=== PATIENT | female | born 1965 | race Caucasian/White ===

== ENCOUNTER 2016-05-08 14:20 | Inpatient (IN) | payer OTHER, MEDICARE ==
[~2016-05-08] VITALS: Ht 157.5 cm; Wt 103.5 kg
[~2016-05-08 14:20] MED LIST: ABILIFY 2MG2 MG PO; ABILIFY 5MG5 MG PO; ABILIFY20 M1 PO; ABILIFY20 MG PO; ASPIRIN EC81 M1 PO; ATORVASTATIN CA80 MG PO; AZITHROMYCIN500 M3 PO; BAYER ASPIRIN C81 MG PO; BENTYL20 M1 PO; CARBAMAZEPINE400 M1 PO; COLCHICINE0.6 M2 PO; COLCHICINE0.6 MG PO; DIAZEPAM5 MG PO; FENOFIBRATE145 M1 PO; FLU VACCINE 0.0.5 ML IM; FLUTICASONE PRO16 GM NASB; FOLIC ACID1 M1 PO; FUROSEMIDE20 M1 PO; GABAPENTIN300 MG PO; GABAPENTIN600 M1 PO; HYDROCODONE/ACE1 TA2 PO; IBUPROFEN600 M1 PO; LANTUS SOL100 UNIT/1 SC; LEVOTHYROXINE50 MCG PO; LINZESS145 MC1 PO; LINZESS145 MCG PO; LIPITOR40 M1 PO; LITHIUM CARBON300 M4 PO; LOPID 600 MG T600 MG PO; MASON NATURAL2000 IU PO; METFORMIN HCL1000 M1 PO; MIRALAX17 GM PO; MOTRIN 600 MG600 MG PO; OMEGA-3 ACID ETH1 GM PO; PANTOPRAZOLE SO40 M1 PO; PANTOPRAZOLE SO40 MG PO; PERCOCET 325 MG1 TA2 PO; PERCOCET 5-3251 EACH PO; PNEUMOVAX 0.5M0.5 ML IM; PREDNISONE 10MG10 M1 PO; PREDNISONE10 M2 PO; PROAIR HFA0.09 MG/Ac INH; PROAIR HFA8.5 GM INH; PROTONIX40 M3 PO; QUETIAPINE FUM100 MG PO; REMERON 15MG TA15 MG PO; RISPERDAL0.5 M1 PO; RISPERDAL2 M1 PO; RISPERIDONE PO; RISPERIDONE0.5 MG PO; RISPERIDONE1 MG PO; SERTRALINE HCL100 MG PO; SERTRALINE HYD100 MG PO; SYMBICORT 16010.2 GM INH; TEGRETOL 100MG100 MG PO; TEGRETOL200 MG PO; TESSALON PERLE100 MG PO; TRAMADOL HCL50 M1 PO; TRAZODONE100 MG PO; VALACYCLOVIR500 M1 PO; VITAMIN D250000 UNIT PO; XANAX1 M1 PO; XANAX1 MG PO; ZITHROMAX Z-PA250 M1 PO; ZOFRAN ODT4 M1 PO; ZOFRAN4 M2 PO; ZOLPIDEM TARTRAT5 MG PO
--- NOTE | 2016-05-08 16:10 | ED GENERAL ADULT ---
History of Present Illness General Chief Complaint: General Adult Stated Complaint: COUGH AND CONGESTION HX OF COPD Source: patient Exam Limitations: no limitations Vital Signs & Intake/Output Vital Signs & Intake/Output Vital Signs Date Time Temp Pulse Resp B/P Pulse O2 O2 Flow FiO2 Ox Delivery Rate 05/08 1821 96.6 78 18 140/64 93 Nasal 2.0L Cannula 05/08 1757 93 Nasal 2.0L Cannula 05/08 1744 93 05/08 1435 99.2 79 20 153/83 93 Room Air Allergies Coded Allergies: codeine (Severe, ITCH 08/09/15) lemon (Severe, SOB 08/09/15) propranolol (Severe, SHOCK PER PT 08/09/15) Reconcile Medications Albuterol Sulfate (Proair Hfa) 8.5 GM HFA.AER.AD 1-2 PUF INH Q4-6 PRN PRN COPD (Reported) Alprazolam (Xanax) 1 MG TABLET 1 TAB PO TID ANXIETY (Reported) Aripiprazole (Abilify) 20 MG TABLET 1 TAB PO QHS MENTAL HEALTH (Reported) Aspirin (Ecotrin*) 81 MG TABLET.DR 1 TAB PO QAM HEART/BLOOD (Reported) Atorvastatin Calcium (Lipitor) 40 MG TABLET 1 TAB PO QHS CHOLESTEROL ( Reported) Budesonide/Formoterol Fumarate (Symbicort 160-4.5 Mcg Inhaler) 10.2 GM HFA.AER.AD 2 PUF INH BID COPD (Reported) Carbamazepine (Carbamazepine XR) 400 MG TAB.ER.12H 1 TAB PO BID TRIGEMINAL NEURALGIA (Reported) Colchicine 0.6 MG TABLET 1 TAB PO DAILY PERICARDITIS (Reported) Ergocalciferol (Vitamin D2) (Vitamin D2) 50,000 UNIT CAPSULE 1 CAP PO QTHURS SUPPLEMENT (Reported) Fenofibrate Nanocrystallized (Fenofibrate) 145 MG TABLET 1 TAB PO DAILY CHOLESTEROL/TRIGLYCERIDES (Reported) Fluticasone Propionate 16 GM SPRAY.SUSP 2 SPRAY NASB DAILY ALLERGIES ( Reported) Folic Acid 1 MG TABLET 1 TAB PO QAM SUPPLEMENT (Reported) Furosemide 20 MG TABLET 1.5 TAB PO DAILY FLUID (Reported) Gabapentin 600 MG TABLET 1 TAB PO BID NEUROPATHY (Reported) Ibuprofen 600 MG TABLET 1 TAB PO 4XDP PRN PAIN (Reported) Insulin Glargine,Hum.rec.anlog (Lantus Solostar) 100 UNIT/ML (3 ML) INSULN.PEN 22 UNIT SC QPM DM (Reported) Levothyroxine Sodium 50 MCG TABLET 1 TAB PO DAILY AC THYROID (Reported) Linaclotide (Linzess) 145 MCG CAPSULE 1 CAP PO QAM CIC (Reported) [place] Carbonate 300 MG CAPSULE 1 CAP PO TID DEPRESSION (Reported) Metformin HCl 1,000 MG TABLET 1 TAB PO BID DIABETES (Reported) Pantoprazole Sodium (Protonix) 40 MG TABLET.DR 1 TAB PO DAILY GERD (Reported) Sertraline HCl 100 MG TABLET 2 TAB PO QAM MENTAL HEALTH (Reported) Triage Note: PT PRESENTS TO ER C/O OF COUGH AND CONGESTION SINCE THIS AM. PT STATES VISTING NURSE REPORTED SYMPTOMS TO MD AND TOLD PT TO COME TO ER. PT HAS A HX OF COPD WITH SATS NORMALLY 94% ON RA. PT O2 SAT 93% ON RA ON ARRIVAL. Triage Nurses Notes Reviewed? yes Onset: Gradual Duration: day(s): (1) Timing: recent history Injury Environment: home Severity: moderate Severity Numbers: 5 No Modifying Factors: none Associated Symptoms: cough HPI: Patient is a 50-year-old female with history of COPD presenting to the emergency department with chief complaint of upper respiratory congestion, cough, wheezing has been getting worse over the past 24 hours. She's been using her inhalers at home with little to no relief. Denies any nausea or vomiting. Denies any chest pain or palpitations. No lower extremity edema. Denies any sputum production. She reports that as a dry cough. History of similar symptoms of bronchitis. Past History Travel History Traveled to [place] past 21 day No Medical History Any Pertinent Medical History? see below for history Neurological: dizziness, peripheral neuropathy, TIA, TRIGEMINAL NEURALGIA NEUROPATHY EENT: NONE Cardiovascular: hyperlipidemia, HIGH TRYGLCERIDES recent cardiac catheterizations were negative for occlusive coronary artery disease PERICARDITIS Respiratory: bronchitis, obstructive sleep apnea, pneumonia, BIPAP Gastrointestinal: ACID REFLUX CONSTIPAT- CHRONIC/IDEOPA ABDOMINAL HERNIA Hepatic: CHOLELITHIASIS CHOLECYSTECTOMY Renal: NONE Musculoskeletal: R ANKLE FX AND REPAIR Psychiatric: anxiety, bipolar disease, depression Endocrine: HYPOTHYROIDISM DIABETES? 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 No Review of Systems Review of Systems Constitutional: Reports: no symptoms. Comments Review of systems: See HPI, All other systems negative. Constitutional, no chills fever or weight loss HEENT: No visual changes no sore throat Cardiovascular: No chest pain ,palpitation , orthopnea or ankle swelling Skin, no jaundice no rashes Respiratory: No sputum or hemoptysis GI: No nausea no vomiting : No dysuria No hematuria Muscle skeletal: no back pain, no neck pain, Neurologic: No numbness no confusion NO [place] Psych: No stress anxiety Immunology: No splenectomy or history of AIDS Physical Exam Physical Exam General Appearance: well developed/nourished, no apparent distress, alert, awake , comfortable Comments: Well-developed well-nourished person in no acute distress HEENT: Pupils equally round and reactive to light and accommodation. Nose is atraumatic. Pharynx is mildly erythematous, no exudate, uvula midline. No swelling or edema. Neck: Supple, no lymphadenopathy, normal range of motion without pain or tenderness Back: Nontender, no CVA tenderness. Full range of motion Cardiovascular: Regular rate and rhythms no murmurs rubs or gallops, normal JVP Respiratory: Chest nontender. No respiratory distress.diffuse wheezing to auscultation bilaterally Extremity: No edema, no calf tenderness to palpation, normal and equal pulses. Neuro: Alert oriented x3 Skin: No appreciable rash on exposed skin, skin is warm and dry. Psych: Mood and affect is normal, memory and judgment is normal. Core Measures ACS in differential dx? Yes CVA/TIA Diagnosis: No Severe Sepsis Present: No Septic Shock Present: No Progress Differential Diagnoses I considered the following diagnoses in my evaluation of the patient: COPD exacerbation, pneumonia, upper respiratory infection, viral syndrome, sinusitis Plan of Care: Orders Procedure Date/time Status Heart Healthy Diet 05/08 D Active TROPONIN LEVEL 05/08 1725 Active MAGNESIUM 05/08 1725 Active COMPREHENSIVE METABOLIC PANEL 05/08 1725 Active CBC WITHOUT DIFFERENTIAL 05/08 1725 Complete EKG 05/08 1725 Active Laboratory Tests 05/08/16 1750: Anion Gap 15, Estimated GFR > 60, BUN/Creatinine Ratio 18.6, Glucose 127 H, Calcium 10.2, Magnesium 1.9, Total Bilirubin 0.5, AST 18, ALT 27, Alkaline Phosphatase 54, Troponin I Pending, Total Protein 8.1, Albumin 5.2 H, Globulin 2.9, Albumin/Globulin Ratio 1.8, CBC w Diff NO MAN DIFF REQ, RBC 4.72, MCV 91.7, MCH 30.1, RDW 13.4, MPV 9.1, Gran % 76.9 H, Lymphocytes % 14.8 L, Monocytes % 5.3, Eosinophils % 2.0, Basophils % 1.0, Absolute Granulocytes 7.2 H, Absolute Lymphocytes 1.4, Absolute Monocytes 0.5, Absolute Eosinophils 0.2, Absolute Basophils 0.1, PUBS MCHC 32.8 L Diagnostic Imaging: Viewed by Me: Radiology Read. Discussed w/RAD: Radiology Read. Radiology Impression: PATIENT: DAIJA DONAHUE PRESENT AGE: 50 PATIENT ACCOUNT NO: [id number] : 65 LOCATION: [facility] ORDERING PHYSICIAN: TRACEY BEJARANO SERVICE DATE: 05/08/16 EXAM TYPE: RAD - XRY-CHEST XRAY, PA AND LATERAL EXAMINATION: XR CHEST CLINICAL INFORMATION: Cough. Shortness of breath. COMPARISON: Chest radiograph 2015. CT scan of the chest 03/10/2016. TECHNIQUE: PA and lateral views of the chest were obtained. FINDINGS: A loop recorder projects over the left cardiac border. Lungs are well-expanded. There is no focal consolidative disease, pleural effusion, or pneumothorax. The cardiac silhouette and upper mediastinal contours are normal. No acute osseous finding. IMPRESSION: No acute finding. Specifically no consolidative disease or effusion. Initial ED EKG: sinus rhythm at 72 bpm, nonspecific T changes Prior EKG: unchanged Comments: Patient trying supplemental oxygen which is new. Oxygen saturation goes down to 86-87 percent on room air with ambulation. Patient reporting shortness of breath with ambulation. This was after continuous neb treatment and prednisone. Patient will be admitted for COPD exacerbation. Departure Departure Time of Disposition: 1832 Disposition: STILL A PATIENT Condition: Stable Clinical Impression Primary Impression: COPD exacerbation Referrals: KENNY STEVENS D.O. (PCP/Family) Departure Forms: Customer Survey General Discharge Information Admission Note Spoke With: KALEE LEBRON MD Documentation of Exam: Documentation of any treatments & extenuating circumstances including Concerns Regarding Discharge (functional status, medication knowledge or non-compliance, living conditions, etc.) that warrant an admission rather than observation: Patient requiring supplemental oxygen may require IV antibiotics, pulmonology consult, titrating of oxygen. The need for supplemental oxygen is new for this patient. Discharged at this time would be medically harmful. Critical Care Note Critical Care Note Critical Care Time: non-applicable
--- NOTE | 2016-05-08 16:35 | NUR ---
PT PRESENTS TO ER C/O OF COUGH AND CONGESTION SINCE THIS AM. PT STATES VISTING NURSE REPORTED SYMPTOMS TO MD AND TOLD PT TO COME TO ER. PT HAS A HX OF COPD WITH SATS NORMALLY 94% ON RA. PT O2 SAT 93% ON RA ON ARRIVAL. WRITTEN BY ADAMA CRUZ
--- NOTE | 2016-05-08 16:36 | NUR ---
PT EVALUATED BY DARCI FLYNN, MEDICATED WITH PREDNISONE PER EMAR. RESP CALLED FOR DUONEB.
--- NOTE | 2016-05-08 16:48 | RADIOLOGY REPORT ---
EXAMINATION: XR CHEST CLINICAL INFORMATION: Cough. Shortness of breath. COMPARISON: Chest radiograph 03/16/2016. CT scan of the chest 03/10/2016. TECHNIQUE: PA and lateral views of the chest were obtained. FINDINGS: A loop recorder projects over the left cardiac border. Lungs are well-expanded. There is no focal consolidative disease, pleural effusion, or pneumothorax. The cardiac silhouette and upper mediastinal contours are normal. No acute osseous finding. IMPRESSION: No acute finding. Specifically no consolidative disease or effusion.
--- NOTE | 2016-05-08 16:50 | NUR ---
RESP AT BEDSIDE FOR DUONEB.
--- NOTE | 2016-05-08 17:10 | NUR ---
AMBULATORY O2 SAT DROPPED FROM 91% TO 87%
--- NOTE | 2016-05-08 17:40 | NUR ---
HEART HEALTHY DINNER TRAY ORDERED.
--- NOTE | 2016-05-08 17:55 | NUR ---
20G HEPLOCK PLACED IN RIGHT AC. FLUSHED PER PROTOCOL. NO REDNESS, SWELLING, HEAT, OR PAIN AT SITE. LABS DRAWN. LAV, YELLOW, BLUE, AND WETZEL SENT TO LAB. PT. TOLERATED PROCEDURE WELL.
--- NOTE | 2016-05-08 17:56 | NUR ---
RESP AT BEDSIDE FOR TX.
[2016-05-08 18:00] LABS: ABSOLUTE BASOPHIL COUNT 0.1 /CUMM (0.0-0.2); ABSOLUTE EOSINOPHIL COUNT 0.2 /CUMM (0.0-0.7); ABSOLUTE GRANULOCYTE CT 7.2 /CUMM (1.4-6.5); ABSOLUTE LYMPH COUNT 1.4 /CUMM (1.2-3.4); ABSOLUTE MONOCYTE COUNT 0.5 /CUMM (0.10-0.60); GRANULOCYTE % 76.9 % (42.2-75.2); HEMATOCRIT 43.3 % (37-47); MEAN CORPUSCULAR HGB 30.1 PG (27.0-31.0); MEAN CORPUSCULAR HGB CONC 32.8 G/DL (33.0-37.0); MEAN CORPUSCULAR VOLUME 91.7 FL (81.0-99.0); MEAN PLATELET VOLUME 9.1 FL (7.4-10.4); PLATELET COUNT 280 /CUMM (130-400); RBC DISTRIBUTION WIDTH 13.4 % (11.5-14.5); RED BLOOD CELL CT 4.72 /CUMM (4.20-5.40); WHITE BLOOD CELL COUNT 9.3 /CUMM (4.8-10.8)
--- NOTE | 2016-05-08 19:11 | NUR ---
PT. RESTING COMFORTABLY AT THIS TIME. OFFERS NO COMPLAINTS. PT. AWARE OF ADMISSION TO HOSPITAL. AWAITING BED ASSIGNMENT. VSS. NO ACUTE DISTRESS NOTED. WILL CONTINUE TO MONITOR.
--- NOTE | 2016-05-08 19:17 | NUR ---
PT. GIVEN DINNER TRAY AT THIS TIME.
--- NOTE | 2016-05-08 20:43 | NUR ---
HOUSE STAFF TO BEDSIDE FOR PT EVAL
--- NOTE | 2016-05-08 21:04 | Admission Certification ---
Admission Certification Certification Statement - As attending physician, I certify that at the time of - admission, based on clinical presentation, severity of - symptoms, need for further diagnostic testing and - therapeutic interventions, and risk of adverse outcomes - without in-hospital treatment, in my clinical assessment, - this patient requires an acute hospital stay for a minimum - of two nights or longer. I have also considered psychsocial - factors such as support system, advanced age, financial - issues, cognitive issues, and failed out-patient treatments, - past re-admission history, safety of patient, and lack of - compliance as applicable. Specific rationale supporting this admission is: Acute on chronic hypoxic respiratory failure, COPD exacerbation, acute bronchitis.
[2016-05-08 21:24] LABS: LITHIUM 0.6 mmol/L (0.6-1.2)
--- NOTE | 2016-05-08 21:35 | NUR ---
BED ASSIGNMENT [phone]
--- NOTE | 2016-05-08 21:36 | History & Physical ---
JUNIE JAUREGUI 05/08/165: General Information and HPI MD Statement: I have seen and personally examined DAIJA DONAHUE and documented this H&P. The patient is a 50 year old F who presented with a patient stated chief complaint of [difficulty breathing]. Source of Information: patient, old records Exam Limitations: no limitations History of Present Illness: This is a 50-year-old woman with a past medical history significant for obesity, hypertension, SHIRIN on CPAP,COPD on 2 L of oxygen nocturnally, hyperlipidemia, diabetes mellitus, hx of 2 cardiac caths without CAD, migraines, PTSD, depression, bipolar disorder, s/p ovarian cancer with hysterectomy. Presented to the emergency department for the chief complaint of upper respiratory symptoms of nasal congestions, runny nose, sinus tenderness, productive cough with yellow greenish sputum, expiratory wheezing, patient stated the symptoms started yesterday, also she report a fever of 102.2 at home this morning, she reports chills and sweating, she denied any sick contacts. Patient stated that she try her Symbicort and Ventolin but it did not help her so she came to the hospital for evaluation. Patient also reports episode of watery diarrhea without any blood around 4 times that was started yesterday and it resolved today. She reports some nausea without any vomiting. Patient deny any chest pain, chest pressure, palpitation, orthopnea, lower extremity edema, abdominal pain, constipation, vomiting, hemoptysis, hematuria, dysuria, ICU admission, intubation. Patient stated that she quit smoking 4 months ago, but she reported passive smoking. In the emergency department the patient received multiple TRC nebs, she was given oral prednisone 60 mg. She was placed on 2 L nasal cannula oxygen, she was afebrile. Chest x-ray negative for any consolidation. Previous admission was in February 2016 due to COPD exacerbation, she was treated with IV azithromycin, IV steroid and she was sent home on steroid taper. Allergies/Medications Allergies: Coded Allergies: codeine (Severe, ITCH 08/09/15) lemon (Severe, SOB 08/09/15) propranolol (Severe, SHOCK PER PT 08/09/15) Home Med list Albuterol Sulfate (Proair Hfa) 8.5 GM HFA.AER.AD 1-2 PUF INH Q4-6 PRN PRN COPD (Reported) Alprazolam (Xanax) 1 MG TABLET 1 TAB PO TID ANXIETY (Reported) Aripiprazole (Abilify) 20 MG TABLET 1 TAB PO QHS MENTAL HEALTH (Reported) Aspirin (Ecotrin*) 81 MG TABLET.DR 1 TAB PO QAM HEART/BLOOD (Reported) Atorvastatin Calcium (Lipitor) 40 MG TABLET 1 TAB PO QHS CHOLESTEROL ( Reported) Budesonide/Formoterol Fumarate (Symbicort 160-4.5 Mcg Inhaler) 10.2 GM HFA.AER.AD 2 PUF INH BID COPD (Reported) Carbamazepine (Carbamazepine XR) 400 MG TAB.ER.12H 1 TAB PO BID TRIGEMINAL NEURALGIA (Reported) Colchicine 0.6 MG TABLET 1 TAB PO DAILY PERICARDITIS (Reported) Ergocalciferol (Vitamin D2) (Vitamin D2) 50,000 UNIT CAPSULE 1 CAP PO QTHURS SUPPLEMENT (Reported) Fenofibrate Nanocrystallized (Fenofibrate) 145 MG TABLET 1 TAB PO DAILY CHOLESTEROL/TRIGLYCERIDES (Reported) Fluticasone Propionate 16 GM SPRAY.SUSP 2 SPRAY NASB DAILY ALLERGIES ( Reported) Folic Acid 1 MG TABLET 1 TAB PO QAM SUPPLEMENT (Reported) Furosemide 20 MG TABLET 1.5 TAB PO DAILY FLUID (Reported) Gabapentin 600 MG TABLET 1 TAB PO BID NEUROPATHY (Reported) Ibuprofen 600 MG TABLET 1 TAB PO 4XDP PRN PAIN (Reported) Insulin Glargine,Hum.rec.anlog (Lantus Solostar) 100 UNIT/ML (3 ML) INSULN.PEN 22 UNIT SC QPM DM (Reported) Levothyroxine Sodium 50 MCG TABLET 1 TAB PO DAILY AC THYROID (Reported) Linaclotide (Linzess) 145 MCG CAPSULE 1 CAP PO QAM CIC (Reported) [place] Carbonate 300 MG CAPSULE 1 CAP PO TID DEPRESSION (Reported) Metformin HCl 1,000 MG TABLET 1 TAB PO BID DIABETES (Reported) Pantoprazole Sodium (Protonix) 40 MG TABLET. 1 TAB PO DAILY GERD (Reported) Sertraline HCl 100 MG TABLET 2 TAB PO QAM MENTAL HEALTH (Reported) Past History Travel History Traveled to [place] past 21 day No Medical History Neurological: dizziness, peripheral neuropathy, TIA, TRIGEMINAL NEURALGIA NEUROPATHY EENT: NONE Cardiovascular: hyperlipidemia, HIGH TRYGLCERIDES recent cardiac catheterizations were negative for occlusive coronary artery disease PERICARDITIS Respiratory: bronchitis, obstructive sleep apnea, pneumonia, BIPAP Gastrointestinal: ACID REFLUX CONSTIPAT- CHRONIC/IDEOPA ABDOMINAL HERNIA Hepatic: CHOLELITHIASIS CHOLECYSTECTOMY Renal: NONE Musculoskeletal: R ANKLE FX AND REPAIR Psychiatric: anxiety, bipolar disease, depression Endocrine: HYPOTHYROIDISM DIABETES? 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 Ambulation: independent IADLs Independent: shopping, housework, finances, food prep, telephone, transportation , medication admin. Review of Systems Review of Systems Constitutional: Reports: see HPI. Cardiovascular: Reports: see HPI. Respiratory: Reports: see HPI. GI: Reports: see HPI. Genitourinary: Reports: see HPI. Exam & Diagnostic Data Last 24 Hrs of Vital Signs/I&O Vital Signs Date Time Temp Pulse Resp B/P Pulse O2 O2 Flow FiO2 Ox Delivery Rate 05/08 2248 98.5 83 21 122/72 97 Nasal 3.0L Cannula 05/08 2237 93 Nasal 2.0L Cannula 05/08 2134 97.3 73 18 145/67 93 Nasal 2.5L Cannula 05/08 1821 96.6 78 18 140/64 93 Nasal 2.0L Cannula 05/08 1757 93 Nasal 2.0L Cannula 05/08 1744 93 05/08 1435 99.2 79 20 153/83 93 Room Air Intake & Output 05/08 1600 05/08 0800 05/08 0000 Intake Total Output Total Balance Patient 220 lb Weight Physical Exam General Appearance Alert, Oriented X3, Cooperative, Mild Distress HEENT PERRLA, EOMI Neck Supple Cardiovascular Regular Rate, Normal S1, Normal S2 Lungs DIFFUSE EXPIRATORY WHEEZING, DECREASED AIR ENTRY BIBASILAR Abdomen Normal Bowel Sounds, Soft, No Tenderness Extremities No Edema, Normal Pulses Last 24 Hrs of Labs/Matthieu: Laboratory Tests 05/08/16 1750: Anion Gap 15, Estimated GFR > 60, BUN/Creatinine Ratio 18.6, Glucose 127 H, Calcium 10.2, Magnesium 1.9, Total Bilirubin 0.5, AST 18, ALT 27, Alkaline Phosphatase 54, Troponin I < 0.01, Total Protein 8.1, Albumin 5.2 H, Globulin 2.9, Albumin/Globulin Ratio 1.8, CBC w Diff NO MAN DIFF REQ, RBC 4.72, MCV 91.7, MCH 30.1, RDW 13.4, MPV 9.1, Gran % 76.9 H, Lymphocytes % 14.8 L, Monocytes % 5.3, Eosinophils % 2.0, Basophils % 1.0, Absolute Granulocytes 7.2 H, Absolute Lymphocytes 1.4, Absolute Monocytes 0.5, Absolute Eosinophils 0.2, Absolute Basophils 0.1, PUBS MCHC 32.8 L, [place] 0.6 Microbiology 05/08 2107 URINE ROUT: Legionella Antigen - ORD 05/08 2107 URINE ROUT: Streptococcus pneumoniae Antigen (M - ORD 05/08 2107 LOWER RESP: Respiratory Culture - ORD 05/08 2107 LOWER RESP: Gram Stain - ORD Diagnostic Data CXR Results EXAMINATION: XR CHEST CLINICAL INFORMATION: Cough. Shortness of breath. COMPARISON: Chest radiograph 03/16/2016. CT scan of the chest 03/10/2016. TECHNIQUE: PA and lateral views of the chest were obtained. FINDINGS: A loop recorder projects over the left cardiac border. Lungs are well-expanded. There is no focal consolidative disease, pleural effusion, or pneumothorax. The cardiac silhouette and upper mediastinal contours are normal. No acute osseous finding. IMPRESSION: No acute finding. Specifically no consolidative disease or effusion. Assessment/Plan Assessment: This is a 50-year-old woman with a past medical history significant for obesity, hypertension, SHIRIN on CPAP,COPD on 2 L of oxygen nocturnally, hyperlipidemia, diabetes mellitus, hx of 2 cardiac caths without CAD, migraines, PTSD, depression, bipolar disorder, s/p ovarian cancer with hysterectomy. Presented to the emergency department for the chief complaint of COPD exacerbation. Problem list: -Acute and chronic respiratory failure due to COPD exacerbation. -COPD exacerbation most likely due to bronchitis -Nasal congestions, headaches most likely due to acute sinusitis -Diarrhea, Legionella pneumonia need to be ruled out. -Mild Dehydration Plan: -Admit patient to general medicine floor -Vitals every shift, I and O's -We will give the patient 1 dose of IV ceftriaxone -Start the patient on IV azithromycin -We'll give the patient 1 dose 125 mg of Solu-Medrol after that started 40 mg every 6. -Sputum culture, Streptococcus and legionella antigen. -TRC nebs as needed, BiPAP/CPAP, keep oxygen more than 91% -Pulmonary consultation in a.m. -We will give the patient maintenance dose of IV fluid at 75 mL per hour for 1 baG, REstart the patient diuretic tomorrow morning. -Accu-Chek, insulin sliding scale, diabetic diet, hold metformin -Repeat CBC and basic electrolyte in the morning -Continue home medication including Symbicort -Pain pathway -DVT prophylaxis: SC Lovenox -DNR, patient agreed for intubation if needed As Ranked By This Provider Problem List: 1. COPD exacerbation Core Measures/Miscellaneous Acute Coronary Syndrome ACS Diagnosis: No Cerebrovascular Accident CVA/TIA Diagnosis: No Congestive Heart Failure CHF Diagnosis: No Venous Thromboembolism VTE Risk Factors: Acute medical illness, Age > 40, CHF or Resp failure, Obesity VTE Prophylaxis Ordered Inpt: Mech & Pharm No Mech VTE prophylaxis d/t: No contraindications No VTE Pharm Prophylaxis d/t: No contraindications VTE Diagnosis: No VTE Type: NONE VTE Confirmed by (Test): NONE Severe Sepsis Severe Sepsis Present: No Septic Shock Septic Shock Present: No Miscellaneous Documentation Attending Case Discussed With: KALEE LEBRON MD Primary Care Physician: KENNY STEVENS D.O. 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 Level of Patient Care: General Medicine Resident Review Statement Resident Statement: examined this patient, discussed with internet assessor, agreed with internet assessor, reviewed EMR data (avail), reviewed images, amended to note WILLIS LEBORN MD 05/08/16 0968: Attending MD Review Statement Attending Statement Attending MD Statement: examined this patient, discuss w/resident/PA/MORTGAGE BROKER, agreed w/resident/PA/MORTGAGE BROKER Attending Assessment/Plan: 50 yo morbidly obese F ex-smoker with h/o pericarditis with effusion, COPD on 2L nocturnal O2, SHIRIN on CPAP, HTN, HLD, here with 2-day h/o URI symptoms ( rhinorrhea, congestion), cough productive of yellow phlegm, GUEVARA and wheezing. Fever of 102 at home. Also reports diarrhea without abdominal discomfort. She tried inhalers without relief. No sick contacts. Received flu shot. Last admitted to [place] Feb 2016 for COPDE. Never intubated. Follows Dr. Wall. VSS. Ambulatory O2 sats dropped from 91% to 87% on RA. AAO, diaphoretic, no pharyngeal erythema, in mild respiratory distress, Chest b/l reduced air entry with prolonged expiratory wheezes. Labs unremarkable. EKG: SR, old ST-T wave changes. PFT (2014): restrictive and obstructive ventilatory defect with a partially reversible component. 1. Acute on chronic hypoxic respiratory failure, COPD exacerbation in the setting of acute bronchitis. Cannot rule out pneumonia, although CXR is negative. TRC nebs, check flu swab, will check urine legionella and strep Ag, sputum culture, IV azithro, IV steroids, Pulm consult (Dr. aWll). 2. DM. Hold metformin, continue insulin. 3. Bipolar disorder. Check lithium levels and restart lithium if range acceptable. 4. If diarrhea persists, consider stool studies, Cdiff. DVT ppx Lovenox. 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
--- NOTE | 2016-05-08 21:52 | NUR ---
PT MEDICATED WITH SOLU MEDROL AND ROCEPHINE PER EMAR. ZITHROMAX INFUSING PER EMAR.
--- NOTE | 2016-05-08 21:53 | NUR ---
REPORT GIVEN TO ADAMA GUO
[2016-05-08 22:48] VITALS: BP 122/72
--- NOTE | 2016-05-08 23:06 | NUR ---
SPOKE WITH CAN STRIPER DIRECTOR [employer] AND ADVISED PT FINGERSTICK IS 163. CAN STRIPER ADVISED THIS RN TO ADMINISTER 15 UNITSOF LEVEMIR AND RECHECK FINGERSTICK AT 0300.
--- NOTE | 2016-05-09 01:55 | NUR ---
LATE ENTRY NURSING NOTE: PT ARRIVED TO FLOOR VIA STRETCHER WITHOUT FAMILY AT BEDSIDE. PT AOX3, 2LNC, IND W/RW. LUNG SOUNDS INS/EXP THROUGHOUT. PT SOB AT REST. #20 IV RAC FLUSHES WELL. ADMINISTERED IVF ORDERED. NONPRODUCTIVE COUGH. PT AWARE A CX IS ORDERED WELL A URINE. PT HX OF FALLS PLACED BED ALARM & ALPS. FINGERSTICK 163. ADMINISTERED SCHEDULED NIGHT TIME MEDS. ORIENTED PT TO CALL ZEE. BED IN LOWEST POSITION, CB WITHIN REACH. PT WEARS GLASSES AND HAS ON AT THIS TIME. PT HAD ONLY THE CLOTHES SHE WAS WEARING AT TIME OF ADMISSION. PT RESTING COMFORTABLY A THIS TIME.
--- NOTE | 2016-05-09 05:35 | PN- Housestaff ---
SHEEBA BLISS 05/09/16 0534: Subjective Follow-up For: COPD exacerbation Subjective: The patient was comfortable this morning. She did not have any complaints. She was afebrile overnight and vitals were stable overnight. Stated that she improved compared to yesterday. Shortness of breath or chest pain. Currently on 2 L nasal cannula saturations between 95-96%. Review of Systems Constitutional: Reports: see HPI. Objective Last 24 Hrs of Vital Signs/I&O Vital Signs Date Time Temp Pulse Resp B/P Pulse O2 O2 Flow FiO2 Ox Delivery Rate 05/09 0249 76 94 05/09 0247 95 Nasal 2.0L Cannula 05/09 0000 BIPAP 2.0L 05/08 2248 98.5 83 21 122/72 97 Nasal 3.0L Cannula 05/08 2237 93 Nasal 2.0L Cannula 05/08 2134 97.3 73 18 145/67 93 Nasal 2.5L Cannula 05/08 1821 96.6 78 18 140/64 93 Nasal 2.0L Cannula 05/08 1757 93 Nasal 2.0L Cannula 05/08 1744 93 05/08 1435 99.2 79 20 153/83 93 Room Air Intake & Output 05/09 0800 05/09 0000 05/08 1600 Intake Total Output Total Balance Patient 220 lb 220 lb Weight Physical Exam General Appearance: No Acute Distress Other Physical Findings: General Exam: AAOx3, No acute distress, Skin: No rashes, no breakdown HEENT: PERRLA, EOMI Neck: Supple, No JVD No cervical lymphadenopathy CVS: Reg Rate, Normal S1,S2, No MGR Resp: Normal air entry, crackles bilaterally. Abdomen: Soft, No tenderness, Normal Bowel Sounds Neuro: Normal Speech, Strength 5/5 b/l x 4 extremities, Sensation intact, CN III -XII NL, Reflexes 2+ Extremities: No cyanosis, pedal edema Current Medications: Current Medications Sig/Ralph Start time Last Medication Dose Route Stop Time Status Admin Acetaminophen 650 MG Q6P PRN 05/085 AC PO Albuterol Sulfate 3 ML ONCE ONE 05/08 1615 DC 05/08 INH 05/08 161 1743 Albuterol Sulfate 3 ML ONCE ONE 05/08 1615 DC 05/08 INH 05/08 1616 1757 Albuterol Sulfate 3 ML ONCE ONE 05/08 1615 DC 05/08 INH 05/08 1616 1757 Alprazolam 1 MG TID 05/08 2200 AC 05/08 PO 05/15 2159 2321 Aripiprazole 20 MG AT BEDTIME 05/09 2200 AC PO Aspirin Buffered 81 MG QAM 05/09 1000 AC PO Atorvastatin Calcium 40 MG AT BEDTIME 05/09 2200 AC PO Azithromycin 500 MG DAILY 05/08 2115 AC 05/08 Dextrose/Water 250 ML IV 2148 Budesonide/ 2 PUF BID 05/08 2200 AC Formoterol Fumarate INH Carbamazepine 400 MG BID 05/09 1000 AC PO Ceftriaxone Sodium 0 .STK-MED ONE 05/08 2122 DC .ROUTE Ceftriaxone Sodium 1,000 MG DAILY 05/08 2114 DC 05/08 IV 2148 Colchicine 600 MCG DAILY 05/09 1000 AC PO Enoxaparin Sodium 40 MG DAILY 05/09 1000 AC SC Enoxaparin Sodium 0 .STK-MED ONE 05/08 2122 DC SC Fenofibrate 145 MG DAILY 05/09 1000 AC PO Fluticasone 2 SPRAY DAILY 05/09 1000 AC Propionate TRUMAN Furosemide 30 MG DAILY 05/09 1000 AC PO Gabapentin 600 MG BID 05/08 2200 AC 05/08 PO 2320 Insulin Aspart 0 TIDAC 05/09 0800 AC SC Insulin Detemir 22 UNITS QPM 05/08 2200 AC 05/08 SC 2319 Ipratropium [place] 2.5 ML ONCE ONE 05/08 1615 DC 05/08 INH 05/08 1616 1743 Levothyroxine Sodium 0.05 MG DAILY AC 05/09 0700 AC PO Linaclotide 145 MCG DAILY 05/09 1000 AC PO [place] Carbonate 300 MG TID 05/08 2200 AC PO Methylprednisolone 40 MG Q6 05/08 2359 AC 05/08 IV 2320 Methylprednisolone 0 .STK-MED ONE 05/08 2121 DC .ROUTE Methylprednisolone 125 MG ONCE ONE 05/08 2114 DC 05/08 IV 05/08 2115 214 Omeprazole 40 MG DAILY AC 05/09 0700 AC PO Potassium Chloride 20 MEQ ONCE ONE 05/09 0045 DC PO 05/09 0046 Prednisone 0 .STK-MED ONE 05/08 1632 DC PO Prednisone 60 MG ONCE ONE 05/08 1615 DC 05/08 PO 05/08 1616 1635 Sertraline HCl 200 MG QAM 05/09 1000 AC PO Sodium Chloride 1,000 ML .[id number] 05/08 2115 AC 05/08 IV 05/09 1034 2232 Last 24 Hrs of Lab/Matthieu Results Last 24 Hrs of Labs/Mics: Laboratory Tests 05/08/16 1750: Anion Gap 15, Estimated GFR > 60, BUN/Creatinine Ratio 18.6, Glucose 127 H, Calcium 10.2, Phosphorus 3.2, Magnesium 1.9, Total Bilirubin 0.5, AST 18, ALT 27 , Alkaline Phosphatase 54, Troponin I < 0.01, Total Protein 8.1, Albumin 5.2 H, Globulin 2.9, Albumin/Globulin Ratio 1.8, CBC w Diff NO MAN DIFF REQ, RBC 4.72, MCV 91.7, MCH 30.1, RDW 13.4, MPV 9.1, Gran % 76.9 H, Lymphocytes % 14.8 L, Monocytes % 5.3, Eosinophils % 2.0, Basophils % 1.0, Absolute Granulocytes 7.2 H, Absolute Lymphocytes 1.4, Absolute Monocytes 0.5, Absolute Eosinophils 0.2, Absolute Basophils 0.1, PUBS MCHC 32.8 L, [place] 0.6 Microbiology 05/08 2107 URINE ROUT: Legionella Antigen - ORD 05/08 2107 URINE ROUT: Streptococcus pneumoniae Antigen (M - ORD 05/08 2107 LOWER RESP: Respiratory Culture - ORD 05/08 2107 LOWER RESP: Gram Stain - ORD Assessment/Plan Assessment: She is a middle-aged woman with a past medical history of former smoker, COPD, obesity, obstructive sleep apnea, bipolar disorder is being evaluated for cough, fever likely from COPD exacerbation. At the time of admission, temperature 99.2, pulse rate 79, respiratory rate 20, blood pressure 153/83, 88% on room air pulse ox which improved to 93% and 97% on 2 L oxygen. Labs indicated WBC 9.3, hemoglobin 14.2, platelets 280, normal electrolytes sodium 142, potassium 3.8, bicarbonate 27, renal function-BUN 13, serum creatinine 0.7, lithium level 0.6, AST 27, ALT 54. Last PFT (2014): Moderate obstructive and restrictive pattern. With significant response to bronchodilators decreased TLC a significant decrease in DLCO. Differential diagnosis: #1 COPD exacerbation Below is the problem list and plan: #1 cough, fever-likely due to acute exacerbation of COPD. Patient has been started on azithromycin. She was given 1 dose of ceftriaxone in the ED. TRC names. Oxygen nasal cannula to keep oxygen saturation above 92%. Continue Symbicort twice daily. Continue Solu-Medrol 40 mg every 8. Although Legionella was in the differential, there was no change in sodium or liver function, which makes Legionella unlikely. Lower respiratory cultures. Titrate steroids starting in the a.m. If the patient shows symptomatic improvement in the next 24 hours, could be discharged soon. #2 diabetes-insulin sliding scale. Blood sugar in the range of 130-150s. #3 bipolar disorder-continue lithium. Problem List: 1. COPD exacerbation 2. Weakness generalized Pain Ratin Pain Location: None Pain Goal: Pain 4 or less Pain Plan: Tylenol when necessary Tomorrow's Labs & Rationales: CBC, BEP AINSLEY CABALLERO MD 05/09/16 1521: Attending MD Review Statement Attending Statement Attending MD Statement: examined this patient, discuss w/resident/PA/HEMODIALYSIS CHARGE NURSE, agreed w/resident/PA/HEMODIALYSIS CHARGE NURSE, reviewed EMR data (avail) Attending Assessment/Plan: 50F PMH HTN, COPD on 2L NC, SHIRIN admitted with productive cough, sinus congestion , and shortness of breath in the setting of acute bronchitis and acute exacerbation of COPD with hypoxemia to 87% on 2L on admission with acute hypoxemic respiratory failure. Patient feels tired today but breathing is improved. Improved on 2L NC. Still wheezing on exam. 1. Acute exacerbation of COPD 2. Acute bronchitis 3. Acute hypoxemic respiratory failure Plan - Continue Solumedrol 40mg IV q8h - Continue Azithromycin - TRC/nebulizer treatments - Follow up echocardiogram - Follow pulmonary recommendations - Continue home medications - DVT PPx
[2016-05-09 08:25] LABS: ABSOLUTE BASOPHIL COUNT 0 /CUMM (0.0-0.2); ABSOLUTE EOSINOPHIL COUNT 0 /CUMM (0.0-0.7); ABSOLUTE MONOCYTE COUNT 0.3 /CUMM (0.10-0.60); EOSINOPHIL % 0.6 % (0-5)
--- NOTE | 2016-05-09 08:27 | Cons- Pulmonary ---
TRACEY LEGGETT 05/09/16 0814: General Information and HPI Consulting Request Date of Consult: 05/09/16 Requested By: Syed ZUNIGA Reason for Consult: COPD exacerbation History of Present Illness: 50-year-old morbidly obese former smoker woman ith h/o pericarditis with effusion, COPD on 2L nocturnal O2, SHIRIN on CPAP, HTN, HLD, here with 2-day h/o URI symptoms (rhinorrhea, congestion and sinus fullness and fever), cough productive of yellow phlegm. No sick contacts, no recent travel. Received flu shot. Last admitted to [place] Feb 2016 for COPD. Never intubated. VSS. Initially desatted on ambulation to 88% in room air. Currently temperature 97.6 pulse 58 respiratory rate 20 blood pressure 114/74 pulse ox 92% 2 L nasal cannula. AOx3, mild respiratory distress. Patient is able to communicate in full sentences. Head and neck: Slightly dry mucous membranes. Chest b/l reduced air entry with prolonged expiratory wheezes. Labs unremarkable. EKG: SR, old ST-T wave changes. PFT (2014): Moderate obstructive and restrictive pattern. With significant response to bronchodilators decreased TLC a significant decrease in DLCO. Allergies/Medications Allergies: Coded Allergies: codeine (Severe, ITCH 08/09/15) lemon (Severe, SOB 08/09/15) propranolol (Severe, SHOCK PER PT 08/09/15) Home Med List: Albuterol Sulfate (Proair Hfa) 8.5 GM HFA.AER.AD 1-2 PUF INH Q4-6 PRN PRN COPD (Reported) Alprazolam (Xanax) 1 MG TABLET 1 TAB PO TID ANXIETY (Reported) Aripiprazole (Abilify) 20 MG TABLET 1 TAB PO QHS MENTAL HEALTH (Reported) Aspirin (Ecotrin*) 81 MG TABLET.DR 1 TAB PO QAM HEART/BLOOD (Reported) Atorvastatin Calcium (Lipitor) 40 MG TABLET 1 TAB PO QHS CHOLESTEROL ( Reported) Budesonide/Formoterol Fumarate (Symbicort 160-4.5 Mcg Inhaler) 10.2 GM HFA.AER.AD 2 PUF INH BID COPD (Reported) Carbamazepine (Carbamazepine XR) 400 MG TAB.ER.12H 1 TAB PO BID TRIGEMINAL NEURALGIA (Reported) Colchicine 0.6 MG TABLET 1 TAB PO DAILY PERICARDITIS (Reported) Ergocalciferol (Vitamin D2) (Vitamin D2) 50,000 UNIT CAPSULE 1 CAP PO QTHURS SUPPLEMENT (Reported) Fenofibrate Nanocrystallized (Fenofibrate) 145 MG TABLET 1 TAB PO DAILY CHOLESTEROL/TRIGLYCERIDES (Reported) Fluticasone Propionate 16 GM SPRAY.SUSP 2 SPRAY NASB DAILY ALLERGIES ( Reported) Folic Acid 1 MG TABLET 1 TAB PO QAM SUPPLEMENT (Reported) Furosemide 20 MG TABLET 1.5 TAB PO DAILY FLUID (Reported) Gabapentin 600 MG TABLET 1 TAB PO BID NEUROPATHY (Reported) Ibuprofen 600 MG TABLET 1 TAB PO 4XDP PRN PAIN (Reported) Insulin Glargine,Hum.rec.anlog (Lantus Solostar) 100 UNIT/ML (3 ML) INSULN.PEN 22 UNIT SC QPM DM (Reported) Levothyroxine Sodium 50 MCG TABLET 1 TAB PO DAILY AC THYROID (Reported) Linaclotide (Linzess) 145 MCG CAPSULE 1 CAP PO QAM CIC (Reported) Kosse Carbonate 300 MG CAPSULE 1 CAP PO TID DEPRESSION (Reported) Metformin HCl 1,000 MG TABLET 1 TAB PO BID DIABETES (Reported) Pantoprazole Sodium (Protonix) 40 MG TABLET.DR 1 TAB PO DAILY GERD (Reported) Sertraline HCl 100 MG TABLET 2 TAB PO QAM MENTAL HEALTH (Reported) Current Medications: Current Medications Sig/Ralph Start time Last Medication Dose Route Stop Time Status Admin Acetaminophen 650 MG Q6P PRN 05/08 2114 AC PO Albuterol Sulfate 3 ML ONCE ONE 05/08 1615 DC 05/08 INH 05/08 1616 1743 Albuterol Sulfate 3 ML ONCE ONE 05/08 1615 DC 05/08 INH 05/08 1616 1757 Albuterol Sulfate 3 ML ONCE ONE 05/08 1615 DC 05/08 INH 05/08 1616 1757 Alprazolam 1 MG TID 05/08 2199 AC 05/08 PO 05/15 2159 2321 Aripiprazole 20 MG AT BEDTIME 05/090 AC PO Aspirin Buffered 81 MG QAM 05/09 1000 AC PO Atorvastatin Calcium 40 MG AT BEDTIME 05/09 2200 AC PO Azithromycin 500 MG DAILY 05/08 2114 AC 05/08 Dextrose/Water 250 ML IV 2148 Budesonide/ 2 PUF BID 05/08 220 AC Formoterol Fumarate INH Carbamazepine 400 MG BID 05/09 1000 AC PO Ceftriaxone Sodium 0 .STK-MED ONE 05/08 2122 DC .ROUTE Ceftriaxone Sodium 1,000 MG DAILY 05/08 2114 DC 05/08 IV 2148 Colchicine 600 MCG DAILY 05/09 1000 AC PO Enoxaparin Sodium 40 MG DAILY 05/09 1000 AC SC Enoxaparin Sodium 0 .STK-MED ONE 05/08 2122 DC SC Fenofibrate 145 MG DAILY 05/09 1000 AC PO Fluticasone 2 SPRAY DAILY 05/09 1000 AC Propionate TRUMAN Furosemide 30 MG DAILY 05/09 1000 AC PO Gabapentin 600 MG BID 05/08 2200 AC 05/08 PO 2320 Insulin Aspart 0 TIDAC 05/09 0800 AC SC Insulin Aspart 1 UNITS .STK-MED ONE 05/08 2314 DC SC 05/08 2315 Insulin Detemir 22 UNITS QPM 05/08 2200 AC 05/08 SC 2319 Ipratropium [place] 2.5 ML ONCE ONE 05/08 1614 DC 05/08 INH 05/08 1616 1743 Levothyroxine Sodium 0.05 MG DAILY AC 05/09 0700 AC 05/09 PO 0559 Linaclotide 145 MCG DAILY 05/09 1000 AC PO [place] Carbonate 300 MG TID 05/08 2200 AC PO Methylprednisolone 40 MG Q6 05/08 2359 AC 05/09 IV 0559 Methylprednisolone 0 .STK-MED ONE 05/08 2121 DC .ROUTE Methylprednisolone 125 MG ONCE ONE 05/08 2114 DC 05/08 IV 05/08 2115 214 Omeprazole 40 MG DAILY AC 05/09 0700 AC 05/09 PO 0559 Potassium Chloride 20 MEQ ONCE ONE 05/09 0045 DC 05/09 PO 05/09 0046 0559 Prednisone 0 .STK-MED ONE 05/08 1631 DC PO Prednisone 60 MG ONCE ONE 05/08 1614 DC 05/08 PO 05/08 1616 1635 Sertraline HCl 200 MG QAM 05/09 1000 AC PO Sodium Chloride 1,000 ML .[id number] 05/08 2114 DC 05/08 IV 05/09 1034 2232 Review of Systems Review of Systems Constitutional: Reports: see HPI, fever. Denies: chills, diaphoresis, malaise, weakness, unexplained weight loss. Cardiovascular: Reports: see HPI. Denies: chest pain, edema, orthopena, palpitations, peripheral edema, syncope. Respiratory: Reports: cough, short of breath, sputum production, wheezing. GI: Reports: see HPI, diarrhea. Denies: abdominal pain, bloating, constipation, distention, bowel incontinence, melena, nausea, bloody stool, changes in stool, vomiting, steatorrhea. Genitourinary: Denies: discharge, dysuria, frequency, hematuria, hesitation, nocturia, pain, urgency. Musculoskeletal: Denies: back pain, gout, joint pain, joint swelling, muscle pain, muscle stiffness, neck pain. Skin: Denies: cysts, change in skin color, change in hair/nails, dryness, erythema, jaundice, lesions, lymphangitis, lumps, moles, rash. Neurological/Psychological: Denies: anxiety, ataxia, cognitive dysfunction, confusion, depressed, dementia, emotional problems, headache, numbness, paresthesia, pre-existing deficit, petit mal seizures, tingling, tremors, tonic-clonic seizures, unable to move lower ext , unable to move upper ext, weakness, other. All Other Systems: Reviewed and Negative Past History Travel History Traveled to [place] past 21 day No Medical History Blood Transfusion Hx: No Neurological: dizziness, peripheral neuropathy, TIA, TRIGEMINAL NEURALGIA NEUROPATHY EENT: NONE Cardiovascular: hyperlipidemia, HIGH TRYGLCERIDES recent cardiac catheterizations were negative for occlusive coronary artery disease PERICARDITIS Respiratory: bronchitis, obstructive sleep apnea, pneumonia, BIPAP Gastrointestinal: ACID REFLUX CONSTIPAT- CHRONIC/IDEOPA ABDOMINAL HERNIA Hepatic: CHOLELITHIASIS CHOLECYSTECTOMY Renal: NONE Musculoskeletal: R ANKLE FX AND REPAIR Psychiatric: anxiety, bipolar disease, depression Endocrine: diabetes, HYPOTHYROIDISM Blood Disorders: NONE Cancer(s): ovarian cancer, SARCOMA L LEG NURSES EDUCATOR/Reproductive: OVARIAN CA TOTAL HYSTERECTOMY Surgical History Surgical History: ABD HERNIA REPAIR X4 HYSTERECTOMY CHOLECYSTECTOMY R ANKLE SX POST FX SARCOMA REMOVAL L LEG Family History Relations & Conditions If Any: MOTHER Relation not specified for: *No pertinent family history FH: diabetes mellitus Psychosocial History Where Do You Live? Home Services at Home: None Smoking Status: Former Smoker Functional Ability ADLs Independent: dressing, eating, toileting, bathing. Ambulation: independent IADLs Independent: shopping, housework, finances, food prep, telephone, transportation , medication admin. Exam & Diagnostic Data Last 24 Hrs of Vital Signs/I&O Vital Signs Date Time Temp Pulse Resp B/P Pulse O2 O2 Flow FiO2 Ox Delivery Rate 05/09 0845 97.6 58 20 114/74 92 Nasal 2.0L Cannula 05/09 0539 58 92 05/09 0249 76 94 05/09 0247 95 Nasal 2.0L Cannula 05/09 0000 BIPAP 2.0L 05/08 2248 98.5 83 21 122/72 97 Nasal 3.0L Cannula 05/08 2237 93 Nasal 2.0L Cannula 05/08 2134 97.3 73 18 145/67 93 Nasal 2.5L Cannula 05/08 1821 96.6 78 18 140/64 93 Nasal 2.0L Cannula 05/08 1757 93 Nasal 2.0L Cannula 05/08 1744 93 05/08 1435 99.2 79 20 153/83 93 Room Air Intake & Output 05/09 1600 05/09 0800 05/09 0000 Intake Total 800 Output Total 500 Balance 300 Intake, IV 600 Intake, Oral 200 Output, Urine 500 Patient 220 lb Weight Physical Exam General Appearance: alert, awake, mild distress, obese Head: normal appearance Eyes: Left: PERRL, EOMI. Ears, Nose, Throat: normal pharynx Neck: normal inspection, supple, full range of motion, no JVD Respiratory: wheezing Cardiovascular: regular rate/rhythm Extremities: no edema Last 48 Hrs of Labs/Matthieu: Laboratory Tests 05/09/16 0730: Anion Gap 12, Estimated GFR > 60, BUN/Creatinine Ratio 30.0 H, CBC w Diff NO MAN DIFF REQ, RBC 4.01 L, MCV 91.9, MCH 30.7, RDW 13.3, MPV 9.5, Gran % 78.4 H , Lymphocytes % 16.4 L, Monocytes % 4.2, Eosinophils % 0.6, Basophils % 0.4, Absolute Granulocytes 5.8, Absolute Lymphocytes 1.2, Absolute Monocytes 0.3, Absolute Eosinophils 0, Absolute Basophils 0, PUBS MCHC 33.4 05/08/16 1750: Anion Gap 15, Estimated GFR > 60, BUN/Creatinine Ratio 18.6, Glucose 127 H, Calcium 10.2, Phosphorus 3.2, Magnesium 1.9, Total Bilirubin 0.5, AST 18, ALT 27 , Alkaline Phosphatase 54, Troponin I < 0.01, Total Protein 8.1, Albumin 5.2 H, Globulin 2.9, Albumin/Globulin Ratio 1.8, CBC w Diff NO MAN DIFF REQ, RBC 4.72, MCV 91.7, MCH 30.1, RDW 13.4, MPV 9.1, Gran % 76.9 H, Lymphocytes % 14.8 L, Monocytes % 5.3, Eosinophils % 2.0, Basophils % 1.0, Absolute Granulocytes 7.2 H, Absolute Lymphocytes 1.4, Absolute Monocytes 0.5, Absolute Eosinophils 0.2, Absolute Basophils 0.1, PUBS MCHC 32.8 L, Kosse 0.6 Microbiology 05/09 599 URINE ROUT: Legionella Antigen - COMP 05/09 599 URINE ROUT: Streptococcus pneumoniae Antigen (M - COMP Assessment/Plan Impression/Plan: Assessment and plan #1 COPD exacerbation: Increased phlegm production and cough with one despite of high-grade fever. No radiology, laboratory evidence of pneumonia, in the setting my line of thinking is more towards acute viral bronchitis. * Watch off antibiotics if patient spikes fever send blood cultures * Solu-Medrol 40 mg every 8 * Albuterol INH 3 mL every 4 * Symbicort 160-4.5 2 puffs twice a day * TRC/nebs [id number] as needed * Keep on O2 nasal cannula with target O2 saturation above 92% * Follow sputum cx * Follow urine streptococcal and Legionella antigen results * DC IV fluids #2 history of minimal pericardial effusion detected on echo February * Obtain new echo to assess the pericardial effusion #3 diabetes Managed her medical team #4 bipolar disorder-stable Follow lithium level-manage per medical team DVT prophylaxis Lovenox DNR/DNI Problem List: 1. COPD exacerbation Consult Acknowledgment - Thank you for your consult request. SAÚL SOLANO MD 05/09/16 1013: Assessment/Plan Other Findings/Comments: Saúl Ring M.D. have examined this patient, reviewed available EMR data, personally reviewed images, discussed with resident/PA/DESIGN PRINTING MACHINE SETTER, discussed management plan with housestaff and nursing staff, discussed managment plan all of healthcare providers, discussed management plan with patient and/or family, agreed with resident/PA/DESIGN PRINTING MACHINE SETTER. The past history and parts of the chart have been autopopulated. Impression 50-year-old woman with a history of COPD and obstructive sleep apnea with an exacerbation of COPD likely secondary to viral bronchitis. Plan -Discontinue IV fluids -Reduce Solu-Medrol to 40 mg IV every 8 -TRC and nebs -Continue home inhalers -We will repeat echo to ensure there is no element of pericardial effusion contributing to symptoms -Five-day course of Zithromax is appropriate -DVT prophylaxis at all times Consult Acknowledgment - Thank you for your consult request.
[2016-05-09 08:45] VITALS: BP 114/74
[2016-05-09 08:53] LABS: ABSOLUTE GRANULOCYTE CT 5.8 /CUMM (1.4-6.5); ABSOLUTE LYMPH COUNT 1.2 /CUMM (1.2-3.4); BASOPHIL % 0.4 % (0.0-2.0); GRANULOCYTE % 78.4 % (42.2-75.2); MEAN CORPUSCULAR HGB 30.7 PG (27.0-31.0); MEAN CORPUSCULAR HGB CONC 33.4 G/DL (33.0-37.0); MEAN CORPUSCULAR VOLUME 91.9 FL (81.0-99.0); MEAN PLATELET VOLUME 9.5 FL (7.4-10.4); PLATELET COUNT 255 /CUMM (130-400); RBC DISTRIBUTION WIDTH 13.3 % (11.5-14.5); RED BLOOD CELL CT 4.01 /CUMM (4.20-5.40); WHITE BLOOD CELL COUNT 7.4 /CUMM (4.8-10.8)
[2016-05-09 08:58] LABS: HEMATOCRIT 36.8 % (37-47)
[2016-05-09 16:00] VITALS: BP 122/74
[2016-05-09 23:40] VITALS: BP 108/55
--- NOTE | 2016-05-10 05:55 | PN- Housestaff ---
SHEEBA BLISS 05/10/16 0554: Subjective Follow-up For: copd exacerbation Subjective: This Was comfortable this morning. She stated that she did not have any chest pain. Shortness of breath improved compared to yesterday. She did not sleep well overnight. Blood sugars-110, 154, 166. Review of Systems Constitutional: Reports: see HPI. Objective Last 24 Hrs of Vital Signs/I&O Vital Signs Date Time Temp Pulse Resp B/P Pulse O2 O2 Flow FiO2 Ox Delivery Rate 05/10 0404 55 97 05/10 0141 57 95 05/10 0000 95 CPAP 05/09 2340 97.5 57 18 108/55 93 CPAP 05/09 2209 79 92 05/09 1619 96 Nasal 2.0L Cannula 05/09 1600 Nasal 2.0L Cannula 05/09 1600 97.5 59 18 122/74 96 Nasal 2.0L Cannula 05/09 1034 Nasal 2.0L Cannula 05/09 0845 97.6 58 20 114/74 92 Nasal 2.0L Cannula 05/09 0800 94 Nasal 2.0L Cannula Intake & Output 05/10 0800 05/10 0000 05/09 1600 Intake Total 1050 1450 Output Total 450 800 Balance 600 650 Intake, IV 250 250 Intake, Oral 800 1200 Output, Urine 450 800 Physical Exam General Appearance: No Acute Distress Other Physical Findings: General Exam: AAOx3, No acute distress, Skin: No rashes, no breakdown HEENT: PERRLA, EOMI Neck: Supple, No JVD No cervical lymphadenopathy CVS: Reg Rate, Normal S1,S2, No MGR Resp: Normal air entry, bilateral ronchi Abdomen: Soft, No tenderness, Normal Bowel Sounds Neuro: Normal Speech, Strength 5/5 b/l x 4 extremities, Sensation intact, CN III -XII NL, Reflexes 2+ Extremities: No cyanosis, pedal edema Current Medications: Current Medications Sig/Ralph Start time Last Medication Dose Route Stop Time Status Admin Acetaminophen 650 MG Q6P PRN 05/08 2114 AC PO Albuterol Sulfate 3 ML EVERY 4 HRS/AWAKE 05/09 1200 AC 05/09 INH 194 Alprazolam 1 MG TID 05/08 2199 AC 05/09 PO 05/15 Aripiprazole 20 MG AT BEDTIME 05/09 2199 AC 05/09 PO 2046 Aspirin Buffered 81 MG QAM 05/09 1000 AC 05/09 PO 0927 Atorvastatin Calcium 40 MG AT BEDTIME 05/09 2200 AC 05/09 PO 204 Azithromycin 500 MG DAILY@2200 05/09 2200 AC 05/09 Dextrose/Water 250 ML IV 204 Azithromycin 500 MG DAILY 05/08 211 DC 05/08 Dextrose/Water 250 ML IV 214 Budesonide/ 2 PUF BID 05/08 2200 AC 05/09 Formoterol Fumarate INH 2046 Carbamazepine 400 MG BID 05/09 2200 AC 05/09 PO 211 Carbamazepine 400 MG BID 05/09 1000 DC 05/09 PO 0927 Colchicine 600 MCG DAILY 05/09 1000 AC 05/09 PO 0927 Enoxaparin Sodium 40 MG DAILY 05/09 1000 AC 05/09 SC 0927 Fenofibrate 145 MG DAILY 05/09 1000 AC 05/09 PO 0927 Fluticasone 2 SPRAY DAILY 05/09 1000 AC 05/09 Propionate TRUMAN 0926 Furosemide 30 MG DAILY 05/09 1000 AC 05/09 PO 0928 Gabapentin 600 MG BID 05/080 AC 05/09 PO 2047 Insulin Aspart 0 TIDAC 05/09 0800 AC 05/09 IN 1711 Insulin Detemir 22 UNITS QPM 05/08 2199 AC 05/09 SC 2046 Levothyroxine Sodium 0.05 MG DAILY AC 05/09 0700 AC 05/09 PO 0559 Linaclotide 145 MCG DAILY 05/09 1000 AC 05/09 PO 0928 [place] Carbonate 300 MG TID 05/08 2200 AC 05/09 PO 2047 Methylprednisolone 40 MG Q8 05/09 1400 AC 05/09 IV 2046 Methylprednisolone 40 MG Q6 05/08 2359 RI 05/09 IV 0559 Omeprazole 40 MG DAILY AC 05/09 0700 AC 05/09 PO 0559 Patient Medication 1 ED .STK-MED ONE 05/09 1402 RI Teaching ED 05/09 1403 Sertraline HCl 200 MG QAM 05/09 1000 AC 05/09 PO 0928 Sodium Chloride 1,000 ML .[id number] 05/08 2115 RI 05/08 IV 05/09 1034 2232 Last 24 Hrs of Lab/Matthieu Results Last 24 Hrs of Labs/Mics: Laboratory Tests 05/09/16 0730: Anion Gap 12, Estimated GFR > 60, BUN/Creatinine Ratio 30.0 H, CBC w Diff NO MAN DIFF REQ, RBC 4.01 L, MCV 91.9, MCH 30.7, RDW 13.3, MPV 9.5, Gran % 78.4 H , Lymphocytes % 16.4 L, Monocytes % 4.2, Eosinophils % 0.6, Basophils % 0.4, Absolute Granulocytes 5.8, Absolute Lymphocytes 1.2, Absolute Monocytes 0.3, Absolute Eosinophils 0, Absolute Basophils 0, PUBS MCHC 33.4 Microbiology 05/09 1630 LOWER RESP: Respiratory Culture - CAN Cancelled: NUMBER OF SQUAMOUS CELLS INDICATES POOR QUALITY SPECIMEN 05/09 1630 LOWER RESP: Gram Stain - CAN Cancelled: NUMBER OF SQUAMOUS CELLS INDICATES POOR QUALITY SPECIMEN 05/09 0600 URINE ROUT: Legionella Antigen - COMP 05/09 599 URINE ROUT: Streptococcus pneumoniae Antigen (M - COMP Assessment/Plan Assessment: She is a middle-aged woman with a past medical history of former smoker, COPD, obesity, obstructive sleep apnea, bipolar disorder is being evaluated for cough, fever likely from COPD exacerbation. Legionella and strep pneumo antigen negative 05/09/2016. Recent echocardiogram showed ejection fraction of above 65%, with small pericardial effusion. Differential diagnosis: #1 COPD exacerbation Below is the problem list and plan: #1 cough, fever-likely due to acute exacerbation of COPD. Patient has been started on azithromycin. TRC nebs. Oxygen nasal cannula to keep oxygen saturation above 92%. Continue Symbicort twice daily. Continue Solu-Medrol 40 mg every 8. Lower respiratory cultures. Titrate steroids to by mouth's starting in the a.m. #2 diabetes-insulin sliding scale. Blood sugar in the range of 110-150s. #3 bipolar disorder-continue lithium. Problem List: 1. COPD exacerbation Pain Ratin Pain Location: none Pain Goal: Pain 4 or less Pain Plan: tylenol prn Tomorrow's Labs & Rationales: cbc AINSLEY CABALLERO MD 05/10/16 1134: Attending MD Review Statement Attending Statement Attending MD Statement: examined this patient, discuss w/resident/PA/INTRANET SUPPORT, agreed w/resident/PA/INTRANET SUPPORT, reviewed EMR data (avail) Attending Assessment/Plan: 50F PMH HTN, COPD on 2L NC, SHIRIN admitted with productive cough, sinus congestion , and shortness of breath in the setting of acute bronchitis and acute exacerbation of COPD with hypoxemia to 87% on 2L on admission with acute hypoxemic respiratory failure. Patient feels tired today but breathing is improved. Improved on 2L NC. Still wheezing on exam. 1. Acute exacerbation of COPD 2. Acute bronchitis 3. Acute hypoxemic respiratory failure Plan - Continue Solumedrol 40mg IV q12h - Continue Azithromycin - TRC/nebulizer treatments - Follow up echocardiogram - Follow pulmonary recommendations - Continue home medications - DVT PPx
[2016-05-10 08:19] VITALS: BP 112/68
[2016-05-10 09:04] LABS: ABSOLUTE BASOPHIL COUNT 0 /CUMM (0.0-0.2); ABSOLUTE EOSINOPHIL COUNT 0.3 /CUMM (0.0-0.7); ABSOLUTE LYMPH COUNT 2.1 /CUMM (1.2-3.4); ABSOLUTE MONOCYTE COUNT 0.3 /CUMM (0.10-0.60); BASOPHIL % 0.3 % (0.0-2.0); EOSINOPHIL % 3.4 % (0-5); GRANULOCYTE % 64.6 % (42.2-75.2); HEMATOCRIT 37.9 % (37-47); MEAN CORPUSCULAR HGB 30.4 PG (27.0-31.0); MEAN CORPUSCULAR HGB CONC 33.2 G/DL (33.0-37.0); MEAN CORPUSCULAR VOLUME 91.6 FL (81.0-99.0); MEAN PLATELET VOLUME 9.5 FL (7.4-10.4); PLATELET COUNT 268 /CUMM (130-400); RBC DISTRIBUTION WIDTH 13.3 % (11.5-14.5); RED BLOOD CELL CT 4.14 /CUMM (4.20-5.40); WHITE BLOOD CELL COUNT 7.7 /CUMM (4.8-10.8)
--- NOTE | 2016-05-10 10:24 | ECHOCARDIOGRAM REPORT ---
DAIJA DONAHUE Age: 50 : 1965 Gender: F Exam Date: 05/09/2016 19:47 Exam Location: [address] [place] [address] Ht (in): 62 Wt (lb): 220 BSA: 2.14 BP: 122 / 74 Ordering Physician: SHEEBA BLISS MD Referring Physician: SHEEBA BLISS MD Technologist: Yue Smion [facility] Room Number: 216-02 Indications: PERICARDIAL EFFUSION Rhythm: Sinus Technical Quality: Technically difficult study FINDINGS Left Ventricle Normal size left ventricle. Normal left ventricular ejection fraction visually estimated at >60%. Mild concentric left ventricular hypertrophy. Normal left ventricular wall motion. Right Ventricle Normal right ventricular size and function. Right Atrium Normal right atrial size. Left Atrium Normal left atrial size. Mitral Valve Mitral valve thickened. Trace mitral regurgitation. Aortic Valve Structurally normal trileaflet aortic valve. No aortic stenosis. No aortic regurgitation. Tricuspid Valve Tricuspid valve not well visualized, grossly normal. Trace tricuspid regurgitation. No evidence of pulmonary hypertension. Pulmonic Valve Pulmonic valve not well visualized, grossly normal. Trace pulmonic regurgitation. Pericardium Small pericardial effusion. No echocardiographic findings to suggest a hemodynamically significant pericardial effusion. Great Vessels Normal size aortic root. CONCLUSIONS Normal left ventricular ejection fraction visually estimated at > 60%. Mild concentric left ventricular hypertrophy. Trace tricuspid regurgitation. No evidence of pulmonary hypertension. Small pericardial effusion. No echocardiographic findings to suggest a hemodynamically significant pericardial effusion. Mariusz Skaggs M.D. (Electronically Signed) Final Date: 10 May 2016 10:23 MEASUREMENTS (Male / Female) Normal Values 2D ECHO LV Diastolic Diameter PLAX 4.0 cm 4.2 - 5.9 / 3.9 - 5.3 cm LV Systolic Diameter PLAX 2.2 cm 2.1 - 4.0 cm LV Fractional Shortening PLAX 45.0 % 25 - 46 % LV Ejection Fraction 2D Teich 76.9 % IVS Diastolic Thickness 1.4 cm LVPW Diastolic Thickness 1.3 cm LV Relative Wall Thickness 0.7 RV Internal Dim ED PLAX 3.7 cm 1.9 - 3.8 cm LVOT Diameter 1.9 cm Aortic Root Diameter 2.4 cm LA Systolic Diameter LX 4.0 cm 3.0 - 4.0 / 2.7 - 3.8 cm LA Volume 31.0 cm 18 - 58 / 22 - 52 cm Ascending Aorta Diameter 2.7 cm DOPPLER AV Peak Velocity 150.0 cm/s AV Peak Gradient 9.0 mmHg AV Mean Velocity 107.0 cm/s AV Mean Gradient 5.0 mmHg AV Velocity Time Integral 32.0 cm LVOT Peak Velocity 117.0 cm/s LVOT Peak Gradient 5.5 mmHg LVOT Mean Velocity 85.7 cm/s LVOT Mean Gradient 3.0 mmHg LVOT Velocity Time Integral 29.2 cm LVOT Stroke Volume 82.8 cm AV Area Cont Eq vti 2.6 cm AV Area Cont Eq pk 2.2 cm MV Peak Velocity 146.0 cm/s MV Peak Gradient 8.5 mmHg MV Mean Velocity 68.2 cm/s MV Mean Gradient 3.0 mmHg Mitral E Point Velocity 130.0 cm/s Mitral A Point Velocity 90.3 cm/s Mitral E to A Ratio 1.4 MV PHT Velocity 147.0 cm/s MV Deceleration [place] 492.0 cm/s MV Pressure Half Time 89.6 ms MV Area PHT 2.5 cm MV Deceleration Time 211.0 ms TR Peak Velocity 122.0 cm/s TR Peak Gradient 6.0 mmHg Right Atrial Pressure 5.0 mmHg Pulmonary Artery Systolic Pressu 11.0 mmHg Right Ventricular Systolic Press 11.0 mmHg PV Peak Velocity 141.0 cm/s PV Peak Gradient 8.0 mmHg PV Mean Velocity 101.0 cm/s PV Mean Gradient 5.0 mmHg PV Velocity Time Integral 37.2 cm LV E' Lateral Velocity 11.5 cm/s Mitral E to LV E' Lateral Ratio 11.3 LV E' Septal Velocity 11.5 cm/s Mitral E to LV E' Septal Ratio 11.3
--- NOTE | 2016-05-10 12:24 | PN- Pulmonary ---
Subjective HPI/Critical Care Issues: pt seen and examined still with dyspnea has not been out of bed mild cough no n/v/d/c no cp Objective Current Medications: Current Medications Sig/Ralph Start time Last Medication Dose Route Stop Time Status Admin Acetaminophen 650 MG Q6P PRN 05/08 2114 AC PO Albuterol Sulfate 3 ML EVERY 4 HRS/AWAKE 05/09 1200 AC 05/10 INH 1128 Alprazolam 1 MG TID 05/08 2200 AC 05/10 PO 05/15 2159 0815 Aripiprazole 20 MG AT BEDTIME 05/09 220 AC 05/09 PO 2047 Aspirin Buffered 81 MG QAM 05/09 1000 AC 05/10 PO 0817 Atorvastatin Calcium 40 MG AT BEDTIME 05/09 2200 AC 05/09 PO 2047 Azithromycin 500 MG DAILY@05/09 AC 05/09 Dextrose/Water 250 ML IV 2046 Budesonide/ 2 PUF BID 05/08 2199 AC 05/10 Formoterol Fumarate INH 0816 Carbamazepine 400 MG BID 05/09 2200 AC 05/10 PO 0818 Carbamazepine 400 MG BID 05/09 1000 DC 05/09 PO 0927 Colchicine 600 MCG DAILY 05/09 1000 AC 05/10 PO 0818 Enoxaparin Sodium 40 MG DAILY 05/09 1000 AC 05/10 SC 0817 Fenofibrate 145 MG DAILY 05/09 1000 AC 05/10 PO 0816 Fluticasone 2 SPRAY DAILY 05/09 1000 AC 05/10 Propionate TRUMAN 0819 Furosemide 30 MG DAILY 05/09 1000 AC 05/10 PO 0817 Gabapentin 600 MG BID 05/08 2200 AC 05/10 PO 0816 Insulin Aspart 0 TIDAC 05/09 0800 AC 05/09 SC 1711 Insulin Detemir 22 UNITS QPM 05/08 2200 AC 05/09 SC 2046 Levothyroxine Sodium 0.05 MG DAILY AC 05/09 0700 AC 05/10 PO 0556 Linaclotide 145 MCG DAILY 05/09 1000 AC 05/10 PO 0818 [place] Carbonate 300 MG TID 05/08 2200 AC 05/10 PO 0818 Methylprednisolone 40 MG BID 05/100 AC IV Methylprednisolone 40 MG Q8 05/09 1400 DC 05/10 IV 0556 Omeprazole 40 MG DAILY AC 05/09 0700 AC 05/10 PO 0556 Patient Medication 1 ED .STK-MED ONE 05/09 1402 DC Teaching ED 05/09 1403 Sertraline HCl 200 MG QAM 05/09 1000 AC 05/10 PO 0816 Vital Signs & I&O Last 24 Hrs of Vitals and I&O: Vital Signs Date Time Temp Pulse Resp B/P Pulse O2 O2 Flow FiO2 Ox Delivery Rate 05/10 818 97.7 52 18 112/68 97 Nasal 2.5L Cannula 05/10 0800 Nasal 2.0L Cannula 05/10 0800 98 Nasal 2.0L Cannula 05/10 0404 55 97 05/10 0141 57 95 05/10 0000 95 CPAP 05/09 2340 97.5 57 18 108/55 93 CPAP 05/09 2209 79 92 05/09 1619 96 Nasal 2.0L Cannula 05/09 1600 Nasal 2.0L Cannula 05/09 1600 97.5 59 18 122/74 96 Nasal 2.0L Cannula Intake & Output 05/10 1600 05/10 0800 05/10 0000 Intake Total 1050 Output Total 450 Balance 600 Intake, IV 250 Intake, Oral 800 Output, Urine 450 Exam Other Physical Findings: gen awake and alert heent ncat cvs s1, s2 lungs rare rhonchi abd obese ext trace edema Results Last 24 Hrs of Lab Results: Laboratory Tests 05/10/16 0755: CBC w Diff NO MAN DIFF REQ, RBC 4.14 L, MCV 91.6, MCH 30.4, RDW 13.3, MPV 9.5, Gran % 64.6, Lymphocytes % 27.2, Monocytes % 4.5, Eosinophils % 3.4, Basophils % 0.3, Absolute Granulocytes 5.0, Absolute Lymphocytes 2.1, Absolute Monocytes 0.3 , Absolute Eosinophils 0.3, Absolute Basophils 0, PUBS MCHC 33.2 Impression/Plan Impression/Plan Impression/Plan: Impression 50-year-old woman with a history of COPD and obstructive sleep apnea with an exacerbation of COPD likely secondary to viral bronchitis. Plan -Reduce Solu-Medrol to 40 mg IV every 12 -TRC and nebs -Continue home inhalers -Five-day course of Zithromax is appropriate -DVT prophylaxis at all times physical therapy, out of bed
--- NOTE | 2016-05-10 12:52 | NUR ---
11:00 PATIENT AMBULATED ON R.A, VERSES 2L 02. PATIENT DESATED TO 89% AND COMPLAINED OF DIZZINESS. PATIENT BROUGHT BACK TO BED, BP: 120/70/ HR:54. MD. BLISS NOTIFIED RIGHT AFTER WALK ABOUT DIZZINESS. AT 12:45 PATIENT COMPLAINING OF CHEST PAIN. VITALS TAKEN: BP 120/70, HR:64, PATIENT SATING AT 93% ON 2L 02 AND WHEEZY. NOTIFED. EKG ORDERED, TRIPONINS DRAWN. WILL CONTINUE TO MONITOR PATIENT.
[2016-05-10 14:47] VITALS: BP 110/50
--- NOTE | 2016-05-10 14:52 | Event Note ---
Event Note Event Note: Ms Virgen was found to be in distress after she ambulated this afternoon. She also had shortness of breath, and lightheadness. As per the nurse, the pulse rate at that time was 32/min, and BP 120/70. Symptoms resolved after she went back to the bed. She notified the nurse that she had severe chest pain, center of the chest w/ radiation to the back, severity 10/10. She was in acute distress at that time. Vitals- HR 63, Temp 97.8, BP 120/70, Resp 93% 2L. On exam, lungs-ronchi b/l. No abnormal heart sounds. EKG showed non-specific t wave changes. She had minimal relief upon receiving morphine, nitro. First cardiac [id number]. Since, she had a history of two cardiac catheterizations w/ no clear history of coronary heart disease- cardiac etiology was in the differentials. Since she also had a loop recorder implanted and cardiac history was unclear for arrhythmias she was transferred to telemetry for further monitoring. Other differentials- pulmonary embolism, anxiety. Reached out to the oncology navigator banquet lead for further advise. Await call back. Relayed the information to our colleagues on telemetry, to follow up on serial cadiac enzymes and electrocardiograms.
[2016-05-10 16:46] VITALS: BP 110/64
--- NOTE | 2016-05-10 17:29 | Patient Discharge Instructions ---
Discharge Instructions General Discharge Information You were seen/treated for: #1 COPD exacerbation Special Instructions: #1 please follow-up with your primary care provider within one week of discharge #2 please follow-up with your cane furniture maker within 1 week of discharge. #3 please take your medications as prescribed. Acute Coronary Syndrome Inclusion Criteria At DC or during hospital stay patient has or had the following: ACS DIAGNOSIS No Discharge Core Measures Meds if any: Prescribed or Continued at Discharge Meds if any: NOT Prescribed or Continued at Discharge Congestive Heart Failure Inclusion Criteria At DC or during hospital stay patient has or had the following: CHF DIAGNOSIS No Discharge Core Measures Meds if any: Prescribed or Continued at Discharge Meds if any: NOT Prescribed or Continued at Discharge Cerebrovascular accident Inclusion Criteria At DC or during hospital stay patient has or had the following: CVA/TIA Diagnosis No Discharge Core Measures Meds if any: Prescribed or Continued at Discharge Meds if any: NOT Prescribed or Continued at Discharge Venous thromboembolism Inclusion Criteria VTE Diagnosis No VTE Type NONE VTE Confirmed by (Test) NONE Discharge Core Measures - Per Current guidelines, there needs to be overlap - treatment for the first 5 days of Warfarin therapy. - If discharged on Warfarin prior to 5 days of - overlap therapy, the patient will need to be - assessed for post discharge needs including - *Post discharge parental anticoagulation - *Warfarin and/or parental anticoagulation education - *Follow up date to check INR post discharge At least 5 days overlap therapy as Inpatient No Meds if any: Prescribed or Continued at Discharge Note: Overlap Therapy is Warfarin and Anticoagulant Meds if any: NOT Prescribed or Continued at Discharge
[2016-05-10] MEDS ORDERED: ZITHROMAX500 M2 PO (17:31)
[2016-05-10] MEDS ORDERED: PREDNISONE10 M2 PO (17:35)
--- NOTE | 2016-05-10 17:46 | Discharge Summary ---
Visit Information Visit Dates Admission Date: 05/08/16 Hospital Course Course Attending Physician: AINSLEY CABALLERO MD Primary Care Physician: HILDA Christian,[facility] Course: She is a middle-aged woman with a past medical history of former smoker, COPD, obesity, obstructive sleep apnea, bipolar disorder is being evaluated for cough, fever likely from COPD exacerbation. At the time of admission, temperature 99.2, pulse rate 79, respiratory rate 20, blood pressure 153/83, 88% on room air pulse ox which improved to 93% and 97% on 2 L oxygen. Labs indicated WBC 9.3, hemoglobin 14.2, platelets 280, normal electrolytes sodium 142, potassium 3.8, bicarbonate 27, renal function-BUN 13, serum creatinine 0.7, lithium level 0.6, AST 27, ALT 54. Last PFT (2014): Moderate obstructive and restrictive pattern. With significant response to bronchodilators decreased TLC a significant decrease in DLCO. Differential diagnosis: #1 COPD exacerbation Below is the problem list and plan: #1 Cough-likely due to acute exacerbation of COPD. Patient was started on azithromycin. TRC nebs as needed. Required supplemental oxygen-nasal cannula. Pulse ox remained above 92% during the stay on the floor. She was also continued on Symbicort, albuterol. Initially started on Solu-Medrol which were tapered as symptoms improved. Unfortunately, lower respiratory cultures could not be collected. #2 diabetes-she was on basal and short-acting insulin sliding scale. Adequate blood sugar control. #3 bipolar- lithium level-0.6. She was restarted on home dose of lithium. Remained asymptomatic. #4 chest pain-during the stay on the general medicine floor, she developed chest pain for which she was transferred to telemetry for further monitoring. She had a previous admission to [facility] for evaluation of syncope(loop recorder in place ), and history of multiple cardiac catheterizations(w/ no clear evidence of CAD) . Allergies: Coded Allergies: codeine (Severe, ITCH 08/09/15) lemon (Severe, SOB 08/09/15) propranolol (Severe, SHOCK PER PT 08/09/15) Pertinent Lab Results: RAD - XRY-CHEST XRAY, PA AND LATERAL A loop recorder projects over the left cardiac border. Lungs are well-expanded. There is no focal consolidative disease, pleural effusion, or pneumothorax. The cardiac silhouette and upper mediastinal contours are normal. No acute osseous finding. IMPRESSION: No acute finding. Specifically no consolidative disease or effusion. --- ECHOCARDIOGRAM Normal left ventricular ejection fraction visually estimated at > 60%. Mild concentric left ventricular hypertrophy. Trace tricuspid regurgitation. No evidence of pulmonary hypertension. Small pericardial effusion. No echocardiographic findings to suggest a hemodynamically significant pericardial effusion. Disposition Summary Disposition Principal Diagnosis: COPD exacerbation Additional Diagnosis: Obesity Discharge Disposition: home or self care Discharge Instructions General Discharge Information Code Status: Do Not Resucitate/Intubat Patient's Diet: heart healthy diet Patient's Activity: as tolerated Follow-Up Instructions/Appts: 1. Please see your PCP within one week of discharge 2. Please see your wood boatbuilder within one week of discharge. Medications at Discharge Discharge Medications: Continue taking these medications: [place] Carbonate ([place] Carbonate) 300 MG CAPSULE 1 Capsule ORAL THREE TIMES DAILY Comments: DID NOT RECIEVE IN HOSPITAL Gabapentin (Gabapentin) 600 MG TABLET 1 Tablet ORAL TWICE DAILY Comments: Last Taken: 03/12/16 Time: 9AM Levothyroxine Sodium (Levothyroxine Sodium) 50 MCG TABLET 1 Tablet ORAL DAILY BEFORE BREAKFAST Qty = 30 Comments: Last Taken: 08/12/15 Time: 6:00 AM Aripiprazole (Abilify) 20 MG TABLET 1 Tablet ORAL TAKE AT BEDTIME Comments: Last Taken: 03/11/16 Time: 9PM Atorvastatin Calcium (Lipitor) 40 MG TABLET 1 Tablet ORAL TAKE AT BEDTIME Comments: Last Taken: 03/11/16 Time: 9PM Alprazolam (Xanax) 1 MG TABLET 1 Tablet ORAL THREE TIMES DAILY Comments: PER PT DOSE INCREASE FROM 1MG PO BID TO 1MG PO TID Last Taken: 03/12/16 Time: 9:00 AM Sertraline HCl (Sertraline HCl) 100 MG TABLET 2 Tablet ORAL Every Morning Comments: Last Taken: 03/12/16 Time: 9:00 AM Aspirin (Ecotrin*) 81 MG TABLET.DR 1 Tablet ORAL Every Morning Comments: Last Taken: 03/12/16 Time: 9:00 AM Folic Acid (Folic Acid) 1 MG TABLET 1 Tablet ORAL Every Morning Comments: DID NOT RECIEVE IN HOSPITAL Carbamazepine (Carbamazepine XR) 400 MG TAB.ER.12H 1 Tablet ORAL TWICE DAILY Comments: Last Taken: 03/12/16 Time: 9:00 AM Colchicine (Colchicine) 0.6 MG TABLET 1 Tablet ORAL DAILY Comments: Last Taken: 03/12/16 Time: 9:00 AM Linaclotide (Linzess) 145 MCG CAPSULE 1 Capsule ORAL Every Morning Comments: DID NOT RECEIVE WHILE IN HOSPITAL Ergocalciferol (Vitamin D2) (Vitamin D2) 50,000 UNIT CAPSULE 1 Capsule ORAL EVERY SATURDAY Comments: DID NOT RECEIVE WHILE IN HOSPITAL Albuterol Sulfate (Proair Hfa) 8.5 GM HFA.AER.AD 1-2 Puff Inhale through mouth EVERY 4-6 HOURS NEEDED as needed for COPD Comments: DID NOT RECEIVE WHILE IN HOSPITAL Budesonide/Formoterol Fumarate (Symbicort 160-4.5 Mcg Inhaler) 10.2 GM HFA.AER.AD 2 Puff Inhale through mouth TWICE DAILY Qty = 10 Comments: Last Taken: 03/12/16 Time: 9:00 AM Ibuprofen (Ibuprofen) 600 MG TABLET 1 Tablet ORAL 4 times daily as needed as needed for PAIN Comments: DID NOT RECIEVE IN HOSPITAL Fluticasone Propionate (Fluticasone Propionate) 16 GM SPRAY.SUSP 2 [place] Both sides of nose DAILY Qty = 16 Comments: Last Taken: 03/12/16 Time: 9AM Pantoprazole Sodium (Protonix) 40 MG TABLET.DR 1 Tablet ORAL DAILY Comments: DID NOT RECIEVE IN HOSPITAL Metformin HCl (Metformin HCl) 1,000 MG TABLET 1 Tablet ORAL TWICE DAILY Qty = 90 Comments: DID NOT RECIEVE IN HOSPITAL Insulin Glargine,Hum.rec.anlog (Lantus Solostar) 100 UNIT/ML (3 ML) INSULN.PEN 22 Unit Inject into fatty tissue Every night Qty = 15 Comments: DID NOT RECIEVE IN HOSPITAL Fenofibrate Nanocrystallized (Fenofibrate) 145 MG TABLET 1 Tablet ORAL DAILY Qty = 85 Comments: Last Taken: 03/12/16 Time: 9AM Furosemide (Furosemide) 20 MG TABLET 1.5 Tablet ORAL DAILY Qty = 90 Comments: NOT GIVEN IN HOSPITAL Start taking the following new medications: Azithromycin (Zithromax) 500 MG TABLET 1 Tablet ORAL DAILY Qty = 3 No Refills Prednisone (Prednisone) 10 MG TABLET 1 Tablet ORAL DAILY Qty = 13 No Refills Instructions: please take 4 tabs(40mg) on 05/12 3 tabs(30mg) on 05/13,05/14 2 tabs(20mg) on 05/15,05/16 1 tab (10mg) on 05/17,05/18.
[2016-05-10 20:13] VITALS: BP 122/60
[2016-05-10 22:15] VITALS: BP 122/60
[2016-05-11] VITALS: BP 112/70
--- NOTE | 2016-05-11 08:02 | PN- Housestaff ---
CHARLI ZUNIGA,[facility] 05/11/16 0801: Subjective Follow-up For: copd exacerbation chest pain Tele-Events Since Last Visit: SB, 40-60, No overnight events Subjective: I saw and examined the patient at bedside, she was alert and oriented, in no acute distress. patient did not report any chest pain in the morning, had wheezing bilaterally in the lungs. In the evening she reported chest pain 7/10 midsternal pressure like, with cold sweats and upon getting out of bed. We ordered troponin and EKG and signed out to the vocational guidance counselor team to follow up. Review of Systems Constitutional: Reports: diaphoresis (in the evening with chest pain). Denies: chills, fever. EENTM: Reports: no symptoms. Cardiovascular: Reports: chest pain. Denies: edema, palpitations, peripheral edema. Respiratory: Reports: cough, short of breath, wheezing. Denies: sputum production. Gastrointestinal: Denies: abdominal pain, changes in stool. Genitourinary: Reports: no symptoms. Musculoskeletal: Reports: no symptoms. Skin: Reports: no symptoms. Hematologic/Endocrine: Reports: no symptoms. Objective Last 24 Hrs of Vital Signs/I&O Vital Signs Date Time Temp Pulse Resp B/P Pulse O2 O2 Flow FiO2 Ox Delivery Rate 05/11 1826 98.0 72 18 118/70 95 05/11 1630 96 Nasal 2.0L Cannula 05/11 1616 98.0 60 20 122/60 95 Nasal 3.0L Cannula 05/11 0814 97.5 57 22 130/72 96 Nasal 2.0L Cannula 05/11 0803 98 Nasal 2.0L Cannula 05/11 0800 Nasal 3.0L Cannula 05/11 0623 97 Nasal 2.0L Cannula 05/11 0314 51 05/11 0006 53 88 05/11 0000 93 BIPAP 3.0L 05/11 0000 97.0 56 24 112/70 86 BIPAP 05/10 2229 60 98 05/10 2215 98.5 55 22 122/60 95 Nasal 2.0L Cannula 05/10 2013 65 22 122/60 96 Nasal 2.0L Cannula Intake & Output 05/11 1600 05/11 0800 05/11 0000 Intake Total 860 240 480 Output Total Balance 860 240 480 Intake, Oral 860 240 480 Physical Exam General Appearance: Alert, Oriented X3, Cooperative, No Acute Distress Skin: No Rashes, No Breakdown, No Significant Lesion HEENT: Atraumatic, PERRLA, EOMI, Mucous Membr. moist/pink Neck: Supple, No JVD Cardiovascular: Regular Rate, Normal S1, Normal S2, 1/6 systolic murmur at the left sternal border Lungs: wheezing and rhonchi bilaterally Abdomen: Normal Bowel Sounds, Soft, No Tenderness Neurological: Normal Speech, Strength at 5/5 X4 Ext, Normal Tone, Sensation Intact, Cranial Nerves 3-12 NL Extremities: No Clubbing, No Cyanosis, Normal Pulses, 1+ pitting edema Vascular: Normal Pulses, Pulses Symmetrical Current Medications: Current Medications Sig/Ralph Start time Last Medication Dose Route Stop Time Status Admin Acetaminophen 650 MG Q6P PRN 05/08 211 AC 05/10 PO 1314 Albuterol Sulfate 3 ML EVERY 4 HRS/AWAKE 05/09 1200 AC 05/11 INH 1121 Alprazolam 1 MG TID 05/080 AC 05/11 PO 05/15 2159 1831 Aripiprazole 20 MG AT BEDTIME 05/09 2200 AC 05/10 PO 2138 Aspirin Buffered 81 MG QAM 05/09 1000 AC 05/11 PO 0907 Atorvastatin Calcium 40 MG AT BEDTIME 05/09 2200 AC 05/10 PO 2138 Azithromycin 500 MG DAILY 05/11 1245 AC 05/11 PO 05/13 220 1832 Azithromycin 500 MG DAILY@2200 05/09 2200 AC 05/10 Dextrose/Water 250 ML IV 2141 Budesonide/ 2 PUF BID 05/08 2200 AC 05/11 Formoterol Fumarate INH 0916 Carbamazepine 400 MG BID 05/09 2200 AC 05/11 PO 0908 Colchicine 600 MCG DAILY 05/09 1000 AC 05/11 PO 0907 Enoxaparin Sodium 40 MG DAILY 05/09 1000 AC 05/11 SC 0908 Fenofibrate 145 MG DAILY 05/09 1000 AC 05/11 PO 0907 Fluticasone 2 SPRAY DAILY 05/09 1000 AC 05/11 Propionate TRUMAN 0909 Furosemide 30 MG DAILY 05/09 1000 AC 05/11 PO 0908 Gabapentin 600 MG BID 05/08 2200 AC 05/11 PO 0907 Insulin Aspart 0 TIDAC 05/09 0800 AC 05/11 SC 1234 Insulin Detemir 22 UNITS QPM 05/08 2200 AC 05/10 SC 2140 Levothyroxine Sodium 0.05 MG DAILY AC 05/09 0700 AC 05/11 PO 0539 Linaclotide 145 MCG DAILY 05/09 1000 AC 05/10 PO 0818 [place] Carbonate 300 MG TID 05/08 2199 AC 05/11 PO 1831 Methylprednisolone 40 MG BID 05/10 2200 DC 05/11 IV 0908 Nitroglycerin 0.4 MG ONCE ONE 05/11 1645 DC 05/11 SL 05/11 1646 1639 Nitroglycerin 0.4 MG DAILY 05/10 1334 AC 05/11 TOP 0908 Omeprazole 40 MG DAILY AC 05/09 0700 AC 05/11 PO 0539 Prednisone 50 MG DAILY 05/14 1000 AC PO 05/15 220 Prednisone 60 MG DAILY 05/12 1000 AC PO 05/13 220 Sertraline HCl 200 MG QAM 05/09 1000 AC 05/11 PO 0907 Last 24 Hrs of Lab/Matthieu Results Last 24 Hrs of Labs/Mics: Laboratory Tests 05/11/16 1625: Troponin I < 0.01 05/11/16 0650: Anion Gap 10, Estimated GFR > 60, BUN/Creatinine Ratio 21.7, Magnesium 2.1, CBC w Diff NO MAN DIFF REQ, RBC 4.03 L, MCV 91.6, MCH 30.6, RDW 13.2, MPV 9.5, Gran % 58.3, Lymphocytes % 32.3, Monocytes % 4.8, Eosinophils % 3.9, Basophils % 0.7, Absolute Granulocytes 3.3, Absolute Lymphocytes 1.8, Absolute Monocytes 0.3, Absolute Eosinophils 0.2, Absolute Basophils 0, PUBS MCHC 33.4 05/11/16 0154: Troponin I < 0.01 05/10/16 2000: Troponin I < 0.01 Assessment/Plan Assessment: She is a middle-aged woman with a past medical history of former smoker, COPD, obesity, obstructive sleep apnea, bipolar disorder is being evaluated for cough, fever likely from COPD exacerbation. Legionella and strep pneumo antigen negative 05/09/2016. Recent echocardiogram showed ejection fraction of above 65%, with small pericardial effusion. Patient developed SOB and lightheadedness yesterday afternoon, with 10/10 midsternal chest pain. Since she had a history of two cardiac catheterizations w / no clear history of coronary heart disease- cardiac etiology was in the differentials. Patient was transferred to [facility] for monitoring and to rule out ACS. Differential diagnosis: 1- COPD exacerbation 2- chest pain, rule out ACS Plan: 1- COPD exacerbation cough, fever-likely due to acute exacerbation of COPD. Patient has been started on azithromycin and will continue for 5 days. TRC nebs. Oxygen nasal cannula to keep oxygen saturation above 92%. Continue Symbicort twice daily. consulted pulmonary. DC'd IV Solu-Medrol and started prednisone 60 mg and will taper by 10 mg every 2 days. FU Lower respiratory cultures. 2- chest pain to rule out ACS serial troponin and EKG has been negative cardiology was also consulted. esophagogram ordered to rule out esophageal dysmotility, PPI is ordered Patient developed chest pain upon exertion at 4 pm today, ordered another set of troponin and EKG, will follow, pain was 7/10 midsternal and also on the left side, accompanied by cold sweats. We called the ofiice of patient's laboratory secretary for records, they will be faxed, will follow 3- diabetes-insulin sliding scale. Blood sugar in the range of 110-150s. 4- bipolar disorder-continue lithium. Problem List: 1. CHEST PAIN 2. COPD exacerbation Pain Ratin Pain Location: midsternum and left side of the chest Pain Goal: Pain 4 or less Pain Plan: SL Nitroglycerine Nitroglycerine patch Tomorrow's Labs & Rationales: CBC and BEP GRIFFIN MEYER MD 05/11/16 8573: Attending MD Review Statement Attending Statement Attending MD Statement: examined this patient, discuss w/resident/PA/[employer], agreed w/resident/PA/[employer], reviewed EMR data (avail), discussed with nursing, discussed with case mgmt, amended to note Attending Assessment/Plan: The patient was seen and discussed with house staff. Appreciate Cardiology/ Pulmonary input. The patient had some relief of CP by NTG. Agree with Dr. Landon that this may represent GERD and esophageal spasm. PPI (Omeprazole) started. Will observe response.
[2016-05-11 08:14] VITALS: BP 130/72
[2016-05-11 08:29] LABS: ABSOLUTE BASOPHIL COUNT 0 /CUMM (0.0-0.2); ABSOLUTE EOSINOPHIL COUNT 0.2 /CUMM (0.0-0.7); ABSOLUTE GRANULOCYTE CT 3.3 /CUMM (1.4-6.5); ABSOLUTE LYMPH COUNT 1.8 /CUMM (1.2-3.4); ABSOLUTE MONOCYTE COUNT 0.3 /CUMM (0.10-0.60); BASOPHIL % 0.7 % (0.0-2.0); EOSINOPHIL % 3.9 % (0-5); GRANULOCYTE % 58.3 % (42.2-75.2); HEMATOCRIT 36.8 % (37-47); MEAN CORPUSCULAR HGB 30.6 PG (27.0-31.0); MEAN CORPUSCULAR HGB CONC 33.4 G/DL (33.0-37.0); MEAN CORPUSCULAR VOLUME 91.6 FL (81.0-99.0); MEAN PLATELET VOLUME 9.5 FL (7.4-10.4); PLATELET COUNT 281 /CUMM (130-400); RBC DISTRIBUTION WIDTH 13.2 % (11.5-14.5); RED BLOOD CELL CT 4.03 /CUMM (4.20-5.40); WHITE BLOOD CELL COUNT 5.6 /CUMM (4.8-10.8)
--- NOTE | 2016-05-11 08:48 | PN- Pulmonary ---
Subjective HPI/Critical Care Issues: 50-year-old morbidly obese former smoker woman ith h/o pericarditis with effusion, COPD on 2L nocturnal O2, SHIRIN on CPAP, HTN, HLD admitted for hypoxic respiratory failure due to COPD exacerbation. She was transferred to telemetry needed development of chest pain (pleuritic, nonreproducible not improving with morphine and nitrates last more than a few hours, without palpitation, lightheadedness, dizziness, sweating, nausea vomiting) and on specific ST, T segment changes on EKG. D-dimer was checked and it was negative. Subsequent troponin and EKGs were negative. Telemetry was reviewed: Patient in normal sinus rate and rhythm. No events overnight. Vital signs are stable. Patient was visited and interviewed this morning. Shortness of breath improved patient is on 2 L of oxygen nasal cannula nocturnal BiPAP. Complains of left- sided chest pain 6 or 7 out of 10. Denies any nausea vomiting lightheadedness dizziness. List of problems #1 you hypoxic respiratory failure in setting of COPD and obstructive sleep apnea most possibly due to COPD exacerbation #2 atypical chest in in a white obese, former smoker woman with hypertension and hyperlipidemia Plan 1. Hypoxic respiratory failure patient with COPD and obstructive sleep apnea was possibly due to COPD exacerbation. * IV Solu-Medrol- stop * prednisone 60 mg by mouth daily * TRC nebulizer on; As needed * Continue home inhalers * Continue azithromycin for 5 days #2 atypical chest pain without EKG changes in a high-risk patient and symptomatic bradycardia. Patient might benefit from outpatient stress test. Repeat echo was normal, detected hemodynamically insignificant small pericardial effusion (table compared to previous studies). D-dimer was negative. * Manage per cardiology and medical team. #3 hypertension and hyperlipidemia and diabetes: Manage her medical team #4 bipolar disorder-stable; and as per medical team DVT prophylaxis Lovenox DNR/DNI Objective Current Medications: Current Medications Sig/Ralph Start time Last Medication Dose Route Stop Time Status Admin Acetaminophen 650 MG .STK-MED ONE 05/10 1310 DC PO 05/10 1311 Acetaminophen 650 MG Q6P PRN 05/08 2115 AC 05/10 PO 1314 Albuterol Sulfate 3 ML EVERY 4 HRS/AWAKE 05/09 1200 AC 05/11 INH 0801 Alprazolam 1 MG TID 05/08 2200 AC 05/10 PO 05/159 2138 Aripiprazole 20 MG AT BEDTIME 05/09 2199 AC 05/10 PO 2138 Aspirin 325 MG ONCE ONE 05/10 1345 DC 05/10 PO 05/10 1346 1343 Aspirin Buffered 81 MG QAM 05/09 1000 AC 05/10 PO 0817 Atorvastatin Calcium 40 MG AT BEDTIME 05/09 2200 AC 05/10 PO 2138 Azithromycin 500 MG DAILY@2200 05/09 2200 AC 05/10 Dextrose/Water 250 ML IV 2141 Budesonide/ 2 PUF BID 05/08 2199 AC 05/10 Formoterol Fumarate INH 2141 Carbamazepine 400 MG BID 05/09 2200 AC 05/10 PO 2139 Colchicine 600 MCG DAILY 05/09 1000 AC 05/10 PO 0818 Enoxaparin Sodium 40 MG DAILY 05/09 1000 AC 05/10 SC 0817 Fenofibrate 145 MG DAILY 05/09 1000 AC 05/10 PO 0816 Fluticasone 2 SPRAY DAILY 05/09 1000 AC 05/10 Propionate TRUMAN 0819 Furosemide 30 MG DAILY 05/09 1000 AC 05/10 PO 0817 Gabapentin 600 MG BID 05/08 2200 AC 05/10 PO 2138 Insulin Aspart 0 TIDAC 05/09 0800 AC 05/09 SC 1711 Insulin Detemir 22 UNITS QPM 05/08 2200 AC 05/10 SC 2140 Levothyroxine Sodium 0.05 MG DAILY AC 05/09 0700 AC 05/11 PO 0539 Linaclotide 145 MCG DAILY 05/09 1000 AC 05/10 PO 0818 [place] Carbonate 300 MG TID 05/08 2200 AC 05/10 PO 2138 Methylprednisolone 40 MG BID 05/10 2200 AC 05/10 IV 2141 Morphine Sulfate 2 MG ONCE ONE 05/10 1330 DC 05/10 IV 05/10 1331 1339 Nitroglycerin 0.4 MG DAILY 05/10 1334 AC 05/10 TOP 1339 Nitroglycerin 1 GM .STK-MED ONE 05/10 1330 DC TOP 05/10 1331 Omeprazole 40 MG DAILY AC 05/09 0700 AC 05/11 PO 0539 Sertraline HCl 200 MG QAM 05/09 1000 AC 05/10 PO 0816 Vital Signs & I&O Last 24 Hrs of Vitals and I&O: Vital Signs Date Time Temp Pulse Resp B/P Pulse O2 O2 Flow FiO2 Ox Delivery Rate 05/11 0814 97.5 57 22 130/72 96 Nasal 2.0L Cannula 05/11 0803 98 Nasal 2.0L Cannula 05/11 0623 97 Nasal 2.0L Cannula 05/11 0314 51 05/11 0006 53 88 05/11 0000 93 BIPAP 3.0L 05/11 0000 97.0 56 24 112/70 86 BIPAP 05/10 2229 60 98 05/10 2215 98.5 55 22 122/60 95 Nasal 2.0L Cannula 05/10 2012 65 22 122/60 96 Nasal 2.0L Cannula 05/10 1646 98.1 58 18 110/64 95 Nasal 2.0L Cannula 05/10 1635 95 Nasal 2.0L Cannula 05/10 1600 Nasal 2.0L Cannula 05/10 1447 98.0 63 18 110/50 95 Nasal 2.0L Cannula Intake & Output 05/11 1600 05/11 0800 05/11 0000 Intake Total 240 480 Output Total Balance 240 480 Intake, Oral 240 480 Exam General Appearance: well developed/nourished, alert, awake, mild distress, obese Head: atraumatic Ears, Nose, Throat: normal pharynx Neck: normal inspection Cardiovascular: regular rate/rhythm, no murmur, no peripheral edema Abdomen: obese, soft, non-tender Extremities: normal inspection Results Last 24 Hrs of Lab Results: Laboratory Tests 05/11/16 0650: Anion Gap 10, Estimated GFR > 60, BUN/Creatinine Ratio 21.7, CBC w Diff NO MAN DIFF REQ, RBC 4.03 L, MCV 91.6, MCH 30.6, RDW 13.2, MPV 9.5, Gran % 58.3, Lymphocytes % 32.3, Monocytes % 4.8, Eosinophils % 3.9, Basophils % 0.7, Absolute Granulocytes 3.3, Absolute Lymphocytes 1.8, Absolute Monocytes 0.3, Absolute Eosinophils 0.2, Absolute Basophils 0, PUBS MCHC 33.4 05/11/16 0154: Troponin I < 0.01 05/10/16 2000: Troponin I < 0.01 05/10/16 1730: D-Dimer < 200 05/10/16 1300: Anion Gap 11, Estimated GFR > 60, BUN/Creatinine Ratio 26.7 H, Troponin I < 0.01 Impression/Plan Impression/Plan Impression/Plan: Assessment and plan #1 COPD exacerbation: Increased phlegm production and cough with one despite of high-grade fever. No radiology, laboratory evidence of pneumonia, in the setting my line of thinking is more towards acute viral bronchitis. * Watch off antibiotics if patient spikes fever send blood cultures * Solu-Medrol 40 mg every 8 * Albuterol INH 3 mL every 4 * * TRC/nebs [id number] as needed * Keep on O2 nasal cannula with target O2 saturation above 92% * Follow sputum cx * Follow urine streptococcal and Legionella antigen results * DC IV fluids #2 history of minimal pericardial effusion detected on echo February * Obtain new echo to assess the pericardial effusion #
--- NOTE | 2016-05-11 10:44 | PN- Pulmonary ---
Subjective HPI/Critical Care Issues: Patient seen and examined. She was transferred to telemetry for bradycardia and some chest discomfort that has now subsided. Overall breathing has improved. Objective Current Medications: Current Medications Sig/Ralph Start time Last Medication Dose Route Stop Time Status Admin Acetaminophen 650 MG .STK-MED ONE 05/10 1310 DC PO 05/10 1311 Acetaminophen 650 MG Q6P PRN 05/08 2115 AC 05/10 PO 1314 Albuterol Sulfate 3 ML EVERY 4 HRS/AWAKE 05/09 1200 AC 05/11 INH 0801 Alprazolam 1 MG TID 05/08 2199 AC 05/11 PO 05/15 2159 0911 Aripiprazole 20 MG AT BEDTIME 05/09 2200 AC 05/10 PO 2138 Aspirin 325 MG ONCE ONE 05/10 1345 DC 05/10 PO 05/10 1346 1343 Aspirin Buffered 81 MG QAM 05/09 1000 AC 05/11 PO 0907 Atorvastatin Calcium 40 MG AT BEDTIME 05/09 2200 AC 05/10 PO 2138 Azithromycin 500 MG DAILY@0 05/09 2200 AC 05/10 Dextrose/Water 250 ML IV 2141 Budesonide/ 2 PUF BID 05/08 2199 AC 05/11 Formoterol Fumarate INH 0916 Carbamazepine 400 MG BID 05/09 2200 AC 05/11 PO 0908 Colchicine 600 MCG DAILY 05/09 1000 AC 05/11 PO 0907 Enoxaparin Sodium 40 MG DAILY 05/09 1000 AC 05/11 SC 0908 Fenofibrate 145 MG DAILY 05/09 1000 AC 05/11 PO 0907 Fluticasone 2 SPRAY DAILY 05/09 1000 AC 05/11 Propionate TRUMAN 0909 Furosemide 30 MG DAILY 05/09 1000 AC 05/11 PO 0908 Gabapentin 600 MG BID 05/08 2200 AC 05/11 PO 0907 Insulin Aspart 0 TIDAC 05/09 0800 AC 05/09 SC 1711 Insulin Detemir 22 UNITS QPM 05/08 2199 AC 05/10 SC 2140 Levothyroxine Sodium 0.05 MG DAILY AC 05/09 0700 AC 05/11 PO 0539 Linaclotide 145 MCG DAILY 05/09 1000 AC 05/10 PO 0818 [place] Carbonate 300 MG TID 05/08 2200 AC 05/11 PO 0908 Methylprednisolone 40 MG BID 05/10 2200 AC 05/11 IV 0908 Morphine Sulfate 2 MG ONCE ONE 05/10 1330 DC 05/10 IV 05/10 1331 1339 Nitroglycerin 0.4 MG DAILY 05/10 1334 05/11 TOP 0908 Nitroglycerin 1 GM .STK-MED ONE 05/10 1330 DC [facility] 05/10 1331 Omeprazole 40 MG DAILY AC 05/09 0700 AC 05/11 PO 0539 Sertraline HCl 200 MG QAM 05/09 1000 AC 05/11 PO 0907 Vital Signs & I&O Last 24 Hrs of Vitals and I&O: Vital Signs Date Time Temp Pulse Resp B/P Pulse O2 O2 Flow FiO2 Ox Delivery Rate 05/11 0814 97.5 57 22 130/72 96 Nasal 2.0L Cannula 05/11 0803 98 Nasal 2.0L Cannula 05/11 0800 Nasal 3.0L Cannula 05/11 0623 97 Nasal 2.0L Cannula 05/11 0314 51 05/11 0006 53 88 05/11 0000 93 BIPAP 3.0L 05/11 0000 97.0 56 24 112/70 86 BIPAP 05/10 2229 60 98 05/10 2215 98.5 55 22 122/60 95 Nasal 2.0L Cannula 05/10 2013 65 22 122/60 96 Nasal 2.0L Cannula 05/10 1646 98.1 58 18 110/64 95 Nasal 2.0L Cannula 05/10 1635 95 Nasal 2.0L Cannula 05/10 1600 Nasal 2.0L Cannula 05/10 1447 98.0 63 18 110/50 95 Nasal 2.0L Cannula Intake & Output 05/11 1600 05/11 0800 05/11 0000 Intake Total 240 480 Output Total Balance 240 480 Intake, Oral 240 480 Exam Other Physical Findings: gen awake and alert heent ncat cvs s1, s2 lungs rare rhonchi abd obese ext trace edema Results Last 24 Hrs of Lab Results: Laboratory Tests 05/11/16 0650: Anion Gap 10, Estimated GFR > 60, BUN/Creatinine Ratio 21.7, CBC w Diff NO MAN DIFF REQ, RBC 4.03 L, MCV 91.6, MCH 30.6, RDW 13.2, MPV 9.5, Gran % 58.3, Lymphocytes % 32.3, Monocytes % 4.8, Eosinophils % 3.9, Basophils % 0.7, Absolute Granulocytes 3.3, Absolute Lymphocytes 1.8, Absolute Monocytes 0.3, Absolute Eosinophils 0.2, Absolute Basophils 0, PUBS MCHC 33.4 05/11/16 0154: Troponin I < 0.01 05/10/16 2000: Troponin I < 0.01 05/10/16 1730: D-Dimer < 200 05/10/16 1300: Anion Gap 11, Estimated GFR > 60, BUN/Creatinine Ratio 26.7 H, Troponin I < 0.01 Impression/Plan Impression/Plan Impression/Plan: Impression 50-year-old woman with a history of COPD and obstructive sleep apnea with an exacerbation of COPD likely secondary to viral bronchitis. Bradycardia/chest discomfort subsided. Plan -DC Solu-Medrol -Begin prednisone 60 mg and taper by 10 mg every 2 days -cardiology follow up -TRC and nebs -Continue home inhalers -Five-day course of Zithromax is appropriate -DVT prophylaxis at all times physical therapy, out of bed
--- NOTE | 2016-05-11 12:43 | Cons- Cardiology ---
General Information and HPI Consulting Request Date of Consult: 05/11/16 Requested By: GRIFFIN MEYER MD Reason for Consult: Chest pain Source of Information: patient, old records History of Present Illness: The patient is a 50-year-old female with an extended past medical history. She has known hypertension, sleep apnea, chronic lung disease, hyperlipidemia, diabetes, migraine headaches, bipolar disorder, etc. She also has a history of prior chest pain syndrome and has had 2 cardiac catheterizations in the past. The patient notes that the last cardiac cath was 2009. Her usual o and m supervisor is Dr. Baker in [place]. Apparently she was also recently evaluated for syncope and had a Linq monitor implanted at that time. Any was ultimately monitor are not available at the present time. The patient is now admitted to the hospital with upper respiratory symptoms, fever, and probable exacerbation of COPD. Yesterday, the patient developed severe chest pain and was transferred to telemetry monitoring for further evaluation. Since arriving on telemetry, the patient has continued to have waxing and waning chest discomfort. She describes this as non-positional, non- pleuritic, left-sided chest pressure which waxes and wanes throughout the day but is never completely gone. Her ECGs have been fluctuating with anterior ST-T wave changes noted. Her troponins have thus far been negative. -Today, the patient continues to have/10 chest discomfort. T Allergies/Medications Allergies: Coded Allergies: codeine (Severe, ITCH 08/09/15) lemon (Severe, SOB 08/09/15) propranolol (Severe, SHOCK PER PT 08/09/15) Home Med List: Albuterol Sulfate (Proair Hfa) 8.5 GM HFA.AER.AD 1-2 PUF INH Q4-6 PRN PRN COPD (Reported) Alprazolam (Xanax) 1 MG TABLET 1 TAB PO TID ANXIETY (Reported) Aripiprazole (Abilify) 20 MG TABLET 1 TAB PO QHS MENTAL HEALTH (Reported) Aspirin (Ecotrin*) 81 MG TABLET.DR 1 TAB PO QAM HEART/BLOOD (Reported) Atorvastatin Calcium (Lipitor) 40 MG TABLET 1 TAB PO QHS CHOLESTEROL ( Reported) Azithromycin (Zithromax) 500 MG TABLET 1 TAB PO DAILY copd Budesonide/Formoterol Fumarate (Symbicort 160-4.5 Mcg Inhaler) 10.2 GM HFA.AER.AD 2 PUF INH BID COPD (Reported) Carbamazepine (Carbamazepine XR) 400 MG TAB.ER.12H 1 TAB PO BID TRIGEMINAL NEURALGIA (Reported) Colchicine 0.6 MG TABLET 1 TAB PO DAILY PERICARDITIS (Reported) Ergocalciferol (Vitamin D2) (Vitamin D2) 50,000 UNIT CAPSULE 1 CAP PO QTHURS SUPPLEMENT (Reported) Fenofibrate Nanocrystallized (Fenofibrate) 145 MG TABLET 1 TAB PO DAILY CHOLESTEROL/TRIGLYCERIDES (Reported) Fluticasone Propionate 16 GM SPRAY.SUSP 2 SPRAY NASB DAILY ALLERGIES ( Reported) Folic Acid 1 MG TABLET 1 TAB PO QAM SUPPLEMENT (Reported) Furosemide 20 MG TABLET 1.5 TAB PO DAILY FLUID (Reported) Gabapentin 600 MG TABLET 1 TAB PO BID NEUROPATHY (Reported) Ibuprofen 600 MG TABLET 1 TAB PO 4XDP PRN PAIN (Reported) Insulin Glargine,Hum.rec.anlog (Lantus Solostar) 100 UNIT/ML (3 ML) INSULN.PEN 22 UNIT SC QPM DM (Reported) Levothyroxine Sodium 50 MCG TABLET 1 TAB PO DAILY AC THYROID (Reported) Linaclotide (Linzess) 145 MCG CAPSULE 1 CAP PO QAM CIC (Reported) [place] Carbonate 300 MG CAPSULE 1 CAP PO TID DEPRESSION (Reported) Metformin HCl 1,000 MG TABLET 1 TAB PO BID DIABETES (Reported) Pantoprazole Sodium (Protonix) 40 MG TABLET.DR 1 TAB PO DAILY GERD (Reported) Prednisone 10 MG TABLET 1 TAB PO DAILY copd please take 4 tabs(40mg) on 05/12 3 tabs(30mg) on 05/13,05/14 2 tabs(20mg) on 05/15,05/16 1 tab (10mg) on 05/17,05/18. Sertraline HCl 100 MG TABLET 2 TAB PO QAM MENTAL HEALTH (Reported) Current Medications: Current Medications Sig/Ralph Start time Last Medication Dose Route Stop Time Status Admin Acetaminophen 650 MG .STK-MED ONE 05/10 1310 DC PO 05/10 1311 Acetaminophen 650 MG Q6P PRN 05/08 2115 AC 05/10 PO 1314 Albuterol Sulfate 3 ML EVERY 4 HRS/AWAKE 05/09 1200 AC 05/11 INH 1121 Alprazolam 1 MG TID 05/080 AC 05/11 PO 05/15 2159 0911 Aripiprazole 20 MG AT BEDTIME 05/09 2200 AC 05/10 PO 2138 Aspirin 325 MG ONCE ONE 05/10 1345 DC 05/10 PO 05/10 1346 1343 Aspirin Buffered 81 MG QAM 05/09 1000 AC 05/11 PO 0907 Atorvastatin Calcium 40 MG AT BEDTIME 05/09 2200 AC 05/10 PO 2138 Azithromycin 500 MG DAILY 05/11 1245 AC PO 05/13 2200 Azithromycin 500 MG DAILY@2200 05/09 2200 AC 05/10 Dextrose/Water 250 ML IV 2141 Budesonide/ 2 PUF BID 05/08 2200 AC 05/11 Formoterol Fumarate INH 0916 Carbamazepine 400 MG BID 05/09 2200 AC 05/11 PO 0908 Colchicine 600 MCG DAILY 05/09 1000 AC 05/11 PO 0907 Enoxaparin Sodium 40 MG DAILY 05/09 1000 AC 05/11 SC 0908 Fenofibrate 145 MG DAILY 05/09 1000 AC 05/11 PO 0907 Fluticasone 2 SPRAY DAILY 05/09 1000 AC 05/11 Propionate TRUMAN 0909 Furosemide 30 MG DAILY 05/09 1000 AC 05/11 PO 0908 Gabapentin 600 MG BID 05/08 2200 AC 05/11 PO 0907 Insulin Aspart 0 TIDAC 05/09 0800 AC 05/11 SC 1234 Insulin Detemir 22 UNITS QPM 05/08 2200 AC 05/10 SC 2140 Levothyroxine Sodium 0.05 MG DAILY AC 05/09 0700 AC 05/11 PO 0539 Linaclotide 145 MCG DAILY 05/09 1000 AC 05/10 PO 0818 [place] Carbonate 300 MG TID 05/08 2200 AC 05/11 PO 0908 Methylprednisolone 40 MG BID 05/10 2200 DC 05/11 IV 0908 Morphine Sulfate 2 MG ONCE ONE 05/10 1330 DC 05/10 IV 05/10 1331 1339 Nitroglycerin 0.4 MG DAILY 05/10 1334 AC 05/11 TOP 0908 Nitroglycerin 1 GM .STK-MED ONE 05/10 1330 DC TOP 05/10 1331 Omeprazole 40 MG DAILY AC 05/09 0700 AC 05/11 PO 0539 Prednisone 50 MG DAILY 05/14 1000 AC PO 05/15 2200 Prednisone 60 MG DAILY 05/12 1000 AC PO 05/13 2200 Sertraline HCl 200 MG QAM 05/09 1000 AC 05/11 PO 0907 Past History Travel History Traveled to [place] past 21 day No Medical History Blood Transfusion Hx: No Neurological: dizziness, peripheral neuropathy, TIA, TRIGEMINAL NEURALGIA NEUROPATHY EENT: NONE Cardiovascular: hyperlipidemia, HIGH TRYGLCERIDES recent cardiac catheterizations were negative for occlusive coronary artery disease PERICARDITIS Respiratory: bronchitis, obstructive sleep apnea, pneumonia, BIPAP Gastrointestinal: ACID REFLUX CONSTIPAT- CHRONIC/IDEOPA ABDOMINAL HERNIA Hepatic: CHOLELITHIASIS CHOLECYSTECTOMY Renal: NONE Musculoskeletal: R ANKLE FX AND REPAIR Psychiatric: anxiety, bipolar disease, depression Endocrine: diabetes, HYPOTHYROIDISM Blood Disorders: NONE Cancer(s): ovarian cancer, SARCOMA L LEG PUBLIC RELATIONS PROFESSIONAL/Reproductive: OVARIAN CA TOTAL HYSTERECTOMY Surgical History Surgical History: ABD HERNIA REPAIR X4 HYSTERECTOMY CHOLECYSTECTOMY R ANKLE SX POST FX SARCOMA REMOVAL L LEG Family History Relations & Conditions If Any: MOTHER Relation not specified for: *No pertinent family history FH: diabetes mellitus Psychosocial History Where Do You Live? Home Services at Home: None Smoking Status: Former Smoker Functional Ability ADLs Independent: dressing, eating, toileting, bathing. Ambulation: independent IADLs Independent: shopping, housework, finances, food prep, telephone, transportation , medication admin. ECHO Results (as available) Report: Normal left ventricular l size and contractility with moderate left ventricular hypertrophy. No significant valvular abnormalities. Exam & Diagnostic Data Vital Signs and I&O Vital Signs Date Time Temp Pulse Resp B/P Pulse O2 O2 Flow FiO2 Ox Delivery Rate 05/11 0814 97.5 57 22 130/72 96 Nasal 2.0L Cannula 05/11 0803 98 Nasal 2.0L Cannula 05/11 0800 Nasal 3.0L Cannula 05/11 0623 97 Nasal 2.0L Cannula 05/11 0314 51 05/11 0006 53 88 05/11 0000 93 BIPAP 3.0L 05/11 0000 97.0 56 24 112/70 86 BIPAP 05/10 2229 60 98 05/10 2215 98.5 55 22 122/60 95 Nasal 2.0L Cannula 05/10 2013 65 22 122/60 96 Nasal 2.0L Cannula 05/10 1646 98.1 58 18 110/64 95 Nasal 2.0L Cannula 05/10 1635 95 Nasal 2.0L Cannula 05/10 1600 Nasal 2.0L Cannula 05/10 1447 98.0 63 18 110/50 95 Nasal 2.0L Cannula Intake & Output 05/11 1600 05/11 0800 05/11 0000 05/10 1600 05/10 0800 05/10 0000 Intake Total 240 056 740 2661 Output Total 950 450 Balance 240 480 -100 600 Intake, IV 250 Intake, Oral 240 480 850 800 Output, Urine 950 450 Physical Exam: General Exam: AAOx3, No acute distress, Skin: No rashes, no breakdown HEENT: Normal Neck: Supple, JVP normal, carotid up stroke is normal bilaterally with no bruits CVS: Reg Rate, Normal S1,S2, distant heart sounds, 1/6 systolic murmur left sternal border Resp: Normal air entry, bilateral ronchi Abdomen: Soft, No tenderness, Normal Bowel Sounds Neuro: Nonfocal Extremities: No cyanosis, pedal edema Labs/Matthieu Results: Laboratory Tests 05/11 05/11 05/10 05/10 0650 0154 2000 1730 Chemistry Sodium (137 - 145 mmol/L) 143 Potassium (3.5 - 5.1 mmol/L) 4.1 Chloride (98 - 107 mmol/L) 104 Carbon Dioxide (22 - 30 mmol/L) 29 Anion Gap (5 - 16) 10 BUN (7 - 17 mg/dL) 13 Creatinine (0.5 - 1.0 mg/dL) 0.6 Estimated GFR (>60 ml/min) > 60 BUN/Creatinine Ratio (7 - 25 %) 21.7 Troponin I (< 0.11 ng/ml) < 0.01 < 0.01 Coagulation D-Dimer (70 - 232 ng/ml) < 200 Hematology CBC w Diff NO MAN DIFF REQ WBC (4.8 - 10.8 /CUMM) 5.6 RBC (4.20 - 5.40 /CUMM) 4.03 L Hgb (12.0 - 16.0 G/DL) 12.3 Hct (37 - 47 %) 36.8 L MCV (81.0 - 99.0 FL) 91.6 MCH (27.0 - 31.0 PG) 30.6 RDW (11.5 - 14.5 %) 13.2 Plt Count (130 - 400 /CUMM) 281 MPV (7.4 - 10.4 FL) 9.5 Gran % (42.2 - 75.2 %) 58.3 Lymphocytes % (20.5 - 51.1 %) 32.3 Monocytes % (1.7 - 9.3 %) 4.8 Eosinophils % (0 - 5 %) 3.9 Basophils % (0.0 - 2.0 %) 0.7 Absolute Granulocytes (1.4 - 6.5 /CUMM) 3.3 Absolute Lymphocytes (1.2 - 3.4 /CUMM) 1.8 Absolute Monocytes (0.10 - 0.60 /CUMM) 0.3 Absolute Eosinophils (0.0 - 0.7 /CUMM) 0.2 Absolute Basophils (0.0 - 0.2 /CUMM) 0 PUBS MCHC (33.0 - 37.0 G/DL) 33.4 05/10 05/10 1300 0755 Chemistry Sodium (137 - 145 mmol/L) 143 Potassium (3.5 - 5.1 mmol/L) 3.8 Chloride (98 - 107 mmol/L) 106 Carbon Dioxide (22 - 30 mmol/L) 27 Anion Gap (5 - 16) 11 BUN (7 - 17 mg/dL) 16 Creatinine (0.5 - 1.0 mg/dL) 0.6 Estimated GFR (>60 ml/min) > 60 BUN/Creatinine Ratio (7 - 25 %) 26.7 H Troponin I (< 0.11 ng/ml) < 0.01 Hematology CBC w Diff NO MAN DIFF REQ WBC (4.8 - 10.8 /CUMM) 7.7 RBC (4.20 - 5.40 /CUMM) 4.14 L Hgb (12.0 - 16.0 G/DL) 12.6 Hct (37 - 47 %) 37.9 MCV (81.0 - 99.0 FL) 91.6 MCH (27.0 - 31.0 PG) 30.4 RDW (11.5 - 14.5 %) 13.3 Plt Count (130 - 400 /CUMM) 268 MPV (7.4 - 10.4 FL) 9.5 Gran % (42.2 - 75.2 %) 64.6 Lymphocytes % (20.5 - 51.1 %) 27.2 Monocytes % (1.7 - 9.3 %) 4.5 Eosinophils % (0 - 5 %) 3.4 Basophils % (0.0 - 2.0 %) 0.3 Absolute Granulocytes (1.4 - 6.5 /CUMM) 5.0 Absolute Lymphocytes (1.2 - 3.4 /CUMM) 2.1 Absolute Monocytes (0.10 - 0.60 /CUMM) 0.3 Absolute Eosinophils (0.0 - 0.7 /CUMM) 0.3 Absolute Basophils (0.0 - 0.2 /CUMM) 0 PUBS MCHC (33.0 - 37.0 G/DL) 33.2 Diagnostic Data EKG Results Normal sinus rhythm with diffuse anterior ST depression, ST T changes fluctuating from ECG to ECG. CXR Results FINDINGS: A loop recorder projects over the left cardiac border. Lungs are well-expanded. There is no focal consolidative disease, pleural effusion, or pneumothorax. The cardiac silhouette and upper mediastinal contours are normal. No acute osseous finding. IMPRESSION: No acute finding. Specifically no consolidative disease or effusion. Other Results Echo cardiac exam: CONCLUSIONS Normal left ventricular ejection fraction visually estimated at > 60%. Mild concentric left ventricular hypertrophy. Trace tricuspid regurgitation. No evidence of pulmonary hypertension. Small pericardial effusion. No echocardiographic findings to suggest a hemodynamically significant pericardial effusion. Assessment/Plan Assessment/Plan Assessment: 1. Chest pain syndrome-the patient has left-sided chest discomfort which waxes and wanes during the day. There appears to be some responsiveness of the symptoms to nitroglycerin. She has had an extensive prior cardiac evaluation per the patient which includes 2 cardiac catheterizations that showed normal coronaries. The last catheterization was in 2009 per the patient. Old records not yet available. At the moment, although the symptoms do not seem to be cardiac in nature, she does have fluctuating anterior ST segment abnormalities. These ECG changes might be related to underlying ischemia, however, the possibility of right heart strain related to his underlying pulmonary issues cannot be excluded. In addition, the patient is a small pericardial effusion on her echocardiogram. However, the symptoms, quality-carey, do not seem consistent with pericarditis. 2. Probable exacerbation of COPD 3. History of prior syncope 4. Potential 5. History of hyperlipidemia and right 6. Sleep apnea Recommendations: -So far, troponins have been negative. -Please check ECG with any chest discomfort -Please try subLINgual nitroglycerin 0.4 mg times one to see the effect on the patient's chest pain. -Otherwise continue current therapy -Please obtain copies of all outside cardiology records for review including prior cardiac catheterization. -Please keep the patient on the equipment monitor phototypesetting for now, pending review of the patient's outside records. -In view of the patient's history of reflux disease, consider eventual esophagram to rule out dysmotility disorder, esophageal spasm, etc. Consult Acknowledgment - Thank you for your consult request.
--- NOTE | 2016-05-11 16:09 | RADIOLOGY REPORT ---
EXAMINATION: FLUOROSCOPY ESOPHAGRAM WITH AIR CLINICAL INFORMATION: Chest pain and reflux. Rule out dysmotility disorder. COMPARISON: A scan of the chest dated 03/10/2016. TECHNIQUE: An air contrast barium swallow was performed with the patient in the upright and supine positions. Multiple spot films were acquired. FINDINGS: The oropharyngeal phase of swallowing is normal with no laryngeal or nasopharyngeal aspiration seen. Vallecula and piriform sinuses bilaterally are symmetric and no significant pooling of contrast is seen. Esophageal distensibility and motility is normal. The GE junction is located below the level of the diaphragm. Mild GE reflux into the distal esophagus is seen. No esophagitis or stricture formation is seen. FLUOROSCOPY TIME: 57 seconds. IMPRESSION: 1. Mild gastroesophageal reflux into the distal esophagus. 2. Otherwise unremarkable exam. No evidence of esophageal dysmotility.
[2016-05-11 16:16] VITALS: BP 122/60
[2016-05-11 18:26] VITALS: BP 118/70
[2016-05-11 23:07] VITALS: BP 130/50
--- NOTE | 2016-05-12 00:44 | NUR ---
ON 05/11/16 AT APPROX 1615 PT COMPLAINED OF 7/10 CHEST PAIN QITH RADIATION TO BACK AND NECK. FINISHING RANGE SUPERVISOR MARYUM MADE AWARE. VITAL SIGNS AT THAT TIME WERE 122/60, HR 60, TEMP 98.0, O2 SAT 95% ON 3L NC, RESP 20. EKG AND TROP ORDERED. SUB LINGUAL NITRO GIVEN ORDERED WITH GOOD EFFECT PER PT REPORT. NO FURTHER COMPLAINTS TO THIS RN FOR REST OF SHIFT.
--- NOTE | 2016-05-12 07:55 | PN- Housestaff ---
ADITYA ZUNIGA,[facility] 05/12/16 0755: Subjective Follow-up For: COPD exacerbation Tele-Events Since Last Visit: Sinus rhythm, and his bradycardia, heart rate between 49-70 Subjective: Continue examined this morning. She was lying in bed in mild distress, she wasn 't able to sleep well at night, did not use her BiPAP because it was bothering her, remained short of breath, endorses cough, otherwise afebrile, vitals remain within normal limits. Review of Systems Constitutional: Reports: see HPI. Objective Last 24 Hrs of Vital Signs/I&O Vital Signs Date Time Temp Pulse Resp B/P Pulse O2 O2 Flow FiO2 Ox Delivery Rate 05/12 0947 92 Room Air 05/12 0844 98.5 62 20 146/76 91 Nasal 3.0L Cannula 05/12 0005 55 95 05/12 0000 94 CPAP 05/11 2307 97.8 57 20 130/50 92 Room Air 05/11 2226 58 96 05/11 1826 98.0 72 18 118/70 95 05/11 1630 96 Nasal 2.0L Cannula 05/11 1616 98.0 60 20 122/60 95 Nasal 3.0L Cannula 05/11 1600 Nasal 3.0L Cannula Intake & Output 05/12 1600 05/12 0800 05/12 0000 Intake Total 600 Output Total Balance 600 Intake, Oral 600 Physical Exam General Appearance: Alert, Oriented X3, Cooperative, Mild Distress Cardiovascular: Regular Rate, Normal S1, Normal S2 Lungs: bilateral wheezing andcoarse breath sounds. Abdomen: Normal Bowel Sounds, Soft, No Tenderness Extremities: No Clubbing, No Cyanosis, No Edema Current Medications: Current Medications Sig/Ralph Start time Last Medication Dose Route Stop Time Status Admin Acetaminophen 650 MG Q6P PRN 05/08 2115 AC 05/10 PO 1314 Albuterol Sulfate 3 ML EVERY 4 HRS/AWAKE 05/09 1200 AC 05/12 INH 0946 Alprazolam 1 MG TID 05/08 2199 AC 05/11 PO 05/15 2158 220 Aripiprazole 20 MG AT BEDTIME 05/09 2199 AC 05/11 PO 220 Aspirin Buffered 81 MG QAM 05/09 1000 AC 05/11 PO 0907 Atorvastatin Calcium 40 MG AT BEDTIME 05/09 2199 AC 05/11 PO 220 Azithromycin 500 MG DAILY 05/11 1245 AC 05/11 PO 05/13 2199 1832 Azithromycin 500 MG DAILY@2200 05/09 2199 DC 05/10 Dextrose/Water 250 ML IV 2141 Budesonide/ 2 PUF BID 05/08 2199 AC 05/11 Formoterol Fumarate INH 4 Carbamazepine 400 MG BID 05/09 2200 AC 05/11 PO 2203 Colchicine 600 MCG DAILY 05/09 1000 AC 05/11 PO 0907 Enoxaparin Sodium 40 MG DAILY 05/09 1000 AC 05/11 SC 0908 Fenofibrate 145 MG DAILY 05/09 1000 AC 05/11 PO 0907 Fluticasone 2 SPRAY DAILY 05/09 1000 AC 05/11 Propionate TRUMAN 0909 Furosemide 30 MG DAILY 05/09 1000 AC 05/11 PO 0908 Gabapentin 600 MG BID 05/08 2199 AC 05/11 PO 220 Insulin Aspart 0 TIDAC 05/09 0800 AC 05/11 SC 1234 Insulin Detemir 22 UNITS QPM 05/08 2199 AC 05/11 SC 2203 Levothyroxine Sodium 0.05 MG DAILY AC 05/09 0700 AC 05/12 PO 0706 Linaclotide 145 MCG DAILY 05/09 1000 AC 05/10 PO 0818 [place] Carbonate 300 MG TID 05/08 2199 AC 05/11 PO 2202 Methylprednisolone 40 MG BID 05/12 2199 AC IV Methylprednisolone 40 MG BID 05/10 2199 DC 05/11 IV 0908 Nitroglycerin 0.4 MG ONCE ONE 05/11 1645 DC 05/11 SL 05/11 1646 1639 Nitroglycerin 0.4 MG DAILY 05/10 1334 AC 05/11 TOP 0908 Omeprazole 40 MG DAILY AC 05/09 0700 AC 05/12 PO 0706 Prednisone 50 MG DAILY 05/14 1000 CAN PO 05/15 2199 Prednisone 60 MG DAILY 05/12 1000 DC PO 05/13 2199 Sertraline HCl 200 MG QAM 05/09 1000 AC 05/11 PO 0907 Last 24 Hrs of Lab/Matthieu Results Last 24 Hrs of Labs/Mics: Laboratory Tests 05/12/16 0715: Anion Gap 11, Estimated GFR > 60, BUN/Creatinine Ratio 18.6, CBC w Diff NO MAN DIFF REQ, RBC 4.14 L, MCV 91.4, MCH 30.6, RDW 13.3, MPV 9.2, Gran % 55.0, Lymphocytes % 34.7, Monocytes % 5.1, Eosinophils % 4.4, Basophils % 0.8, Absolute Granulocytes 3.1, Absolute Lymphocytes 2.0, Absolute Monocytes 0.3, Absolute Eosinophils 0.3, Absolute Basophils 0, PUBS MCHC 33.5 05/11/16 1625: Troponin I < 0.01 Assessment/Plan Assessment: She is a middle-aged woman with a past medical history of former smoker, COPD, obesity, obstructive sleep apnea, bipolar disorder is being evaluated for cough, fever likely from COPD exacerbation. Legionella and strep pneumo antigen negative 05/09/2016. Recent echocardiogram showed ejection fraction of above 65%, with small pericardial effusion. Patient developed SOB and lightheadedness upon admission, with 10/10 midsternal chest pain. Since she had a history of two cardiac catheterizations w/ no clear history of coronary heart disease- cardiac etiology was in the differentials. [facility] and to rule out ACS. Differential diagnosis: 1- COPD exacerbation 2- chest pain, rule out ACS Plan: 1- COPD exacerbation cough, fever-likely due to acute exacerbation of COPD. Patient has been started on azithromycin and will continue for 5 days. TRC nebs. Oxygen nasal cannula to keep oxygen saturation above 92%. Continue Symbicort twice daily. consulted pulmonary. resumed IV Solu-Medrol and as patient was wheezing bad, as per pulm recs. FU Lower respiratory cultures. 2- chest pain to rule out ACS serial troponin and EKG has been negative cardiology was also consulted. esophagogram ordered Mild gastroesophageal reflux into the distal esophagus. 2. Otherwise unremarkable exam. No evidence of esophageal dysmotility. PPI is ordered Patient developed chest pain upon exertion at 4 pm today, neg troponin and EKG, will follow, pain was 7/10 midsternal and also on the left side, accompanied by cold sweats. We called the ofiice of patient's rifle case repairer for records, they will be faxed, will follow 3- diabetes-insulin sliding scale. Blood sugar in the range of 110-150s. 4- bipolar disorder-continue lithium. Problem List: 1. COPD exacerbation Pain Ratin Pain Location: none Pain Goal: Pain 4 or less Pain Plan: tylenol Tomorrow's Labs & Rationales: cbc bep YONATAN ZUNIGA,JUNG 05/12/16 1407: Attending MD Review Statement Attending Statement Attending MD Statement: examined this patient, discuss w/resident/PA/UPHOLSTERY CUTTER, agreed w/resident/PA/UPHOLSTERY CUTTER, discussed with family, reviewed EMR data (avail), discussed with nursing, discussed with case mgmt, reviewed images, amended to note Attending Assessment/Plan: Patient seen and examined. In mild respiratory distress. Wheezing on exam. Has ongoing cough. The switch her back to IV steroids. Barium study shows gastroesophageal reflux, continue Prilosec by mouth.
[2016-05-12 08:31] LABS: ABSOLUTE BASOPHIL COUNT 0 /CUMM (0.0-0.2); ABSOLUTE EOSINOPHIL COUNT 0.3 /CUMM (0.0-0.7); ABSOLUTE GRANULOCYTE CT 3.1 /CUMM (1.4-6.5); ABSOLUTE MONOCYTE COUNT 0.3 /CUMM (0.10-0.60); BASOPHIL % 0.8 % (0.0-2.0); EOSINOPHIL % 4.4 % (0-5); HEMATOCRIT 37.8 % (37-47); MEAN CORPUSCULAR HGB 30.6 PG (27.0-31.0); MEAN CORPUSCULAR HGB CONC 33.5 G/DL (33.0-37.0); MEAN CORPUSCULAR VOLUME 91.4 FL (81.0-99.0); MEAN PLATELET VOLUME 9.2 FL (7.4-10.4); PLATELET COUNT 281 /CUMM (130-400); RBC DISTRIBUTION WIDTH 13.3 % (11.5-14.5); RED BLOOD CELL CT 4.14 /CUMM (4.20-5.40); WHITE BLOOD CELL COUNT 5.7 /CUMM (4.8-10.8)
[2016-05-12 08:44] VITALS: BP 146/76
--- NOTE | 2016-05-12 09:03 | PN- Pulmonary ---
Subjective HPI/Critical Care Issues: Patient continues to have shortness of breath and cough Objective Current Medications: Current Medications Sig/Ralph Start time Last Medication Dose Route Stop Time Status Admin Acetaminophen 650 MG Q6P PRN 05/08 2114 AC 05/10 PO 1314 Albuterol Sulfate 3 ML EVERY 4 HRS/AWAKE 05/09 1200 AC 05/11 INH 2127 Alprazolam 1 MG TID 05/080 AC 05/11 PO 05/15 2159 2203 Aripiprazole 20 MG AT BEDTIME 05/09 2199 AC 05/11 PO 2203 Aspirin Buffered 81 MG QAM 05/09 1000 AC 05/11 PO 0907 Atorvastatin Calcium 40 MG AT BEDTIME 05/09 220 AC 05/11 PO 2203 Azithromycin 500 MG DAILY 05/11 1245 AC 05/11 PO 05/13 220 1832 Azithromycin 500 MG DAILY@0 05/09 2200 DC 05/10 Dextrose/Water 250 ML IV 2141 Budesonide/ 2 PUF BID 05/08 2199 AC 05/11 Formoterol Fumarate INH 2204 Carbamazepine 400 MG BID 05/09 220 AC 05/11 PO 2203 Colchicine 600 MCG DAILY 05/09 1000 AC 05/11 PO 0907 Enoxaparin Sodium 40 MG DAILY 05/09 1000 AC 05/11 SC 0908 Fenofibrate 145 MG DAILY 05/09 1000 AC 05/11 PO 0907 Fluticasone 2 SPRAY DAILY 05/09 1000 AC 05/11 Propionate TRUMAN 0909 Furosemide 30 MG DAILY 05/09 1000 AC 05/11 PO 0908 Gabapentin 600 MG BID 05/08 2200 AC 05/11 PO 2203 Insulin Aspart 0 TIDAC 05/09 0800 AC 05/11 SC 1234 Insulin Detemir 22 UNITS QPM 05/08 220 AC 05/11 SC 2203 Levothyroxine Sodium 0.05 MG DAILY AC 05/09 0700 AC 05/12 PO 0706 Linaclotide 145 MCG DAILY 05/09 1000 AC 05/10 PO 0818 [place] Carbonate 300 MG TID 05/08 2199 AC 05/11 PO 2202 Methylprednisolone 40 MG BID 05/10 2200 DC 05/11 IV 0908 Nitroglycerin 0.4 MG ONCE ONE 05/11 1645 DC 05/11 SL 05/11 1646 1639 Nitroglycerin 0.4 MG DAILY 05/10 1334 AC 05/11 TOP 0908 Omeprazole 40 MG DAILY AC 05/09 0700 AC 05/12 PO 0706 Prednisone 50 MG DAILY 05/14 1000 AC PO 05/15 2199 Prednisone 60 MG DAILY 05/12 1000 AC PO 05/13 2199 Sertraline HCl 200 MG QAM 05/09 1000 AC 05/11 PO 0907 Vital Signs & I&O Last 24 Hrs of Vitals and I&O: Vital Signs Date Time Temp Pulse Resp B/P Pulse O2 O2 Flow FiO2 Ox Delivery Rate 05/12 0844 98.5 62 20 146/76 91 Nasal 3.0L Cannula 05/12 0005 55 95 05/12 0000 94 CPAP 05/11 2307 97.8 57 20 130/50 92 Room Air 05/11 2226 58 96 05/11 1826 98.0 72 18 118/70 95 05/11 1630 96 Nasal 2.0L Cannula 05/11 1616 98.0 60 20 122/60 95 Nasal 3.0L Cannula 05/11 1600 Nasal 3.0L Cannula Intake & Output 05/12 1600 05/12 0800 05/12 0000 Intake Total 600 Output Total Balance 600 Intake, Oral 600 Oxygen saturation 3 L 91% exam for chest shows scattered expiratory wheezing cardiac exam shows regular S1 and S2 without murmurs Impression/Plan Impression/Plan Impression/Plan: 50-year-old woman with exacerbation of COPD and persistent bronchospasm. Recommendations: Repeat sputum C&S. Taper FiO2 his saturations allow. I discussed present fails to improve to nebulized albuterol consider resuming Solu-Medrol
--- NOTE | 2016-05-12 12:54 | PN- Cardiology ---
Subjective Subjective: The patient continues to have low-grade 4/10 chest discomfort. Etiology remains unclear. I strongly suspect it is not cardiac in view of the protracted duration of the symptoms. Nevertheless, it did decrease from 10/29-07/30 yesterday after a sublingual nitroglycerin. Objective Vital Signs and I&Os Vital Signs Date Time Temp Pulse Resp B/P Pulse O2 O2 Flow FiO2 Ox Delivery Rate 05/12 0947 92 Room Air 05/12 0844 98.5 62 20 146/76 91 Nasal 3.0L Cannula 05/12 0800 Nasal 3.0L Cannula 05/12 0005 55 95 05/12 0000 94 CPAP 05/11 2307 97.8 57 20 130/50 92 Room Air 05/11 2226 58 96 05/11 1826 98.0 72 18 118/70 95 05/11 1630 96 Nasal 2.0L Cannula 05/11 1616 98.0 60 20 122/60 95 Nasal 3.0L Cannula 05/11 1600 Nasal 3.0L Cannula Intake & Output 05/12 1600 05/12 0800 05/12 0000 05/11 1600 05/11 0800 05/11 0000 Intake Total 600 860 240 480 Output Total Balance 600 860 240 480 Intake, Oral 600 860 240 480 Physical Exam: General Exam: AAOx3, No acute distress, Skin: No rashes, no breakdown HEENT: Normal Neck: Supple, JVP normal, carotid up stroke is normal bilaterally with no bruits CVS: Reg Rate, Normal S1,S2, distant heart sounds, 1/6 systolic murmur left sternal border Resp: Normal air entry, bilateral ronchi Abdomen: Soft, No tenderness, Normal Bowel Sounds Neuro: Nonfocal Extremities: No cyanosis, pedal edema Current Medications: Current Medications Sig/Ralph Start time Last Medication Dose Route Stop Time Status Admin Acetaminophen 650 MG Q6P PRN 05/08 2115 AC 05/10 PO 1314 Albuterol Sulfate 3 ML EVERY 4 HRS/AWAKE 05/09 1200 AC 05/12 INH 1239 Alprazolam 1 MG TID 05/08 2199 AC 05/12 PO 05/15 215 1104 Aripiprazole 20 MG AT BEDTIME 05/09 2199 AC 05/11 PO 2203 Aspirin Buffered 81 MG QAM 05/09 1000 AC 05/12 PO 1104 Atorvastatin Calcium 40 MG AT BEDTIME 05/09 2199 AC 05/11 PO 2203 Azithromycin 500 MG DAILY 05/11 1245 AC 05/12 PO 05/13 2199 1104 Azithromycin 500 MG DAILY@2200 05/09 2200 DC 05/10 Dextrose/Water 250 ML IV 2141 Budesonide/ 2 PUF BID 05/08 2199 AC 05/12 Formoterol Fumarate INH 1112 Carbamazepine 400 MG BID 05/09 2200 AC 05/12 PO 1104 Colchicine 600 MCG DAILY 05/09 1000 AC 05/12 PO 1104 Enoxaparin Sodium 40 MG DAILY 05/09 1000 AC 05/12 SC 1103 Fenofibrate 145 MG DAILY 05/09 1000 AC 05/12 PO 1104 Fluticasone 2 SPRAY DAILY 05/09 1000 AC 05/12 Propionate TRUMAN 1111 Furosemide 30 MG DAILY 05/09 1000 AC 05/12 PO 1104 Gabapentin 600 MG BID 05/08 220 AC 05/12 PO 1104 Insulin Aspart 0 TIDAC 05/09 0800 AC 05/11 SC 1234 Insulin Detemir 22 UNITS QPM 05/08 2199 AC 05/11 SC 2203 Levothyroxine Sodium 0.05 MG DAILY AC 05/09 0700 AC 05/12 PO 0706 Linaclotide 145 MCG DAILY 05/09 1000 AC 05/10 PO 0818 [place] Carbonate 300 MG TID 05/08 2199 AC 05/12 PO 1106 Methylprednisolone 40 MG BID 05/12 2199 AC IV Nitroglycerin 0.4 MG ONCE ONE 05/11 1645 DC 05/11 SL 05/11 1646 1639 Nitroglycerin 0.4 MG DAILY 05/10 1334 AC 05/12 TOP 1103 Omeprazole 40 MG DAILY AC 05/09 0700 AC 05/12 PO 0706 Prednisone 50 MG DAILY 05/14 1000 CAN PO 05/15 2199 Prednisone 60 MG DAILY 05/12 1000 DC PO 05/13 2199 Sertraline HCl 200 MG QAM 05/09 1000 AC 05/12 PO 1104 Results Last 48 Hrs of Labs/Mics: Laboratory Tests 05/12/16 0715: Anion Gap 11, Estimated GFR > 60, BUN/Creatinine Ratio 18.6, CBC w Diff NO MAN DIFF REQ, RBC 4.14 L, MCV 91.4, MCH 30.6, RDW 13.3, MPV 9.2, Gran % 55.0, Lymphocytes % 34.7, Monocytes % 5.1, Eosinophils % 4.4, Basophils % 0.8, Absolute Granulocytes 3.1, Absolute Lymphocytes 2.0, Absolute Monocytes 0.3, Absolute Eosinophils 0.3, Absolute Basophils 0, PUBS MCHC 33.5 05/11/16 1625: Troponin I < 0.01 05/11/16 0650: Anion Gap 10, Estimated GFR > 60, BUN/Creatinine Ratio 21.7, Magnesium 2.1, CBC w Diff NO MAN DIFF REQ, RBC 4.03 L, MCV 91.6, MCH 30.6, RDW 13.2, MPV 9.5, Gran % 58.3, Lymphocytes % 32.3, Monocytes % 4.8, Eosinophils % 3.9, Basophils % 0.7, Absolute Granulocytes 3.3, Absolute Lymphocytes 1.8, Absolute Monocytes 0.3, Absolute Eosinophils 0.2, Absolute Basophils 0, PUBS MCHC 33.4 05/11/16 0154: Troponin I < 0.01 05/10/16 2000: Troponin I < 0.01 05/10/16 1730: D-Dimer < 200 05/10/16 1300: Anion Gap 11, Estimated GFR > 60, BUN/Creatinine Ratio 26.7 H, Troponin I < 0.01 Assessment/Plan Assessment/Plan Assessment: 1. Chest pain syndrome 2. Probable exacerbation of COPD 3. History of prior syncope 4. Gastroesophageal reflux disease with no evidence of dysmotility on esophagram 5. History of hyperlipidemia 6. Sleep apnea Recommendations: -For now, I do not believe the patient's symptoms are likely to be cardiac in nature. -Please give sublingual nitroglycerin 0.4 mg times one now and repeat a second dose after 10 minutes to see if the patient's symptoms are relieved. -Eventually, the patient will need further outpatient evaluation with a pharmacologic nuclear stress test. -Please continue to try obtain copies of the patient's last cardiac catheterization to confirm the absence of coronary disease. Continue telemetry? Yes
[2016-05-12 15:56] VITALS: BP 134/55
[2016-05-12 22:52] VITALS: BP 130/52
[2016-05-13 08:31] VITALS: BP 131/74
[2016-05-13 10:24] LABS: ABSOLUTE BASOPHIL COUNT 0 /CUMM (0.0-0.2); ABSOLUTE EOSINOPHIL COUNT 0.3 /CUMM (0.0-0.7); ABSOLUTE GRANULOCYTE CT 5.6 /CUMM (1.4-6.5); ABSOLUTE LYMPH COUNT 2.1 /CUMM (1.2-3.4); ABSOLUTE MONOCYTE COUNT 0.4 /CUMM (0.10-0.60); BASOPHIL % 0.5 % (0.0-2.0); EOSINOPHIL % 3.1 % (0-5); GRANULOCYTE % 66.5 % (42.2-75.2); HEMATOCRIT 40.2 % (37-47); MEAN CORPUSCULAR HGB 30.3 PG (27.0-31.0); MEAN CORPUSCULAR VOLUME 91.8 FL (81.0-99.0); MEAN PLATELET VOLUME 9.3 FL (7.4-10.4); PLATELET COUNT 317 /CUMM (130-400); RBC DISTRIBUTION WIDTH 12.9 % (11.5-14.5); RED BLOOD CELL CT 4.38 /CUMM (4.20-5.40); WHITE BLOOD CELL COUNT 8.4 /CUMM (4.8-10.8)
--- NOTE | 2016-05-13 10:56 | PN- Housestaff ---
IGNACIO ZUNIGA,[facility] 05/13/16 1056: Subjective Follow-up For: COPD exacerbation Subjective: Patient was seen and examined this morning. She complains of shortness of breath and cough with no sputum.She is currently on 2L O2. She ambulates with walker becuase of peripheral neuropathy. She coplains of chest pain on exertion only. Review of Systems Constitutional: Denies: see HPI. Objective Last 24 Hrs of Vital Signs/I&O Vital Signs Date Time Temp Pulse Resp B/P Pulse O2 O2 Flow FiO2 Ox Delivery Rate 05/13 0932 95 Nasal 2.0L Cannula 05/13 0831 98.1 56 18 131/74 97 Room Air 05/13 0800 Nasal 3.0L Cannula 05/13 0310 58 95 05/13 0000 CPAP 05/12 2252 98.0 62 20 130/52 92 Room Air 05/12 1704 92 Room Air 05/12 1600 Nasal 3.0L Cannula 05/12 1556 98.4 62 134/55 100 Room Air Intake & Output 05/13 1600 05/13 0800 05/13 0000 Intake Total 300 730 Output Total Balance 300 730 Intake, IV 10 Intake, Oral 300 720 Physical Exam General Appearance: Alert, Oriented X3, Cooperative, No Acute Distress Skin: No Rashes, No Breakdown, No Significant Lesion Cardiovascular: Regular Rate, Normal S1, Normal S2, No Murmurs Lungs: bilateral wheeze Abdomen: Normal Bowel Sounds, Soft, No Tenderness Neurological: Normal Speech, Strength at 5/5 X4 Ext, Normal Tone, Sensation Intact, Cranial Nerves 3-12 NL, Reflexes 2+ Extremities: No Clubbing, No Cyanosis, No Edema Vascular: Pulses Symmetrical Assessment/Plan Assessment: She is a middle-aged woman with a past medical history of former smoker, COPD, obesity, obstructive sleep apnea, bipolar disorder is being evaluated for cough, fever likely from COPD exacerbation. Legionella and strep pneumo antigen negative 05/09/2016. Recent echocardiogram showed ejection fraction of above 65%, with small pericardial effusion. Patient developed SOB and lightheadedness upon admission, with 10/10 midsternal chest pain. Since she had a history of two cardiac catheterizations w/ no clear history of coronary heart disease- cardiac etiology was in the differentials. Patient was transferred to [facility] for monitoring and to rule out ACS. Differential diagnosis: 1- COPD exacerbation 2- chest pain, rule out ACS Plan: 1- COPD exacerbation cough, fever-likely due to acute exacerbation of COPD. Patient has been started on azithromycin and will continue for 5 days. TRC nebs. Oxygen nasal cannula to keep oxygen saturation above 92%. Continue Symbicort twice daily. consulted pulmonary. continue IV Solu-Medrol and as patient was wheezing bad, repaet sputum culture. 2- chest pain to rule out ACS serial troponin and EKG has been negative cardiology was also consulted. esophagogram ordered Mild gastroesophageal reflux into the distal esophagus. Otherwise unremarkable exam. No evidence of esophageal dysmotility. -Continue PPI -Patient developed chest pain upon exertion at 1pm today after she walked down the hallway, EKG was ordered and did not show any changes, troponin was ordered stat. patient was given nitroglycerin 0.4 mg tab (2 tablets with 10 min apart as the pain did not improve after the first dose). -The patient's field service engineer was called for records, they will be faxed, will follow 3- diabetes-insulin sliding scale. -levemir 22 units sialy at bedtime -Novolog SS 4- bipolar disorder-continue lithium. Problem List: 1. CHEST PAIN 2. COPD exacerbation Pain Ratin Pain Location: chest pain Pain Goal: Pain 4 or less Pain Plan: Nitroglycrin 0.4 mg max of 2 tab with 10 min apart Tomorrow's Labs & Rationales: cbc, cmp YONATAN ZUNIGA,[facility] 05/13/16 1149: Attending MD Review Statement Attending Statement Attending MD Statement: examined this patient, discuss w/resident/PA/T[employer], agreed w/resident/PA/T[employer], discussed with family, reviewed EMR data (avail), discussed with nursing, discussed with case mgmt, reviewed images, amended to note Attending Assessment/Plan: Patient still short of breath on ambulation. She is wheezing on exam. We'll continue IV steroids for now.
--- NOTE | 2016-05-13 11:11 | PN- Pulmonary ---
Subjective HPI/Critical Care Issues: Patient continues to remain wheezy and mildly short of breath Objective Current Medications: Current Medications Sig/Ralph Start time Last Medication Dose Route Stop Time Status Admin Acetaminophen 650 MG Q6P PRN 05/08 2114 AC 05/10 PO 1314 Albuterol Sulfate 3 ML EVERY 4 HRS/AWAKE 05/09 1200 AC 05/13 INH 0931 Alprazolam 1 MG TID 05/08 2200 AC 05/13 PO 05/15 2159 0959 Aripiprazole 20 MG AT BEDTIME 05/09 2199 AC 05/12 PO 2202 Aspirin Buffered 81 MG QAM 05/09 1000 AC 05/13 PO 1000 Atorvastatin Calcium 40 MG AT BEDTIME 05/09 220 AC 05/12 PO 2201 Azithromycin 500 MG DAILY 05/11 1245 AC 05/13 PO 05/13 2199 1000 Budesonide/ 2 PUF BID 05/08 2199 AC 05/13 Formoterol Fumarate INH 1009 Carbamazepine 400 MG BID 05/09 220 AC 05/13 PO 1000 Colchicine 600 MCG DAILY 05/09 1000 AC 05/13 PO 1000 Enoxaparin Sodium 40 MG DAILY 05/09 1000 AC 05/13 SC 0959 Fenofibrate 145 MG DAILY 05/09 1000 AC 05/13 PO 1000 Fluticasone 2 SPRAY DAILY 05/09 1000 AC 05/13 Propionate TRUMAN 0959 Furosemide 30 MG DAILY 05/09 1000 AC 05/13 PO 1000 Gabapentin 600 MG BID 05/08 2199 AC 05/13 PO 1000 Insulin Aspart 0 TIDAC 05/09 0800 AC 05/11 SC 1234 Insulin Detemir 22 UNITS QPM 05/08 2199 AC 05/12 SC 2202 Levothyroxine Sodium 0.05 MG DAILY AC 05/09 0700 AC 05/13 PO 0544 Linaclotide 145 MCG DAILY 05/09 1000 AC 05/13 PO 1000 [place] Carbonate 300 MG TID 05/08 2199 AC 05/13 PO 1000 Methylprednisolone 40 MG BID 05/12 2199 AC 05/13 IV 1000 Morphine Sulfate 2 MG ONCE ONE 05/12 1814 DC 05/12 IV 05/12 181 1811 Nitroglycerin 0.4 MG ONCE ONE 05/12 181 DC 05/12 SL 05/12 1816 1825 Nitroglycerin 0.4 MG SEE ADMIN CRITERIA 05/12 1345 DC 05/12 SL 05/12 1400 1402 Nitroglycerin 0.4 MG SEE ADMIN CRITERIA 05/12 1345 DC SL 05/12 1400 Nitroglycerin 0.4 MG DAILY 05/10 1334 AC 05/13 TOP 1000 Omeprazole 40 MG DAILY AC 05/09 0700 AC 05/13 PO 0544 Sertraline HCl 200 MG QAM 05/09 1000 AC 05/13 PO 1000 Vital Signs & I&O Last 24 Hrs of Vitals and I&O: Vital Signs Date Time Temp Pulse Resp B/P Pulse O2 O2 Flow FiO2 Ox Delivery Rate 05/13 0932 95 Nasal 2.0L Cannula 05/13 0831 98.1 56 18 131/74 97 Room Air 05/13 0800 Nasal 3.0L Cannula 05/13 0310 58 95 05/13 0000 CPAP 05/12 2252 98.0 62 20 130/52 92 Room Air 05/12 1704 92 Room Air 05/12 1600 Nasal 3.0L Cannula 05/12 1556 98.4 62 134/55 100 Room Air Intake & Output 05/13 1600 05/13 0800 05/13 0000 Intake Total 300 730 Output Total Balance 300 730 Intake, IV 10 Intake, Oral 300 720 She is comfortable on room air with normal oxygen saturations exam for chest showed bilateral scattered wheezing cardiac exam shows regular S1 and S2 without murmur Impression/Plan Impression/Plan Impression/Plan: 50-year-old woman with exacerbation of COPD and persistent bronchospasm. Recommendations: Repeat sputum C&S. Continue nebs inhaled bronchodilators and oral prednisone. Suspect she will require extended period of time of recovery before bronchospasm completely resolves
--- NOTE | 2016-05-13 12:41 | NUR ---
PATIENT REPORTS 8/10 CHEST PAIN THAT DEVELOPED AFTER AMBULATION IN [place]; SHE NOW HAS NAUSEA ACCOMPANYING IT; DR. CADEN PIERRE NOTIFIED; BP 134/82 HR 68; SL NITRO ADMINISTERED PER ONE TIME ORDER; WILL MONITOR
--- NOTE | 2016-05-13 15:08 | PN- Cardiology ---
Subjective Subjective: Yesterday, the patient's chest discomfort was relieved again with 2 nitroglycerin. She developed recurrent discomfort today with ambulation. At the moment, the discomfort is 2/10 in severity. Objective Vital Signs and I&Os Vital Signs Date Time Temp Pulse Resp B/P Pulse O2 O2 Flow FiO2 Ox Delivery Rate 05/13 0932 95 Nasal 2.0L Cannula 05/13 0831 98.1 56 18 131/74 97 Room Air 05/13 0800 Nasal 3.0L Cannula 05/13 0310 58 95 05/13 0000 CPAP 05/12 2252 98.0 62 20 130/52 92 Room Air 05/12 1704 92 Room Air 05/12 1600 Nasal 3.0L Cannula 05/12 1556 98.4 62 134/55 100 Room Air Intake & Output 05/13 1600 05/13 0800 05/13 0000 05/12 1600 05/12 0800 05/12 0000 Intake Total 720 300 730 720 600 Output Total 400 Balance 320 300 730 720 600 Intake, IV 10 Intake, Oral 720 300 720 720 600 Output, Urine 400 Patient 220 lb Weight Physical Exam: General Exam: AAOx3, No acute distress, Skin: No rashes, no breakdown HEENT: Normal Neck: Supple, JVP normal, carotid up stroke is normal bilaterally with no bruits CVS: Reg Rate, Normal S1,S2, distant heart sounds, 1/6 systolic murmur left sternal border Resp: Normal air entry, bilateral ronchi Abdomen: Soft, No tenderness, Normal Bowel Sounds Neuro: Nonfocal Extremities: No cyanosis, pedal edema Current Medications: Current Medications Sig/Ralph Start time Last Medication Dose Route Stop Time Status Admin Acetaminophen 650 MG Q6P PRN 05/08 2114 AC 05/10 PO 1314 Albuterol Sulfate 3 ML EVERY 4 HRS/AWAKE 05/09 1200 AC 05/13 INH 0931 Alprazolam 1 MG TID 05/08 2199 AC 05/13 PO 05/15 2159 0959 Aripiprazole 20 MG AT BEDTIME 05/09 2199 AC 05/12 PO 220 Aspirin Buffered 81 MG QAM 05/09 1000 AC 05/13 PO 1000 Atorvastatin Calcium 40 MG AT BEDTIME 05/09 220 AC 05/12 PO 2201 Azithromycin 500 MG DAILY 05/11 1245 AC 05/13 PO 05/13 2199 1000 Budesonide/ 2 PUF BID 05/08 2199 AC 05/13 Formoterol Fumarate INH 1009 Carbamazepine 400 MG BID 05/09 2200 AC 05/13 PO 1000 Colchicine 600 MCG DAILY 05/09 1000 AC 05/13 PO 1000 Enoxaparin Sodium 40 MG DAILY 05/09 1000 AC 05/13 SC 0959 Fenofibrate 145 MG DAILY 05/09 1000 AC 05/13 PO 1000 Fluticasone 2 SPRAY DAILY 05/09 1000 AC 05/13 Propionate TRUMAN 0959 Furosemide 30 MG DAILY 05/09 1000 AC 05/13 PO 1000 Gabapentin 600 MG BID 05/08 220 AC 05/13 PO 1000 Insulin Aspart 0 TIDAC 05/09 0800 AC 05/11 SC 1234 Insulin Detemir 22 UNITS QPM 05/08 2199 05/12 SC 2202 Isosorbide 30 MG DAILY 05/14 1000 AC Mononitrate PO Levothyroxine Sodium 0.05 MG DAILY AC 05/09 0700 AC 05/13 PO 0544 Linaclotide 145 MCG DAILY 05/09 1000 AC 05/13 PO 1000 [place] Carbonate 300 MG TID 05/08 2199 05/13 PO 1000 Methylprednisolone 40 MG BID 05/12 220 05/13 IV 1000 Morphine Sulfate 2 MG ONCE ONE 05/12 1815 DC 05/12 IV 05/12 1816 1811 Nitroglycerin 0.4 MG ONCE ONE 05/13 1300 DC 05/13 SL 05/13 1301 1303 Nitroglycerin 0.4 MG ONCE ONE 05/13 1245 CA 05/13 05/13 1246 1241 Nitroglycerin 0.4 MG ONCE ONE 05/12 1815 CA 05/12 05/12 1816 1825 Nitroglycerin 0.4 MG DAILY 05/10 1334 05/13 TOP 1000 Omeprazole 40 MG DAILY AC 05/09 0700 AC 05/13 PO 0544 Sertraline HCl 200 MG QAM 05/09 1000 AC 05/13 PO 1000 Results Last 48 Hrs of Labs/Mics: Laboratory Tests 05/13/16 1310: Troponin I < 0.01 05/13/16 0735: Anion Gap 9, Estimated GFR > 60, BUN/Creatinine Ratio 20.0, CBC w Diff NO MAN DIFF REQ, RBC 4.38, MCV 91.8, MCH 30.3, RDW 12.9, MPV 9.3, Gran % 66.5, Lymphocytes % 25.5, Monocytes % 4.4, Eosinophils % 3.1, Basophils % 0.5, Absolute Granulocytes 5.6, Absolute Lymphocytes 2.1, Absolute Monocytes 0.4, Absolute Eosinophils 0.3, Absolute Basophils 0, PUBS MCHC 33.0 05/12/16 0715: Anion Gap 11, Estimated GFR > 60, BUN/Creatinine Ratio 18.6, CBC w Diff NO MAN DIFF REQ, RBC 4.14 L, MCV 91.4, MCH 30.6, RDW 13.3, MPV 9.2, Gran % 55.0, Lymphocytes % 34.7, Monocytes % 5.1, Eosinophils % 4.4, Basophils % 0.8, Absolute Granulocytes 3.1, Absolute Lymphocytes 2.0, Absolute Monocytes 0.3, Absolute Eosinophils 0.3, Absolute Basophils 0, PUBS MCHC 33.5 05/11/16 1625: Troponin I < 0.01 Assessment/Plan Assessment/Plan Assessment: 1. Chest pain syndrome 2. Probable exacerbation of COPD 3. History of prior syncope 4. Gastroesophageal reflux disease with no evidence of dysmotility on esophagram 5. History of hyperlipidemia 6. Sleep apnea Recommendations: -For now, I do not believe the patient's symptoms are likely to be cardiac in nature. Nevertheless, the patient's symptoms are recurrent and are relieved by nitroglycerin. -In view of the patient's recurrent symptoms, and the repetitive relieved by nitroglycerin, I have recommended a pharmacologic nuclear stress test tomorrow. The patient agrees with this plan. -Isosorbide mononitrate 30 mg daily to be started today. -Review of outpatient records shows that the patient's last cardiac catheterization in 2011 showed no significant coronary disease.--Further plans after the nuclear stress test. Continue telemetry? Yes
[2016-05-13 16:33] VITALS: BP 138/65
[2016-05-13 22:37] VITALS: BP 112/40
[2016-05-14 08:28] VITALS: BP 112/52
[2016-05-14 08:34] LABS: ABSOLUTE BASOPHIL COUNT 0.1 /CUMM (0.0-0.2); ABSOLUTE EOSINOPHIL COUNT 0.3 /CUMM (0.0-0.7); ABSOLUTE LYMPH COUNT 2.5 /CUMM (1.2-3.4); ABSOLUTE MONOCYTE COUNT 0.4 /CUMM (0.10-0.60); BASOPHIL % 0.6 % (0.0-2.0); EOSINOPHIL % 3.4 % (0-5); GRANULOCYTE % 64.4 % (42.2-75.2); HEMATOCRIT 38.6 % (37-47); MEAN CORPUSCULAR HGB 30.1 PG (27.0-31.0); MEAN CORPUSCULAR HGB CONC 32.8 G/DL (33.0-37.0); MEAN CORPUSCULAR VOLUME 91.8 FL (81.0-99.0); MEAN PLATELET VOLUME 9.3 FL (7.4-10.4); PLATELET COUNT 322 /CUMM (130-400); RBC DISTRIBUTION WIDTH 12.9 % (11.5-14.5); RED BLOOD CELL CT 4.21 /CUMM (4.20-5.40); WHITE BLOOD CELL COUNT 9.3 /CUMM (4.8-10.8)
--- NOTE | 2016-05-14 08:52 | PN- Pulmonary ---
TRACEY LEGGETT 05/14/16 0852: Subjective HPI/Critical Care Issues: 50-year-old woman with a history of COPD and obstructive sleep apnea with an exacerbation of COPD likely secondary to viral bronchitis. Patient was visited and examined today. Patient is lying comfortably in bed. She reports significant improvement in her shortness of breath. Cough and sputum production and shortness of breath has improved She has been able to ambulate. Patient reports a reproducible (walking from her room to elevated), left-sided pressure type chest pain and chest tightness associated with palpitation and feeling of nauseousness. Upon development the pain is 7 out of 10, relief by nitroglycerin, and radiates to her back between shoulder blades. Otherwise patient remained fairly stable and asymptomatic. Assessment and plan #1 COPD exacerbation most possibly due to viral infection. * Start PO prednisone tappering dose. Start from 60 mg PO daily, 50 mg Po X 2 days; 40 mg po x 2days; 30, 20, and 10 mg po, each, for 2 days. * Watch off antibiotics if patient spikes fever send blood cultures * Proventil INH 3 mL every 4H * Symbicort 160-4.5, 2 puffs twice a day * Keep on O2 nasal cannula with target O2 saturation above 92%Follow sputum Cx * urine streptococcal and Legionella antigen: both were negative #2 Atypical chest pain-reproducible left-sided, chest tightness and pressure- type chest pain, relieve by Nitrate; radiation to back, accompanied with palpitation and feeling of nauseousness. No accompanying clear EKG changes. High risk Patient w/ positive family history for cardiac events. * Not able to ambulate: Persantine stress test is scheduled * manage per medical team and information engineer #2 history of minimal pericardial effusion detected on echo February * Stable; No change #3 diabetes and Hypothyroidism * Managed her medical team * Needs station mechanic helper referal as an out patient #4 bipolar disorder-stable * [place] 300 Mg DVT prophylaxis Lovenox DNR/DNI #1 COPD exacerbation most possibly due to viral infection. * IV solumedrol 40 MG IV BID * Watch off antibiotics if patient spikes fever send blood cultures * Proventil INH 3 mL every 4 * Symbicort 160-4.5, 2 puffs twice a day * Keep on O2 nasal cannula with target O2 saturation above 92% * Follow sputum Cx * Follow urine streptococcal and Legionella antigen: both were negative #2 Atypical chest pain- Not reproducible, relieve by Nitrate; No radaition, and no concurrent EKG changes in a high reick patient. * Persantine stress test #2 history of minimal pericardial effusion detected on echo February * Stable; No change #3 diabetes and Hypothyroidism * Managed her medical team #4 bipolar disorder-stable * Lit 300 Mg DVT prophylaxis Lovenox DNR/DNI Objective Current Medications: Current Medications Sig/Ralph Start time Last Medication Dose Route Stop Time Status Admin Acetaminophen 650 MG Q6P PRN 05/08 2115 AC 05/10 PO 1314 Albuterol Sulfate 3 ML EVERY 4 HRS/AWAKE 05/09 1200 AC 05/14 INH 0802 Alprazolam 1 MG TID 05/08 2199 AC 05/14 PO 05/15 2159 0931 Aripiprazole 20 MG AT BEDTIME 05/09 220 AC 05/13 PO 220 Aspirin Buffered 81 MG QAM 05/09 1000 AC 05/14 PO 0927 Atorvastatin Calcium 40 MG AT BEDTIME 05/09 2200 AC 05/13 PO 2206 Azithromycin 500 MG DAILY 05/11 1245 DC 05/13 PO 05/13 220 1000 Budesonide/ 2 PUF BID 05/08 220 AC 05/14 Formoterol Fumarate INH 0932 Carbamazepine 400 MG BID 05/09 2200 AC 05/14 PO 0927 Colchicine 600 MCG DAILY 05/09 1000 AC 05/14 PO 0927 Dipyridamole 55 MG ONE ONE 05/14 0900 AC Dextrose/Water 29 ML IV 05/16 0059 Enoxaparin Sodium 40 MG DAILY 05/09 1000 AC 05/14 SC 0928 Fenofibrate 145 MG DAILY 05/09 1000 AC 05/14 PO 0926 Fluticasone 2 SPRAY DAILY 05/09 1000 AC 05/14 Propionate TRUMAN 0928 Furosemide 30 MG DAILY 05/09 1000 AC 05/13 PO 1000 Gabapentin 600 MG BID 05/08 2200 AC 05/14 PO 0926 Insulin Aspart 0 TIDAC 05/09 0800 AC 05/11 SC 1234 Insulin Detemir 22 UNITS QPM 05/08 2200 AC 05/13 SC 2206 Isosorbide 30 MG DAILY 05/14 1000 AC Mononitrate PO Levothyroxine Sodium 0.05 MG DAILY AC 05/09 0700 AC 05/14 PO 0557 Linaclotide 145 MCG DAILY 05/09 1000 AC 05/13 PO 1000 [place] Carbonate 300 MG TID 05/08 2199 AC 05/14 PO 0927 Methylprednisolone 40 MG BID 05/12 2199 AC 05/14 IV 0928 Nitroglycerin 0.4 MG ONCE ONE 05/13 1300 DC 05/13 SL 05/13 1301 1303 Nitroglycerin 0.4 MG ONCE ONE 05/13 1245 DC 05/13 SL 05/13 1246 1241 Nitroglycerin 0.4 MG DAILY 05/10 1334 AC 05/13 TOP 1000 Omeprazole 40 MG DAILY AC 05/09 0700 AC 05/14 PO 0557 Sertraline HCl 200 MG QAM 05/09 1000 AC 05/14 PO 0926 Vital Signs & I&O Last 24 Hrs of Vitals and I&O: Vital Signs Date Time Temp Pulse Resp B/P Pulse O2 O2 Flow FiO2 Ox Delivery Rate 05/14 08 98.4 57 18 112/52 92 Room Air 05/14 0802 94 Room Air Room Air 05/14 0800 Room Air 05/14 0313 62 97 05/14 0040 61 91 05/14 0037 61 89 05/14 0000 94 BIPAP 3.0L 05/13 2236 98.1 62 20 112/40 94 Nasal 3.0L Cannula 05/13 2235 89 96 05/13 1728 96 Nasal 2.0L Cannula 05/13 1633 98.9 59 16 138/65 90 Nasal Cannula 05/13 1600 Nasal 3.0L Cannula Intake & Output 05/14 1600 05/14 0800 05/14 0000 Intake Total 100 240 Output Total 400 Balance -300 240 Intake, Oral 100 240 Number 1 Bowel Movements Output, Urine 400 Exam General Appearance: no apparent distress, alert, awake, comfortable, obese Head: atraumatic, normal appearance Ears, Nose, Throat: normal pharynx Neck: normal inspection Respiratory: chest non-tender, lungs clear, No wheezing Cardiovascular: regular rate/rhythm Abdomen: soft Extremities: normal inspection Results Last 24 Hrs of Lab Results: Laboratory Tests 05/14/16 0741: Anion Gap 11, Estimated GFR > 60, BUN/Creatinine Ratio 22.9, CBC w Diff NO MAN DIFF REQ, RBC 4.21, MCV 91.8, MCH 30.1, RDW 12.9, MPV 9.3, Gran % 64.4, Lymphocytes % 27.4, Monocytes % 4.2, Eosinophils % 3.4, Basophils % 0.6, Absolute Granulocytes 6.0, Absolute Lymphocytes 2.5, Absolute Monocytes 0.4, Absolute Eosinophils 0.3, Absolute Basophils 0.1, PUBS MCHC 32.8 L 05/13/16 1310: Troponin I < 0.01 Impression/Plan Impression/Plan Impression/Plan: As discussed above. Code Status: Full coed Problem List: 1. Chest pain, unspecified 2. COPD exacerbation SAÚL SOLANO MD 05/14/16 1029: Impression/Plan Impression/Plan Recommendations: Saúl Ring M.D. have examined this patient, reviewed available EMR data, personally reviewed images, discussed with resident/PA/MANAGER STERILE PROCESSING, discussed management plan with housestaff and nursing staff, discussed managment plan all of healthcare providers, discussed management plan with patient and/or family, agreed with resident/PA/MANAGER STERILE PROCESSING. The past history and parts of the chart have been autopopulated. taper steroids stress test today
--- NOTE | 2016-05-14 09:20 | PN- Housestaff ---
IGNACIO ZUNIGA,[facility] 05/14/16 0920: Subjective Follow-up For: COPD exacerbation Chest pain Tele-Events Since Last Visit: Sinus bradycardia/sinus rhythm rate 51-65 No events Subjective: Patient was seen and examined this morning. She has had no chest pain overnight.She endorses some nasal congestion and one watery bowel movement yesterday, no blood or mucous. Patient is NPO for a pharmacological nuclear stress test scheduled today. Review of Systems Constitutional: Denies: see HPI. Objective Last 24 Hrs of Vital Signs/I&O Vital Signs Date Time Temp Pulse Resp B/P Pulse O2 O2 Flow FiO2 Ox Delivery Rate 05/14 2030 56 92/40 05/14 2000 57 108/64 05/14 1710 97 Nasal 2.0L Cannula 05/14 1622 98.1 67 18 147/66 96 Room Air 05/14 1237 57 112/52 05/14 0828 98.4 57 18 112/52 92 Room Air 05/14 0802 94 Room Air Room Air 05/14 0800 Room Air 05/14 0313 62 97 05/14 0040 61 91 05/14 0037 61 89 05/14 0000 94 BIPAP 3.0L 05/13 2237 98.1 62 20 112/40 94 Nasal 3.0L Cannula 05/13 2235 89 96 Intake & Output 05/14 1600 05/14 0800 05/14 0000 Intake Total 311 100 240 Output Total 400 Balance 311 -300 240 Intake, IV 11 Intake, Oral 300 100 240 Number 1 Bowel Movements Output, Urine 400 Physical Exam General Appearance: Alert, Oriented X3, Cooperative, No Acute Distress Skin: No Rashes, No Breakdown, No Significant Lesion HEENT: Atraumatic, PERRLA, EOMI, Mucous Membr. moist/pink Neck: Supple, No LAD Cardiovascular: Regular Rate, Normal S1, Normal S2, No Murmurs Lungs: Clear to Auscultation, Normal Air Movement Abdomen: Normal Bowel Sounds, Soft, No Tenderness Neurological: Normal Gait, Normal Speech, Strength at 5/5 X4 Ext, Normal Tone, Sensation Intact, Cranial Nerves 3-12 NL, Reflexes 2+ Extremities: No Clubbing, No Cyanosis, No Edema, Normal Pulses, No Tenderness/ Swelling Vascular: Normal Pulses Assessment/Plan Assessment: She is a middle-aged woman with a past medical history of former smoker, COPD, obesity, obstructive sleep apnea, bipolar disorder is being evaluated for cough, fever likely from COPD exacerbation. Legionella and strep pneumo antigen negative 05/09/2016. Recent echocardiogram showed ejection fraction of above 65%, with small pericardial effusion. Patient developed SOB and lightheadedness upon admission, with 10/10 midsternal chest pain. Since she had a history of two cardiac catheterizations w/ no clear history of coronary heart disease- cardiac etiology was in the differentials. Patient was transferred to [facility] for monitoring and to rule out ACS. Differential diagnosis: 1- COPD exacerbation 2- Chest pain, rule out ACS Plan: 1- COPD exacerbation -Patient was admitted with CC of cough, fever-likely due to acute exacerbation of COPD. -Patient finished 5v days course of azithromycin on 05/13 -[facility] nebs -Oxygen nasal cannula to keep oxygen saturation above 92% -Continue Symbicort twice daily -Pulmonary consultation was obtained, thanks for the recommendation -Swtich IV Solu-Medrol to PO predinsone 60 mg daily -Sputum culture pending 2- chest pain to rule out ACS -Serial troponin and EKG has been negative -Cardiology was also consulted. -Esophagogram ordered Mild gastroesophageal reflux into the distal esophagus. Otherwise unremarkable exam. No evidence of esophageal dysmotility. -Continue PPI -Pateient had the nuclear stress test today, results showed moderately sized region of reversible ischemia is present in the anterior wall, as described above. Left ventricular wall motion and ejection fraction are normal. Dr. Skaggs was contacted regarding the test result, will plan for cardic cath tomorrow morning. Patient has active chest pain after the stress study although she is hemodynamically stable with no EKG specfic changes and normal troponin 0.01. Patient was given nitroglyceride patch and sublingual with aim to keep her pain free as possible. Patient was palced NPO at mednight, all the paper work is ready for the transfer tomorrow -The patient's barrel dedenting machine operator was called for records, the previous 2 cardic cath results are within normal 3- diabetes-insulin sliding scale. -levemir 22 units sialy at bedtime -Novolog SS 4- bipolar disorder-continue lithium. DVT proph. lovonex Diet CCH 2 Code DNR/DNI Problem List: 1. CHEST PAIN 2. COPD exacerbation Pain Ratin Pain Location: left chest pain radiate to back and left neck Pain Goal: Remain pain free Pain Plan: nitroglycrine patch and sublingul PRN Tomorrow's Labs & Rationales: CBC, CMP BETSY ZUNIGA,GRIFFIN 05/14/162119: Attending MD Review Statement Attending Statement Attending MD Statement: examined this patient, discuss w/resident/PA/MANUFACTURER'S SERVICE REPRESENTATIVE, agreed w/resident/PA/MANUFACTURER'S SERVICE REPRESENTATIVE, reviewed EMR data (avail), discussed with nursing, discussed with case mgmt, reviewed images, amended to note Attending Assessment/Plan: The patient was seen and discussed with house staff. S/P Dipyridamole/Cardiolite today with images showing moderate sized area of moderate Dipyridamole induced ischemia in anterior distribution [facility] The patient was pain free and in afternoon after ambulating had recurrent pain that improved post Nitropatch and 1 SL NTG (was down to 4/10 pain at 4:30 pm). Will administer more NTG until pain free. Discussed with Dr. Skaggs. Needs cardiac cath. If worsens this evening will need transfer.
--- NOTE | 2016-05-14 11:44 | PN- Cardiology ---
Subjective Subjective: ports that she is feeling better. No further chest pain. Shortness of breath is significantly improved. No palpitations. No lightheadedness or dizziness. No nausea or vomiting. Objective Vital Signs and I&Os Vital Signs Date Time Temp Pulse Resp B/P Pulse O2 O2 Flow FiO2 Ox Delivery Rate 05/14 0828 98.4 57 18 112/52 92 Room Air 05/14 0802 94 Room Air Room Air 05/14 0800 Room Air 05/14 0313 62 97 05/14 0040 61 91 05/14 0037 61 89 05/14 0000 94 BIPAP 3.0L 05/13 2236 98.1 62 20 112/40 94 Nasal 3.0L Cannula 05/13 223 89 96 05/13 1728 96 Nasal 2.0L Cannula 05/13 1633 98.9 59 16 138/65 90 Nasal Cannula 05/13 1600 Nasal 3.0L Cannula Intake & Output 05/14 1600 05/14 0800 05/14 0000 05/13 1600 05/13 0800 05/13 0000 Intake Total 100 240 720 300 730 Output Total 400 400 Balance -300 240 320 300 730 Intake, IV 10 Intake, Oral 100 240 720 300 720 Number 1 Bowel Movements Output, Urine 400 400 Physical Exam: General Exam: AAOx3, No acute distress, Skin: No rashes, no breakdown HEENT: Normal Neck: Supple, JVP normal, carotid up stroke is normal bilaterally with no bruits CVS: Reg Rate, Normal S1,S2, distant heart sounds, 1/6 systolic murmur left sternal border Resp: Normal air entry, bilateral ronchi Abdomen: Soft, No tenderness, Normal Bowel Sounds Neuro: Nonfocal Extremities: No cyanosis, pedal edema Current Medications: Current Medications Sig/Ralph Start time Last Medication Dose Route Stop Time Status Admin Acetaminophen 650 MG Q6P PRN 05/08 2115 AC 05/10 PO 1314 Albuterol Sulfate 3 ML EVERY 4 HRS/AWAKE 05/09 1200 AC 05/14 INH 0802 Alprazolam 1 MG TID 05/08 2199 AC 05/14 PO 05/15 2159 0931 Aripiprazole 20 MG AT BEDTIME 05/09 2199 AC 05/13 PO 220 Aspirin Buffered 81 MG QAM 05/09 1000 AC 05/14 PO 09 Atorvastatin Calcium 40 MG AT BEDTIME 05/09 2199 AC 05/13 PO 2206 Azithromycin 500 MG DAILY 05/11 1245 DC 05/13 PO 05/13 2200 1000 Budesonide/ 2 PUF BID 05/08 2199 AC 05/14 Formoterol Fumarate INH 0932 Carbamazepine 400 MG BID 05/09 2200 AC 05/14 PO 0927 Colchicine 600 MCG DAILY 05/09 1000 AC 05/14 PO 0927 Dipyridamole 55 MG ONE ONE 05/14 0900 AC Dextrose/Water 29 ML IV 05/16 0059 Enoxaparin Sodium 40 MG DAILY 05/09 1000 AC 05/14 SC 0928 Fenofibrate 145 MG DAILY 05/09 1000 AC 05/14 PO 0926 Fluticasone 2 SPRAY DAILY 05/09 1000 AC 05/14 Propionate TRUMAN 0928 Furosemide 30 MG DAILY 05/09 1000 AC 05/13 PO 1000 Gabapentin 600 MG BID 05/08 2200 AC 05/14 PO 0926 Insulin Aspart 0 TIDAC 05/09 0800 AC 05/11 SC 1234 Insulin Detemir 22 UNITS QPM 05/08 2199 AC 05/13 SC 2206 Isosorbide 30 MG DAILY 05/14 1000 AC Mononitrate PO Levothyroxine Sodium 0.05 MG DAILY AC 05/09 0700 AC 05/14 PO 0557 Linaclotide 145 MCG DAILY 05/09 1000 AC 05/13 PO 1000 [place] Carbonate 300 MG TID 05/08 2199 AC 05/14 PO 0927 Methylprednisolone 40 MG BID 05/12 2199 DC 05/14 IV 0928 Nitroglycerin 0.4 MG ONCE ONE 05/13 1300 DC 05/13 SL 05/13 1301 1303 Nitroglycerin 0.4 MG ONCE ONE 05/13 1245 DC 05/13 SL 05/13 1246 1241 Nitroglycerin 0.4 MG DAILY 05/10 1334 AC 05/13 TOP 1000 Omeprazole 40 MG DAILY AC 05/09 0700 AC 05/14 PO 0557 Prednisone 10 MG DAILY 05/24 1000 AC PO 05/26 0959 Prednisone 20 MG DAILY 05/22 1000 AC PO 05/24 0959 Prednisone 30 MG DAILY 05/20 1000 AC PO 05/22 0959 Prednisone 40 MG DAILY 05/18 1000 AC PO 05/20 0959 Prednisone 50 MG DAILY 05/16 1000 AC PO 05/18 0959 Prednisone 60 MG DAILY 05/14 1020 CAN PO 05/26 1019 Prednisone 60 MG DAILY 05/14 1000 AC PO 05/16 0959 Sertraline HCl 200 MG QAM 05/09 1000 AC 05/14 PO 0926 Results Last 48 Hrs of Labs/Mics: Laboratory Tests 05/14/16 0741: Anion Gap 11, Estimated GFR > 60, BUN/Creatinine Ratio 22.9, CBC w Diff NO MAN DIFF REQ, RBC 4.21, MCV 91.8, MCH 30.1, RDW 12.9, MPV 9.3, Gran % 64.4, Lymphocytes % 27.4, Monocytes % 4.2, Eosinophils % 3.4, Basophils % 0.6, Absolute Granulocytes 6.0, Absolute Lymphocytes 2.5, Absolute Monocytes 0.4, Absolute Eosinophils 0.3, Absolute Basophils 0.1, PUBS MCHC 32.8 L 05/13/16 1310: Troponin I < 0.01 05/13/16 0735: Anion Gap 9, Estimated GFR > 60, BUN/Creatinine Ratio 20.0, CBC w Diff NO MAN DIFF REQ, RBC 4.38, MCV 91.8, MCH 30.3, RDW 12.9, MPV 9.3, Gran % 66.5, Lymphocytes % 25.5, Monocytes % 4.4, Eosinophils % 3.1, Basophils % 0.5, Absolute Granulocytes 5.6, Absolute Lymphocytes 2.1, Absolute Monocytes 0.4, Absolute Eosinophils 0.3, Absolute Basophils 0, PUBS MCHC 33.0 Assessment/Plan Assessment/Plan Assessment: 1. Chest pain syndrome 2. Probable exacerbation of COPD 3. History of prior syncope 4. Gastroesophageal reflux disease with no evidence of dysmotility on esophagram 5. History of hyperlipidemia 6. Sleep apnea Plan: * Persantine sestamibi stress test completed. No ischemic EKG changes seen. Nuclear results to follow. * Continue current cardiac medications. * If nuclear stress test shows no significant ischemia, then the patient will be cleared for discharge this afternoon from cardiac standpoint. * Follow up with Dr. Landon. Continue telemetry? Yes
--- NOTE | 2016-05-14 14:53 | IV DIPYRIDAMOLE NUCLEAR STRESS ---
Clinical Diagnosis: Hypertension Hospital Librarian: Gamal Smith IV DIPYRIDAMOLE INFUSED: 59 mg IV AMINOPHYLLINE INFUSED: 0 mg PATIENT WEIGHT: 220 lbs INTERPRETATION: The patient's baseline EKG showed normal sinus rhythm at 57 BPM. Baseline B/P 120/60. The patient received 59 mg of dipyridamole infused intravenously over a 4 minute period. TC-99M or Myoview was injected after dipyridamole infusion. The patient tolerated the infusion well. There was less than 0.[address] depression following pharmacologic infusion. IMPRESSION: The test was supervised by the interpreting Optical Instrument Inspector, who was in attendance during the entire test. No EKG evidence of stress induced myocardial ischemia. See separately dictated Nuclear Report.
--- NOTE | 2016-05-14 14:57 | NUR ---
1430 PT WAS DOWN IN NUCLEAR MEDICINE AND STARTED EXPERIENCING 6/10 CP. MACHINE STACKER CADEN ESCAMILLA AWARE AND WENT DOWN TO ASSESS PT. VSS- BP 120/60, HR 60, O2 91-93% RA. PT PLACED ON 2L NC. THIS RN WENT DOWN TO ASSESS PT AND PUT PT ON MONITOR FOR TRANSPORT BACK TO UNIT. 1445 PT BACK IN ROOM AND ON TELE MONITOR. TROPONIN AND EKG ORDERED AND DONE. NITRO PATCH APPLIED TO PT L UPPER CHEST. PT RESTING COMFORTABLE IN BED. WILL CONTINUE TO MONITOR PT.
--- NOTE | 2016-05-14 15:15 | NUCLEAR MEDICINE REPORT ---
PERSANTINE STRESS AND RESTING SPECT MYOCARDIAL PERFUSION IMAGING STUDY WITH GATED SPECT IMAGES: CLINICAL INDICATION: COPD exacerbation, hypertension. PROCEDURE: Regional myocardial perfusion was assessed using a 1 day protocol. Stress images were obtained on 05/14/2016 following the intravenous administration of 26.6 mCi Tc 99m Myoview. Stress consisted of 59 mg Persantine given intravenously. Following the sestamibi injection no aminophylline was given intravenously. Rest images were obtained 05/14/2016 following the intravenous administration of 41.6 mCi Technetium 99m Myoview. Single photon emission tomographic (SPECT) images were obtained. SPECT images were acquired in a 64 x 64 matrix of 64 projections over 180 degrees. These were reconstructed into standard short axis, horizontal and vertical long axis cardiac projections. FINDINGS: The post stress images show the left ventricular chamber to be normal in size. There is a moderately sized region of moderately decreased activity involving the anterior wall which involves the basilar, mid, and apical segments of the anterior wall. Activity in the other craig appears normal. The rest images show significant improvement in the abnormality in the anterior wall, but mildly decreased activity persists in this region. The other craig are unchanged from the post stress images and appear normal. The images were obtained using a gated SPECT technique, which permits visualization of wall motion and calculation of the left ventricular ejection fraction. The left ventricular chamber is normal in size. No left ventricular wall motion abnormalities are present. The calculated left ventricular ejection fraction is 73% on the stress study. No previous study is available for comparison. IMPRESSION: A moderately sized region of reversible ischemia is present in the anterior wall, as described above. Left ventricular wall motion and ejection fraction are normal.
[2016-05-14 16:22] VITALS: BP 147/66
--- NOTE | 2016-05-14 16:54 | Discharge Summary ---
See Addendum Visit Information Visit Dates Admission Date: 05/08/16 Discharge Date: 05/15/2016 Hospital Course Course Attending Physician: GRIFFIN MEYER MD Primary Care Physician: KENNY STEVENS D.O. Consulting Request: Consulting Specialty: Cardiology Consulting Physician: Hospital Course: is a 50 yo women with a past medical history of former smoker, COPD, obesity, obstructive sleep apnea, bipolar disorder is being evaluated for cough, fever likely from COPD exacerbation. At the time of admission, temperature 99.2, pulse rate 79, respiratory rate 20, blood pressure 153/83, 88% on room air pulse ox which improved to 93% and 97% on 2 L oxygen. Labs indicated WBC 9.3, hemoglobin 14.2, platelets 280, normal electrolytes sodium 142, potassium 3.8, bicarbonate 27, renal function-BUN 13, serum creatinine 0.7, lithium level 0.6, AST 27, ALT 54. Last PFT (2014): Moderate obstructive and restrictive pattern. With significant response to bronchodilators decreased TLC a significant decrease in DLCO. Differential diagnosis: #1 COPD exacerbation Below is the problem list and plan: #1 Cough-likely due to acute exacerbation of COPD. Patient was started on azithromycin. TRC nebs as needed. Required supplemental oxygen-nasal cannula. Pulse ox remained above 92% during the stay on the floor. She was also continued on Symbicort, albuterol. Initially started on Solu-Medrol which were tapered as symptoms improved. Unfortunately, lower respiratory cultures could not be collected. #2 diabetes-she was on basal and short-acting insulin sliding scale. Adequate blood sugar control. #3 bipolar- lithium level-0.6. She was restarted on home dose of lithium. Remained asymptomatic. #4 chest pain-during the stay on the general medicine floor, she developed chest pain for which she was transferred to telemetry for further monitoring. She had a previous admission to [place] for evaluation of syncope(loop recorder in place ), and history of multiple cardiac catheterizations(w/ no clear evidence of CAD) . She was evaluated by a river rafting guide, who recommend Nitroglycerin for chest pain, her been is responsive to nitroglycerin, her troponin remains negative. She underwent nuclear stress test which shows a moderately sized region of reversible ischemia is present in the anterior wall, as described above. Left ventricular wall motion and ejection fraction are normal. Patient had 2 episodes of chest pain last night which respond to nitroglycerin. Today at director of early childhood she again developed chest pain, it's improves after receiving Nitroglycerin but still she had active chest pain about 6/10 in severity, pressure in nature in the middle of the chest. Troponin remains negative. Discussed the case with river rafting guide , he agrees to start IV heparin. Patient is going to be transfer for [facility] for cardiac catheterization, accepting physician is Dr. Baker. Complications: Non Allergies: Coded Allergies: codeine (Severe, ITCH 08/09/15) lemon (Severe, SOB 08/09/15) propranolol (Severe, SHOCK PER PT 08/09/15) Disposition Summary Disposition Principal Diagnosis: 1. Chest pain syndrome 2. Exacerbation of COPD 3. History of prior syncope 4. Gastroesophageal reflux disease with no evidence of dysmotility on esophagram 5. History of hyperlipidemia 6. Sleep apnea Additional Diagnosis: As above Discharge Disposition: other general hospital Discharge Instructions General Discharge Information Code Status: Do Not Resucitate Patient's Diet: Diabetic/ heart healthy diet Patient's Activity: As tolerated Follow-Up Instructions/Appts: -Follow up with your river rafting guide after discharge -Follow up with your PCP 1 week after discharge -Follow up with your ceramic engineering professor after discharge -Take your medications as prescribed. Medications at Discharge Discharge Medications: Continue taking these medications: Lorenzo Carbonate (Lorenzo Carbonate) 300 MG CAPSULE 1 Capsule ORAL THREE TIMES DAILY Comments: DID NOT RECIEVE IN HOSPITAL Gabapentin (Gabapentin) 600 MG TABLET 1 Tablet ORAL TWICE DAILY Comments: Last Taken: 03/12/16 Time: 9AM Levothyroxine Sodium (Levothyroxine Sodium) 50 MCG TABLET 1 Tablet ORAL DAILY BEFORE BREAKFAST Qty = 30 Comments: Last Taken: 08/12/15 Time: 6:00 AM Aripiprazole (Abilify) 20 MG TABLET 1 Tablet ORAL TAKE AT BEDTIME Comments: Last Taken: 03/11/16 Time: 9PM Atorvastatin Calcium (Lipitor) 40 MG TABLET 1 Tablet ORAL TAKE AT BEDTIME Comments: Last Taken: 03/11/16 Time: 9PM Alprazolam (Xanax) 1 MG TABLET 1 Tablet ORAL THREE TIMES DAILY Comments: PER PT DOSE INCREASE FROM 1MG PO BID TO 1MG PO TID Last Taken: 03/12/16 Time: 9:00 AM Sertraline HCl (Sertraline HCl) 100 MG TABLET 2 Tablet ORAL Every Morning Comments: Last Taken: 03/12/16 Time: 9:00 AM Aspirin (Ecotrin*) 81 MG TABLET. 1 Tablet ORAL Every Morning Comments: Last Taken: 03/12/16 Time: 9:00 AM Folic Acid (Folic Acid) 1 MG TABLET 1 Tablet ORAL Every Morning Comments: DID NOT RECIEVE IN HOSPITAL Carbamazepine (Carbamazepine XR) 400 MG TAB.ER.12H 1 Tablet ORAL TWICE DAILY Comments: Last Taken: 03/12/16 Time: 9:00 AM Colchicine (Colchicine) 0.6 MG TABLET 1 Tablet ORAL DAILY Comments: Last Taken: 03/12/16 Time: 9:00 AM Linaclotide (Linzess) 145 MCG CAPSULE 1 Capsule ORAL Every Morning Comments: DID NOT RECEIVE WHILE IN HOSPITAL Ergocalciferol (Vitamin D2) (Vitamin D2) 50,000 UNIT CAPSULE 1 Capsule ORAL EVERY SATURDAY Comments: DID NOT RECEIVE WHILE IN HOSPITAL Albuterol Sulfate (Proair Hfa) 8.5 GM HFA.AER.AD 1-2 Puff Inhale through mouth EVERY 4-6 HOURS NEEDED as needed for COPD Comments: DID NOT RECEIVE WHILE IN HOSPITAL Budesonide/Formoterol Fumarate (Symbicort 160-4.5 Mcg Inhaler) 10.2 GM HFA.AER.AD 2 Puff Inhale through mouth TWICE DAILY Qty = 10 Comments: Last Taken: 03/12/16 Time: 9:00 AM Ibuprofen (Ibuprofen) 600 MG TABLET 1 Tablet ORAL 4 times daily as needed as needed for PAIN Comments: DID NOT RECIEVE IN HOSPITAL Fluticasone Propionate (Fluticasone Propionate) 16 GM SPRAY.SUSP 2 [place] Both sides of nose DAILY Qty = 16 Comments: Last Taken: 03/12/16 Time: 9AM Pantoprazole Sodium (Protonix) 40 MG TABLET. 1 Tablet ORAL DAILY Comments: DID NOT RECIEVE IN HOSPITAL Metformin HCl (Metformin HCl) 1,000 MG TABLET 1 Tablet ORAL TWICE DAILY Qty = 90 Comments: DID NOT RECIEVE IN HOSPITAL Insulin Glargine,Hum.rec.anlog (Lantus Solostar) 100 UNIT/ML (3 ML) INSULN.PEN 22 Unit Inject into fatty tissue Every night Qty = 15 Comments: DID NOT RECIEVE IN HOSPITAL Fenofibrate Nanocrystallized (Fenofibrate) 145 MG TABLET 1 Tablet ORAL DAILY Qty = 85 Comments: Last Taken: 03/12/16 Time: 9AM Furosemide (Furosemide) 20 MG TABLET 1.5 Tablet ORAL DAILY Qty = 90 Comments: NOT GIVEN IN HOSPITAL Start taking the following new medications: Prednisone (Prednisone) 10 MG TABLET 1 Tablet ORAL TWICE DAILY Qty = 36 No Refills Instructions: TAKE 6 TAB2 FOR 1 DAY THEN TAKE 5 TABS FOR 2 DAYS THEN TAKE 4 TABS FOR 2 DAYS THEN TAKE 3 TABS FOR 2 DAYS THEN TAKE 2 TABS FOR 2 DAYS THEN TAKE 1 TABS FOR 2 DAYS THEN STOP Heparin (Heparin-1/2NS 25,000 Units/500) 25,000 UNIT/500 ML (50 UNIT/ML) IV.SOLN 25,000 Units INTRAVEN EVERY 24 HOURS Qty = 1 No Refills Nitroglycerin (Nitrostat) 0.4 MG TAB.SUBL 1 Tablet SUBLINGUAL As Directed as needed for CHEST PAIN Qty = 25 No Refills Instructions: 1st sign of attack; may repeat every 5 minutes until relief; if pain persists after 3 tablets in 15 minutes, prompt medical att Copies To: GRIFFIN MEYER MD; KENNY STEVENS D.O.; Darrel MOTA MD
[2016-05-14] MEDS ORDERED: NITROSTAT0.4 M1 SL (17:22)
[2016-05-14] MEDS ORDERED: PREDNISONE20 M1 PO (17:22)
[2016-05-14 20:00] VITALS: BP 108/64
[2016-05-14 20:30] VITALS: BP 92/40
--- NOTE | 2016-05-14 21:34 | NUR ---
at 1999, pt c/o 5/10 cp that radiates to her back and up the neck. md saucedo paged and informed. pt givem 0.4mg sl nitro at that time. bp 108/64 hr 57. after 10 minutes, pt c/o nausea and cp relieved to 4/10. bp 92/40 hr 56. md saucedo in to see pt at that time. no other interventions ordered. at 2129, pt c/o 5/10 cp again that radiates to back and up neck. hr 55 bp 120/40. md saucedo paged and informed. will ctm.
[2016-05-14 21:38] VITALS: BP 120/40
[2016-05-14 22:25] VITALS: BP 108/40
[2016-05-15 06:17] VITALS: BP 102/56
[2016-05-15 06:28] VITALS: BP 116/60
--- NOTE | 2016-05-15 07:41 | NUR ---
AT 0600, PT CALLED THIS RN INTO THE ROOM AFTER RETURNING FROM THE BATHROOM. C/O 9/10 CP RADIATING TO THE BACK AND NECK. THE PAIN HAD NEVER LEFT ALL NIGHT BUT THIS WAS SHARPER THAN NORMAL. PT GRABBING AT CHEST AND SAYING "CMON GO AWAY ALREADY". CORPORATE COUNSEL FRANK PAGED AND INFORMED. VS 102/56 HR 61 SAT 99% ON 2LNC. 1X NITRO 0.4MG SL GIVEN. STAT EKG AND BLOOD WORK COMPLETED. TEN MINUTES PASSED AND WITH NO RELIEF. CORPORATE COUNSEL TIMR AWARE AND CAMEUP TO SPEAK TO PT AND CHECK EKG. NO FURTHER INTERVENTIONS ORDERED. EMOTIONAL SUPPORT GIVEN TO PT AT THIS TIME. WILL PASS ONTO MORNING RN.
[2016-05-15 07:45] VITALS: BP 130/66
[2016-05-15 07:52] LABS: ABSOLUTE BASOPHIL COUNT 0 /CUMM (0.0-0.2); ABSOLUTE EOSINOPHIL COUNT 0.4 /CUMM (0.0-0.7); ABSOLUTE GRANULOCYTE CT 5.1 /CUMM (1.4-6.5); ABSOLUTE LYMPH COUNT 2.8 /CUMM (1.2-3.4); ABSOLUTE MONOCYTE COUNT 0.4 /CUMM (0.10-0.60); BASOPHIL % 0.5 % (0.0-2.0); EOSINOPHIL % 4.3 % (0-5); GRANULOCYTE % 58.9 % (42.2-75.2); HEMATOCRIT 40.7 % (37-47); MEAN CORPUSCULAR HGB 30.5 PG (27.0-31.0); MEAN CORPUSCULAR HGB CONC 32.9 G/DL (33.0-37.0); MEAN CORPUSCULAR VOLUME 92.7 FL (81.0-99.0); MEAN PLATELET VOLUME 9.6 FL (7.4-10.4); PLATELET COUNT 289 /CUMM (130-400); RBC DISTRIBUTION WIDTH 13.2 % (11.5-14.5); WHITE BLOOD CELL COUNT 8.7 /CUMM (4.8-10.8)
[2016-05-15 08:14] VITALS: BP 122/74
--- NOTE | 2016-05-15 08:20 | Event Note ---
Event Note Event Note: Patient had 2 episodes of chest pain last night which respond to nitroglycerin. Today at chemical processing technician she again developed chest pain, it's improves after receiving Nitroglycerin but still she had active chest pain about 6/10 in severity, pressure in nature in the middle of the chest. Troponin remains negative. Discussed the case with plastic surgery specialist , he agrees to start IV heparin.
--- NOTE | 2016-05-15 09:49 | PN- Housestaff ---
IGNACIO ZUNIGA,[facility] 05/15/16 0948: Subjective Follow-up For: COPD exacerbation Chest pain Tele-Events Since Last Visit: Sinus Prodigy, sinus rhythm Heart rate 58-62 First-degree heart block IN 0.22 No events Subjective: Patient was seen and examined this morning. She appears in mild distress due to chest pain as if someone were compressing her chest. Overnight she has had a chest pain of 4-5/10 intensity. Reduced after one sublingual nitroglycerin but was never pain free. This morning she apparently woke up at 6am with chest pain of 9/10 which reduced to 8/10 after sublingual nitroglycerin. Her vitals at the time were stable with IN 59, BP 116/60, RR 22 with 99% sat on 2L O2. She was given another sublingual nitroglycerin at 7:20 am because of persistent chest pain associated with nausea and diaphoresis. ECG showed no acute changes and trop levels were serially negative. She is currently on 2L O2. Heparin drip was started with 5000 heparin bolus Review of Systems Constitutional: Denies: see HPI. Objective Last 24 Hrs of Vital Signs/I&O Vital Signs Date Time Temp Pulse Resp B/P Pulse O2 O2 Flow FiO2 Ox Delivery Rate 05/15 1031 59 134/76 05/15 1011 59 18 136/76 05/15 0814 56 122/74 05/15 0807 96 Nasal 2.0L Cannula 05/15 0800 98 Nasal 2.0L Cannula 05/15 0745 97.6 61 20 130/66 98 Nasal 2.0L Cannula 05/15 0628 59 116/60 05/15 0617 61 22 102/56 99 Nasal 2.0L Cannula 05/15 0007 58 98 05/15 0000 92 BIPAP 05/14 2232 58 98 05/14 2225 98.7 59 22 108/40 96 Nasal 2.0L Cannula 05/14 2138 55 120/40 05/14 2030 56 92/40 05/14 2000 57 108/64 Intake & Output 05/15 1600 05/15 0800 05/15 0000 Intake Total 50 1185 Output Total Balance 50 1185 Intake, Oral 50 1185 Patient 103.476 kg Weight Physical Exam General Appearance: Alert, Oriented X3, Cooperative, Mild Distress Skin: No Rashes, No Breakdown, No Significant Lesion Cardiovascular: Regular Rate, Normal S1, Normal S2, No Murmurs Lungs: Clear to Auscultation, Normal Air Movement Abdomen: Normal Bowel Sounds, Soft, No Tenderness Neurological: Normal Gait, Normal Speech, Strength at 5/5 X4 Ext, Normal Tone, Sensation Intact, Cranial Nerves 3-12 NL, Reflexes 2+ Extremities: No Clubbing, No Cyanosis, No Edema Assessment/Plan Assessment: She is a middle-aged woman with a past medical history of former smoker, COPD, obesity, obstructive sleep apnea, bipolar disorder is being evaluated for cough, fever likely from COPD exacerbation. Legionella and strep pneumo antigen negative 05/09/2016. Recent echocardiogram showed ejection fraction of above 65%, with small pericardial effusion. Patient developed SOB and lightheadedness upon admission, with 10/10 midsternal chest pain. Since she had a history of two cardiac catheterizations w/ no clear history of coronary heart disease- cardiac etiology was in the differentials. Patient was transferred to [facility] for monitoring and to rule out ACS. Differential diagnosis: 1- COPD exacerbation 2- Chest pain, rule out ACS Plan: 1- COPD exacerbation -Patient was admitted with CC of cough, fever-likely due to acute exacerbation of COPD. -Patient finished 5v days course of azithromycin on 05/13 -[facility] nebs -Oxygen nasal cannula to keep oxygen saturation above 92% -Continue Symbicort twice daily -Pulmonary consultation was obtained, thanks for the recommendation -Swtich IV Solu-Medrol to PO predinsone 60 mg daily -Sputum culture pending 2- chest pain to rule out ACS -Serial troponin and EKG has been negative -Cardiology was also consulted. -Esophagogram ordered Mild gastroesophageal reflux into the distal esophagus. Otherwise unremarkable exam. No evidence of esophageal dysmotility. -Continue PPI -Pateient had the nuclear stress test today, results showed moderately sized region of reversible ischemia is present in the anterior wall, as described above. Left ventricular wall motion and ejection fraction are normal. -Patient will be transferred to cardiac cath this morning per Dr. Shelby -The patient's integrated circuit fabricator was called for records, the previous 2 cardic cath results are within normal 3- diabetes-insulin sliding scale. -levemir 22 units sialy at bedtime -Novolog SS 4- bipolar disorder-continue lithium. DVT proph. lovonex Diet CCH 2 Code DNR/DNI Problem List: 1. CHEST PAIN 2. COPD exacerbation Pain Ratin Pain Location: chest pain Pain Goal: Remain pain free Pain Plan: Nitroglycerin sublingual tab Tomorrow's Labs & Rationales: none Consulting Request: Consulting Specialty: Cardiology Consulting Physician: Dr.Pearson BETSY ZUNIGA,[facility] 05/15/16 2307: Attending MD Review Statement Attending Statement Attending MD Statement: examined this patient, discuss w/resident/PA/SOLAR SALES REPRESENTATIVE AND ASSESSOR, agreed w/resident/PA/SOLAR SALES REPRESENTATIVE AND ASSESSOR, reviewed EMR data (avail), discussed with nursing, discussed with case mgmt, amended to note Attending Assessment/Plan: The patient was seen and discussed with house staff. Agree with plan of care as outlined. Appreciate cardiology input.
[2016-05-15 09:57] LABS: PT 11.6 SEC (9.4-12.5)
[2016-05-15 10:02] LABS: PTT > 120 SEC (25-37)
[2016-05-15 10:11] VITALS: BP 136/76
[2016-05-15] MEDS ORDERED: PREDNISONE10 M2 PO (10:23)
[2016-05-15] MEDS ORDERED: HEPARIN-1/25000 UNI1 IV (10:30)
[2016-05-15 10:31] VITALS: BP 134/76
--- NOTE | 2016-05-15 11:08 | PN- Pulmonary ---
Subjective HPI/Critical Care Issues: Patient seen and examined this morning. She is afebrile and saturating well her dyspnea is stable however she continues to have chest pain and is awaiting transfer to [facility] for cardiac catheterization. Objective Current Medications: Current Medications Sig/Ralph Start time Last Medication Dose Route Stop Time Status Admin Acetaminophen 650 MG Q6P PRN 05/08 2115 AC 05/10 PO 1314 Albuterol Sulfate 3 ML EVERY 4 HRS/AWAKE 05/09 1200 AC 05/15 INH 0801 Alprazolam 1 MG TID 05/080 AC 05/15 PO 05/15 2159 1032 Aripiprazole 20 MG AT BEDTIME 05/09 2200 AC 05/14 PO 2148 Aspirin Buffered 81 MG QAM 05/09 1000 AC 05/15 PO 1031 Atorvastatin Calcium 40 MG AT BEDTIME 05/090 AC 05/14 PO 2148 Budesonide/ 2 PUF BID 05/08 2200 AC 05/15 Formoterol Fumarate INH 1033 Carbamazepine 400 MG BID 05/09 2200 AC 05/15 PO 1032 Colchicine 600 MCG DAILY 05/09 1000 AC 05/15 PO 1031 Dipyridamole 55 MG ONE ONE 05/14 0900 DC 05/14 Dextrose/Water 29 ML IV 05/16 0059 1237 Enoxaparin Sodium 40 MG DAILY 05/09 1000 DC 05/14 SC 0928 Fenofibrate 145 MG DAILY 05/09 1000 AC 05/15 PO 1031 Fluticasone 2 SPRAY DAILY 05/09 1000 AC 05/15 Propionate TRUMAN 1032 Furosemide 30 MG DAILY 05/09 1000 AC 05/15 PO 1032 Gabapentin 600 MG BID 05/08 2200 AC 05/15 PO 1031 Heparin Sodium 5,000 UNIT ONCE ONE 05/15 0815 DC 05/15 (Porcine) IV 05/15 0816 0810 Heparin Sodium 25,000 UNIT Q24H 05/15 0745 AC 05/15 (Porcine) IV 0810 Sodium Chloride 500 ML Insulin Aspart 0 TIDAC 05/09 0800 AC 05/11 SC 1234 Insulin Detemir 22 UNITS QPM 05/08 2200 AC 05/14 SC 2153 Isosorbide 30 MG DAILY 05/14 1000 AC 05/15 Mononitrate PO 1031 Levothyroxine Sodium 0.05 MG DAILY AC 05/09 0700 AC 05/15 PO 0611 Linaclotide 145 MCG DAILY 05/09 1000 AC 05/13 PO 1000 Turpin Carbonate 300 MG TID 05/08 2200 AC 05/15 PO 1032 Nitroglycerin 0.4 MG ONCE ONE 05/14 2145 DC 05/14 SL 05/14 214 2152 Nitroglycerin 0.4 MG Q6-PRN PRN 05/14 1715 AC 05/15 SL 1012 Nitroglycerin 0.4 MG ONCE ONE 05/14 1600 DC 05/14 SL 05/14 1601 1610 Nitroglycerin 0.4 MG DAILY 05/10 1334 AC 05/15 TOP 1032 Omeprazole 40 MG DAILY AC 05/09 0700 AC 05/15 PO 0611 Prednisone 10 MG DAILY 05/24 1000 AC PO 05/26 0959 Prednisone 20 MG DAILY 05/22 1000 AC PO 05/24 0959 Prednisone 30 MG DAILY 05/20 1000 AC PO 05/22 0959 Prednisone 40 MG DAILY 05/18 1000 AC PO 05/20 0959 Prednisone 50 MG DAILY 05/16 1000 AC PO 05/18 0959 Prednisone 60 MG DAILY 05/14 1000 AC 05/15 PO 05/16 0959 1031 Sertraline HCl 200 MG QAM 05/09 1000 AC 05/15 PO 1032 Vital Signs & I&O Last 24 Hrs of Vitals and I&O: Vital Signs Date Time Temp Pulse Resp B/P Pulse O2 O2 Flow FiO2 Ox Delivery Rate 05/15 1031 59 134/76 05/15 1011 59 18 136/76 05/15 0814 56 122/74 05/15 0807 96 Nasal 2.0L Cannula 05/15 0800 98 Nasal 2.0L Cannula 05/15 0745 97.6 61 20 130/66 98 Nasal 2.0L Cannula 05/15 0628 59 116/60 05/15 0617 61 22 102/56 99 Nasal 2.0L Cannula 05/15 0007 58 98 05/15 0000 92 BIPAP 05/14 2231 58 98 05/14 2224 98.7 59 22 108/40 96 Nasal 2.0L Cannula 05/14 2138 55 120/40 05/14 2030 56 92/40 05/14 2000 57 108/64 05/14 1710 97 Nasal 2.0L Cannula 05/14 1622 98.1 67 18 147/66 96 Room Air 05/14 1237 57 112/52 Intake & Output 05/15 1600 05/15 0800 05/15 0000 Intake Total 50 1185 Output Total Balance 50 1185 Intake, Oral 50 1185 Patient 228 lb Weight Exam Other Physical Findings: General - Alert, awake and oriented HEENT - normocephalic, atraumatic Cardiovascular - S1, S2, systolic murmur Lungs - rare rhonchi bilaterally Abdomen - obese, soft, bowel sounds positive, no tenderness Extremities - without edema or cyanosis Results Last 24 Hrs of Lab Results: Laboratory Tests 05/15/16 0855: Creatine Kinase < 20 L 05/15/16 0825: PT 11.6, INR 1.11, APTT > 120 *H 05/15/16 0635: CBC w Diff NO MAN DIFF REQ, RBC 4.40, MCV 92.7, MCH 30.5, RDW 13.2, MPV 9.6, Gran % 58.9, Lymphocytes % 31.9, Monocytes % 4.4, Eosinophils % 4.3, Basophils % 0.5, Absolute Granulocytes 5.1, Absolute Lymphocytes 2.8, Absolute Monocytes 0.4 , Absolute Eosinophils 0.4, Absolute Basophils 0, PUBS MCHC 32.9 L 05/15/16 0624: Anion Gap 11, Estimated GFR > 60, BUN/Creatinine Ratio 24.3, Troponin I < 0.01 05/14/16 2210: Troponin I < 0.01 05/14/16 1504: Troponin I < 0.01 Impression/Plan Impression/Plan Impression/Plan: Impression 50-year-old woman with a history of COPD and obstructive sleep apnea with an exacerbation of COPD likely secondary to viral bronchitis. Bradycardia/chest discomfort subsided. Plan -Steroid taper as ordered -cardiology follow up, plan for transfer to [facility] for cardiac catheterization -Nocturnal CPAP -TRC and nebs -Continue home inhalers -DVT prophylaxis at all times Recommendations: Saúl Ring M.D. have examined this patient, reviewed available EMR data, personally reviewed images, discussed with resident/PA/CAR DESIGNER, discussed management plan with housestaff and nursing staff, discussed managment plan all of healthcare providers, discussed management plan with patient and/or family, agreed with resident/PA/CAR DESIGNER. The past history and parts of the chart have been autopopulated. taper steroids stress test today Code Status: Full coed
--- NOTE | 2016-05-15 12:16 | PN- Pulmonary ---
Subjective HPI/Critical Care Issues: Patient seen and examined. + chest pain, at respiratory baseline. No nausea, vomiting, diarrhea or constipation. Afebrile and hemodynamically stable. Objective Current Medications: Current Medications Sig/Ralph Start time Last Medication Dose Route Stop Time Status Admin Acetaminophen 650 MG Q6P PRN 05/08 2114 DCD 05/10 PO 1314 Albuterol Sulfate 3 ML EVERY 4 HRS/AWAKE 05/09 1200 DCD 05/15 INH 0801 Alprazolam 1 MG TID 05/08 2199 DCD 05/15 PO 05/15 2159 1032 Aripiprazole 20 MG AT BEDTIME 05/09 2199 DCD 05/14 PO 2148 Aspirin Buffered 81 MG QAM 05/09 1000 DCD 05/15 PO 1031 Atorvastatin Calcium 40 MG AT BEDTIME 05/09 2199 DCD 05/14 PO 2148 Budesonide/ 2 PUF BID 05/08 2199 DCD 05/15 Formoterol Fumarate INH 1033 Carbamazepine 400 MG BID 05/09 2199 DCD 05/15 PO 1032 Colchicine 600 MCG DAILY 05/09 1000 DCD 05/15 PO 1031 Dipyridamole 55 MG ONE ONE 05/14 0900 DC 05/14 Dextrose/Water 29 ML IV 05/16 0059 1237 Enoxaparin Sodium 40 MG DAILY 05/09 1000 DC 05/14 SC 0928 Fenofibrate 145 MG DAILY 05/09 1000 DCD 05/15 PO 1031 Fluticasone 2 SPRAY DAILY 05/09 1000 DCD 05/15 Propionate TRUMAN 1032 Furosemide 30 MG DAILY 05/09 1000 DCD 05/15 PO 1032 Gabapentin 600 MG BID 05/08 2199 DCD 05/15 PO 1031 Heparin Sodium 5,000 UNIT ONCE ONE 05/15 0815 DC 05/15 (Porcine) IV 05/15 0816 0810 Heparin Sodium 25,000 UNIT Q24H 05/15 0745 DCD 05/15 (Porcine) IV 0810 Sodium Chloride 500 ML Insulin Aspart 0 TIDAC 05/09 08 DCD 05/11 SC 1234 Insulin Detemir 22 UNITS QPM 05/08 2199 DCD 05/14 SC 2153 Isosorbide 30 MG DAILY 05/14 1000 DCD 05/15 Mononitrate PO 1031 Levothyroxine Sodium 0.05 MG DAILY AC 05/09 0700 DCD 05/15 PO 0611 Linaclotide 145 MCG DAILY 05/09 1000 DCD 05/13 PO 1000 [place] Carbonate 300 MG TID 05/08 2200 DCD 05/15 PO 1032 Nitroglycerin 0.4 MG ONCE ONE 05/14 2145 DC 05/14 SL 05/14 2146 2152 Nitroglycerin 0.4 MG Q6-PRN PRN 05/14 1715 DCD 05/15 SL 1012 Nitroglycerin 0.4 MG ONCE ONE 05/14 1600 DC 05/14 SL 05/14 1601 1610 Nitroglycerin 0.4 MG DAILY 05/10 1334 DCD 05/15 TOP 1032 Omeprazole 40 MG DAILY AC 05/09 0700 DCD 05/15 PO 0611 Prednisone 10 MG DAILY 05/24 1000 DCD PO 05/26 0959 Prednisone 20 MG DAILY 05/22 1000 DCD PO 05/24 0959 Prednisone 30 MG DAILY 05/20 1000 DCD PO 05/22 0959 Prednisone 40 MG DAILY 05/18 1000 DCD PO 05/20 0959 Prednisone 50 MG DAILY 05/16 1000 DCD PO 05/18 0959 Prednisone 60 MG DAILY 05/14 1000 DCD 05/15 PO 05/16 0959 1031 Sertraline HCl 200 MG QAM 05/09 1000 DCD 05/15 PO 1032 Vital Signs & I&O Last 24 Hrs of Vitals and I&O: Vital Signs Date Time Temp Pulse Resp B/P Pulse O2 O2 Flow FiO2 Ox Delivery Rate 05/15 1031 59 134/76 05/15 1011 59 18 136/76 05/15 0814 56 122/74 05/15 0807 96 Nasal 2.0L Cannula 05/15 0800 98 Nasal 2.0L Cannula 05/15 0745 97.6 61 20 130/66 98 Nasal 2.0L Cannula 05/15 0628 59 116/60 05/15 0617 61 22 102/56 99 Nasal 2.0L Cannula 05/15 0007 58 98 05/15 0000 92 BIPAP 05/14 2231 58 98 05/145 98.7 59 22 108/40 96 Nasal 2.0L Cannula 05/148 55 120/40 05/14 2030 56 92/40 05/14 2000 57 108/64 05/14 1710 97 Nasal 2.0L Cannula 05/14 1622 98.1 67 18 147/66 96 Room Air 05/14 1237 57 112/52 Intake & Output 05/15 1600 05/15 0800 05/15 0000 Intake Total 50 1185 Output Total Balance 50 1185 Intake, Oral 50 1185 Patient 228 lb Weight Exam Other Physical Findings: General - Alert, awake and oriented HEENT - normocephalic, atraumatic Cardiovascular - S1, S2 Lungs - rare rhonchi Abdomen - obese, soft, bowel sounds positive, no tenderness Extremities - without edema or cyanosis Results Last 24 Hrs of Lab Results: Laboratory Tests 05/15/16 0855: Creatine Kinase < 20 L 05/15/16 0825: PT 11.6, INR 1.11, APTT > 120 *H 05/15/16 0635: CBC w Diff NO MAN DIFF REQ, RBC 4.40, MCV 92.7, MCH 30.5, RDW 13.2, MPV 9.6, Gran % 58.9, Lymphocytes % 31.9, Monocytes % 4.4, Eosinophils % 4.3, Basophils % 0.5, Absolute Granulocytes 5.1, Absolute Lymphocytes 2.8, Absolute Monocytes 0.4 , Absolute Eosinophils 0.4, Absolute Basophils 0, PUBS MCHC 32.9 L 05/15/16 0624: Anion Gap 11, Estimated GFR > 60, BUN/Creatinine Ratio 24.3, Troponin I < 0.01 05/14/16 2210: Troponin I < 0.01 05/14/16 1504: Troponin I < 0.01 Impression/Plan Impression/Plan Impression/Plan: Impression 50-year-old woman with a history of COPD and obstructive sleep apnea with an exacerbation of COPD likely secondary to viral bronchitis. Bradycardia/chest discomfort subsided. Plan -Steroid taper as ordered -cardiology follow up, plan for transfer to [facility] for cardiac catheterization -Nocturnal CPAP -TRC and nebs -Continue home inhalers -DVT prophylaxis at all times Recommendations: Saúl Ring M.D. have examined this patient, reviewed available EMR data, personally reviewed images, discussed with resident/PA/SENIOR UI DESIGNER, discussed management plan with housestaff and nursing staff, discussed managment plan all of healthcare providers, discussed management plan with patient and/or family, agreed with resident/PA/SENIOR UI DESIGNER. The past history and parts of the chart have been autopopulated. taper steroids stress test today Code Status: Full coed
--- NOTE | 2016-05-15 12:51 | PN- Cardiology ---
Subjective Subjective: The patient was noted to have chest pressure overnight responded to nitroglycerin. The pressure was 8 out of 10, located in the substernal area without radiation. The discomfort was nonexertional. She has continued to have intermittent discomfort this morning which has been a 3 out of 10. Shortness of breath is improved. No palpitations. No diaphoresis. No lightheadedness or dizziness. No nausea or vomiting. Objective Vital Signs and I&Os Vital Signs Date Time Temp Pulse Resp B/P Pulse O2 O2 Flow FiO2 Ox Delivery Rate 05/15 1031 59 134/76 05/15 1011 59 18 136/76 05/15 0814 56 122/74 05/15 0807 96 Nasal 2.0L Cannula 05/15 0800 98 Nasal 2.0L Cannula 05/15 0745 97.6 61 20 130/66 98 Nasal 2.0L Cannula 05/15 0628 59 116/60 05/15 0617 61 22 102/56 99 Nasal 2.0L Cannula 05/15 0007 58 98 05/15 0000 92 BIPAP 05/14 2232 58 98 05/14 2225 98.7 59 22 108/40 96 Nasal 2.0L Cannula 05/14 2138 55 120/40 05/14 2030 56 92/40 05/14 2000 57 108/64 05/14 1710 97 Nasal 2.0L Cannula 05/14 1622 98.1 67 18 147/66 96 Room Air Intake & Output 05/15 1600 05/15 0800 05/15 0000 05/14 1600 05/14 0800 05/14 0000 Intake Total 50 1185 311 100 240 Output Total 400 Balance 50 1185 311 -300 240 Intake, IV 11 Intake, Oral 50 1185 300 100 240 Number 1 Bowel Movements Output, Urine 400 Patient 228 lb Weight Physical Exam: General Exam: AAOx3, No acute distress, Skin: No rashes, no breakdown HEENT: Normal Neck: Supple, JVP normal, carotid up stroke is normal bilaterally with no bruits CVS: Reg Rate, Normal S1,S2, distant heart sounds, 1/6 systolic murmur left sternal border Resp: Normal air entry, bilateral ronchi Abdomen: Soft, No tenderness, Normal Bowel Sounds Neuro: Nonfocal Extremities: No cyanosis, pedal edema Current Medications: Current Medications Sig/Ralph Start time Last Medication Dose Route Stop Time Status Admin Acetaminophen 650 MG Q6P PRN 05/08 2115 DCD 05/10 PO 1314 Albuterol Sulfate 3 ML EVERY 4 HRS/AWAKE 05/09 1200 DCD 05/15 INH 0801 Alprazolam 1 MG TID 05/08 2200 DCD 05/15 PO 05/15 2159 1032 Aripiprazole 20 MG AT BEDTIME 05/090 DCD 05/14 PO 2148 Aspirin Buffered 81 MG QAM 05/09 1000 DCD 05/15 PO 1031 Atorvastatin Calcium 40 MG AT BEDTIME 05/09 2199 DCD 05/14 PO 2148 Budesonide/ 2 PUF BID 05/08 2199 DCD 05/15 Formoterol Fumarate INH 1033 Carbamazepine 400 MG BID 05/09 2200 DCD 05/15 PO 1032 Colchicine 600 MCG DAILY 05/09 1000 DCD 05/15 PO 1031 Dipyridamole 55 MG ONE ONE 05/14 0900 DC 05/14 Dextrose/Water 29 ML IV 05/16 0059 1237 Enoxaparin Sodium 40 MG DAILY 05/09 1000 DC 05/14 SC 0928 Fenofibrate 145 MG DAILY 05/09 1000 DCD 05/15 PO 1031 Fluticasone 2 SPRAY DAILY 05/09 1000 DCD 05/15 Propionate TRUMAN 1032 Furosemide 30 MG DAILY 05/09 1000 DCD 05/15 PO 1032 Gabapentin 600 MG BID 05/08 220 DCD 05/15 PO 1031 Heparin Sodium 5,000 UNIT ONCE ONE 05/15 0815 DC 05/15 (Porcine) IV 05/15 0816 0810 Heparin Sodium 25,000 UNIT Q24H 05/15 0745 DCD 05/15 (Porcine) IV 0810 Sodium Chloride 500 ML Insulin Aspart 0 TIDAC 05/09 0800 DCD 05/11 SC 1234 Insulin Detemir 22 UNITS QPM 05/08 2200 DCD 05/14 SC 2153 Isosorbide 30 MG DAILY 05/14 1000 DCD 05/15 Mononitrate PO 1031 Levothyroxine Sodium 0.05 MG DAILY AC 05/09 0700 DCD 05/15 PO 0611 Linaclotide 145 MCG DAILY 05/09 1000 DCD 05/13 PO 1000 [place] Carbonate 300 MG TID 05/08 2200 DCD 05/15 PO 1032 Nitroglycerin 0.4 MG ONCE ONE 05/145 DC 05/14 SL 01/23 2146 2152 Nitroglycerin 0.4 MG Q6-PRN PRN 05/14 1715 DCD 05/15 SL 1012 Nitroglycerin 0.4 MG ONCE ONE 05/14 1600 DC 05/14 SL 05/14 1601 1610 Nitroglycerin 0.4 MG DAILY 05/10 1334 DCD 05/15 TOP 1032 Omeprazole 40 MG DAILY AC 05/09 0700 DCD 05/15 PO 0611 Prednisone 10 MG DAILY 05/24 1000 DCD PO 05/26 0959 Prednisone 20 MG DAILY 05/22 1000 DCD PO 05/24 0959 Prednisone 30 MG DAILY 05/20 1000 DCD PO 05/22 0959 Prednisone 40 MG DAILY 05/18 1000 DCD PO 05/20 0959 Prednisone 50 MG DAILY 05/16 1000 DCD PO 05/18 0959 Prednisone 60 MG DAILY 05/14 1000 DCD 05/15 PO 05/16 0959 1031 Sertraline HCl 200 MG QAM 05/09 1000 DCD 05/15 PO 1032 Results Last 48 Hrs of Labs/Mics: Laboratory Tests 05/15/16 0855: Creatine Kinase < 20 L 05/15/16 0825: PT 11.6, INR 1.11, APTT > 120 *H 05/15/16 0635: CBC w Diff NO MAN DIFF REQ, RBC 4.40, MCV 92.7, MCH 30.5, RDW 13.2, MPV 9.6, Gran % 58.9, Lymphocytes % 31.9, Monocytes % 4.4, Eosinophils % 4.3, Basophils % 0.5, Absolute Granulocytes 5.1, Absolute Lymphocytes 2.8, Absolute Monocytes 0.4 , Absolute Eosinophils 0.4, Absolute Basophils 0, PUBS MCHC 32.9 L 05/15/16 0624: Anion Gap 11, Estimated GFR > 60, BUN/Creatinine Ratio 24.3, Troponin I < 0.01 05/14/16 2210: Troponin I < 0.01 05/14/16 1504: Troponin I < 0.01 05/14/16 0741: Anion Gap 11, Estimated GFR > 60, BUN/Creatinine Ratio 22.9, CBC w Diff NO MAN DIFF REQ, RBC 4.21, MCV 91.8, MCH 30.1, RDW 12.9, MPV 9.3, Gran % 64.4, Lymphocytes % 27.4, Monocytes % 4.2, Eosinophils % 3.4, Basophils % 0.6, Absolute Granulocytes 6.0, Absolute Lymphocytes 2.5, Absolute Monocytes 0.4, Absolute Eosinophils 0.3, Absolute Basophils 0.1, PUBS MCHC 32.8 L 05/13/16 1310: Troponin I < 0.01 Recent Imaging Studies: Persantine sestamibi stress test: A moderately sized region of reversible ischemia is present in the anterior wall, as described above. Left ventricular wall motion and ejection fraction are normal. Assessment/Plan Assessment/Plan Assessment: 1. Chest pain with abnormal nuclear stress test. Likely unstable angina. 2. Probable exacerbation of COPD 3. History of prior syncope cardiac catheterization 4. Gastroesophageal reflux disease with no evidence of dysmotility on esophagram 5. History of hyperlipidemia 6. Sleep apnea Plan: * Transfer to [facility] for cardiac catheterization with Dr. Baker * Continue current cardiac medications pending results of catheterization Continue telemetry? Yes
== END 2016-05-15 11:00 | disposition short-term general hospital (02) | DRG 190 ==
LOC: ENRESERVDT → ENRESERVTM → ERH 14:20 → 2NB 18:44 → 1NO 18:44 → ERHI 18:44 → ENPENDDIS 18:44 → 2NB 22:10 → 1NO 05-10 14:30
PROVIDERS: Internal Medicine Endocrinology, Diabetes & Metabolism; Internal Medicine Hematology & Oncology; Ophthalmology; Physician Assistant; Student in an Organized Health Care Education/Training Program; ADMIT Student in an Organized Health Care Education/Training Program
PROC: 3E073KZ Introduction of Other Diagnostic Substance into Coronary Artery, Percutaneous Approach (ICD-10-PCS; principal; 2016-05-14)
PROC: 4A12XM4 Monitoring of Cardiac Stress, External Approach (ICD-10-PCS; principal; 2016-05-14)
DX: J44.1 Chronic obstructive pulmonary disease with (acute) exacerbation (principal); J96.21 Acute and chronic respiratory failure with hypoxia; Z68.41 Body mass index [BMI] 40.0-44.9, adult; E66.01 Morbid (severe) obesity due to excess calories; I20.0 Unstable angina; J20.8 Acute bronchitis due to other specified organisms; Z87.891 Personal history of nicotine dependence; F31.9 Bipolar disorder, unspecified; F43.10 Post-traumatic stress disorder, unspecified; I10 Essential (primary) hypertension; E78.5 Hyperlipidemia, unspecified; G47.33 Obstructive sleep apnea (adult) (pediatric); E11.9 Type 2 diabetes mellitus without complications; K21.9 Gastro-esophageal reflux disease without esophagitis
CPT/HCPCS: 1NSP; 2NBSP; 36415; 74220; 78452; 82436; 87070; 87449; 87450; 87804; 87804-59; 93005; 93010; 93016; 93017; 93306; 96374; A9502; J0401; J0456; J0696; J1245; J1644; J1650; J1815; J2270; J2920; J2930; J3490; J7060

== ENCOUNTER 2016-07-12 15:41 | Inpatient (IN) | payer OTHER, MEDICARE ==
[~2016-07-12] VITALS: Ht 157.5 cm; Wt 102.1 kg
[~2016-07-12 15:41] MED LIST changes: +HEPARIN-1/25000 UNI1 IV; +NITROSTAT0.4 M1 SL; +PREDNISONE20 M1 PO; +ZITHROMAX500 M2 PO
--- NOTE | 2016-07-12 15:52 | NUR ---
PT STATES SHE WANTS TO HURT HERSELF AND STATES SHE TOOK A HAND FULL OF LITHIUM AND ZOLOFT WITH A COUPLE OF XANAX AND METFORMIN AND 22U UNITS OF LANTIS. PT DENIES HI. PT HAS NOT BEEN TAKING ANY OF HER MEDS FOR THE PAST 2 WEEKS. DENIES ETOH OR DRUG USE. PT HAS HAD PREV. SUICIDE ATTEMPTS IN THE PAST.
--- NOTE | 2016-07-12 16:05 | NUR ---
PT WANDED BY SECURITY AND CHANGED INTO BLUE SCRUBS. PT FAMILY TAKING HOME VALUABLES. 1 PERSONAL BELONGINGS BAG IN CLOSET.
--- NOTE | 2016-07-12 16:15 | NUR ---
PT AMBULATORY TO ROOM 14 WITH WALKER, SISTER AND ANOTHER FEMALE IN ATTENDANCE. PT STATES SHE IS HERE BECAUSE "I WANT TO ". PT STATES THAT SHE STOPPED TAKING HER MEDICATIONS 2-3 WEEKS AGO AND TODAY TOOK A HANDFUL OF MEDICATIONS IN A SUICIDE ATTEMPT. PT STATES SHE HAS BEEN INPATIENT HERE 2X, LAST BEING OVER 2 YEARS AGO. PT DENIES A PRECIPITATING EVENT TO THE SI, STATES THAT SHE IS DISABLED. PT REPORTS MED HX OF COPD, SLEEP APNEA AND RECENTLY DIAGNOSED DIABETES (JANUARY 2016). PT DENIES SELF HARM BEHAVIOR. PT STATES SHE CHECKS HER GLUCOSE 3X/DAY
--- NOTE | 2016-07-12 17:07 | NUR ---
LABS SENT (BLUE,SST,LAV,WETZEL)
--- NOTE | 2016-07-12 17:14 | ED PSYCHIATRIC COMPLAINT ---
History of Present Illness General Chief Complaint: Psychiatric Related Complaint Stated Complaint: PT IS SI POSTIVE Source: patient, family, old records Exam Limitations: no limitations Allergies Coded Allergies: codeine (Severe, ITCH 08/09/15) lemon (Severe, SOB 08/09/15) propranolol (Severe, SHOCK PER PT 08/09/15) Reconcile Medications Albuterol Sulfate (Proair Hfa) 8.5 GM HFA.AER.AD 1-2 PUF INH Q4-6 PRN PRN COPD (Reported) Alprazolam (Xanax) 1 MG TABLET 1 TAB PO TID ANXIETY (Reported) Aripiprazole (Abilify) 20 MG TABLET 1 TAB PO QHS MENTAL HEALTH (Reported) Aspirin (Ecotrin*) 81 MG TABLET.DR 1 TAB PO QAM HEART/BLOOD (Reported) Atorvastatin Calcium (Lipitor) 40 MG TABLET 1 TAB PO QHS CHOLESTEROL ( Reported) Budesonide/Formoterol Fumarate (Symbicort 160-4.5 Mcg Inhaler) 10.2 GM HFA.AER.AD 2 PUF INH BID COPD (Reported) Carbamazepine (Carbamazepine XR) 400 MG TAB.ER.12H 1 TAB PO BID TRIGEMINAL NEURALGIA (Reported) Colchicine 0.6 MG TABLET 1 TAB PO DAILY PERICARDITIS (Reported) Ergocalciferol (Vitamin D2) (Vitamin D2) 50,000 UNIT CAPSULE 1 CAP PO QTHURS SUPPLEMENT (Reported) Fenofibrate Nanocrystallized (Fenofibrate) 145 MG TABLET 1 TAB PO DAILY CHOLESTEROL/TRIGLYCERIDES (Reported) Fluticasone Propionate 16 GM SPRAY.SUSP 2 SPRAY NASB DAILY ALLERGIES ( Reported) Folic Acid 1 MG TABLET 1 TAB PO QAM SUPPLEMENT (Reported) Furosemide 20 MG TABLET 1.5 TAB PO DAILY FLUID (Reported) Gabapentin 600 MG TABLET 1 TAB PO BID NEUROPATHY (Reported) Ibuprofen 600 MG TABLET 1 TAB PO 4XDP PRN PAIN (Reported) Insulin Glargine,Hum.rec.anlog (Lantus Solostar) 100 UNIT/ML (3 ML) INSULN.PEN 22 UNIT SC QPM DM (Reported) Levothyroxine Sodium 50 MCG TABLET 1 TAB PO DAILY THYROID (Reported) Linaclotide (Linzess) 145 MCG CAPSULE 1 CAP PO QAM CIC (Reported) Hoskins Carbonate 300 MG CAPSULE 1 CAP PO TID DEPRESSION (Reported) Metformin HCl 1,000 MG TABLET 1 TAB PO BID DIABETES (Reported) Nitroglycerin (Nitrostat) 0.4 MG TAB.SUBL 1 TAB SL AD PRN CHEST PAIN 1st sign of attack; may repeat every 5 minutes until relief; if pain persists after 3 tablets in 15 minutes, prompt medical att Pantoprazole Sodium (Protonix) 40 MG TABLET.DR 1 TAB PO DAILY GERD (Reported) Sertraline HCl 100 MG TABLET 2 TAB PO QAM MENTAL HEALTH (Reported) Triage Note: PT STATES SHE WANTS TO HURT HERSELF AND STATES SHE TOOK A HAND FULL OF LITHIUM AND ZOLOFT WITH A COUPLE OF XANAX AND METFORMIN AND 22U UNITS OF LANTIS. PT DENIES HI. PT HAS NOT BEEN TAKING ANY OF HER MEDS FOR THE PAST 2 WEEKS. DENIES ETOH OR DRUG USE. PT HAS HAD PREV. SUICIDE ATTEMPTS IN THE PAST. Triage Nurses Notes Reviewed? yes HPI: 50-year-old female who has a history of anxiety depression and bipolar disorder, presents with her sister and [id number] with suicide attempt. Over the last 2 weeks patient has becoming more and more depressed, she has history of depression and one episode of suicide attempt approximately year and a half ago where she cut her left wrist. Her depression has been getting worse over last few days and she has not taken her medication 2 weeks ago and today at 1:30 PM she took approximately 8 tablets of lithium 300 mg, 8 tablets of Zoloft 100 mg, to metformin tablets at 1000 mg, 4 Xanax tablets at 1 mg and 22 units of subcutaneous Lantus, to 600 mg Motrin in the attempt to take her own life. She also left a suicide note for her sister. Patient's niece came home right after she took these medications and confronted the patient to admitted to taking the medication attempt to kill herself. She was brought here against her will by her family. Patient complains of feeling mildly sleepy and having a headache but otherwise no other complaints. She has a history of depression and was admitted here about a year and half ago. She denies any drug or alcohol use. (ERIKA TOMLINSON) Vital Signs & Intake/Output Vital Signs & Intake/Output Vital Signs Date Time Temp Pulse Resp B/P Pulse O2 O2 Flow FiO2 Ox Delivery Rate 07/13 0858 Room Air 07/13 0810 97.1 65 18 130/72 98 Room Air 07/13 0229 64 98 07/13 0227 94 Room Air 07/129 96.8 65 20 150/69 94 Room Air 07/12 2024 96.8 66 20 144/64 94 Room Air 07/12 1801 98.2 77 20 140/81 93 Room Air 07/12 1551 97.0 76 16 142/83 95 Room Air ED Intake and Output 07/13 0000 07/12 1200 Intake Total 2000 Output Total Balance 2000 Intake, IV 2000 Patient 225 lb Weight Past History Travel History Traveled to [place] past 21 day No Medical History Any Pertinent Medical History? see below for history Neurological: dizziness, peripheral neuropathy, TIA, TRIGEMINAL NEURALGIA NEUROPATHY EENT: NONE Cardiovascular: hyperlipidemia, HIGH TRYGLCERIDES recent cardiac catheterizations were negative for occlusive coronary artery disease PERICARDITIS Respiratory: bronchitis, obstructive sleep apnea, pneumonia, BIPAP Gastrointestinal: ACID REFLUX CONSTIPAT- CHRONIC/IDEOPA ABDOMINAL HERNIA Hepatic: CHOLELITHIASIS CHOLECYSTECTOMY Renal: NONE Musculoskeletal: R ANKLE FX AND REPAIR Psychiatric: anxiety, bipolar disease, depression Endocrine: diabetes, HYPOTHYROIDISM Blood Disorders: NONE Cancer(s): ovarian cancer, [employer]COM[employer]/Reproductive: OVARIAN CA TOTAL HYSTERECTOMY History of MRSA: No History of VRE: No History of CDIFF: No Influenza Vaccine: 02/21/16 Surgical History Surgical History: ABD HERNIA REPAIR X4 HYSTERECTOMY CHOLECYSTECTOMY R ANKLE SX POST FX SARCOMA REMOVAL L LEG Psychosocial History Who do you live with Patient/Self Services at Home None What is your primary language Cymraes Tobacco Use: Current Daily Use Daily Tobacco Use Amount/Type: => 5 Cigarettes daily ETOH Use: denies use Illicit Drug Use: denies illicit drug use Family History Family History, If Any: MOTHER Relation not specified for: *No pertinent family history FH: diabetes mellitus (ERIKA TOMLINSON) Family History Hx Contributory? No (CONRADO BILLS DO) Review of Systems Review of Systems Constitutional: Reports: see HPI. EENTM: Reports: no symptoms. Respiratory: Reports: no symptoms. Cardiovascular: Reports: no symptoms. GI: Reports: no symptoms. Genitourinary: Reports: no symptoms. Musculoskeletal: Reports: no symptoms. Skin: Reports: no symptoms. Neurological/Psychological: Reports: see HPI. Hematologic/Endocrine: Reports: no symptoms. Immunologic/Allergic: Reports: no symptoms. All Other Systems: Reviewed and Negative (ERIKA TOMLINSON) Physical Exam Physical Exam General Appearance: well developed/nourished Respiratory: normal breath sounds, chest non-tender, no respiratory distress Cardiovascular: regular rate/rhythm Neurological/Psychiatric: no motor/sensory deficits, awake, alert, calm, flat Appearance/Memory/Insight: appropriate appearance, impaired insight Behavoir/Eye Contact/Speech: cooperative, good eye contact Thoughts/Hallucinations: no apparent hallucination Comments: Well-developed well-nourished no apparent distress. HEENT: Atraumatic, extraocular motion intact Neck: Supple, no lymphadenopathy Back: Nontender Respiratory: No respiratory distress Extremities: No edema, full range of motion Neuro: Alert and oriented x3 Skin: Warm and dry, no rash on exposed skin (ERIKA TOMLINSON) SAD PERSONS Done? unobtained due to conditi (NEGAR BOWENS,CONRADO Foster) Progress Differential Diagnosis: dementia, drug intoxication, drug overdose, drug withdrawal, electrolyte abnormality, encephalitis, hypoglycemia, hypothyroidism, IC hem/mass/tumor, meningitis Initial ED EKG: NSR, rate (75), no ST T wave changes Prior EKG: unchanged Rhythm Strip: normal sinus rhythm Comments: Patient with suspected overdose, most concerned about lithium. Levels drawn, patient is awake and alert, IV fluids started. Discussed with was in control at 1800 hrs. lithium level at 1.5. Other labs are not significant week concerning. Also need to monitor for serotonin syndrome due to the Zoloft. Poison control recommends to 2 hour lithium level until peak and then monitor until trending downward and blood sugar every hour due to the metformin and Lantus. Currently lithium level is 1.5, if over 4 patient may need emergent dialysis. I'll discuss this with nephrology. Case discussed with Dr. Bills as well, I notified the patient that she'll be admitted to the hospital, she is agreeable with plan. IV fluids will be continued. renetta Morrissey. rec ivf and to follow lithium levels. no need for urgent dialysis at this time -1839. Repeat lithium level is 1.2, lower than initial, no need for further testing or emergent dialysis. Patient will continue to be monitored regarding her blood sugar and she'll be admitted to the hospital for medical reasons and will require a psychiatric consult (ERIKA TOMLINSON) Plan of Care: Orders Procedure Date/time Status Clear Liquid Diet 07/13 B Active Transfer patient to 03/24 0925 Active RT: Evaluation 07/13 0858 Active TROPONIN LEVEL 07/13 0600 Complete CBC WITHOUT DIFFERENTIAL 07/13 0600 Complete BASIC ELECTROLYTES PLUS BUN&CR 07/13 0600 Complete EKG 07/13 0600 Active BIPAP 07/13 0233 Complete LITHIUM 07/13 0200 Complete Teach/Educate 07/13 0122 Active Pain Treatment and Response 07/13 0122 Active Nutritional Intake, Monitor 07/13 012 Active Isolation 07/13 012 Active Patient Care Conference 07/13 0122 Active TROPONIN LEVEL 07/13 0100 Complete EKG 07/13 0100 Active THERAPIST ORDERS 07/13 UNK Complete Discontinue Telemetry/Monitor 07/13 UNK Active Pathway - chart 07/12 2234 Active House Staff 07/12 2234 Active Patient Data 07/12 2234 Active Code Status 07/12 2234 Active OXYGEN SETUP (GEN) 07/12 2029 Complete Saline Lock 07/12 2029 Active Admit to inpatient 07/12 2030 Active Vital Signs 07/12 2030 Active Activity/Ambulation 07/12 2029 Active Code Status 07/12 2029 Complete Patient Data 07/12 2028 Active TROPONIN LEVEL 07/12 193 Complete LITHIUM 07/12 1935 Complete GLUCOSE 07/12 1935 Complete BASIC ELECTROLYTES PLUS BUN&CR 07/12 1900 Complete FingerStick- Glucose 07/12 1848 Active Intake & Output 07/12 1711 Active Telemetry/Slag Skimmer 07/12 1657 Complete ACETOMINOPHEN 07/12 1657 Complete SALICYLATE 07/12 1657 Complete SERUM OSMOLALITY 07/12 1657 Complete LITHIUM 07/12 1657 Complete ETHANOL 07/12 1657 Complete COMPREHENSIVE METABOLIC PANEL 07/12 1657 Complete CBC WITHOUT DIFFERENTIAL 07/12 1657 Complete EKG 07/12 1657 Active Continuous Observation Monitor 07/12 1655 Complete URINE DRUGS OF ABUSE 07/12 1633 Complete URINALYSIS 07/12 1633 Complete TRC EVALUATION (GEN) 07/12 UNK Complete Lab Add-on Test 07/12 UNK Active VTE Mechanical Prophylaxis 07/12 UNK Active Telemetry/Slag Skimmer 07/12 UNK Active FingerStick- Glucose 07/12 UNK Complete Continuous Observation Monitor 07/12 UNK Active PSYCHIATRIC CONSULT 07/12 UNK Active Current Medications Sig/Ralph Start time Last Medication Dose Stop Time Status Admin Aripiprazole 20 MG AT BEDTIME 07/13 2200 CAN (Abilify) Insulin Detemir 22 UNITS QPM 07/13 2200 AC (Levemir) Metformin HCl 1,000 MG BID 07/13 1000 CAN (Glucophage) Albuterol Sulfate 2 PUF Q4P PRN 07/13 0915 AC (Ventolin) Insulin Human Regular 0 Q6 07/12 2359 AC (Novolin R) Atorvastatin Calcium 40 MG AT BEDTIME 07/12 2300 AC (Lipitor) Laboratory Tests 07/13/16 0700: Anion Gap 9, Estimated GFR > 60, BUN/Creatinine Ratio 17.1, Troponin I < 0.01, CBC w Diff NO MAN DIFF REQ, RBC 4.59, MCV 91.3, MCH 30.1, RDW 12.9, MPV 9.7, Gran % 56.5, Lymphocytes % 32.4, Monocytes % 5.6, Eosinophils % 4.3, Basophils % 1.2, Absolute Granulocytes 4.3, Absolute Lymphocytes 2.5, Absolute Monocytes 0.4 , Absolute Eosinophils 0.3, Absolute Basophils 0.1, PUBS MCHC 33.0 07/13/16 0110: Troponin I < 0.01, Hoskins 1.0 07/12/16 1935: Anion Gap 8, Estimated GFR > 60, BUN/Creatinine Ratio 20.0, Glucose 111 H, Troponin I < 0.01, Hoskins 1.2 07/12/16 1848: Hoskins Cancelled 07/12/16 1705: Anion Gap 14, Estimated GFR > 60, BUN/Creatinine Ratio 20.0, Glucose 149 H, Serum Osmolality 302 H, Calcium 11.1 H, Total Bilirubin 0.4, AST 17, ALT 39, Alkaline Phosphatase 69, Total Protein 7.8, Albumin 4.8, Globulin 3.0, Albumin/ Globulin Ratio 1.6, CBC w Diff NO MAN DIFF REQ, RBC 5.23, MCV 90.6, MCH 30.2, RDW 12.9, MPV 9.6, Gran % 67.3, Lymphocytes % 24.9, Monocytes % 4.7, Eosinophils % 2.3, Basophils % 0.8, Absolute Granulocytes 6.9 H, Absolute Lymphocytes 2.6, Absolute Monocytes 0.5, Absolute Eosinophils 0.2, Absolute Basophils 0.1, PUBS MCHC 33.3, Salicylates < 1.0, Acetaminophen < 10.0 L, Hoskins 1.5 *H, Serum Alcohol < 10.0 07/12/16 1634: Urine Opiates Screen < 100.00, Methadone Screen < 40, Barbiturate Screen < 60, Ur Phencyclidine Scrn < 6.00, Amphetamines Screen < 100, U Benzodiazepines Scrn > 800 H, Urine Cocaine Screen < 50, Urine Cannabis Screen < 5.00, Urine Color YEL, Urine Clarity CLEAR, Urine pH 8.0, Ur Specific Cedar 1.015, Urine Protein TRACE H, Urine Ketones NEG, Urine Nitrite NEG, Urine Bilirubin NEG, Urine Urobilinogen 0.2, Ur Leukocyte Esterase NEG, Ur Microscopic SEDIMENT EXAMINED, Urine RBC RARE, Urine WBC 5-10 H, Ur Epithelial Cells FEW, Urine Hemoglobin NEG , Urine Glucose NEG Departure Departure Disposition: STILL A PATIENT Condition: Stable Clinical Impression Primary Impression: Hoskins overdose Qualifiers: Encounter type: initial encounter Injury intent: intentional self- harm Qualified Code: T56.892A - Toxic effect of other metals, intentional self- harm, initial encounter Secondary Impressions: Suicide attempt Referrals: KENNY STEVENS D.O. (PCP/Family) Departure Forms: Customer Survey General Discharge Information Admission Note Documentation of Exam: Documentation of any treatments & extenuating circumstances including Concerns Regarding Discharge (functional status, medication knowledge or non-compliance, living conditions, etc.) that warrant an admission rather than observation: Patient requires medical admission due to possible lithium overdose and toxicity , suicide attempt, will need crisis evaluation. Every 2 hours lithium checks until peak in trending downward, if over 4 may need emergent dialysis, we'll discussed with nephrology, also every hour blood checks and telemetry monitoring. (ERIKA TOMLINSON) Admission Note Spoke With: KALEE LEBRON MD Documentation of Exam: Documentation of any treatments & extenuating circumstances including Concerns Regarding Discharge (functional status, medication knowledge or non-compliance, living conditions, etc.) that warrant an admission rather than observation: PA/ANIMAL CONTROL SPECIALIST Co-Sign Statement Statement: ED Attending supervision documentation- [x] I saw and evaluated the patient. I have also reviewed all the pertinent lab results and diagnostic results. I agree with the findings and the plan of care as documented in the PA's/ANIMAL CONTROL SPECIALIST's documentation. [] I have reviewed the ED Record and agree with the PA's/ANIMAL CONTROL SPECIALIST's documentation. [] Additions or exceptions (if any) to the PAs/ANIMAL CONTROL SPECIALIST's note and plan are summarized below: [] 07/12/16 6 pm That 50-year-old female presents to the emergency department after a lithium overdose. The onset of the symptoms were abrupt, the duration was several hours ago, the severity is significant as her symptoms required her to come to the emergency department for care. She denies any complaints at this time. Poison control has been consulted, she is being admitted to the telemetry service for serial lithium levels. Nephrology has been informed. (CONRADO BILLS DO) Critical Care Note Critical Care Note Critical Care Time: 30-74 min (ÁNGELA BEJARANO,ERIKA)
--- NOTE | 2016-07-12 17:16 | NUR ---
PT TO BATHROOM, USING HER OWN WALKER
[2016-07-12 17:19] LABS: ABSOLUTE BASOPHIL COUNT 0.1 /CUMM (0.0-0.2); ABSOLUTE EOSINOPHIL COUNT 0.2 /CUMM (0.0-0.7); ABSOLUTE GRANULOCYTE CT 6.9 /CUMM (1.4-6.5); ABSOLUTE LYMPH COUNT 2.6 /CUMM (1.2-3.4); ABSOLUTE MONOCYTE COUNT 0.5 /CUMM (0.10-0.60); BASOPHIL % 0.8 % (0.0-2.0); EOSINOPHIL % 2.3 % (0-5); GRANULOCYTE % 67.3 % (42.2-75.2); HEMATOCRIT 47.4 % (37-47); MEAN CORPUSCULAR HGB 30.2 PG (27.0-31.0); MEAN CORPUSCULAR HGB CONC 33.3 G/DL (33.0-37.0); MEAN CORPUSCULAR VOLUME 90.6 FL (81.0-99.0); MEAN PLATELET VOLUME 9.6 FL (7.4-10.4); PLATELET COUNT 329 /CUMM (130-400); RBC DISTRIBUTION WIDTH 12.9 % (11.5-14.5); RED BLOOD CELL CT 5.23 /CUMM (4.20-5.40); WHITE BLOOD CELL COUNT 10.3 /CUMM (4.8-10.8)
[2016-07-12 17:33] LABS: LITHIUM 1.5 mmol/L (0.6-1.2)
--- NOTE | 2016-07-12 17:34 | NUR ---
CRITICAL TEST RESULTS [id number] DAIJA DONAHUE 50 F TESTS AND RESULTS: LITHIUM 1.5 Results received and read back by: ERIKA PENALOZA Results received date and time: 07/12/16 1734 The following provider was notified of the results, and read the results back: DARCI MOTTA Notified date and time: 07/12/16 at 1734
--- NOTE | 2016-07-12 17:46 | NUR ---
IV EST. NS INFUSING (SEE MAR)
--- NOTE | 2016-07-12 18:18 | NUR ---
POC - PT TO BE ADMITTED.
--- NOTE | 2016-07-12 19:07 | NUR ---
PT STATING SHE WANTS TO REFUSE BLOODWORK AND FLUIDS. PT STATES SHE WANTS TO GO HOME WELL. INFORMED PT SHE IS UNABLE TO SIGN OUT AT THIS TIME, DUE TO HER TRYING TO KILL HERSELF. PROVIDER AWARE.
--- NOTE | 2016-07-12 19:38 | NUR ---
SST DRAWN AND SENT
--- NOTE | 2016-07-12 19:54 | NUR ---
2ND LITER NS INFUSING (SEE MAR)
[2016-07-12 20:03] LABS: LITHIUM 1.2 mmol/L (0.6-1.2)
--- NOTE | 2016-07-12 20:43 | History & Physical ---
MARTINA ZUNIGA,[facility] 07/12/162042: General Information and HPI MD Statement: I have seen and personally examined DAIJA DONAHUE and documented this H&P. The patient is a 50 year old F who presented with a patient stated chief complaint of overdose. Source of Information: patient Exam Limitations: no limitations History of Present Illness: This is a 50-year-old lady with a past medical history of COPD on 2 L home oxygen, obesity, obstructive sleep apnea on BiPAP, bipolar disease resents to [place] ED for evaluation after intentional ingestion of her prescription medications. She reports to have recently been severely depressed and had not taken any his medication for about 4 weeks, however, she reports that today she intentionally decided to take 8 tablets of his lithium(300mg), 8 tablets of Zoloft 100mg, 4 tablets of his Xanax to 600 mg tablets ibuprofen and about 22 units of Lantus in an attempt to harm herself. Patient denies any nausea, vomiting, abdominal pain , altered mental status tremulousness, chest pain, or palpitation. Of note, patient underwent cardiac cath which was unremarkable and was inserted with a link recorder which was removed by her guitar teacher yesterday, and was scheduled to have a cardiac MRI in the near future. Allergies/Medications Allergies: Coded Allergies: codeine (Severe, ITCH 08/09/15) lemon (Severe, SOB 08/09/15) propranolol (Severe, SHOCK PER PT 08/09/15) Home Med list Albuterol Sulfate (Proair Hfa) 8.5 GM HFA.AER.AD 1-2 PUF INH Q4-6 PRN PRN COPD (Reported) Alprazolam (Xanax) 1 MG TABLET 1 TAB PO TID ANXIETY (Reported) Aripiprazole (Abilify) 20 MG TABLET 1 TAB PO QHS MENTAL HEALTH (Reported) Aspirin (Ecotrin*) 81 MG TABLET.DR 1 TAB PO QAM HEART/BLOOD (Reported) Atorvastatin Calcium (Lipitor) 40 MG TABLET 1 TAB PO QHS CHOLESTEROL ( Reported) Budesonide/Formoterol Fumarate (Symbicort 160-4.5 Mcg Inhaler) 10.2 GM HFA.AER.AD 2 PUF INH BID COPD (Reported) Carbamazepine (Carbamazepine XR) 400 MG TAB.ER.12H 1 TAB PO BID TRIGEMINAL NEURALGIA (Reported) Colchicine 0.6 MG TABLET 1 TAB PO DAILY PERICARDITIS (Reported) Ergocalciferol (Vitamin D2) (Vitamin D2) 50,000 UNIT CAPSULE 1 CAP PO QTHURS SUPPLEMENT (Reported) Fenofibrate Nanocrystallized (Fenofibrate) 145 MG TABLET 1 TAB PO DAILY CHOLESTEROL/TRIGLYCERIDES (Reported) Fluticasone Propionate 16 GM SPRAY.SUSP 2 SPRAY NASB DAILY ALLERGIES ( Reported) Folic Acid 1 MG TABLET 1 TAB PO QAM SUPPLEMENT (Reported) Furosemide 20 MG TABLET 1.5 TAB PO DAILY FLUID (Reported) Gabapentin 600 MG TABLET 1 TAB PO BID NEUROPATHY (Reported) Ibuprofen 600 MG TABLET 1 TAB PO 4XDP PRN PAIN (Reported) Insulin Glargine,Hum.rec.anlog (Lantus Solostar) 100 UNIT/ML (3 ML) INSULN.PEN 22 UNIT SC QPM DM (Reported) Levothyroxine Sodium 50 MCG TABLET 1 TAB PO DAILY THYROID (Reported) Linaclotide (Linzess) 145 MCG CAPSULE 1 CAP PO QAM CIC (Reported) [place] Carbonate 300 MG CAPSULE 1 CAP PO TID DEPRESSION (Reported) Metformin HCl 1,000 MG TABLET 1 TAB PO BID DIABETES (Reported) Nitroglycerin (Nitrostat) 0.4 MG TAB.SUBL 1 TAB SL AD PRN CHEST PAIN 1st sign of attack; may repeat every 5 minutes until relief; if pain persists after 3 tablets in 15 minutes, prompt medical att Pantoprazole Sodium (Protonix) 40 MG TABLET.DR 1 TAB PO DAILY GERD (Reported) Sertraline HCl 100 MG TABLET 2 TAB PO QAM MENTAL HEALTH (Reported) Past History Travel History Traveled to [place] past 21 day No Medical History Neurological: dizziness, peripheral neuropathy, TIA, TRIGEMINAL NEURALGIA NEUROPATHY EENT: NONE Cardiovascular: hyperlipidemia, HIGH TRYGLCERIDES recent cardiac catheterizations were negative for occlusive coronary artery disease PERICARDITIS Respiratory: bronchitis, obstructive sleep apnea, pneumonia, BIPAP Gastrointestinal: ACID REFLUX CONSTIPAT- CHRONIC/IDEOPA ABDOMINAL HERNIA Hepatic: CHOLELITHIASIS CHOLECYSTECTOMY Renal: NONE Musculoskeletal: R ANKLE FX AND REPAIR Psychiatric: anxiety, bipolar disease, depression Endocrine: diabetes, HYPOTHYROIDISM Blood Disorders: NONE Cancer(s): ovarian cancer, SARCOMA L LEG 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/Reproductive: OVARIAN CA TOTAL HYSTERECTOMY History of MRSA: No History of VRE: No History of CDIFF: No Isolation History: Standard Influenza Vaccine: 02/21/16 Surgical History Surgical History: ABD HERNIA REPAIR X4 HYSTERECTOMY CHOLECYSTECTOMY R ANKLE SX POST FX SARCOMA REMOVAL L LEG Past Family/Social History Family History Relations & Conditions if any MOTHER Relation not specified for: *No pertinent family history FH: diabetes mellitus Psychosocial History Services at Home: None ETOH Use: denies use Illicit Drug Use: denies illicit drug use Functional Ability ADLs Independent: dressing, eating, toileting, bathing. Ambulation: independent IADLs Independent: shopping, housework, finances, food prep, telephone, transportation , medication admin. Review of Systems Review of Systems Constitutional: Reports: no symptoms. Exam & Diagnostic Data Last 24 Hrs of Vital Signs/I&O Vital Signs Date Time Temp Pulse Resp B/P Pulse O2 O2 Flow FiO2 Ox Delivery Rate 07/13 022 64 98 07/13 022 94 Room Air 07/12 2209 96.8 65 20 150/69 94 Room Air 07/12 2025 96.8 66 20 144/64 94 Room Air 07/12 1801 98.2 77 20 140/81 93 Room Air 07/12 1551 97.0 76 16 142/83 95 Room Air Intake & Output 07/13 0800 07/13 0000 07/12 1600 Intake Total 2000 Output Total Balance 2000 Intake, IV 2000 Patient 102.058 kg 99.79 kg Weight Physical Exam General Appearance Alert, Oriented X3, Cooperative Skin No Significant Lesion HEENT Atraumatic, PERRLA, EOMI Neck Supple, No JVD, No thryomegaly Lymphatic Cervical nl Cardiovascular Regular Rate, Normal S1, No Murmurs Lungs Clear to Auscultation, Normal Air Movement Abdomen Normal Bowel Sounds, Soft, No Tenderness Neurological Normal Speech, Sensation Intact Extremities No Clubbing, No Cyanosis Vascular Pulses Symmetrical Assessment/Plan Assessment: This is a 50-year-old gentleman with a significant history of depression and bipolar disease including what seems to be a recent worsening of her depression presents after a suicidal attempt with ingestion of multiple medications. Of note, patient ingested 8 tablets of 100 mg lithium, and 8 tablets of Zoloft. [place] toxicity was a concern however initial lithium levels were below for and therefore less severe. [place] levels on presentation was 1.5 and subsequently dropped to 1.2. Patient's U tox was obtained and was unremarkable for any acetaminophen or salicylate overdose. A benzodiazepine was noted in the urine which corresponded with patients account of taking 4 tablets of 1 mg. Assessment and plan #Intentional drug overdose Patient attempted suicide by ingesting multiple medications. Nephrology consult poison control advise was obtained and followed. Patient currently does not exhibit any GI or neurological symptoms which can be consistent with lithium toxicity. This was not warranted as patient's level of below 4. Plan We'll continue normal saline hydration with aim of clearing lithium level We'll continue to trend lithium levels Continue to trend BEP Will trend troponins and EKG to him to for any arrhythmias #History of COPD Currently not on acute exacerbation. Plan TRC nebs Will continue Symbicort dose #History of diabetes Novolin sliding scale for nothing by mouth Accu-Cheks 3 times a day and bedtime Will hold Levemir for now until patient starts diet As Ranked By This Provider Problem List: 1. Suicide attempt 2. [place] overdose Qualifiers Encounter type: initial encounter Injury intent: intentional self-harm Qualified Code: T56.892A - Toxic effect of other metals, intentional self-harm, initial encounter Core Measures/Miscellaneous Acute Coronary Syndrome ACS Diagnosis: No Cerebrovascular Accident CVA/TIA Diagnosis: No Congestive Heart Failure CHF Diagnosis: No Venous Thromboembolism VTE Risk Factors: Age > 40 No [facility] VTE prophylaxis d/t: No contraindications No VTE Pharm Prophylaxis d/t: No contraindications VTE Diagnosis: No VTE Type: NONE VTE Confirmed by (Test): NONE Severe Sepsis Severe Sepsis Present: No Septic Shock Septic Shock Present: No Miscellaneous Documentation Attending Case Discussed With: LAURYN LEBRON MDJhonathan Primary Care Physician: KENNY STEVENS D.O. 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 cardiology Level of Patient Care: Telemetry SHAYNE ROWE MD 07/13/16 0013: Resident Review Statement Resident Statement: examined this patient, discussed with education intern, agreed with education intern Other Findings: 50 y/o F who presents to the ED after intentional intake of multiple medications. Per patient, she ingested 8 tabs of Li 300 mg, 8 tabs of Zoloft, 2 tabs of Metformin 1000 mg, 4 tabs of Xanax 1 mg and 2 tabs of Motrin 600 mg. Prior to that, she states that she has been severely depressed and has therefore not taken any of her medications over the last month. She reports wanting to harm herself today, after which she was brought into the ED by her family. After her transfer from in April, she was sent to [facility] for a positive stress test. Her Cardiac Cath was negative, but she had a link recorder placed at the time. She followed up with her Materials Management Manager Dr. Baker's associate , yesterday, when the link recorder was removed and a cardiac MR was scheduled for the future. In the ED, her [place] level was found to be elevated with no EKG changes. Her repeat [place] level normalized in the ED and she will be admitted to [facility] for closer monitoring. Vitals: WNL Physical Exam: WNL Labs: [place] 1.5 and later decreased to 1.2, Utox positive for BZD's. Problem List: 1) Intention Overdose of multiple medications including [place] * Poison Control has been informed. [place] levels have normalized. Will recheck [place] levels again and monitor for EKG changes. 2) H/O Depression, Bipolar Disorder and Suicide Attempts * Restart all home medications in AM except for [place] 3) COPD: * TRC/Nebs 4) Sleep Apnea on CPAP at night 5) DM on Insulin and Metformin: * Continue home levemir. Hold Metformin and start patient on Novolog Sliding Scale. 6) DVT PPx: * SubQ Lovenox 7) Pain Pathway: * Tylenol PRN 8) Code Status: * DNR/DNI. We tried to discuss this with the patient, but she seems to be coherent and therefore able to make decisions. VI ZUNIGA, [facility] 07/13/16 0025: Attending MD Review Statement Attending Statement Attending MD Statement: examined this patient, discuss w/resident/PA/SOLDERER, agreed w/resident/PA/SOLDERER Attending Assessment/Plan: 50 yo morbidly obese F, smoker with h/o COPD on 2L nocturnal O2, T2DM, SHIRIN on CPAP, pericarditis with effusion, HTN, HLD, is here s/p intentional drug overdose in a suicide attempt. She took 8 tabs (300 mg) of lithium, 8 tabs (100 mg) Zoloft, 2 tabs (1000 mg) Metformin, 4 tabs (1 mg) Xanax, 2 tabs (600 mg) Motrin and 22 units of lantus. She reports she stopped taking all meds for past 1 month, has been depressed. Poor appetite, nausea+, no vomiting. She did get treated for a COPD exacerbation last month by Dr. Wall with a medrol dose pack that she finished yesterday. Last admitted to [facility] (Apr 2016) for COPDE, developed recurrent chest pain for which she underwent stress test that was positive, she was then transferred to [facility] for cardiac cath that was normal. She then had a link recorder which was removed in the past week and she is scheduled for a cardiac MRI next week. here with VSS. Exam is unremarkable. Labs: Ca 11.1, lithium 1.5 --> 1.2, salicylate and tylenol <10, Utox positive for benzos. S. Alcohol <10. UA neg. EKG: SR, no acute changes. 1. Intentional drug overdose, suicide attempt, elevated lithium levels. Tele admit, serial lithium levels, clear liq diet, anti-emetics, Poison control consulted. Nephro was consulted by ER. Monitor renal functions. Monitor EKG changes or arrhythmias. Gentle IV fluids. Trend troponin. Maintain 1:1 sitter, Psych consult. Hold lithium. Resume abilify, xanax, sertraline, carbamazepine and gabapentin. 2. T2DM. Accucheks, monitor for hypoglycemia, check HbA1c. Insulin NPO SS, resume levemir once patient tolerates a diet. Hold metformin. 3. GERD. Ct. Protonix. 4. COPD not in exacerbation. TR nebs, ct. Symbicort. Resume CPAP for SHIRIN at night. Smoking cessation counseling. DVT ppx Lovenox. 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 She is coherent and makes complete sense.
--- NOTE | 2016-07-12 21:32 | NUR ---
PT BED ASSIGNMENT 189-1
--- NOTE | 2016-07-12 21:54 | NUR ---
HOUSE STAFF TO MARCELINO.
--- NOTE | 2016-07-12 22:14 | NUR ---
REPORT CALLED TO TELE. TRANSPORT CALLED.
--- NOTE | 2016-07-12 23:19 | Admission Certification ---
Admission Certification Certification Statement - As attending physician, I certify that at the time of - admission, based on clinical presentation, severity of - symptoms, need for further diagnostic testing and - therapeutic interventions, and risk of adverse outcomes - without in-hospital treatment, in my clinical assessment, - this patient requires an acute hospital stay for a minimum - of two nights or longer. I have also considered psychsocial - factors such as support system, advanced age, financial - issues, cognitive issues, and failed out-patient treatments, - past re-admission history, safety of patient, and lack of - compliance as applicable. Specific rationale supporting this admission is: Intentional drug overdose, suicide attempt, elevated lithium levels.
--- NOTE | 2016-07-13 07:10 | PN- Housestaff ---
SHEEBA BLISS 07/13/16 0708: Subjective Follow-up For: #1 drug overdose Complaints: no complaints Tele-Events Since Last Visit: Normal sinus rhythm, 61-67, no overnight events. Subjective: The patient was comfortable this morning. Did not have any chest pain, shortness of breath or palpitations. Did not have any suicidal ideation, however expressed suicidality this a.m. with the nurse. Vitals were stable overnight. Did not have any fever. Review of Systems Constitutional: Reports: see HPI. Objective Last 24 Hrs of Vital Signs/I&O Vital Signs Date Time Temp Pulse Resp B/P Pulse O2 O2 Flow FiO2 Ox Delivery Rate 07/13 022 64 98 07/13 0227 94 Room Air 07/12 2208 96.8 65 20 150/69 94 Room Air 07/12 2024 96.8 66 20 144/64 94 Room Air 07/12 1801 98.2 77 20 140/81 93 Room Air 07/12 1551 97.0 76 16 142/83 95 Room Air Intake & Output 07/13 0800 07/13 0000 07/12 1600 Intake Total 2000 Output Total Balance 2000 Intake, IV 2000 Patient 225 lb 220 lb Weight Physical Exam General Appearance: No Acute Distress Other Physical Findings: General Exam: AAOx3, No acute distress, Skin: No rashes, no breakdown HEENT: PERRLA, EOMI Neck: Supple, No JVD No cervical lymphadenopathy CVS: Reg Rate, Normal S1,S2, No MGR Resp: Normal air entry, no ronchi/rales Abdomen: Soft, No tenderness, Normal Bowel Sounds Neuro: Normal Speech, Strength 5/5 b/l x 4 extremities, Sensation intact, CN III -XII NL, Reflexes 2+ Extremities: No cyanosis, pedal edema Current Medications: Current Medications Sig/Ralph Start time Last Medication Dose Route Stop Time Status Admin Acetaminophen 650 MG Q6P PRN 07/12 2245 AC 07/13 PO 0029 Alprazolam 1 MG TID 07/13 1000 AC PO 07/20 0959 Aripiprazole 20 MG AT BEDTIME 07/13 2200 AC PO Aspirin Buffered 81 MG QAM 07/13 1000 AC PO Atorvastatin Calcium 40 MG AT BEDTIME 07/12 2300 AC PO Carbamazepine 400 MG BID 07/13 1000 AC PO Colchicine 600 MCG DAILY 07/13 1000 AC PO Enoxaparin Sodium 40 MG DAILY 07/13 1000 AC SC Fenofibrate 145 MG DAILY 07/13 1000 AC PO Folic Acid 1 MG QAM 07/13 1000 AC PO Furosemide 30 MG DAILY 07/13 1000 AC PO Gabapentin 600 MG BID 07/13 1000 AC PO Insulin Detemir 22 UNITS QPM 07/13 2200 AC SC Insulin Human Regular 0 Q6 07/12 2359 AC SC Levothyroxine Sodium 0.05 MG DAILY AC 07/13 0700 AC 07/13 PO 0539 Metformin HCl 1,000 MG BID 07/13 1000 CAN PO Sertraline HCl 200 MG QAM 07/13 1000 AC PO Sodium Chloride 1,000 ML BOLUS ONE 07/12 1900 DC 07/12 IV 07/12 195 195 Sodium Chloride 1,000 ML BOLUS ONE 07/12 1700 DC 07/12 IV 07/12 1759 1746 Last 24 Hrs of Lab/Matthieu Results Last 24 Hrs of Labs/Mics: Laboratory Tests 07/13/16 0110: Troponin I < 0.01, [place] 1.0 07/12/16 1935: Anion Gap 8, Estimated GFR > 60, BUN/Creatinine Ratio 20.0, Glucose 111 H, Troponin I < 0.01, [place] 1.2 07/12/16 1848: [place] Cancelled 07/12/16 170: Anion Gap 14, Estimated GFR > 60, BUN/Creatinine Ratio 20.0, Glucose 149 H, Serum Osmolality 302 H, Calcium 11.1 H, Total Bilirubin 0.4, AST 17, ALT 39, Alkaline Phosphatase 69, Total Protein 7.8, Albumin 4.8, Globulin 3.0, Albumin/ Globulin Ratio 1.6, CBC w Diff NO MAN DIFF REQ, RBC 5.23, MCV 90.6, MCH 30.2, RDW 12.9, MPV 9.6, Gran % 67.3, Lymphocytes % 24.9, Monocytes % 4.7, Eosinophils % 2.3, Basophils % 0.8, Absolute Granulocytes 6.9 H, Absolute Lymphocytes 2.6, Absolute Monocytes 0.5, Absolute Eosinophils 0.2, Absolute Basophils 0.1, PUBS MCHC 33.3, Salicylates < 1.0, Acetaminophen < 10.0 L, [place] 1.5 *H, Serum Alcohol < 10.0 07/12/16 1634: Urine Opiates Screen < 100.00, Methadone Screen < 40, Barbiturate Screen < 60, Ur Phencyclidine Scrn < 6.00, Amphetamines Screen < 100, U Benzodiazepines Scrn > 800 H, Urine Cocaine Screen < 50, Urine Cannabis Screen < 5.00, Urine Color YEL, Urine Clarity CLEAR, Urine pH 8.0, Ur Specific [place] 1.015, Urine Protein TRACE H, Urine Ketones NEG, Urine Nitrite NEG, Urine Bilirubin NEG, Urine Urobilinogen 0.2, Ur Leukocyte Esterase NEG, Ur Microscopic SEDIMENT EXAMINED, Urine RBC RARE, Urine WBC 5-10 H, Ur Epithelial Cells FEW, Urine Hemoglobin NEG , Urine Glucose NEG Assessment/Plan Assessment: Mr. Virgen is a 50-year-old woman with a past history of COPD (2 L oxygen, obstructive sleep apnea on CPAP, was brought to [facility] ER with a chief concern of unintentional overdose of Zoloft, Xanax, ibuprofen and Lantus. At the time of admission, vitals temperature 97.0, pulse rate 76, respirations 16, blood pressure 142/83, pulse ox 95% on room air. Lab findings indicated WBC 10.3, Hb 15.8, Platelets 329, Normal electrolytes K 4.5, Normal renal function BUN 12, Cr 0.6, Cardiac enzymes negative. Utox was positive for lithium 1.5( which decreasd to 1.2, 1.0). UA clean. glucosoe 111. Admission diagnosis: 1. Intentional overdose- No tele events, w/ no arrythmias noted on ekg. Non specific t wave changes. Discontinue carbamazepine, xanax, and zoloft. 1-1 sitter. Psychiatry consult. Check BEp in the am. 2. DIabetes- resume levemir. Accuchecks. 3. DVT prophylaxis- heparin. 4. On biPAP (nocturnal) as per pulmonary. Problem List: 1. Suicide attempt 2. [place] overdose Pain Ratin Pain Location: none Pain Goal: Pain 4 or less Pain Plan: tylenol prn Tomorrow's Labs & Rationales: bep AINSLEY CABALLERO MD 07/13/16 1056: Attending Review Statement Attending Statement Attending MD Statement: examined this patient, discuss w/resident/PA/CONCRETE CONVEYOR OPERATOR, agreed w/resident/PA/CONCRETE CONVEYOR OPERATOR, reviewed EMR data (avail) Attending Assessment/Plan: 50F PMH COPD on 2 L home oxygen, obesity, obstructive sleep apnea on BiPAP, bipolar disease admitted for intentional overdose of [place], Zoloft, and Xanax. Patient with severe depression of late due to home situation. Denies SI this morning. Hemodynamically stable, no telemetry events, [place] level 1.5 now to 1.0. EKG NSR. Labs unremarkable, exam benign. Plan - Please hold all psychiatry medications until evaluated by psychiatry - Continue remaining medications - Repeat EKG today - Psychiatry consult - DVT PPx - No telemetry events, lithium level normal, glucose levels normal. Will repeat EKG. If unchanged, can be transferred to inpatient psychiatry service with medical consult. Confirmed with psychiatry.
[2016-07-13 08:06] LABS: ABSOLUTE BASOPHIL COUNT 0.1 /CUMM (0.0-0.2); ABSOLUTE EOSINOPHIL COUNT 0.3 /CUMM (0.0-0.7); ABSOLUTE GRANULOCYTE CT 4.3 /CUMM (1.4-6.5); ABSOLUTE LYMPH COUNT 2.5 /CUMM (1.2-3.4); ABSOLUTE MONOCYTE COUNT 0.4 /CUMM (0.10-0.60); BASOPHIL % 1.2 % (0.0-2.0); EOSINOPHIL % 4.3 % (0-5); GRANULOCYTE % 56.5 % (42.2-75.2); MEAN CORPUSCULAR HGB 30.1 PG (27.0-31.0); MEAN CORPUSCULAR VOLUME 91.3 FL (81.0-99.0); MEAN PLATELET VOLUME 9.7 FL (7.4-10.4); PLATELET COUNT 264 /CUMM (130-400); RBC DISTRIBUTION WIDTH 12.9 % (11.5-14.5); RED BLOOD CELL CT 4.59 /CUMM (4.20-5.40); WHITE BLOOD CELL COUNT 7.7 /CUMM (4.8-10.8)
[2016-07-13 08:10] VITALS: BP 130/72
[2016-07-13 08:34] LABS: HEMATOCRIT 41.9 % (37-47)
--- NOTE | 2016-07-13 15:57 | Cons- Pulmonary ---
General Information and HPI Consulting Request Date of Consult: 07/13/16 Requested By: Dr. Lawrence Reason for Consult: COPD, SHIRIN, in setting of drug ingestion Source of Information: patient Exam Limitations: no limitations History of Present Illness: 50 year old woman. Recent COPD exacerbation. Tapered off steroids. Still smoking about 3 cigarettes per day. The patient was with DM Type II before starting the steroids. Patient reports her breathing is better and feels far better than day of her discharge. Also discussed with her been enrolled in low dose lung CT at age of 55 if she maintains her smoking habits. Sje is admitted for trying to hurt herself and is being evaluated by psychiatry, drug ingestions included lithium and insulin. Uses BiPAP with O2 bleed in. Continues to have hoarseness which is on/off. Sees Dr. Shafer. Compliance report reviewed and on BiPAP 08/04 her AHI is controlled to 3.3. Missed a few days and needs to improve compliance. No cough, no fevers, no chils. Patient had a CT scan in February 2015. She has a stable 4 mm left upper lobe nodule dating back to August 2014. This is stable for over 2 years and considered benign. Resolved pericardial effusion as well. Some mosaicism suggesting reactive airway disease. PFTs performed 03/30/2015. Showing a moderately severe reduction in FEV1 and FVC. She does have a significant bronchodilator response however her FEV1/FVC percent is normal. TLC is reduced and her DLCO is moderately reduced as well. This is consistent with a mixed obstruction and restrictive deficit. Allergies/Medications Allergies: Coded Allergies: codeine (Severe, ITCH 08/09/15) lemon (Severe, SOB 08/09/15) propranolol (Severe, SHOCK PER PT 08/09/15) Uncoded Allergies: all ashley (Severe, SOB 07/13/16) Home Med List: Albuterol Sulfate (Proair Hfa) 8.5 GM HFA.AER.AD 1-2 PUF INH Q4-6 PRN PRN COPD (Reported) Alprazolam (Xanax) 1 MG TABLET 1 TAB PO TID ANXIETY (Reported) Aripiprazole (Abilify) 20 MG TABLET 1 TAB PO QHS MENTAL HEALTH (Reported) Aspirin (Ecotrin*) 81 MG TABLET. 1 TAB PO QAM HEART/BLOOD (Reported) Atorvastatin Calcium (Lipitor) 40 MG TABLET 1 TAB PO QHS CHOLESTEROL ( Reported) Budesonide/Formoterol Fumarate (Symbicort 160-4.5 Mcg Inhaler) 10.2 GM HFA.AER.AD 2 PUF INH BID COPD (Reported) Carbamazepine (Carbamazepine XR) 400 MG TAB.ER.12H 1 TAB PO BID TRIGEMINAL NEURALGIA (Reported) Colchicine 0.6 MG TABLET 1 TAB PO DAILY PERICARDITIS (Reported) Ergocalciferol (Vitamin D2) (Vitamin D2) 50,000 UNIT CAPSULE 1 CAP PO QTHURS SUPPLEMENT (Reported) Fenofibrate Nanocrystallized (Fenofibrate) 145 MG TABLET 1 TAB PO DAILY CHOLESTEROL/TRIGLYCERIDES (Reported) Fluticasone Propionate 16 GM SPRAY.SUSP 2 SPRAY NASB DAILY ALLERGIES ( Reported) Folic Acid 1 MG TABLET 1 TAB PO QAM SUPPLEMENT (Reported) Furosemide 20 MG TABLET 1.5 TAB PO DAILY FLUID (Reported) Gabapentin 600 MG TABLET 1 TAB PO BID NEUROPATHY (Reported) Ibuprofen 600 MG TABLET 1 TAB PO 4XDP PRN PAIN (Reported) Insulin Glargine,Hum.rec.anlog (Lantus Solostar) 100 UNIT/ML (3 ML) INSULN.PEN 22 UNIT SC QPM DM (Reported) Levothyroxine Sodium 50 MCG TABLET 1 TAB PO DAILY THYROID (Reported) Linaclotide (Linzess) 145 MCG CAPSULE 1 CAP PO QAM CIC (Reported) [place] Carbonate 300 MG CAPSULE 1 CAP PO TID DEPRESSION (Reported) Metformin HCl 1,000 MG TABLET 1 TAB PO BID DIABETES (Reported) Nitroglycerin (Nitrostat) 0.4 MG TAB.SUBL 1 TAB SL AD PRN CHEST PAIN 1st sign of attack; may repeat every 5 minutes until relief; if pain persists after 3 tablets in 15 minutes, prompt medical att Pantoprazole Sodium (Protonix) 40 MG TABLET.DR 1 TAB PO DAILY GERD (Reported) Sertraline HCl 100 MG TABLET 2 TAB PO QAM MENTAL HEALTH (Reported) Current Medications: Current Medications Sig/Ralph Start time Last Medication Dose Route Stop Time Status Admin Acetaminophen 650 MG Q6P PRN 07/12 2245 AC 07/13 PO 0901 Albuterol Sulfate 2 PUF Q4P PRN 07/13 0915 AC INH Alprazolam 1 MG TID 07/13 1000 DC 07/13 PO 07/20 0959 0900 Aripiprazole 20 MG AT BEDTIME 07/13 2200 CAN PO Aspirin Buffered 81 MG QAM 07/13 1000 AC 07/13 PO 0855 Atorvastatin Calcium 40 MG AT BEDTIME 07/12 2300 AC PO Carbamazepine 400 MG BID 07/13 1000 DC 07/13 PO 0856 Colchicine 600 MCG DAILY 07/13 1000 AC 07/13 PO 0856 Enoxaparin Sodium 40 MG DAILY 07/13 1000 AC 07/13 SC 0857 Fenofibrate 145 MG DAILY 07/13 1000 AC 07/13 PO 0857 Folic Acid 1 MG QAM 07/13 1000 AC 07/13 PO 0857 Furosemide 30 MG DAILY 07/13 1000 AC 07/13 PO 0855 Gabapentin 600 MG BID 07/13 1000 AC 07/13 PO 0856 Insulin Detemir 22 UNITS QPM 07/13 2200 AC SC Insulin Human Regular 0 Q6 07/12 2359 AC SC Levothyroxine Sodium 0.05 MG DAILY AC 07/13 0700 AC 07/13 PO 0539 Metformin HCl 1,000 MG BID 07/13 1000 CAN PO Sertraline HCl 200 MG QAM 07/13 1000 DC 07/13 PO 0856 Sodium Chloride 1,000 ML BOLUS ONE 07/12 1900 DC 07/12 IV 07/12 1959 1953 Sodium Chloride 1,000 ML BOLUS ONE 07/12 1700 DC 07/12 IV 07/12 1759 1746 Review of Systems Comments 18 point Review of Systems performed. Positive and negative pertinent findings are deliniated in the HPI. Otherwise the ROS is negative. Past History Travel History Traveled to [place] past 21 day No Medical History Blood Transfusion Hx: No Neurological: dizziness, peripheral neuropathy, TIA, TRIGEMINAL NEURALGIA NEUROPATHY EENT: NONE Cardiovascular: hyperlipidemia, HIGH TRYGLCERIDES recent cardiac catheterizations were negative for occlusive coronary artery disease PERICARDITIS Respiratory: bronchitis, obstructive sleep apnea, pneumonia, BIPAP Gastrointestinal: ACID REFLUX CONSTIPAT- CHRONIC/IDEOPA ABDOMINAL HERNIA Hepatic: CHOLELITHIASIS CHOLECYSTECTOMY Renal: NONE Musculoskeletal: R ANKLE FX AND REPAIR Psychiatric: anxiety, bipolar disease, depression Endocrine: diabetes, HYPOTHYROIDISM Blood Disorders: NONE Cancer(s): ovarian cancer, SARCOMA L LEG 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 Home Services at Home: Nursing Smoking Status: Current Everyday Smoker ETOH Use: denies use Illicit Drug Use: denies illicit drug use Functional Ability ADLs Independent: dressing, eating, toileting, bathing. Ambulation: independent IADLs Independent: shopping, housework, finances, food prep, telephone, transportation , medication admin. Exam & Diagnostic Data Last 24 Hrs of Vital Signs/I&O Vital Signs Date Time Temp Pulse Resp B/P Pulse O2 O2 Flow FiO2 Ox Delivery Rate 07/13 0858 Room Air 07/13 0810 97.1 65 18 130/72 98 Room Air 07/13 0229 64 98 07/13 0227 94 Room Air 07/12 2209 96.8 65 20 150/69 94 Room Air 07/12 2025 96.8 66 20 144/64 94 Room Air 07/12 1801 98.2 77 20 140/81 93 Room Air Intake & Output 07/13 1600 07/13 0800 07/13 0000 Intake Total 1800 2000 Output Total 640 Balance 1160 2000 Intake, IV 2000 Intake, Oral 1800 Output, Urine 640 Patient 225 lb Weight Physical Exam Other Physical Findings: General - Alert, awake and oriented HEENT - normocephalic, atraumatic Cardiovascular - S1, S2 Lungs - rare rhonchi Abdomen - soft, bowel sounds positive, no tenderness Extremities - without edema or cyanosis Last 48 Hrs of Labs/Matthieu: Laboratory Tests 07/13/16 0700: Anion Gap 9, Estimated GFR > 60, BUN/Creatinine Ratio 17.1, Troponin I < 0.01, CBC w Diff NO MAN DIFF REQ, RBC 4.59, MCV 91.3, MCH 30.1, RDW 12.9, MPV 9.7, Gran % 56.5, Lymphocytes % 32.4, Monocytes % 5.6, Eosinophils % 4.3, Basophils % 1.2, Absolute Granulocytes 4.3, Absolute Lymphocytes 2.5, Absolute Monocytes 0.4 , Absolute Eosinophils 0.3, Absolute Basophils 0.1, PUBS MCHC 33.0 07/13/16 0110: Troponin I < 0.01, Carbamazepine < 3.0 L, [place] 1.0 07/12/16 1935: Anion Gap 8, Estimated GFR > 60, BUN/Creatinine Ratio 20.0, Glucose 111 H, Troponin I < 0.01, [place] 1.2 07/12/16 1848: [place] Cancelled 07/12/16 1705: Anion Gap 14, Estimated GFR > 60, BUN/Creatinine Ratio 20.0, Glucose 149 H, Serum Osmolality 302 H, Calcium 11.1 H, Total Bilirubin 0.4, AST 17, ALT 39, Alkaline Phosphatase 69, Total Protein 7.8, Albumin 4.8, Globulin 3.0, Albumin/ Globulin Ratio 1.6, CBC w Diff NO MAN DIFF REQ, RBC 5.23, MCV 90.6, MCH 30.2, RDW 12.9, MPV 9.6, Gran % 67.3, Lymphocytes % 24.9, Monocytes % 4.7, Eosinophils % 2.3, Basophils % 0.8, Absolute Granulocytes 6.9 H, Absolute Lymphocytes 2.6, Absolute Monocytes 0.5, Absolute Eosinophils 0.2, Absolute Basophils 0.1, PUBS MCHC 33.3, Salicylates < 1.0, Acetaminophen < 10.0 L, [place] 1.5 *H, Serum Alcohol < 10.0 07/12/16 1634: Urine Opiates Screen < 100.00, Methadone Screen < 40, Barbiturate Screen < 60, Ur Phencyclidine Scrn < 6.00, Amphetamines Screen < 100, U Benzodiazepines Scrn > 800 H, Urine Cocaine Screen < 50, Urine Cannabis Screen < 5.00, Urine Color YEL, Urine Clarity CLEAR, Urine pH 8.0, Ur Specific [place] 1.015, Urine Protein TRACE H, Urine Ketones NEG, Urine Nitrite NEG, Urine Bilirubin NEG, Urine Urobilinogen 0.2, Ur Leukocyte Esterase NEG, Ur Microscopic SEDIMENT EXAMINED, Urine RBC RARE, Urine WBC 5-10 H, Ur Epithelial Cells FEW, Urine Hemoglobin NEG , Urine Glucose NEG Assessment/Plan Impression/Plan: Impression 50 year old woman. Recent COPD exacerbation. Tapered off steroids. Still smoking about 3 cigarettes per day. The patient was with DM Type II before starting the steroids. Patient reports her breathing is better and feels far better than day of her discharge. Also discussed with her been enrolled in low dose lung CT at age of 55 if she maintains her smoking habits. Sjluisito is admitted for trying to hurt herself and is being evaluated by psychiatry, drug ingestions included lithium and insulin. Uses BiPAP with O2 bleed in. Continues to have hoarseness which is on/off. Sees Dr. Shafer. Compliance report reviewed and on BiPAP / her AHI is controlled to 3.3. Missed a few days and needs to improve compliance. No cough, no fevers, no chils. Patient had a CT scan in February 2015. She has a stable 4 mm left upper lobe nodule dating back to August 2014. This is stable for over 2 years and considered benign. Resolved pericardial effusion as well. Some mosaicism suggesting reactive airway disease. PFTs performed 03/30/2015. Showing a moderately severe reduction in FEV1 and FVC. She does have a significant bronchodilator response however her FEV1/FVC percent is normal. TLC is reduced and her DLCO is moderately reduced as well. This is consistent with a mixed obstruction and restrictive deficit. Plan -resume home inhalers -trc/nebs -psychiatry follow up regarding suicidal attempt -monitor levels of drugs -nocturnal bipap at 18/12 with o2 bleed in DVT prophylaxis at all times Will see in office Consult Acknowledgment - Thank you for your consult request.
[2016-07-13 16:40] VITALS: BP 130/70
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
--- NOTE | 2016-07-13 17:07 | NUR ---
RECIEVED SUICIDE NOTE PATIENT WROTE PRIOR TO ADMISSION FRIOM PATIENT'S NIECE, DON, WHO FOUND THE NOTE. ORIGINAL PLACED IN PATIENT CHART BY THIS RN.
[2016-07-13] MEDS ORDERED: LORAZEPAM1 M1 PO (20:47)
--- NOTE | 2016-08-17 11:38 | Discharge Summary ---
Visit Information Visit Dates Admission Date: 07/12/16 Discharge Date: 07/13/16 Hospital Course Course Attending Physician: AINSLEY CABALLERO MD [facility]: Ms Virgen is a 50-year-old woman with a past history of COPD (2 L oxygen), obstructive sleep apnea, obesity, bipolar disorder was evaluated for suicidal intent-ingestion of her prescribed medications (lithium, Zoloft, Xanax, ibuprofen and Lantus) and also injection of 22 units of Lantus. She was known to be depressed for many weeks, and discontinued her medications prior to this episode. At the time of admission, vitals temperature 97.0, pulse rate 76, respirations 16, blood pressure 142/83, pulse ox 95% on room air. Lab findings indicated WBC 10.3, Hb 15.8, Platelets 329, Normal electrolytes K 4.5, Normal renal function BUN 12, Cr 0.6, Cardiac enzymes negative. Utox was positive for lithium 1.5( which decreasd to 1.2, 1.0). UA clean. glucosoe 111. Admission diagnosis: 1. Intentional overdose-she was admitted to telemetry floor to monitor for arrhythmias. No tele events were noted during the stay. All the psychiatric medications including carbamazepine, xanax, and zoloft were discontinued and was monitored closely with a 1-1 sitter. Psychiatry was consulted for advice. She was admitted to inpatient psychiatry for further management. 2. DIabetes- she was restarted on her Levemir, and blood sugars remained within normal limits. 3. DVT prophylaxis- heparin. 4. COPD-she was continued on BiPAP. Pulmonology-Dr. Wall was consulted for advice. CT scan in February 2015 showed a stable 4 mm left upper lobe nodule. Since this was stable for over 2 years and was considered benign. PFTs that were performed in 03/30/2015, showed moderately severe reduction in FEV1 and FVC. She also had a significant bronchodilator response with FEV1/FVC percent being normal. TLC and DLCO is reduced, which is consistent with a mixed obstruction and restrictive deficit. She was continued on nocturnal BiPAP 08/04 with oxygen. Allergies: Coded Allergies: codeine (Severe, ITCH 08/09/15) lemon (Severe, SOB 08/09/15) melatonin (Severe, HIVES/RASH 07/16/16) PER . -CG 07/16/16 propranolol (Severe, SHOCK PER PT 08/09/15) Uncoded Allergies: all ashley (Severe, SOB 07/13/16) Disposition Summary Disposition Principal Diagnosis: Suicidal intent Additional Diagnosis: COPD Discharge Disposition: Inpatient psychiatry Discharge Instructions General Discharge Information Code Status: Do Not Resucitate/Intubat Patient's Diet: heart healthy diet Patient's Activity: as tolerated. Follow-Up Instructions/Appts: Please follow up with her primary care physician within one to 2 weeks of discharge. Medications at Discharge Discharge Medications: Stop taking the following medications: [place] Carbonate ([place] Carbonate) 300 MG CAPSULE ORAL THREE TIMES DAILY Aripiprazole (Abilify) 20 MG TABLET ORAL TAKE AT BEDTIME Alprazolam (Xanax) 1 MG TABLET ORAL THREE TIMES DAILY Sertraline HCl (Sertraline HCl) 100 MG TABLET ORAL Every Morning Carbamazepine (Carbamazepine XR) 400 MG TAB.ER.12H ORAL TWICE DAILY Colchicine (Colchicine) 0.6 MG TABLET ORAL DAILY Continue taking these medications: Gabapentin (Gabapentin) 600 MG TABLET 1 Tablet ORAL TWICE DAILY Comments: Last Taken: 07/13/16 Time: 9 AM Levothyroxine Sodium (Levothyroxine Sodium) 50 MCG TABLET 1 Tablet ORAL DAILY Comments: Last Taken: 07/19/16 Time: 0600 Atorvastatin Calcium (Lipitor) 40 MG TABLET 1 Tablet ORAL TAKE AT BEDTIME Comments: Last Taken: 07/18/16 Time: 1700 Aspirin (Ecotrin*) 81 MG TABLET. 1 Tablet ORAL Every Morning Comments: Last Taken: 07/19/16 Time: 0800 Folic Acid (Folic Acid) 1 MG TABLET 1 Tablet ORAL Every Morning Comments: Last Taken: 07/19/16 Time: 0800 Linaclotide (Linzess) 145 MCG CAPSULE 1 Capsule ORAL Every Morning Comments: Last Taken: 07/18/16 Time: 0800 Ergocalciferol (Vitamin D2) (Vitamin D2) 50,000 UNIT CAPSULE 1 Capsule ORAL EVERY SATURDAY Comments: Last Taken: 07/19/16 Time: 0800 Albuterol Sulfate (Proair Hfa) 8.5 GM HFA.AER.AD 1-2 Puff Inhale through mouth EVERY 4-6 HOURS NEEDED as needed for COPD Comments: DID NOT RECEIVE WHILE IN HOSPITAL. PT RECEIVED NEB TX Budesonide/Formoterol Fumarate (Symbicort 160-4.5 Mcg Inhaler) 10.2 GM HFA.AER.AD 2 Puff Inhale through mouth TWICE DAILY Qty = 10 Comments: Last Taken: 07/19/16 Time: 0800 Fluticasone Propionate (Fluticasone Propionate) 16 GM SPRAY.SUSP 2 [place] Both sides of nose DAILY Qty = 16 Comments: Last Taken: 07/19/16 Time: 0800 Pantoprazole Sodium (Protonix) 40 MG TABLET.DR 1 Tablet ORAL DAILY Comments: Last Taken (PRILOSEC): 07/19/16 Time: 0600 Metformin HCl (Metformin HCl) 1,000 MG TABLET 1 Tablet ORAL TWICE DAILY Qty = 90 Comments: Last Taken: 07/19/16 Time: 0800 Insulin Glargine,Hum.rec.anlog (Lantus Solostar) 100 UNIT/ML (3 ML) INSULN.PEN 22 Unit Inject into fatty tissue Every night Qty = 15 Comments: Last Taken: 07/18/16 Time: 2200 Fenofibrate Nanocrystallized (Fenofibrate) 145 MG TABLET 1 Tablet ORAL DAILY Qty = 85 Comments: Last Taken: 07/19/16 Time: 0800 Furosemide (Furosemide) 20 MG TABLET 1.5 Tablet ORAL DAILY Qty = 90 Comments: Last Taken: 07/19/16 Time: 0800 Nitroglycerin (Nitrostat) 0.4 MG TAB.SUBL 1 Tablet SUBLINGUAL As Directed as needed for CHEST PAIN Qty = 25 Instructions: 1st sign of attack; may repeat every 5 minutes until relief; if pain persists after 3 tablets in 15 minutes, prompt medical att Comments: NOT GIVEN IN HOSPITAL. Start taking the following new medications: Lorazepam (Lorazepam) 1 MG TABLET 1 Milligram ORAL EVERY SIX HOURS Qty = 10 No Refills Copies To: KENNY STEVENS D.O. Attending MD Review Statement Documenting Attending: AINSLEY CABALLERO MD
== END 2016-07-13 20:15 | DRG 918 ==
LOC: ENRESERVDT → ENRESERVTM → ERH 15:41 → ERHI 20:30 → 1NO 20:30
PROVIDERS: Internal Medicine; Physician Assistant Surgical; ADMIT Student in an Organized Health Care Education/Training Program
DX: T56.892A Toxic effect of other metals, intentional self-harm, initial encounter (principal); Z68.41 Body mass index [BMI] 40.0-44.9, adult; I10 Essential (primary) hypertension; T43.222A Poisoning by selective serotonin reuptake inhibitors, intentional self-harm, initial encounter; T38.3X2A Poisoning by insulin and oral hypoglycemic [antidiabetic] drugs, intentional self-harm, initial encounter; T42.4X2A Poisoning by benzodiazepines, intentional self-harm, initial encounter; Y92.009 Unspecified place in unspecified non-institutional (private) residence as the place of occurrence of the external cause; F31.9 Bipolar disorder, unspecified; E66.9 Obesity, unspecified; F17.200 Nicotine dependence, unspecified, uncomplicated; E11.9 Type 2 diabetes mellitus without complications; G47.33 Obstructive sleep apnea (adult) (pediatric); E78.5 Hyperlipidemia, unspecified; K21.9 Gastro-esophageal reflux disease without esophagitis; E03.9 Hypothyroidism, unspecified
CPT/HCPCS: 1NSP; 80307; 81001; 82436; 93005; 93010; 96360; 96361; 99233; G0480; J0401; J1650; J1815; J3490

== ENCOUNTER 2016-07-13 15:27 | Inpatient (IN) | payer OTHER, MEDICARE ==
[~2016-07-13] VITALS: Ht 157.5 cm; Wt 103.9 kg
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
[2016-07-13] MEDS ORDERED: LORAZEPAM1 M1 PO (20:47)
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
--- NOTE | 2016-07-14 00:15 | PN- Att Addend ---
Attending Addendum Attending Brief Note 50 yo morbidly obese F, smoker with h/o COPD on 2L nocturnal O2, T2DM, SHIRIN on CPAP, pericarditis with effusion, HTN, HLD, was admitted (07/12) s/p intentional drug overdose in a suicide attempt. She took 8 tabs (300 mg) of lithium, 8 tabs (100 mg) Zoloft, 2 tabs (1000 mg) Metformin, 4 tabs (1 mg) Xanax, 2 tabs (600 mg ) Motrin and 22 units of lantus. Patient has severe depression of late due to her home situation. She was noted to have an elevated lithium level and was monitored on Telemetry for arrhythmias. Her lithium levels trended down and her renal functions were normal. Hence, she was transferred to Psychiatry unit for further management. She stopped taking all her medications about 4 weeks back. 12 point ROS was essentially negative. Last admitted to [facility] (Apr 2016) for COPDE, developed recurrent chest pain for which she underwent stress test that was positive, she was then transferred to [facility] for cardiac cath that was normal. She then had a link recorder which was removed in the past week and she is scheduled for a cardiac MRI next week. Vital Signs Result Date Time Pulse Ox 96 07/14 0054 Vitals stable. Physical exam: General appearance: Awake, alert, no distress. Skin: no rashes, no breakdown. HEENT: PERRLA, EOMI. Neck: Supple, no JVD. No lymphadenopathy. Chest: B/l air entry equal. Heart S1S2 regular. Abd: soft, NT. Neuro: non focal exam. LE: No edema. Labs on admission: Ca 11.1, lithium 1.5 --> 1.2, salicylate and tylenol <10, Utox positive for benzos. S. Alcohol <10. UA neg. EKG: SR, no acute changes. Assessment and plan: 1. Suicide attempt, depression. Management per Psych team. 2. Drug overdose, elevated lithium levels. Stabilized, no tele events, glucose normal. Sand Pillow has been discontinued. Zoloft, abilify, tegretol have been discontinued per Psych team. 3. T2DM. Accucheks, continue metformin and lantus 22 units at bedtime. Continue gabapentin for diabetic neuropathy. 4. GERD. Ct. Protonix. 5. COPD not in exacerbation. [place] nebs, ct. Symbicort. Resume CPAP for SHIRIN at night. Smoking cessation counseling. 6. Hypothyroidism. Ct. synthroid. DVT ppx low risk, early ambulation.
--- NOTE | 2016-07-14 06:21 | NUR ---
PATIENT UP TO BATHROOM ONCE, OTHERWISE SLEPT ALL NIGHT WITH 1:1 SITTER MONITORING; SHE ONLY WORE HER BIPAP MACHINE FOR PART OF THE NIGHT; RESPIRATORY STATUS WNL; LOUD SNORING OBSERVED WHEN BIPAP MACHINE NOT ON.
[2016-07-14 08:08] VITALS: BP 140/85
[2016-07-14 12:11] VITALS: BP 131/80
--- NOTE | 2016-07-14 12:17 | NUR ---
Danika remained safe all shift. Denies any SH/HI/SI. Did not participate in any am groups. 1:1 status has been removed as it is no longer needed. Finger sticks needed BID and am BS 136. Affect is flat but engagable when engaged in conversation. Stayed to self most of the shift.
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
[2016-07-14 16:05] VITALS: BP 145/75
[2016-07-14 19:35] VITALS: BP 105/72
--- NOTE | 2016-07-14 21:11 | NUR ---
PT IS CALM, COOPERATIVE WITH STAFF AND PEERS, AND COMPLIANT WITH UNIT RULES. PT IS OFTEN IN PT ROOM, OUT OF MILIEU. WHEN APPEARING IN [facility] PT WILL CONDCUT CONVERSATION WITH OTHERS. MOOD IS STABLE, AFFECT IS EUTHYMIC, COMMUNICATION IS ORGANIZED AND NORMAL IN ALL RESPECTS, AND APPETITE IS NORMAL. PT DENIES SI AT THIS TIME. BLOOD GLUCOSE AT 1630 WAS RECORDED AT 102.
--- NOTE | 2016-07-14 21:25 | CPS MD/APRN INITIAL ASSE PSYCH ---
Psychiatric Admission Aviation Survival Technician's Note Reviewed: Yes Patient Seen and Examined: Yes Identifying Information: This is the 3rd [facility] admission since two in 2013 for a childless, 50-year-old woman currently residing in [facility], with her pet cat and unemployed ("disabled"). Chief Complaint: "I stopped all my meds because I don't need them and don't want them anymore." Reaction to Hospitalization: agreeable but concerned about being able to make a cardiac test/procedure (?MRI) she claimed is scheduled for next week and she has been waiting for "for a year. " History of Present Illness Onset of Illness: Patient went to visit family in [place] on or about 06/20/2016 and did not bring her medications, deciding she neither wanted to take them nor needed them anymore. She then overdosed on these same medications 3 weeks later and was BIBA to the E.D. after being unexpectedly discovered in her act by a cousin who called 911/the EMT's. Apparently, she had left a suicide note (which I have not yet seen). Circumstances Leading to Admission: --visit to relatives in [place] --self-discontinuation of psych medications --overdosing on above medications 3 weeks after discontinuing them Problem(s) Justifying Need for Admission: --recent suicidal behavior/suicide attempt --continuing lack of understanding/insight into what led up to her becoming suicidal Other HPI: Patient currently treated by Huber Nye M.D., who she last saw on 2016, the day before she reportedly stopped all of her medications. 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 and gait disturbance/ weakness (has utilized a wheelchair or walker at various times) Peripheral Neuropathy (worst in R foot) S/P ventral hernia repair in 2012 with multiple serious complications hx of Hypertension hx of hyperlipidemia hx of atypical chest pain with at least two negative cardiac catheterizations prior to 2013 Past Precipitating Factors- if any: --undertaking of and/or noncompliance with taking of prescribed psychotropic medications --lack of insight into her illness and need for treatment - Include inpatient and outpatient treatment Treatment History: Patient was admitted to [facility] twice in 2013; upon the 2nd discharge she was referred directly to the [facility] and was going to continue her consultations with her PMD, Dr. Castellon, as well as specialists, Dr. Baker ( cardiology) and Dr. Quigley (endocrinology). History of Suicide Attempts or Gestures this is first known suicide attempt via overdose to my knowledge but has had suicidal ideation/plans on several occasions in the past (two of them eventuating in admissions to [facility]) Substance Abuse History: has become dependent on "prescribed" benzodiazepines and oral opiates in the past Allergies: Coded Allergies: codeine (Severe, ITCH 08/09/15) lemon (Severe, SOB 08/09/15) propranolol (Severe, SHOCK PER PT 08/09/15) Uncoded Allergies: all ashley (Severe, SOB 07/13/16) Home Med List: per Modesto Harris APRN, psych recruiting consultant on medical floor FISH FARMER, she had been most recently prescribed: [place] carbonate, 300mg 3x/day Zoloft, 100mg 2x/day Abilify, 20mg HS Neurontin, 300mg 4x/day carbamazepine ER, 400mg 2x/day Xanax, 1mg up to 3x/day PRN also: Synthroid, Lasix, Symbicort, Ventolin, Lantus insulin, Tricor, Lipitor, Protonix , vitamin D and folic acid - Include any medical condition(s) that may - impact the patient's recovery/remission Past History Medical History Neurological: dizziness, peripheral neuropathy, TIA, TRIGEMINAL NEURALGIA NEUROPATHY, gait disturbance (uses a walker); ?neurological basis EENT: NONE Cardiovascular: angina (hx "atypical chest pain" ), hypertension, hyperlipidemia , HIGH TRYGLCERIDES recent cardiac catheterizations were negative for occlusive coronary artery disease PERICARDITIS Respiratory: asthma, bronchitis, obstructive sleep apnea, pneumonia, BIPAP Gastrointestinal: ACID REFLUX CONSTIPAT- CHRONIC/IDEOPA ABDOMINAL HERNIA Hepatic: CHOLELITHIASIS CHOLECYSTECTOMY Renal: NONE Musculoskeletal: R ANKLE FX AND REPAIR Psychiatric: anxiety, bipolar disease, depression, opioid dependence, substance abuse (possible benzo. and opioid) Endocrine: diabetes, HYPOTHYROIDISM Blood Disorders: NONE Cancer(s): ovarian cancer, SARCOMA L LEG POLYMER SCIENTIST/Reproductive: OVARIAN CA TOTAL HYSTERECTOMY History of MRSA: No History of VRE: No History of CDIFF: No Isolation History: Standard Influenza Vaccine: 02/21/16 Surgical History Surgical History: cholecystectomy, hysterectomy, VENTRAL HERNIA REPAIRS WITH MULTIPLE ASSOCIATED COMPLICATIONS SARCOMA REMOVED Psychiatric Family/Social Hx Family History Psychiatric Illness: no formal history known Substance Use: unknown Suicides: brother committed suicide at age 44 (when patient was herself [id number]) Other Family History: unknown Social History Living Situation: (see above under Identifying Information) Significant Relationships (family/friends): has an involved cousin and relatives in [place] Education: some college Vocation/Occupation: disabled Legal: denied Other Social History: noncontributory at this time Healthly Behaviors Screening Tobacco Screening Tobacco Use from ED Docu: Current Daily Use Daily Tobacco Use Amount/Type: => 5 Cigarettes daily - If tobacco counseling indicated - the following topics are required. - #1 Recognizing dangerous situations. - #2 Coping Skills. - #3 Basic information about quitting. Status of Tobacco Cessation Counseling: #1, #2 AND #3 Completed Cessation Med Status: Nicotine Patch Ordered (patch and gum offered) Alcohol Screening - ETOH screen POS if BAL >=80 or Audit-C>= M4/F3 Audit-C Score from Diag Assess: 1 Blood Alcohol Level: MYCHAL = less than 10.0 in E.D. FISH FARMER (as well as in E.D. prior to two [facility] admissions in 2013) Alcohol Use Screening Results: Neg per Audit C &/or BAL - If ETOH counseling indicated - the following topics are required. - #1 Express concern about the patient's - drinking at unhealthy levels, include informing - of national norms for moderate drinking: - men <= 14 drinks/week, max 4 drinks/occasion - women <= 7 drinks/week, max 3 drinks/occasion - #2 Providing feedback, including linking alcohol to - negative physical effects (liver injury, hypertension) - negative emotional effects (relationship problems and - depression) - negative occupational consequences (reduced work - performance) - #3 Advising the patient to abstain from alcohol or - to drink below national norms for moderate drinking - (as listed above). Status of ETOH Use Counseling: N/A B/C NO ETOH Use Metabolic Screening - Screen if on a Neuroleptic Medication - Metabolic screening should include: - Blood Pressure, BMI, Glucose or Hgb A1c, & a - Lipid profile from within the past 365 days. Metabolic Screening ([X]) Not Applicable, patient not on a neuroleptic. OR () Patient on a neuroleptic(s) . Enter below results for Glucose or Hemoglobin A1C, and lipid panel if obtained during the last 365 days. BMI: 41.000 Blood Pressure: 113/73 Laboratory Results (If applicable): Exam and Plan Mental Status Examination Ambulation Status: well with a rolling walker Appearance: adequately groomed Attitude towards examiner: ambivalent to mildly positive Psychomotor activity: normal Behavior: appropriate Quality of speech: normal Affect: constricted Mood: depressed and anxious Suicidal Ideation: denied at time of interview but acknowledged immediately FISH FARMER Homicidal Ideation: denied Hallucinations: denied Paranoid/Delusional Material: no evidence of Difficulties with thought organization: not noted Insight: very limited Judgment: recently poor (self-discontinued previously effective psychotropic medications almost immediately after most recent appointment with treating outpatient psychiatrist) Orientation: fulll Cognition: intact Memory Function: generally fair to good Estimate of intellectual functioning: average Assets/Strengths Patient Identified Assets/Strengths: --likes animals --follows doctors' recommendations Impression/Plan Impression and Plan: Patient appears to be suffering a recurrent bipolar depression in the context of abrupt/rapid self-discontinuation of [place] and other psychotropic medications about 3 weeks FISH FARMER while she was feeling very well and that she no longer needed any medication. We will re-establish previously effective psychopharmacological therapy, engage in further education around her disorders, medications, smoking cessation, etc., and hopefully be able to make referral for more intensive outpatient therapy. - Include all active medical diagnosis that require tx DSM 5 Diagnosis(es): Unspecified Bipolar Disorder with suicidal behavior via overdose on "[place], Zoloft, metformin, insulin" (and had "intended to take more...") R/O Bipolar II Disorder R/O Sedative/Hypnotic (benzodiazepine) Use Disorder (?Valium vs. other benzos.) - Initial Tx Plan for Active Psych & Medical Conditions Treatment Plan: Initially, we will re-establish a therapeutic [place] concentration and engage patient in further education related to her disorder and treatment thereof (in particular, the importance of NOT abruptly discontinuing [place] even if she does not intend to remain on it any longer--need for a slow taper to avoid "rebound" decompendation). We will attempt to refer patient to intensive outpatient treatment (has been referred to [facility] with Dr. Burkett in the past). We will check into patient's description of a "cardiac MRI" scheduled for next week (per her furniture mover driver, Dr. Baker) and attempt to reschedule it, if necessary. - Factors that would help patient function - in a less restrictive setting. Factors: --patient's understanding of and cooperation with needed/recommended treatment ( therapy and medications) --mobilizing more of a local support system (?starting with the cousin who found her overdosing FISH FARMER)
[2016-07-15 08:13] VITALS: BP 132/75
--- NOTE | 2016-07-15 11:48 | NUR ---
Pt is present in the community, A&O x3, compliant with medication and group therapies/ activities. Patient report good night sleep and appetite but continues to endorse passive suicidal ideation with feeling of worthlessness fatigue and loss of energy. Vital sign is stable , mood is euthymic/apathetic, adjusting well with her walker for ambulation. Will keep monitoring and asssessing patient with risk for self-harm.
[2016-07-15 12:12] VITALS: BP 113/73
[2016-07-15 15:53] VITALS: BP 146/78
[2016-07-15 19:57] VITALS: BP 145/75
--- NOTE | 2016-07-15 20:34 | NUR ---
PT IS CALM, COOPERATIVE WITH STAFF AND PEERS, AND COMPLIANT WITH UNIT RULES. PT IS OFTEN IN PT ROOM, SLEEPING FOR LONG PERIODS, BUT WILL VENTURE INTO MILIEU AT TIMES, WHERE INTERACTION DOES OCCUR WELL WITH OTHERS.MOOD IS STABLE, AFFECT IS EUTHYMIC TO FULL RANGE, COMMUNICATION IS ORGANIZED AND NORMAL IN ALL RESPECTS, AND APPETITE IS NORMAL. PT MADE AN SI COMMENT AT 1600 VITALS, STATED SHE DID HAVE A PLAN, THOUGH NOTHING THAT COULD BE CARRIED OUT ON THE UNIT, AND DENIED HAVING THE WILL TO ATTEMPT TO CARRY ANYTHING OUT ON UNIT. CHARGE NURSE WAS NOTIFIED LATER.
--- NOTE | 2016-07-15 21:26 | CP SOUTH PROGRESS NOTE PSYCH ---
Psych (Inpt) Progress Note Progress Note Include the following elements, when applicable: Involvement in the active treatment of the patient with behavioral observations of the patient and the patient's response to the treatment. Review of the ongoing treatment process in the context of the treatment plan. Indication of how multi-disciplinary staff members are carrying out the treatment plan. Plans for future interventions and recommendations for revision of the treatment plan. Liaison with other physicians/providers. Progress Note: PSYCHIATRIST NOTE, 07/15/2016: I discussed this patient's progress thus far and current mental status with nursing staff and met with her again myself in individual session today. Patient denied any problematic side effects related to initial doses of [place] carbonate (starting 300mg 2x/day), and we engaged in a discussion of the need to taper away [place] gradually even if one does not plan to continue taking it, that abrupt discontinuation of [place] therapy can be associated with increased short-term risk of major relapses of illness. Patient was still ambivalent as to whether it had been "a good idea" to discontinue all of her psychotropic medications immediately prior to her making a visit to relatives [id number].
[2016-07-16 07:38] VITALS: BP 138/67
[2016-07-16 12:04] VITALS: BP 149/74
--- NOTE | 2016-07-16 14:03 | NUR ---
PT IS QUIET, WITHDRAWN BUT HAS BEEN ATTENDING GROUPS. PT SPENDS SOME TIME IN BED BUT OFTEN SITS IN FRONT OF FISH TANK IN THE MILIEU. PT DENIES SI AT THIS TIME.
--- NOTE | 2016-07-16 15:30 | CP SOUTH PROGRESS NOTE PSYCH ---
Psych (Inpt) Progress Note Progress Note Include the following elements, when applicable: Involvement in the active treatment of the patient with behavioral observations of the patient and the patient's response to the treatment. Review of the ongoing treatment process in the context of the treatment plan. Indication of how multi-disciplinary staff members are carrying out the treatment plan. Plans for future interventions and recommendations for revision of the treatment plan. Liaison with other physicians/providers. Progress Note: PSYCHIATRIST NOTE, 07/16/2016: I discussed this patient's progress thus far, current mental status, treatment and discharge planning with staff team today in the daily morning ITTM and also met with her again myself in individual session. Today, patient was a little less noncommital as to whether or not it was "a good idea" to have abruptly discontinued her medications the day after seeing her outpatient psychiatrist and just before her planned trip to visit family in [place]; she is willing to acknowledge at this time "it was not such a good idea" to have stopped them, though she still did not appear all that convinced of the fact. After further discussion, patient did agree to increasing dose of [place] carbonate from 300mg 2x/day up to previous outpatient dose of 900mg daily, starting tonight. She is continuing to experience sleep difficulty and thinks she recalls having received benefit in this regard previously on low dose Remeron and is willing to try it starting tonight.
[2016-07-16 16:05] VITALS: BP 141/72
--- NOTE | 2016-07-16 16:33 | SOCIAL WORKER TX PLAN PSYCH ---
Treatment Plan - Please Document: - Evidence that there is ongoing collaboration between - the patient and the interdisciplinary team, - including the patient's active participation and - responsibility for engaging in the treatment regimen, - and that the treatment plan is individualized and - relevant to the patient's conditions. - Treatment plan should reflect documentation indicating - that all active therapeutic efforts are included. Strengths/Capabilities: "articulate", smart, social Physical Limitations (Interventions): "in a wheelchair, can use walker" Patient Identified Trmt Goals: "I want to go home" Discharge Plan: outpatient med management with Dr. Nye. Refer to weekly therapy. VNS to prepour meds M,W,F. Problem/Goals #1 Problem #1: depression Goal (Short Term): Patient will attend 3 groups per day on the unit Goal (Shelter): patient will be able to identify a safety plan Interventions: patient will be offered medication management with the psychiatrist, patient will be offered groups on coping skills, symptom management, relaxation, focus group, goals group, art therapy, accupuncture. home weatherizing worker will discuss reasons for living and discuss a safety plan. home weatherizing worker will hold family meeting and assist with aftercare planning. DSM5/PS Stressors/Medical Prob Diagnosis' (DSM 5, Stressors, Medical): Bipolar D/O NOS MRE depressed PTSD Current GAF: 10 Treatment Team - Responsibilities of members of the treatment team include: - Medication Management- MD or JOSETTE - Medication Administration and Monitoring- Nurse - Group Therapy- Occupational Therapist - 1:1 Therapy,Disch Planning,family involvement-Hardener Helper
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
[2016-07-16 19:41] VITALS: BP 144/71
--- NOTE | 2016-07-16 20:57 | NUR ---
PT IS CALM, COOPERATIVE WITH STAFF AND PEERS, AND COMPLIANT WITH UNIT RULES. PT IS SPENDS SOME TIME IN MILIEU, THOUGH ALSO SPENDS LENGTHS OF TIME IN PT ROOM, OUT OF MILIEU. MOOD IS STABLE, AFFECT IS EUTHYMIC TO FULL RANGE, COMMUNICATION IS ORGANIZED AND APPEARS NORMAL IN ALL REPECTS, AND APPETITE IS NORMAL. PT MADE AN SI COMMENT WITH A PLAN VERBALIZED TO CHARGE NURSE DURING THE EVENING. PT STATED SHE WANTED TO EAT ALL OF THE LEMON SORBET KEPT ON UNIT TO COMMIT SELF HARM SINCE SHE IS HIGHLY ALLERGIC TO LIAN. AFTER THE STATEMENT WAS MADE, LEMON SORBET WAS REMOVED FROM THE UNIT SO THAT THIS COULS NOT OCCUR. PT SINCE HAS NOT MADE ANYMORE COMMENTS OF THIS NATURE, AND HAS REMAINED CALM.
[2016-07-17 07:47] VITALS: BP 151/67
--- NOTE | 2016-07-17 09:14 | SOCIAL WORKER PROG NOTE PSYCH ---
Social Work Progress Note Progress Note Talked to Danika's visiting nurse Yvonne from [facility]. Yvonne sees her 2x's a week for respitory issues under Medicare. Gave her an update on Danika's admission and clinical status. She may be able to prepour meds for a few days for her and lock up meds in a safe. Danika required a one on one sitter from last evening due to having SI with a plan to eat lemon sorbet in the freezer. She also refused her medications. When I met with Lizeth this afternoon, she was able to say that she is having a better day and that she no longer required a sitter. She said she doesn't want to . She said she went to a couple of groups today and she was thinking alot about her life. She said some of the thoughts were postive. She said she has a new nephew in [place] that she just visited with and she has a neice getting in January and she was asked to do a reading for her. These events gave her postive feelings. Encouraged her to keep sticking with the postive. She said she would take her meds this evening. She is hoping to leave the hospital soon. I told her that I spoke with her nurse Yvonne this morning and told her that Yvonne is willing to try and do what they can to support her, including prepouring meds for a few days. I asked her if she would be willing to consider that as part of her safety plan? She stated she would think about it. I also continue to ask if she would be willing to attend [facility]? She said no. Reminded her of our family meeting tomorrow and that we will continue to talk about the discharge plan.
[2016-07-17 12:11] VITALS: BP 135/72
--- NOTE | 2016-07-17 14:40 | NUR ---
PT IS ON 1:1 FOR SI THOUGHTS WITH A PLAN. PT REPORTED TO STAFF AT 0800 VITALS THAT PT HAD SI THOUGHTS AND A PLAN. UPON FURTHER PROMPTING, PT WOULD NOT TELL STAFF PLAN SO PUT PT ON 1:1 FOR SAFTEY. PT HAS BEEN ISOATLIVE IN ROOM FOR MOST OF SHIFT. PT DID MAKE ONE GROUP TODAY. PT MOOD IS STABLE WITH A FLAT AFFECT.
--- NOTE | 2016-07-17 15:38 | CP SOUTH PROGRESS NOTE PSYCH ---
Psych (Inpt) Progress Note Progress Note Include the following elements, when applicable: Involvement in the active treatment of the patient with behavioral observations of the patient and the patient's response to the treatment. Review of the ongoing treatment process in the context of the treatment plan. Indication of how multi-disciplinary staff members are carrying out the treatment plan. Plans for future interventions and recommendations for revision of the treatment plan. Liaison with other physicians/providers. Progress Note: PSYCHIATRIST NOTE, 07/17/2016: I discussed this patient's slow progress to date, current mental status, treatment and discharge planning with staff team today in the daily warren ITTM and also met with her again myself in individual session. Patient had become more intensely suicidal last evening, refused all of her night meds and was placed on 1:1 sitter for safety. Today, patient told me her not taking meds had been part of her suicidality but that now she wants to get better and restart all of her former medications, including Abilify, Zoloft, carbamazepine, as well as the [place] carbonate; I moved the [place] level to AM 07/20/2016 since patient has now missed two doses, but she asserts she will take all of her [place] going forward. Patient told me she plans to join local community center upon discharge and go swimming there regularly; I endorsed this and expressed my hope that she would think of some additional equally beneficial activities ( including social activities) to engage in going forward.
[2016-07-17 15:54] VITALS: BP 136/71
[2016-07-17 19:27] VITALS: BP 137/79
--- NOTE | 2016-07-18 05:39 | NUR ---
PT NOW AGREES TO TAKE MEDS AND ALLOW BLOOD SUGARS TO BE DONE. PT WITH CPAP MACHINE ON IN THE NIGHT. SHE WAS UP X 1. PT APPEARED TO SLEEP WELL.
[2016-07-18 07:46] VITALS: BP 131/61
--- NOTE | 2016-07-18 11:48 | SOCIAL WORKER PROG NOTE PSYCH ---
Social Work Progress Note Progress Note Called Dr. Nye [phone]. He was not aware that Lizeth was feeling suicidal and was surprised to hear that she stopped taking her pills and overdosed. He confirmed her appt. for 08/13/16 at 2:30pm and said if she would like to see him sooner to please call him. Lizeth's sister Nicole came in for a family meeting this afternoon. Lizeth expressed concerns about being on Ativan versus Xanax. She plans to speak with Dr. Tyson about the matter. Nicole is leaving on vacation at the end of next week. She just wants to ensure that Lizeth is ok and safe to return home. She feels that her sister lies and tells people what they want to hear. We talked about a safety plan. Lizeth is agreeable to having her nurse from [facility] prepour her meds for a couple days at a time and lock up the rest in a safe. Lizeth also agreed to start going to the [facility] 3x's a week to swim. She will remain with Dr. Nye for now, but may look for another psychiatrist in the future. She agreed to start therapy again weekly and is looking to reconnect with Micaela Harris [facility] in [place]. Lizeth agreed for me to try and schedule an appt. She hasn't seen her in several months. Talked about who she can call if she feels like hurting herself. She said she would call her friend Sona and if she couldn't reach Sona she wasn't sure. Encouraged her to call crisis or 911. Left a message with Micaela Harris's office. Called Yvonne at [facility] and told her Lizeth was in agreement for prepours. She said they would prepour M,W,F and to call the main office in the morning about her discharge. A night nurse would have to see her tomorrow.
[2016-07-18 12:43] VITALS: BP 133/95
--- NOTE | 2016-07-18 13:20 | NUR ---
PT HAS INCREASED WITH APPROPRIATE SOCIALIZATION AND POSITIVITY. HAS MADE AN EFFORT TO ATTEND GROUPS AND UTILIZE SELF CARE AND SELF SOOTHING TECHNIQUES. PT'S GOAL WAS TO ATTEND GROUPS AND GIVE FEEDBACK. PT IS OBSERVABLY BRIGHT AND MOTIVATED. PT DENIES SI AT THIS TIME.
[2016-07-18 16:27] VITALS: BP 143/77
--- NOTE | 2016-07-18 16:45 | CP SOUTH PROGRESS NOTE PSYCH ---
Psych (Inpt) Progress Note Progress Note Include the following elements, when applicable: Involvement in the active treatment of the patient with behavioral observations of the patient and the patient's response to the treatment. Review of the ongoing treatment process in the context of the treatment plan. Indication of how multi-disciplinary staff members are carrying out the treatment plan. Plans for future interventions and recommendations for revision of the treatment plan. Liaison with other physicians/providers. Progress Note: PSYCHIATRIST NOTE, 07/18/2016: I discussed this patient's progress thus far, current mental status, treatment and discharge planning with staff team today in the daily morning ITTM and also met with her again myself in individual session. Patient continuing in a more cooperative manner today; she had successful meeting with Tasneem Olmos LCSW , and sister. However, patient continues to resist our repeated recommendation that she transition to her previous outpatient treatment through the [facility]; however, patient does riddhi that she will return to see her counselor, Ms. Harris who she had stopped seeing some months ago. Patient has begun to restart on her previously helpful (until she suddenly stopped them all about a month ago ) psychotropic medications and experiencing no side effects thus far. Patient's mood appears to have "switched" to a more positive [id number]; if this is sustained we may be able to discharge her tomorrow.
[2016-07-18 19:50] VITALS: BP 148/72
--- NOTE | 2016-07-18 21:58 | NUR ---
PT IS ISOLATIVE AND WITHDRAWN, MOSTLY STAYING IN BED FOR MAJORITY OF EVENING. TOWARDS ENDS OF EVENING, PT WAS MORE SOCIAL WITH PEERS IN KITCHEN. ATTENDED WRAP UP MEETING AND PARTICIPATED. NO COMPLAINTS OR SI REPORTED. PT HAS A STABLE MOOD AND FLAT AFFECT.
--- NOTE | 2016-07-19 05:51 | NUR ---
PATIENT WAS AWAKE SEVERAL TIMES DURING THE NIGHT, GOING TO THE BATHROOM.
[2016-07-19 07:52] VITALS: BP 117/54
[2016-07-19] MEDS ORDERED: LITHIUM CARBON150 M1 PO (11:10)
[2016-07-19] MEDS ORDERED: LITHIUM CARBON300 M4 PO ×2 (11:19→11:57)
--- NOTE | 2016-07-19 11:27 | DISCHARGE SUMMARY REPORT-PSYCH ---
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 following an overdose on same [employer]); WBC = 7.7; MYCHAL = less than 10.0; urine for drugs of abuse --positive for benzodiazepines (greater than 800.00ng/ml); for further details of all normal range laboratory data from this admission, see the electronic medical record Course Complications: none Consultations: patient was seen for an admission medical H&P by Terry Sánchez M.D., and followed medically during this admission by the hospitalist staff/[facility] medical attending physicians; she was also seen on pulmonary consultation by Saúl Wall M.D. (see consult not in electronic medical record ; he noted recent exacerbation of COPD with steroid taper and recommended better compliance with her BiPAP at night) Allergies: Coded Allergies: codeine (Severe, ITCH 08/09/15) lemon (Severe, SOB 08/09/15) melatonin (Severe, HIVES/RASH 07/16/16) PER . -CG 07/16/16 propranolol (Severe, SHOCK PER PT 08/09/15) Uncoded Allergies: all ashley (Severe, SOB 07/13/16) Hospital Course/TX Response: (see also detailed daily M.All, RETAIL BUSINESS ANALYST and COMPLIANCE COORDINATOR progress notes in the electronic medical record) Initially, patient appeared to be suffering a recurrent bipolar depression in the context of her rapid/abrupt self-discontinuation of Koloa and, in fact, all of her medications, both psychotropic and medical, about 3 weeks [employer], at a time she was planning to go away on a trip [id number], felt well and thought she no longer needed her medications; she may already at that time been hypomanic. We started treatment with re-establishment of previously effective pharmacologic therapies and initiated education around her disorders, treatments , risks/benefits of treatment; we stressed that even if patient wished in future to once again discontinue Koloa she should do so by slow downward titration, never abrupt discontinuation, due to the risk of suffering a "rebound" decompensation associated with rapid withdrawal of that medication. Patient refused repeated recommendation that she make a transition to outpatient treatment through the [facility]. Instead, she planned to return directly to her ongoing periodic appointments with her private psychiatrist, Huber Nye M.D., and to reconnect to her therapist Ms. Harris. Patient's mood lability/irritability gradually resolved and on date of discharge patient was brighter in affect, almost euthymic, clearly not hypomanic, showing no evidence of suicidal or homicidal ideation, plans, intent or impulses and well aware of her safety plan should she ever in future come to believe herself to be at risk to harm herself or others. Discharge HBIPS - Tobacco Use Treatment Offered Post DC Medications Offered: NA-No Tob Use >30 days ("only 3 cigarettes a day") Post DC Tobacco Treatment Plan: [facility] (though says "I'm quitting!") Program Appt Date: 07/25/16 - EtOH/Drug Use D/O Treatment Offered Post DC Medications Offered: NA-No EtOH/Drug Use D/O Post DC EtOH/SubAbuse TX Plan: NA-No EtOH/Drug Use D/O Metabolic Screening - Screen if on a Neuroleptic Medication - Metabolic screening should include: - Blood Pressure, BMI, Glucose or Hgb A1c, & a - Lipid profile from within the past 365 days. Metabolic Screening () Not Applicable, patient not on a neuroleptic. OR ([X]) Patient on a neuroleptic(s) . Enter below results for Glucose or Hemoglobin A1C, and lipid panel if obtained during the last 365 days. BMI: 41.000 Blood Pressure: 134/66 Laboratory Results (If applicable): glucose = 149 (on 07/12/2016) glycos hgb A1c = 11.8 (on 02/16/2016) cholesterol = 167 triglycerides = 494 HDL = 38 LDL = 61 (all drawn on 08/09/2015) Discharge Instructions General Discharge Information Discharge Medications: Discharge Medications (dose, route, frequency, indications): I have called into [facility], [place], [place]., date of discharge (to be delivered today): Zoloft, 100m.5 tabs daily in AM (150mg/day); #21 with no refill (anti- depressant) Koloa carbonate, 300mg: i in AM and ii in PM (900mg/day); #42 with no refill (stabilize mood) Tegretol, 200mg: i tab 3x/day (600mg daily); #42 with no refill (stabilize mood) Abilify, 15mg: i nightly at HS (15mg/night); #14 with no refill (clarify thinking) Remeron, 7.5mg: i HS (7.5mg/night); #14 with no refill (promote sleep) Neurontin, 300mg: i 4x/day PRN (max. 1,200mg a day); #56 with no refill ( discomfort/anxiety/DFA) (I spoke with patient several times during this admission regarding my strong recommendation that she not resume the use of Xanax following discharge; we had switched her over to Ativan and tapered the latter away over the course of this admission without complications; this was quite well-tolerated by patient with no subjective or objective S/S of significant benzodiazepine withdrawal; patient is well aware of the addictive potential of benzos. and possible intensification of depressive symptoms and impulsivity as well.) (I had offered patient nicotine patch and gum which she refused during this admission, as well as at the time of discharge; I did give her an appointment card for the next [facility] scheduled for 07/25/2016 at 4pm, facilitated by Serina Jackson LCSW.) Multiple Neuroleptics: ([X]) Not Applicable OR Document below three failed attempts at monotherapy, or a plan to taper to monotherapy, or augmentation of Clozapine. () Patient's Diet: consistent carbohydrate 1 Patient's Activity: without restrictions DC Disposition: to home Recommendations: I would recommend patient reconsider her refusal during this admission to begin her aftercare in the [facility]. Following an interval of outpatient stabilization on mood stabilizers and anti-depressant it might be possible to begin slow tapering down on dose of Abilify. Referred To: Patient will be returning directly to her preadmission appointments with Huber Nye M.D., who she plans to call for a sooner appointment. She also is going to contact her former therapist, Ms. Harris, in order to re-establish visits with her. A nurse from [facility] will visit patient at home on the afternoon of discharge and re-establish regular home visits. She was also given a card for the next [facility] on 07/25/2016 at 4pm, facilitated by Serina Jackson LCSW. Copies To: NIKI ZUNIGA,HUBER; XIOMARA ZUNIGA,SAÚL
--- NOTE | 2016-07-19 11:27 | CP SOUTH PROGRESS NOTE PSYCH ---
Psych (Inpt) Progress Note Progress Note Include the following elements, when applicable: Involvement in the active treatment of the patient with behavioral observations of the patient and the patient's response to the treatment. Review of the ongoing treatment process in the context of the treatment plan. Indication of how multi-disciplinary staff members are carrying out the treatment plan. Plans for future interventions and recommendations for revision of the treatment plan. Liaison with other physicians/providers. Progress Note: PSYCHIATRIST NOTE (DISCHARGE), 07/19/2016: I discussed this patient's significant progress to date, current mental status, treatment and discharge plans with staff team today in the daily morning ITTM and met with him again in individual session prior to discharging her to resume her ongoing outpatient appointments with her private psychiatrist, Huber Nye M.D.; though she has an appointment scheduled to see Dr. Nye in a few weeks she plans to call him for an earlier appointment. Patient also plans to resume her appointments with Ms. Harris who she had been seeing up until a few months ago. She will be seen later today at home by visiting nurse from [facility]. Patient repeatedly refused to consider making a transition back to outpatient treatment through [facility], but did say she would consider it if depressive mood returns and intensifies despite restarting her psychotropic medications (which she promised to continue taking and speak with her prescriber about prior to even changing the doses of any). Patient showed no current evidence of suicidal or homicidal ideation, plans, intent or impulses and is well aware of her safety plan should she ever in future again feel at risk for self-harm. I have called into [facility], [place], [place]., date of discharge (to be delivered today): Zoloft, 100m.5 tabs daily in AM (150mg/day); #21 with no refill (anti- depressant) [place] carbonate, 300mg: i in AM and ii in PM (900mg/day); #42 with no refill (stabilize mood) Tegretol, 200mg: i tab 3x/day (600mg daily); #42 with no refill (stabilize mood) Abilify, 15mg: i nightly at HS (15mg/night); #14 with no refill (clarify thinking) Remeron, 7.5mg: i HS (7.5mg/night); #14 with no refill (promote sleep) Neurontin, 300mg: i 4x/day PRN (max. 1,200mg a day); #56 with no refill ( discomfort/anxiety/DFA) (I spoke with patient several times during this admission regarding my strong recommendation that she not resume the use of Xanax following discharge; we had switched her over to Ativan and tapered the latter away over the course of this admission without complications; this was quite well-tolerated by patient with no subjective or objective S/S of significant benzodiazepine withdrawal; patient is well aware of the addictive potential of benzos. and possible intensification of depressive symptoms and impulsivity as well.) (I had offered patient nicotine patch and gum which she refused during this admission, as well as at the time of discharge; I did give her an appointment card for the next [facility] scheduled for 07/25/2016 at 4pm, facilitated by Serina Jackson LCSW.)
[2016-07-19] MEDS ORDERED: GABAPENTIN300 M2 PO (11:55)
[2016-07-19] MEDS ORDERED: CARBAMAZEPINE100 M2 PO (11:55)
[2016-07-19] MEDS ORDERED: SERTRALINE HCL50 MG PO (11:56)
[2016-07-19] MEDS ORDERED: ABILIFY15 M1 PO (11:56)
[2016-07-19] MEDS ORDERED: REMERON15 M2 PO (11:56)
[2016-07-19 12:11] VITALS: BP 134/66
--- NOTE | 2016-07-19 13:33 | NUR ---
PT PRESENT ON THE UNIT AND INTERACTING WITH PEERS AND STAFF APPROPRIATELY, NO ISSUES OR COMPLAINTS REPORTED OR OBSERVED, WHEN ASKED DIRECTLY DENIES SI/HI/HALLUCINATION. HAS + UNDERSTANDING OF MEDICATION REGIMENT AND FOLLOW-UP DISCHARGE INSTRUCTIONS AND MOTIVATION, MOOD STABLE WITH FULL RANGE AFFECT. INFORMATION PACKET RE: SI & BIPOLAR GIVEN AND PT RESOURCE GUIDE REVIEWED ALONG WITH W-10 AND VERBALIZED UNDERSTANDING AND DENIED ANY QUESTIONS. REPORTS OVERALL IMPROVEMENT IN MOOD, SLEEP, BEHAVIOR AND APPETITE AND READY FOR DISCHARGE TODAY AFTER HAVING A + FAMILY MEETING THIS WEEK, ALREADY MET WITH TEAM AND SCHEDULED TO LEAVE.
--- NOTE | 2016-07-19 16:43 | SOCIAL WORKER PROG NOTE PSYCH ---
Social Work Progress Note Progress Note Called [facility] this morning and informed them that Lizeth was discharging today. Someone will come by this evening to see her. Micaela Salinas [facility] returned the call, leaving a message that she remembers working with Lizeth a couple of times and stated she didn't seem vested in therapy at the time. She said she would be willing to talk to me at 3pm today. I informed Lizeth of the message and encouraged her to follow up with calling Micaela and stressed the importance of her talking to someone. Liezth said she would call her. I let her know [facility] will see her today to help get her meds set up. Lizeth waited outside for her sister to pick her up.
== END 2016-07-19 13:20 | DRG 885 ==
LOC: ENRESERVDT → ENRESERVTM → CP SOUTH 20:10
PROVIDERS: ADMIT Psychiatry & Neurology Addiction Medicine
DX: F31.9 Bipolar disorder, unspecified (principal); E11.9 Type 2 diabetes mellitus without complications; E03.9 Hypothyroidism, unspecified; F13.188 Sedative, hypnotic or anxiolytic abuse with other sedative, hypnotic or anxiolytic-induced disorder; J45.909 Unspecified asthma, uncomplicated
CPT/HCPCS: 36415; J3490

== ENCOUNTER 2016-09-17 10:07 | Inpatient (IN) | payer OTHER, MEDICARE ==
[~2016-09-17] VITALS: Ht 157.5 cm; Wt 102.1 kg
[~2016-09-17 10:07] MED LIST changes: +ABILIFY15 M1 PO; +CARBAMAZEPINE100 M2 PO; +GABAPENTIN300 M2 PO; +LITHIUM CARBON150 M1 PO; +LORAZEPAM1 M1 PO; +REMERON15 M2 PO; +SERTRALINE HCL50 MG PO
--- NOTE | 2016-09-17 10:15 | NUR ---
50 YO FEMALE TO TRIAGE STATES SHE WAS SENT IN BY HER VISING NURSE BECAUSE "SHE DIDNT LIKE THE WAY I LOOK" STATES SHE HAS BEEN FEELING LETHARGIC AND SHORT OF BREATHE. STATES SHE WEARS OXYGEN AT NIGHTTIME. RA SATS 95-96%. DENIES CHEST PAIN. DENIES ABD PAIN.
[2016-09-17 11:50] LABS: ABSOLUTE BASOPHIL COUNT 0.1 /CUMM (0.0-0.2); ABSOLUTE EOSINOPHIL COUNT 0.3 /CUMM (0.0-0.7); ABSOLUTE GRANULOCYTE CT 8.4 /CUMM (1.4-6.5); ABSOLUTE LYMPH COUNT 1.8 /CUMM (1.2-3.4); ABSOLUTE MONOCYTE COUNT 0.4 /CUMM (0.10-0.60); BASOPHIL % 0.5 % (0.0-2.0); EOSINOPHIL % 2.7 % (0-5); GRANULOCYTE % 76.8 % (42.2-75.2); HEMATOCRIT 42.1 % (37-47); MEAN CORPUSCULAR HGB 29.6 PG (27.0-31.0); MEAN CORPUSCULAR HGB CONC 32.4 G/DL (33.0-37.0); MEAN CORPUSCULAR VOLUME 91.4 FL (81.0-99.0); MEAN PLATELET VOLUME 9.3 FL (7.4-10.4); PLATELET COUNT 327 /CUMM (130-400); RED BLOOD CELL CT 4.61 /CUMM (4.20-5.40); WHITE BLOOD CELL COUNT 10.9 /CUMM (4.8-10.8)
--- NOTE | 2016-09-17 11:56 | ED DYSPNEA/ASTHMA COMPLAINT ---
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 -CG 07/16/16 propranolol (Severe, SHOCK PER PT 08/09/15) Uncoded Allergies: all ashley (Severe, SOB 07/13/16) Reconcile Medications Albuterol Sulfate (Proair Hfa) 8.5 GM HFA.AER.AD 1-2 PUF INH Q4-6 PRN PRN COPD (Reported) Aripiprazole (Abilify) 15 MG TABLET 15 MG PO 2200 clarify thoughts Aspirin (Ecotrin*) 81 MG TABLET.DR 1 TAB PO QAM HEART/BLOOD (Reported) Atorvastatin Calcium (Lipitor) 40 MG TABLET 1 TAB PO QHS CHOLESTEROL ( Reported) Budesonide/Formoterol Fumarate (Symbicort 160-4.5 Mcg Inhaler) 10.2 GM HFA.AER.AD 2 PUF INH BID COPD (Reported) Carbamazepine 100 MG TAB.CHEW 200 MG PO 0800,1700,2000 mood stabilization Ergocalciferol (Vitamin D2) (Vitamin D2) 50,000 UNIT CAPSULE 1 CAP PO QTHURS SUPPLEMENT (Reported) Fenofibrate Nanocrystallized (Fenofibrate) 145 MG TABLET 1 TAB PO DAILY CHOLESTEROL/TRIGLYCERIDES (Reported) Fluticasone Propionate 16 GM SPRAY.SUSP 2 SPRAY NASB DAILY ALLERGIES ( Reported) Folic Acid 1 MG TABLET 1 TAB PO QAM SUPPLEMENT (Reported) Furosemide 20 MG TABLET 1.5 TAB PO DAILY FLUID (Reported) Gabapentin 300 MG CAPSULE 300 MG PO Q4H PRN trigeminal neuralgia/neuropathy Insulin Glargine,Hum.rec.anlog (Lantus Solostar) 100 UNIT/ML (3 ML) INSULN.PEN 22 UNIT SC QPM DM (Reported) Levothyroxine Sodium 50 MCG TABLET 1 TAB PO DAILY THYROID (Reported) Linaclotide (Linzess) 145 MCG CAPSULE 1 CAP PO QAM CIC (Reported) [place] Carbonate 150 MG CAPSULE 600 MG PO 2000 mood stabilization [place] Carbonate 300 MG CAPSULE 600 MG PO QPM mood stabilization [place] Carbonate 300 MG CAPSULE 300 MG PO 0800 mood stabilization Metformin HCl 1,000 MG TABLET 1 TAB PO BID DIABETES (Reported) Mirtazapine (Remeron) 15 MG TABLET 7.5 MG PO AT BEDTIME sleep/anxiety at night Nitroglycerin (Nitrostat) 0.4 MG TAB.SUBL 1 TAB SL AD PRN CHEST PAIN 1st sign of attack; may repeat every 5 minutes until relief; if pain persists after 3 tablets in 15 minutes, prompt medical att Pantoprazole Sodium (Protonix) 40 MG TABLET.DR 1 TAB PO DAILY GERD (Reported) Sertraline HCl 50 MG TABLET 150 MG PO 0800 anti-depressant Triage Note: 50 YO FEMALE TO TRIAGE STATES SHE WAS SENT IN BY HER VISING NURSE BECAUSE "SHE DIDNT LIKE THE WAY I LOOK" STATES SHE HAS BEEN FEELING LETHARGIC AND SHORT OF BREATHE. STATES SHE WEARS OXYGEN AT NIGHTTIME. RA SATS 95-96%. DENIES CHEST PAIN. DENIES ABD PAIN. Triage Nurses Notes Reviewed? yes Onset: several days Duration: day(s):, constant, continues in ED Timing: recent history Severity: moderate, severe Activities at Onset: activity Prior Episodes/Possible Cause: frequent episodes Modifying Factors: Improves With: rest. Worsens With: movement. Associated Symptoms: cough, loss of appetite, wheezing, weakness LMP (ages 10-50): post menopausal : No Patient currently breastfeeds: No HPI: 3 days prior to admission patient complains of productive cough wheezing progressive weakness anorexia dyspnea on exertion unable to walk usual distances with walker. She denies fever chills nausea vomiting diarrhea abdominal pain dysuria rash headache bleeding. Past History Travel History Traveled to [place] past 21 day No Medical History Any Pertinent Medical History? see below for history Neurological: dizziness, peripheral neuropathy, TIA, TRIGEMINAL NEURALGIA NEUROPATHY gait disturbance (uses a walker); ?neurological basis EENT: NONE Cardiovascular: angina (hx "atypical chest pain" ), hypertension, hyperlipidemia , HIGH TRYGLCERIDES recent cardiac catheterizations were negative for occlusive coronary artery disease PERICARDITIS Respiratory: asthma, bronchitis, obstructive sleep apnea, pneumonia, BIPAP Gastrointestinal: ACID REFLUX CONSTIPAT- CHRONIC/IDEOPA ABDOMINAL HERNIA Hepatic: CHOLELITHIASIS CHOLECYSTECTOMY Renal: NONE Musculoskeletal: R ANKLE FX AND REPAIR Psychiatric: anxiety, bipolar disease, depression, opioid dependence, substance abuse (possible benzo. 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 No Review of Systems Review of Systems Constitutional: Reports: see HPI, weakness. EENTM: Reports: no symptoms. Respiratory: Reports: see HPI, cough, short of breath, sputum production, wheezing. Cardiovascular: Reports: no symptoms. GI: Reports: no symptoms. Genitourinary: Reports: no symptoms. Musculoskeletal: Reports: no symptoms. Skin: Reports: no symptoms. Neurological/Psychological: Reports: no symptoms. Hematologic/Endocrine: Reports: no symptoms. Immunologic/Allergic: Reports: no symptoms. All Other Systems: Reviewed and Negative Physical Exam Physical Exam General Appearance: well developed/nourished, alert, awake, anxious, moderate distress, obese Head: atraumatic, normal appearance Eyes: Bilateral: normal appearance, PERRL, EOMI. Ears, Nose, Throat: normal pharynx, normal ENT inspection Neck: normal inspection, supple, full range of motion, no midline tenderness Respiratory: normal breath sounds, chest non-tender, no respiratory distress, quiet respiration, lungs clear Cardiovascular: regular rate/rhythm, normal peripheral pulses, norml femoral pulses equa Peripheral Pulses: 4+ carotid (R), 4+ carotid (L) Gastrointestinal: normal bowel sounds, soft, non-tender, no organomegaly Extremities: normal inspection, normal capillary refill Neurologic/Psych: no motor/sensory deficits, awake, alert, oriented x 3, normal mood/affect, 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 No Severe Sepsis Present: No Septic Shock Present: No Progress Differential Diagnosis: asthma, bronchitis, CHF, COPD, pneumonia Plan of Care: Orders Procedure Date/time Status Regular Diet 09/17 L Active Patient Data 09/17 1353 Active OXYGEN SETUP (GEN) 09/17 130 Active Saline Lock 09/17 1305 Active Admit to inpatient 09/17 1305 Active Vital Signs 09/17 1305 Active Activity/Ambulation 09/17 1305 Active BLOOD CULTURE 09/17 1305 Active Code Status 09/17 130 Active Intake & Output 09/17 1139 Active TROPONIN LEVEL 09/17 110 Complete MAGNESIUM 09/17 110 Complete COMPREHENSIVE METABOLIC PANEL 09/17 110 Complete CBC WITHOUT DIFFERENTIAL 09/17 110 Complete B-TYPE NATRIURETIC PEP (BNP) 09/17 110 Complete Current Medications Sig/Ralph Start time Last Medication Dose Stop Time Status Admin Doxycycline Hyclate 100 MG ONCE ONE 09/17 1315 AC 09/17 (Vibramycin) 09/17 1420 1346 Sodium Chloride 100 ML (Normal Saline 0.9%) Laboratory Tests 09/17/16 1140: Anion Gap 11, Estimated GFR > 60, BUN/Creatinine Ratio 22.9, Glucose 128 H, Calcium 9.7, Magnesium 2.0, Total Bilirubin 0.3, AST 14, ALT 34, Alkaline Phosphatase 56, Troponin I < 0.01, Sja-T-Emkxxthqgwq Pept 151 H, Total Protein 7.5, Albumin 5.0, Globulin 2.5, Albumin/Globulin Ratio 2.0, CBC w Diff NO MAN DIFF REQ, RBC 4.61, MCV 91.4, MCH 29.6, RDW 14.0, MPV 9.3, Gran % 76.8 H, Lymphocytes % 16.7 L, Monocytes % 3.3, Eosinophils % 2.7, Basophils % 0.5, Absolute Granulocytes 8.4 H, Absolute Lymphocytes 1.8, Absolute Monocytes 0.4, Absolute Eosinophils 0.3, Absolute Basophils 0.1, PUBS MCHC 32.4 L Microbiology 09/17 1335 BLOOD: Blood Culture - RECD 09/17 1328 BLOOD: Blood Culture - RECD Diagnostic Imaging: Viewed by Me: Radiology Read. Discussed w/RAD: Radiology Read. CXR Impression: Left lower lobe opacity question atelectasis. Mild cardiomegaly with suspicion for mild pulmonary vascular congestion. Initial ED EKG: none Rhythm Strip: normal sinus rhythm Departure Departure Time of Disposition: 1200 Disposition: STILL A PATIENT Condition: Stable Clinical Impression Primary Impression: Pneumonia Qualifiers: Pneumonia type: due to unspecified organism Laterality: left Lung location: lower lobe of lung Qualified Code: J18.1 - Lobar pneumonia, unspecified organism Secondary Impressions: COPD with exacerbation Referrals: KENNY STEVENS D.O. (PCP/Family) Departure Forms: Customer Survey General Discharge Information Admission Note Spoke With: RAMIRO ZUNIGA,COLTEN Stewart Documentation of Exam: Documentation of any treatments & extenuating circumstances including Concerns Regarding Discharge (functional status, medication knowledge or non-compliance, living conditions, etc.) that warrant an admission rather than observation: Supplemental oxygen serial beta agonist nebs pulmonary evaluation IV steroids IV antibiotics medication adjustment continuing care discharge planning Critical Care Note Critical Care Note Critical Care Time: non-applicable
--- NOTE | 2016-09-17 12:09 | NUR ---
RESP AT BEDSIDE
--- NOTE | 2016-09-17 12:28 | RADIOLOGY REPORT ---
EXAMINATION: XR PORTABLE CHEST CLINICAL INFORMATION: COPD with SOB. COMPARISON: Chest 09/11/2016. TECHNIQUE: Portable frontal view of the chest was obtained. FINDINGS: There is mild thyromegaly with mild prominent pulmonary vascularity question mild congestion. Both lungs are well-opacified with h patchy opacity in left lung base retrocardiac area question atelectasis. The lungs are clear. IMPRESSION: Left lower lobe opacity question atelectasis. Mild cardiomegaly with suspicion for mild pulmonary vascular congestion.
--- NOTE | 2016-09-17 13:51 | NUR ---
IV ABT INFUSING, PT STATES THAT SHE HAS NON PRODUCTIVE COUGH FOR OVER A WEEK, HISTORY OF COPD AND STATES THAT SHE STILL SMOKES ONCE AND AWHILE. PT AMBULATES WITH A WALKER, STATES THAT SHE HAS PERIPHERAL NEUROPATHY AND NEEDS WALKER TO AMBULATE.
--- NOTE | 2016-09-17 14:31 | NUR ---
BED ASSIGNMENT 216-2
--- NOTE | 2016-09-17 14:33 | NUR ---
IV ABT INFUSING , PT OFFERS NO COMPLAINTS AT THIS TIME
--- NOTE | 2016-09-17 14:46 | NUR ---
REPORT TO 2N (JOSE A GALAN).
--- NOTE | 2016-09-17 15:48 | NUR ---
PT TO FLOOR
--- NOTE | 2016-09-17 16:22 | History & Physical ---
RAN ZUNIGA,TUNDE 09/17/16 1011: General Information and HPI MD Statement: I have seen and personally examined DAIJA DONAHUE and documented this H&P. The patient is a 50 year old F who presented with a patient stated chief complaint of []. Source of Information: patient, old records Exam Limitations: no limitations History of Present Illness: Patient is a 50 y/o F active smoker, with significant PMH of active smoker,COPD (2 L oxygen), obstructive sleep apnea, obesity,HTN,HL,diabetes mellitus, coronary arterial disease, migraine headaches,PTSD, anxiety, depression,bipolar disorder, Hx of suicidal intent-ingestion of her prescribed medications (lithium , Zoloft, Xanax, ibuprofen and Lantus),ovarian cancer status post hysterectomy, GERD, hypothyroidism presented with chief c/o SOB and cough. According to patient she had an episode of allergic congestion and inflammation of both eyes, a week ago. So she went to see her PCP. He prescribed her Prednisone 40mg X 5 days. During this time she also started having generalized body ache, runny nose and SOB on exertion. She took whole course of prednisone but despite her SOB, didnt recovered. Today her visiting nurse told her that she looks much tired, and diffrent than usual. So she is here. Denies fever, Nausea, vomting, chest pain, abd pain, constipation, diarrhea. She is also c/o headache, which is diffrent than migraine. It is located on left side of head,al, intermittent , 4 -10/10 in severity. She is taking Advil , around 9 -10 tab a day, with slight relief. Denies Symptoms like sinusitis, trauma, blurry vision. Personal Hx - Smokes 1-2 PPD, since teenage, also does have exposure at home. She uses BIPAP at night with 2L oxygen, denies alcohol and illicit drug use. Allergies - Inderal,codeine, cocconut. Allergies/Medications Allergies: Coded Allergies: codeine (Severe, ITCH 08/09/15) lemon (Severe, SOB 08/09/15) melatonin (Severe, HIVES/RASH 07/16/16) PER . -CG 07/16/16 propranolol (Severe, SHOCK PER PT 08/09/15) Uncoded Allergies: all ashley (Severe, SOB 07/13/16) Past History Travel History Traveled to [place] past 21 day No Medical History Neurological: dizziness, peripheral neuropathy, TIA, TRIGEMINAL NEURALGIA NEUROPATHY gait disturbance (uses a walker); ?neurological basis EENT: NONE Cardiovascular: angina (hx "atypical chest pain" ), hypertension, hyperlipidemia , HIGH TRYGLCERIDES recent cardiac catheterizations were negative for occlusive coronary artery disease PERICARDITIS Respiratory: asthma, bronchitis, obstructive sleep apnea, pneumonia, BIPAP Gastrointestinal: ACID REFLUX CONSTIPAT- CHRONIC/IDEOPA ABDOMINAL HERNIA Hepatic: CHOLELITHIASIS CHOLECYSTECTOMY Renal: NONE Musculoskeletal: R ANKLE FX AND REPAIR Psychiatric: anxiety, bipolar disease, depression, opioid dependence, substance abuse (possible benzo. 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 Ambulation: independent IADLs Independent: shopping, housework, finances, food prep, telephone, transportation , medication admin. Review of Systems Review of Systems Constitutional: Denies: no symptoms. Cardiovascular: Denies: chest pain. Respiratory: Reports: cough, short of breath, wheezing. Denies: hemoptysis, orthopnea, sputum production, stridor. GI: Denies: no symptoms. Genitourinary: Denies: no symptoms. Neurological/Psychological: Denies: no symptoms. Exam & Diagnostic Data Last 24 Hrs of Vital Signs/I&O Vital Signs Date Time Temp Pulse Resp B/P B/P Pulse O2 O2 Flow FiO2 Mean Ox Delivery Rate 09/17 2225 98.4 59 18 140/70 92 Room Air 09/17 1635 98.3 74 18 142/48 93 Room Air 09/17 1433 98.1 72 20 140/77 95 Room Air 09/17 1303 97.4 78 20 144/64 94 09/17 1207 95 Room Air 09/17 1157 91 09/17 1013 96.3 62 18 146/83 95 Room Air Intake & Output 09/17 1600 09/17 0800 09/17 0000 Intake Total 10 Output Total Balance 10 Intake, IV 10 Patient 102.058 kg Weight Weight Reported by Patient Measurement Method Physical Exam General Appearance Alert, Oriented X3, Cooperative, No Acute Distress Skin bilateral lower leg rash, pin point, generalized over leg HEENT Atraumatic, PERRLA, EOMI, left side of external ear showed whitish patches ? bar, both sided tympanic membranes are perforated. Neck Supple, No JVD Cardiovascular Normal S1, Normal S2 Lungs bilateral air entry with ocassional whezzing Abdomen Soft, distended, scar morales present Neurological Normal Speech Extremities No Clubbing, No Cyanosis, No Edema Vascular Normal Pulses, Pulses Symmetrical Last 24 Hrs of Labs/Matthieu: Laboratory Tests 09/17/16 1140: Anion Gap 11, Estimated GFR > 60, BUN/Creatinine Ratio 22.9, Glucose 128 H, Calcium 9.7, Magnesium 2.0, Total Bilirubin 0.3, AST 14, ALT 34, Alkaline Phosphatase 56, Troponin I < 0.01, Oel-D-Jqxwbxncwwm Pept 151 H, Total Protein 7.5, Albumin 5.0, Globulin 2.5, Albumin/Globulin Ratio 2.0, CBC w Diff NO MAN DIFF REQ, RBC 4.61, MCV 91.4, MCH 29.6, RDW 14.0, MPV 9.3, Gran % 76.8 H, Lymphocytes % 16.7 L, Monocytes % 3.3, Eosinophils % 2.7, Basophils % 0.5, Absolute Granulocytes 8.4 H, Absolute Lymphocytes 1.8, Absolute Monocytes 0.4, Absolute Eosinophils 0.3, Absolute Basophils 0.1, PUBS MCHC 32.4 L Microbiology 09/17 1335 BLOOD: Blood Culture - RECD 09/17 1328 BLOOD: Blood Culture - RECD Diagnostic Data EKG Results NSR CXR Results Left lower lobe opacity question atelectasis. Assessment/Plan Assessment: Patient is a 50 y/o F active smoker, with significant PMH of active smoker,COPD (2 L oxygen), obstructive sleep apnea, obesity,HTN,HL,diabetes mellitus, coronary arterial disease, migraine headaches,PTSD, anxiety, depression,bipolar disorder, Hx of suicidal intent-ingestion of her prescribed medications (lithium , Zoloft, Xanax, ibuprofen and Lantus),ovarian cancer status post hysterectomy, GERD, hypothyroidism presented with chief c/o SOB and cough. 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 Diet - Heart Healthy Diet/ Carbohydrate type 3 Diet DVT PPX - ALPS/Heparin Code Status - DNR/DNI As Ranked By This Provider Problem List: 1. Nicotine dependence 2. Mood disorder 3. Hyperlipidemia 4. Hypothyroidism 5. CAD (coronary artery disease) 6. COPD exacerbation Core Measures/Miscellaneous Acute Coronary Syndrome ACS Diagnosis: No Cerebrovascular Accident CVA/TIA Diagnosis: No Congestive Heart Failure CHF Diagnosis: No Venous Thromboembolism VTE Risk Factors: Age > 40, Obesity, Smoking No [facility] VTE prophylaxis d/t: No contraindications No VTE Pharm Prophylaxis d/t: No contraindications VTE Diagnosis: No VTE Type: NONE VTE Confirmed by (Test): NONE Severe Sepsis Severe Sepsis Present: No Septic Shock Septic Shock Present: No Miscellaneous Documentation Attending Case Discussed With: Dr Chanel Primary Care Physician: KENNY STEVENS D.O. 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 [employer] Agricultural Agent - Dr Wall Psychiatrist - Dr Camacho Level of Patient Care: General Medicine MORALES ZUNIGA,[facility] 09/17/16 0949: General Information and HPI Allergies/Medications Home Med list Albuterol Sulfate (Proair Hfa) 8.5 GM HFA.AER.AD 1-2 PUF INH Q4-6 PRN PRN COPD (Reported) Aripiprazole (Abilify) 15 MG TABLET 15 MG PO 2200 clarify thoughts Aspirin (Ecotrin*) 81 MG TABLET.DR 1 TAB PO QAM HEART/BLOOD (Reported) Atorvastatin Calcium (Lipitor) 40 MG TABLET 1 TAB PO QHS CHOLESTEROL ( Reported) Budesonide/Formoterol Fumarate (Symbicort 160-4.5 Mcg Inhaler) 10.2 GM HFA.AER.AD 2 PUF INH BID COPD (Reported) Carbamazepine 100 MG TAB.CHEW 200 MG PO 0800,1700,2000 mood stabilization Ergocalciferol (Vitamin D2) (Vitamin D2) 50,000 UNIT CAPSULE 1 CAP PO QTHURS SUPPLEMENT (Reported) Fenofibrate Nanocrystallized (Fenofibrate) 145 MG TABLET 1 TAB PO DAILY CHOLESTEROL/TRIGLYCERIDES (Reported) Fluticasone Propionate 16 GM SPRAY.SUSP 2 SPRAY NASB DAILY ALLERGIES ( Reported) Folic Acid 1 MG TABLET 1 TAB PO QAM SUPPLEMENT (Reported) Furosemide 20 MG TABLET 1.5 TAB PO DAILY FLUID (Reported) Gabapentin 300 MG CAPSULE 300 MG PO Q4H PRN trigeminal neuralgia/neuropathy Insulin Glargine,Hum.rec.anlog (Lantus Solostar) 100 UNIT/ML (3 ML) INSULN.PEN 22 UNIT SC QPM DM (Reported) Levothyroxine Sodium 50 MCG TABLET 1 TAB PO DAILY THYROID (Reported) Linaclotide (Linzess) 145 MCG CAPSULE 1 CAP PO QAM CIC (Reported) [place] Carbonate 300 MG CAPSULE 600 MG PO QPM mood stabilization [place] Carbonate 300 MG CAPSULE 300 MG PO 0800 mood stabilization Metformin HCl 1,000 MG TABLET 1 TAB PO BID DIABETES (Reported) Mirtazapine (Remeron) 15 MG TABLET 7.5 MG PO AT BEDTIME sleep/anxiety at night Pantoprazole Sodium (Protonix) 40 MG TABLET. 1 TAB PO DAILY GERD (Reported) Sertraline HCl 50 MG TABLET 150 MG PO 0800 anti-depressant Resident Review Statement Resident Statement: examined this patient, discussed with finance intern, agreed with finance intern Other Findings: The patient is a 50 year old woman with a past medical history of migraine, diabetes, peripheral and trigeminal neuropathy, HTN, cardiac catheterization negative for CAD, pericarditis, COPD, SHIRIN on bipap and oxygen at night, bipolar disorder, HTN, NSTEMI, CAD, Diastolic CHF, Mitral regurg, COPD, SHIRIN, gout, hypothyroidism, obesity. She presents with today with complaints of worsening shortness of breath and wheezing for the past 3 days with non productive cough. Also had sore throat and upper respiratory allergy sympotoms with eye swelling requiring 5 days of prednisone thrapy last week. In addition, she has dyspnea on walking with her walker. Denies fever, chills or malaise. Physical Exam General Appearance: Middle aged woman, obese, awake and alert, oriented X3, in mild respiratory distress HEENT: PERRLA, EOMI, Mucous Membr. moist/pink Neck: Supple, +2 Carotid Pulse wo Bruit, No JVD Cardiovascular: Regular Rate, Normal S1, Normal S2, No Murmurs Lungs: Bilateral scattered wheeze,Normal air entry bilaterally Abdomen: Normal Bowel Sounds, Soft, No Tenderness Extremities: No Cyanosis, Normal Pulses, No pedal edema Labs are significant for negative troponin, ProBNp of 151. Imaging shows CXR with Left lower lobe opacity and mild pulmonary congestion Problem list 1. COPD exacerbation 2. Diabetes mellitus 3. Bipolar disorder 4. SHIRIN on Bipap and nocturnal O2 5. Hypothyroidism 6. Hypertension Plan Admit to general medicine Hold antibiotics for now as patient does not show signs of infection. Monitor electrolytes and fluid input and output TRC evaluation for nebulizer therapy IV azithromycin 500 mg daily IV solumedrol 40 mg Q 8 hrs Continue home medications for COPD- symbicort Continue other home medications Continue levemir 22 units at bedtime for diabetes Accucheks TIDAC/HS Novolog sliding scale medium dose TIDAC/HS Continue home medications for bipolar disorder, hypothyroidism and hypertension DVT prophylaxis SC lovenox 40 mg daily Diabetic Cons Carb diet 3 diet Code status is DNR/DNI
[2016-09-17 16:35] VITALS: BP 142/48
--- NOTE | 2016-09-17 16:42 | Admission Certification ---
Admission Certification Certification Statement - As attending physician, I certify that at the time of - admission, based on clinical presentation, severity of - symptoms, need for further diagnostic testing and - therapeutic interventions, and risk of adverse outcomes - without in-hospital treatment, in my clinical assessment, - this patient requires an acute hospital stay for a minimum - of two nights or longer. I have also considered psychsocial - factors such as support system, advanced age, financial - issues, cognitive issues, and failed out-patient treatments, - past re-admission history, safety of patient, and lack of - compliance as applicable. Specific rationale supporting this admission is: acute copd exacerbation
--- NOTE | 2016-09-17 16:45 | PN- Att Addend ---
Attending MD Review Statement Attending Statement Attending MD Statement: examined this patient, discuss w/resident/PA/NETWORK SUPPORT ENGINEER, agreed w/resident/PA/NETWORK SUPPORT ENGINEER, reviewed EMR data (avail), discussed w/nursing Attending Assessment/Plan: Laboratory Tests 09/17/16 1140: Anion Gap 11, Estimated GFR > 60, BUN/Creatinine Ratio 22.9, Glucose 128 H, Calcium 9.7, Magnesium 2.0, Total Bilirubin 0.3, AST 14, ALT 34, Alkaline Phosphatase 56, Troponin I < 0.01, [id number] Pept 151 H, Total Protein 7.5, Albumin 5.0, Globulin 2.5, Albumin/Globulin Ratio 2.0, CBC w Diff NO MAN DIFF REQ, RBC 4.61, MCV 91.4, MCH 29.6, RDW 14.0, MPV 9.3, Gran % 76.8 H, Lymphocytes % 16.7 L, Monocytes % 3.3, Eosinophils % 2.7, Basophils % 0.5, Absolute Granulocytes 8.4 H, Absolute Lymphocytes 1.8, Absolute Monocytes 0.4, Absolute Eosinophils 0.3, Absolute Basophils 0.1, PUBS MCHC 32.4 L Vital Signs Date Time Temp Pulse Resp B/P B/P Pulse O2 O2 Flow FiO2 Mean Ox Delivery Rate 09/17 1635 98.3 74 18 142/48 93 Room Air 09/17 1433 98.1 72 20 140/77 95 Room Air 09/17 1303 97.4 78 20 144/64 94 09/17 1207 95 Room Air 09/17 1157 91 09/17 1013 96.3 62 18 146/83 95 Room Air Patient seen and examined at bedside in the ER. Discussed with patient the care plan. 50-year-old female with past medical history of COPD and previous pulmonary function tests showing both obstructive and restrictive [place] and who is an active smoker presented to the ER with chief complaint of shortness of breath on exertion and cough . acute COPD exacerbation-patient received IV steroids and nebulizer treatments in the ER and currently her wheezing is much better and her shortness of breath is much better. We will admit her to medicine and will start her on IV steroids 40 mg every 8 hours and will start her on azithromycin for 3 days. Discussed with patient the care plan in detail. Counseled her against smoking. Patient still smokes about half a pack a day and has a significant exposure to passive smoking at home. Patient does not want any nicotine patches or nicotine gum that were offered to her. Her chest x-ray was reviewed and it does not show white that she has pneumonia but she does have cough but which is nonproductive.
--- NOTE | 2016-09-17 22:03 | Event Note ---
Event Note Event Note: Pt complains of headache, not relieved with motrin. Tylenol has not helped in the past, will give 1Xfioricet.
[2016-09-17 22:25] VITALS: BP 140/70
--- NOTE | 2016-09-18 00:55 | NUR ---
1605 PATIENT ARRIVED TO FLOOR ALERT AND ORIENTED X 3. ON ROOM AIR. DENIES SHORTNESS OF BREATH VITAL SIGNS STABLE. DENIES CHEST PAIN. + PULSES RED RASH TO LLE. MEDICATION GIVEN FOR PAIN. PATIENT RESTING AT THIS TIME. WILL CONTINUE TO MONITOR
[2016-09-18 07:22] VITALS: BP 138/58
--- NOTE | 2016-09-18 07:57 | PN- Housestaff ---
MORALES ZUNIGA,[facility] 09/18/16 0756: Subjective Follow-up For: -COPD exacerbation -Shortness of breath Complaints: Shortness of breath and cough Subjective: Ms Kumar feels her cough is improving and her shortness of breath as well. She is not yet at her baseline today. She denies fevers, chills or malaise. Review of Systems Constitutional: Denies: chills, fever, malaise. EENTM: Reports: ear pain. Cardiovascular: Denies: chest pain, orthopena, palpitations, syncope. Respiratory: Reports: cough, wheezing. Denies: sputum production. Gastrointestinal: Denies: abdominal pain, constipation, diarrhea. Objective Last 24 Hrs of Vital Signs/I&O Vital Signs Date Time Temp Pulse Resp B/P B/P Pulse O2 O2 Flow FiO2 Mean Ox Delivery Rate 09/18 1920 91 Room Air 09/18 1526 98.6 64 20 132/60 96 Room Air 09/18 1035 Nasal 2.0L Cannula 09/18 1035 97 Nasal 2.0L Cannula 09/18 0800 Nasal 2.0L Cannula 09/18 0722 97.6 57 20 138/58 97 Nasal 2.0L Cannula Intake & Output 09/18 1600 09/18 0800 09/18 0000 Intake Total 450 510 400 Output Total 200 Balance 250 510 400 Intake, IV 30 Intake, Oral 450 480 400 Number 0 Bowel Movements Output, Urine 200 Patient 225 lb Weight Physical Exam General Appearance: Alert, Oriented X3, Cooperative, No Acute Distress Skin: No Rashes, No Breakdown Skin Temp/Moisture Exam: Warm/Dry Sepsis Skin Exam (color): Normal for Ethnicity HEENT: Atraumatic, PERRLA, EOMI, Mucous Membr. moist/pink, Some tenderness in left external meatus and tragus with dry scaling crust Neck: Supple, No JVD, No thryomegaly, +2 Carotid Pulse wo Bruit Lymphatic: Cervical nl Cardiovascular: Regular Rate, Normal S1, Normal S2, No Murmurs Lungs: Bilateral wheeze and coarse crepitations Abdomen: Normal Bowel Sounds, Soft, No Tenderness, No Hepatospenomegaly Neurological: Normal Speech, Normal Tone Extremities: No Clubbing, No Edema Current Medications: Current Medications Sig/Ralph Start time Last Medication Dose Route Stop Time Status Admin Acetaminophen 650 MG Q6P PRN 09/17 1645 AC PO Albuterol Sulfate 3 ML BID 09/18 2200 AC 09/18 INH 1920 Albuterol Sulfate 2 PUF Q4P PRN 09/18 1945 AC INH Albuterol Sulfate 2 PUF Q4 09/18 1800 DC INH Aripiprazole 15 MG 0 09/17 2200 AC 09/18 PO 2118 Aspirin Buffered 81 MG QAM 09/18 1000 AC 09/18 PO 1053 Atorvastatin Calcium 40 MG 17009/17 1700 AC 09/18 PO 1754 Azithromycin 500 MG 09/17 1700 AC 09/18 Sodium Chloride 250 ML IV 1755 Budesonide/ 2 PUF BID 09/17 2200 AC 09/18 Formoterol Fumarate INH 211 Carbamazepine 200 MG 0800,1700,09/17 1700 AC 09/18 PO 211 Enoxaparin Sodium 40 MG DAILY 09/17 1638 AC 09/18 SC 1052 Ergocalciferol 50,000 IU QTHURS 09/20 1000 AC PO Fenofibrate 145 MG DAILY 09/18 1000 AC 09/18 PO 1051 Fluticasone 2 SPRAY DAILY 09/18 1000 AC 09/18 Propionate TRUMAN 1053 Folic Acid 1 MG QAM 09/18 1000 AC 09/18 PO 1052 Furosemide 30 MG DAILY 09/18 1000 AC 09/18 PO 1051 Gabapentin 300 MG Q6-PRN PRN 09/17 1645 AC PO Gabapentin 300 MG Q4P PRN 09/17 1615 AC PO Ibuprofen 600 MG Q6P PRN 09/17 1645 AC 09/17 PO 1827 Insulin Aspart 0 AT BEDTIME 09/17 2199 AC SC Insulin Aspart 0 TIDAC 09/17 1700 AC SC Insulin Detemir 11 UNITS ONCE ONE 09/18 211 DC 09/18 SC 09/18 Insulin Detemir 22 UNITS AT BEDTIME 09/17 220 AC 09/17 SC 2114 Levothyroxine Sodium 0.05 MG DAILY AC 09/18 0700 AC 09/18 PO 0534 [place] Carbonate 300 MG 0800 09/18 0800 AC 09/18 PO 1053 [place] Carbonate 600 MG QPM 09/17 2200 AC 09/18 PO 2116 Metformin HCl 1,000 MG BID 09/17 220 AC 09/18 PO 2116 Methylprednisolone 40 MG Q12 09/18 2200 AC 09/18 IV 09/23 1001 2117 Methylprednisolone 40 MG Q8 09/170 DC 09/18 IV 09/21 1401 0534 Mirtazapine 7.5 MG AT BEDTIME 09/17 2199 AC 09/17 PO 2115 Ofloxacin 0 FOUR TIMES A DAY 09/19 1000 UNVr OTIC Omeprazole 40 MG DAILY AC 09/17 1638 AC 09/18 PO 0534 Patient Medication 1 ED .STK-MED ONE 09/18 1349 MN Teaching ED 09/18 1350 Sertraline HCl 150 MG 0800 09/18 0800 AC 09/18 PO 1052 Last 24 Hrs of Lab/Matthieu Results Last 24 Hrs of Labs/Mics: Laboratory Tests 09/18/16 0620: CBC w Diff NO MAN DIFF REQ, RBC 3.93 L, MCV 91.4, MCH 30.1, RDW 13.5, MPV 9.4, Gran % 67.2, Lymphocytes % 24.4, Monocytes % 4.5, Eosinophils % 3.2, Basophils % 0.7, Absolute Granulocytes 6.9 H, Absolute Lymphocytes 2.5, Absolute Monocytes 0.5, Absolute Eosinophils 0.3, Absolute Basophils 0.1, PUBS MCHC 33.0 Assessment/Plan Assessment: 50 year old woman with a past medical history of migraine, diabetes, peripheral and trigeminal neuropathy, HTN, cardiac catheterization negative for CAD, pericarditis, COPD, SHIRIN on bipap and oxygen at night, bipolar disorder, HTN, NSTEMI, CAD, Diastolic CHF, Mitral regurg, COPD, SHIRIN, gout, hypothyroidism, obesity. She presented with worsening shortness of breath and wheezing for the past 3 days with a non productive cough after a preceding upper respiratory/ allergy symptoms and prednisone thrapy last week. She is being managed for a COPD exacerbation. Plan 1. COPD acute exacerbation probably secondary to Allergic rhinitis * Continue IV solumedrol at 40 mg Q 12 hrs * Continue IV azithromycin 500 mg daily * Follow up pulmonology recommendations * Nebulizer therapy/TRC * Intranasal Oxygen inhalation to keep SPO2 >92% 2. SHIRIN * Continue Nocturnal BIPAP + 2L O2 3. Headache probably from otitis externa * Will start ciprofloxacin ear drops * Motrin 600 mg Q6 prn for pain 4. Bipolar Disorder * Continue lithium and ambilify 5. Hypothyroidism * Continue Levothyroxin 6. Diabetes mellitus * Continue Levemir 22 U at bedtime and Novalog according to sliding scale 7. CAD * Continue Aspirin, lasix and atorvastatin as before. Diet - Heart Healthy/Carbohydrate type 3 Diet DVT PPX - ALPS/Heparin Code Status - DNR/DNI Problem List: 1. Shortness of breath 2. COPD exacerbation 3. Hypothyroidism 4. CAD (coronary artery disease) Pain Ratin Pain Location: Left ear Pain Goal: Pain 4 or less Pain Plan: Tylenol, Motrin for pain Tomorrow's Labs & Rationales: None AINSLEY CABALLERO MD 09/18/16 1302: Attending MD Review Statement Attending Statement Attending MD Statement: examined this patient, discuss w/resident/PA/BALER OPERATOR, agreed w/resident/PA/BALER OPERATOR, reviewed EMR data (avail) Attending Assessment/Plan: 50F PMH active smoker,COPD (2 L oxygen), obstructive sleep apnea, obesity,HTN,HL ,diabetes mellitus, coronary arterial disease, migraine headaches,PTSD, anxiety, depression,bipolar disorder, hypothyroidism, ovarian cancer s/p hysterectomy admitted with shortness of breath and dyspnea at rest associated with lightheadedness and headache in the setting of acute exacerbation of COPD. Wheezing significantly on admission, no evidence of pneumonia. Today patient is improving. She feels like she is breathing easier and wheezing has improved. Now on room air and saturating 94%. 1. Acute exacerbation of COPD 2. Allergic rhinitis 3. SHIRIN Plan - Continue on general medicine - Taper steroids per pulmonary - Follow pulmonary recommendations - TRC/nebulizer treatments - Continue home medications - DVT PPx - Anticipated discharge tomorrow. Please send CMR to [facility] for review.
[2016-09-18 08:00] LABS: ABSOLUTE BASOPHIL COUNT 0.1 /CUMM (0.0-0.2); ABSOLUTE EOSINOPHIL COUNT 0.3 /CUMM (0.0-0.7); ABSOLUTE GRANULOCYTE CT 6.9 /CUMM (1.4-6.5); ABSOLUTE LYMPH COUNT 2.5 /CUMM (1.2-3.4); ABSOLUTE MONOCYTE COUNT 0.5 /CUMM (0.10-0.60); BASOPHIL % 0.7 % (0.0-2.0); EOSINOPHIL % 3.2 % (0-5); GRANULOCYTE % 67.2 % (42.2-75.2); MEAN CORPUSCULAR HGB 30.1 PG (27.0-31.0); MEAN CORPUSCULAR VOLUME 91.4 FL (81.0-99.0); MEAN PLATELET VOLUME 9.4 FL (7.4-10.4); PLATELET COUNT 293 /CUMM (130-400); RBC DISTRIBUTION WIDTH 13.5 % (11.5-14.5); RED BLOOD CELL CT 3.93 /CUMM (4.20-5.40); WHITE BLOOD CELL COUNT 10.2 /CUMM (4.8-10.8)
[2016-09-18 08:18] LABS: HEMATOCRIT 35.9 % (37-47)
--- NOTE | 2016-09-18 10:25 | Cons- Pulmonary ---
General Information and HPI Consulting Request Date of Consult: 09/18/16 Requested By: Howard Reason for Consult: COPD exacerbation Source of Information: patient Exam Limitations: no limitations History of Present Illness: 50 year old woman. Admitted for COPD exacerbation secondary to likely tobacco use. DM Type II, some minor improvement in dyspnea that she experienced for a few days. Uses BiPAP with O2 bleed in. Continues to have hoarseness which is on/off. Sees Dr. Shafer. On BiPAP 08/04. No fevers, no chills, some dry cough. Patient had a CT scan in February 2015. She has a stable 4 mm left upper lobe nodule dating back to August 2014. This is stable for over 2 years and considered benign. Resolved pericardial effusion as well. Some mosaicism suggesting reactive airway disease. PFTs performed 03/30/2015. Showing a moderately severe reduction in FEV1 and FVC. She does have a significant bronchodilator response however her FEV1/FVC percent is normal. TLC is reduced and her DLCO is moderately reduced as well. This is consistent with a mixed obstruction and restrictive deficit. Allergies/Medications Allergies: Coded Allergies: codeine (Severe, ITCH 08/09/15) lemon (Severe, SOB 08/09/15) melatonin (Severe, HIVES/RASH 07/16/16) PER . -CG 07/16/16 propranolol (Severe, SHOCK PER PT 08/09/15) Uncoded Allergies: all ashley (Severe, SOB 07/13/16) Home Med List: Albuterol Sulfate (Proair Hfa) 8.5 GM HFA.AER.AD 1-2 PUF INH Q4-6 PRN PRN COPD (Reported) Aripiprazole (Abilify) 15 MG TABLET 15 MG PO 2200 clarify thoughts Aspirin (Ecotrin*) 81 MG TABLET.DR 1 TAB PO QAM HEART/BLOOD (Reported) Atorvastatin Calcium (Lipitor) 40 MG TABLET 1 TAB PO QHS CHOLESTEROL ( Reported) Budesonide/Formoterol Fumarate (Symbicort 160-4.5 Mcg Inhaler) 10.2 GM HFA.AER.AD 2 PUF INH BID COPD (Reported) Carbamazepine 100 MG TAB.CHEW 200 MG PO 0800,1700,2000 mood stabilization Ergocalciferol (Vitamin D2) (Vitamin D2) 50,000 UNIT CAPSULE 1 CAP PO QTHURS SUPPLEMENT (Reported) Fenofibrate Nanocrystallized (Fenofibrate) 145 MG TABLET 1 TAB PO DAILY CHOLESTEROL/TRIGLYCERIDES (Reported) Fluticasone Propionate 16 GM SPRAY.SUSP 2 SPRAY NASB DAILY ALLERGIES ( Reported) Folic Acid 1 MG TABLET 1 TAB PO QAM SUPPLEMENT (Reported) Furosemide 20 MG TABLET 1.5 TAB PO DAILY FLUID (Reported) Gabapentin 300 MG CAPSULE 300 MG PO Q4H PRN trigeminal neuralgia/neuropathy Insulin Glargine,Hum.rec.anlog (Lantus Solostar) 100 UNIT/ML (3 ML) INSULN.PEN 22 UNIT SC QPM DM (Reported) Levothyroxine Sodium 50 MCG TABLET 1 TAB PO DAILY THYROID (Reported) Linaclotide (Linzess) 145 MCG CAPSULE 1 CAP PO QAM CIC (Reported) [place] Carbonate 300 MG CAPSULE 600 MG PO QPM mood stabilization [place] Carbonate 300 MG CAPSULE 300 MG PO 0800 mood stabilization Metformin HCl 1,000 MG TABLET 1 TAB PO BID DIABETES (Reported) Mirtazapine (Remeron) 15 MG TABLET 7.5 MG PO AT BEDTIME sleep/anxiety at night Pantoprazole Sodium (Protonix) 40 MG TABLET.DR 1 TAB PO DAILY GERD (Reported) Sertraline HCl 50 MG TABLET 150 MG PO 0800 anti-depressant Current Medications: Current Medications Sig/Ralph Start time Last Medication Dose Route Stop Time Status Admin Acetaminophen 650 MG Q6P PRN 09/17 1645 AC PO Acetaminophen/ 1 TAB ONCE ONE 09/175 DC 09/17 Butalbital/Caffeine PO 09/17 2146 2226 Albuterol Sulfate 3 ML BID 09/18 220 UNV INH Albuterol Sulfate 3 ML ONCE ONE 09/17 1115 DC 09/17 INH 09/17 1116 1157 Albuterol Sulfate 3 ML ONCE ONE 09/17 1115 DC 09/17 INH 09/17 1116 1157 Aripiprazole 15 MG 09/17 AC 09/17 PO 2114 Aspirin Buffered 81 MG QAM 09/18 1000 AC PO Atorvastatin Calcium 40 MG 17009/17 1700 AC 09/17 PO 1807 Azithromycin 500 MG 09/17 1700 AC 09/17 Sodium Chloride 250 ML IV 1806 Budesonide/ 2 PUF BID 09/17 2200 AC 09/17 Formoterol Fumarate INH 211 Carbamazepine 200 MG 0800,1700,09/17 1700 AC 09/17 PO 2115 Ceftriaxone Sodium 0 .STK-MED ONE 09/17 1345 DC .ROUTE Ceftriaxone Sodium 1,000 MG ONCE ONE 09/17 1315 DC 09/17 IV 09/17 1316 1346 Doxycycline Hyclate 100 MG ONCE ONE 09/17 1315 DC 09/17 Sodium Chloride 100 ML IV 09/17 1420 1346 Enoxaparin Sodium 40 MG DAILY 09/17 1638 AC 09/17 SC 1807 Ergocalciferol 50,000 IU QTHURS 09/20 1000 AC PO Fenofibrate 145 MG DAILY 09/18 1000 AC PO Fluticasone 2 SPRAY DAILY 09/18 1000 AC Propionate TRUMAN Folic Acid 1 MG QAM 09/18 1000 AC PO Furosemide 30 MG DAILY 09/18 1000 AC PO Gabapentin 300 MG Q6-PRN PRN 09/17 1645 AC PO Gabapentin 300 MG Q4P PRN 09/17 1615 AC PO Ibuprofen 600 MG Q6P PRN 09/17 1645 AC 09/17 PO 1827 Insulin Aspart 0 AT BEDTIME 09/17 2200 AC SC Insulin Aspart 0 TIDAC 09/17 1700 AC SC Insulin Detemir 22 UNITS AT BEDTIME 09/17 2200 AC 09/17 SC 2114 Ipratropium [place] 2.5 ML ONCE ONE 09/17 1115 DC 09/17 INH 09/17 1116 1157 Levothyroxine Sodium 0.05 MG DAILY AC 09/18 0700 AC 09/18 PO 0534 [place] Carbonate 300 MG 0800 09/18 0800 AC PO [place] Carbonate 600 MG QPM 09/17 2200 AC 09/17 PO 2115 Metformin HCl 1,000 MG BID 09/17 2200 AC 09/17 PO 2115 Methylprednisolone 40 MG Q12 09/18 2200 UNVr IV 09/23 1001 Methylprednisolone 40 MG Q8 09/17 2200 DC 09/18 IV 09/21 1401 0534 Methylprednisolone 0 .STK-MED ONE 09/17 1139 DC .ROUTE Methylprednisolone 125 MG ONCE ONE 09/17 1115 DC 09/17 IV 09/17 1116 1136 Mirtazapine 7.5 MG AT BEDTIME 09/17 2200 AC 09/17 PO 2115 Omeprazole 40 MG DAILY AC 09/17 1638 AC 09/18 PO 0534 Sertraline HCl 150 MG 0800 09/18 0800 AC PO Review of Systems Comments 18 point Review of Systems performed. Positive and negative pertinent findings are deliniated in the HPI. Otherwise the ROS is negative. Past History Travel History Traveled to [place] past 21 day No Medical History Blood Transfusion Hx: No Neurological: dizziness, peripheral neuropathy, TIA, TRIGEMINAL NEURALGIA NEUROPATHY gait disturbance (uses a walker); ?neurological basis EENT: NONE Cardiovascular: angina (hx "atypical chest pain" ), hypertension, hyperlipidemia , HIGH TRYGLCERIDES recent cardiac catheterizations were negative for occlusive coronary artery disease PERICARDITIS Respiratory: asthma, bronchitis, obstructive sleep apnea, pneumonia, BIPAP Gastrointestinal: ACID REFLUX CONSTIPAT- CHRONIC/IDEOPA ABDOMINAL HERNIA Hepatic: CHOLELITHIASIS CHOLECYSTECTOMY Renal: NONE Musculoskeletal: R ANKLE FX AND REPAIR Psychiatric: anxiety, bipolar disease, depression, opioid dependence, substance abuse (possible benzo. and opioid) Endocrine: diabetes, HYPOTHYROIDISM Blood Disorders: NONE Cancer(s): ovarian cancer, SARCOMA L LEG HISTOLOGY ASSISTANT/Reproductive: OVARIAN CA TOTAL HYSTERECTOMY Surgical History Surgical History: ABD HERNIA REPAIR X4 HYSTERECTOMY CHOLECYSTECTOMY R ANKLE SX POST FX SARCOMA REMOVAL L LEG Family History Relations & Conditions If Any: MOTHER Relation not specified for: *No pertinent family history FH: diabetes mellitus Psychosocial History Where Do You Live? Home Services at Home: Nursing Smoking Status: Current Everyday Smoker Functional Ability ADLs Independent: dressing, eating, toileting, bathing. Ambulation: independent IADLs Independent: shopping, housework, finances, food prep, telephone, transportation , medication admin. Exam & Diagnostic Data Last 24 Hrs of Vital Signs/I&O Vital Signs Date Time Temp Pulse Resp B/P B/P Pulse O2 O2 Flow FiO2 Mean Ox Delivery Rate 09/18 0722 97.6 57 20 138/58 97 Nasal 2.0L Cannula 09/17 2225 98.4 59 18 140/70 92 Room Air 09/17 1635 98.3 74 18 142/48 93 Room Air 09/17 1605 Room Air 09/17 1433 98.1 72 20 140/77 95 Room Air 09/17 1303 97.4 78 20 144/64 94 09/17 1207 95 Room Air 09/17 1157 91 Intake & Output 09/18 1600 09/18 0800 09/18 0000 Intake Total 510 400 Output Total Balance 510 400 Intake, IV 30 Intake, Oral 480 400 Number 0 Bowel Movements Patient 225 lb Weight Physical Exam Other Physical Findings: General - Alert, awake and oriented HEENT - normocephalic, atraumatic Cardiovascular - S1, S2 Lungs - rhonchi b/l Abdomen - soft, bowel sounds positive, no tenderness Extremities - without edema or cyanosis Last 48 Hrs of Labs/Matthieu: Laboratory Tests 09/18/16 0620: CBC w Diff NO MAN DIFF REQ, RBC 3.93 L, MCV 91.4, MCH 30.1, RDW 13.5, MPV 9.4, Gran % 67.2, Lymphocytes % 24.4, Monocytes % 4.5, Eosinophils % 3.2, Basophils % 0.7, Absolute Granulocytes 6.9 H, Absolute Lymphocytes 2.5, Absolute Monocytes 0.5, Absolute Eosinophils 0.3, Absolute Basophils 0.1, PUBS MCHC 33.0 09/17/16 1140: Anion Gap 11, Estimated GFR > 60, BUN/Creatinine Ratio 22.9, Glucose 128 H, Calcium 9.7, Magnesium 2.0, Total Bilirubin 0.3, AST 14, ALT 34, Alkaline Phosphatase 56, Troponin I < 0.01, [id number] Pept 151 H, Total Protein 7.5, Albumin 5.0, Globulin 2.5, Albumin/Globulin Ratio 2.0, CBC w Diff NO MAN DIFF REQ, RBC 4.61, MCV 91.4, MCH 29.6, RDW 14.0, MPV 9.3, Gran % 76.8 H, Lymphocytes % 16.7 L, Monocytes % 3.3, Eosinophils % 2.7, Basophils % 0.5, Absolute Granulocytes 8.4 H, Absolute Lymphocytes 1.8, Absolute Monocytes 0.4, Absolute Eosinophils 0.3, Absolute Basophils 0.1, PUBS MCHC 32.4 L Assessment/Plan Impression/Plan: Impression 50 year old woman * Acute exacerbation of COPD secondray to smoking/tobacco use * SHIRIN/OHS * DM Plan -tobacco cessation -trc/nebs -nocturnal bipap 18/12 nightly -resume home inhalers -reduce solumedrol to 40mg iv q12h -plan for po steroids in am if does well -DVT prophylaxis at all times Consult Acknowledgment - Thank you for your consult request.
--- NOTE | 2016-09-18 15:08 | RADIOLOGY REPORT ---
EXAMINATION: RIGHT KNEE 3 VIEWS CLINICAL INFORMATION: Right knee pain after fall. COMPARISON: 04/09/2016. TECHNIQUE: AP, lateral, oblique views of the right knee were obtained. FINDINGS: There are no fractures or dislocations. There is no knee joint effusion. There is no significant soft tissue swelling. There is mild patellar spurring. IMPRESSION: No evidence for acute injury to the right knee.
[2016-09-18 15:26] VITALS: BP 132/60
--- NOTE | 2016-09-18 16:27 | NUR ---
LATE ENTRY: AT 1340 PT INFORMED THAT SHE FELL IN THE BATHROOM GETTING UP FROM THE TOILET. PT RESTING IN BED COMFOTABLY. DENIES THAT SHE HIT HER HEAD. NO LOC, ALERT AND ORIENTED X3. PT DOES STATE THAT SHE DID HIT HER KNEE. + CMS, NO REDNESS TO KNEE. MD NIELSEN NOTIFED. XRAY OF KNEE ORDERED. BED ALARM ON, CALL ZEE WITHIN REACH 1631: PT RESTING COMFORTABLY IN BED, DENIES ANY PAIN AT THE MOMENT. XRAY SHOWED NO FRACTURE OR ACUTE INJURY. BED ALARM ON. CALL ZEE WITHIN REACH. SISTER AT BEDSIDE
--- NOTE | 2016-09-18 21:47 | Event Note ---
Event Note Event Note: Patient's blood sugar has been in the low 100. Will give only half dose of levemir, will given 11 units of levemir, and metformin.
[2016-09-18 22:31] VITALS: BP 112/60
[2016-09-19 07:19] VITALS: BP 138/78
--- NOTE | 2016-09-19 07:30 | PN- Housestaff ---
MORALES ZUNIGA,[facility] 09/19/16 0729: Subjective Follow-up For: -COPD exacerbation -Shortness of breath Complaints: Cough Shortness of breath Subjective: Ms Kumar feels her cough and shortness of breath is much better and she wants to go home. She is now at her baseline today. She denies fevers, chills or malaise. Review of Systems Constitutional: Denies: chills, fever, malaise. EENTM: Reports: ear pain. Cardiovascular: Denies: chest pain, edema, palpitations, syncope. Respiratory: Denies: cough, short of breath, wheezing. Gastrointestinal: Denies: abdominal pain, diarrhea, nausea, vomiting. Genitourinary: Denies: dysuria, urgency. Objective Last 24 Hrs of Vital Signs/I&O Vital Signs Date Time Temp Pulse Resp B/P B/P Pulse O2 O2 Flow FiO2 Mean Ox Delivery Rate 09/19 0719 97.8 60 20 138/78 95 09/19 0028 61 97 09/19 0000 Nasal 2.0L Cannula 09/18 2235 68 99 09/18 2231 97.7 64 20 112/60 97 Room Air 09/18 1920 91 Room Air 09/18 1526 98.6 64 20 132/60 96 Room Air 09/18 1035 Nasal 2.0L Cannula 09/18 1035 97 Nasal 2.0L Cannula Intake & Output 09/19 1600 09/19 0800 09/19 0000 Intake Total 240 480 Output Total 500 Balance 240 -20 Intake, Oral 240 480 Output, Urine 500 Physical Exam General Appearance: Alert, Oriented X3, Cooperative, No Acute Distress Skin: No Rashes Skin Temp/Moisture Exam: Warm/Dry Sepsis Skin Exam (color): Normal for Ethnicity HEENT: Atraumatic, PERRLA, EOMI, Mucous Membr. moist/pink Neck: Supple, No JVD, No thryomegaly Lymphatic: Cervical nl Cardiovascular: Regular Rate, Normal S1, Normal S2, No Murmurs Lungs: Normal Air Movement, Few scattered wheeze, improved compared to yesterday Abdomen: Normal Bowel Sounds, Soft, No Tenderness, No Hepatospenomegaly Neurological: Normal Speech, Normal Tone Extremities: No Clubbing, No Edema Current Medications: Current Medications Sig/Ralph Start time Last Medication Dose Route Stop Time Status Admin Acetaminophen 650 MG Q6P PRN 09/17 1645 AC PO Albuterol Sulfate 3 ML BID 09/18 2200 AC 09/18 INH 1920 Albuterol Sulfate 2 PUF Q4P PRN 09/18 1945 AC INH Albuterol Sulfate 2 PUF Q4 09/18 1800 DC INH Aripiprazole 15 MG 09/17 2200 AC 09/18 PO 2118 Aspirin Buffered 81 MG QAM 09/18 1000 AC 09/18 PO 1053 Atorvastatin Calcium 40 MG 17009/17 1700 AC 09/18 PO 1754 Azithromycin 500 MG 17009/17 1700 AC 09/18 Sodium Chloride 250 ML IV 1755 Budesonide/ 2 PUF BID 09/17 2200 AC 09/18 Formoterol Fumarate INH 211 Carbamazepine 200 MG 0800,1700,09/17 1700 AC 09/18 PO 2116 Enoxaparin Sodium 40 MG DAILY 09/17 1638 AC 09/18 SC 1052 Ergocalciferol 50,000 IU QTHURS 09/20 1000 AC PO Fenofibrate 145 MG DAILY 09/18 1000 AC 09/18 PO 1051 Fluticasone 2 SPRAY DAILY 09/18 1000 AC 09/18 Propionate TRUMAN 1053 Folic Acid 1 MG QAM 09/18 1000 AC 09/18 PO 1052 Furosemide 30 MG DAILY 09/18 1000 AC 09/18 PO 1051 Gabapentin 300 MG Q6-PRN PRN 09/17 1645 AC PO Gabapentin 300 MG Q4P PRN 09/17 1615 AC PO Ibuprofen 600 MG Q6P PRN 09/17 1645 AC 09/17 PO 1827 Insulin Aspart 0 AT BEDTIME 09/17 220 AC SC Insulin Aspart 0 TIDAC 09/17 1700 AC SC Insulin Detemir 11 UNITS ONCE ONE 09/18 211 DC 09/18 SC 09/18 Insulin Detemir 22 UNITS AT BEDTIME 09/17 2200 AC 09/17 SC 211 Levothyroxine Sodium 0.05 MG DAILY AC 09/18 0700 AC 09/19 PO 0600 [place] Carbonate 300 MG 0800 09/18 0800 AC 09/18 PO 1053 [place] Carbonate 600 MG QPM 09/17 2200 AC 09/18 PO 211 Metformin HCl 1,000 MG BID 09/17 2200 AC 09/18 PO 2116 Methylprednisolone 40 MG Q12 09/18 2199 AC 09/18 IV 09/23 1001 2117 Methylprednisolone 40 MG Q8 09/17 2199 DC 09/18 IV 09/21 1401 0534 Mirtazapine 7.5 MG AT BEDTIME 09/17 2199 AC 09/17 PO 2115 Ofloxacin 0 FOUR TIMES A DAY 09/19 1000 AC OTIC Omeprazole 40 MG DAILY AC 09/17 1638 AC 09/19 PO 0600 Patient Medication 1 ED .STK-MED ONE 09/18 1349 [place] Teaching ED 09/18 1350 Sertraline HCl 150 MG 0809/18 0800 AC 09/18 PO 1052 Assessment/Plan Assessment: 50 year old woman with a past medical history of migraine, diabetes, peripheral and trigeminal neuropathy, HTN, cardiac catheterization negative for CAD, pericarditis, COPD, SHIRIN on bipap and oxygen at night, bipolar disorder, HTN, NSTEMI, CAD, Diastolic CHF, Mitral regurg, COPD, SHIRIN, gout, hypothyroidism, obesity. She presented with worsening shortness of breath and wheezing for the past 3 days with a non productive cough after a preceding upper respiratory/ allergy symptoms and prednisone thrapy last week. She is being managed for a COPD exacerbation. She has improved and is stable for discharge. Plan 1. COPD acute exacerbation probably secondary to Allergic rhinitis * Patient is stable for discharge * Stop IV solumedrol at 40 mg Q 12 hrs * Start PO Prednisone 40 mg daily and taper by 10 mg every 2 days and stop * Change IV azithromycin to PO azithromycin 250 mg daily for 3 more days on discharge * Follow up pulmonology recommendations * Nebulizer therapy/TRC * Intranasal Oxygen inhalation to keep SPO2 >92% 2. SHIRIN * Continue Nocturnal BIPAP + 2L O2 3. Headache probably from otitis externa * Will start ciprofloxacin ear drops * Motrin 600 mg Q6 prn for pain 4. Bipolar Disorder * Continue lithium and ambilify 5. Hypothyroidism * Continue Levothyroxin 6. Diabetes mellitus * Continue Levemir 22 U at bedtime and Novalog according to sliding scale 7. CAD * Continue Aspirin, lasix and atorvastatin as before. Diet - Heart Healthy/Carbohydrate type 3 Diet DVT PPX - ALPS/Heparin Code Status - DNR/DNI Problem List: 1. COPD exacerbation 2. Shortness of breath 3. Hypothyroidism 4. CAD (coronary artery disease) Pain Ratin Pain Location: NONE Pain Goal: Remain pain free Pain Plan: Tylenol and motrin for pain Tomorrow's Labs & Rationales: None needed AINSLEY CABALLERO MD 09/19/16 1011: Attending MD Review Statement Attending Statement Attending MD Statement: examined this patient, discuss w/resident/PA/REVIEW NURSE, agreed w/resident/PA/REVIEW NURSE, reviewed EMR data (avail) Attending Assessment/Plan: 50F PMH active smoker,COPD (2 L oxygen), obstructive sleep apnea, obesity,HTN,HL ,diabetes mellitus, coronary arterial disease, migraine headaches,PTSD, anxiety, depression,bipolar disorder, hypothyroidism, ovarian cancer s/p hysterectomy admitted with shortness of breath and dyspnea at rest associated with lightheadedness and headache in the setting of acute exacerbation of COPD. Wheezing significantly on admission, no evidence of pneumonia. Patient appears and feels much better today. Her wheezing has improved. She feels ready to go home. Of note, the patient noted that she syncopizes several times per week, and has recently been diagnosed with POTS (Postural Orthostatic Tachycardic Syndrome). 1. Acute exacerbation of COPD 2. Allergic rhinitis 3. SHIRIN Plan - Continue on general medicine - Taper steroids per pulmonary - Follow pulmonary recommendations - TRC/nebulizer treatments - Continue home medications - DVT PPx - Anticipated discharge tomorrow. Please send CMR to [facility] for review.
--- NOTE | 2016-09-19 09:22 | PN- Pulmonary ---
Subjective HPI/Critical Care Issues: pt seen and examined returning to respiratory baseline hemodynamically stable on 2LNC saturating 95% Objective Current Medications: Current Medications Sig/Ralph Start time Last Medication Dose Route Stop Time Status Admin Acetaminophen 650 MG Q6P PRN 09/17 1645 AC PO Albuterol Sulfate 3 ML BID 09/18 2200 AC 09/18 INH 1920 Albuterol Sulfate 2 PUF Q4P PRN 09/18 1945 AC INH Albuterol Sulfate 2 PUF Q4 09/18 1800 DC INH Aripiprazole 15 MG 09/17 2200 AC 09/18 PO 2118 Aspirin Buffered 81 MG QAM 09/18 1000 AC 09/18 PO 1053 Atorvastatin Calcium 40 MG 17009/17 1700 AC 09/18 PO 1754 Azithromycin 500 MG 09/17 1700 AC 09/18 Sodium Chloride 250 ML IV 1755 Budesonide/ 2 PUF BID 09/17 2200 AC 09/18 Formoterol Fumarate INH 2117 Carbamazepine 200 MG 0800,1700,09/17 1700 AC 09/18 PO 2116 Enoxaparin Sodium 40 MG DAILY 09/17 1638 AC 09/18 SC 1052 Ergocalciferol 50,000 IU QTHURS 09/20 1000 AC PO Fenofibrate 145 MG DAILY 09/18 1000 AC 09/18 PO 1051 Fluticasone 2 SPRAY DAILY 09/18 1000 AC 09/18 Propionate TRUMAN 1053 Folic Acid 1 MG QAM 09/18 1000 AC 09/18 PO 1052 Furosemide 30 MG DAILY 09/18 1000 AC 09/18 PO 1051 Gabapentin 300 MG Q6-PRN PRN 09/17 1645 AC PO Gabapentin 300 MG Q4P PRN 09/17 1615 AC PO Ibuprofen 600 MG Q6P PRN 09/17 1645 AC 09/17 PO 1827 Insulin Aspart 0 AT BEDTIME 09/17 2200 AC SC Insulin Aspart 0 TIDAC 09/17 1700 AC SC Insulin Detemir 11 UNITS ONCE ONE 09/18 2114 DC 09/18 SC 09/18 Insulin Detemir 22 UNITS AT BEDTIME 09/17 2200 AC 09/17 SC 2114 Levothyroxine Sodium 0.05 MG DAILY AC 09/18 0700 AC 09/19 PO 0600 [place] Carbonate 300 MG 0800 09/18 0800 AC 09/18 PO 1053 [place] Carbonate 600 MG QPM 09/17 2199 AC 09/18 PO 2115 Metformin HCl 1,000 MG BID 09/17 2199 AC 09/18 PO 2115 Methylprednisolone 40 MG Q12 09/18 2199 AC 09/18 IV / 1001 2117 Methylprednisolone 40 MG Q8 09/17 2199 DC 09/18 IV 09/21 1401 0534 Mirtazapine 7.5 MG AT BEDTIME 09/17 2199 AC 09/17 PO 211 Ofloxacin 0 FOUR TIMES A DAY 09/19 1000 AC OTIC Omeprazole 40 MG DAILY AC 09/17 1638 AC 09/19 PO 0600 Patient Medication 1 ED .STK-MED ONE 09/18 1349 DC Teaching ED 09/18 1350 Sertraline HCl 150 MG 0800 09/18 0800 AC 09/18 PO 1052 Vital Signs & I&O Last 24 Hrs of Vitals and I&O: Vital Signs Date Time Temp Pulse Resp B/P B/P Pulse O2 O2 Flow FiO2 Mean Ox Delivery Rate 09/19 0800 Nasal 2.0L Cannula 09/19 0719 97.8 60 20 138/78 95 09/19 0028 61 97 09/19 0000 Nasal 2.0L Cannula 09/18 2235 68 99 09/18 2231 97.7 64 20 112/60 97 Room Air 09/18 1920 91 Room Air 09/18 1526 98.6 64 20 132/60 96 Room Air 09/18 1035 Nasal 2.0L Cannula 09/18 1035 97 Nasal 2.0L Cannula Intake & Output 09/19 1600 09/19 0800 09/19 0000 Intake Total 240 480 Output Total 500 Balance 240 -20 Intake, Oral 240 480 Output, Urine 500 Exam Other Physical Findings: General - Alert, awake and oriented HEENT - normocephalic, atraumatic Cardiovascular - S1, S2 Lungs - rhonchi b/l Abdomen - soft, bowel sounds positive, no tenderness Extremities - without edema or cyanosis Impression/Plan Impression/Plan Impression/Plan: Impression 50 year old woman * Acute exacerbation of COPD secondray to smoking/tobacco use * SHIRIN/OHS * DM Plan -tobacco cessation -trc/nebs -nocturnal bipap 08/04 nightly -resume home inhalers -dc solumedrol -agree with steroid taper as ordered -stable for dc -DVT prophylaxis at all times
--- NOTE | 2016-09-19 09:59 | NUR ---
PT REPORTED THAT SHE HAD 4 MEDIUM SIZED LIQUID BM'S TODAY. BS X4 QUADS WNL. DENIES ANY ABD PAIN OR TENDERNESS. NO N/V. VSS. PT REPORTS SHE STILL WANTS TO GO HOME TODAY. DR. VO INFORMED. WILL CONT TO MONITOR.
--- NOTE | 2016-09-19 12:07 | Patient Discharge Instructions ---
Discharge Instructions General Discharge Information You were seen/treated for: COPD exacerbation Shortness of breath Watch for these problems: COPD exacerbation Shortness of breath Special Instructions: 1. Follow up with your primary care provider, Dr. Castellon within one week of discharge 2. Follow up with your fishing rod marker Dr. Wall within one week of discharge 3. Your blood sugars were remarkably normal even with steroid therapy, while on admission and your insullin at bedtime was stopped. Please follow up with Dr. Castellon to see if you still need insulin at bedtime. Diet Continue normal diet: No Recommended Diet: Diabetic Activity Full Activity/No Limits: No Activity Self Limited: Yes Acute Coronary Syndrome Inclusion Criteria At DC or during hospital stay patient has or had the following: ACS DIAGNOSIS No Discharge Core Measures Meds if any: Prescribed or Continued at Discharge Meds if any: NOT Prescribed or Continued at Discharge Congestive Heart Failure Inclusion Criteria At DC or during hospital stay patient has or had the following: CHF DIAGNOSIS No Discharge Core Measures Meds if any: Prescribed or Continued at Discharge Meds if any: NOT Prescribed or Continued at Discharge Cerebrovascular accident Inclusion Criteria At DC or during hospital stay patient has or had the following: CVA/TIA Diagnosis No Discharge Core Measures Meds if any: Prescribed or Continued at Discharge Meds if any: NOT Prescribed or Continued at Discharge Venous thromboembolism Inclusion Criteria VTE Diagnosis No VTE Type NONE VTE Confirmed by (Test) NONE Discharge Core Measures - Per Current guidelines, there needs to be overlap - treatment for the first 5 days of Warfarin therapy. - If discharged on Warfarin prior to 5 days of - overlap therapy, the patient will need to be - assessed for post discharge needs including - *Post discharge parental anticoagulation - *Warfarin and/or parental anticoagulation education - *Follow up date to check INR post discharge At least 5 days overlap therapy as Inpatient No (No DVT/PE) Meds if any: Prescribed or Continued at Discharge Note: Overlap Therapy is Warfarin and Anticoagulant Meds if any: NOT Prescribed or Continued at Discharge
--- NOTE | 2016-09-19 12:11 | Discharge Summary ---
Visit Information Visit Dates Admission Date: 09/17/16 Discharge Date: 09/19/16 Hospital Course Course Attending Physician: AINSLEY CABALLERO MD Primary Care Physician: KENNY STEVENS D.O. Consulting Request: Consulting Specialty: Pulmonary Disease Consulting Physician: Dr. Wall Reason for Consult: COPD exacerbation Hospital Course: Ms. Virgen is a 50 year old woman with a past medical history significant for Postural Orthostatic Tachycardia Syndrome (POTS) diagnosed in 2014, migraine, diabetes, peripheral and trigeminal neuropathy, HTN, cardiac catheterization negative for CAD, pericarditis, COPD, SHIRIN on bipap and oxygen at night, bipolar disorder. She presented with complaints of worsening shortness of breath and wheezing for 3 days prior to presentation along with a non productive cough. She also admitted to having some symptoms about a week prior to presentation that consisted of a sore throat, runny nose and swelling over her face and eyes. She was prescribed prednisone for those symptoms however she never fully recovered and started having shortness of breath particularly on exertion and walking with her walker. She denied fevers, chills or malaise. Physical Exam at presentation was as follows: General Appearance: Middle aged woman, obese, awake and alert, oriented X3, in mild respiratory distress HEENT: PERRLA, EOMI, Mucous Membr. moist/pink Neck: Supple, +2 Carotid Pulse wo Bruit, No JVD Cardiovascular: Regular Rate, Normal S1, Normal S2, No Murmurs Lungs: Bilateral scattered wheeze, Normal air entry bilaterally Abdomen: Normal Bowel Sounds, Soft, No Tenderness Extremities: No Cyanosis, Normal Pulses, No pedal edema Labs were significant for a complete blood count showing white count of 10.9, with hemoglobin of 13.6. Her chemistries were unremarkable with a negative troponin, and ProBNp of 151. A chest X-ray showed a questionable left lower lobe opacity ?atelectasis and mild pulmonary congestion. Her EKG showed normal sinus rhythm. She was admitted to the general medicine floor and monitored for an acute exacerbation of COPD. She was treated with IV Solu-Medrol along with bronchodilators by nebulizer and IV azithromycin which was converted to by mouth on discharge. She was also treated with nocturnal BiPAP and 2 L of oxygen/min for obstructive sleep apnea (she was on this at home). Pulmonology consult was obtained and the patient was reviewed by Dr. Wall. She improved on above therapy and her IV steroids were converted to by mouth prednisone and she was discharged on a taper. She was also noted to have some left ear pain along with dry scaly skin around the left pinna. She was treated for otitis externa with ofloxacin ear drops which were continued on discharge. Throughout the admission, her blood sugars were normal, even while on steroid therapy, so her bedtime lantus medication was held and stopped on discharge. She only received metformin 1000 mg twice a day for her diabetes while in admission and her blood sugars were in excellent ranges. She was instructed to follow up with her PCP before restarting the Lantus as he might not need it. Prior to discharge this [place] was counseled extensively about smoking cessation and urged to set a quit date. She agreed to quit smoking on 10/04/2016 which was her birthday. Please note PATIENT HAS POTS (Postural Orthostatic Tachycardic Syndrome) recently diagnosed 1 year ago and is prone to episodes of fainting. However no episode of fainting occurred while she was on admission. Allergies: Coded Allergies: codeine (Severe, ITCH 08/09/15) lemon (Severe, SOB 08/09/15) melatonin (Severe, HIVES/RASH 07/16/16) PER . -CG 07/16/16 propranolol (Severe, SHOCK PER PT 08/09/15) Uncoded Allergies: all ashley (Severe, SOB 07/13/16) Disposition Summary Disposition Principal Diagnosis: 1. Acute exacerbation of COPD Additional Diagnosis: 2. Diabetes mellitus 3. Bipolar disorder 4. SHIRIN on Bipap and nocturnal O2 5. Hypothyroidism 6. Hypertension 7. Allergic rhinitis Discharge Disposition: home health services Discharge Instructions General Discharge Information Code Status: Do Not Resucitate/Intubat Patient's Diet: Diabetic Patient's Activity: Self-limited activity Follow-Up Instructions/Appts: 1. Follow up with your primary care provider, Dr. Stevens within one week of discharge 2. Follow up with your field application engineer Dr. Wall within one week of discharge 3. Your blood sugars were remarkably normal even with steroid therapy, while on admission and your Lantus insullin at bedtime was stopped. Please follow up with Dr. Stevens to see if you still need insulin at bedtime. Medications at Discharge Discharge Medications: Stop taking the following medications: Insulin Glargine,Hum.rec.anlog (Lantus Solostar) 100 UNIT/ML (3 ML) INSULN.PEN Inject into fatty tissue Every night Qty = 15 Continue taking these medications: Levothyroxine Sodium (Levothyroxine Sodium) 50 MCG TABLET 1 Tablet ORAL DAILY Comments: Last Taken: 09/19/16 Time: 6 AM Atorvastatin Calcium (Lipitor) 40 MG TABLET 1 Tablet ORAL TAKE AT BEDTIME Comments: Last Taken: 09/18/16 Time: 6 PM Aspirin (Ecotrin*) 81 MG TABLET.DR 1 Tablet ORAL Every Morning Comments: Last Taken: 09/19/16 Time: 10 AM Folic Acid (Folic Acid) 1 MG TABLET 1 Tablet ORAL Every Morning Comments: Last Taken: 09/19/16 Time: 10 AM Linaclotide (Linzess) 145 MCG CAPSULE 1 Capsule ORAL Every Morning Comments: NOT GIVEN IN HOSPITAL Ergocalciferol (Vitamin D2) (Vitamin D2) 50,000 UNIT CAPSULE 1 Capsule ORAL EVERY SATURDAY Comments: NOT GIVEN IN HOSPITAL Albuterol Sulfate (Proair Hfa) 8.5 GM HFA.AER.AD 1-2 Puff Inhale through mouth EVERY 4-6 HOURS NEEDED as needed for COPD Comments: DID NOT RECEIVE WHILE IN HOSPITAL. PT RECEIVED NEB [place] Budesonide/Formoterol Fumarate (Symbicort 160-4.5 Mcg Inhaler) 10.2 GM HFA.AER.AD 2 Puff Inhale through mouth TWICE DAILY Qty = 10 Comments: Last Taken: 09/19/16 Time: 10 AM Fluticasone Propionate (Fluticasone Propionate) 16 GM SPRAY.SUSP 2 [place] Both sides of nose DAILY Qty = 16 Comments: Last Taken: 09/19/16 Time: 10 AM Pantoprazole Sodium (Protonix) 40 MG TABLET.DR 1 Tablet ORAL DAILY Comments: ALTERNTAIVE MED GIVEN WHILE IN HOSPITAL (PRILOSEC) Last Taken: 09/19/16 Time: 6 AM Metformin HCl (Metformin HCl) 1,000 MG TABLET 1 Tablet ORAL TWICE DAILY Qty = 90 Comments: Last Taken: 09/19/16 Time: 10 AM Fenofibrate Nanocrystallized (Fenofibrate) 145 MG TABLET 1 Tablet ORAL DAILY Qty = 85 Comments: Last Taken: 09/19/16 Time: 10 AM Furosemide (Furosemide) 20 MG TABLET 1.5 Tablet ORAL DAILY Qty = 90 Comments: Last Taken: 09/19/16 Time: 10 AM Carbamazepine (Carbamazepine) 100 MG TAB.CHEW 200 Milligram ORAL 0800,1700,2000 Qty = 42 Comments: Last Taken: 09/19/16 Time: 10 AM Gabapentin (Gabapentin) 300 MG CAPSULE 300 Milligram ORAL Q4H as needed for trigeminal neuralgia/neuropathy Qty = 42 Comments: NOT GIVEN IN HOSPITAL Mirtazapine (Remeron) 15 MG TABLET 7.5 Milligram ORAL AT BEDTIME Qty = 14 Comments: Last Taken: 09/17/16 Time: 9 PM Sertraline HCl (Sertraline HCl) 50 MG TABLET 150 Milligram ORAL DAILY @8 AM Qty = 42 Comments: Last Taken: 09/19/16 Time: 10 AM Aripiprazole (Abilify) 15 MG TABLET 15 Milligram ORAL 2200 Qty = 14 Comments: Last Taken: 09/17/16 Time: 9 PM [place] Carbonate ([place] Carbonate) 300 MG CAPSULE 300 Milligram ORAL DAILY @8 AM Qty = 14 Comments: Last Taken: 09/19/16 Time: 10 AM [place] Carbonate ([place] Carbonate) 300 MG CAPSULE 600 Milligram ORAL Every night Qty = 28 Comments: Last Taken: 09/19/16 Time: 10 AM Start taking the following new medications: Prednisone (Prednisone) 10 MG TABLET 0 ORAL TAPER Qty = 20 No Refills Instructions: On Take 6/1 to 6/2 4 tablets daily 6/3 to 6/4 3 tablets daily 6/5 to 6/6 2 tablets daily 6/7 to 6/8 1 tablet daily Then Stop Comments: Last Taken: 09/19/16 Time: 12:30 PM Ofloxacin (Ofloxacin) 0.3 % DROPS 5 Drop OTIC TWICE DAILY Qty = 5 No Refills Instructions: Apply to Left ear while tilting your head to the right Then lie on your right side for 5 minutes so drops can stay in contact with left ear for at least 5 minutes Comments: Last Taken: 09/19/16 Time: 10 AM Azithromycin (Azithromycin) 250 MG TABLET 1 Tablet ORAL DAILY Qty = 3 No Refills Comments: IV AZITHROMYCIN GIVEN WHILE IN HOSPITAL Last Taken: 09/18/16 Time: 6 PM Copies To: ADA ZUNIGA,KENNY GONZALEZ D.O.; NANCY WALL MD 1 Tablet ORAL DAILY Qty = 3 No Refills Comments: IV AZITHROMYCIN GIVEN WHILE IN HOSPITAL Last Taken: 09/18/16 Time: 6 PM Copies To: LISSETH CABALLERO MD, D.O., SWATI; NANCY WALL MD
[2016-09-19] MEDS ORDERED: AZITHROMYCIN250 M1 PO (12:12)
[2016-09-19] MEDS ORDERED: OFLOXACIN5 M1 OT (12:23)
[2016-09-19] MEDS ORDERED: PREDNISONE10 M2 PO (12:23)
== END 2016-09-19 13:10 | disposition home health service (06) | DRG 191 ==
LOC: ERH 10:07 → 2NB 13:05 → ERHI 13:05 → ENRESERV 14:27 → ENTRNSPT 14:49 → EDTRNSPTTYP 15:44 → 2NB 15:53 → CMPTRNSPT 15:57 → 2NB 20:47 → ENPENDDIS 09-19 12:31 → 2NB 09-19 13:10
PROVIDERS: Emergency Medicine; Internal Medicine; ADMIT Internal Medicine
DX: J44.1 Chronic obstructive pulmonary disease with (acute) exacerbation (principal); F11.20 Opioid dependence, uncomplicated; Z68.41 Body mass index [BMI] 40.0-44.9, adult; G62.9 Polyneuropathy, unspecified; I10 Essential (primary) hypertension; F17.210 Nicotine dependence, cigarettes, uncomplicated; J30.9 Allergic rhinitis, unspecified; G47.33 Obstructive sleep apnea (adult) (pediatric); E66.9 Obesity, unspecified; E78.5 Hyperlipidemia, unspecified; E11.9 Type 2 diabetes mellitus without complications; Z79.4 Long term (current) use of insulin; I25.10 Atherosclerotic heart disease of native coronary artery without angina pectoris; E03.9 Hypothyroidism, unspecified; F31.9 Bipolar disorder, unspecified; Z79.82 Long term (current) use of aspirin; I34.0 Nonrheumatic mitral (valve) insufficiency; M10.9 Gout, unspecified; I95.1 Orthostatic hypotension
CPT/HCPCS: 2NBSP; 36415; 73560-RT; 87040; 93005; 93010; 96365; 96375; J0456; J0696; J1650; J2920; J2930; J3490; J7040

== ENCOUNTER 2016-10-06 09:57 | Inpatient (IN) | payer OTHER, MEDICARE ==
[~2016-10-06] VITALS: Ht 157.5 cm; Wt 105.1 kg
[~2016-10-06 09:57] MED LIST changes: +AZITHROMYCIN250 M1 PO; +OFLOXACIN5 M1 OT
--- NOTE | 2016-10-06 10:06 | NUR ---
51 Y/O FEMALE BIBA FROM HOME FOR EVAL OF L SIDED CHEST PAIN. PT RECEIVED 2 SPRAYS NITRO AND ASA EN ROUTE WITH NO CHANGE IN PAIN. ARRIVES A/OX 4, SPEAKING CLEARLY WITH NO DISTRESS NOTED. PT STATES SHE HAD EPISODE OF L SIDED CHEST PAIN RADIATING INTO L ARM/JAW WHICH RESOLVED AFTER APPROX 30 MIN YESTERDAY. STATES PAIN BEGAN AGAIN THIS AM, AROUND 0700. DR ZEE AT BEDSIDE EKG IN PROGRESS
--- NOTE | 2016-10-06 10:15 | NUR ---
MED WITH THIRD SUBLINGUAL NITRO.
--- NOTE | 2016-10-06 10:19 | ED CARDIAC/CP/PALPITATIONS ---
History of Present Illness General Chief Complaint: Chest Pain Stated Complaint: CP Source: patient, old records Exam Limitations: no limitations Vital Signs & Intake/Output Vital Signs & Intake/Output Vital Signs Date Time Temp Pulse Resp B/P B/P Pulse O2 O2 Flow FiO2 Mean Ox Delivery Rate 10/06 1423 53 15 105/59 97 Nasal 2.0L Cannula 10/06 1407 57 103/55 10/06 1359 55 106/54 10/06 1343 97.9 56 18 113/59 98 Nasal 2.0L Cannula 10/06 1319 50 110/56 10/06 1311 97.9 54 20 111/53 98 Nasal 2.0L Cannula 10/06 1251 97.8 54 20 113/62 97 Nasal 2.0L Cannula 10/06 1235 53 103/53 10/06 1220 97.8 55 18 115/56 98 Nasal 2.0L Cannula 10/06 1206 54 117/58 10/06 1202 97.8 53 20 126/63 97 Nasal 2.0L Cannula 10/06 1126 97.5 56 20 112/55 98 Nasal 2.0L Cannula 10/06 1106 98.2 68 18 115/59 10/06 1053 68 115/59 10/06 1035 96 Nasal 2.0L Cannula 10/06 1035 68 18 118/59 96 Nasal 2.0L Cannula 10/06 1018 98.2 66 14 122/58 94 Nasal 2.0L Cannula 10/06 1001 98.3 69 18 139/63 93 Nasal 2.0L Cannula Allergies Coded Allergies: codeine (Severe, ITCH 08/09/15) lemon (Severe, SOB 08/09/15) melatonin (Severe, HIVES/RASH 07/16/16) PER . -CG 07/16/16 propranolol (Severe, SHOCK PER PT 08/09/15) Uncoded Allergies: all ashley (Severe, SOB 07/13/16) Reconcile Medications Albuterol Sulfate (Proair Hfa) 8.5 GM HFA.AER.AD 1-2 PUF INH Q4-6 PRN PRN COPD (Reported) Aripiprazole (Abilify) 15 MG TABLET 15 MG PO 2200 clarify thoughts Aspirin (Ecotrin*) 81 MG TABLET.DR 1 TAB PO QAM HEART/BLOOD (Reported) Atorvastatin Calcium (Lipitor) 40 MG TABLET 1 TAB PO QHS CHOLESTEROL ( Reported) Budesonide/Formoterol Fumarate (Symbicort 160-4.5 Mcg Inhaler) 10.2 GM HFA.AER.AD 2 PUF INH BID COPD (Reported) Carbamazepine 100 MG TAB.CHEW 200 MG PO 0800,1700,2000 mood stabilization Ergocalciferol (Vitamin D2) (Vitamin D2) 50,000 UNIT CAPSULE 1 CAP PO QTHURS SUPPLEMENT (Reported) Fenofibrate Nanocrystallized (Fenofibrate) 145 MG TABLET 1 TAB PO DAILY CHOLESTEROL/TRIGLYCERIDES (Reported) Fluticasone Propionate 16 GM SPRAY.SUSP 2 SPRAY NASB DAILY ALLERGIES ( Reported) Folic Acid 1 MG TABLET 1 TAB PO QAM SUPPLEMENT (Reported) Furosemide 20 MG TABLET 1.5 TAB PO DAILY FLUID (Reported) Gabapentin 300 MG CAPSULE 300 MG PO Q4H PRN trigeminal neuralgia/neuropathy Levothyroxine Sodium 50 MCG TABLET 1 TAB PO DAILY THYROID (Reported) Linaclotide (Linzess) 145 MCG CAPSULE 1 CAP PO QAM CIC (Reported) [place] Carbonate 300 MG CAPSULE 600 MG PO QPM mood stabilization [place] Carbonate 300 MG CAPSULE 300 MG PO 0800 mood stabilization Meclizine HCl 12.5 MG TABLET 1 TAB PO TID PRN VERTIGO (Reported) Metformin HCl 1,000 MG TABLET 1 TAB PO BID DIABETES (Reported) Pantoprazole Sodium (Protonix) 40 MG TABLET.DR 1 TAB PO DAILY GERD (Reported) Prednisone 10 MG TABLET 1 TAB PO DAILY COPD (Reported) Sertraline HCl 50 MG TABLET 150 MG PO 0800 anti-depressant Triage Note: 51 Y/O FEMALE BIBA FROM HOME FOR EVAL OF L SIDED CHEST PAIN. PT RECEIVED 2 SPRAYS NITRO AND ASA EN ROUTE WITH NO CHANGE IN PAIN. ARRIVES A/OX 4, SPEAKING CLEARLY WITH NO DISTRESS NOTED. PT STATES SHE HAD EPISODE OF L SIDED CHEST PAIN RADIATING INTO L ARM/JAW WHICH RESOLVED AFTER APPROX 30 MIN YESTERDAY. STATES PAIN BEGAN AGAIN THIS AM, AROUND 0700. DR ZEE AT BEDSIDE EKG IN PROGRESS Triage Nurses Notes Reviewed? yes HPI: Patient presents for evaluation of a left sided crushing chest pain that began about 7:00 this morning. The patient pain is characterized as constant severe with associated left arm and left hand pain/paresthesias and left jaw pain. The patient also experienced shortness of breath during the episode today. She had a 30 minute episode yesterday that resolved with rest. The patient was treated with aspirin and 2 sublingual nitroglycerin sprays in the prehospital setting with only slight improvement. Her pain is currently 7 out of 10. Past History Travel History Traveled to [place] past 21 day No Medical History Any Pertinent Medical History? see below for history Neurological: dizziness, peripheral neuropathy, TIA, TRIGEMINAL NEURALGIA NEUROPATHY gait disturbance (uses a walker); ?neurological basis EENT: NONE Cardiovascular: angina (hx "atypical chest pain" ), hypertension, hyperlipidemia , HIGH TRYGLCERIDES recent cardiac catheterizations were negative for occlusive coronary artery disease PERICARDITIS Respiratory: asthma, bronchitis, obstructive sleep apnea, pneumonia, BIPAP Gastrointestinal: ACID REFLUX CONSTIPAT- CHRONIC/IDEOPA ABDOMINAL HERNIA Hepatic: CHOLELITHIASIS CHOLECYSTECTOMY Renal: NONE Musculoskeletal: R ANKLE FX AND REPAIR Psychiatric: anxiety, bipolar disease, depression, opioid dependence, substance abuse (possible benzo. 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 No Review of Systems Review of Systems Constitutional: Reports: no symptoms. EENTM: Reports: no symptoms. Respiratory: Reports: no symptoms. Cardiovascular: Reports: chest pain. GI: Reports: no symptoms. Genitourinary: Reports: no symptoms. Musculoskeletal: Reports: no symptoms. Skin: Reports: no symptoms. Neurological/Psychological: Reports: no symptoms. Hematologic/Endocrine: Reports: no symptoms. Immunologic/Allergic: Reports: no symptoms. All Other Systems: Reviewed and Negative Physical Exam Physical Exam Cardiovascular: see below Comments: Gen.: Well-nourished, well-developed, mild respiratory distress. Mild discomfort secondary to chest pain. Obese. Head: Normocephalic, atraumatic. Eyes: Normal inspection bilaterally Ears: Normal inspection bilaterally Nose: Normal inspection Throat/mouth : Moist mucosa Neck: Supple, full range of motion, no goiter Heart: Regular rate and rhythm, no murmurs rubs or gallops Lungs: Clear to auscultation bilaterally with normal air entry Chest: Nontender Back: Normal range of motion Abdomen: Soft, nontender, nondistended, normal bowel sounds Extremities: Normal range of motion grossly, equal radial pulses, no cyanosis clubbing or edema, calves nontender Neurologic: Cranial nerves grossly intact, speech is clear Skin: warm and dry Psychiatric: Calm, cooperative, no apparent delusions or hallucinations Core Measures ACS in differential dx? Yes Severe Sepsis Present: No Septic Shock Present: No Progress Differential Diagnosis: AMI, costochondritis, musculoskeletal pain, pancreatitis , pericarditis, pneumonia, pneumothorax, pulmonary embolism, unstable angina, aortic disease, acute coronary syndrome Plan of Care: Orders Procedure Date/time Status OXYGEN 10/07 UNK Complete OXYGEN DAILY CHARGE 10/07 UNK Complete CONTIN. POS. AIRWAY PRESS. CHG 10/07 UNK Complete OXYGEN SETUP CHG 10/06 UNK Complete OXYGEN 10/06 UNK Complete OXYGEN TRANSPORT 10/06 UNK Complete Initial ED EKG: NSR, rate (66), ST depression (DIFFUSELY) Prior EKG: changed (INCREASED ST DEPRESSIONS) Repeat EKG: unchanged Comments: 10/06/2016 10:18:05 AM patient's case discussed with Dr. Camejo including the diffuse ST segment depressions seen on EKG (these are arguably worse than on previous). I did discuss with Dr. Camejo the possibility of acute cardiac catheterization, however, the patient does not have EKG criteria and for this. He agrees with attempts to treat the patient's chest pain and reevaluation. I will update Dr. Camejo after medications. 10/06/2016 10:37:44 AM unfortunately, since he is pain remains unchanged. She remains hemodynamically stable with a heart rate in the mid 60s and a normal blood pressure. He has been treated with sublingual nitroglycerin, and IV nitroglycerin drip, Lopressor, aspirin and will have a heparin drip initiated SOON POSSIBLE (rectal examination heme negative). 10/06/2016 11:09:31 AM Danika has had virtually no relief of pain. I have ordered morphine for pain control. 10/06/2016 11:22:46 AM patient's case discussed with Dr. Camejo given her ongoing pain. He recommends titrating the nitroglycerin drip and agrees with a small amount of morphine for pain. He also agrees with CAT scan of the chest below patient's presentation is fairly typical for acute coronary syndrome, the time course is unusual. 10/06/2016 12:18:30 PM Danika'regina pain is improving. She appears considerably more comfortable. Departure Departure Disposition: STILL A PATIENT Condition: Stable Clinical Impression Primary Impression: Chest pain Qualifiers: Chest pain type: unspecified Qualified Code: R07.9 - Chest pain, unspecified Referrals: KENNY STEVENS D.O. (PCP/Family) Departure Forms: Customer Survey General Discharge Information Admission Note Spoke With: NYDIA CAMEJO MD Documentation of Exam: Documentation of any treatments & extenuating circumstances including Concerns Regarding Discharge (functional status, medication knowledge or non-compliance, living conditions, etc.) that warrant an admission rather than observation: Bindu presents with a very atypical sounding chest pain consistent with angina/acute coronary syndrome. However the patient also has clear coronary arteries on prior cardiac catheterization. She has multiple risk factors for coronary artery disease. Her presentation is very challenging at the underlying cause of her chest pain is unclear at this point. Given this I feel the patient requires hospitalization for continuous cardiac monitoring given the possibility of ST segment changes or ischemic associated dysrhythmia. I feel she will also require serial EKGs and troponin determinations and continuation of heparinization initiated in the emergency department. She should also be treated with Nitropaste and morphine as needed for pain. I do not feel the patient is a good candidate for outpatient management given her ongoing pain. I do not feel it likely she could comply with outpatient treatment planning and potentially return in worse clinical condition. In addition to the above, echocardiography and stress testing should also be considered. Patient's current medications and management of her chronic medical problems should also be optimized. I feel she will require a multiple day hospitalization. Critical Care Note Critical Care Note Critical Care Time: 30-74 min Qualifiers: Chest pain type: unspecified Qualified Code: R07.9 - Chest pain, unspecified Referrals: KENNY STEVENS D.O. (PCP/Family) Departure Forms: Customer Survey General Discharge Information Admission Note Spoke With: NYDIA CAMEJO MD Documentation of Exam: Documentation of any treatments & extenuating circumstances including Concerns Regarding Discharge (functional status, medication knowledge or non-compliance, living conditions, etc.) that warrant an admission rather than observation: Bindu presents with a very atypical sounding chest pain consistent with angina/acute coronary syndrome. However the patient also has clear coronary arteries on prior cardiac catheterization. She has multiple risk factors for coronary artery disease. Her presentation is very challenging at the underlying cause of her chest pain is unclear at this point. Given this I feel the patient requires hospitalization for continuous cardiac monitoring given the possibility of ST segment changes or ischemic associated dysrhythmia. I feel she will also require serial EKGs and troponin determinations and continuation of heparinization initiated in the emergency department. She should also be treated with Nitropaste and morphine as needed for pain. I do not feel the patient is a good candidate for outpatient management given her ongoing pain. I do not feel it likely she could comply with outpatient treatment planning and potentially return in worse clinical condition. In addition to the above, echocardiography and stress testing should also be considered. Patient's current medications and management of her chronic medical problems should also be optimized. I feel she will require a multiple day hospitalization. Critical Care Note Critical Care Note Critical Care Time: 30-74 min
--- NOTE | 2016-10-06 10:30 | NUR ---
NITROGLYCERIN DRIP INITIATED AT 10 MCG/HOUR. CURRENT BP 122/58; HEART RATE 64. DR ZEE AT BEDSIDE TO PERFORM RECTAL EXAM FOR OCCULT BLOOD PRIOR TO INITIATION OF HEPARIN DRIP. THIS NURSE IN ATTENDANCE FOR SUPERVISION AND PATIENT SUPPORT.
--- NOTE | 2016-10-06 10:38 | NUR ---
HUGO TEST NEGATIVE PER DR ZEE - THIS RN CAN CONFIRM RESULT AT THIS TIME.
--- NOTE | 2016-10-06 11:04 | NUR ---
HEPARIN GTT STARTED IN IV SITE #1 (CONFIRMED WITH PHARMACY THAT NITRO GTT AND HEPARIN GTT CAN BE INFUSED SIMULTANEOUSLY). DOSE AND RATE CONFIRMED WITH TANIA RN. SECOND IV EST TO R FOREARM #22.
[2016-10-06 11:12] LABS: ABSOLUTE BASOPHIL COUNT 0 /CUMM (0.0-0.2); ABSOLUTE EOSINOPHIL COUNT 0.3 /CUMM (0.0-0.7); ABSOLUTE GRANULOCYTE CT 7.2 /CUMM (1.4-6.5); ABSOLUTE LYMPH COUNT 2.5 /CUMM (1.2-3.4); ABSOLUTE MONOCYTE COUNT 0.4 /CUMM (0.10-0.60); BASOPHIL % 0.4 % (0.0-2.0); EOSINOPHIL % 2.4 % (0-5); GRANULOCYTE % 69.2 % (42.2-75.2); HEMATOCRIT 40.5 % (37-47); MEAN CORPUSCULAR HGB 29.9 PG (27.0-31.0); MEAN CORPUSCULAR HGB CONC 32.5 G/DL (33.0-37.0); MEAN CORPUSCULAR VOLUME 91.9 FL (81.0-99.0); MEAN PLATELET VOLUME 9.3 FL (7.4-10.4); PLATELET COUNT 290 /CUMM (130-400); RBC DISTRIBUTION WIDTH 14.1 % (11.5-14.5); RED BLOOD CELL CT 4.41 /CUMM (4.20-5.40); WHITE BLOOD CELL COUNT 10.4 /CUMM (4.8-10.8)
--- NOTE | 2016-10-06 11:25 | RADIOLOGY REPORT ---
EXAMINATION: XR PORTABLE CHEST CLINICAL INFORMATION: Left chest pain. COMPARISON: Several prior chest x-rays, most recent of which is dated 09/17/2016. TECHNIQUE: Portable AP semierect view of the chest was obtained. FINDINGS: The cardiomediastinal silhouette appears prominent, most consistent with portable semierect technique. Previous CT scan of the abdomen from 03/19/2016 had shown a normal heart size with prominent epicardiac fat. Lungs bilaterally are symmetrically expanded without focal consolidation, effusion or pneumothorax seen. Hazy opacity over left lung base is related to overlapping breast shadow. Bony structures are unremarkable. IMPRESSION: No acute cardiopulmonary process.
--- NOTE | 2016-10-06 11:27 | NUR ---
ASSUMED CARE , PT STATES THAT SHE HAS BEEN HAVING MID STERNALO L SIDE CP THAT RADIATES INTO HER L ARM SINCE 0700 THIS AM, PT STATES THAT SHE HAD AN EPISODE OF SAME YESTERDAY THAT LASTED ABOUT 40 MINUTES AND WENT AWAY, PT HAS HISTORY OF COPD AND IS ON 2L O2 VIA NC AT BASELINE, O2 SAT 98 % AT THIS TIME. PT ON NITRO DRIP AT 10 MCG AT THIS TIME, BP 112/55 HR 55 , PER DR ZEE DRIP TO BE INCREASED TO 12.5 MCG AT THIS TIME DUE TO CONTINUED CP.INCREASED AT THIS TIME. HEPARIN DRIP INFUSING AT 20 ML/HR. PT MEDICATED WITH MORPHINE 4 MG IV AT THIS TIME AND PT TO CT SCAN FOR CTA.BP 113/55 HR 54 SINUS MONISHA
[2016-10-06 11:43] LABS: PT 9.9 SEC (9.4-12.5); PTT 29 SEC (25-37)
--- NOTE | 2016-10-06 12:00 | NUR ---
PT RETURNED FROM CT SCAN, STATES THAT AFTER MORPHINE MID STERNAL CP 10 , SINUS MONISHA MONITOR HR 53, BP 125/63, O2 SAT 97 % ON 2L VIA NC. NITRO DRIP AT 7.5 MK/HR AND HEPARIN DRIP INFUSING AT 20 ML /HR. PT REMAINS AWAKE AND ALERT .FLUIDS INFUSING AT 250/HR.
--- NOTE | 2016-10-06 12:08 | NUR ---
PT IS NIDDM AND FS AT THIS TIME 121. PT AWARE AT THIS TIME WE DO NOT WANT HER TO EAT.
--- NOTE | 2016-10-06 12:21 | NUR ---
PT STATES THAT MID/LSIDDE CP IS 4/10 AT THIS TIME AND DESCRIBES A PRESSURE. DR CAMEJO HERE TO SEE PT
--- NOTE | 2016-10-06 12:23 | NUR ---
NITRO DRIP INCREASED TO 15.0 MCG /HR , [address] ZEE ORDER FOR 4/10 CP.
--- NOTE | 2016-10-06 12:30 | CT SCAN REPORT ---
EXAM: CTA Chest CLINICAL INDICATION: Chest and left arm pain. TECHNIQUE: Nonenhanced CT of the chest was performed. This was followed by axial multidetector CTA scan of the chest following the intravenous administration of 100 cc Optiray 350. Coronal and sagittal reformatted images were also obtained at the acquisition workstation. DLP: 1285 mGy-cm COMPARISON: Same day chest x-ray and chest CT 03/10/2016. Chest CTA 09/08/2014 FINDINGS: VASCULAR: Normal caliber thoracic aorta without evidence of aneurysm or dissection. Normal three-vessel takeoff of the aortic arch. Visualized proximal portions of the bilateral common carotid, subclavian and vertebral arteries are patent without appreciable stenosis. The splenic and hepatic arteries have separate takeoffs from the abdominal aorta and appear patent. The superior mesenteric artery is widely patent proximally. The proximal portions of bilateral renal arteries appear patent. Opacified portions of the pulmonary arteries and pulmonary veins are grossly unremarkable. NON-VASCULAR: The heart is normal in size. No coronary artery calcifications or pericardial effusion. Similar scattered prominent mediastinal lymph nodes. Central airways are patent. No focal lung consolidation. Mild diffuse groundglass opacities are nonspecific but potentially sales representative business courses of atelectasis from poor inspiration. No pleural effusion or pneumothorax. Stable 4 mm pulmonary nodule of the left upper lobe (image [id number], series 5). The gallbladder has been surgically removed. Subcentimeter density within the posterior right hepatic lobe is nonspecific but stable. IMPRESSION: 1. Normal caliber thoracic aorta. No evidence of dissection. 2. Stable 4 mm left upper lobe pulmonary nodule.
--- NOTE | 2016-10-06 12:35 | NUR ---
BP 103/53 HR 53 AT THIS TIME.
--- NOTE | 2016-10-06 12:51 | NUR ---
PT REMAINS ALERT AND ORIENTED, BP 113/62 HR 53 AND SINUS MONISHA, STATES THAT PRESSURE IN L SIDE/ NID CP REMAINS A 4/10, NITRO DRIP AT 15MCG/HR AND HEPARIN DRIP AT 20ML/HR, REPEAT PTT AT 1703
--- NOTE | 2016-10-06 13:13 | NUR ---
BP 111/53, PT NOTED TO MONISHA TO 48-52 AT THIS TIME, STATES THAT CHEST PRESSURE REMAINS 4/10 AND THAT THE ONLY THING THAT HELPED WAS THE MORPHINE . MD AWARE OF HR
--- NOTE | 2016-10-06 13:17 | NUR ---
PT MEDICATED WITH MORPHINE PER ORDER FOR CONTINUED CP.
--- NOTE | 2016-10-06 13:44 | NUR ---
PT STATES THAT CP PRESSURE IS NOW 1/10 AFTER MORPHINE. PT RESTING ON STRETCHER , ALERT AND ORIENTED HR 56 AT THIS TIME
--- NOTE | 2016-10-06 13:57 | NUR ---
DR ZEE AT BEDSIDE TO DISCUSS PLAN OF CARE
--- NOTE | 2016-10-06 14:06 | NUR ---
PER DR ZEE NITRO DRIP DISCONTINUED AND 1 INCH NITRO PAST PLACED TO L SIDE CHEST. BP 103/55 HR 55. PT RESTING ON STRETCHER, CHEST PRESSURE 1/10
--- NOTE | 2016-10-06 15:07 | History & Physical ---
DOUGIE ALFREDO 10/06/16 1507: General Information and HPI Source of Information: patient Exam Limitations: no limitations History of Present Illness: Ms. Virgen is a 50 year old woman with a past medical history significant for Postural Orthostatic Tachycardia Syndrome (POTS) diagnosed in 2014, migraine, diabetes, peripheral and trigeminal neuropathy, HTN, cardiac catheterization negative for CAD, pericarditis, COPD on 2 L of oxygen at home, SHIRIN on BIPAP, bipolar disorder BIBA from home with complaint of chest pain. Patient received 2 sublingual nitroglycerin sprays and aspirin en route to the hospital. According to patient pain started at 7 AM this morning when she was going to bathroom. Started all of a sudden, left side of her chest, 10/10 in intensity, radiating to her jaw and left arm associated with diaphoresis, nausea and palpitations. She reports a similar episode of chest pain yesterday that lasted for 30 minutes and relieved by taking Advil. On arrival to ER her temperature was 98.3, pulse 69, respiratory rate 18, blood pressure 139/63 and oxygen saturation 93% on 2 L. EKG showed some T-wave inversions in chest and lateral leads. She was given sublingual nitroglycerin again. First troponin negative. Because of continuous chest pain she was started on nitroglycerin drip. She was also given metoprolol and IV morphine. She was also started on IV heparin drip. Later on her chest pain got better and nitroglycerin drip was discontinued. Chest x-rays was normal and CTA chest did not show any evidence of aortic dissection. 1 g nitroglycerin patch was applied topically. Upon my interview with the patient and she was pain-free. Please note that patient recently had a nuclear stress test in May [address] Landon and it was normal. She also had a cardiac cath in April that did not show any evidence of coronary artery disease. Her echo was recently done in May 09 that did not show any significant abnormality. Patient still smokes 10 cigarettes per day. She denies drinking alcohol or using illicit drugs. She is . Lives alone. No kids. Allergies/Medications Allergies: Coded Allergies: codeine (Severe, ITCH 08/09/15) lemon (Severe, SOB 08/09/15) melatonin (Severe, HIVES/RASH 07/16/16) PER . -CG 07/16/16 propranolol (Severe, SHOCK PER PT 08/09/15) Uncoded Allergies: all ashley (Severe, SOB 07/13/16) Home Med list Albuterol Sulfate (Proair Hfa) 8.5 GM HFA.AER.AD 1-2 PUF INH Q4-6 PRN PRN COPD (Reported) Aripiprazole (Abilify) 15 MG TABLET 15 MG PO 2200 clarify thoughts Aspirin (Ecotrin*) 81 MG TABLET.DR 1 TAB PO QAM HEART/BLOOD (Reported) Atorvastatin Calcium (Lipitor) 40 MG TABLET 1 TAB PO QHS CHOLESTEROL ( Reported) Budesonide/Formoterol Fumarate (Symbicort 160-4.5 Mcg Inhaler) 10.2 GM HFA.AER.AD 2 PUF INH BID COPD (Reported) Carbamazepine 100 MG TAB.CHEW 200 MG PO 0800,1700,2000 mood stabilization Ergocalciferol (Vitamin D2) (Vitamin D2) 50,000 UNIT CAPSULE 1 CAP PO QTHURS SUPPLEMENT (Reported) Fenofibrate Nanocrystallized (Fenofibrate) 145 MG TABLET 1 TAB PO DAILY CHOLESTEROL/TRIGLYCERIDES (Reported) Fluticasone Propionate 16 GM SPRAY.SUSP 2 SPRAY NASB DAILY ALLERGIES ( Reported) Folic Acid 1 MG TABLET 1 TAB PO QAM SUPPLEMENT (Reported) Furosemide 20 MG TABLET 1.5 TAB PO DAILY FLUID (Reported) Gabapentin 300 MG CAPSULE 300 MG PO Q4H PRN trigeminal neuralgia/neuropathy Levothyroxine Sodium 50 MCG TABLET 1 TAB PO DAILY THYROID (Reported) Linaclotide (Linzess) 145 MCG CAPSULE 1 CAP PO QAM CIC (Reported) [place] Carbonate 300 MG CAPSULE 600 MG PO QPM mood stabilization [place] Carbonate 300 MG CAPSULE 300 MG PO 0800 mood stabilization Meclizine HCl 12.5 MG TABLET 1 TAB PO TID PRN VERTIGO (Reported) Metformin HCl 1,000 MG TABLET 1 TAB PO BID DIABETES (Reported) Pantoprazole Sodium (Protonix) 40 MG TABLET.DR 1 TAB PO DAILY GERD (Reported) Prednisone 10 MG TABLET 1 TAB PO DAILY COPD (Reported) Sertraline HCl 50 MG TABLET 150 MG PO 0800 anti-depressant Compliance With Home Meds: GOOD Past History Travel History Traveled to [place] past 21 day No Medical History Neurological: dizziness, peripheral neuropathy, TIA, TRIGEMINAL NEURALGIA NEUROPATHY gait disturbance (uses a walker); ?neurological basis EENT: NONE Cardiovascular: angina (hx "atypical chest pain" ), hypertension, hyperlipidemia , HIGH TRYGLCERIDES recent cardiac catheterizations were negative for occlusive coronary artery disease PERICARDITIS Respiratory: asthma, bronchitis, obstructive sleep apnea, pneumonia, BIPAP Gastrointestinal: ACID REFLUX CONSTIPAT- CHRONIC/IDEOPA ABDOMINAL HERNIA Hepatic: CHOLELITHIASIS CHOLECYSTECTOMY Renal: NONE Musculoskeletal: R ANKLE FX AND REPAIR Psychiatric: anxiety, bipolar disease, depression, opioid dependence, substance abuse (possible benzo. 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 MOTHER (CHF, COPD). Psychosocial History Services at Home: Nursing Smoking Status: Current Everyday Smoker (10 cig/day) ETOH Use: denies use Illicit Drug Use: denies illicit drug use Functional Ability ADLs Independent: dressing, eating, toileting, bathing. Ambulation: independent IADLs Independent: shopping, housework, finances, food prep, telephone, transportation , medication admin. Review of Systems Review of Systems Constitutional: Reports: see HPI. Exam & Diagnostic Data Last 24 Hrs of Vital Signs/I&O Vital Signs Date Time Temp Pulse Resp B/P B/P Pulse O2 O2 Flow FiO2 Mean Ox Delivery Rate 10/06 1500 97 Nasal 2.0L Cannula 10/06 1458 59 15 112/55 97 Nasal 2.0L Cannula 10/06 1423 53 15 105/59 97 Nasal 2.0L Cannula 10/06 1407 57 103/55 10/06 1359 55 106/54 10/06 1343 97.9 56 18 113/59 98 Nasal 2.0L Cannula 10/06 1319 50 110/56 10/06 1311 97.9 54 20 111/53 98 Nasal 2.0L Cannula 10/06 1251 97.8 54 20 113/62 97 Nasal 2.0L Cannula 10/06 1235 53 103/53 10/06 1220 97.8 55 18 115/56 98 Nasal 2.0L Cannula 10/06 1206 54 117/58 10/06 1202 97.8 53 20 126/63 97 Nasal 2.0L Cannula 10/06 1126 97.5 56 20 112/55 98 Nasal 2.0L Cannula 10/06 1106 98.2 68 18 115/59 10/06 1053 68 115/59 10/06 1035 96 Nasal 2.0L Cannula 10/06 1035 68 18 118/59 96 Nasal 2.0L Cannula 10/06 1018 98.2 66 14 122/58 94 Nasal 2.0L Cannula 10/06 1001 98.3 69 18 139/63 93 Nasal 2.0L Cannula Intake & Output 10/06 1600 10/06 0800 10/06 0000 Intake Total Output Total Balance Patient 232 lb Weight Weight Reported by Patient Measurement Method Physical Exam General Appearance Alert, Oriented X3, Cooperative, No Acute Distress HEENT Mucous Membr. moist/pink Neck Supple Cardiovascular Regular Rate, No Murmurs Lungs Clear to Auscultation Abdomen Normal Bowel Sounds, Soft, No Tenderness, obese Neurological Normal Speech, Strength at 5/5 X4 Ext, Sensation Intact, Cranial Nerves 3-12 NL Extremities No Edema Last 24 Hrs of Labs/Matthieu: Laboratory Tests 10/06/16 1020: Anion Gap 11, Estimated GFR > 60, BUN/Creatinine Ratio 23.3, Glucose 146 H, Calcium 9.5, Magnesium 1.8, Troponin I < 0.01, PT 9.9, INR 0.94, APTT 29, CBC w Diff NO MAN DIFF REQ, RBC 4.41, MCV 91.9, MCH 29.9, RDW 14.1, MPV 9.3, Gran % 69.2, Lymphocytes % 23.8, Monocytes % 4.2, Eosinophils % 2.4, Basophils % 0.4, Absolute Granulocytes 7.2 H, Absolute Lymphocytes 2.5, Absolute Monocytes 0.4, Absolute Eosinophils 0.3, Absolute Basophils 0, PUBS MCHC 32.5 L Assessment/Plan Assessment: Ms. Virgen is a 50 year old woman with a past medical history significant for Postural Orthostatic Tachycardia Syndrome (POTS) diagnosed in 2014, migraine, diabetes, peripheral and trigeminal neuropathy, HTN, cardiac catheterization negative for CAD, pericarditis, COPD on 2 L of oxygen at home, SHIRIN on BIPAP, bipolar disorder. ECHOCARDIOGRAM 05/09/16 CONCLUSIONS Normal left ventricular ejection fraction visually estimated at > 60%. Mild concentric left ventricular hypertrophy. Trace tricuspid regurgitation. No evidence of pulmonary hypertension. Small pericardial effusion. No echocardiographic findings to suggest a hemodynamically significant pericardial effusion. DIPYRIDAMOLE STRESS W/NUC IMAG 05/14/16 IMPRESSION: The test was supervised by the interpreting Pipelines Superintendent, who was in attendance during the entire test. No EKG evidence of stress induced myocardial ischemia. Pateint is going to be admitted on tele floor to rule out ACS. PLAN * Monitor vitals closely * keep O2 sat >92% * Keep electrolytes within normal range * serial EKGs and Trops * Continue Heparin for 48 hours * BIPAP at night * Tobacco cessasion counselling * DVT prophylaxis * DNR/DNI * Health proxy: Sister, Rosario [phone] As Ranked By This Provider Problem List: 1. CHEST PAIN Core Measures/Miscellaneous Acute Coronary Syndrome ACS Diagnosis: No Cerebrovascular Accident CVA/TIA Diagnosis: No Congestive Heart Failure CHF Diagnosis: No VTE (View Protocol) VTE Risk Factors: Acute medical illness, Age > 40, Smoking No [facility] VTE prophylaxis d/t: No contraindications No VTE Pharm Prophylaxis d/t: No contraindications VTE Diagnosis: No VTE Type: NONE VTE Confirmed by (Test): NONE Sepsis (View Protocol) Severe Sepsis Present: No Septic Shock Septic Shock Present: No Miscellaneous Documentation Attending Case Discussed With: NYDIA CAMEJO MD Primary Care Physician: KENNY STEVENS D.O. 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 psychiatrist Dr. Jacqueline gomez Level of Patient Care: Telemetry Consults Needed: Consulting Specialty: Cardiology NYDIA CAMEJO MD 10/06/16 1935: Attending Review Statement Attending Statement Attending Statement: examined this patient, discuss w/resident/PA/SUBMARINE ELEMENT COORDINATOR, agreed w/resident/PA/SUBMARINE ELEMENT COORDINATOR, discussed with family, reviewed EMR data (avail), discussed with nursing, reviewed images, amended to note
--- NOTE | 2016-10-06 15:12 | NUR ---
ASSUMED CARE OF PT, SHE REPORTS CP / TO LEFT CHEST WALL RADIATING TO JAW AND LEFT ARM SINCE YESTERDAY WHEN SHE WAS WALKING TO BATHROOM IN HER HOME WHERE SHE LIVES ALONE. HX OF COPD, ON 2L NC CONT AT HOME. REPORTS NO RELIEF WITH NTG, ON MONITORS IN ROOM. HEPARIN GTT RUNNING AT THIS TIME. SKIN WARM, DRY AND INTACT. WILL CONT TO MONITOR.
[2016-10-06] MEDS ORDERED: PREDNISONE10 M2 PO (15:16)
[2016-10-06] MEDS ORDERED: MECLIZINE HCL12.5 M1 PO (15:17)
--- NOTE | 2016-10-06 16:10 | NUR ---
SPOKE WITH DR. CONSTANTINO REGARDING PT AND NOTIFIED HER 1600 EKG IS COMPLETED. SHE REPORTS WE CAN WAIT UNTIL 1700 TO DRAW TROPONIN WITH NEXT ORDERED PT/PTT.
--- NOTE | 2016-10-06 16:17 | NUR ---
CALLED DIETARY AND ORDERED DINNER TRAY
--- NOTE | 2016-10-06 16:23 | NUR ---
CALLED PHARMACY FOR MEDICATIONS NOT STOCKED IN ED. PER MOLDING MACHINE SETTER PT WILL GET A BED NOW. NOTIFIED PHARMACY.
--- NOTE | 2016-10-06 16:25 | NUR ---
Emergency Dept [facility] Admit Note: To be admitted to [facility] by DR CAMEJO with CHEST PAIN as the diagnosis, to TELE location. Nursing Career Discovery Teacher and admitting notified 10/06/16 at 1545 PT WILL GO TO ROOM 187-01
--- NOTE | 2016-10-06 16:43 | NUR ---
ATTEMPTED TO GIVE REPORT AT THIS TIME AND WAS TOLD RN WILL CALL BACK.
--- NOTE | 2016-10-06 16:44 | NUR ---
TROPONIN AND PT/PTT DRAWN BY LIQUOR DEPARTMENT MANAGER AND SENT TO LAB.
--- NOTE | 2016-10-06 17:07 | NUR ---
REPORT TO DANNIE GALAN AND ANSWERED ALL QUESTIONS. TRANPORT ON WAY. WILL TRANSPORT WITH THIS RN.
--- NOTE | 2016-10-06 17:08 | NUR ---
TRANSPORT HERE FOR PT
--- NOTE | 2016-10-06 17:11 | NUR ---
PT TRANSPORTED TO FLOOR
[2016-10-06 17:38] VITALS: BP 108/70
[2016-10-06 19:28] LABS: PTT 35 SEC (25-37)
--- NOTE | 2016-10-06 21:07 | NUR ---
PT ADMITTED TO ROOM 187 AT ABOUT 1715. PT A/O. VSS. NO C/O PAIN. PT ON HEPARIN GTT RUNNING AT 20ML/HR. NO INFILTRATION. SKIN INTACT. PT ORRIENTED TO ROOM. SAFTEY MAINTAINED. CALL ZEE WITHIN REACH. PT STATES SHE HAS DIZZY SPELLS AT HOME AND USES THE WALKER TO KEEP HER BALANCE. REFUSSED BED ALARM BUT CALLS WHEN NEEDS ASSISTANCE TO BATHROOM.
[2016-10-07 01:05] VITALS: BP 144/60
[2016-10-07 03:08] LABS: PTT 70 SEC (25-37)
--- NOTE | 2016-10-07 03:38 | NUR ---
AT 2330 PT C/O CHEST PAIN 5/10, PT STATES CHEST PAIN IMPROVED SOME AFTER IV MORPHINE WAS GIVEN BY PREVIOUS RN. PT IS SOB, ON 2L NC, NAUSEOUS, AND C/O HEADACHE. TROPONIN NEGATIVE, EKG UNCHANGED. VSS, MADIHA PEREZ MD, PER MD SHE WILL ORDER TUMS PRN, NO ADDITIONAL PAIN MEDS TO BE GIVEN. WILL MONITOR.
--- NOTE | 2016-10-07 03:41 | NUR ---
AT 0030 PT O2 SAT 85% ON 2L CPAP, PAGED RESPIRATORY, RT TO BEDSIDE, PT PLACED ON 3L CPAP. O2 SAT 90%. WILL MONITOR
[2016-10-07 06:51] VITALS: BP 128/70
[2016-10-07 08:09] VITALS: BP 130/78
--- NOTE | 2016-10-07 13:54 | Patient Discharge Instructions ---
Discharge Instructions General Discharge Information You were seen/treated for: you were here for chest pain and we ruled out acut coronary syndrome Special Instructions: Please follow-up with your PCP within a week of discharge Please follow-up with your transcriptionist, Dr. Skaggs with in a week of discharge Diet Continue normal diet: No Recommended Diet: Heart Healthy Acute Coronary Syndrome Inclusion Criteria At DC or during hospital stay patient has or had the following: ACS DIAGNOSIS No Discharge Core Measures Meds if any: Prescribed or Continued at Discharge Meds if any: NOT Prescribed or Continued at Discharge Congestive Heart Failure Inclusion Criteria At DC or during hospital stay patient has or had the following: CHF DIAGNOSIS No Discharge Core Measures Meds if any: Prescribed or Continued at Discharge Meds if any: NOT Prescribed or Continued at Discharge Cerebrovascular accident Inclusion Criteria At DC or during hospital stay patient has or had the following: CVA/TIA Diagnosis No Discharge Core Measures Meds if any: Prescribed or Continued at Discharge Meds if any: NOT Prescribed or Continued at Discharge Venous thromboembolism Inclusion Criteria VTE Diagnosis No VTE Type NONE VTE Confirmed by (Test) NONE Discharge Core Measures - Per Current guidelines, there needs to be overlap - treatment for the first 5 days of Warfarin therapy. - If discharged on Warfarin prior to 5 days of - overlap therapy, the patient will need to be - assessed for post discharge needs including - *Post discharge parental anticoagulation - *Warfarin and/or parental anticoagulation education - *Follow up date to check INR post discharge At least 5 days overlap therapy as Inpatient No Meds if any: Prescribed or Continued at Discharge Warfarin No Note: Overlap Therapy is Warfarin and Anticoagulant Meds if any: NOT Prescribed or Continued at Discharge
--- NOTE | 2016-10-07 13:55 | PN- Cardiology ---
Subjective Subjective: The patient continues to complain of intermittent substernal chest pressure, which has been present for days. No shortness of breath. No palpitations. No lightheadedness or dizziness. No nausea or vomiting. Objective Vital Signs and I&Os Vital Signs Date Time Temp Pulse Resp B/P B/P Pulse O2 O2 Flow FiO2 Mean Ox Delivery Rate 10/07 1320 95 Nasal 2.0L Cannula 10/07 0809 97.6 58 18 130/78 97 Nasal Cannula 10/07 0800 94 Nasal 3.0L Cannula 10/07 0651 98.3 57 16 128/70 93 Nasal 3.0L Cannula 10/07 0235 92 10/07 0124 90 CPAP 3.0L 10/07 0105 97.6 63 16 144/60 87 CPAP 2.0L 10/07 0022 82 95 10/07 0000 90 CPAP 3.0L 10/06 1848 Nasal 2.0L Cannula 10/06 1826 99 Nasal 2.0L Cannula 10/06 1738 98.3 56 20 108/70 95 10/06 1643 56 120/59 10/06 1640 52 15 120/59 97 Nasal 2.0L Cannula 10/06 1500 97 Nasal 2.0L Cannula 10/06 1458 59 15 112/55 97 Nasal 2.0L Cannula 10/06 1423 53 15 105/59 97 Nasal 2.0L Cannula 10/06 1407 57 103/55 10/06 1359 55 106/54 Intake & Output 10/07 1600 10/07 0800 10/07 0000 10/06 1600 10/06 0800 10/06 0000 Intake Total 426.4 230 Output Total Balance 426.4 230 Intake, IV 226.4 30 Intake, Oral 200 200 Number 0 Bowel Movements Patient 232 lb 230 lb 232 lb Weight Weight Chair scale Reported by Patient Measurement Method Physical Exam: Gen: NAD HEENT: normal Lungs: clear to auscultation, normal resp. effort Heart: RRR, S1, S2, no murmurs Abdomen: Soft, nontender, no masses Extremities: No clubbing, cyanosis, or edema. Neuro: Alert and oriented x 3, cranial nerves intact Current Medications: Current Medications Sig/Ralph Start time Last Medication Dose Route Stop Time Status Admin Albuterol Sulfate 3 ML Q4P PRN 10/06 1900 AC INH Aripiprazole 15 MG 2200 10/06 2200 AC 10/06 PO 2204 Aspirin Buffered 81 MG QAM 10/07 1000 AC 10/07 PO 1124 Atorvastatin Calcium 40 MG AT BEDTIME 10/06 2200 10/06 PO 2204 Budesonide/ 2 PUF BID 10/06 2200 10/07 Formoterol Fumarate INH 1125 Calcium Carbonate 500 MG Q6-PRN PRN 10/07 0100 10/07 PO 0107 Carbamazepine 200 MG 0800,1700,2000 10/06 1700 10/07 PO 1124 Ergocalciferol 50,000 IU QTHURS 10/11 1000 AC PO Fenofibrate 145 MG DAILY 10/06 1519 AC 10/07 PO 1125 Fluticasone 2 SPRAY DAILY 10/07 1000 AC 10/07 Propionate TRUMAN 1128 Folic Acid 1 MG QAM 10/07 1000 10/07 PO 1124 Furosemide 30 MG DAILY 10/07 1000 10/07 PO 1125 Gabapentin 300 MG Q4H PRN 10/06 1530 AC PO Heparin Sodium 6,258 UNIT ONE ONE 10/06 2000 DC 10/06 (Porcine) IV 10/06 2000 2205 Heparin Sodium/ 25,000 UNIT Q24H 10/06 1030 10/07 Dextrose IV 0809 Dextrose/Water 500 ML Insulin Aspart 0 TIDAC 10/06 1700 10/07 SC 1251 Levothyroxine Sodium 0.05 MG DAILY 10/07 0700 10/07 PO 0539 [place] Carbonate 300 MG 0800 10/07 0800 10/07 PO 1126 Buna Carbonate 600 MG QPM 10/06 2200 10/06 PO 2205 Morphine Sulfate 2 MG ONCE ONE 10/06 2315 UT 10/06 IV 10/06 2316 2311 Nitroglycerin 0.4 MG ONCE ONE 10/07 0700 DC SL 10/07 0701 Nitroglycerin 1 GM ONCE ONE 10/06 1415 DC 10/06 TOP 10/06 1416 1415 Nitroglycerin 0 .STK-MED ONE 10/06 1406 [facility] Nitroglycerin 25 MG Q24H 10/06 1030 UT 10/06 Dextrose/Water 250 ML IV 1032 Omeprazole 40 MG DAILY AC 10/07 0700 10/07 PO 0539 Ondansetron HCl 4 MG Q6P PRN 10/06 1800 10/07 IV 0539 Ondansetron HCl 4 MG ONCE ONE 10/06 1800 DC 10/06 IV 10/06 1801 1836 Prednisone 10 MG DAILY 10/07 1000 AC 10/07 PO 1125 Sertraline HCl 150 MG 0800 10/07 0800 AC 10/07 PO 1124 Sodium Chloride 1,000 ML ONCE ONE 10/06 1030 DC 10/06 IV 10/06 1529 1029 Results Last 48 Hrs of Labs/Mics: Laboratory Tests 10/07/16 0600: Troponin I Cancelled 10/07/16 0215: APTT 70 H 10/06/16 2302: Troponin I < 0.01 10/06/16 2300: Troponin I Cancelled 10/06/16 2200: Troponin I Cancelled 10/06/16 1647: Troponin I < 0.01, APTT 35 10/06/16 1600: Troponin I Cancelled 10/06/16 1020: Anion Gap 11, Estimated GFR > 60, BUN/Creatinine Ratio 23.3, Glucose 146 H, Calcium 9.5, Magnesium 1.8, Troponin I < 0.01, PT 9.9, INR 0.94, APTT 29, CBC w Diff NO MAN DIFF REQ, RBC 4.41, MCV 91.9, MCH 29.9, RDW 14.1, MPV 9.3, Gran % 69.2, Lymphocytes % 23.8, Monocytes % 4.2, Eosinophils % 2.4, Basophils % 0.4, Absolute Granulocytes 7.2 H, Absolute Lymphocytes 2.5, Absolute Monocytes 0.4, Absolute Eosinophils 0.3, Absolute Basophils 0, PUBS MCHC 32.5 L Assessment/Plan Assessment/Plan Assessment: 1. Chest pain, likely noncardiac. Ruled out for myocardial infarction 2. History of normal cardiac catheterization Plan: * Discharge to home. * Resume prior outpatient medications. * Follow up with Dr. Baker within one week. Continue telemetry? No
== END 2016-10-07 15:00 | disposition home health service (06) | DRG 313 ==
LOC: ERH 09:57 → ERHI 14:26 → ENRESERV 16:24 → ENTRNSPT 16:26 → 1NO 17:12 → CMPTRNSPT 17:33 → 1NO 10-07 10:33 → ENPENDDIS 10-07 13:56 → 1NO 10-07 15:00
PROVIDERS: Emergency Medicine; Surgery; ADMIT Internal Medicine Cardiovascular Disease
DX: R07.9 Chest pain, unspecified (principal); Z99.81 Dependence on supplemental oxygen; G43.909 Migraine, unspecified, not intractable, without status migrainosus; E11.9 Type 2 diabetes mellitus without complications; G62.9 Polyneuropathy, unspecified; G50.8 Other disorders of trigeminal nerve; I10 Essential (primary) hypertension; J44.9 Chronic obstructive pulmonary disease, unspecified; G47.33 Obstructive sleep apnea (adult) (pediatric); F31.9 Bipolar disorder, unspecified; F17.200 Nicotine dependence, unspecified, uncomplicated; Z85.43 Personal history of malignant neoplasm of ovary; K21.9 Gastro-esophageal reflux disease without esophagitis; E03.9 Hypothyroidism, unspecified; Z85.830 Personal history of malignant neoplasm of bone; Z79.84 Long term (current) use of oral hypoglycemic drugs
CPT/HCPCS: 1NP; 36415; 93005; 93010; 96365; 96366; 96375; 96376; 99291; J1644; J2270; J2405; J3490; J7060; J7512

== ENCOUNTER 2016-10-26 12:01 | Inpatient (IN) | payer OTHER, MEDICARE ==
[~2016-10-26] VITALS: Ht 157.5 cm; Wt 104.3 kg
[~2016-10-26 12:01] MED LIST changes: +MECLIZINE HCL12.5 M1 PO
--- NOTE | 2016-10-26 12:11 | NUR ---
PT SENT IN BY DR. NUR FOR INCREASED SOB. PT WITH HX COPD ON 02 2.5L NC AT BASELINE. 02 SAT 91% IN TRIAGE. PT COUGHING VERY LITTLE NO SPUTUM.
--- NOTE | 2016-10-26 12:38 | ED DYSPNEA/ASTHMA COMPLAINT ---
History of Present Illness General Chief Complaint: Dyspnea (COPD, CHF, Other) Stated Complaint: SOB Source: patient, family, old records Exam Limitations: no limitations Vital Signs & Intake/Output Vital Signs & Intake/Output Vital Signs Date Time Temp Pulse Resp B/P B/P Pulse O2 O2 Flow FiO2 Mean Ox Delivery Rate 10/28 1453 98.5 60 22 124/52 94 Nasal 3.0L Cannula 10/28 0917 92 Nasal 3.0L Cannula 10/28 0800 94 Nasal 4.0L Cannula 10/28 0655 97.9 57 20 120/60 94 Nasal Cannula 10/28 0126 62 93 10/28 0000 Nasal 4.0L Cannula 10/27 2241 97.4 72 20 150/68 95 Nasal Cannula ED Intake and Output 10/28 0000 10/27 1200 Intake Total 1200 240 Output Total 1050 600 Balance 150 -360 Intake, Oral 1200 240 Output, Urine 1050 600 Allergies Coded Allergies: codeine (Severe, ITCH 10/26/16) lemon (Severe, SOB 10/26/16) melatonin (Severe, HIVES/RASH 10/26/16) PER . -CG 07/16/16 propranolol (Severe, SHOCK PER PT 10/26/16) Uncoded Allergies: all ashley (Severe, SOB 07/13/16) Reconcile Medications Albuterol Sulfate (Proair Hfa) 8.5 GM HFA.AER.AD 1-2 PUF INH Q4-6 PRN PRN COPD (Reported) Aripiprazole (Abilify) 15 MG TABLET 15 MG PO 2200 clarify thoughts Aspirin (Ecotrin*) 81 MG TABLET. 1 TAB PO QAM HEART/BLOOD (Reported) Atorvastatin Calcium (Lipitor) 40 MG TABLET 1 TAB PO QPM CHOLESTEROL ( Reported) Azithromycin 500 MG TABLET 1 TAB PO DAILY copd Budesonide/Formoterol Fumarate (Symbicort 160-4.5 Mcg Inhaler) 10.2 GM HFA.AER.AD 2 PUF INH BID COPD (Reported) Carbamazepine 100 MG TAB.CHEW 200 MG PO 0800,1700,2000 mood stabilization Ergocalciferol (Vitamin D2) (Vitamin D2) 50,000 UNIT CAPSULE 1 CAP PO QTHURS SUPPLEMENT (Reported) Fenofibrate Nanocrystallized (Fenofibrate) 145 MG TABLET 1 TAB PO DAILY CHOLESTEROL/TRIGLYCERIDES (Reported) Fluticasone Propionate 16 GM SPRAY.SUSP 2 SPRAY NASB DAILY ALLERGIES ( Reported) Folic Acid 1 MG TABLET 1 TAB PO QAM SUPPLEMENT (Reported) Furosemide 20 MG TABLET 1.5 TAB PO DAILY FLUID (Reported) Gabapentin 300 MG CAPSULE 300 MG PO Q4H PRN trigeminal neuralgia/neuropathy Levothyroxine Sodium 50 MCG TABLET 1 TAB PO DAILY AC THYROID (Reported) Linaclotide (Linzess) 145 MCG CAPSULE 1 CAP PO QAM CIC (Reported) [place] Carbonate 300 MG CAPSULE 600 MG PO QPM mood stabilization [place] Carbonate 300 MG CAPSULE 300 MG PO 0800 mood stabilization Meclizine HCl 12.5 MG TABLET 1 TAB PO TID PRN VERTIGO (Reported) Metformin HCl 1,000 MG TABLET 1 TAB PO BID DIABETES (Reported) Midodrine HCl 2.5 MG TABLET 1 TAB PO BID HEART (Reported) Pantoprazole Sodium (Protonix) 40 MG TABLET.DR 1 TAB PO DAILY GERD (Reported) Prednisone 10 MG TABLET 1 TAB PO DAILY COPD (Reported) Sertraline HCl 50 MG TABLET 150 MG PO 0800 anti-depressant Triage Note: PT SENT IN BY DR. NUR FOR INCREASED SOB. PT WITH HX COPD ON 02 2.5L NC AT BASELINE. 02 SAT 91% IN TRIAGE. PT COUGHING VERY LITTLE NO SPUTUM. Triage Nurses Notes Reviewed? yes Onset: Abrupt Duration: day(s): (2) Timing: multiple episodes today Severity: moderate, severe Activities at Onset: none Associated Symptoms: cough, SHORTNESS OF BREATH HPI: This is a 51-year-old female with history of COPD on 2-1/2 L of home oxygen, history of sleep apnea on CPAP machine present from Dr. Wall's office for shortness of breath that began last night. Patient admits to central chest pain. She denies any fever or chills. She denies any productive cough. She states that she is a treatment at home without any relief. She was found to have respite her distress and Dr. Wall's office. She was 86-87% oxygen saturation on 3 L of oxygen and was sent down for further evaluation. Patient with recent admission to the hospital in September for similar issues. She is on Lasix for history of right-sided heart failure. Past History Travel History Traveled to [place] past 21 day No Medical History Any Pertinent Medical History? see below for history Neurological: dizziness, peripheral neuropathy, TIA, TRIGEMINAL NEURALGIA NEUROPATHY gait disturbance (uses a walker); ?neurological basis EENT: NONE Cardiovascular: angina (hx "atypical chest pain" ), hypertension, hyperlipidemia , HIGH TRYGLCERIDES recent cardiac catheterizations were negative for occlusive coronary artery disease PERICARDITIS Respiratory: asthma, bronchitis, obstructive sleep apnea, pneumonia, BIPAP Gastrointestinal: ACID REFLUX CONSTIPAT- CHRONIC/IDEOPA ABDOMINAL HERNIA Hepatic: CHOLELITHIASIS CHOLECYSTECTOMY Renal: NONE Musculoskeletal: R ANKLE FX AND REPAIR Psychiatric: anxiety, bipolar disease, depression, opioid dependence, substance abuse (possible benzo. and opioid) Endocrine: diabetes, HYPOTHYROIDISM Blood Disorders: NONE Cancer(s): ovarian cancer, SARCOMA L LEG CRYSTALIZER/Reproductive: OVARIAN CA TOTAL HYSTERECTOMY History of MRSA: No History of VRE: No History of CDIFF: No Surgical History Surgical History: hysterectomy, ABD HERNIA REPAIR X4 HYSTERECTOMY CHOLECYSTECTOMY R ANKLE SX POST FX SARCOMA REMOVAL L LEG, PERICARDIAL WINDOW Psychosocial History Who do you live with Patient/Self Services at Home Nursing What is your primary language Sierra Leonean Tobacco Use: Quit <30 days ago ETOH Use: denies use Illicit Drug Use: denies illicit drug use Family History Family History, If Any: MOTHER FATHER (CAD). MOTHER (CHF, COPD). Hx Contributory? No Review of Systems Review of Systems Constitutional: Denies: chills, fever. EENTM: Reports: no symptoms. Respiratory: Reports: cough, short of breath, sputum production. Cardiovascular: Reports: chest pain, palpitations. GI: Denies: abdominal pain. Genitourinary: Denies: discharge, dysuria. Musculoskeletal: Reports: no symptoms. Skin: Reports: no symptoms. Neurological/Psychological: Reports: anxiety. Hematologic/Endocrine: Denies: bruising, bleeding, polyuria, polydipsia. Immunologic/Allergic: Denies: splenectomy. All Other Systems: Reviewed and Negative Physical Exam Physical Exam General Appearance: well developed/nourished, alert, awake, anxious, moderate distress, severe distress, obese Head: atraumatic, normal appearance Eyes: Bilateral: normal appearance, PERRL, EOMI. Ears, Nose, Throat: normal pharynx, normal ENT inspection, hearing grossly normal Neck: normal inspection, supple, full range of motion Respiratory: decreased breath sounds, accessory muscle use, wheezing, respiratory distress Cardiovascular: tachycardia Peripheral Pulses: 2+ radial (R), 2+ radial (L) Gastrointestinal: soft, non-tender, OBESE Extremities: pedal edema (TRACE BILATERAL) Neurologic/Psych: no motor/sensory deficits, awake, alert, oriented x 3 Skin: intact, normal color, warm/dry Core Measures ACS in differential dx? 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 Severe Sepsis Present: No Septic Shock Present: No Progress Differential Diagnosis: CHF, COPD, pulmonary embolism, pneumonia Plan of Care: Orders Procedure Date/time Status PHARMACY COMMUNICATION FORM 10/28 913 Active THERAPIST ORDERS 10/28 652 Complete CBC WITHOUT DIFFERENTIAL 10/28 599 Complete MISTAKE 10/28 UNK Active MISTAKE 10/27 UNK Active Current Medications Sig/Ralph Start time Last Medication Dose Stop Time Status Admin Midodrine 5 MG BID 10/28 2199 AC (Pro-Amatine) Methylprednisolone 40 MG Q12H 10/28 190 AC (Solumedrol) Metoclopramide HCl 10 MG Q6P PRN 10/28 07 AC 10/28 (Reglan) 1619 Trimethobenzamide HCl 200 MG 4 TIMES/DAY PRN 10/28 714 AC 10/28 (Tigan) 1222 [place] Carbonate 300 MG 0800 10/27 0800 AC 10/28 0909 Sertraline HCl 150 MG 0800 10/27 0800 AC 10/28 (Zoloft) 0908 Levothyroxine Sodium 0.05 MG DAILY AC 10/27 07 AC 10/28 (Synthroid) 0654 Omeprazole 40 MG DAILY AC 10/27 0700 AC 10/28 (Prilosec) 0654 Albuterol Sulfate 3 ML Q4P PRN 10/26 221 AC 10/28 (Proventil) 1530 Aripiprazole 15 MG 10/26 AC 10/27 (Abilify) 2210 Atorvastatin Calcium 40 MG QPM 10/26 2200 AC 10/27 (Lipitor) 2210 Budesonide/ 2 PUF BID 10/26 220 AC 10/28 Formoterol Fumarate 0909 (Symbicort) [place] Carbonate 600 MG QPM 10/26 2200 AC 10/27 221 Azithromycin 500 MG DAILY@1700 10/26 1700 AC 10/28 (Zithromax) 1619 Sodium Chloride 250 ML (Normal Saline 0.9%) Carbamazepine 200 MG 0800,1700,10/26 1700 AC 10/28 (Tegretol) 1619 Insulin Aspart 0 TIDAC/HS 10/26 1700 AC 10/28 (NovoLOG) 1221 Gabapentin 300 MG Q4P PRN 10/26 1615 AC 10/27 (Neurontin) 2212 Meclizine HCl 12.5 MG TID PRN 10/26 1615 AC 10/28 (Antivert) 0656 Fluticasone 2 SPRAY DAILY 10/26 1601 AC 10/28 Propionate 0909 (Flonase) Folic Acid 1 MG QAM 10/26 1601 AC 10/28 (Folic Acid) 0908 Furosemide 30 MG DAILY 10/26 1601 AC 10/28 (Lasix) 0908 Acetaminophen 650 MG Q6P PRN 10/26 1600 AC (Tylenol) Albuterol Sulfate 2 PUF Q4-6 PRN PRN 10/26 1600 AC (Ventolin) Aspirin Buffered 81 MG QAM 10/26 1600 AC 10/28 (Ecotrin) 0908 Fenofibrate 145 MG DAILY 10/26 1600 AC 10/28 (Tricor) 0908 Ibuprofen 600 MG Q6P PRN 10/26 1600 AC (Motrin) Enoxaparin Sodium 40 MG DAILY 10/26 1556 AC 10/28 (Lovenox) 0908 Laboratory Tests 10/28/16 0733: CBC w Diff NO MAN DIFF REQ, RBC 4.20, MCV 92.3, MCH 30.1, RDW 13.3, MPV 9.1, Gran % 71.8, Lymphocytes % 20.4 L, Monocytes % 4.8, Eosinophils % 2.7, Basophils % 0.3, Absolute Granulocytes 8.1 H, Absolute Lymphocytes 2.3, Absolute Monocytes 0.5, Absolute Eosinophils 0.3, Absolute Basophils 0, PUBS MCHC 32.7 L Diagnostic Imaging: Viewed by Me: Radiology Read. Discussed w/RAD: Radiology Read. CXR Impression: PATIENT: DAIJA DONAHUE PRESENT AGE: 51 PATIENT ACCOUNT NO: [id number] : 65 LOCATION: [facility] ([place]) ORDERING PHYSICIAN: OREN BAILEY MD SERVICE DATE: 10/26/16-1243 EXAM TYPE: RAD - XRY -PORTABLE CHEST XRAY EXAMINATION: XR PORTABLE CHEST CLINICAL INFORMATION: Congestive heart failure. Dyspnea. Hypoxia COMPARISON: Frontal portable view TECHNIQUE: Portable frontal view of the chest was obtained. FINDINGS: Unchanged prominence of the cardiac silhouette. The central vessels are prominent and indistinct. There are some reticular perihilar opacities. The left base is difficult to assess due to under penetration. There is no dense focal pneumonia in the right lung or left upper lung. There is no definite pleural fluid or pneumothorax. IMPRESSION: Vascular prominence with minimal interstitial perihilar opacities could reflect some volume overload or increased pulmonary venous pressure. No acute focal pneumonia or alveolar edema. DICTATED BY: MARKY LAZARO MD DATE/TIME DICTATED:10/26/161301 [employer] MECHANIC:ROSALINDA DATE/TIME TRANSCRIBED:10/26/161301 CONFIDENTIAL, DO NOT COPY WITHOUT APPROPRIATE AUTHORIZATION. <Electronically signed in Other Vendor System> SIGNED BY: MARKY LAZARO MD 10/26/161306 Initial ED EKG: NSR, LPFB Rhythm Strip: normal sinus rhythm Departure Departure Time of Disposition: 1448 Disposition: STILL A PATIENT Condition: Stable Clinical Impression Primary Impression: COPD exacerbation Referrals: KENNY STEVENS D.O. (PCP/Family) Departure Forms: Customer Survey General Discharge Information Prescriptions: Current Visit Scripts Azithromycin 1 TAB PO DAILY #3 TAB Observation Note Spoke With: AINSLEY CABALLERO MD Physician Advisor Notified: VALDEZ ZUNIGA,KIRSTIN [facility] Place Patient In: Non-ED OBS Care Area Rationale for Observation: My rational for observation is as follows [IV STEROIDS, TRC/NEBS, DIURESIS, MONITOR I/O, SERIAL EKG, SERIAL TROPONIN, CARDIOLOGY EVALUATION]. Critical Care Note Critical Care Note Critical Care Time: non-applicable
--- NOTE | 2016-10-26 12:42 | NUR ---
DR. BAILEY AT BEDSIDE FOR EVAL. RESP CALLED FOR TREATMENT.
--- NOTE | 2016-10-26 13:00 | NUR ---
PT 85% ON 2.5 L OXYGEN JUST AFTER BEING ON RA. PT BASELINE ON 2L NC OXYGEN. INCREASED O2 TO 3.5L AND THEN TO 4L UNTIL RESP AT BEDSIDE FOR TREATMENT.
--- NOTE | 2016-10-26 13:07 | RADIOLOGY REPORT ---
EXAMINATION: XR PORTABLE CHEST CLINICAL INFORMATION: Congestive heart failure. Dyspnea. Hypoxia COMPARISON: Frontal portable view 10/06/16 TECHNIQUE: Portable frontal view of the chest was obtained. FINDINGS: Unchanged prominence of the cardiac silhouette. The central vessels are prominent and indistinct. There are some reticular perihilar opacities. The left base is difficult to assess due to under penetration. There is no dense focal pneumonia in the right lung or left upper lung. There is no definite pleural fluid or pneumothorax. IMPRESSION: Vascular prominence with minimal interstitial perihilar opacities could reflect some volume overload or increased pulmonary venous pressure. No acute focal pneumonia or alveolar edema.
[2016-10-26 13:08] LABS: ABSOLUTE BASOPHIL COUNT 0.1 /CUMM (0.0-0.2); ABSOLUTE EOSINOPHIL COUNT 0.2 /CUMM (0.0-0.7); ABSOLUTE GRANULOCYTE CT 12.4 /CUMM (1.4-6.5); ABSOLUTE LYMPH COUNT 1.1 /CUMM (1.2-3.4); ABSOLUTE MONOCYTE COUNT 0.6 /CUMM (0.10-0.60); BASOPHIL % 0.7 % (0.0-2.0); EOSINOPHIL % 1.2 % (0-5); GRANULOCYTE % 86.4 % (42.2-75.2); HEMATOCRIT 40.2 % (37-47); MEAN CORPUSCULAR HGB CONC 32.6 G/DL (33.0-37.0); MEAN CORPUSCULAR VOLUME 92.1 FL (81.0-99.0); MEAN PLATELET VOLUME 8.9 FL (7.4-10.4); PLATELET COUNT 301 /CUMM (130-400); RBC DISTRIBUTION WIDTH 13.2 % (11.5-14.5); RED BLOOD CELL CT 4.37 /CUMM (4.20-5.40); WHITE BLOOD CELL COUNT 14.4 /CUMM (4.8-10.8)
[2016-10-26 13:22] LABS: PT 11.3 SEC (9.4-12.5); PTT 30 SEC (25-37)
[2016-10-26] MEDS ORDERED: MIDODRINE HCL2.5 M1 PO (14:04)
--- NOTE | 2016-10-26 14:26 | NUR ---
RESP THERAPY AT BEDSIDE FOR TREATMENT.
--- NOTE | 2016-10-26 14:49 | History & Physical ---
REYES HORN 10/26/16 1448: General Information and HPI MD Statement: I have seen and personally examined DAIJA DONAHUE and documented this H&P. The patient is a 51 year old F who presented with a patient stated chief complaint of SOB for 2 days. Source of Information: patient History of Present Illness: Ms. Donahue is a 51 yo F with a PMH of COPD, HTN, HLD, s/p cath (04/2016), SHIRIN , Asthma, TIA, DM, Hypothyroidism, anxiety/bipolar disorder presented to the ED after Dr. Wall office visit. At the office she reported SOB and CP, she was advised to go to the ED. In the ED she stated that her SOB was present during exertion associated with a cough but denies sputum production, fever, chills but had a headache at the time. In the ED: Albuterol, Lasix, Solu-Medrol. ECG: SR, nonspecific changes, HR 78. WBC 14.4. UA neg. Initial TROP neg. 10/26/16-1243 CXR IMPRESSION: Vascular prominence with minimal interstitial perihilar opacities could reflect some volume overload or increased pulmonary venous pressure. No acute focal pneumonia or alveolar edema. Allergies/Medications Allergies: Coded Allergies: codeine (Severe, ITCH 10/26/16) lemon (Severe, SOB 10/26/16) melatonin (Severe, HIVES/RASH 10/26/16) PER . -CG 07/16/16 propranolol (Severe, SHOCK PER PT 10/26/16) Uncoded Allergies: all ashley (Severe, SOB 07/13/16) Home Med list Albuterol Sulfate (Proair Hfa) 8.5 GM HFA.AER.AD 1-2 PUF INH Q4-6 PRN PRN COPD (Reported) Aripiprazole (Abilify) 15 MG TABLET 15 MG PO 2200 clarify thoughts Aspirin (Ecotrin*) 81 MG TABLET. 1 TAB PO QAM HEART/BLOOD (Reported) Atorvastatin Calcium (Lipitor) 40 MG TABLET 1 TAB PO QPM CHOLESTEROL ( Reported) Azithromycin 500 MG TABLET 1 TAB PO DAILY copd Budesonide/Formoterol Fumarate (Symbicort 160-4.5 Mcg Inhaler) 10.2 GM HFA.AER.AD 2 PUF INH BID COPD (Reported) Carbamazepine 100 MG TAB.CHEW 200 MG PO 0800,1700,2000 mood stabilization Ergocalciferol (Vitamin D2) (Vitamin D2) 50,000 UNIT CAPSULE 1 CAP PO QTHURS SUPPLEMENT (Reported) Fenofibrate Nanocrystallized (Fenofibrate) 145 MG TABLET 1 TAB PO DAILY CHOLESTEROL/TRIGLYCERIDES (Reported) Fluticasone Propionate 16 GM SPRAY.SUSP 2 SPRAY NASB DAILY ALLERGIES ( Reported) Folic Acid 1 MG TABLET 1 TAB PO QAM SUPPLEMENT (Reported) Furosemide 20 MG TABLET 1.5 TAB PO DAILY FLUID (Reported) Gabapentin 300 MG CAPSULE 300 MG PO Q4H PRN trigeminal neuralgia/neuropathy Levothyroxine Sodium 50 MCG TABLET 1 TAB PO DAILY AC THYROID (Reported) Linaclotide (Linzess) 145 MCG CAPSULE 1 CAP PO QAM CIC (Reported) [place] Carbonate 300 MG CAPSULE 600 MG PO QPM mood stabilization [place] Carbonate 300 MG CAPSULE 300 MG PO 0800 mood stabilization Meclizine HCl 12.5 MG TABLET 1 TAB PO TID PRN VERTIGO (Reported) Metformin HCl 1,000 MG TABLET 1 TAB PO BID DIABETES (Reported) Midodrine HCl 2.5 MG TABLET 1 TAB PO BID HEART (Reported) Pantoprazole Sodium (Protonix) 40 MG TABLET.DR 1 TAB PO DAILY GERD (Reported) Prednisone 10 MG TABLET 1 TAB PO DAILY COPD (Reported) Sertraline HCl 50 MG TABLET 150 MG PO 0800 anti-depressant Past History Travel History Traveled to [place] past 21 day No Medical History Neurological: dizziness, peripheral neuropathy, TIA, TRIGEMINAL NEURALGIA NEUROPATHY gait disturbance (uses a walker); ?neurological basis EENT: NONE Cardiovascular: angina (hx "atypical chest pain" ), hypertension, hyperlipidemia , HIGH TRYGLCERIDES recent cardiac catheterizations were negative for occlusive coronary artery disease PERICARDITIS Respiratory: asthma, bronchitis, obstructive sleep apnea, pneumonia, BIPAP Gastrointestinal: ACID REFLUX CONSTIPAT- CHRONIC/IDEOPA ABDOMINAL HERNIA Hepatic: CHOLELITHIASIS CHOLECYSTECTOMY Renal: NONE Musculoskeletal: R ANKLE FX AND REPAIR Psychiatric: anxiety, bipolar disease, depression, opioid dependence, substance abuse (possible benzo. and opioid) Endocrine: diabetes, HYPOTHYROIDISM Blood Disorders: NONE Cancer(s): ovarian cancer, SARCOMA L LEG EVP [place]/Reproductive: OVARIAN CA TOTAL HYSTERECTOMY History of MRSA: No History of VRE: No History of CDIFF: No Surgical History Surgical History: hysterectomy, ABD HERNIA REPAIR X4 HYSTERECTOMY CHOLECYSTECTOMY R ANKLE SX POST FX SARCOMA REMOVAL L LEG PERICARDIAL WINDOW Past Family/Social History Family History Relations & Conditions if any MOTHER FATHER (CAD). MOTHER (CHF, COPD). Psychosocial History Services at Home: Nursing ETOH Use: denies use Illicit Drug Use: denies illicit drug use Functional Ability ADLs Independent: dressing, eating, toileting, bathing. Ambulation: independent IADLs Independent: shopping, housework, finances, food prep, telephone, transportation , medication admin. Review of Systems Review of Systems Constitutional: Reports: see HPI. Exam & Diagnostic Data Last 24 Hrs of Vital Signs/I&O Vital Signs Date Time Temp Pulse Resp B/P B/P Pulse O2 O2 Flow FiO2 Mean Ox Delivery Rate 10/26 1931 97 Nasal 4.0L Cannula 10/26 1732 99.0 86 22 160/66 95 Nasal 4.0L Cannula 10/26 1653 94 Nasal 3.5L Cannula 10/26 1625 74 20 162/74 94 Nasal Cannula 10/26 1433 98.6 82 22 160/74 91 Nasal 3.5L Cannula 10/26 1423 91 Nasal 3.0L Cannula 10/26 1332 97.0 94 22 127/72 94 Nasal 3.0L Cannula 10/26 1304 97 Nasal 3.5L Cannula 10/26 1257 93 Nasal 3.5L Cannula 10/26 1210 98.6 80 20 158/76 92 Nasal 2.5L Cannula Intake & Output 10/26 1600 10/26 0800 10/26 0000 Intake Total 0 Output Total 1500 Balance -1500 Intake, Oral 0 Output, Urine 1500 Patient 230 lb Weight Weight Estimated Measurement Method Physical Exam General Appearance Alert, Oriented X3, Cooperative, Mild Distress HEENT Atraumatic, PERRLA, EOMI Neck Supple, No JVD Cardiovascular Normal S1, Normal S2 Lungs Bilateral inspiratory and expiratory wheezing Abdomen Soft, No Tenderness Extremities No Cyanosis, No Edema Last 24 Hrs of Labs/Matthieu: Laboratory Tests 10/26/16 1935: Troponin I Pending 10/26/16 1543: Lactic Acid Cancelled 10/26/16 1330: Urine Opiates Screen < 100.00, Methadone Screen 49, Barbiturate Screen < 60, Ur Phencyclidine Scrn 8.30, Amphetamines Screen < 100, U Benzodiazepines Scrn > 800 H, Urine Cocaine Screen 57, Urine Cannabis Screen < 5.00, Urine Color YEL, Urine Clarity HAZY H, Urine pH 6.0, Ur Specific Jackson 1.015, Urine Protein NEG, Urine Ketones NEG, Urine Nitrite NEG, Urine Bilirubin NEG, Urine Urobilinogen 0.2, Ur Leukocyte Esterase SMALL H, Ur Microscopic SEDIMENT EXAMINED, Urine RBC RARE, Urine WBC 5-10 H, Ur Epithelial Cells FEW, Urine Bacteria FEW H, Urine Hemoglobin NEG, Urine Glucose NEG 10/26/16 1255: Anion Gap 12, Estimated GFR > 60, BUN/Creatinine Ratio 16.0, Glucose 192 H, Lactic Acid 1.7, Calcium 10.1, Total Bilirubin 0.5, AST 22, ALT 33, Alkaline Phosphatase 48, Troponin I < 0.01, Wds-S-Krqxlmcijiw Pept 129 H, Total Protein 7.2, Albumin 4.9, Globulin 2.3, Albumin/Globulin Ratio 2.1, PT 11.3, INR 1.08, APTT 30, CBC w Diff MAN DIFF ORDERED, RBC 4.37, MCV 92.1, MCH 30.0, RDW 13.2, MPV 8.9, Gran % 86.4 H, Lymphocytes % 7.4 L, Monocytes % 4.3, Eosinophils % 1.2, Basophils % 0.7, Absolute Granulocytes 12.4 H, Segmented Neutrophils 79 H , Band Neutrophils 8 H, Absolute Lymphocytes 1.1 L, Lymphocytes 6 L, Monocytes 6, Absolute Monocytes 0.6, Eosinophils 1, Absolute Eosinophils 0.2, Absolute Basophils 0.1, Platelet Estimate ADEQUATE, Normocytic RBCs VERIFIED, Normochromic RBCs VERIFIED, PUBS MCHC 32.6 L Microbiology 10/26 1300 BLOOD: Blood Culture - RECD 10/26 1255 BLOOD: Blood Culture - RECD Assessment/Plan Assessment: A: Ms. Donahue is a 51 yo F with a PMH of COPD, HTN, HLD, SHIRIN, Asthma, TIA, DM , Hypothyroidism presented to the ED after Dr. Wall office visit due to SOB-O2 sat 87 on 2L oxygen and CP with no associated symptoms. She reports she had the SOB since yesterday evening. She states that her SOB was present during exertion associated with a cough but denies sputum production, fever, chills. and had a headache at the time. She says she is compliant with her CPAP which she uses in the evening. P: 1. COPD exacerbation * Telemetry * IV Solumedrol 40mg Q8 * TRC nebs * AZ 500mg IV * CPAP QHS PRN * CBC to rule out infection 2. Chest pain * Telemetry * Serial TROP/ECG to rule out ACS * Asa 81mg PO * Urine toxicology 3. HTN/HLD * Start home meds: Atorvastatin 40mg PO, Lasix 30mg PO, fibrate 4. DM * Fingerstick glucose * Novolog SS 5. Hypothyroidism * Start home meds Synthroid 0.05mg PO 6. Anxiety/Bipolar * Start home meds 7. Vertigo * Start home meds Meclizine 8. Trigeminal neuralgia * Start home meds Gabapentin 9. Diet-regular DVT prophylaxis-SC Heparin Pain pathway Full Code As Ranked By This Provider Problem List: 1. CHEST PAIN 2. COPD exacerbation 3. Shortness of breath Core Measures/Miscellaneous Acute Coronary Syndrome ACS Diagnosis: No Cerebrovascular Accident CVA/TIA Diagnosis: No Congestive Heart Failure CHF Diagnosis: No VTE (View Protocol) VTE Risk Factors: Age > 40, Obesity No Mech VTE prophylaxis d/t: No contraindications No VTE Pharm Prophylaxis d/t: No contraindications VTE Diagnosis: No VTE Type: NONE VTE Confirmed by (Test): NONE Sepsis (View Protocol) Severe Sepsis Present: No Septic Shock Septic Shock Present: No Miscellaneous Documentation Attending Case Discussed With: LINCOLN VELAZQUEZ MD Primary Care Physician: KENNY STEVENS D.O. 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 Dr. Baker-Cardiology Dr. Wall-Pulmonology Level of Patient Care: Telemetry LINCOLN VELAZQUEZ 10/26/16 1449: Attending MD Review Statement Attending Statement Attending MD Statement: examined this patient, discuss w/resident/PA/MACHINE FEEDER RAW STOCK, agreed w/resident/PA/MACHINE FEEDER RAW STOCK, discussed with family, reviewed EMR data (avail), discussed with nursing, discussed with case mgmt, reviewed images, amended to note Attending Assessment/Plan: 51 o/f with PMH of COPD on home oxygen 2l comes with chest pain and dyspnea directly sent from Dr. wall office. Labs reveal leukocytosis otherwsie unremarakble. Chest xray vascualr prominence increased pulmonary venous pressure. ASSESSMENT 1. Acute on chronic respriatroy failure 2. COPD excaebration on home oxygen 3. atypical chest pain in intermediate to high risk 4. hypertension 5. hyperlipidemia 6. SHIRIN on cpap 7. GERD 8. Opiod dependence/substance abuse 9. Diabetes 10. hypothyroidism PLAN observation telemetry monitoring serial cardiac enzymes and serial ekg. recent cath negative i/v steroids, i/v abx, oxygen supplementation. TRC, cpap at night. RISS and titrate insulin as needed resume home meds gi/dvt prophyalxis full code. ESTEVAN LYON 10/26/16 1617: Resident Review Statement Resident Statement: examined this patient, discussed with unpaid intern, agreed with unpaid intern, discussed with family, reviewed EMR data (avail), discussed with nursing , discussed with case mgmt, reviewed images, amended to note Other Findings: This is a 51-year-old female with past medical history significant for Vertigo, dizziness, peripheral neuropathy, transient ischemic attack, trigeminal neuralgia, anxiety, bipolar disorder, depression, substance abuse disorder, COPD on home oxygen 2 L at nighttime, atypical chest pain, recent catheterization in April normal, hyperlipidemia, hypertriglyceridemia, obstructive sleep apnea on CPAP, diabetes mellitus, hypothyroid, GERD, presented to ER from Dr. Wall substance abuse clinician office with shortness of breath on rest and low oxygen saturations. Patient was at Dr. Wall's office this afternoon for shortness of breath on rest. Off-line patient has COPD and uses 2 L oxygen at nighttime. Patient reports ongoing shortness of breath for 2 days associated with oxygen requirement throughout the day. Minimal relief with inhalers. Reports cough associated with sputum production. Denies any fever, chills. Reports minimal chest pain. Vitals on admission afebrile, heart rate 80, respiratory 20, blood pressure 158/ 70, saturating at 90 on 3 L oxygen. Pertinent labs on admission-leukocytosis 15,000, H&H 13, 40. BEP was normal. Urine analysis normal. BNP 129. First set of troponin and EKG normal. EKG showed 78, sinus rhythm, left posterior fascicular branch block. Chest x-ray showed Vascular prominence with minimal interstitial perihilar opacities could reflect some volume overload or increased pulmonary venous pressure. No acute focal pneumonia or alveolar edema. Assessment and plan 1. Acute COPD exacerbation Patient presented with severe shortness of breath on rest. Minimal relief with inhalers and nebulizer treatment. Desaturated to 85 on 2 L oxygen. Associated with minimal cough and sputum production. She is afebrile with elevated leukocyte count on admission. Chest x-ray was showing pulmonary opacities with fluid overload. * Placed to telemetry floor for further observation and management * Monitor vitals closely every shift * Provide supplemental oxygen and maintained saturations greater than 90% * Total respiratory care * DUONEBS * Blood cultures follow-up * Sputum cultures * IV steroids methylprednisone 40 every 8 hours * IV antibiotic sskowotlplby-[id number] effect * Dr. Wall was notified 2. Acute on chronic respiratory failure Patient uses 2 L oxygen at home during nighttime for COPD. However she desaturated to 85 on 3 L oxygen. * Monitor vitals every shift * Maintain oxygen saturation greater than 90 * Provide supplemental oxygen as needed * Total respiratory care 3. Acute coronary syndrome Patient reported mild chest pain at substance abuse clinician office. Off note patient had atypical chest pain in the past she underwent catheterization in April which was normal. Off note she is a diabetic patient. Will rule out acute coronary syndrome * Serial troponins * Serial EKGs * Continue aspirin 81 mg 4. Diabetes mellitus Patient usually takes metformin thousand twice a day at home Will hold metformin in the hospital Finger checks Insulin sliding scale 5. Hypothyroidism Continue home medication levothyroxine 50 g daily 6. GERD Continue omeprazole 40 daily 7. Obstructive sleep apnea On CPAP at home Will continue CPAP 8. Hypertriglyceridemia Continue home medication Fenofibrate. 9. Hyperlipidemia Continue Lipitor 40 10. Bilateral lower extremity swelling Continue home medications Lasix 30 mg daily. 11. Anxiety/bipolar/depression Continue home medication lithium, Abilify, carbamazepine, sertraline 12. Trigeminal neuralgia Continue home medications gabapentin 13. vertigo Continue meclizine 12.5 mg when necessary tid Full code DVT prophylaxis subcutaneous Lovenox Regular diet Pain pathway
--- NOTE | 2016-10-26 14:59 | NUR ---
HOUSE STAFF AT BEDSIDE FOR EVAL.
--- NOTE | 2016-10-26 16:18 | NUR ---
PT HAS BED ASSIGNMENT 180-2. RN NOTIFIED.
[2016-10-26] MEDS ORDERED: AZITHROMYCIN500 M3 PO (16:50)
--- NOTE | 2016-10-26 16:52 | Patient Discharge Instructions ---
Discharge Instructions General Discharge Information You were seen/treated for: Acute on chronic respiratory failure Acute COPD exacerbation You had these procedures: None Watch for these problems: Worsening shortness of breath, fever, chills Cough with sputum production Chest pain Special Instructions: Follow-up with the primary care physician in one week after discharge. Follow-up with Dr. Wall transport aide in 1-2 weeks after discharge Follow-up with your veterans service representative in 1-2 weeks after discharge. Complete prednisone taper. Complete antibiotic course Diet Continue normal diet: Yes Activity Full Activity/No Limits: Yes Acute Coronary Syndrome Inclusion Criteria At DC or during hospital stay patient has or had the following: ACS DIAGNOSIS No Discharge Core Measures Meds if any: Prescribed or Continued at Discharge Meds if any: NOT Prescribed or Continued at Discharge Congestive Heart Failure Inclusion Criteria At DC or during hospital stay patient has or had the following: CHF DIAGNOSIS No Discharge Core Measures Meds if any: Prescribed or Continued at Discharge Meds if any: NOT Prescribed or Continued at Discharge Cerebrovascular accident Inclusion Criteria At DC or during hospital stay patient has or had the following: CVA/TIA Diagnosis No Discharge Core Measures Meds if any: Prescribed or Continued at Discharge Meds if any: NOT Prescribed or Continued at Discharge Venous thromboembolism Inclusion Criteria VTE Diagnosis No VTE Type NONE VTE Confirmed by (Test) NONE Discharge Core Measures - Per Current guidelines, there needs to be overlap - treatment for the first 5 days of Warfarin therapy. - If discharged on Warfarin prior to 5 days of - overlap therapy, the patient will need to be - assessed for post discharge needs including - *Post discharge parental anticoagulation - *Warfarin and/or parental anticoagulation education - *Follow up date to check INR post discharge At least 5 days overlap therapy as Inpatient No Meds if any: Prescribed or Continued at Discharge Note: Overlap Therapy is Warfarin and Anticoagulant Meds if any: NOT Prescribed or Continued at Discharge
--- NOTE | 2016-10-26 17:02 | NUR ---
REPORT CALLED TO FLOOR RN AND TRANSPORT BOOKED
--- NOTE | 2016-10-26 17:21 | PN- Student ---
Subjective Subjective: C.C.: worsening shortness of breath HPI: Patient started to have increasing shortness of breath yesterday that has been persistent since walking up 9 flights of stairs to her home. Dyspnea worse with any movement and is better when laying still. She had an appointment with Dr. Vaca today in which he advised her to go to the ED for symptoms of SOB and chest pain and low oxygen saturation (87%). Patient states that she "passed out " today before the appointment for 10 minutes, didn't hit her head, and was found on the floor by her aide but states that she has been diagnosed with POTS and is on Midodrine which was started 2 weeks ago and has decreased the number of syncopal episodes from 6x/day to 2x/day. In ED, she was treated with O2 2.5- 3.5 L NC, albuterol, solumedrol, and lasix for swelling in legs. Other than the swelling decreasing, patient states that she hasn't had much relief with therapy thusfar. At home, she takes albuterol TID daily and uses oxygen only at night but had to use oxygen yesterday during the day. Patient states that she has been hospitalized 2-3 times for COPD exacerbation. Denies any sick contacts. Patient reports mild cough and headache. Denies sputum production, chest pain, fever, nausea, vomiting, abdominal pain. PMHx: Illnesses/conditions: HLD, angina, SHIRIN, DM type 2 (dx 02/20/16), GERD, postural tachycardia syndrome (POTS), hypothyroidism, peripheral neuropathy (R foot), anxiety, bipolar disorder Meds: albuterol q4-6 hrs PRN, aripiprazole 15 mg PO daily at night, aspirin 81 mg PO daily in morning, atorvastatin 40 mg PO daily, Symbicort 2 puffs BID, carbamazepine 200 mg TID PO, Vitamin D2 50,000 units PO weekly, Fenofibrate 145 mg PO daily, Fluticasone propionate 2 sprays 16 gm daily, folic acid 1 mg PO every morning, furosemide 1.5 tab 20 mg PO daily, gabapentin 300 mg q4 hours PRN , levothyroxine sodium 50 mcg PO daily, linaclotide 145 mcg PO every morning, lithium carbonate 300 mg PO every morning and 600 mg PO every evening, meclizine 12.5 mg PO TID PRN, metformin 1000 mg PO BID, midodrine 2.5 mg PO BID, pantoprazole sodium 40 mg PO daily, prednisone 10 mg PO daily, sertaline 50 mg tab 150 mg PO every morning Allergies: adhesive from nicotine patch (rash), codeine, melatonin, propranolol, ashley Past surgeries/hospitalizations: COPD exacerbations, cardiac cath (negative, Apr), hysterectomy, abdominal hernia repair, cholecystectomy Providers: PCP, 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 She is "handicapped" and doesn't work. Tobacco: 33 pack year hx (started age 18, stopped this Saturday) Denies ETOH, illicit drug use ROS: see HPI Objective Objective: Physical Exam: General: obese, calm, cooperative, in no acute distress Skin: no rashes, pallor, or cyanosis HEENT: PERRL, EOMI, dry mucus membranes Cardiac: regular rate and rhythm, no murmurs, gallops or rubs Pulm: wheezing bilaterally Abdomen: soft, nontender, normoactive bowel sounds Extremities: no clubbing or edema Neuro: alert and oriented x3, sensory deficit in right foot CXR (10/26/16): Vascular prominence with minimal interstitial perihilar opacities could reflect some volume overload or increased pulmonary venous pressure. No acute focal pneumonia or alveolar edema. Vital Signs Date Time Temp Pulse Resp B/P B/P Pulse O2 O2 Flow FiO2 Mean Ox Delivery Rate 10/26 1732 99.0 86 22 160/66 95 Nasal 4.0L Cannula 10/26 1653 94 Nasal 3.5L Cannula 10/26 1625 74 20 162/74 94 Nasal Cannula 10/26 1433 98.6 82 22 160/74 91 Nasal 3.5L Cannula 10/26 1423 91 Nasal 3.0L Cannula 10/26 1332 97.0 94 22 127/72 94 Nasal 3.0L Cannula 10/26 1304 97 Nasal 3.5L Cannula 10/26 1257 93 Nasal 3.5L Cannula 10/26 1210 98.6 80 20 158/76 92 Nasal 2.5L Cannula Intake & Output 10/26 1600 10/26 0800 10/26 0000 Intake Total 0 Output Total 1500 Balance -1500 Intake, Oral 0 Output, Urine 1500 Patient 230 lb Weight Weight Estimated Measurement Method Results Results: Laboratory Tests 10/26/16 1543: Lactic Acid Cancelled 10/26/16 1330: Urine Opiates Screen Pending, Methadone Screen Pending, Barbiturate Screen Pending, Ur Phencyclidine Scrn Pending, Amphetamines Screen Pending, U Benzodiazepines Scrn Pending, Urine Cocaine Screen Pending, Urine Cannabis Screen Pending, Urine Color YEL, Urine Clarity HAZY H, Urine pH 6.0, Ur Specific [place] 1.015, Urine Protein NEG, Urine Ketones NEG, Urine Nitrite NEG, Urine Bilirubin NEG, Urine Urobilinogen 0.2, Ur Leukocyte Esterase SMALL H, Ur Microscopic SEDIMENT EXAMINED, Urine RBC RARE, Urine WBC 5-10 H, Ur Epithelial Cells FEW, Urine Bacteria FEW H, Urine Hemoglobin NEG, Urine Glucose NEG 10/26/16 1255: Anion Gap 12, Estimated GFR > 60, BUN/Creatinine Ratio 16.0, Glucose 192 H, Lactic Acid 1.7, Calcium 10.1, Total Bilirubin 0.5, AST 22, ALT 33, Alkaline Phosphatase 48, Troponin I < 0.01, Pfs-E-Xiqsuynagns Pept 129 H, Total Protein 7.2, Albumin 4.9, Globulin 2.3, Albumin/Globulin Ratio 2.1, PT 11.3, INR 1.08, APTT 30, CBC w Diff MAN DIFF ORDERED, RBC 4.37, MCV 92.1, MCH 30.0, RDW 13.2, MPV 8.9, Gran % 86.4 H, Lymphocytes % 7.4 L, Monocytes % 4.3, Eosinophils % 1.2, Basophils % 0.7, Absolute Granulocytes 12.4 H, Segmented Neutrophils 79 H , Band Neutrophils 8 H, Absolute Lymphocytes 1.1 L, Lymphocytes 6 L, Monocytes 6, Absolute Monocytes 0.6, Eosinophils 1, Absolute Eosinophils 0.2, Absolute Basophils 0.1, Platelet Estimate ADEQUATE, Normocytic RBCs VERIFIED, Normochromic RBCs VERIFIED, PUBS MCHC 32.6 L Microbiology 10/26 1300 BLOOD: Blood Culture - RECD 10/26 1255 BLOOD: Blood Culture - RECD Assessment/Plan Assessment: Assessment and plan: 51 yo female with PMHx of COPD on 2.5 L of oxygen and 33 pack-yr hx, HLD, angina with negative cardiac cath Temo '17, SHIRIN, DM type 2, POTS, hypothyroidism, peripheral neuropathy, anxiety, and bipolar disorder presented today following an outpatient appointment with Dr. Vaca for worsening shortness of breath, chest pain, and a mild cough. Solumedrol, nebulizer treatment and lasix were given in ED. Upon admission, patient was afebrile, HR of 80, hypertensive (158/ 76) and 92% on 2.5L NC. Labs upon admission significant for leukocytosis (14,400 ), pro-BNP of 129 and lactic acid of 1.7. 1/3 troponins were negative. U/A positive for leukocyte esterase, WBC, and bacteria. CXR is negative for pneumonia but showed minimal interstitial perihilar opacities suggesting volume overload or increasing pulmonary venous pressure. EKG showed sinus rhythm, rate of 78 with left posterior fascicular branch block. Blood cultures pending. 1. Dyspnea likely due to COPD exacerbation * Admit to telemetry for 24 hour observation * TRC, nebulizer treatment PRN * Taper oxygen from nasal cannula to saturation of 90% * Consider D-dimer level if dyspnea persists * IV azithromycin 500 mg daily and IV solumedrol 40 mg q 8 hours * Blood and sputum cultures * Monitor vitals * Repeat CBC, BEP 2. Chest pain * Pain has subsided * Repeat EKG * Follow serial troponins to r/o ACS 3. Chronic conditions * COPD: albuterol PRN, Symbicort 2 puff BID * HLD: Lipitor 40 mg PO daily, Fenofibrate 145 mg PO daily * angina: aspirin 81 mg PO daily, furosemide 1.5 tab 20 mg PO daily * SHIRIN: CPAP at night * DM type 2: d/c metformin, finger stick and sliding scale for insulin * POTS: midodrine 2.5 mg PO BID, check creatinine and monitor BP and HR for hypertension and bradycardia * GERD: pantoprazole sodium 40 mg PO daily * hypothyroidism: levothyroxine sodium 50 mcg PO daily * peripheral neuropathy: gabapentin 300 mg q4 hours PRN * psychiatric disorders: lithium carbonate 300 mg PO qAM and 600 mg PO qPM, aripiprazole 15 mg PO qPM, carbamazepine 200 mg PO TID, sertraline 150 mg PO qPM * allergies: fluticasone propionate * vertigo: meclizine 12.5 mg PO TID PRN Full code DVT prophylaxis: Lovenox
[2016-10-26 17:32] VITALS: BP 160/66
[2016-10-26 22:21] VITALS: BP 140/60
[2016-10-27 07:45] VITALS: BP 128/68
[2016-10-27 08:44] LABS: ABSOLUTE BASOPHIL COUNT 0 /CUMM (0.0-0.2); ABSOLUTE EOSINOPHIL COUNT 0.2 /CUMM (0.0-0.7); ABSOLUTE GRANULOCYTE CT 7.8 /CUMM (1.4-6.5); ABSOLUTE LYMPH COUNT 1.9 /CUMM (1.2-3.4); ABSOLUTE MONOCYTE COUNT 0.6 /CUMM (0.10-0.60); BASOPHIL % 0.3 % (0.0-2.0); EOSINOPHIL % 1.9 % (0-5); GRANULOCYTE % 74.3 % (42.2-75.2); HEMATOCRIT 38.2 % (37-47); MEAN CORPUSCULAR HGB 30.1 PG (27.0-31.0); MEAN CORPUSCULAR HGB CONC 32.5 G/DL (33.0-37.0); MEAN CORPUSCULAR VOLUME 92.7 FL (81.0-99.0); MEAN PLATELET VOLUME 8.9 FL (7.4-10.4); PLATELET COUNT 293 /CUMM (130-400); RBC DISTRIBUTION WIDTH 13.1 % (11.5-14.5); RED BLOOD CELL CT 4.12 /CUMM (4.20-5.40); WHITE BLOOD CELL COUNT 10.5 /CUMM (4.8-10.8)
--- NOTE | 2016-10-27 10:27 | Event Note ---
Event Note Event Note: Rapid response was called at around 9:15 AM. Patient had an unwitnessed fall while trying to get out of her bed into the chair. As per the patient she lost consciousness for a brief few seconds post a fall. Denied any chest pain, palpitations, nausea, vomiting, abdominal pain, urinary or bowel incontinence. She did complain of lightheadedness and dizziness. Patient was stabilized on a backboard. Apparently the patient appeared to have hit the left side of her head on the floor. Vitals ; Temperature 97.6, blood pressure 158/62, saturating 94% on 4 L oxygen, Blood sugar 244. On examination appeared to be in mild distress, with diffuse wheezing and rhonchi on chest examination. Stat troponin, EKG, head CT, and cervical spine CT was ordered. She was started on Solu-Medrol 40 every 8 hours since her shortness of breath was likely secondary to COPD exacerbation. She was already ruled out for ACS with negative troponins and EKG. A new Echo was ordered. Post the CT head and neck patient was stabilized back and a backboard was removed once the CT result showed no fracture/dislocation. Vitals remained stable after the procedure. EKG showed questionable junctional rhythm (however it appeared to be an artifact). Repeat EKG will be done in an hour. Cardiology consult was placed for syncope. Given the given's current clinical condition, she will require a full workup for syncope/ echocardiogram, cardiology evaluation and continuous telemonitoring. Therefore it is reasonable to convert her to a full admission from observation status. Update: Patient has POTS( postural hypotension syndrome). As per cardiology recommendation the dose of midodrine has been increased to 2.5 ,3 times a day since the blood patient's blood pressure was found to have dropped from 160 to 128 this morning.
--- NOTE | 2016-10-27 10:35 | CT SCAN REPORT ---
EXAMINATION: CT HEAD W/O IV CONTRAST CT CERVICAL SPINE W/O IV CONTRAST CLINICAL INFORMATION: Patient fell and struck head. Question presence of stroke and evaluate for fracture. COMPARISON: Head CT from 02/16/2016. Cervical spine CT from 06/03/2014. TECHNIQUE: Head - Contiguous axial imaging of the head was performed from the skull base to the vertex without the administration of intravenous contrast, and axial images are reconstructed at 0.625 mm , 2.5 mm and 5 mm slice thickness. Cervical spine - A volumetric, helical CT acquisition of the cervical spine was obtained without contrast; in addition to the standard set of axial images, multiplanar reformatted images were provided in the coronal and sagittal imaging planes. DLP: 1013 mGy-cm (total) FINDINGS: HEAD: No evidence of acute intracranial hemorrhage, major vascular territory infarction, focal mass effect or midline shift. Love to white matter differentiation is well preserved. The ventricles have normal size and configuration. The sulci and basilar cisterns are unremarkable. There are no extra-axial fluid collections. The calvarium is intact and the visualized paranasal sinuses, mastoid air cells and middle ear cavities are clear. The temporomandibular joints are unremarkable. The visualized orbits and globes are intact. CERVICAL SPINE: The craniocervical junction is intact. The occipital condyles, atlas, axis and atlantoaxial articulation are intact. The vertebral body heights and alignment are maintained. No acute fractures in the anterior or posterior elements. There is no prevertebral soft tissue swelling. There is multilevel facet arthropathy. Disc-vertebral degenerative change is most pronounced (moderate in degree) at C5-C6. Posterior disc osteophyte complex at C5-C6 produces mild central canal stenosis. The uncovertebral joint hypertrophy produces mild right foraminal stenosis. At C6-C7, there is mild disc space narrowing, disc bulge and posterior disc osteophyte complex without significant narrowing of the central spinal canal. Thyroid gland is normal. No evidence of cervical lymphadenopathy. Within the visualized lung apices, there are bilateral patchy alveolar opacities. IMPRESSION: 1. No acute intracranial pathology. 2. No acute fracture or malalignment in the degenerated cervical spine. No acute findings in the cervical spine compared to 06/03/2014. 3. Patchy alveolar opacities in the visualized lung apices are new compared to the chest CT from 10/06/2016 and require further clinical correlation. This could be a manifestation of multilobar pneumonia and/or cardiogenic pulmonary edema. The critical test result was discussed with Dr. Arizmendi at 10:28 am and it was ascertained that the content of the findings was understood at the time of the direct communication.
--- NOTE | 2016-10-27 10:55 | PN- Housestaff ---
[facility] 10[facility]16 1055: Subjective Follow-up For: COPD exacerbation Syncope Chest pain Complaints: FALL AND SYNCOPE THIS MORNING, NAUSEA Subjective: Patient had an episode of syncope this morning while trying to go from the bed to the chair. She denies chest pain, palpitations, urinary or bowel symptoms, seizure-like activity. CT head/CT spine was negative for any fracture and dislocation. EKG, troponin, echocardiogram was ordered and a cardiology consult was placed for a workup of syncope. Telemetry did not any arrhythmias. Review of Systems Constitutional: Reports: malaise, weakness. EENTM: Reports: no symptoms. Cardiovascular: Reports: syncope. Respiratory: Reports: short of breath. Gastrointestinal: Reports: nausea. Genitourinary: Reports: no symptoms. Musculoskeletal: Reports: no symptoms. Skin: Reports: no symptoms. Objective Last 24 Hrs of Vital Signs/I&O Vital Signs Date Time Temp Pulse Resp B/P B/P Pulse O2 O2 Flow FiO2 Mean Ox Delivery Rate 10/27 0901 93 10/27 0901 93 Nasal 4.0L Cannula 10/27 0745 98.8 66 20 128/68 95 Nasal 4.0L Cannula 10/27 0049 67 92 07/08 0000 94 BIPAP 4.0L 10/26 2221 98.4 66 20 140/60 95 Nasal 4.0L Cannula 10/26 2204 92 Nasal 4.0L Cannula 10/26 2200 89 93 10/26 1943 Nasal 4.0L Cannula 10/26 1931 97 Nasal 4.0L Cannula 10/26 1732 99.0 86 22 160/66 95 Nasal 4.0L Cannula 10/26 1653 94 Nasal 3.5L Cannula 10/26 1625 74 20 162/74 94 Nasal Cannula 10/26 1433 98.6 82 22 160/74 91 Nasal 3.5L Cannula 10/26 1423 91 Nasal 3.0L Cannula 10/26 1332 97.0 94 22 127/72 94 Nasal 3.0L Cannula 10/26 1304 97 Nasal 3.5L Cannula 10/26 1257 93 Nasal 3.5L Cannula 10/26 1210 98.6 80 20 158/76 92 Nasal 2.5L Cannula Intake & Output /08 1600 07/08 0800 07/08 0000 Intake Total 240 470 Output Total 600 2000 Balance -360 -1530 Intake, IV 20 Intake, Oral 240 450 Output, Urine 600 1999 Patient 104.326 kg Weight Physical Exam General Appearance: Alert, Oriented X3, Mild Distress, morbidly obese Skin: No Rashes, No Breakdown Skin Temp/Moisture Exam: Warm/Dry Sepsis Skin Exam (color): Normal for Ethnicity HEENT: Atraumatic, PERRLA, EOMI Neck: Supple Lymphatic: Cervical nl Cardiovascular: Regular Rate, Normal S1, Normal S2 Lungs: bilateral wheezing and ronchi Abdomen: Normal Bowel Sounds, Soft, No Tenderness Neurological: Normal Speech, Normal Tone, Sensation Intact, Cranial Nerves 3-12 NL Extremities: No Clubbing, No Cyanosis, No Edema, trace pedal edema Last 24 Hrs of Lab/Matthieu Results Last 24 Hrs of Labs/Mics: Laboratory Tests 10/27/16 1000: Troponin I < 0.01 10/27/16 0708: Anion Gap 15, Estimated GFR > 60, BUN/Creatinine Ratio 24.3, CBC w Diff NO MAN DIFF REQ, RBC 4.12 L, MCV 92.7, MCH 30.1, RDW 13.1, MPV 8.9, Gran % 74.3, Lymphocytes % 18.0 L, Monocytes % 5.5, Eosinophils % 1.9, Basophils % 0.3, Absolute Granulocytes 7.8 H, Absolute Lymphocytes 1.9, Absolute Monocytes 0.6, Absolute Eosinophils 0.2, Absolute Basophils 0, PUBS MCHC 32.5 L 10/27/16 0100: Troponin I < 0.01 10/26/16 1935: Troponin I < 0.01 10/26/16 1543: Lactic Acid Cancelled 10/26/16 1330: Urine Opiates Screen < 100.00, Methadone Screen 49, Barbiturate Screen < 60, Ur Phencyclidine Scrn 8.30, Amphetamines Screen < 100, U Benzodiazepines Scrn > 800 H, Urine Cocaine Screen 57, Urine Cannabis Screen < 5.00, Urine Color YEL, Urine Clarity HAZY H, Urine pH 6.0, Ur Specific [place] 1.015, Urine Protein NEG, Urine Ketones NEG, Urine Nitrite NEG, Urine Bilirubin NEG, Urine Urobilinogen 0.2, Ur Leukocyte Esterase SMALL H, Ur Microscopic SEDIMENT EXAMINED, Urine RBC RARE, Urine WBC 5-10 H, Ur Epithelial Cells FEW, Urine Bacteria FEW H, Urine Hemoglobin NEG, Urine Glucose NEG 07/07/17 1255: Anion Gap 12, Estimated GFR > 60, BUN/Creatinine Ratio 16.0, Glucose 192 H, Lactic Acid 1.7, Calcium 10.1, Total Bilirubin 0.5, AST 22, ALT 33, Alkaline Phosphatase 48, Troponin I < 0.01, Git-B-Pjbsqoywjtz Pept 129 H, Total Protein 7.2, Albumin 4.9, Globulin 2.3, Albumin/Globulin Ratio 2.1, PT 11.3, INR 1.08, APTT 30, CBC w Diff MAN DIFF ORDERED, RBC 4.37, MCV 92.1, MCH 30.0, RDW 13.2, MPV 8.9, Gran % 86.4 H, Lymphocytes % 7.4 L, Monocytes % 4.3, Eosinophils % 1.2, Basophils % 0.7, Absolute Granulocytes 12.4 H, Segmented Neutrophils 79 H , Band Neutrophils 8 H, Absolute Lymphocytes 1.1 L, Lymphocytes 6 L, Monocytes 6, Absolute Monocytes 0.6, Eosinophils 1, Absolute Eosinophils 0.2, Absolute Basophils 0.1, Platelet Estimate ADEQUATE, Normocytic RBCs VERIFIED, Normochromic RBCs VERIFIED, PUBS MCHC 32.6 L Microbiology 10/26 1300 BLOOD: Blood Culture - RECD 10/26 1255 BLOOD: Blood Culture - RECD Assessment/Plan Assessment: Patient has history of post syndrome This is a 51-year-old female with past medical history significant for Vertigo, dizziness, peripheral neuropathy, transient ischemic attack, trigeminal neuralgia, anxiety, bipolar disorder, depression, substance abuse disorder, COPD on home oxygen 2 L at nighttime, atypical chest pain, recent catheterization in April normal, hyperlipidemia, hypertriglyceridemia, obstructive sleep apnea on CPAP, diabetes mellitus, hypothyroid, GERD, presented to ER from Dr. Wall marine engineering consultant office with shortness of breath on rest and low oxygen saturations. EKG showed 78, sinus rhythm, left posterior fascicular branch block. Chest x-ray showed Vascular prominence with minimal interstitial perihilar opacities could reflect some volume overload or increased pulmonary venous pressure. No acute focal pneumonia or alveolar edema. Assessment and plan #1 Acute on chronic respiratory failure likely secondary to COPD exacerbation: Patient continues to have bilateral wheezing and rhonchi * IV Solu-Medrol 40 every 8 * Provide supplemental oxygen and maintained saturations greater than 90% * Total respiratory care * MIS * Blood and sputum cultures negative so far * Continue IV azithromycin day 2 today * Pulmonology consult with Dr. Wall #2 Syncope: Patient had an episode of syncope this morning at around 9:15 and an unwitnessed fall to the ground. * Continue telemetry monitoring for arrhythmias * Patient has history of orthostatic hypotension and is on midodrine 2.5 twice a day. Patient has POTS (postural hypotension syndrome). As per cardiology recommendation the dose of midodrine has been increased to 2.5 ,3 times a day since the blood patient's blood pressure was found to have dropped from 160 to 128 this morning. * Troponin and EKGs have been normal * CT scan of the head and cervical spine showed no fracture/dislocation * Echocardiogram ordered/pending. * Cardiology consult with Dr. Landon #3 Acute coronary syndrome * Chest pain resolved. We'll troponin and EKG has been negative. Continue aspirin and statin. #4 diabetes mellitus * Continue 3 times a day Accu-Cheks, holding oral OHA * Insulin sliding scale #5 hypothyroidism * Continue home medication levothyroxine 50 g daily number #6 GERD * Continue omeprazole 40 daily #7. Obstructive sleep apnea * On CPAP at home * Will continue CPAP #8. Hypertriglyceridemia Continue home medication Fenofibrate. #9. Hyperlipidemia Continue Lipitor 40 #10. Bilateral lower extremity swelling Continue home medications Lasix 30 mg daily. #11. Anxiety/bipolar/depression Continue home medication lithium, Abilify, carbamazepine, sertraline #12. Trigeminal neuralgia Continue home medications gabapentin #13. vertigo Continue meclizine 12.5 mg when necessary tid Full code DVT prophylaxis subcutaneous Lovenox Regular diet Pain pathway Problem List: 1. Fall 2. COPD exacerbation 3. Syncope 4. CHEST PAIN Pain Ratin Pain Location: na Pain Goal: Remain pain free Pain Plan: gabapentin Tomorrow's Labs & Rationales: cbc LINCOLN Ndiaye 10/27/16 1058: Attending MD Review Statement Attending Statement Attending MD Statement: examined this patient, discuss w/resident/PA/COLOR RECEIVER, agreed w/resident/PA/COLOR RECEIVER, discussed with family, reviewed EMR data (avail), discussed with nursing, discussed with case mgmt, reviewed images, amended to note Attending Assessment/Plan: 1. Acute on chronic respriatroy failure 2. COPD excaebration on home oxygen 3. atypical chest pain in intermediate to high risk 4. hypertension 5. hyperlipidemia 6. SHIRIN on cpap 7. GERD 8. Opiod dependence/substance abuse 9. Diabetes 10. hypothyroidism 11. Syncope vasovagal likely PLAN conitnue telemetry monitoring, admit to medical services. serial cardiac enzymes and serial ekg negative. recent cath negative i/v steroids, i/v abx, oxygen supplementation. TRC, cpap at night. cardiology consult for syncope. echo, ct head no bleed/acute issues, carotid USG RISS and titrate insulin as needed resume home meds gi/dvt prophyalxis full code.
--- NOTE | 2016-10-27 13:37 | Cons- Cardiology ---
General Information and HPI Consulting Request Date of Consult: 10/27/16 Requested By: CAROLINE ZUNIGA,LINCOLN Reason for Consult: Syncope Source of Information: patient, old records History of Present Illness: The patient is a 51-year-old female who is known to me from a prior hospital admission. Her usual film masker is Dr. Baker in [place]. The patient has a history of COPD, hypertension, hyperlipidemia, prior cardiac catheterization in April 2016, sleep apnea, asthma, and prior syncope. The patient was sent to the emergency room by Dr. Wall after recent office visit with increased shortness of breath, chest discomfort, etc. She also was noted to have a cough at that time. No other systemic symptoms are noted. Patient, earlier today, when getting out of bed, was noted to have a syncopal episode. As previously noted, the patient has had a Linq monitor implanted. According to the patient there have been no documented arrhythmias. She has been given the diagnosis of POTS syndrome. She was recently started on midodrine 2.5 mg twice a day by Dr. Baker. Allergies/Medications Allergies: Coded Allergies: codeine (Severe, ITCH 10/26/16) lemon (Severe, SOB 10/26/16) melatonin (Severe, HIVES/RASH 10/26/16) PER . -CG 07/16/16 propranolol (Severe, SHOCK PER PT 10/26/16) Uncoded Allergies: all ashley (Severe, SOB 07/13/16) Home Med List: Albuterol Sulfate (Proair Hfa) 8.5 GM HFA.AER.AD 1-2 PUF INH Q4-6 PRN PRN COPD (Reported) Aripiprazole (Abilify) 15 MG TABLET 15 MG PO 2200 clarify thoughts Aspirin (Ecotrin*) 81 MG TABLET.DR 1 TAB PO QAM HEART/BLOOD (Reported) Atorvastatin Calcium (Lipitor) 40 MG TABLET 1 TAB PO QPM CHOLESTEROL ( Reported) Azithromycin 500 MG TABLET 1 TAB PO DAILY copd Budesonide/Formoterol Fumarate (Symbicort 160-4.5 Mcg Inhaler) 10.2 GM HFA.AER.AD 2 PUF INH BID COPD (Reported) Carbamazepine 100 MG TAB.CHEW 200 MG PO 0800,1700,2000 mood stabilization Ergocalciferol (Vitamin D2) (Vitamin D2) 50,000 UNIT CAPSULE 1 CAP PO QTHURS SUPPLEMENT (Reported) Fenofibrate Nanocrystallized (Fenofibrate) 145 MG TABLET 1 TAB PO DAILY CHOLESTEROL/TRIGLYCERIDES (Reported) Fluticasone Propionate 16 GM SPRAY.SUSP 2 SPRAY NASB DAILY ALLERGIES ( Reported) Folic Acid 1 MG TABLET 1 TAB PO QAM SUPPLEMENT (Reported) Furosemide 20 MG TABLET 1.5 TAB PO DAILY FLUID (Reported) Gabapentin 300 MG CAPSULE 300 MG PO Q4H PRN trigeminal neuralgia/neuropathy Levothyroxine Sodium 50 MCG TABLET 1 TAB PO DAILY AC THYROID (Reported) Linaclotide (Linzess) 145 MCG CAPSULE 1 CAP PO QAM CIC (Reported) [place] Carbonate 300 MG CAPSULE 600 MG PO QPM mood stabilization [place] Carbonate 300 MG CAPSULE 300 MG PO 0800 mood stabilization Meclizine HCl 12.5 MG TABLET 1 TAB PO TID PRN VERTIGO (Reported) Metformin HCl 1,000 MG TABLET 1 TAB PO BID DIABETES (Reported) Midodrine HCl 2.5 MG TABLET 1 TAB PO BID HEART (Reported) Pantoprazole Sodium (Protonix) 40 MG TABLET.DR 1 TAB PO DAILY GERD (Reported) Prednisone 10 MG TABLET 1 TAB PO DAILY COPD (Reported) Sertraline HCl 50 MG TABLET 150 MG PO 0800 anti-depressant Current Medications: Current Medications Sig/Ralph Start time Last Medication Dose Route Stop Time Status Admin Acetaminophen 650 MG Q6P PRN 10/26 1600 AC PO Albuterol Sulfate 3 ML Q4P PRN 10/26 2215 AC 10/27 INH 0847 Albuterol Sulfate 3 ML ONCE ONE 10/26 1645 DC 10/26 INH 10/26 1646 1652 Albuterol Sulfate 2 PUF Q4-6 PRN PRN 10/26 1600 AC INH Albuterol Sulfate 3 ML ONCE ONE 10/26 1430 DC 10/26 INH 10/26 1431 1423 Aripiprazole 15 MG 2200 10/260 AC 10/26 PO 2141 Aspirin Buffered 81 MG QAM 10/26 1600 AC 10/27 PO 0827 Atorvastatin Calcium 40 MG QPM 10/26 2200 AC 10/26 PO 2142 Azithromycin 500 MG DAILY@1700 10/26 1700 AC 10/26 Sodium Chloride 250 ML IV 1652 Budesonide/ 2 PUF BID 10/26 2199 AC 10/27 Formoterol Fumarate INH 08 Carbamazepine 200 MG 0800,1700,10/26 1700 10/27 PO 0827 Enoxaparin Sodium 0 .STK-MED ONE 10/26 1653 DC SC Enoxaparin Sodium 40 MG DAILY 10/26 1556 AC 10/27 SC 0827 Fenofibrate 145 MG DAILY 10/26 1600 AC 10/27 PO 0827 Fluticasone 2 SPRAY DAILY 10/26 1601 AC 10/27 Propionate TRUMAN 0826 Folic Acid 1 MG QAM 10/26 1601 AC 10/27 PO 0827 Furosemide 30 MG ONCE ONE 10/26 1845 DC 10/26 PO 10/26 1846 1854 Furosemide 30 MG DAILY 10/26 1601 AC 10/27 PO 0827 Gabapentin 300 MG Q4P PRN 10/26 1615 AC PO Ibuprofen 600 MG Q6P PRN 10/26 1600 AC PO Insulin Aspart 0 TIDAC/HS 10/26 1700 AC 10/27 SC 1241 Ipratropium [place] 2.5 ML ONCE ONE 10/26 1645 DC 10/26 INH 10/26 1646 1651 Levothyroxine Sodium 0.05 MG DAILY AC 10/27 07 AC 10/27 PO 0614 [place] Carbonate 300 MG 0800 10/27 0800 AC 10/27 PO 0828 [place] Carbonate 600 MG QPM 10/26 2200 AC 10/26 PO 2141 Meclizine HCl 12.5 MG TID PRN 10/26 1615 PO Methylprednisolone 40 MG Q8 10/27 0956 GA 10/27 IV 0958 Methylprednisolone 40 MG ONCE ONE 10/26 1845 DC 10/26 IV 10/26 1846 1854 Methylprednisolone 40 MG Q8 10/26 1610 10/27 IV 0614 Midodrine 2.5 MG TID 10/27 1600 AC PO Midodrine 2.5 MG BID 10/26 2200 GA 10/27 PO 0827 Omeprazole 40 MG DAILY AC 10/27 07 AC 10/27 PO 0614 Oxycodone/ 2 TAB Q6P PRN 10/26 1600 DC Acetaminophen PO Sertraline HCl 150 MG 0810/27 0800 AC 10/27 PO 0827 Past History Travel History Traveled to [place] past 21 day No Medical History Neurological: dizziness, peripheral neuropathy, TIA, TRIGEMINAL NEURALGIA NEUROPATHY gait disturbance (uses a walker); ?neurological basis EENT: NONE Cardiovascular: angina (hx "atypical chest pain" ), hypertension, hyperlipidemia , HIGH TRYGLCERIDES recent cardiac catheterizations were negative for occlusive coronary artery disease PERICARDITIS Respiratory: asthma, bronchitis, obstructive sleep apnea, pneumonia, BIPAP Gastrointestinal: ACID REFLUX CONSTIPAT- CHRONIC/IDEOPA ABDOMINAL HERNIA Hepatic: CHOLELITHIASIS CHOLECYSTECTOMY Renal: NONE Musculoskeletal: R ANKLE FX AND REPAIR Psychiatric: anxiety, bipolar disease, depression, opioid dependence, substance abuse (possible benzo. 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 MOTHER (CHF, COPD). Psychosocial History Services at Home: Nursing Smoking Status: Former Smoker ETOH Use: denies use Illicit Drug Use: denies illicit drug use Functional Ability ADLs Independent: dressing, eating, toileting, bathing. Ambulation: independent IADLs Independent: shopping, housework, finances, food prep, telephone, transportation , medication admin. ECHO Results (as available) Report: Normal left ventricular l size and contractility with moderate left ventricular hypertrophy. No significant valvular abnormalities. Exam & Diagnostic Data Vital Signs and I&O Vital Signs Date Time Temp Pulse Resp B/P B/P Pulse O2 O2 Flow FiO2 Mean Ox Delivery Rate 10/27 0901 93 10/27 0901 93 Nasal 4.0L Cannula 10/27 0745 98.8 66 20 128/68 95 Nasal 4.0L Cannula 10/27 0049 67 92 07/08 0000 94 BIPAP 4.0L 10/26 2221 98.4 66 20 140/60 95 Nasal 4.0L Cannula 10/26 2204 92 Nasal 4.0L Cannula 10/26 2200 89 93 10/26 1943 Nasal 4.0L Cannula 10/26 1931 97 Nasal 4.0L Cannula 10/26 1732 99.0 86 22 160/66 95 Nasal 4.0L Cannula 10/26 1653 94 Nasal 3.5L Cannula 10/26 1625 74 20 162/74 94 Nasal Cannula 10/26 1433 98.6 82 22 160/74 91 Nasal 3.5L Cannula 10/26 1423 91 Nasal 3.0L Cannula Intake & Output 07/10/27 0810/27 0000 10/26 1600 10/26 0800 10/26 0000 Intake Total 240 470 0 Output Total 600 2000 1500 Balance -360 -1530 -1500 Intake, IV 20 Intake, Oral 240 450 0 Output, Urine 600 2000 1500 Patient 230 lb 230 lb Weight Weight Estimated Measurement Method Physical Exam: General Appearance Alert, Oriented X3, Cooperative, Mild Distress HEENT Atraumatic, PERRLA, EOMI Neck Supple, No JVD Cardiovascular Normal S1, Normal S2 Lungs Bilateral inspiratory and expiratory wheezing Abdomen Soft, No Tenderness Extremities No Cyanosis, No Edema Labs/Matthieu Results: Laboratory Tests 10/27 10/27 10/27 10/26 1000 0708 0100 1935 Chemistry Sodium (137 - 145 mmol/L) 143 Potassium (3.5 - 5.1 mmol/L) 4.0 Chloride (98 - 107 mmol/L) 95 L Carbon Dioxide (22 - 30 mmol/L) 32 H Anion Gap (5 - 16) 15 BUN (7 - 17 mg/dL) 17 Creatinine (0.5 - 1.0 mg/dL) 0.7 Estimated GFR (>60 ml/min) > 60 BUN/Creatinine Ratio (7 - 25 %) 24.3 Troponin I (< 0.11 ng/ml) < 0.01 < 0.01 < 0.01 Hematology CBC w Diff NO MAN DIFF REQ WBC (4.8 - 10.8 /CUMM) 10.5 RBC (4.20 - 5.40 /CUMM) 4.12 L Hgb (12.0 - 16.0 G/DL) 12.4 Hct (37 - 47 %) 38.2 MCV (81.0 - 99.0 FL) 92.7 MCH (27.0 - 31.0 PG) 30.1 RDW (11.5 - 14.5 %) 13.1 Plt Count (130 - 400 /CUMM) 293 MPV (7.4 - 10.4 FL) 8.9 Gran % (42.2 - 75.2 %) 74.3 Lymphocytes % (20.5 - 51.1 %) 18.0 L Monocytes % (1.7 - 9.3 %) 5.5 Eosinophils % (0 - 5 %) 1.9 Basophils % (0.0 - 2.0 %) 0.3 Absolute Granulocytes (1.4 - 6.5 /CUMM) 7.8 H Absolute Lymphocytes (1.2 - 3.4 /CUMM) 1.9 Absolute Monocytes (0.10 - 0.60 /CUMM) 0.6 Absolute Eosinophils (0.0 - 0.7 /CUMM) 0.2 Absolute Basophils (0.0 - 0.2 /CUMM) 0 PUBS MCHC (33.0 - 37.0 G/DL) 32.5 L 10/26 10/26 1543 1330 Chemistry Lactic Acid Cancelled Toxicology Urine Opiates Screen (>2000 NG/ML) < 100.00 Methadone Screen (>300 NG/ML) 49 Barbiturate Screen (>200 NG/ML) < 60 Ur Phencyclidine Scrn (>25 NG/ML) 8.30 Amphetamines Screen (>1000 NG/ML) < 100 U Benzodiazepines Scrn (>200 NG/ML) > 800 H Urine Cocaine Screen (>300 NG/ML) 57 Urine Cannabis Screen (>50 NG/ML) < 5.00 Urines Urine Color (YEL,AMB,STR) YEL Urine Clarity (CLEAR) HAZY H Urine pH (5.0 - 8.0) 6.0 Ur Specific [place] (1.001 - 1.035) 1.015 Urine Protein (NEG,<30 MG/DL) NEG Urine Ketones (NEG) NEG Urine Nitrite (NEG) NEG Urine Bilirubin (NEG) NEG Urine Urobilinogen (0.1 - 1.0 EU/dl) 0.2 Ur Leukocyte Esterase (NEG) SMALL H Ur Microscopic SEDIMENT EXAMINED Urine RBC (0 - 5 /HPF) RARE Urine WBC (0 - 2 /HPF) 5-10 H Ur Epithelial Cells (NONE,FEW) FEW Urine Bacteria (NEG/NONE) FEW H Urine Hemoglobin (NEG) NEG Urine Glucose (N MG/DL) NEG 10/26 1255 Chemistry Sodium (137 - 145 mmol/L) 141 Potassium (3.5 - 5.1 mmol/L) 4.5 Chloride (98 - 107 mmol/L) 100 Carbon Dioxide (22 - 30 mmol/L) 30 Anion Gap (5 - 16) 12 BUN (7 - 17 mg/dL) 8 Creatinine (0.5 - 1.0 mg/dL) 0.5 Estimated GFR (>60 ml/min) > 60 BUN/Creatinine Ratio (7 - 25 %) 16.0 Glucose (65 - 99 mg/dL) 192 H Lactic Acid (0.7 - 2.1 mmol/L) 1.7 Calcium (8.4 - 10.2 mg/dL) 10.1 Total Bilirubin (0.2 - 1.3 mg/dL) 0.5 AST (14 - 36 U/L) 22 ALT (9 - 52 U/L) 33 Alkaline Phosphatase (<127 U/L) 48 Troponin I (< 0.11 ng/ml) < 0.01 Ita-Z-Iyydiffjqja Pept (<125 pg/mL) 129 H Total Protein (6.3 - 8.2 g/dL) 7.2 Albumin (3.5 - 5.0 g/dL) 4.9 Globulin (1.9 - 4.2 gm/dL) 2.3 Albumin/Globulin Ratio (1.1 - 2.2 %) 2.1 Coagulation PT (9.4 - 12.5 SEC) 11.3 INR (0.90 - 1.19) 1.08 APTT (25 - 37 SEC) 30 Hematology CBC w Diff MAN DIFF ORDERED WBC (4.8 - 10.8 /CUMM) 14.4 H RBC (4.20 - 5.40 /CUMM) 4.37 Hgb (12.0 - 16.0 G/DL) 13.1 Hct (37 - 47 %) 40.2 MCV (81.0 - 99.0 FL) 92.1 MCH (27.0 - 31.0 PG) 30.0 RDW (11.5 - 14.5 %) 13.2 Plt Count (130 - 400 /CUMM) 301 MPV (7.4 - 10.4 FL) 8.9 Gran % (42.2 - 75.2 %) 86.4 H Lymphocytes % (20.5 - 51.1 %) 7.4 L Monocytes % (1.7 - 9.3 %) 4.3 Eosinophils % (0 - 5 %) 1.2 Basophils % (0.0 - 2.0 %) 0.7 Absolute Granulocytes (1.4 - 6.5 /CUMM) 12.4 H Segmented Neutrophils (42.2 - 75.2 %) 79 H Band Neutrophils (0.0 - 5.0 %) 8 H Absolute Lymphocytes (1.2 - 3.4 /CUMM) 1.1 L Lymphocytes (20.5 - 51.1 %) 6 L Monocytes (1.7 - 9.3 %) 6 Absolute Monocytes (0.10 - 0.60 /CUMM) 0.6 Eosinophils (0 - 5.0 %) 1 Absolute Eosinophils (0.0 - 0.7 /CUMM) 0.2 Absolute Basophils (0.0 - 0.2 /CUMM) 0.1 Platelet Estimate (ADEQUATE) ADEQUATE Normocytic RBCs VERIFIED Normochromic RBCs VERIFIED PUBS MCHC (33.0 - 37.0 G/DL) 32.6 L Diagnostic Data EKG Results Unchanged CXR Results IMPRESSION: Vascular prominence with minimal interstitial perihilar opacities could reflect some volume overload or increased pulmonary venous pressure. No acute focal pneumonia or alveolar edema. Assessment/Plan Assessment/Plan Assessment: 1. Syncope/reported pots syndrome-the patient's symptoms are most consistent with blood pressure related syncopal episode. No evidence of arrhythmias on the monitor. 2. COPD/sleep apnea 3. History of hypertension 4. History of hyperlipidemia Recommendations: -Keep the patient on the minister of religion for another 24 hours -Continue as per the pulmonary service -Increase midodrine to 2.5 mg 3 times a day -Monitor orthostatic heart rate and blood pressure every shift 3 -Further changes tomorrow. Consult Acknowledgment - Thank you for your consult request.
[2016-10-27 14:57] VITALS: BP 150/64
[2016-10-27 22:41] VITALS: BP 150/68
[2016-10-28 06:55] VITALS: BP 120/60
[2016-10-28 08:27] LABS: ABSOLUTE BASOPHIL COUNT 0 /CUMM (0.0-0.2); ABSOLUTE EOSINOPHIL COUNT 0.3 /CUMM (0.0-0.7); ABSOLUTE GRANULOCYTE CT 8.1 /CUMM (1.4-6.5); ABSOLUTE LYMPH COUNT 2.3 /CUMM (1.2-3.4); ABSOLUTE MONOCYTE COUNT 0.5 /CUMM (0.10-0.60); BASOPHIL % 0.3 % (0.0-2.0); EOSINOPHIL % 2.7 % (0-5); GRANULOCYTE % 71.8 % (42.2-75.2); HEMATOCRIT 38.8 % (37-47); MEAN CORPUSCULAR HGB 30.1 PG (27.0-31.0); MEAN CORPUSCULAR HGB CONC 32.7 G/DL (33.0-37.0); MEAN CORPUSCULAR VOLUME 92.3 FL (81.0-99.0); MEAN PLATELET VOLUME 9.1 FL (7.4-10.4); PLATELET COUNT 295 /CUMM (130-400); RBC DISTRIBUTION WIDTH 13.3 % (11.5-14.5); WHITE BLOOD CELL COUNT 11.3 /CUMM (4.8-10.8)
--- NOTE | 2016-10-28 08:49 | PN- Cardiology ---
Subjective Subjective: The patient is feeling about the same today. She currently had another episode of positional syncope earlier today. According to the patient, she was actually on midodrine 3 times a day at home already. No other new issues. No arrhythmias on the monitor. Objective Vital Signs and I&Os Vital Signs Date Time Temp Pulse Resp B/P B/P Pulse O2 O2 Flow FiO2 Mean Ox Delivery Rate 10/28 0655 97.9 57 20 120/60 94 Nasal Cannula 10/28 0126 62 93 10/28 0000 Nasal 4.0L Cannula 10/27 2241 97.4 72 20 150/68 95 Nasal Cannula 10/27 1600 95 Nasal 4.0L Cannula 10/27 1513 95 Nasal 4.0L Cannula 10/27 1457 98.0 74 20 150/64 94 Nasal 4.0L Cannula 10/27 0901 93 10/27 0901 93 Nasal 4.0L Cannula Intake & Output 10/28 1600 10/28 0800 / 0000 10/27 1600 10/27 0800 10/27 0000 Intake Total 400 600 600 240 470 Output Total 9249 769 8721 Balance 400 600 -450 -360 -1530 Intake, IV 20 Intake, Oral 400 600 600 240 450 Output, Urine 8085 237 5963 Patient 230 lb Weight Physical Exam: General Appearance Alert, Oriented X3, Cooperative, Mild Distress HEENT Atraumatic, PERRLA, EOMI Neck Supple, No JVD Cardiovascular Normal S1, Normal S2 Lungs Bilateral inspiratory and expiratory wheezing Abdomen Soft, No Tenderness Extremities No Cyanosis, No Edema Current Medications: Current Medications Sig/Ralph Start time Last Medication Dose Route Stop Time Status Admin Acetaminophen 650 MG Q6P PRN 10/26 1600 AC PO Albuterol Sulfate 3 ML Q4P PRN 10/26 221 AC 10/27 INH 203 Albuterol Sulfate 2 PUF Q4-6 PRN PRN 10/26 1600 AC INH Aripiprazole 15 MG 10/26 AC 10/27 PO 221 Aspirin Buffered 81 MG QAM 10/26 1600 AC 10/27 PO 08 Atorvastatin Calcium 40 MG QPM 10/26 220 AC 10/27 PO 221 Azithromycin 500 MG DAILY@1700 10/26 1700 AC 10/27 Sodium Chloride 250 ML IV 1650 Budesonide/ 2 PUF BID 10/26 2199 AC 10/27 Formoterol Fumarate INH 2209 Carbamazepine 200 MG 0800,1700,10/26 1700 AC 10/27 PO 2210 Enoxaparin Sodium 40 MG DAILY 10/26 1556 AC 10/27 SC 0827 Fenofibrate 145 MG DAILY 10/26 1600 AC 10/27 PO 0827 Fluticasone 2 SPRAY DAILY 10/26 1601 AC 10/27 Propionate TRUMAN 0826 Folic Acid 1 MG QAM 10/26 1601 AC 10/27 PO 0827 Furosemide 30 MG DAILY 10/26 1601 AC 10/27 PO 0827 Gabapentin 300 MG Q4P PRN 10/26 1615 AC 10/27 PO 2212 Ibuprofen 600 MG Q6P PRN 10/26 1600 AC PO Insulin Aspart 0 TIDAC/HS 10/26 1700 AC 10/27 SC 1702 Levothyroxine Sodium 0.05 MG DAILY AC 10/27 07 AC 10/28 PO 0654 [place] Carbonate 300 MG 0800 10/27 0800 AC 10/27 PO 0828 [place] Carbonate 600 MG QPM 10/26 2200 AC 10/27 PO 2211 Meclizine HCl 12.5 MG TID PRN 10/26 1615 AC 10/28 PO 0656 Methylprednisolone 40 MG Q8 10/27 0956 DC 10/27 IV 0958 Methylprednisolone 40 MG Q8 10/26 1610 AC 10/28 IV 0653 Metoclopramide HCl 10 MG Q6P PRN 10/28 0715 AC PO Midodrine 2.5 MG TID 10/27 1600 AC 10/27 PO 2210 Midodrine 2.5 MG BID 10/26 2200 DC 10/27 PO 0827 Omeprazole 40 MG DAILY AC 10/27 07 AC 10/28 PO 0654 Oxycodone/ 2 TAB Q6P PRN 10/26 1600 DC Acetaminophen PO Sertraline HCl 150 MG 0800 10/27 0800 AC 10/27 PO 0827 Trimethobenzamide HCl 200 MG 4 TIMES/DAY PRN 10/28 0715 AC IM Results Last 48 Hrs of Labs/Mics: Laboratory Tests 10/28/16 0733: CBC w Diff Pending, WBC Pending, RBC Pending, Hgb Pending, Hct Pending, MCV Pending, MCH Pending, RDW Pending, Plt Count Pending, MPV Pending, PUBS MCHC Pending 10/27/16 1000: Troponin I < 0.01 10/27/16 0708: Anion Gap 15, Estimated GFR > 60, BUN/Creatinine Ratio 24.3, CBC w Diff NO MAN DIFF REQ, RBC 4.12 L, MCV 92.7, MCH 30.1, RDW 13.1, MPV 8.9, Gran % 74.3, Lymphocytes % 18.0 L, Monocytes % 5.5, Eosinophils % 1.9, Basophils % 0.3, Absolute Granulocytes 7.8 H, Absolute Lymphocytes 1.9, Absolute Monocytes 0.6, Absolute Eosinophils 0.2, Absolute Basophils 0, PUBS MCHC 32.5 L 10/27/16 0100: Troponin I < 0.01 10/26/16 1935: Troponin I < 0.01 10/26/16 1543: Lactic Acid Cancelled 10/26/16 1330: Urine Opiates Screen < 100.00, Methadone Screen 49, Barbiturate Screen < 60, Ur Phencyclidine Scrn 8.30, Amphetamines Screen < 100, U Benzodiazepines Scrn > 800 H, Urine Cocaine Screen 57, Urine Cannabis Screen < 5.00, Urine Color YEL, Urine Clarity HAZY H, Urine pH 6.0, Ur Specific [place] 1.015, Urine Protein NEG, Urine Ketones NEG, Urine Nitrite NEG, Urine Bilirubin NEG, Urine Urobilinogen 0.2, Ur Leukocyte Esterase SMALL H, Ur Microscopic SEDIMENT EXAMINED, Urine RBC RARE, Urine WBC 5-10 H, Ur Epithelial Cells FEW, Urine Bacteria FEW H, Urine Hemoglobin NEG, Urine Glucose NEG 10/26/16 1255: Anion Gap 12, Estimated GFR > 60, BUN/Creatinine Ratio 16.0, Glucose 192 H, Lactic Acid 1.7, Calcium 10.1, Total Bilirubin 0.5, AST 22, ALT 33, Alkaline Phosphatase 48, Troponin I < 0.01, [id number] Pept 129 H, Total Protein 7.2, Albumin 4.9, Globulin 2.3, Albumin/Globulin Ratio 2.1, PT 11.3, INR 1.08, APTT 30, CBC w Diff MAN DIFF ORDERED, RBC 4.37, MCV 92.1, MCH 30.0, RDW 13.2, MPV 8.9, Gran % 86.4 H, Lymphocytes % 7.4 L, Monocytes % 4.3, Eosinophils % 1.2, Basophils % 0.7, Absolute Granulocytes 12.4 H, Segmented Neutrophils 79 H , Band Neutrophils 8 H, Absolute Lymphocytes 1.1 L, Lymphocytes 6 L, Monocytes 6, Absolute Monocytes 0.6, Eosinophils 1, Absolute Eosinophils 0.2, Absolute Basophils 0.1, Platelet Estimate ADEQUATE, Normocytic RBCs VERIFIED, Normochromic RBCs VERIFIED, PUBS MCHC 32.6 L Assessment/Plan Assessment/Plan Assessment: 1. Syncope/reported pots syndrome-the patient's symptoms are most consistent with blood pressure related syncopal episode. No evidence of arrhythmias on the monitor. 2. COPD/sleep apnea 3. History of hypertension 4. History of hyperlipidemia Recommendations: -Echo cardiac exam pending -Increase midodrine to 5 mg twice a day -Continue to check orthostatic heart rate and blood pressure every shift -Further plans in 24 hours. Continue telemetry? Yes
--- NOTE | 2016-10-28 09:09 | PN- Student ---
Subjective Subjective: Patient was seen and examined this morning. No events reported overnight. Patient had a syncopal episode yesterday in which she fell and had hit her had and had an episode this morning but had fallen back into bed. Patient states this is her normal and has been living with these syncopal episodes. She is still having difficulty breathing with any and all movement and has a persistent non-productive cough. She states that she has been feeling nauseous today. Reports lightheadedness, dizziness, nausea, cough, dyspnea. Denies chest pain, abdominal pain, fever, vomiting, difficulty urinating, headache. Current Medications Sig/Ralph Start time Last Medication Dose Route Stop Time Status Admin Acetaminophen 650 MG Q6P PRN 10/26 1600 AC PO Albuterol Sulfate 3 ML Q4P PRN 10/26 2215 AC 10/28 INH 0917 Albuterol Sulfate 2 PUF Q4-6 PRN PRN 10/26 1600 AC INH Aripiprazole 15 MG 2200 10/26 2200 AC 10/27 PO 2210 Aspirin Buffered 81 MG QAM 10/26 1600 AC 10/28 PO 0908 Atorvastatin Calcium 40 MG QPM 10/26 2200 AC 10/27 PO 2210 Azithromycin 500 MG DAILY@1700 10/26 1700 AC 10/27 Sodium Chloride 250 ML IV 1650 Budesonide/ 2 PUF BID 10/26 2200 AC 10/28 Formoterol Fumarate INH 0909 Carbamazepine 200 MG 0800,1700,2000 10/26 1700 AC 10/28 PO 0909 Enoxaparin Sodium 40 MG DAILY 10/26 1556 AC 10/28 SC 0908 Fenofibrate 145 MG DAILY 10/26 1600 AC 10/28 PO 0908 Fluticasone 2 SPRAY DAILY 10/26 1601 AC 10/28 Propionate TRUMAN 0909 Folic Acid 1 MG QAM 10/26 1601 AC 10/28 PO 0908 Furosemide 30 MG DAILY 10/26 1601 AC 10/28 PO 0908 Gabapentin 300 MG Q4P PRN 10/26 1615 AC 10/27 PO 2212 Ibuprofen 600 MG Q6P PRN 10/26 1600 AC PO Insulin Aspart 0 TIDAC/HS 10/26 1700 AC 10/27 SC 1702 Levothyroxine Sodium 0.05 MG DAILY AC 10/27 0700 AC 10/28 PO 0654 [place] Carbonate 300 MG 0800 10/27 0800 AC 10/28 PO 0909 [place] Carbonate 600 MG QPM 10/26 2200 AC 10/27 PO 2211 Meclizine HCl 12.5 MG TID PRN 10/26 1615 AC 10/28 PO 0656 Methylprednisolone 40 MG Q12H 10/28 1900 AC IV Methylprednisolone 40 MG Q8 10/27 0956 DC 10/27 IV 0958 Methylprednisolone 40 MG Q8 10/26 1610 DC 10/28 IV 0653 Metoclopramide HCl 10 MG Q6P PRN 10/28 0715 AC 10/28 PO 0908 Midodrine 2.5 MG TID 10/27 1600 AC 10/28 PO 0908 Midodrine 2.5 MG BID 10/26 2200 DC 10/27 PO 0827 Omeprazole 40 MG DAILY AC 10/27 07 AC 10/28 PO 0654 Ondansetron HCl 4 MG ONCE ONE 10/28 0815 DC IV 10/28 0916 Oxycodone/ 2 TAB Q6P PRN 10/26 1600 DC Acetaminophen PO Sertraline HCl 150 MG 0810/27 0800 AC 10/28 PO 0908 Trimethobenzamide HCl 200 MG 4 TIMES/DAY PRN 10/28 0715 AC IM Objective Objective: Physical Exam: General: obese, calm, cooperative, in no acute distress Skin: no rashes, pallor, or cyanosis HEENT: PERRL, EOMI, dry mucus membranes Cardiac: regular rate and rhythm, no murmurs, gallops or rubs Pulm: clear to auscultation, no wheezing, rhonchi, or rales Abdomen: soft, nontender, normoactive bowel sounds Extremities: no clubbing or edema Neuro: alert and oriented x3, sensory deficit in right foot CT head and cervical spine (10/27/16): 1. No acute intracranial pathology. 2. No acute fracture or malalignment in the degenerated cervical spine. No acute findings in the cervical spine compared to 06/03/2014. 3. Patchy alveolar opacities in the visualized lung apices are new compared to the chest CT from 10/06/2016 and require further clinical correlation. This could be a manifestation of multilobar pneumonia and/or cardiogenic pulmonary edema. The critical test result was discussed with Dr. Arizmendi at 10:28 am and it was ascertained that the content of the findings was understood at the time of the direct communication. Vital Signs Date Time Temp Pulse Resp B/P B/P Pulse O2 O2 Flow FiO2 Mean Ox Delivery Rate 10/28 916 92 Nasal 3.0L Cannula 10/28 0655 97.9 57 20 120/60 94 Nasal Cannula 10/28 0126 62 93 10/28 0000 Nasal 4.0L Cannula 10/27 2241 97.4 72 20 150/68 95 Nasal Cannula 10/27 1600 95 Nasal 4.0L Cannula 10/27 1513 95 Nasal 4.0L Cannula 10/27 1457 98.0 74 20 150/64 94 Nasal 4.0L Cannula Intake & Output 10/28 1600 10/28 0800 07 0000 Intake Total 400 600 Output Total Balance 400 600 Intake, Oral 400 600 Results Results: Laboratory Tests 10/28/16 0733: CBC w Diff NO MAN DIFF REQ, RBC 4.20, MCV 92.3, MCH 30.1, RDW 13.3, MPV 9.1, Gran % 71.8, Lymphocytes % 20.4 L, Monocytes % 4.8, Eosinophils % 2.7, Basophils % 0.3, Absolute Granulocytes 8.1 H, Absolute Lymphocytes 2.3, Absolute Monocytes 0.5, Absolute Eosinophils 0.3, Absolute Basophils 0, PUBS MCHC 32.7 L 10/27/16 1000: Troponin I < 0.01 10/27/16 0708: Anion Gap 15, Estimated GFR > 60, BUN/Creatinine Ratio 24.3, CBC w Diff NO MAN DIFF REQ, RBC 4.12 L, MCV 92.7, MCH 30.1, RDW 13.1, MPV 8.9, Gran % 74.3, Lymphocytes % 18.0 L, Monocytes % 5.5, Eosinophils % 1.9, Basophils % 0.3, Absolute Granulocytes 7.8 H, Absolute Lymphocytes 1.9, Absolute Monocytes 0.6, Absolute Eosinophils 0.2, Absolute Basophils 0, PUBS MCHC 32.5 L 10/27/16 0100: Troponin I < 0.01 10/26/16 1935: Troponin I < 0.01 10/26/16 1543: Lactic Acid Cancelled 10/26/16 1330: Urine Opiates Screen < 100.00, Methadone Screen 49, Barbiturate Screen < 60, Ur Phencyclidine Scrn 8.30, Amphetamines Screen < 100, U Benzodiazepines Scrn > 800 H, Urine Cocaine Screen 57, Urine Cannabis Screen < 5.00, Urine Color YEL, Urine Clarity HAZY H, Urine pH 6.0, Ur Specific [place] 1.015, Urine Protein NEG, Urine Ketones NEG, Urine Nitrite NEG, Urine Bilirubin NEG, Urine Urobilinogen 0.2, Ur Leukocyte Esterase SMALL H, Ur Microscopic SEDIMENT EXAMINED, Urine RBC RARE, Urine WBC 5-10 H, Ur Epithelial Cells FEW, Urine Bacteria FEW H, Urine Hemoglobin NEG, Urine Glucose NEG 10/26/16 1255: Anion Gap 12, Estimated GFR > 60, BUN/Creatinine Ratio 16.0, Glucose 192 H, Lactic Acid 1.7, Calcium 10.1, Total Bilirubin 0.5, AST 22, ALT 33, Alkaline Phosphatase 48, Troponin I < 0.01, [id number] Pept 129 H, Total Protein 7.2, Albumin 4.9, Globulin 2.3, Albumin/Globulin Ratio 2.1, PT 11.3, INR 1.08, APTT 30, CBC w Diff MAN DIFF ORDERED, RBC 4.37, MCV 92.1, MCH 30.0, RDW 13.2, MPV 8.9, Gran % 86.4 H, Lymphocytes % 7.4 L, Monocytes % 4.3, Eosinophils % 1.2, Basophils % 0.7, Absolute Granulocytes 12.4 H, Segmented Neutrophils 79 H , Band Neutrophils 8 H, Absolute Lymphocytes 1.1 L, Lymphocytes 6 L, Monocytes 6, Absolute Monocytes 0.6, Eosinophils 1, Absolute Eosinophils 0.2, Absolute Basophils 0.1, Platelet Estimate ADEQUATE, Normocytic RBCs VERIFIED, Normochromic RBCs VERIFIED, PUBS MCHC 32.6 L Microbiology 10/27 1149 LOWER RESP: Respiratory Culture - COLB 10/27 1149 LOWER RESP: Gram Stain - COLB 10/26 1300 BLOOD: Blood Culture - RES 10/26 1255 BLOOD: Blood Culture - RES Assessment/Plan Assessment: Assessment and plan: 51 yo female with PMHx of COPD on 2.5 L of oxygen and 33 pack-yr hx, HLD, pericarditis, angina with negative cardiac cath Apr, SHIRIN, DM type 2, POTS, hypothyroidism, peripheral neuropathy, anxiety, and bipolar disorder presented on Saturday following an outpatient appointment with Dr. Vaca for worsening shortness of breath, chest pain, and a mild cough. Solumedrol, nebulizer treatment and lasix were given in ED. Upon admission, patient was afebrile, HR of 80, hypertensive (158/76) and 92% on 2.5L NC. Labs upon admission significant for leukocytosis (14,400), pro-BNP of 129 and lactic acid of 1.7. Serial troponins were negative. U/A positive for leukocyte esterase, WBC, and bacteria. CXR is negative for pneumonia but showed minimal interstitial perihilar opacities suggesting volume overload or increasing pulmonary venous pressure. EKG showed sinus rhythm, rate of 78 with left posterior fascicular branch block. Repeat EKG remains unchanged. Today, patient remains afebrile, HR of 57, normotensive (120/60), 94% on 4.0 L NC. Labs significant for increase in WBC from 10.5 to 11.3. Cultures and echocardiogram pending. 1. Dyspnea likely due to COPD exacerbation * Differential includes: COPD exacerbation, pericarditis, heart failure, atypical pneumonia * Admit to telemetry, extend observation for 24 more hours * TRC, nebulizer treatment PRN * Taper oxygen from nasal cannula to saturation of 90% * Consider D-dimer level if dyspnea persists * IV azithromycin 500 mg daily (day 3) and IV solumedrol 40 mg q 12 hours (day 3 ) * Blood and sputum cultures, can consider atypical pathogen tailoring abx therapy accordingly * Monitor vitals * Repeat CBC, BEP, trend WBC * Echocardiogram to r\o cardiac causes (patient had pericarditis in the past treated with pericardial window and colchicine and motrion) 2. Chest pain * Pain has subsided * Repeat EKG shows no changes from EKG upon admission * Serial troponins were negative 3. Nausea * Patient is feeling nauseous without vomiting. * IV Zofran PRN 4. Chronic conditions * COPD: albuterol PRN, Symbicort 2 puffs BID * HLD: Lipitor 40 mg PO daily, Fenofibrate 145 mg PO daily * angina: aspirin 81 mg PO daily, furosemide 1.5 tab 20 mg PO daily * SHIRIN: CPAP at night * DM type 2: d/c metformin, finger stick and sliding scale for insulin * POTS: midodrine 2.5 mg PO BID changed to 2.5 mg PO TID per cardiology, check creatinine and monitor BP and HR for hypertension and bradycardia * GERD: pantoprazole sodium 40 mg PO daily * hypothyroidism: levothyroxine sodium 50 mcg PO daily * peripheral neuropathy: gabapentin 300 mg q4 hours PRN * psychiatric disorders: lithium carbonate 300 mg PO qAM and 600 mg PO qPM, aripiprazole 15 mg PO qPM, carbamazepine 200 mg PO TID, sertraline 150 mg PO qPM * allergies: fluticasone propionate * vertigo: meclizine 12.5 mg PO TID PRN Full code DVT prophylaxis: Lovenox
--- NOTE | 2016-10-28 09:15 | PN- Housestaff ---
See Addendum Subjective Follow-up For: COPD exacerbation Syncope Complaints: no complaints Tele-Events Since Last Visit: Sinus bradycardia Sinus rhythm Rate 57-69 no events Subjective: patient was seen and examined this morning. She is alert awake and oriented to time place and person. no acute events noticed overnight. She continues to have dry cough, not associated with any sputum production. Continues to report shortness of breath on 4 L nasal cannula now She does report one episode of syncope this morning. However patient feels much improvement after increasing her midodrine. Vitals remained stable. Afebrile heart rate 60 respiratory rate 20, blood pressure 120/60, saturating at 92 on 4 L nasal cannula. Review of Systems Constitutional: Reports: see HPI. Objective Last 24 Hrs of Vital Signs/I&O Vital Signs Date Time Temp Pulse Resp B/P B/P Pulse O2 O2 Flow FiO2 Mean Ox Delivery Rate 10/28 0655 97.9 57 20 120/60 94 Nasal Cannula 10/28 0126 62 93 10/28 0000 Nasal 4.0L Cannula 10/27 2241 97.4 72 20 150/68 95 Nasal Cannula 10/27 1600 95 Nasal 4.0L Cannula 10/27 1513 95 Nasal 4.0L Cannula 10/27 1457 98.0 74 20 150/64 94 Nasal 4.0L Cannula Intake & Output 10/28 1600 10/28 0800 / 0000 Intake Total 400 600 Output Total Balance 400 600 Intake, Oral 400 600 Physical Exam General Appearance: Alert, Oriented X3, Cooperative, No Acute Distress Skin: No Rashes, No Breakdown HEENT: Atraumatic, PERRLA, EOMI, Mucous Membr. moist/pink Neck: Supple, No JVD Lymphatic: Cervical nl Cardiovascular: Normal S1, Normal S2 Lungs: Normal Air Movement, b/l insp and exp wheezes Abdomen: Normal Bowel Sounds, Soft, No Tenderness, No Hepatospenomegaly Neurological: Strength at 5/5 X4 Ext, Normal Tone, Sensation Intact Extremities: No Clubbing, No Cyanosis, No Edema, Normal Pulses Vascular: Normal Pulses, Pulses Symmetrical Current Medications: Current Medications Sig/Ralph Start time Last Medication Dose Route Stop Time Status Admin Acetaminophen 650 MG Q6P PRN 10/26 1600 AC PO Albuterol Sulfate 3 ML Q4P PRN 10/26 2215 AC 10/27 INH 2030 Albuterol Sulfate 2 PUF Q4-6 PRN PRN 10/26 1600 AC INH Aripiprazole 15 MG 2200 10/26 2200 AC 10/27 PO 2210 Aspirin Buffered 81 MG QAM 10/26 1600 AC 10/28 PO 0908 Atorvastatin Calcium 40 MG QPM 10/26 2200 AC 10/27 PO 2210 Azithromycin 500 MG DAILY@1700 07 1700 AC 10/27 Sodium Chloride 250 ML IV 1650 Budesonide/ 2 PUF BID 10/26 2200 AC 10/28 Formoterol Fumarate INH 0909 Carbamazepine 200 MG 0800,1700,10/26 1700 AC 10/28 PO 0909 Enoxaparin Sodium 40 MG DAILY 10/26 1556 AC 10/28 SC 0908 Fenofibrate 145 MG DAILY 10/26 1600 AC 10/28 PO 0908 Fluticasone 2 SPRAY DAILY 10/26 1601 AC 10/28 Propionate TRUMAN 0909 Folic Acid 1 MG QAM 10/26 1601 AC 10/28 PO 0908 Furosemide 30 MG DAILY 10/26 1601 AC 10/28 PO 0908 Gabapentin 300 MG Q4P PRN 10/26 1615 AC 10/27 PO 2212 Ibuprofen 600 MG Q6P PRN 10/26 1600 AC PO Insulin Aspart 0 TIDAC/HS 10/26 1700 AC 10/27 SC 1702 Levothyroxine Sodium 0.05 MG DAILY AC 10/27 0700 AC 10/28 PO 0654 Manuel Garcia Ii Carbonate 300 MG 0800 / 0800 AC 10/28 PO 0909 Manuel Garcia Ii Carbonate 600 MG QPM 10/26 2200 AC 10/27 PO 2211 Meclizine HCl 12.5 MG TID PRN 10/26 1615 AC 10/28 PO 0656 Methylprednisolone 40 MG Q12 10/28 1000 UNVr IV Methylprednisolone 40 MG Q8 10/27 0956 DC 10/27 IV 0958 Methylprednisolone 40 MG Q8 10/26 1610 DC 10/28 IV 0653 Metoclopramide HCl 10 MG Q6P PRN 10/28 0715 AC 10/28 PO 0908 Midodrine 2.5 MG TID 10/27 1600 AC 10/28 PO 0908 Midodrine 2.5 MG BID 10/26 2200 DC 10/27 PO 0827 Omeprazole 40 MG DAILY AC 10/27 07 AC 10/28 PO 0654 Ondansetron HCl 4 MG ONCE ONE 10/28 914 AC IV 10/29 915 Oxycodone/ 2 TAB Q6P PRN 10/26 1600 DC Acetaminophen PO Sertraline HCl 150 MG 0810/27 08 AC 10/28 PO 907 Trimethobenzamide HCl 200 MG 4 TIMES/DAY PRN 10/28 714 AC IM Last 24 Hrs of Lab/Matthieu Results Last 24 Hrs of Labs/Mics: Laboratory Tests 10/28/16 0733: CBC w Diff NO MAN DIFF REQ, RBC 4.20, MCV 92.3, MCH 30.1, RDW 13.3, MPV 9.1, Gran % 71.8, Lymphocytes % 20.4 L, Monocytes % 4.8, Eosinophils % 2.7, Basophils % 0.3, Absolute Granulocytes 8.1 H, Absolute Lymphocytes 2.3, Absolute Monocytes 0.5, Absolute Eosinophils 0.3, Absolute Basophils 0, PUBS MCHC 32.7 L 10/27/16 1000: Troponin I < 0.01 Microbiology 10/27 1149 LOWER RESP: Respiratory Culture - COLB 10/27 114 LOWER RESP: Gram Stain - COLB Assessment/Plan Assessment: This is a 51-year-old female with past medical history significant for Vertigo, dizziness, peripheral neuropathy, transient ischemic attack, trigeminal neuralgia, anxiety, bipolar disorder, depression, substance abuse disorder, COPD on home oxygen 2 L at nighttime, atypical chest pain, recent catheterization in April normal, hyperlipidemia, hypertriglyceridemia, obstructive sleep apnea on CPAP, diabetes mellitus, hypothyroid, GERD, presented to ER from Dr. Wall business [employer] office with shortness of breath on rest and low oxygen saturations. Vitals on admission afebrile, heart rate 80, respiratory 20, blood pressure 158/ 70, saturating at 90 on 3 L oxygen. Pertinent labs on admission-leukocytosis 15,000, H&H 13, 40. BEP was normal. Urine analysis normal. BNP 129. First set of troponin and EKG normal. EKG showed 78, sinus rhythm, left posterior fascicular branch block. Chest x-ray showed Vascular prominence with minimal interstitial perihilar opacities could reflect some volume overload or increased pulmonary venous pressure. No acute focal pneumonia or alveolar edema. Assessment and plan 1. Acute COPD exacerbation Patient presented with severe shortness of breath on rest. Minimal relief with inhalers and nebulizer treatment. Desaturated to 85 on 2 L oxygen. Associated with minimal cough and sputum production. She is afebrile with elevated leukocyte count on admission. Chest x-ray was showing pulmonary opacities with fluid overload. * Placed to telemetry floor for further observation and management * Monitor vitals closely every shift * Provide supplemental oxygen and maintained saturations greater than 90% * Total respiratory care * DUONEBS * Blood cultures follow-up * Sputum cultures * IV steroids methylprednisone 40 every 12 hours * IV antibiotic azithromycin- day3 -anti-inflammatory effect * Dr. Wall was notified 2. Acute on chronic respiratory failure Patient uses 2 L oxygen at home during nighttime for COPD. However she desaturated to 85 on 3 L oxygen. * Monitor vitals every shift * Maintain oxygen saturation greater than 90 * Provide supplemental oxygen as needed * Total respiratory care 3. Acute coronary syndrome Patient reported mild chest pain at [employer] office. Off note patient had atypical chest pain in the past she underwent catheterization in April which was normal. Off note she is a diabetic patient. Will rule out acute coronary syndrome * Serial troponins and ekg -ruled out acute coronary syndrome. * Continue aspirin 81 mg. #2 Syncope: Patient had an episode of syncope 10/27/2016 and an unwitnessed fall to the ground. * Continue telemetry monitoring for arrhythmias * Patient has history of orthostatic hypotension and is on midodrine 2.5 twice a day. Patient has POTS (postural hypotension syndrome). As per cardiology recommendation the dose of midodrine has been increased to 2.5 ,3 times a day since the blood patient's blood pressure was found to have dropped from 160 to 128. * Troponin and EKGs have been normal * CT scan of the head and cervical spine showed no fracture/dislocation * Echocardiogram ordered/pending. * Cardiology consult with Dr. Landon. 4. Diabetes mellitus Patient usually takes metformin thousand twice a day at home Will hold metformin in the hospital Finger checks Insulin sliding scale 5. Hypothyroidism Continue home medication levothyroxine 50 g daily 6. GERD Continue omeprazole 40 daily 7. Obstructive sleep apnea On CPAP at home Will continue CPAP 8. Hypertriglyceridemia Continue home medication Fenofibrate. 9. Hyperlipidemia Continue Lipitor 40 10. Bilateral lower extremity swelling Continue home medications Lasix 30 mg daily. 11. Anxiety/bipolar/depression Continue home medication lithium, Abilify, carbamazepine, sertraline 12. Trigeminal neuralgia Continue home medications gabapentin 13. vertigo Continue meclizine 12.5 mg when necessary tid Full code DVT prophylaxis subcutaneous Lovenox Regular diet Pain pathway Problem List: 1. COPD exacerbation Pain Ratin Pain Location: n/a Pain Goal: Remain pain free Pain Plan: tylenol Tomorrow's Labs & Rationales: none
[2016-10-28 14:53] VITALS: BP 124/52
--- NOTE | 2016-10-28 15:22 | NUR ---
LATE ENTRY NOTE 10/27/16 0915 RAPID RESPONSE CALLED. PT FOUND ON FLOOR BY ROOM MATE. PT STATES "PASSED OUT" AND IT HAPPENS ALL THE TIME. PT UNSURE IF HIT HEAD. PT PLACED ON BOARD/COLLAR. VSS. SEE RAPID SHEET. EKG OBTAINED. PT TO CT SCAN WITH RN.
--- NOTE | 2016-10-28 19:48 | ECHOCARDIOGRAM REPORT ---
DAIJA DONAHUE Age: 51 : 1965 Gender: F Exam Date: 10/28/2016 15:32 Exam Location: 1 [address] Ht (in): 62 Wt (lb): 230 BSA: 2.20 BP: / Ordering Physician: DOUGIE ALFREDO MD Referring Physician: DOUGIE ALFREDO MD Technologist: Kanu Heller DONNY Room Number: Indications: PRESYNCOPE/SYNCOPE Rhythm: Sinus Technical Quality: Fair FINDINGS Left Ventricle Normal size left ventricle. No obvious regional wall motion abnormalities. Left ventricular wall thickness increased. Normal left ventricular ejection fraction estimated at 60-65%. Right Ventricle Right ventricle not well visualized, grossly normal. Right Atrium Normal right atrial size. Left Atrium Normal left atrial size. Mitral Valve Mitral valve thickened. Trace mitral regurgitation. Aortic Valve Trileaflet aortic valve. Focal thickening of the aortic valve cusps. No aortic stenosis. Tricuspid Valve Tricuspid valve not well visualized, grossly normal. Pulmonic Valve Pulmonic valve not well visualized, grossly normal. Pericardium Small pericardial effusion. Great Vessels Aortic root and proximal ascending aorta not well visualized, grossly normal. CONCLUSIONS 1. This was a technically difficult examination. 2. Mild aortic sclerosis is present with no stenosis or insufficiency. 3. Mitral leaflet thickening is present with minimal mitral insufficiency 4. A small posterior pericardial effusion is present. 5. The left ventricular chamber size and systolic function are normal. Mild concentric hypertrophy is present. 6. The right heart structures were not optimally assessed on this study. The RV systolic pressure could not be assessed. Yasmeen Landon M.D. (Electronically Signed) Final Date: 28 October 2016 19:48 MEASUREMENTS (Male / Female) Normal Values 2D ECHO LV Diastolic Diameter PLAX 4.1 cm 4.2 - 5.9 / 3.9 - 5.3 cm LV Systolic Diameter PLAX 2.7 cm 2.1 - 4.0 cm LV Fractional Shortening PLAX 34.1 % 25 - 46 % LV Ejection Fraction 2D Teich 63.6 % IVS Diastolic Thickness 1.3 cm LVPW Diastolic Thickness 1.3 cm LV Relative Wall Thickness 0.6 RV Internal Dim ED PLAX 2.8 cm 1.9 - 3.8 cm LV Ejection Fraction MOD BP 67.1 % >= 55 % LV Diastolic Length 4C 7.3 cm 6.9 - 10.3 cm LV Diastolic Area 4C 28.5 cm LV Diastolic Volume MOD 4C 92.0 cm LV Ejection Fraction MOD 4C 64.1 % LV Stroke Volume MOD 4C 59.0 cm LV Systolic Length 4C 5.6 cm LV Systolic Area 4C 14.8 cm LV Systolic Volume MOD 4C 33.0 cm LV Ejection Fraction MOD 2C 66.7 % LV Diastolic Volume 4C AL 94.4 cm 85 - 139 / 69 - 109 cm LV Systolic Volume 4C AL 33.2 cm LV Ejection Fraction 4C AL 64.8 % LV Stroke Volume 4C AL 61.2 cm LV Ejection Fraction 2C AL 68.4 % Ascending Aorta Diameter 2.6 cm DOPPLER AV Peak Velocity 172.0 cm/s AV Peak Gradient 11.8 mmHg LVOT Peak Velocity 116.0 cm/s LVOT Peak Gradient 5.4 mmHg Mitral E Point Velocity 75.0 cm/s Mitral A Point Velocity 92.3 cm/s Mitral E to A Ratio 0.8 MV Deceleration Time 306.0 ms PV Peak Velocity 153.0 cm/s PV Peak Gradient 9.4 mmHg LV E' Lateral Velocity 8.9 cm/s Mitral E to LV E' Lateral Ratio 8.5 LV E' Septal Velocity 6.0 cm/s Mitral E to LV E' Septal Ratio 12.4
--- NOTE | 2016-10-28 20:33 | NUR ---
PATIENT ALERT ABND ORIENTED X 3. DENIES ANY PAIN. C/O SOB. RT CALLED FOR TRC. WILL CONTINUE TO MONITOR.
[2016-10-28 22:00] VITALS: BP 138/80
[2016-10-29 00:12] VITALS: BP 138/80
--- NOTE | 2016-10-29 06:43 | PN- Housestaff ---
REYES HORN 10/29/16 0642: Subjective Follow-up For: COPD exacerbation Syncope Complaints: no complaints Tele-Events Since Last Visit: NSR/SB HR 50-60s Subjective: Patient complains of persistent dry cough and dyspnea. Had CP last night resolved with morphine. Review of Systems Constitutional: Reports: see HPI. Objective Last 24 Hrs of Vital Signs/I&O Vital Signs Date Time Temp Pulse Resp B/P B/P Pulse O2 O2 Flow FiO2 Mean Ox Delivery Rate 10/30 0741 93 Nasal 3.0L Cannula 10/30 799 95 Nasal 3.0L Cannula 10/29 0702 98.2 55 18 126/74 97 Nasal Cannula 10/29 0012 97.6 66 18 138/80 96 BIPAP 10/29 0000 CPAP 10/28 2243 65 98 10/28 2200 98.0 65 18 138/80 95 Nasal 4.0L Cannula 10/28 2008 93 Nasal 4.0L Cannula 10/28 1600 Nasal 4.0L Cannula 10/28 1453 98.5 60 22 124/52 94 Nasal 3.0L Cannula 10/28 0817 92 Nasal 3.0L Cannula Intake & Output 10/29 1600 10/29 0800 10/29 0000 Intake Total 100 730 Output Total 300 400 Balance -200 330 Intake, IV 250 Intake, Oral 100 480 Output, Urine 300 400 Physical Exam General Appearance: Alert, Oriented X3, Mild Distress, Orthostats negative HEENT: Atraumatic, PERRLA Cardiovascular: Normal S1, Normal S2 Lungs: Clear to Auscultation Abdomen: Normal Bowel Sounds, Soft, No Tenderness Extremities: No Edema Current Medications: Current Medications Sig/Ralph Start time Last Medication Dose Route Stop Time Status Admin Acetaminophen 650 MG Q6P PRN 10/26 1600 AC PO Albuterol Sulfate 3 ML EVERY 4 HRS/AWAKE 10/29 0800 AC 10/29 INH 0838 Albuterol Sulfate 3 ML EVERY 4 HRS/AWAKE .. 10/28 224 AC INH Albuterol Sulfate 3 ML Q4P PRN 10/26 2215 DC 10/28 INH 2008 Albuterol Sulfate 2 PUF Q4-6 PRN PRN 10/26 1600 AC 10/28 INH 2227 Aripiprazole 15 MG 2200 10/26 220 AC 10/28 PO 214 Aspirin 243 MG ONCE ONE 10/29 0030 DC 10/29 PO 10/29 0031 0034 Aspirin 243 MG .STK-MED ONE 10/29 0030 DC PO 10/29 0031 Aspirin Buffered 81 MG QAM 10/26 1600 AC 10/28 PO 0908 Atorvastatin Calcium 40 MG QPM 10/26 2200 AC 10/28 PO 2149 Azithromycin 250 MG DAILY 10/29 1000 AC PO 10/30 1001 Azithromycin 500 MG DAILY@1700 07/07 1700 DC 10/28 Sodium Chloride 250 ML IV 1619 Budesonide/ 2 PUF BID 10/26 2200 AC 10/28 Formoterol Fumarate INH 2156 Carbamazepine 200 MG 0800,1700,10/26 1700 AC 10/28 PO 2004 Enoxaparin Sodium 40 MG DAILY 10/26 1556 AC 10/28 SC 0908 Fenofibrate 145 MG DAILY 10/26 1600 AC 10/28 PO 0908 Fluticasone 2 SPRAY DAILY 10/26 1601 AC 10/28 Propionate TRUMAN 0909 Folic Acid 1 MG QAM 10/26 1601 AC 10/28 PO 0908 Furosemide 30 MG DAILY 10/26 1601 AC 10/28 PO 0908 Gabapentin 300 MG Q4P PRN 10/26 1615 AC 10/27 PO 2212 Ibuprofen 600 MG Q6P PRN 10/26 1600 AC PO Insulin Aspart 0 TIDAC/HS 10/26 1700 AC 10/29 SC 0815 Levothyroxine Sodium 0.05 MG DAILY AC 10/27 07 AC 10/29 PO 0652 Walsh Carbonate 300 MG 0800 /08 0800 AC 10/28 PO 0909 Walsh Carbonate 600 MG QPM 10/26 2200 AC 10/28 PO 2149 Meclizine HCl 12.5 MG TID PRN 10/26 1615 AC 10/28 PO 0656 Methylprednisolone 40 MG Q12H 10/28 1900 DC 10/29 IV 0652 Metoclopramide HCl 10 MG Q6P PRN 10/28 0715 AC 10/28 PO 1619 Midodrine 5 MG BID 10/28 2200 AC 10/28 PO 2149 Midodrine 2.5 MG TID 10/27 1600 DC 10/28 PO 0908 Morphine Sulfate 2 MG ONCE ONE 10/29 0030 DC 10/29 IV 10/29 0031 0025 Omeprazole 40 MG DAILY AC 10/27 699 AC 10/29 PO 0652 Ondansetron HCl 4 MG ONCE ONE 10/28 914 DC IV 10/29 915 Prednisone 40 MG DAILY 10/29 1000 AC PO Sertraline HCl 150 MG 0800 10/27 0800 AC 10/28 PO 0908 Trimethobenzamide HCl 200 MG 4 TIMES/DAY PRN 10/28 0615 AC 10/28 IM 1222 Last 24 Hrs of Lab/Matthieu Results Last 24 Hrs of Labs/Mics: Laboratory Tests 10/29/16 0710: Troponin I Pending 10/29/16 0100: Troponin I < 0.01 Orders EKG Findings: NSR RVH HR 60 Lines/Diet/Fluids Lines: peripheral lines Assessment/Plan Assessment: A: Ms. Virgen is a 51 yo F with a PMH of COPD, HTN, HLD, s/p cath (04/2016), SHIRIN , Asthma, TIA, DM, Hypothyroidism, anxiety/bipolar disorder presented to the ED after Dr. Wall office visit due to SOB-O2 sat 87. At the office she reported SOB and CP, she was advised to go to the ED. In the ED she stated that her SOB was present during exertion associated with a cough but denies sputum production , fever, chills but had a headache at the time. P: 1. Acute COPD exacerbation * Continue telemetry * Continue orthostat vitals * Maintain O2 sat>90% * Total respiratory care * DUONEBS * IV steroids switched to 40mg PO q12 * IV AZ switched to 500mg PO * Dr. Wall was notified 2. Acute on chronic respiratory failure * Continue telemetry * Maintain O2 sat>90%, oxygen PRN * Total respiratory care 3. Acute coronary syndrome * Serial troponins and ekg -ruled out acute coronary syndrome. * Continue aspirin 81 mg. 4. Syncope/POTS syndrome: Patient had an episode of syncope 10/27/2016 and 10/28/2016 * Continue telemetry monitoring for arrhythmias * Midodrine increased from 2.5mg TID to 5mg BID for postural hypotension * Troponin and EKGs have been normal * CT scan of the head and cervical spine showed no fracture/dislocation * Echo- RV was not assessed * Continue to monitor orthostat vitals 5. Diabetes mellitus * Finger checks * Insulin sliding scale 6. Hypothyroidism * Continue home medication levothyroxine 50 g daily 7. GERD * Continue omeprazole 40 daily 8. Obstructive sleep apnea * Continue CPAP 9. Hypertriglyceridemia * Continue home medication Fenofibrate. 10. Hyperlipidemia * Continue Lipitor 40 11. Bilateral lower extremity swelling * Continue home medications Lasix 30 mg daily. 12. Anxiety/bipolar/depression * Continue home medication lithium, Abilify, carbamazepine, sertraline 13. Trigeminal neuralgia * Continue home medications gabapentin 14. vertigo Continue meclizine 12.5 mg when necessary tid Full code DVT prophylaxis subcutaneous Lovenox Regular diet Pain pathway Problem List: 1. CHEST PAIN 2. Syncope 3. Fall 4. Shortness of breath 5. COPD exacerbation Pain Ratin Pain Location: N/A Pain Goal: Remain pain free Pain Plan: N/A Tomorrow's Labs & Rationales: None LINCOLN VELAZQUEZ 10/29/16 0934: Attending MD Review Statement Attending Statement Attending MD Statement: examined this patient, discuss w/resident/PA/[employer], agreed w/resident/PA/[employer], discussed with family, reviewed EMR data (avail), discussed with nursing, discussed with case mgmt, reviewed images, amended to note Attending Assessment/Plan: ASSESSMENT 1. Acute on chronic respriatroy failure 2. COPD excaebration on home oxygen 3. atypical chest pain in intermediate to high risk 4. hypertension 5. hyperlipidemia 6. SHIRIN on cpap 7. GERD 8. Opiod dependence/substance abuse 9. Diabetes 10. hypothyroidism 11. Syncope vasovagal likely/POTS syndrome PLAN continue telemetry monitoring, admit to medical services. serial cardiac enzymes and serial ekg negative. recent cath negative taper steroids PO, i/v abx change to PO, oxygen supplementation. TRC, cpap at night. cardiology consult for syncope/POTS syndrome on midodrine ct head no bleed/acute issues. RISS and titrate insulin as needed resume home meds gi/dvt prophyalxis full code. anticipate d/c soon. f/u o/p PCP and Dr Wall Pulmonary as scheduled.
[2016-10-29 07:02] VITALS: BP 126/74
--- NOTE | 2016-10-29 07:58 | PN- Student ---
Subjective Subjective: Patient was seen and examined this morning. Chest pain was reported around midnight. She describes it as a "squeezing" pain that she rated as a 8/10 but with medications it decreased to a 2/10. Patient is still experiencing mild chest pain but not compared to last night. She states that she still is having difficulty breathing but it has improved "a little." Patient reports difficulty breathing, nausea, headache, dizziness throughout the day, non-productive cough. Denies vomiting, abdominal pain, abdominal discomfort, swelling in the legs. No syncopal episodes noted this morning. Current Medications Sig/Ralph Start time Last Medication Dose Route Stop Time Status Admin Acetaminophen 650 MG Q6P PRN 10/26 1600 AC PO Albuterol Sulfate 3 ML EVERY 4 HRS/AWAKE 10/29 0800 AC INH Albuterol Sulfate 3 ML EVERY 4 HRS/AWAKE .. 10/28 2245 AC INH Albuterol Sulfate 3 ML Q4P PRN 10/26 2215 DC 10/28 INH 2008 Albuterol Sulfate 2 PUF Q4-6 PRN PRN 10/26 1600 AC 10/28 INH 2227 Aripiprazole 15 MG 2200 10/26 2200 AC 10/28 PO 2149 Aspirin 243 MG ONCE ONE 10/29 0030 DC 10/29 PO 10/29 0031 0034 Aspirin Buffered 81 MG QAM 10/26 1600 AC 10/28 PO 0908 Atorvastatin Calcium 40 MG QPM 10/26 2200 AC 10/28 PO 2149 Azithromycin 250 MG DAILY 10/29 1000 AC PO 10/30 1001 Azithromycin 500 MG DAILY@1700 10/26 1700 DC 10/28 Sodium Chloride 250 ML IV 1619 Budesonide/ 2 PUF BID 10/26 2200 AC 10/28 Formoterol Fumarate INH 2156 Carbamazepine 200 MG 0800,1700,10/26 1700 AC 10/28 PO 2004 Enoxaparin Sodium 40 MG DAILY 10/26 1556 AC 10/28 SC 0908 Fenofibrate 145 MG DAILY 10/26 1600 AC 10/28 PO 0908 Fluticasone 2 SPRAY DAILY 10/26 1601 AC 10/28 Propionate TRUMAN 0909 Folic Acid 1 MG QAM 10/26 1601 AC 10/28 PO 0908 Furosemide 30 MG DAILY 10/26 1601 AC 10/28 PO 0908 Gabapentin 300 MG Q4P PRN 10/26 1615 AC 10/27 PO 2212 Ibuprofen 600 MG Q6P PRN 10/26 1600 AC PO Insulin Aspart 0 TIDAC/HS 10/26 1700 AC 10/28 SC 2151 Levothyroxine Sodium 0.05 MG DAILY AC 10/27 699 AC 10/29 PO 0652 Cosby Carbonate 300 MG 0810/27 0800 AC 10/28 PO 0909 Cosby Carbonate 600 MG QPM 10/26 2200 AC 10/28 PO 2149 Meclizine HCl 12.5 MG TID PRN 10/26 1615 AC 10/28 PO 0656 Methylprednisolone 40 MG Q12H 10/28 1900 DC 10/29 IV 0652 Methylprednisolone 40 MG Q8 10/26 1610 DC 10/28 IV 0653 Metoclopramide HCl 10 MG Q6P PRN 10/28 0715 AC 10/28 PO 1619 Midodrine 5 MG BID 10/28 2200 AC 10/28 PO 2149 Midodrine 2.5 MG TID 10/27 1600 DC 10/28 PO 0908 Morphine Sulfate 2 MG ONCE ONE 10/29 0030 DC 10/29 IV 10/29 0031 0025 Omeprazole 40 MG DAILY AC 10/27 07 AC 10/29 PO 0652 Ondansetron HCl 4 MG ONCE ONE 10/28 0815 DC IV 10/28 0916 Prednisone 40 MG DAILY 10/29 1000 AC PO Sertraline HCl 150 MG 10/27 0800 AC 10/28 PO 0908 Trimethobenzamide HCl 200 MG 4 TIMES/DAY PRN 10/28 0715 AC 10/28 IM 1222 Objective Objective: Physical Exam: General: obese, calm, cooperative, in no acute distress Skin: no rashes, pallor, or cyanosis HEENT: PERRL, EOMI Cardiac: regular rate and rhythm, no murmurs, gallops or rubs Pulm: clear to auscultation, no wheezing, rhonchi, or rales Abdomen: soft, nontender, normoactive bowel sounds Extremities: no clubbing or edema Neuro: alert and oriented x3, sensory deficit in right foot Overnight events: sinus rhythm, sinus bradycardia with low of 50 and high of 61 Vital Signs Date Time Temp Pulse Resp B/P B/P Pulse O2 O2 Flow FiO2 Mean Ox Delivery Rate 10/29 701 98.2 55 18 126/74 97 Nasal Cannula 10/29 0012 97.6 66 18 138/80 96 BIPAP 10/29 0000 CPAP 10/28 2243 65 98 10/28 2200 98.0 65 18 138/80 95 Nasal 4.0L Cannula 10/28 2008 93 Nasal 4.0L Cannula 10/28 1600 Nasal 4.0L Cannula 10/28 1453 98.5 60 22 124/52 94 Nasal 3.0L Cannula 10/28 0817 92 Nasal 3.0L Cannula Intake & Output 10/29 1600 10/29 0800 10/29 0000 Intake Total 730 Output Total 400 Balance 330 Intake, IV 250 Intake, Oral 480 Output, Urine 400 Echocardiogram (10/28/16): CONCLUSIONS 1. This was a technically difficult examination. 2. Mild aortic sclerosis is present with no stenosis or insufficiency. 3. Mitral leaflet thickening is present with minimal mitral insufficiency 4. A small posterior pericardial effusion is present. 5. The left ventricular chamber size and systolic function are normal. Mild concentric hypertrophy is present. 6. The right heart structures were not optimally assessed on this study. The RV systolic pressure could not be assessed. Results Results: Laboratory Tests 10/29/16 0100: Troponin I < 0.01 10/28/16 0733: CBC w Diff NO MAN DIFF REQ, RBC 4.20, MCV 92.3, MCH 30.1, RDW 13.3, MPV 9.1, Gran % 71.8, Lymphocytes % 20.4 L, Monocytes % 4.8, Eosinophils % 2.7, Basophils % 0.3, Absolute Granulocytes 8.1 H, Absolute Lymphocytes 2.3, Absolute Monocytes 0.5, Absolute Eosinophils 0.3, Absolute Basophils 0, PUBS MCHC 32.7 L 10/27/16 1000: Troponin I < 0.01 10/27/16 0708: Anion Gap 15, Estimated GFR > 60, BUN/Creatinine Ratio 24.3, CBC w Diff NO MAN DIFF REQ, RBC 4.12 L, MCV 92.7, MCH 30.1, RDW 13.1, MPV 8.9, Gran % 74.3, Lymphocytes % 18.0 L, Monocytes % 5.5, Eosinophils % 1.9, Basophils % 0.3, Absolute Granulocytes 7.8 H, Absolute Lymphocytes 1.9, Absolute Monocytes 0.6, Absolute Eosinophils 0.2, Absolute Basophils 0, PUBS MCHC 32.5 L 10/27/16 0100: Troponin I < 0.01 10/26/16 1935: Troponin I < 0.01 10/26/16 1543: Lactic Acid Cancelled 10/26/16 1330: Urine Opiates Screen < 100.00, Methadone Screen 49, Barbiturate Screen < 60, Ur Phencyclidine Scrn 8.30, Amphetamines Screen < 100, U Benzodiazepines Scrn > 800 H, Urine Cocaine Screen 57, Urine Cannabis Screen < 5.00, Urine Color YEL, Urine Clarity HAZY H, Urine pH 6.0, Ur Specific [place] 1.015, Urine Protein NEG, Urine Ketones NEG, Urine Nitrite NEG, Urine Bilirubin NEG, Urine Urobilinogen 0.2, Ur Leukocyte Esterase SMALL H, Ur Microscopic SEDIMENT EXAMINED, Urine RBC RARE, Urine WBC 5-10 H, Ur Epithelial Cells FEW, Urine Bacteria FEW H, Urine Hemoglobin NEG, Urine Glucose NEG 10/26/16 1255: Anion Gap 12, Estimated GFR > 60, BUN/Creatinine Ratio 16.0, Glucose 192 H, Lactic Acid 1.7, Calcium 10.1, Total Bilirubin 0.5, AST 22, ALT 33, Alkaline Phosphatase 48, Troponin I < 0.01, [id number] Pept 129 H, Total Protein 7.2, Albumin 4.9, Globulin 2.3, Albumin/Globulin Ratio 2.1, PT 11.3, INR 1.08, APTT 30, CBC w Diff MAN DIFF ORDERED, RBC 4.37, MCV 92.1, MCH 30.0, RDW 13.2, MPV 8.9, Gran % 86.4 H, Lymphocytes % 7.4 L, Monocytes % 4.3, Eosinophils % 1.2, Basophils % 0.7, Absolute Granulocytes 12.4 H, Segmented Neutrophils 79 H , Band Neutrophils 8 H, Absolute Lymphocytes 1.1 L, Lymphocytes 6 L, Monocytes 6, Absolute Monocytes 0.6, Eosinophils 1, Absolute Eosinophils 0.2, Absolute Basophils 0.1, Platelet Estimate ADEQUATE, Normocytic RBCs VERIFIED, Normochromic RBCs VERIFIED, [facility] MCHC 32.6 L Microbiology 10/27 1149 LOWER RESP: Respiratory Culture - CAN Cancelled: NO SPUTUM COLLECTED FOR MICRO DEPT 10/27 1149 LOWER RESP: Gram Stain - CAN Cancelled: NO SPUTUM COLLECTED FOR MICRO DEPT 10/26 1300 BLOOD: Blood Culture - RES 10/26 1255 BLOOD: Blood Culture - RES Assessment/Plan Assessment: Assessment and plan: 51 yo female with PMHx of COPD on 2.5 L of oxygen and 33 pack-yr hx, HLD, pericarditis, angina with negative cardiac cath Apr, SHIRIN, DM type 2, POTS, hypothyroidism, peripheral neuropathy, anxiety, and bipolar disorder presented on Saturday following an outpatient appointment with Dr. Vaca for worsening shortness of breath, chest pain, and a mild cough. Solumedrol, nebulizer treatment and lasix were given in ED. Upon admission, patient was afebrile, HR of 80, hypertensive (158/76) and 92% on 2.5L NC. Labs upon admission significant for leukocytosis (14,400), pro-BNP of 129 and lactic acid of 1.7. Serial troponins were negative. U/A positive for leukocyte esterase, WBC, and bacteria. CXR is negative for pneumonia but showed minimal interstitial perihilar opacities suggesting volume overload or increasing pulmonary venous pressure. EKG showed sinus rhythm, rate of 78 with left posterior fascicular branch block. Repeat EKG remains unchanged. Today, patient remains afebrile, HR of 55, normotensive (126/74), 97% on 4.0 L NC. Echo yesterday significant for mild aortic stenosis, mitral leaflet thickening and small posterior pericardial effusion, EF 60-65%. Serial troponins were negative. No blood culture growth after 4 days. 1. Dyspnea likely due to COPD exacerbation * Differential includes: COPD exacerbation, pericarditis, heart failure, atypical pneumonia * Plan to discharge today * TRC, nebulizer treatment PRN * Taper oxygen from nasal cannula to saturation of 90% * Antibiotic and steroids from IV to PO, PO azithromycin 250 mg daily (day 4) and PO prednisone 40 mg daily (day 4) * Monitor vitals * Repeat CBC, BEP * Outpatient f/u with Dr. Wall 2. Chest pain * Pain overnight treated with morphine 2 mg and aspirin 243 mg * Repeat EKG shows no changes from EKG upon admission * Serial troponins were negative * Outpatient f/u with engine monitor 3. Chronic conditions * COPD: albuterol PRN, Symbicort 2 puffs BID * HLD: Lipitor 40 mg PO daily, Fenofibrate 145 mg PO daily * angina: aspirin 81 mg PO daily, furosemide 1.5 tab 20 mg PO daily * SHIRIN: CPAP at night * DM type 2: d/c metformin, finger stick and sliding scale for insulin * POTS: midodrine 2.5 mg PO TID changed to 5 mg PO BID per cardiology, check creatinine and monitor BP and HR for hypertension and bradycardia * GERD: pantoprazole sodium 40 mg PO daily * hypothyroidism: levothyroxine sodium 50 mcg PO daily * peripheral neuropathy: gabapentin 300 mg q4 hours PRN * psychiatric disorders: lithium carbonate 300 mg PO qAM and 600 mg PO qPM, aripiprazole 15 mg PO qPM, carbamazepine 200 mg PO TID, sertraline 150 mg PO qPM * allergies: fluticasone propionate * vertigo: meclizine 12.5 mg PO TID PRN Full code DVT prophylaxis: Lovenox DVT prophylaxis: Lovenox
[2016-10-29] MEDS ORDERED: MIDODRINE HCL2.5 M1 PO (09:45)
[2016-10-29] MEDS ORDERED: AZITHROMYCIN500 M3 PO (09:45)
[2016-10-29] MEDS ORDERED: PREDNISONE10 M2 PO (09:45)
--- NOTE | 2016-10-29 09:59 | Cons- Pulmonary ---
General Information and HPI Consulting Request Date of Consult: 10/29/16 Requested By: Dr. Mg Reason for Consult: dyspnea Source of Information: patient Exam Limitations: no limitations History of Present Illness: 50 year old woman. Sent from office for dyspnea and desaturation. Had some pre-syncopal episodes. Tele monitoring. Dyspnea remains, but saturations improved. DM Type II, some minor improvement in dyspnea that she experienced for a few days. Uses BiPAP with O2 bleed in. Continues to have hoarseness which is on/off. Sees Dr. Shafer. On BiPAP 08/04. No fevers, no chills, some dry cough. Patient had a CT scan in February 2015. She has a stable 4 mm left upper lobe nodule dating back to August 2014. This is stable for over 2 years and considered benign. Resolved pericardial effusion as well. Some mosaicism suggesting reactive airway disease. PFTs performed 03/30/2015. Showing a moderately severe reduction in FEV1 and FVC. She does have a significant bronchodilator response however her FEV1/FVC percent is normal. TLC is reduced and her DLCO is moderately reduced as well. This is consistent with a mixed obstruction and restrictive deficit. Allergies/Medications Allergies: Coded Allergies: codeine (Severe, ITCH 10/26/16) lemon (Severe, SOB 10/26/16) melatonin (Severe, HIVES/RASH 10/26/16) PER . -CG 07/16/16 propranolol (Severe, SHOCK PER PT 10/26/16) Uncoded Allergies: all ashley (Severe, SOB 07/13/16) Home Med List: Albuterol Sulfate (Proair Hfa) 8.5 GM HFA.AER.AD 1-2 PUF INH Q4-6 PRN PRN COPD (Reported) Aripiprazole (Abilify) 15 MG TABLET 15 MG PO 2200 clarify thoughts Aspirin (Ecotrin*) 81 MG TABLET. 1 TAB PO QAM HEART/BLOOD (Reported) Atorvastatin Calcium (Lipitor) 40 MG TABLET 1 TAB PO QPM CHOLESTEROL ( Reported) Azithromycin 500 MG TABLET 1 TAB PO DAILY copd . Budesonide/Formoterol Fumarate (Symbicort 160-4.5 Mcg Inhaler) 10.2 GM HFA.AER.AD 2 PUF INH BID COPD (Reported) Carbamazepine 100 MG TAB.CHEW 200 MG PO 0800,1700,2000 mood stabilization Ergocalciferol (Vitamin D2) (Vitamin D2) 50,000 UNIT CAPSULE 1 CAP PO QTHURS SUPPLEMENT (Reported) Fenofibrate Nanocrystallized (Fenofibrate) 145 MG TABLET 1 TAB PO DAILY CHOLESTEROL/TRIGLYCERIDES (Reported) Fluticasone Propionate 16 GM SPRAY.SUSP 2 SPRAY NASB DAILY ALLERGIES ( Reported) Folic Acid 1 MG TABLET 1 TAB PO QAM SUPPLEMENT (Reported) Furosemide 20 MG TABLET 1.5 TAB PO DAILY FLUID (Reported) Gabapentin 300 MG CAPSULE 300 MG PO Q4H PRN trigeminal neuralgia/neuropathy Levothyroxine Sodium 50 MCG TABLET 1 TAB PO DAILY AC THYROID (Reported) Linaclotide (Linzess) 145 MCG CAPSULE 1 CAP PO QAM CIC (Reported) [place] Carbonate 300 MG CAPSULE 600 MG PO QPM mood stabilization [place] Carbonate 300 MG CAPSULE 300 MG PO 0800 mood stabilization Meclizine HCl 12.5 MG TABLET 1 TAB PO TID PRN VERTIGO (Reported) Metformin HCl 1,000 MG TABLET 1 TAB PO BID DIABETES (Reported) Midodrine HCl 2.5 MG TABLET 1 TAB PO BID HEART (Reported) Midodrine HCl 2.5 MG TABLET 5 MG PO BID pots Pantoprazole Sodium (Protonix) 40 MG TABLET.DR 1 TAB PO DAILY GERD (Reported) Prednisone 10 MG TABLET 1 TAB PO DAILY COPD (Reported) Prednisone 10 MG TABLET 1 TAB PO SI copd take 4tablets on 10/30 take 3tablets on 10/31 and 11/01 take 2tablets on 11/02 and 11/03 then take 1tablet everday. Sertraline HCl 50 MG TABLET 150 MG PO 0800 anti-depressant Current Medications: Current Medications Sig/Ralph Start time Last Medication Dose Route Stop Time Status Admin Acetaminophen 650 MG Q6P PRN 10/26 1600 AC PO Albuterol Sulfate 3 ML EVERY 4 HRS/AWAKE 10/29 0800 AC 10/29 INH 0838 Albuterol Sulfate 3 ML EVERY 4 HRS/AWAKE .. 10/28 2245 AC INH Albuterol Sulfate 3 ML Q4P PRN 10/26 2215 DC 10/28 INH 2008 Albuterol Sulfate 2 PUF Q4-6 PRN PRN 10/26 1600 AC 10/28 INH 2227 Aripiprazole 15 MG 2200 10/26 2200 AC 10/28 PO 214 Aspirin 243 MG ONCE ONE 10/29 0030 DC 10/29 PO 10/29 0031 0034 Aspirin 243 MG .STK-MED ONE 10/29 0030 DC PO 10/29 0031 Aspirin Buffered 81 MG QAM 10/26 1600 AC 10/28 PO 0908 Atorvastatin Calcium 40 MG QPM 10/26 2200 AC 10/28 PO 2149 Azithromycin 250 MG DAILY 10/29 1000 AC PO 10/30 1001 Azithromycin 500 MG DAILY@1700 07 1700 DC 10/28 Sodium Chloride 250 ML IV 1619 Budesonide/ 2 PUF BID 10/26 2200 AC 10/28 Formoterol Fumarate INH 2156 Carbamazepine 200 MG 0800,1700,10/26 1700 AC 10/28 PO 2004 Enoxaparin Sodium 40 MG DAILY 10/26 1556 AC 10/28 SC 0908 Fenofibrate 145 MG DAILY 10/26 1600 AC 10/28 PO 0908 Fluticasone 2 SPRAY DAILY 10/26 1601 AC 10/28 Propionate TRUMAN 0909 Folic Acid 1 MG QAM 10/26 1601 AC 10/28 PO 0908 Furosemide 30 MG DAILY 10/26 1601 AC 10/28 PO 0908 Gabapentin 300 MG Q4P PRN 10/26 1615 AC 10/27 PO 2212 Ibuprofen 600 MG Q6P PRN 10/26 1600 AC PO Insulin Aspart 0 TIDAC/HS 10/26 1700 AC 10/29 SC 0815 Levothyroxine Sodium 0.05 MG DAILY AC 10/27 07 AC 10/29 PO 0652 [place] Carbonate 300 MG 0800 07/08 0800 AC 10/28 PO 0909 [place] Carbonate 600 MG QPM 10/26 2200 AC 10/28 PO 2149 Meclizine HCl 12.5 MG TID PRN 10/26 1615 AC 10/28 PO 0656 Methylprednisolone 40 MG Q12H 10/28 1900 DC 10/29 IV 0652 Metoclopramide HCl 10 MG Q6P PRN 10/28 0715 AC 10/28 PO 1619 Midodrine 5 MG BID 10/28 2200 AC 10/28 PO 2149 Midodrine 2.5 MG TID 10/27 1600 DC 10/28 PO 0908 Morphine Sulfate 2 MG ONCE ONE 10/29 0030 DC 10/29 IV 10/29 0031 0025 Omeprazole 40 MG DAILY AC 10/27 699 AC 10/29 PO 0652 Prednisone 40 MG DAILY 10/29 1000 AC PO Sertraline HCl 150 MG 0800 10/27 0800 AC 10/28 PO 0908 Trimethobenzamide HCl 200 MG 4 TIMES/DAY PRN 10/28 0715 AC 10/28 IM 1222 Review of Systems Comments 18 pt ros reviewed pertinent positives and negatives in chart Past History Travel History Traveled to [place] past 21 day No Medical History Neurological: dizziness, peripheral neuropathy, TIA, TRIGEMINAL NEURALGIA NEUROPATHY gait disturbance (uses a walker); ?neurological basis EENT: NONE Cardiovascular: angina (hx "atypical chest pain" ), hypertension, hyperlipidemia , HIGH TRYGLCERIDES recent cardiac catheterizations were negative for occlusive coronary artery disease PERICARDITIS Respiratory: asthma, bronchitis, obstructive sleep apnea, pneumonia, BIPAP Gastrointestinal: ACID REFLUX CONSTIPAT- CHRONIC/IDEOPA ABDOMINAL HERNIA Hepatic: CHOLELITHIASIS CHOLECYSTECTOMY Renal: NONE Musculoskeletal: R ANKLE FX AND REPAIR Psychiatric: anxiety, bipolar disease, depression, opioid dependence, substance abuse (possible benzo. 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 MOTHER (CHF, COPD). Psychosocial History Where Do You Live? Home Services at Home: Nursing Smoking Status: Former Smoker ETOH Use: denies use Illicit Drug Use: denies illicit drug use Functional Ability ADLs Independent: dressing, eating, toileting, bathing. Ambulation: independent IADLs Independent: shopping, housework, finances, food prep, telephone, transportation , medication admin. Exam & Diagnostic Data Last 24 Hrs of Vital Signs/I&O Vital Signs Date Time Temp Pulse Resp B/P B/P Pulse O2 O2 Flow FiO2 Mean Ox Delivery Rate 10/29 0841 93 Nasal 3.0L Cannula 10/29 0800 95 Nasal 3.0L Cannula 10/29 0702 98.2 55 18 126/74 97 Nasal Cannula 10/29 0012 97.6 66 18 138/80 96 BIPAP 10/29 0000 CPAP 10/28 2243 65 98 10/28 2200 98.0 65 18 138/80 95 Nasal 4.0L Cannula 10/28 2009 93 Nasal 4.0L Cannula 10/28 1600 Nasal 4.0L Cannula 10/28 1453 98.5 60 22 124/52 94 Nasal 3.0L Cannula Intake & Output 10/29 1600 10/29 0800 10/29 0000 Intake Total 100 730 Output Total 300 400 Balance -200 330 Intake, IV 250 Intake, Oral 100 480 Output, Urine 300 400 Physical Exam Other Physical Findings: gen awake and alert heent ncat cvs s1, s2 lungs bilteral rhonchi abd obese ext no edema Last 48 Hrs of Labs/Matthieu: Laboratory Tests 10/29/16 0710: Troponin I < 0.01 10/29/16 0100: Troponin I < 0.01 10/28/16 0733: CBC w Diff NO MAN DIFF REQ, RBC 4.20, MCV 92.3, MCH 30.1, RDW 13.3, MPV 9.1, Gran % 71.8, Lymphocytes % 20.4 L, Monocytes % 4.8, Eosinophils % 2.7, Basophils % 0.3, Absolute Granulocytes 8.1 H, Absolute Lymphocytes 2.3, Absolute Monocytes 0.5, Absolute Eosinophils 0.3, Absolute Basophils 0, PUBS MCHC 32.7 L 10/27/16 1000: Troponin I < 0.01 Assessment/Plan Impression/Plan: Impression 51 year old woman * dyspnea - POTS/syncope and exacerbation of COPD * SHIRIN Plan -cont pap tx -steroid taper -zithromax course -f/u cardiology -dc planning -dvt prophylaxis at all times -f/u in offcie Consult Acknowledgment - Thank you for your consult request.
--- NOTE | 2016-10-29 10:07 | PN- Cardiology ---
Subjective Subjective: Patient had an episode of chest discomfort overnight which resolved with morphine. The pain was an 8 out of 10 and was associated with severe coughing. It resolved within 45 minutes and she is now pain-free. Shortness of breath is improving. No further lightheadedness, dizziness, presyncope. Objective Vital Signs and I&Os Vital Signs Date Time Temp Pulse Resp B/P B/P Pulse O2 O2 Flow FiO2 Mean Ox Delivery Rate 10/29 840 93 Nasal 3.0L Cannula 10/30 799 95 Nasal 3.0L Cannula 10/29 0602 98.2 55 18 126/74 97 Nasal Cannula 10/29 0012 97.6 66 18 138/80 96 BIPAP 10/29 0000 CPAP 10/28 2243 65 98 10/28 2200 98.0 65 18 138/80 95 Nasal 4.0L Cannula 10/28 2008 93 Nasal 4.0L Cannula 10/28 1600 Nasal 4.0L Cannula 10/28 1453 98.5 60 22 124/52 94 Nasal 3.0L Cannula Intake & Output 10/29 0810/29 0000 10/28 1600 10/29 0700 10/28 0000 Intake Total 100 730 720 400 600 Output Total 300 400 600 Balance -200 330 120 400 600 Intake, IV 250 Intake, Oral 100 480 720 400 600 Output, Urine 300 400 600 Physical Exam: Gen: NAD HEENT: normal Lungs: Scattered wheezing, normal resp. effort Heart: RRR, S1, S2, no murmurs Abdomen: Soft, nontender, no masses Extremities: No clubbing, cyanosis, or edema. Neuro: Alert and oriented x 3, cranial nerves intact Current Medications: Current Medications Sig/Ralph Start time Last Medication Dose Route Stop Time Status Admin Acetaminophen 650 MG Q6P PRN 10/26 1600 AC PO Albuterol Sulfate 3 ML EVERY 4 HRS/AWAKE 10/30 799 AC 10/29 INH 0838 Albuterol Sulfate 3 ML EVERY 4 HRS/AWAKE .. 10/28 2244 AC INH Albuterol Sulfate 3 ML Q4P PRN 10/26 2214 DC 10/28 INH 2008 Albuterol Sulfate 2 PUF Q4-6 PRN PRN 10/26 1600 AC 10/28 INH 222 Aripiprazole 15 MG 2200 10/26 2199 AC 10/28 PO 2149 Aspirin 243 MG ONCE ONE 10/29 0030 DC 10/29 PO 10/29 0031 0034 Aspirin 243 MG .STK-MED ONE 10/29 0030 DC PO 10/29 0031 Aspirin Buffered 81 MG QAM 10/26 1600 AC 10/28 PO 0908 Atorvastatin Calcium 40 MG QPM 10/26 2200 AC 10/28 PO 2149 Azithromycin 250 MG DAILY 10/29 1000 AC PO 10/30 1001 Azithromycin 500 MG DAILY@1700 07 1700 DC 10/28 Sodium Chloride 250 ML IV 1619 Budesonide/ 2 PUF BID 10/26 2200 AC 10/28 Formoterol Fumarate INH 2156 Carbamazepine 200 MG 0800,1700,10/26 1700 AC 10/28 PO 2004 Enoxaparin Sodium 40 MG DAILY 10/26 1556 AC 10/28 SC 0908 Fenofibrate 145 MG DAILY 10/26 1600 AC 10/28 PO 0908 Fluticasone 2 SPRAY DAILY 10/26 1601 AC 10/28 Propionate TRUMAN 0909 Folic Acid 1 MG QAM 10/26 1601 AC 10/28 PO 0908 Furosemide 30 MG DAILY 10/26 1601 AC 10/28 PO 0908 Gabapentin 300 MG Q4P PRN 10/26 1615 AC 10/27 PO 2212 Ibuprofen 600 MG Q6P PRN 10/26 1600 AC PO Insulin Aspart 0 TIDAC/HS 10/26 1700 AC 10/29 SC 0815 Levothyroxine Sodium 0.05 MG DAILY AC 10/27 699 AC 10/29 PO 0652 [place] Carbonate 300 MG 0800 /08 0800 AC 10/28 PO 0909 [place] Carbonate 600 MG QPM 10/26 2200 AC 10/28 PO 2149 Meclizine HCl 12.5 MG TID PRN 10/26 1615 AC 10/28 PO 0656 Methylprednisolone 40 MG Q12H 10/28 1900 DC 10/29 IV 0652 Metoclopramide HCl 10 MG Q6P PRN 10/28 0715 AC 10/28 PO 1619 Midodrine 5 MG BID 10/28 2200 AC 10/28 PO 2149 Midodrine 2.5 MG TID 10/27 1600 DC 10/28 PO 0908 Morphine Sulfate 2 MG ONCE ONE 10/29 0030 DC 10/29 IV 10/29 0031 0025 Omeprazole 40 MG DAILY AC 10/27 699 AC 10/29 PO 0652 Prednisone 40 MG DAILY 10/29 1000 AC PO Sertraline HCl 150 MG 0800 10/27 0800 AC 10/28 PO 0908 Trimethobenzamide HCl 200 MG 4 TIMES/DAY PRN 10/28 0715 AC 10/28 IM 1222 Results Last 48 Hrs of Labs/Mics: Laboratory Tests 10/29/16 0710: Troponin I < 0.01 10/29/16 0100: Troponin I < 0.01 10/28/16 0733: CBC w Diff NO MAN DIFF REQ, RBC 4.20, MCV 92.3, MCH 30.1, RDW 13.3, MPV 9.1, Gran % 71.8, Lymphocytes % 20.4 L, Monocytes % 4.8, Eosinophils % 2.7, Basophils % 0.3, Absolute Granulocytes 8.1 H, Absolute Lymphocytes 2.3, Absolute Monocytes 0.5, Absolute Eosinophils 0.3, Absolute Basophils 0, PUBS MCHC 32.7 L Recent Imaging Studies: EKG tracing is independently reviewed, and reveals normal sinus rhythm at 56, right ventricular hypertrophy, nonspecific T-wave abnormality Echocardiogram 10/28/16: 1. This was a technically difficult examination. 2. Mild aortic sclerosis is present with no stenosis or insufficiency. 3. Mitral leaflet thickening is present with minimal mitral insufficiency 4. A small posterior pericardial effusion is present. 5. The left ventricular chamber size and systolic function are normal. Mild concentric hypertrophy is present. 6. The right heart structures were not optimally assessed on this study. The RV systolic pressure could not be assessed. Assessment/Plan Assessment/Plan Assessment: 1. Syncope/reported pots syndrome-the patient's symptoms are most consistent with blood pressure related syncopal episode. No evidence of arrhythmias on the monitor. 2. COPD/sleep apnea 3. History of hypertension 4. History of hyperlipidemia 5. Normal left ventricular function with small posterior pericardial effusion on echocardiogram. Plan: * Continue midodrine 50 g by mouth twice a day * Continue other cardiac medications. Continue telemetry? Yes
--- NOTE | 2016-10-29 10:30 | NUR ---
RESTING ROOM AIR 88%. AMBULATORY O2 SAT 83%. UNABLE TO CATCH BREATH. FEELS NAUSEOUS. MD AWARE.
--- NOTE | 2016-10-29 11:19 | Discharge Summary ---
Visit Information Visit Dates Admission Date: 10/27/16 Discharge Date: 10/29/16 Hospital Course Course Attending Physician: LINCOLN VELAZQUEZ MD Primary Care Physician: [facility] Course: Ms. Virgen is a 51 yo F with a PMH of COPD, HTN, HLD, s/p cath (04/2016), SHIRIN , Asthma, TIA, DM, Hypothyroidism, anxiety/bipolar disorder presented to the ED after Dr. Solano office visit. At the office she reported SOB and CP, O2 sat 87 on 3L oxygen, she was advised to go to the ED. In the ED she stated that her SOB was present during exertion associated with a cough but denies sputum production , fever, chills but had a headache at the time. In ED: IV methylpred 125mg, Albuterol, Ipratropium, Lasix 40mg, lactic acid-nl, BNP-129, blood cultures negative, urine tox-pos for benzodiazepine. CBC notable for wbc-14.4 Patient has two syncopal episodes on 10/27/16 and 10/28/16. Patient states she had an unwitnessed fall on 10/27/16 during her hospital stay while trying to get OOB to chair. Rapid response was called about 9:15 am. Patient reported dizziness and lightheadedness. Patient was then stabilized. Stat TROP, ECG, CT head and cervical spine was ordered and came back negative. Her orthostats were negative and ECHO-no wall abnormalities. CXR: No acute pneumonia or alveolar edema ECG: [facility] ECHO: Mild aortic sclerosis, minimal mitral insufficiency, small, posterior pericardial effusion, RV not well visualized Head CT/CT cervical spine: No acute fracture. Possible multilobar pneumonia or cardiogenic pulmonary edema 1. Acute COPD exacerbation * Monitored on telemetry * Monitored orthostat vitals * Maintained O2 sat>90% * Total respiratory care * DUONEBS * IV steroids switched to 40mg PO q12 * IV AZ switched to 500mg PO * Dr. Solano was notified, will follow outpatient 2. Acute on chronic respiratory failure * Monitored on telemetry * Maintained O2 sat>90%, oxygen PRN * Total respiratory care 3. Acute coronary syndrome * Serial troponins and ekg -ruled out acute coronary syndrome. * Continued aspirin 81 mg. * Morphine IVP given * Follow business integration manager outpatient 4. Syncope/POTS syndrome: Patient had an episode of syncope 10/27/2016 and 10/28/2016 * Telemetry monitored for arrhythmias * Midodrine was increased from 2.5mg TID to 5mg BID for postural hypotension * Troponin and EKGs have been normal * CT scan of the head and cervical spine showed no fracture/dislocation * Echo-Mild aortic sclerosis, minimal mitral insufficiency, small, post pericardial effusion, RV not well visualized * Monitored orthostat vitals * Follow up with business integration manager outpatient 5. Diabetes mellitus * Finger checks * Insulin sliding scale * Continue home meds outpatient 6. Hypothyroidism * Continued home medication levothyroxine 50 g daily 7. GERD * Continued omeprazole 40 daily 8. Obstructive sleep apnea * Continued CPAP QHS 9. Hypertriglyceridemia * Continued home medication Fenofibrate. 10. Hyperlipidemia * Continue Lipitor 40 11. Bilateral lower extremity swelling * Continued home medications Lasix 30 mg daily. 12. Anxiety/bipolar/depression * Continued home medication lithium, Abilify, carbamazepine, sertraline 13. Trigeminal neuralgia * Continued home medications gabapentin 14. vertigo * Continued meclizine 12.5 mg when necessary tid Allergies: Coded Allergies: codeine (Severe, ITCH 10/26/16) lemon (Severe, SOB 10/26/16) melatonin (Severe, HIVES/RASH 10/26/16) PER . -CG 07/16/16 propranolol (Severe, SHOCK PER PT 10/26/16) Uncoded Allergies: all ashley (Severe, SOB 07/13/16) Disposition Summary Disposition Principal Diagnosis: COPD exacerbation Additional Diagnosis: Syncope Discharge Disposition: home or self care Discharge Instructions General Discharge Information Code Status: Full Code Patient's Diet: Regular Patient's Activity: As tolerated Follow-Up Instructions/Appts: Follow up with Dr. Solano within 1-2 weeks after discharge Follow up with Online Advertising Director within 1-2 weeks after discharge Medications at Discharge Discharge Medications: Stop taking the following medications: Midodrine HCl (Midodrine HCl) 2.5 MG TABLET ORAL TWICE DAILY Qty = 90 Continue taking these medications: Levothyroxine Sodium (Levothyroxine Sodium) 50 MCG TABLET 1 Tablet ORAL DAILY BEFORE BREAKFAST Comments: GIVEN 10/29/16 @ 0700 AM Atorvastatin Calcium (Lipitor) 40 MG TABLET 1 Tablet ORAL Every night Comments: GIVEN 10/28/16 @ 950 PM Aspirin (Ecotrin*) 81 MG TABLET.DR 1 Tablet ORAL Every Morning Comments: GIVEN 10/29/16 @ 1000 AM Folic Acid (Folic Acid) 1 MG TABLET 1 Tablet ORAL Every Morning Comments: GIVEN 10/29/16 @ 1000 AM Linaclotide (Linzess) 145 MCG CAPSULE 1 Capsule ORAL Every Morning Comments: NOT GIVEN IN HOSPITAL Ergocalciferol (Vitamin D2) (Vitamin D2) 50,000 UNIT CAPSULE 1 Capsule ORAL EVERY SATURDAY Comments: NOT GIVEN IN HOSPITAL Albuterol Sulfate (Proair Hfa) 8.5 GM HFA.AER.AD 1-2 Puff Inhale through mouth EVERY 4-6 HOURS NEEDED as needed for COPD Comments: GIVEN 10/28/16 @ 1030 PM Budesonide/Formoterol Fumarate (Symbicort 160-4.5 Mcg Inhaler) 10.2 GM HFA.AER.AD 2 Puff Inhale through mouth TWICE DAILY Qty = 10 Comments: GIVEN 10/28/16 @ 950 PM Fluticasone Propionate (Fluticasone Propionate) 16 [place] SPRAY.SUSP 2 [place] Both sides of nose DAILY Qty = 16 Comments: GIVEN 10/29/16 @ 1000 AM Pantoprazole Sodium (Protonix) 40 MG TABLET.DR 1 Tablet ORAL DAILY Comments: ALTERNTAIVE MED GIVEN WHILE IN HOSPITAL ([facility]) GIVEN 10/29/16 @ 0700 AM Metformin HCl (Metformin HCl) 1,000 MG TABLET 1 Tablet ORAL TWICE DAILY Qty = 90 Comments: NOT GIVEN IN HOSPITAL Fenofibrate Nanocrystallized (Fenofibrate) 145 MG TABLET 1 Tablet ORAL DAILY Qty = 85 Comments: GIVEN 10/29/16 @ 1000 AM Furosemide (Furosemide) 20 MG TABLET 1.5 Tablet ORAL DAILY Qty = 90 Comments: GIVEN 10/29/16 @ 1000 AM Carbamazepine (Carbamazepine) 100 MG TAB.CHEW 200 Milligram ORAL 0800,1700,2000 Qty = 42 Comments: GIVEN 10/29/16 @ 1000 AM Gabapentin (Gabapentin) 300 MG CAPSULE 300 Milligram ORAL Q4H as needed for trigeminal neuralgia/neuropathy Qty = 42 Comments: GIVEN 10/27/16 @ 1000 PM Sertraline HCl (Sertraline HCl) 50 MG TABLET 150 [place] ORAL DAILY @8 AM Qty = 42 Comments: GIVEN 10/29/16 @ 1000 AM Aripiprazole (Abilify) 15 MG TABLET 15 Millig[place] ORAL 2200 Qty = 14 Comments: GIVEN 10/28/16 @ 950PM [place] Carbonate ([place] Carbonate) 300 MG CAPSULE 300 Millig[place] ORAL DAILY @8 AM Qty = 14 Comments: GIVEN 10/29/16 @ 1000 AM [place] Carbonate ([place] Carbonate) 300 MG CAPSULE 600 Milligram ORAL Every night Qty = 28 Comments: GIVEN 10/28/16 @ 950 PM Prednisone (Prednisone) 10 MG TABLET 1 Tablet ORAL DAILY Comments: GIVEN 10/29/16 @ 1000 AM Meclizine HCl (Meclizine HCl) 12.5 MG TABLET 1 Tablet ORAL THREE TIMES DAILY as needed for VERTIGO Comments: GIVEN 10/28/16 @ 0700 AM Start taking the following new medications: Azithromycin (Azithromycin) 500 MG TABLET 1 Tablet ORAL DAILY Qty = 1 No Refills Instructions: . Comments: GIVEN 10/29/16 @ 1000 AM Midodrine HCl (Midodrine HCl) 2.5 MG TABLET 5 [place] ORAL TWICE DAILY Qty = 30 No Refills Comments: GIVEN 10/29/16 @ 1000 AM Prednisone (Prednisone) 10 MG TABLET 1 Tablet ORAL See Instructions Qty = 30 No Refills Instructions: take 4tablets on 10/30 take 3tablets on 10/31 and 11/01 take 2tablets on 11/02 and 11/03 then take 1tablet everday. Comments: GIVEN 10/29/16 @ 1000 AM Copies To: KENNY STEVENS D.O.; Darrel MOTA MD; NANCY SOLANO MD
== END 2016-10-29 11:07 | disposition home health service (06) | DRG 189 ==
LOC: ERH 12:01 → ERHI 15:29 → ENRESERV 16:15 → ENTRNSPT 16:58 → 1NO 17:26 → CMPTRNSPT 17:33 → 1NO 10-27 10:56 → ENPENDDIS 10-29 10:13 → 1NO 10-29 11:07
PROVIDERS: Emergency Medicine; Hospitalist; Student in an Organized Health Care Education/Training Program; ADMIT Internal Medicine
PROC: 5A09357 Assistance with Respiratory Ventilation, Less than 24 Consecutive Hours, Continuous Positive Airway Pressure (ICD-10-PCS; principal; 2016-10-27)
DX: J96.20 Acute and chronic respiratory failure, unspecified whether with hypoxia or hypercapnia (principal); E11.42 Type 2 diabetes mellitus with diabetic polyneuropathy; Z99.81 Dependence on supplemental oxygen; J44.1 Chronic obstructive pulmonary disease with (acute) exacerbation; F11.20 Opioid dependence, uncomplicated; Z68.41 Body mass index [BMI] 40.0-44.9, adult; I10 Essential (primary) hypertension; G47.33 Obstructive sleep apnea (adult) (pediatric); E03.9 Hypothyroidism, unspecified; G50.0 Trigeminal neuralgia; F31.9 Bipolar disorder, unspecified; F41.9 Anxiety disorder, unspecified; R42 Dizziness and giddiness; K21.9 Gastro-esophageal reflux disease without esophagitis; I44.5 Left posterior fascicular block; E78.1 Pure hyperglyceridemia; I95.1 Orthostatic hypotension; R07.89 Other chest pain; M79.89 Other specified soft tissue disorders; E66.9 Obesity, unspecified; E78.5 Hyperlipidemia, unspecified; Z79.84 Long term (current) use of oral hypoglycemic drugs; Z86.73 Personal history of transient ischemic attack (TIA), and cerebral infarction without residual deficits; Z85.43 Personal history of malignant neoplasm of ovary
CPT/HCPCS: 1NSP; 36415; 80307; 81001; 82436; 87040; 87070; 93005; 93010; 93306; 94799; 96374; 96375; J0456; J1650; J1940; J2405; J2920; J2930; J3250; J3490; J7040

== ENCOUNTER 2017-05-25 10:14 | Inpatient (IN) | payer OTHER, MEDICARE ==
[~2017-05-25] VITALS: Ht 157.5 cm; Wt 82.1 kg
[~2017-05-25 10:14] MED LIST changes: +ALPRAZOLAM1 M2 PO; +BACLOFEN10 M1 PO; +DICYCLOMINE HCL20 M1 PO; +LIDODERM1 EACH EXT; +LITHIUM CARBON300 M5 PO; +MIDODRINE HCL10 M1 PO; +MIDODRINE HCL2.5 M1 PO; +NICOTINE PATCH1 EAC2 TOP; +NORTHERA100 M1 PO; +PREDNISONE5 M1 PO; +TRAZODONE HCL50 M1 PO; +ZITHROMAX250 M2 PO
--- NOTE | 2017-05-25 10:56 | ED DYSPNEA/ASTHMA COMPLAINT ---
History of Present Illness General Chief Complaint: Dyspnea (COPD, CHF, Other) Stated Complaint: SOB HX OF COPD Source: patient, old records, EMS Exam Limitations: no limitations Vital Signs & Intake/Output Vital Signs & Intake/Output Vital Signs Date Time Temp Pulse Resp B/P B/P Pulse O2 O2 Flow FiO2 Mean Ox Delivery Rate 05/25 1115 97 Nasal 2.0L Cannula 05/25 1100 93 Nasal 4.0L Cannula 05/25 1045 93 Nasal 4.0L Cannula 05/25 1023 92 Nasal 4.0L Cannula 05/25 1021 100.2 90 26 167/72 77 Room Air Allergies Coded Allergies: codeine (Severe, ITCH 10/26/16) lemon (Severe, SOB 10/26/16) melatonin (Severe, HIVES/RASH 10/26/16) PER . -CG 07/16/16 propranolol (Severe, SHOCK PER PT 10/26/16) Reconcile Medications Albuterol Sulfate (Proair Hfa) 90 MCG HFA.AER.AD 2 PUF INH Q4-6 PRN PRN COPD (Reported) Aspirin (Ecotrin*) 81 MG TABLET.DR 1 TAB PO QAM HEART/BLOOD (Reported) Atorvastatin Calcium (Lipitor) 40 MG TABLET 1 TAB PO QPM CHOLESTEROL ( Reported) Budesonide/Formoterol Fumarate (Symbicort 160-4.5 Mcg Inhaler) 10.2 GM HFA.AER.AD 2 PUF INH BID COPD (Reported) Droxidopa (Northera) 100 MG CAPSULE 6 CAP PO TID POTS (Reported) Ergocalciferol (Vitamin D2) (Vitamin D2) 50,000 UNIT CAPSULE 1 CAP PO QTHURS SUPPLEMENT (Reported) Eszopiclone (Lunesta) 3 MG TABLET 1 TAB PO QHS SLEEP (Reported) Fenofibrate Nanocrystallized (Fenofibrate) 145 MG TABLET 1 TAB PO DAILY CHOLESTEROL/TRIGLYCERIDES (Reported) Fluticasone Propionate 16 GM SPRAY.SUSP 2 SPRAY NASB DAILY ALLERGIES ( Reported) Folic Acid 1 MG TABLET 1 TAB PO QAM SUPPLEMENT (Reported) Levothyroxine Sodium 50 MCG TABLET 1 TAB PO DAILY AC THYROID (Reported) Linaclotide (Linzess) 290 MCG CAPSULE 1 CAP PO DAILY CIC (Reported) [place] Carbonate 300 MG CAPSULE 600 MG PO AT BEDTIME bipolar depression [place] Carbonate 300 MG CAPSULE 1 TAB PO 1000 bipolar d/o Meclizine HCl 12.5 MG TABLET 1 TAB PO TID PRN VERTIGO (Reported) Metformin HCl 1,000 MG TABLET 0.5 TAB PO BID DIABETES (Reported) Midodrine HCl 10 MG TABLET 1 TAB PO BID POTS (Reported) Pantoprazole Sodium (Protonix) 40 MG TABLET.DR 1 TAB PO DAILY GERD (Reported) Ropinirole HCl (Requip) 1 MG TABLET 1.5 TAB PO QPM RLS (Reported) Sertraline HCl 50 MG TABLET 150 MG PO 0800 anti-depressant Core Measure Meds Pre-Hospital aspirin Triage Note: PT TO ED C/O SOB SINCE YESTERDAY. STATES WORSE THIS AM. H/O COPD, WEARS CPAP AT NIGHT. PT BROUGHT TO ROOM 10, RA SATS 77%. PT PLACED ON 4L NC, SATS UP TO 92%. C/O CHEST PAIN, WORSE WITH COUGHING. EKG IN PROGRESS. AWAITING PROVIDER EVAL. Triage Nurses Notes Reviewed? yes Onset: Morning Duration: hour(s):, constant, continues in ED, getting worse Timing: recent history Severity: severe Activities at Onset: none Prior Episodes/Possible Cause: frequent episodes Modifying Factors: Worsens With: movement. Associated Symptoms: cough, chest pain, wheezing, weakness LMP (ages 10-50): post menopausal : No Patient currently breastfeeds: No HPI: 1 day prior to admission patient complains of increasing shortness of breath nonproductive cough dysuria exertion chest pain with cough. She denies fever chills nausea vomiting diarrhea abdominal pain headache dysuria rash bleeding. Past History Travel History Traveled to [place] past 21 day No Medical History Any Pertinent Medical History? see below for history Neurological: dizziness, peripheral neuropathy, TIA, TRIGEMINAL NEURALGIA NEUROPATHY gait disturbance (uses a walker); ?neurological basis EENT: NONE Cardiovascular: angina (hx "atypical chest pain" ), hypertension, hyperlipidemia , HIGH TRYGLCERIDES recent cardiac catheterizations were negative for occlusive coronary artery disease PERICARDITIS Respiratory: pneumonia, COPD, OBSSLEEP BIPAP Gastrointestinal: ACID REFLUX CHRONIC/IDEOPA ABDOMINAL HERNIA Renal: NONE Musculoskeletal: R ANKLE FX AND REPAIR Psychiatric: anxiety, bipolar disease, depression, opioid dependence, substance abuse (possible benzo. and opioid) Endocrine: diabetes, HYPOTHYROIDISM Blood Disorders: NONE Cancer(s): ovarian cancer, SARCOMA L LEG RETAIL GREETER/Reproductive: OVARIAN CA TOTAL HYSTERECTOMY History of MRSA: No History of VRE: No History of CDIFF: No Influenza Vaccine: 01/11/17 Surgical History Surgical History: hysterectomy, ABD HERNIA REPAIR X4 HYSTERECTOMY CHOLECYSTECTOMY R ANKLE SX POST FX SARCOMA REMOVAL L LEG PERICARDIAL WINDOW Psychosocial History Who do you live with Patient/Self Services at Home Home Health Aide, Nursing What is your primary language Latvian Tobacco Use: Quit <30 days ago ETOH Use: denies use Illicit Drug Use: denies illicit drug use Family History Family History, If Any: MOTHER FATHER (CAD). MOTHER (CHF, COPD). Hx Contributory? No Review of Systems Review of Systems Constitutional: Reports: see HPI, malaise. EENTM: Reports: no symptoms. Respiratory: Reports: see HPI, cough, short of breath, wheezing. Denies: sputum production. Cardiovascular: Reports: see HPI, chest pain. GI: Reports: no symptoms. Genitourinary: Reports: no symptoms. Musculoskeletal: Reports: no symptoms. Skin: Reports: no symptoms. Neurological/Psychological: Reports: no symptoms. Hematologic/Endocrine: Reports: no symptoms. Immunologic/Allergic: Reports: no symptoms. All Other Systems: Reviewed and Negative Physical Exam Physical Exam General Appearance: well developed/nourished, alert, awake, anxious, severe distress, obese Head: atraumatic, normal appearance Eyes: Bilateral: normal appearance, PERRL, EOMI. Ears, Nose, Throat: normal pharynx, normal ENT inspection, hearing grossly normal, moist mucus membranes Neck: normal inspection, supple, full range of motion, no midline tenderness Respiratory: chest non-tender, decreased breath sounds, accessory muscle use, wheezing, respiratory distress Cardiovascular: regular rate/rhythm, normal peripheral pulses, norml femoral pulses equa Peripheral Pulses: 4+ carotid (R), 4+ carotid (L) Gastrointestinal: normal bowel sounds, soft, non-tender, no organomegaly Extremities: normal inspection, normal capillary refill, normal range of motion, no edema, no ligament instability Neurologic/Psych: no motor/sensory deficits, awake, alert, oriented x 3, normal gait, normal mood/affect, management professionals II-XII nml as tested Skin: intact, normal color, warm/dry Lymphatic: no anterior cervical seema Core Measures ACS in differential dx? No CVA/TIA Diagnosis No Sepsis Present: No Sepsis Focused Exam Completed? No Progress Differential Diagnosis: bronchitis, CHF, COPD, pneumonia Plan of Care: Orders Procedure Date/time Status CBC WITHOUT DIFFERENTIAL 05/26 0600 Active BASIC ELECTROLYTES PLUS BUN&CR 05/26 0600 Active Regular Diet 05/25 L Complete Consistent Carbohydrate 2 05/25 D Active Pathway - chart 05/25 1432 Active House Staff 05/25 1432 Active OXYGEN SETUP (GEN) 05/25 1329 Active Saline Lock 05/25 1329 Active Admit to inpatient 05/25 1329 Active Vital Signs 05/25 1329 Active Activity/Ambulation 05/25 1329 Active RAPID VIRAL INFLUENZA A 05/25 1329 Complete BLOOD CULTURE 05/25 1329 Active Code Status 05/25 1329 Active Patient Data 05/25 1304 Active ARTERIAL BLOOD GAS (GEN) 05/25 1035 Active TROPONIN LEVEL 05/25 1035 Complete MAGNESIUM 05/25 1035 Complete COMPREHENSIVE METABOLIC PANEL 05/25 1035 Complete CBC WITHOUT DIFFERENTIAL 05/25 1035 Complete EKG 05/25 1021 Active Current Medications Sig/Ralph Start time Last Medication Dose Stop Time Status Admin Azithromycin 500 MG DAILY 05/26 1000 UNVr (Zithromax) Dextrose/Water 250 ML (D5W) Insulin Aspart 0 TIDAC 05/25 1700 UNVr (NovoLOG) Insulin Aspart 0 TIDAC 05/25 1700 UNVr (NovoLOG) Acetaminophen 650 MG Q6P PRN 05/25 1445 UNVr (Tylenol) Ibuprofen 400 MG Q6P PRN 05/25 1445 UNVr (Motrin) Oxycodone/ 2 TAB Q6P PRN 05/25 1445 CANr Acetaminophen (Percocet) Enoxaparin Sodium 40 MG DAILY 05/25 1431 UNVr (Lovenox) Azithromycin 500 MG ONCE ONE 05/25 1400 AC 05/25 (Zithromax) 05/25 1459 1435 Dextrose/Water 250 ML (D5W) Laboratory Tests 05/25/17 1125: Anion Gap 14, Estimated GFR > 60, BUN/Creatinine Ratio 26.7 H, Glucose 182 H, Calcium 10.1, Magnesium 1.7, Total Bilirubin 0.7, AST 26, ALT 30, Alkaline Phosphatase 40, Troponin I < 0.01, Total Protein 7.0, Albumin 4.5, Globulin 2.5, Albumin/Globulin Ratio 1.8, CBC w Diff NO MAN DIFF REQ, RBC 4.72, MCV 86.4, MCH 28.4, MCHC 32.8 L, RDW 14.1, MPV 8.9, Gran % 87.6 H, Lymphocytes % 7.9 L, Monocytes % 3.6, Eosinophils % 0.5, Basophils % 0.4, Absolute Granulocytes 7.6 H, Absolute Lymphocytes 0.7 L, Absolute Monocytes 0.3, Absolute Eosinophils 0, Absolute Basophils 0 05/25/17 1045: Bicarbonate Actual 25, Mixed VBG pH 7.39, Mixed VBG pCO2 43, Mixed VBG O2 Saturation 47 H, Carboxyhemoglobin 0.2 L, O2 Concentration % 4L, O2 Delivery Method NC, Phlebotomy Draw Site LEFT RADIAL Microbiology 05/25 1424 BLOOD: Blood Culture - RECD 05/25 1400 NASOPHARYN: Influenza Virus A & B Rapid Smear - COMP 05/25 1329 BLOOD: Blood Culture - ORD Diagnostic Imaging: Viewed by Me: Radiology Read. Discussed w/RAD: Radiology Read. CXR Impression: 1. Above findings are consistent with acute high-grade distal small bowel obstruction, perhaps related to an adhesion. Associated mesenteric edema/free fluid and stranding is noted. No evidence of bowel perforation is seen. 2. Splenomegaly with adenopathy in the mesentery, periportal and peripancreatic regions and in the groins, consistent with patient's history of T -cell lymphoma. 3. Hepatic steatosis. 4. Atrophic and fat infiltrated pancreas. Initial ED EKG: normal axis, normal intervals, normal p-waves, normal QRS complex, normal sinus rhythm, no ST T wave changes Prior EKG: unchanged Rhythm Strip: normal sinus rhythm Departure Departure Disposition: STILL A PATIENT Condition: Stable Clinical Impression Primary Impression: COPD with acute exacerbation Secondary Impressions: Pneumonia Qualifiers: Pneumonia type: due to unspecified organism Laterality: unspecified laterality Lung location: unspecified part of lung Qualified Code: J18.9 - Pneumonia, unspecified organism Referrals: Zakia Castellon DO (PCP/Family) Departure Forms: Customer Survey General Discharge Information Admission Note Spoke With: Christina Norton MD Documentation of Exam: Documentation of any treatments & extenuating circumstances including Concerns Regarding Discharge (functional status, medication knowledge or non-compliance, living conditions, etc.) that warrant an admission rather than observation: Supplemental oxygen serial beta agonist nebs and IV steroids IV antibiotics follow cultures medication adjustment continuing care discharge planning Critical Care Note Critical Care Note Critical Care Time: non-applicable
[2017-05-25 11:36] LABS: ABSOLUTE BASOPHIL COUNT 0 /CUMM (0.0-0.2); ABSOLUTE EOSINOPHIL COUNT 0 /CUMM (0.0-0.7); ABSOLUTE GRANULOCYTE CT 7.6 /CUMM (1.4-6.5); ABSOLUTE LYMPH COUNT 0.7 /CUMM (1.2-3.4); ABSOLUTE MONOCYTE COUNT 0.3 /CUMM (0.10-0.60); BASOPHIL % 0.4 % (0.0-2.0); EOSINOPHIL % 0.5 % (0-5); GRANULOCYTE % 87.6 % (42.2-75.2); HEMATOCRIT 40.7 % (37-47); MEAN CORPUSCULAR HGB 28.4 PG (27.0-31.0); MEAN CORPUSCULAR HGB CONC 32.8 G/DL (33.0-37.0); MEAN CORPUSCULAR VOLUME 86.4 FL (81.0-99.0); MEAN PLATELET VOLUME 8.9 FL (7.4-10.4); PLATELET COUNT 263 /CUMM (130-400); RBC DISTRIBUTION WIDTH 14.1 % (11.5-14.5); RED BLOOD CELL CT 4.72 /CUMM (4.20-5.40); WHITE BLOOD CELL COUNT 8.7 /CUMM (4.8-10.8)
[2017-05-25] MEDS ORDERED: LINZESS290 MC1 PO (12:18)
[2017-05-25] MEDS ORDERED: LUNESTA3 M1 PO (12:19)
[2017-05-25] MEDS ORDERED: REQUIP1 M1 PO (12:20)
--- NOTE | 2017-05-25 13:15 | RADIOLOGY REPORT ---
EXAMINATION: CR PORTABLE CHEST CLINICAL INFORMATION: COPD with cough. Shortness of breath. Wheezing. Rhonchi. Presumptive diagnosis of pneumonia. COMPARISON: Chest x-ray dated 01/15/2017. CTA of the chest dated 01/07/2017. TECHNIQUE: Portable AP semierect view of the chest was obtained. FINDINGS: The cardiomediastinal silhouette is borderline normal in size. Lungs bilaterally are symmetrically expanded with diffuse perihilar reticular opacities seen with vascular indistinctness, raising the suspicion of interstitial edema versus diffuse atypical or viral pneumonitis. Some linear subsegmental atelectatic changes seen in the left midlung. There may be a trace amount of fluid in the right minor fissure. Lung apices are partially obscured by the patient's chin. No pneumothorax is seen. Multilevel mild degenerative changes as seen in the spine. IMPRESSION: Above findings may be related to interstitial edema versus diffuse atypical pneumonitis or viral pneumonitis. Close clinical correlation is requested.
--- NOTE | 2017-05-25 14:04 | History & Physical ---
Anthony Brown 05/25/17 1404: General Information and HPI MD Statement: I have seen and personally examined DAIJA DONAHUE and documented this H&P. The patient is a 51 year old F who presented with a patient stated chief complaint of [cough]. Source of Information: patient Exam Limitations: no limitations History of Present Illness: Ms. Donahue, is a 51-year-old female with significant past medical history of COPD [on 2 L of oxygen at night with CPAP], coronary artery disease [40% LAD stenosis, [id number]], orthostatic hypotension, obstructive sleep apnea [ compliant with her CPAP, follows Dr. Wall], diabetes, pericarditis status post pericardial window, bipolar depression, restless leg syndrome, TIA, hypothyroidism, and recurrent supratentorial syncopal episodes. She presents to the hospital emergency department with complaints of dyspnea and cough. Upon initial evaluation in the ED, see was saturating in the high 70s on room air. With 4 L of oxygen via nasal cannula she corrected to the low 90s. She states that her symptoms started on Saturday with a cough. The cough was nonproductive in nature. On , she developed a fever which she measured to be 101, and her coughing worsened. She also developed chills and dyspnea. She tried to sleep all and Saturday however did not improve at which point she presented today. She offers no other complaints including myalgias, arthralgias, sneezing, rhinorrhea, headache, lightheadedness, chest pain, abdominal pain, change in vision or hearing. Of note, she denies any sick contacts. She recently quit smoking approximately 3 weeks ago. She smoked half a pack per day for 30 years approximately. Allergies/Medications Allergies: Coded Allergies: codeine (Severe, ITCH 10/26/16) lemon (Severe, SOB 10/26/16) melatonin (Severe, HIVES/RASH 10/26/16) PER . -CG 07/16/16 propranolol (Severe, SHOCK PER PT 10/26/16) Home Med list Albuterol Sulfate (Proair Hfa) 90 MCG HFA.AER.AD 2 PUF INH Q4-6 PRN PRN COPD (Reported) Aspirin (Ecotrin*) 81 MG TABLET.DR 1 TAB PO QAM HEART/BLOOD (Reported) Atorvastatin Calcium (Lipitor) 40 MG TABLET 1 TAB PO QPM CHOLESTEROL ( Reported) Budesonide/Formoterol Fumarate (Symbicort 160-4.5 Mcg Inhaler) 10.2 GM HFA.AER.AD 2 PUF INH BID COPD (Reported) Droxidopa (Northera) 100 MG CAPSULE 6 CAP PO TID POTS (Reported) Ergocalciferol (Vitamin D2) (Vitamin D2) 50,000 UNIT CAPSULE 1 CAP PO QTHURS SUPPLEMENT (Reported) Eszopiclone (Lunesta) 3 MG TABLET 1 TAB PO QHS SLEEP (Reported) Fenofibrate Nanocrystallized (Fenofibrate) 145 MG TABLET 1 TAB PO DAILY CHOLESTEROL/TRIGLYCERIDES (Reported) Fluticasone Propionate 16 GM SPRAY.SUSP 2 SPRAY NASB DAILY ALLERGIES ( Reported) Folic Acid 1 MG TABLET 1 TAB PO QAM SUPPLEMENT (Reported) Levothyroxine Sodium 50 MCG TABLET 1 TAB PO DAILY AC THYROID (Reported) Linaclotide (Linzess) 290 MCG CAPSULE 1 CAP PO DAILY CIC (Reported) [place] Carbonate 300 MG CAPSULE 600 MG PO AT BEDTIME bipolar depression Hamill Carbonate 300 MG CAPSULE 1 TAB PO 1000 bipolar d/o Meclizine HCl 12.5 MG TABLET 1 TAB PO TID PRN VERTIGO (Reported) Metformin HCl 1,000 MG TABLET 0.5 TAB PO BID DIABETES (Reported) Midodrine HCl 10 MG TABLET 1 TAB PO BID POTS (Reported) Pantoprazole Sodium (Protonix) 40 MG TABLET.DR 1 TAB PO DAILY GERD (Reported) Ropinirole HCl (Requip) 1 MG TABLET 1.5 TAB PO QPM RLS (Reported) Sertraline HCl 50 MG TABLET 150 MG PO 0800 anti-depressant Compliance With Home Meds: GOOD Past History Travel History Traveled to [place] past 21 day No Medical History Neurological: dizziness, peripheral neuropathy, TIA, TRIGEMINAL NEURALGIA NEUROPATHY gait disturbance (uses a walker); ?neurological basis EENT: NONE Cardiovascular: angina (hx "atypical chest pain" ), hypertension, hyperlipidemia , HIGH TRYGLCERIDES recent cardiac catheterizations were negative for occlusive coronary artery disease PERICARDITIS Respiratory: pneumonia, COPD, OBSSLEEP BIPAP Gastrointestinal: ACID REFLUX CHRONIC/IDEOPA ABDOMINAL HERNIA Renal: NONE Musculoskeletal: R ANKLE FX AND REPAIR Psychiatric: anxiety, bipolar disease, depression, opioid dependence, substance abuse (possible benzo. 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 MOTHER (CHF, COPD). Psychosocial History Who Do You Live With? self Services at Home: Home Health Aide, Nursing Primary Language: French ETOH Use: denies use Illicit Drug Use: denies illicit drug use Functional Ability ADLs Independent: dressing, eating, toileting, bathing. Ambulation: walker IADLs Independent: shopping, housework, finances, food prep, telephone, transportation , medication admin. Review of Systems Review of Systems Constitutional: Reports: see HPI. Exam & Diagnostic Data Last 24 Hrs of Vital Signs/I&O Vital Signs Date Time Temp Pulse Resp B/P B/P Pulse O2 O2 Flow FiO2 Mean Ox Delivery Rate 05/25 1444 98.0 80 18 142/65 94 Nasal 4.0L Cannula 05/25 1115 97 Nasal 2.0L Cannula 05/25 1100 93 Nasal 4.0L Cannula 05/25 1045 93 Nasal 4.0L Cannula 05/25 1023 92 Nasal 4.0L Cannula 05/25 1021 100.2 90 26 167/72 77 Room Air Intake & Output 05/25 1600 / 0800 02 0000 Intake Total 250 Output Total Balance 250 Intake, IV 250 Patient 82.1 kg Weight Weight Reported by Patient Measurement Method Physical Exam General Appearance Alert, Oriented X3, Cooperative, Mild Distress Skin No Rashes, No Significant Lesion Skin Temp/Moisture Exam: Warm/Dry HEENT Atraumatic, PERRLA, EOMI, Mucous Membr. moist/pink Cardiovascular Regular Rate, Normal S1, Normal S2, 3/6 systolic murmur, transmitted wheezing heard on cardiac auscultation Lungs decreased air entry, diffuse bilateral wheezing., rales in the RLL, TAM and LLL. only wheezing appreciated in joanne RUL. Abdomen Normal Bowel Sounds, Soft, No Tenderness Extremities No Edema Last 24 Hrs of Labs/Matthieu: Laboratory Tests 05/25/17 1125: Anion Gap 14, Estimated GFR > 60, BUN/Creatinine Ratio 26.7 H, Glucose 182 H, Calcium 10.1, Magnesium 1.7, Total Bilirubin 0.7, AST 26, ALT 30, Alkaline Phosphatase 40, Troponin I < 0.01, Total Protein 7.0, Albumin 4.5, Globulin 2.5, Albumin/Globulin Ratio 1.8, CBC w Diff NO MAN DIFF REQ, RBC 4.72, MCV 86.4, MCH 28.4, MCHC 32.8 L, RDW 14.1, MPV 8.9, Gran % 87.6 H, Lymphocytes % 7.9 L, Monocytes % 3.6, Eosinophils % 0.5, Basophils % 0.4, Absolute Granulocytes 7.6 H, Absolute Lymphocytes 0.7 L, Absolute Monocytes 0.3, Absolute Eosinophils 0, Absolute Basophils 0 05/25/17 1045: Bicarbonate Actual 25, Mixed VBG pH 7.39, Mixed VBG pCO2 43, Mixed VBG O2 Saturation 47 H, Carboxyhemoglobin 0.2 L, O2 Concentration % 4L, O2 Delivery Method NC, Phlebotomy Draw Site LEFT RADIAL Microbiology 05/25 1424 BLOOD: Blood Culture - RECD 05/25 1400 NASOPHARYN: Influenza Virus A & B Rapid Smear - COMP 05/25 1329 BLOOD: Blood Culture - ORD Diagnostic Data CXR Results SERVICE DATE: 05/25/17 EXAM TYPE: RAD - XRY-PORTABLE CHEST XRAY EXAMINATION: CR PORTABLE CHEST CLINICAL INFORMATION: COPD with cough. Shortness of breath. Wheezing. Rhonchi. Presumptive diagnosis of pneumonia. COMPARISON: Chest x-ray dated 01/15/2017. CTA of the chest dated 01/07/2017. TECHNIQUE: Portable AP semierect view of the chest was obtained. FINDINGS: The cardiomediastinal silhouette is borderline normal in size. Lungs bilaterally are symmetrically expanded with diffuse perihilar reticular opacities seen with vascular indistinctness, raising the suspicion of interstitial edema versus diffuse atypical or viral pneumonitis. Some linear subsegmental atelectatic changes seen in the left midlung. There may be a trace amount of fluid in the right minor fissure. Lung apices are partially obscured by the patient's chin. No pneumothorax is seen. Multilevel mild degenerative changes as seen in the spine. IMPRESSION: Above findings may be related to interstitial edema versus diffuse atypical pneumonitis or viral pneumonitis. Close clinical correlation is requested. Assessment/Plan Assessment: Ms. Donahue, is a 51-year-old female with significant past medical history of COPD [on 2 L of oxygen at night with CPAP], coronary artery disease [40% LAD stenosis, [id number]], orthostatic hypotension, obstructive sleep apnea [ compliant with her CPAP, follows Dr. Wall], diabetes, pericarditis status post pericardial window, bipolar depression, restless leg syndrome, TIA, hypothyroidism, and recurrent supratentorial syncopal episodes who presents to the hospital emergency department with complaints of dyspnea and cough. Vitals on admission temperature 100.2, pulse rate 90, blood pressure 167/72 saturating 77% on room air which went up to the mid 90s on 4 L. Chest x-ray revealed a pattern of pneumonitis versus interstitial edema. Her flu cultures currently pending. Labs were relatively unremarkable. Venous blood gas revealed 7.39/43/47. In the emergency department she received albuterol nebulizer as well as 125 mg of Solu-Medrol. She was started them. On ceftriaxone and azithromycin. Problem list/assessment and plan Acute COPD exacerbation * Possibly secondary to viral infection - ?influenza. She is afebrile and does not clinically present as a typical influenza case, however her flu culture is still pending. * Given her last echo, and no hx of CHF, less likely that her BL infiltrates are cardiac in etiology. * If positive, we will treat with Tamiflu for 5 days * Place and gen med for observation * TRC/Nebs with insentive spirometry * IV Zithro for anti-inflamatory properties - 500 IV daily * Solumedrol 40 q12, with plans to titrate to PO prednisone taper * continue O2 via nasal canula, and titrate down as tolerated with a goal oxygen saturation of greater than 92% * If she does not improve, we will consider pulmonary consult We will continue all her home medications except for her metformin and place her on a NovoLog sliding scale with fingerstick measurements 3 times a day before meals at bedtime. Full code Consistent carb 2 Lovenox for DVT prophylaxis Pain pathway as ordered As Ranked By This Provider Problem List: 1. COPD with acute exacerbation 2. Diabetes 3. POTS (postural orthostatic tachycardia syndrome) Core Measures/Misc (9/17) Acute Coronary Syndrome ACS Diagnosis: No Congestive Heart Failure Congestive Heart Failure Diagnosis No Cerebrovascular Accident CVA/TIA Diagnosis: No VTE (View Protocol) VTE Risk Factors Age>40 No Mechanical VTE Prophylaxis d/t Other No VTE Pharm Prophylaxis d/t NA PharmProphylax ordered Sepsis (View protocol) Sepsis Present: No Christina Norton MD 05/25/17 1553: Attending MD Review Statement Attending Statement Attending MD Statement: examined this patient, discuss w/resident/PA/SAFETY DEPOSIT CLERK, agreed w/resident/PA/SAFETY DEPOSIT CLERK, reviewed EMR data (avail), reviewed images Attending Assessment/Plan: 81-year-old female extensive past medical history including diabetes, hypertension, pericardial effusion with a window in the past, hyperlipidemia, COPD and obstructive sleep apnea uses CPAP at night and follows with Dr. Wall as an outpatient. In addition she was here in December 2016 and she has orthostatic hypotension and multiple syncopal episodes thought to be psychogenic in nature after extensive workup for the same. She is here with what appears to be an acute COPD exacerbation with acute hypoxemic respiratory failure. She uses 2 L at home and she is here with fever (at home), cough, shortness of breath and a sat of 77% on room air in the emergency room. In addition a chest x-ray also has bilateral opacities that could be interstitial pneumonitis versus viral pneumonia and unlikely CHF. At this point I'll bring her into [facility], treat her as a COPD exacerbation with IV steroids, TRC with nebs and treat her as a community-acquired pneumonia with ceftriaxone and azithromycin. I'm leaning more towards an atypical pneumonia versus a viral pneumonia but given the preceding symptoms of a viral infection obviously a typical bacterial infection is also in the differential. I will continue the oxygen and try to bring her down to her usual 2 L, continue her other medications. She had a recent echo in December that wasn't concerning for systolic or diastolic heart failure so will follow that closely. Put her on DVT prophylaxis, fingersticks with insulin sliding scale and follow closely. For now I'll treat her with steroids and antibiotics and if she doesn't improve in the next 24-48 hours will get pulmonary involved.
--- NOTE | 2017-05-25 15:13 | Admission Certification ---
Admission Certification Certification Statement - As attending physician, I certify that at the time of - admission, based on clinical presentation, severity of - symptoms, need for further diagnostic testing and - therapeutic interventions, and risk of adverse outcomes - without in-hospital treatment, in my clinical assessment, - this patient requires an acute hospital stay for a minimum - of two nights or longer. I have also considered psychsocial - factors such as support system, advanced age, financial - issues, cognitive issues, and failed out-patient treatments, - past re-admission history, safety of patient, and lack of - compliance as applicable. Specific rationale supporting this admission is: COPD exacerbation in patient with COPD, diabetes.
[2017-05-25 17:52] VITALS: BP 132/70
[2017-05-25 22:29] VITALS: BP 154/76
[2017-05-26 07:05] VITALS: BP 128/78
--- NOTE | 2017-05-26 08:50 | PN- Housestaff ---
Clementine Strickland Olvin Alirio 05/26/17 0850: Subjective Follow-up For: Acute COPD Exacerbation Subjective: No overnight event. Review of Systems Constitutional: Reports: see HPI. Objective Last 24 Hrs of Vital Signs/I&O Vital Signs Date Time Temp Pulse Resp B/P B/P Pulse O2 O2 Flow FiO2 Mean Ox Delivery Rate 05/26 0810 94 Nasal 4.0L Cannula 05/26 0800 Nasal 4.0L Cannula 05/26 0705 98.5 68 24 128/78 91 4.0L 05/26 0209 68 84 02/ 0000 BIPAP / 2234 78 92 / 2229 98.8 76 18 154/76 94 02 2211 Nasal 4.0L Cannula 05/25 1752 98.9 88 18 132/70 93 Nasal 4.0L Cannula 05/25 1742 Nasal 4.0L Cannula 05/25 1726 99.4 76 24 148/65 94 Nasal 4.0L Cannula 05/25 1601 98.7 83 22 157/78 93 Nasal 4.0L Cannula 05/25 1444 98.0 80 18 142/65 94 Nasal 4.0L Cannula Intake & Output 05/26 1600 05/26 0800 05/26 0000 Intake Total 360 480 Output Total 300 Balance -300 360 480 Intake, Oral 360 480 Output, Urine 300 Patient 82.1 kg Weight Physical Exam General Appearance: Pt was sleeping Lungs: Normal Air Movement, Mild wheezing on BL lung bases Current Medications: Current Medications Sig/Ralph Start time Last Medication Dose Route Stop Time Status Admin Acetaminophen 650 MG Q6P PRN 05/25 1445 AC PO Albuterol Sulfate 3 ML TID 05/26 1000 AC 05/26 INH 0811 Albuterol Sulfate 3 ML ONCE ONE 05/25 1600 DC 05/25 INH 05/25 1601 1608 Albuterol Sulfate 2 PUF Q4-6 PRN PRN 05/25 1515 AC INH Aspirin Buffered 81 MG QAM 05/26 1000 AC 05/26 PO 0829 Atorvastatin Calcium 40 MG QPM 05/25 2200 AC 05/25 PO 2120 Azithromycin 500 MG DAILY@1430 05/26 1430 AC Dextrose/Water 250 ML IV Azithromycin 500 MG ONCE ONE 05/25 1400 DC 05/25 Dextrose/Water 250 ML IV 05/25 1459 1435 Budesonide/ 2 PUF BID 05/25 2200 AC 05/26 Formoterol Fumarate INH 0829 Ceftriaxone Sodium 1,000 MG DAILY@1430 05/26 1430 AC IV Ceftriaxone Sodium 0 .STK-MED ONE 05/25 1407 DC .ROUTE Ceftriaxone Sodium 1,000 MG ONCE ONE 05/25 1400 DC 02/03 IV 05/25 1401 1435 Docusate Sodium 100 MG BID 05/25 2200 AC 05/26 PO 0830 Droxidopa 600 MG TID 05/25 1600 AC 05/26 PO 0829 Enoxaparin Sodium 0 .STK-MED ONE 05/25 1443 DC SC Enoxaparin Sodium 40 MG DAILY 05/25 1431 AC 05/26 SC 0828 Fenofibrate 145 MG DAILY 05/26 1000 AC 05/26 PO 0829 Fluticasone 2 SPRAY DAILY 05/27 1000 AC Propionate TRUMAN Fluticasone 2 SPRAY DAILY 05/26 1000 DC Propionate TRUMAN Folic Acid 1 MG QAM 05/26 1000 AC 05/26 PO 0830 Ibuprofen 400 MG Q6P PRN 05/25 1445 AC 05/26 PO 0829 Insulin Aspart 0 TIDAC 05/25 1700 CAN SC Insulin Aspart 0 TIDAC 05/25 1700 AC 05/26 SC 1146 Levothyroxine Sodium 0.05 MG DAILY AC 05/26 0700 AC 05/26 PO 0645 Linaclotide 290 MCG DAILY 05/27 1000 AC PO Linaclotide 290 MCG DAILY 05/26 1000 DC PO [place] Carbonate 300 MG 1000 05/26 1000 AC 05/26 PO 0830 [place] Carbonate 600 MG AT BEDTIME 05/25 2200 AC 05/25 PO 2120 Meclizine HCl 12.5 MG TID PRN 05/25 1515 AC PO Methylprednisolone 40 MG Q12 05/25 2200 AC 05/26 IV 0827 Midodrine 10 MG BID 05/25 2200 AC 05/26 PO 0830 Oxycodone/ 2 TAB Q6P PRN 05/25 1445 CAN Acetaminophen PO Ropinirole HCl 1.5 MG QPM 05/25 2200 AC 05/25 PO 2120 Sertraline HCl 150 MG 0800 05/26 0800 AC 05/26 PO 0830 Zolpidem Tartrate 5 MG AT BEDTIME 05/25 2200 AC 05/25 PO 2121 Last 24 Hrs of Lab/Matthieu Results Last 24 Hrs of Labs/Mics: Laboratory Tests 05/26/17 1058: Lactic Acid 0.6 L 05/26/17 0800: Anion Gap 17 H, Estimated GFR > 60, BUN/Creatinine Ratio 47.1 H, CBC w Diff NO MAN DIFF REQ, RBC 4.77, MCV 86.8, MCH 28.0, MCHC 32.3 L, RDW 14.4, MPV 9.4, Gran % 81.3 H, Lymphocytes % 13.5 L, Monocytes % 4.5, Eosinophils % 0.6, Basophils % 0.1, Absolute Granulocytes 6.2, Absolute Lymphocytes 1.0 L, Absolute Monocytes 0.3, Absolute Eosinophils 0, Absolute Basophils 0 Microbiology 05/25 1616 URINE ROUT: Legionella Antigen - COLB 05/25 161 URINE ROUT: Streptococcus pneumoniae Antigen (M - COLB 05/25 1534 BLOOD: Blood Culture - RES 05/25 1424 BLOOD: Blood Culture - RES 05/25 1400 NASOPHARYN: Influenza Virus A & B Rapid Smear - COMP Assessment/Plan Assessment: Ms. Virgen, is a 51-year-old female with significant past medical history of COPD [on 2 L of oxygen at night with CPAP], coronary artery disease [40% LAD stenosis, [id number]], orthostatic hypotension, obstructive sleep apnea [ compliant with her CPAP, follows Dr. Wall], diabetes, pericarditis status post pericardial window, bipolar depression, restless leg syndrome, TIA, hypothyroidism, and recurrent supratentorial syncopal episodes who presents to the hospital emergency department with complaints of dyspnea and cough. Vitals on admission temperature 100.2, pulse rate 90, blood pressure 167/72 saturating 77% on room air which went up to the mid 90s on 4 L. Chest x-ray revealed a pattern of pneumonitis versus interstitial edema. Her flu cultures currently pending. Labs were relatively unremarkable. Venous blood gas revealed 7.39/43/47. In the emergency department she received albuterol nebulizer as well as 125 mg of Solu-Medrol. She was started them. On ceftriaxone and azithromycin. Problem list/assessment and plan Acute COPD exacerbation * Flu negative * Given her last echo, and no hx of CHF, less likely that her BL infiltrates are cardiac in etiology. * TRC/Nebs with incentive spirometry * IV Zithro for anti-inflamatory properties - 500 IV daily x 5d * Solumedrol 40 q12, with plans to titrate to PO prednisone taper, pending Pulm recommendations. * continue O2 via nasal canula, and titrate down as tolerated with a goal oxygen saturation of greater than 92%. Baseline 2LNC We will continue all her home medications except for her metformin and place her on a NovoLog sliding scale with fingerstick measurements 3 times a day before meals at bedtime. Full code Consistent carb 2 Lovenox for DVT prophylaxis Pain pathway as ordered Problem List: 1. COPD with acute exacerbation Pain Ratin Pain Location: NA Pain Goal: Remain pain free Pain Plan: see AP Tomorrow's Labs & Rationales: CBC/BEP Christina Norton MD 05/26/17 1025: Attending MD Review Statement Attending Statement Attending MD Statement: examined this patient, discuss w/resident/PA/VEHICLE WASHER, agreed w/resident/PA/VEHICLE WASHER, reviewed EMR data (avail), discussed with nursing, reviewed images Attending Assessment/Plan: Pt is worried about some of her outpatient medications. She is very keen on her Linzess being started. Overall she says her breathing is about the same but I think it's mildly improved. She still has some scattered expiratory wheezes. She's a 51-year-old with underlying COPD and obstructive sleep apnea, she uses 2 L of oxygen at home at night and she uses CPAP as an outpatient. She is here with what appears to be a COPD exacerbation with a community-acquired pneumonia. The chest x-ray is being read as bilateral interstitial infiltrates questionable viral or atypical pneumonitis. She is on IV ceftriaxone and azithromycin for the same and right now she is on 4 L of oxygen, will have to titrate her down to her usual 2 L. We are continuing all of her outpatient medications and continuing the steroids. Given that the anion gap is slightly elevated at 17, we'll check a lactate level as well to make sure there is no lactic acidosis. She is a high fall risk and I'll get a PT eval for her.
[2017-05-26 09:22] LABS: ABSOLUTE BASOPHIL COUNT 0 /CUMM (0.0-0.2); ABSOLUTE EOSINOPHIL COUNT 0 /CUMM (0.0-0.7); ABSOLUTE GRANULOCYTE CT 6.2 /CUMM (1.4-6.5); ABSOLUTE MONOCYTE COUNT 0.3 /CUMM (0.10-0.60); BASOPHIL % 0.1 % (0.0-2.0); EOSINOPHIL % 0.6 % (0-5); GRANULOCYTE % 81.3 % (42.2-75.2); HEMATOCRIT 41.4 % (37-47); MEAN CORPUSCULAR HGB CONC 32.3 G/DL (33.0-37.0); MEAN CORPUSCULAR VOLUME 86.8 FL (81.0-99.0); MEAN PLATELET VOLUME 9.4 FL (7.4-10.4); PLATELET COUNT 313 /CUMM (130-400); RBC DISTRIBUTION WIDTH 14.4 % (11.5-14.5); RED BLOOD CELL CT 4.77 /CUMM (4.20-5.40); WHITE BLOOD CELL COUNT 7.7 /CUMM (4.8-10.8)
--- NOTE | 2017-05-26 13:27 | Cons- Pulmonary ---
General Information and HPI Consulting Request Date of Consult: 05/26/17 Requested By: Dr. Norton Reason for Consult: pneumonia, dypsnea Source of Information: patient Exam Limitations: no limitations History of Present Illness: 51 year old woman. Known to me from the office. Hx of Bipap use for SHIRIN/OHS. Compliance is skewed this period given recent admission for significant and multiple syncopal events. S/p Cath 01/2017 that is normal per patient, follows with neurology syncopal episodes. Off prednisone at home. Presents with dyspnea, no travel or sick contacts. CXR with diffuse perihilar reticular opacities. Significant wheezing. WBC 7.7. PFTs performed 03/30/2015. Showing a moderately severe reduction in FEV1 and FVC. She does have a significant bronchodilator response however her FEV1/FVC percent is normal. TLC is reduced and her DLCO is moderately reduced as well. This is consistent with a mixed obstruction and restrictive deficit. Allergies/Medications Allergies: Coded Allergies: codeine (Severe, ITCH 10/26/16) lemon (Severe, SOB 10/26/16) melatonin (Severe, HIVES/RASH 10/26/16) PER . -CG 07/16/16 propranolol (Severe, SHOCK PER PT 10/26/16) Home Med List: Albuterol Sulfate (Proair Hfa) 90 MCG HFA.AER.AD 2 PUF INH Q4-6 PRN PRN COPD (Reported) Aspirin (Ecotrin*) 81 MG TABLET.DR 1 TAB PO QAM HEART/BLOOD (Reported) Atorvastatin Calcium (Lipitor) 40 MG TABLET 1 TAB PO QPM CHOLESTEROL ( Reported) Budesonide/Formoterol Fumarate (Symbicort 160-4.5 Mcg Inhaler) 10.2 GM HFA.AER.AD 2 PUF INH BID COPD (Reported) Droxidopa (Northera) 100 MG CAPSULE 6 CAP PO TID POTS (Reported) Ergocalciferol (Vitamin D2) (Vitamin D2) 50,000 UNIT CAPSULE 1 CAP PO QTHURS SUPPLEMENT (Reported) Eszopiclone (Lunesta) 3 MG TABLET 1 TAB PO QHS SLEEP (Reported) Fenofibrate Nanocrystallized (Fenofibrate) 145 MG TABLET 1 TAB PO DAILY CHOLESTEROL/TRIGLYCERIDES (Reported) Fluticasone Propionate 16 GM SPRAY.SUSP 2 SPRAY NASB DAILY ALLERGIES ( Reported) Folic Acid 1 MG TABLET 1 TAB PO QAM SUPPLEMENT (Reported) Levothyroxine Sodium 50 MCG TABLET 1 TAB PO DAILY AC THYROID (Reported) Linaclotide (Linzess) 290 MCG CAPSULE 1 CAP PO DAILY CIC (Reported) [place] Carbonate 300 MG CAPSULE 600 MG PO AT BEDTIME bipolar depression [place] Carbonate 300 MG CAPSULE 1 TAB PO 1000 bipolar d/o Meclizine HCl 12.5 MG TABLET 1 TAB PO TID PRN VERTIGO (Reported) Metformin HCl 1,000 MG TABLET 0.5 TAB PO BID DIABETES (Reported) Midodrine HCl 10 MG TABLET 1 TAB PO BID POTS (Reported) Pantoprazole Sodium (Protonix) 40 MG TABLET.DR 1 TAB PO DAILY GERD (Reported) Ropinirole HCl (Requip) 1 MG TABLET 1.5 TAB PO QPM RLS (Reported) Sertraline HCl 50 MG TABLET 150 MG PO 0800 anti-depressant Current Medications: Current Medications Sig/Ralph Start time Last Medication Dose Route Stop Time Status Admin Acetaminophen 650 MG Q6P PRN 05/25 1445 AC PO Albuterol Sulfate 3 ML TID 05/26 1000 AC 05/26 INH 0811 Albuterol Sulfate 3 ML ONCE ONE 05/25 1600 DC 05/25 INH 05/25 1601 1608 Albuterol Sulfate 2 PUF Q4-6 PRN PRN 05/25 1515 AC INH Aspirin Buffered 81 MG QAM 05/26 1000 AC 05/26 PO 0829 Atorvastatin Calcium 40 MG QPM 05/25 2200 AC 05/25 PO 2120 Azithromycin 500 MG DAILY@1430 05/26 1430 AC Dextrose/Water 250 ML IV Azithromycin 500 MG ONCE ONE 05/25 1400 DC 05/25 Dextrose/Water 250 ML IV 05/25 1459 1435 Budesonide/ 2 PUF BID 05/25 2200 AC 05/26 Formoterol Fumarate INH 0829 Ceftriaxone Sodium 1,000 MG DAILY@1430 05/26 1430 AC IV Ceftriaxone Sodium 0 .STK-MED ONE 05/25 1407 DC .ROUTE Ceftriaxone Sodium 1,000 MG ONCE ONE 05/25 1400 DC 05/25 IV 05/25 1401 1435 Docusate Sodium 100 MG BID 05/25 2200 AC 05/26 PO 0830 Droxidopa 600 MG TID 05/25 1600 AC 05/26 PO 0829 Enoxaparin Sodium 0 .STK-MED ONE 05/25 1443 DC SC Enoxaparin Sodium 40 MG DAILY 05/25 1431 AC 05/26 SC 0828 Fenofibrate 145 MG DAILY 05/26 1000 AC 05/26 PO 0829 Fluticasone 2 SPRAY DAILY 05/27 1000 AC Propionate TRUMAN Fluticasone 2 SPRAY DAILY 05/26 1000 DC Propionate TRUMAN Folic Acid 1 MG QAM 05/26 1000 AC 05/26 PO 0830 Ibuprofen 400 MG Q6P PRN 05/25 1445 AC 05/26 PO 0829 Insulin Aspart 0 TIDAC 05/25 1700 CAN SC Insulin Aspart 0 TIDAC 05/25 1700 AC 05/26 SC 1146 Levothyroxine Sodium 0.05 MG DAILY AC 05/26 0700 AC 05/26 PO 0645 Linaclotide 290 MCG DAILY 05/27 1000 AC PO Linaclotide 290 MCG DAILY 05/26 1000 DC PO [place] Carbonate 300 MG 1000 05/26 1000 AC 05/26 PO 0830 [place] Carbonate 600 MG AT BEDTIME 05/25 2200 AC 05/25 PO 2120 Meclizine HCl 12.5 MG TID PRN 05/25 1515 AC PO Methylprednisolone 40 MG Q12 05/25 2200 AC 05/26 IV 0827 Midodrine 10 MG BID 05/25 2200 AC 05/26 PO 0830 Oxycodone/ 2 TAB Q6P PRN 05/25 1445 CAN Acetaminophen PO Ropinirole HCl 1.5 MG QPM / 2200 AC 05/25 PO 2120 Sertraline HCl 150 MG 0800 / 0800 AC 05/26 PO 0830 Zolpidem Tartrate 5 MG AT BEDTIME 05/25 2200 AC 05/25 PO 2121 Review of Systems Comments 18 point review of systems was performed and reviewed. Please see pertinent positives and pertinent negatives in the HPI. Otherwise ROS is negative. Past History Travel History Traveled to [place] past 21 day No Medical History Blood Transfusion Hx: No Neurological: dizziness, peripheral neuropathy, TIA, TRIGEMINAL NEURALGIA NEUROPATHY gait disturbance (uses a walker); ?neurological basis EENT: NONE Cardiovascular: angina (hx "atypical chest pain" ), hypertension, hyperlipidemia , HIGH TRYGLCERIDES recent cardiac catheterizations were negative for occlusive coronary artery disease PERICARDITIS Respiratory: pneumonia, COPD, OBSSLEEP BIPAP Gastrointestinal: ACID REFLUX CHRONIC/IDEOPA ABDOMINAL HERNIA Renal: NONE Musculoskeletal: R ANKLE FX AND REPAIR Psychiatric: anxiety, bipolar disease, depression, opioid dependence, substance abuse (possible benzo. and opioid) Endocrine: diabetes, HYPOTHYROIDISM Blood Disorders: NONE Cancer(s): ovarian cancer, SARCOMA L LEG CAKE ICER/Reproductive: OVARIAN CA TOTAL HYSTERECTOMY Surgical History Surgical History: hysterectomy, ABD HERNIA REPAIR X4 HYSTERECTOMY CHOLECYSTECTOMY R ANKLE SX POST FX SARCOMA REMOVAL L LEG PERICARDIAL WINDOW Family History Relations & Conditions If Any: MOTHER FATHER (CAD). MOTHER (CHF, COPD). Psychosocial History Where Do You Live? Home Who Do You Live With? self Services at Home: Home Health Aide, Nursing Primary Language: Luxembourgish Smoking Status: Current Everyday Smoker ETOH Use: denies use Illicit Drug Use: denies illicit drug use Functional Ability ADLs Independent: dressing, eating, toileting, bathing. Ambulation: walker IADLs Independent: shopping, housework, finances, food prep, telephone, transportation , medication admin. Exam & Diagnostic Data Last 24 Hrs of Vital Signs/I&O Vital Signs Date Time Temp Pulse Resp B/P B/P Pulse O2 O2 Flow FiO2 Mean Ox Delivery Rate 05/26 0810 94 Nasal 4.0L Cannula 05/26 0800 Nasal 4.0L Cannula 05/26 0705 98.5 68 24 128/78 91 4.0L 05/26 0209 68 84 02/ 0000 BIPAP 05/25 2234 78 92 02/ 2229 98.8 76 18 154/76 94 05/25 2211 Nasal 4.0L Cannula 05/25 1752 98.9 88 18 132/70 93 Nasal 4.0L Cannula 05/25 1742 Nasal 4.0L Cannula 05/25 1726 99.4 76 24 148/65 94 Nasal 4.0L Cannula 05/25 1601 98.7 83 22 157/78 93 Nasal 4.0L Cannula 05/25 1444 98.0 80 18 142/65 94 Nasal 4.0L Cannula Intake & Output 05/26 1600 05/26 0800 05/26 0000 Intake Total 360 480 Output Total 300 Balance -300 360 480 Intake, Oral 360 480 Output, Urine 300 Patient 181 lb Weight Physical Exam Other Physical Findings: gen awake and alert heent ncat cvs s1, s2 lungs bilateral wheezing abd obese ext no edema Last 48 Hrs of Labs/Matthieu: Laboratory Tests 05/26/17 1058: Lactic Acid 0.6 L 02/04/18 0800: Anion Gap 17 H, Estimated GFR > 60, BUN/Creatinine Ratio 47.1 H, CBC w Diff NO MAN DIFF REQ, RBC 4.77, MCV 86.8, MCH 28.0, MCHC 32.3 L, RDW 14.4, MPV 9.4, Gran % 81.3 H, Lymphocytes % 13.5 L, Monocytes % 4.5, Eosinophils % 0.6, Basophils % 0.1, Absolute Granulocytes 6.2, Absolute Lymphocytes 1.0 L, Absolute Monocytes 0.3, Absolute Eosinophils 0, Absolute Basophils 0 05/25/17 1125: Anion Gap 14, Estimated GFR > 60, BUN/Creatinine Ratio 26.7 H, Glucose 182 H, Calcium 10.1, Magnesium 1.7, Total Bilirubin 0.7, AST 26, ALT 30, Alkaline Phosphatase 40, Troponin I < 0.01, Total Protein 7.0, Albumin 4.5, Globulin 2.5, Albumin/Globulin Ratio 1.8, CBC w Diff NO MAN DIFF REQ, RBC 4.72, MCV 86.4, MCH 28.4, MCHC 32.8 L, RDW 14.1, MPV 8.9, Gran % 87.6 H, Lymphocytes % 7.9 L, Monocytes % 3.6, Eosinophils % 0.5, Basophils % 0.4, Absolute Granulocytes 7.6 H, Absolute Lymphocytes 0.7 L, Absolute Monocytes 0.3, Absolute Eosinophils 0, Absolute Basophils 0 05/25/17 1045: Bicarbonate Actual 25, Mixed VBG pH 7.39, Mixed VBG pCO2 43, Mixed VBG O2 Saturation 47 H, Carboxyhemoglobin 0.2 L, O2 Concentration % 4L, O2 Delivery Method NC, Phlebotomy Draw Site LEFT RADIAL Microbiology 05/25 1400 NASOPHARYN: Influenza Virus A & B Rapid Smear - COMP Assessment/Plan Impression/Plan: Impression 51 year old woman * acute exacerbation of COPD - possible viral vs bacterial process such as an atypical infection * SHIRIN/OHS Plan -continue home bipap settings -ceftriaxone/zithromax -sputum cx -check BNP -solumedrol INCREASE to 40mg iv q8h -TRC/Nebs DVT prophylaxis at all times Consult Acknowledgment - Thank you for your consult request.
[2017-05-26 13:51] VITALS: BP 120/76
[2017-05-26 16:15] VITALS: BP 118/70
[2017-05-26 22:27] VITALS: BP 160/78
[2017-05-27 07:12] VITALS: BP 142/74
--- NOTE | 2017-05-27 07:46 | PN- Housestaff ---
Clementine Strickland 05/27/17 0746: Subjective Follow-up For: Acute COPD Exacerbation Subjective: No overnight event. Patient felt about the same on respiratory status and still felt wheezing. PT just worked with her to move from bed to chair and her O2 sat decreased to 88% on 4LNC. Patient acknowledged that she was back to q8 steroid yesterday. However, per nursing staff she did not have IV access yesterday afternoon until this AM so she missed two doses of IV solumedrol. No other specific complaint. Review of Systems Constitutional: Reports: see HPI. Objective Last 24 Hrs of Vital Signs/I&O Vital Signs Date Time Temp Pulse Resp B/P B/P Pulse O2 O2 Flow FiO2 Mean Ox Delivery Rate 05/27 0712 97.8 62 20 142/74 96 Nasal 4.0L Cannula 05/27 0311 82 05/27 0039 71 95 05/27 0000 99 Nasal 4.0L Cannula 05/26 2227 97.6 78 20 160/78 99 Nasal Cannula 05/26 2056 93 Nasal 4.0L Cannula 05/26 1615 98.0 70 18 118/70 95 Nasal 4.0L Cannula 05/26 1600 Nasal 4.0L Cannula 05/26 1351 97.9 67 20 120/76 95 Nasal 4.0L Cannula Intake & Output 05/27 1600 05/27 0800 05/27 0000 Intake Total 100 700 Output Total Balance 100 700 Intake, IV 0 Intake, Oral 100 700 Number 0 Bowel Movements Physical Exam General Appearance: Alert, Oriented X3, Cooperative, No Acute Distress Cardiovascular: Regular Rate Lungs: Bilateral wheezing Abdomen: Soft, No Tenderness Neurological: Normal Speech Extremities: No Edema, Normal Pulses Current Medications: Current Medications Sig/Ralph Start time Last Medication Dose Route Stop Time Status Admin Acetaminophen 650 MG Q6P PRN 05/25 1445 AC PO Acetylcysteine 4 ML BID 05/26 2200 AC 05/27 INH 0804 Albuterol Sulfate 3 ML TID 05/26 1000 AC 05/27 INH 0803 Albuterol Sulfate 2 PUF Q4-6 PRN PRN 05/25 1515 AC INH Artificial Tears 2 GTT 4 TIMES/DAY PRN 05/27 0400 AC 05/27 OPH 0853 Aspirin Buffered 81 MG QAM 05/26 1000 AC 05/26 PO 0829 Atorvastatin Calcium 40 MG QPM 05/25 2200 AC 05/26 PO 2127 Azithromycin 500 MG ONCE ONE 05/26 2045 DC 05/26 PO 05/26 Azithromycin 500 MG DAILY@1430 05/26 1430 AC 05/26 Dextrose/Water 250 ML IV 1438 Budesonide/ 2 PUF BID 05/25 2200 AC 05/26 Formoterol Fumarate INH 2127 Ceftriaxone Sodium 1,000 MG DAILY@1430 05/26 1430 AC 05/26 IV 1438 Docusate Sodium 100 MG BID 05/25 2200 AC 05/26 PO 2126 Droxidopa 600 MG TID 05/25 1600 AC 05/26 PO 2126 Enoxaparin Sodium 40 MG DAILY 05/25 1431 AC 05/26 SC 0828 Fenofibrate 145 MG DAILY 05/26 1000 AC 05/26 PO 0829 Fluticasone 2 SPRAY DAILY 05/27 1000 AC Propionate TRUMAN Fluticasone 2 SPRAY DAILY 05/26 1000 DC Propionate TRUMAN Folic Acid 1 MG QAM 05/26 1000 AC 05/26 PO 0830 Ibuprofen 400 MG Q6P PRN 05/25 1445 AC 05/26 PO 0829 Insulin Aspart 0 TIDAC 05/25 1700 AC 05/26 SC 1807 Levothyroxine Sodium 0.05 MG DAILY AC 05/26 0700 AC 05/27 PO 0609 Linaclotide 290 MCG DAILY 05/27 1000 AC PO Linaclotide 290 MCG DAILY 05/26 1000 DC PO [place] Carbonate 300 MG 1000 / 1000 AC 05/26 PO 0830 [place] Carbonate 600 MG AT BEDTIME 05/25 2200 AC 05/26 PO 2126 Meclizine HCl 12.5 MG TID PRN 05/25 1515 AC PO Methylprednisolone 40 MG Q8 05/26 1400 AC 05/26 IV 1438 Methylprednisolone 40 MG Q12 05/25 2200 DC 05/26 IV 0827 Midodrine 10 MG BID 05/25 2200 AC 05/26 PO 2126 Prednisone 50 MG ONCE ONE 05/26 2030 DC 05/26 PO 05/26 Ropinirole HCl 1.5 MG QPM 05/25 2200 AC 05/26 PO 212 Sertraline HCl 150 MG 0800 05/26 0800 AC 05/27 PO 0853 Zolpidem Tartrate 5 MG AT BEDTIME 05/25 220 AC 05/26 PO 212 Last 24 Hrs of Lab/Matthieu Results Last 24 Hrs of Labs/Mics: Laboratory Tests 05/27/17 0755: Sodium Pending, Potassium Pending, Chloride Pending, Carbon Dioxide Pending, Anion Gap Pending, BUN Pending, Creatinine Pending, BUN/Creatinine Ratio Pending , CBC w Diff Pending, WBC Pending, RBC Pending, Hgb Pending, Hct Pending, MCV Pending, MCH Pending, MCHC Pending, RDW Pending, Plt Count Pending, MPV Pending 05/26/17 2218: Lactic Acid 1.0 05/26/17 1058: Lactic Acid 0.6 L Assessment/Plan Assessment: Ms. Virgen, is a 51-year-old female with significant past medical history of COPD [on 2 L of oxygen at night with CPAP], coronary artery disease [40% LAD stenosis, [id number]], orthostatic hypotension, obstructive sleep apnea [ compliant with her CPAP, follows Dr. Wall], diabetes, pericarditis status post pericardial window, bipolar depression, restless leg syndrome, TIA, hypothyroidism, and recurrent supratentorial syncopal episodes who presents to the hospital emergency department with complaints of dyspnea and cough. Vitals on admission temperature 100.2, pulse rate 90, blood pressure 167/72 saturating 77% on room air which went up to the mid 90s on 4 L. Chest x-ray revealed a pattern of pneumonitis versus interstitial edema. Her flu cultures currently pending. Labs were relatively unremarkable. Venous blood gas revealed 7.39/43/47. In the emergency department she received albuterol nebulizer as well as 125 mg of Solu-Medrol. She was started them. On ceftriaxone and azithromycin. Problem list/assessment and plan Acute COPD exacerbation * Flu negative * Given her last echo, and no hx of CHF, less likely that her BL infiltrates are cardiac in etiology. * TRC/Nebs with incentive spirometry * IV Zithro for anti-inflamatory properties - 500 IV daily x 5d, currently day 3 * Solumedrol 40 q8, with plans to titrate to PO prednisone taper, pending Pulm recommendations. She did not get her IV solumedrol overnight due to lost IV access, may continue at q8 for another day today and taper to q12 or lower tomorrow. * continue 4L O2 via nasal canula + Nocturnal CPAP, and titrate down as tolerated with a goal oxygen saturation of greater than 92%. Baseline 2LNC We will continue all her home medications except for her metformin and place her on a NovoLog sliding scale with fingerstick measurements 3 times a day before meals at bedtime. Full code Consistent carb 2 Lovenox for DVT prophylaxis Pain pathway as ordered Problem List: 1. COPD with acute exacerbation Pain Ratin Pain Location: NA Pain Goal: Remain pain free Pain Plan: see AP Tomorrow's Labs & Rationales: CBC SauravMaria L 05/27/17 1347: Attending MD Review Statement Attending Statement Attending MD Statement: examined this patient, discuss w/resident/PA/CNC FIELD SERVICE ENGINEER, agreed w/resident/PA/CNC FIELD SERVICE ENGINEER, discussed with family, reviewed EMR data (avail), discussed with nursing, discussed with case mgmt, reviewed images, amended to note Attending Assessment/Plan: 81-year-old female extensive past medical history including diabetes, hypertension, pericardial effusion with a window in the past, hyperlipidemia, COPD and obstructive sleep apnea uses CPAP at night and follows with Dr. Wall as an outpatient admitted with COPD exacerbation and acute on chronic respiratroy failure. Continue with IV steroids, TRC with nebs and treat her as a community-acquired pneumonia with ceftriaxone and azithromycin likely atypical. Titrate oxygen. RISS and titrate insulin as needed. Pulmonary following. gi/dvt prophyalxis full code.
[2017-05-27 10:23] LABS: ABSOLUTE BASOPHIL COUNT 0 /CUMM (0.0-0.2); ABSOLUTE EOSINOPHIL COUNT 0 /CUMM (0.0-0.7); ABSOLUTE GRANULOCYTE CT 6.2 /CUMM (1.4-6.5); ABSOLUTE LYMPH COUNT 0.8 /CUMM (1.2-3.4); ABSOLUTE MONOCYTE COUNT 0.4 /CUMM (0.10-0.60); BASOPHIL % 0.1 % (0.0-2.0); EOSINOPHIL % 0.3 % (0-5); HEMATOCRIT 38.3 % (37-47); MEAN CORPUSCULAR HGB 28.1 PG (27.0-31.0); MEAN CORPUSCULAR HGB CONC 32.3 G/DL (33.0-37.0); MEAN PLATELET VOLUME 9.6 FL (7.4-10.4); PLATELET COUNT 316 /CUMM (130-400); RBC DISTRIBUTION WIDTH 14.1 % (11.5-14.5); WHITE BLOOD CELL COUNT 7.4 /CUMM (4.8-10.8)
--- NOTE | 2017-05-27 11:01 | PN- Pulmonary ---
Subjective HPI/Critical Care Issues: Patient seen and examined this morning. She continues to be short of breath however she has lost IV access and did not get her overnight solumedrol doses Objective Current Medications: Current Medications Sig/Ralph Start time Last Medication Dose Route Stop Time Status Admin Acetaminophen 650 MG Q6P PRN / 1445 AC PO Acetylcysteine 4 ML BID 05/26 2200 AC 05/27 INH 0804 Albuterol Sulfate 3 ML TID 05/26 1000 AC 05/27 INH 0803 Albuterol Sulfate 2 PUF Q4-6 PRN PRN 05/25 1515 AC INH Artificial Tears 2 GTT 4 TIMES/DAY PRN 05/27 0400 AC 05/27 OPH 0853 Aspirin Buffered 81 MG QAM 05/26 1000 AC 05/26 PO 0829 Atorvastatin Calcium 40 MG QPM 05/25 2200 AC 05/26 PO 2127 Azithromycin 500 MG ONCE ONE 05/26 2045 DC / PO 05/26 2046 2134 Azithromycin 500 MG DAILY@1430 / 1430 AC 05/26 Dextrose/Water 250 ML IV 1438 Budesonide/ 2 PUF BID 05/25 2200 AC 05/26 Formoterol Fumarate INH 2127 Ceftriaxone Sodium 1,000 MG DAILY@1430 /04 1430 AC 05/26 IV 1438 Docusate Sodium 100 MG BID 05/25 2200 AC 05/26 PO 2126 Droxidopa 600 MG TID 05/25 1600 AC 05/26 PO 2126 Enoxaparin Sodium 40 MG DAILY /03 1431 AC 05/26 SC 0828 Fenofibrate 145 MG DAILY 05/26 1000 AC 05/26 PO 0829 Fluticasone 2 SPRAY DAILY 05/27 1000 AC Propionate TRUMAN Folic Acid 1 MG QAM 04 1000 AC 05/26 PO 0830 Ibuprofen 400 MG Q6P PRN / 1445 AC 05/26 PO 0829 Insulin Aspart 0 TIDAC 05/25 1700 AC 05/26 SC 1807 Levothyroxine Sodium 0.05 MG DAILY AC 05/26 0700 AC 05/27 PO 0609 Linaclotide 290 MCG DAILY 05/27 1000 AC PO [place] Carbonate 300 MG 1000 / 1000 AC 05/26 PO 0830 [place] Carbonate 600 MG AT BEDTIME 05/25 2200 AC 05/26 PO 2126 Meclizine HCl 12.5 MG TID PRN 05/25 1515 AC PO Methylprednisolone 40 MG Q8 05/26 1400 AC 05/26 IV 1438 Methylprednisolone 40 MG Q12 05/25 2199 DC 05/26 IV 0827 Midodrine 10 MG BID 05/25 2199 AC 05/26 PO 212 Prednisone 50 MG ONCE ONE 05/26 2029 DC 05/26 PO 05/26 2030 213 Ropinirole HCl 1.5 MG QPM 05/25 2199 AC 05/26 PO 212 Sertraline HCl 150 MG 0800 05/26 0800 AC 05/27 PO 0853 Zolpidem Tartrate 5 MG AT BEDTIME 05/25 2199 AC 05/26 PO 212 Vital Signs & I&O Last 24 Hrs of Vitals and I&O: Vital Signs Date Time Temp Pulse Resp B/P B/P Pulse O2 O2 Flow FiO2 Mean Ox Delivery Rate 05/27 711 97.8 62 20 142/74 96 Nasal 4.0L Cannula 05/27 0311 82 05/27 0039 71 95 05/27 0000 99 Nasal 4.0L Cannula 05/26 2226 97.6 78 20 160/78 99 Nasal Cannula 05/26 2055 93 Nasal 4.0L Cannula 05/26 1615 98.0 70 18 118/70 95 Nasal 4.0L Cannula 05/26 1600 Nasal 4.0L Cannula 05/26 1351 97.9 67 20 120/76 95 Nasal 4.0L Cannula Intake & Output 05/27 1600 05/27 0800 05/27 0000 Intake Total 100 700 Output Total Balance 100 700 Intake, IV 0 Intake, Oral 100 700 Number 0 Bowel Movements Exam Other Physical Findings: gen awake and alert heent ncat cvs s1, s2 lungs bilateral wheezing abd obese ext no edema Results Last 24 Hrs of Lab Results: Laboratory Tests 05/27/17 0755: Anion Gap 14, Estimated GFR > 60, BUN/Creatinine Ratio 54.0 H, CBC w Diff Pending, WBC Pending, RBC Pending, Hgb Pending, Hct Pending, MCV Pending, MCH Pending, MCHC Pending, RDW Pending, Plt Count Pending, MPV Pending, Gran % Pending, Lymphocytes % Pending, Monocytes % Pending, Eosinophils % Pending, Basophils % Pending, Absolute Granulocytes Pending, Absolute Lymphocytes Pending , Absolute Monocytes Pending, Absolute Eosinophils Pending, Absolute Basophils Pending 05/26/17 2218: Lactic Acid 1.0 Impression/Plan Impression/Plan Impression/Plan: Impression 51 year old woman * acute exacerbation of COPD - possible viral vs bacterial process such as an atypical infection * SHIRIN/OHS Plan -continue home bipap settings -ceftriaxone/zithromax -sputum cx -check BNP -solumedrol INCREASE to 40mg iv q8h - ensure she gets doses -mucomyst nebulized bid -TRC/Nebs DVT prophylaxis at all times
[2017-05-27 11:37] LABS: GRANULOCYTE % 83.7 % (42.2-75.2)
[2017-05-27 15:09] VITALS: BP 140/90
--- NOTE | 2017-05-27 21:42 | Discharge Summary ---
Visit Information Visit Dates Admission Date: 05/25/17 Discharge Date: 06/05/2017 Hospital Course Course Attending Physician: Maria L Mg MD Primary Care Physician: Zakia Castellon DO [facility] Hospital Course: Patient is a 51-year-old female with significant past medical history of COPD [ on 2 L of oxygen at night with CPAP], coronary artery disease [40% LAD stenosis, [id number]], orthostatic hypotension, SHIRIN [compliant with her CPAP, follows Dr. Wall], diabetes, pericarditis status post pericardial window, bipolar depression, restless leg syndrome, TIA, hypothyroidism, who presents to the hospital emergency department with complaints of dyspnea and cough. Vitals on admission temperature 100.2, pulse rate 90, blood pressure 167/72 saturating 77% on room air which went up to the mid 90s on 4 L. Chest x-ray revealed a pattern of pneumonitis versus interstitial edema. Flu was negative Labs were relatively unremarkable. Venous blood gas revealed 7.39/43/47. In the emergency department she received albuterol nebulizer as well as 125 mg of Solu-Medrol. She was started them. On ceftriaxone and azithromycin. Admitted to general medicine floor Problem list/assessment and plan Acute COPD exacerbation Patient was on 2L home oxygen and desturated to 77% in ER requiring 4L of oxygen. She was placed on IV ceftriaxone, Azithromycin for possible infection for a total of 5 days. Started on IV steroids and transitioned to oral steroids. TRC/Nebs round the clock. Cultures remained negative. Pulmonary following. SHIRIN - on CPAP RLS - ropinirole 1.mg QPM POTS (postural orthostaic tachycardia syndrome) - Midodrine 10mg BID and Droxidopa 600mg TID Hypothyroidism - levothyroxine Bipolar disorder - lithium 300mg AM and 600mg at bedtime GERD - pantop Bowel problems - Linzess 290mcg daily We have continued all her home medications except for her metformin and place her on a NovoLog sliding scale with fingerstick measurements 3 times a day before meals at bedtime. Full code Lovenox for DVT prophylaxis Complications: None Allergies: Coded Allergies: codeine (Severe, ITCH 10/26/16) lemon (Severe, SOB 10/26/16) melatonin (Severe, HIVES/RASH 10/26/16) PER . -CG 07/16/16 propranolol (Severe, SHOCK PER PT 10/26/16) Significant Procedures: CXR at admission IMPRESSION: Above findings may be related to interstitial edema versus diffuse atypical pneumonitis or viral pneumonitis. Close clinical correlation is requested. Pertinent Lab Results: as above Disposition Summary Disposition Principal Diagnosis: COPD exacerbation leading to acute hypoxic respiratory failure Additional Diagnosis: SHIRIN RLS POTS (postural orthostaic tachycardia syndrome) Hypothyroidism Bipolar disorder GERD Discharge Disposition: home health services Discharge Instructions General Discharge Information Code Status: Full Code Patient's Diet: as tolerated Patient's Activity: as tolerated Follow-Up Instructions/Appts: - Please follow up with Dr. Wall for your COPD evaluation within 1 week of discharge. - Please follow up with your primary care physician within 1-2 week of discharge. Inform your primary care physician of this admission to [facility]. - Continue your current medications per discharge instructions. - Please watch for these problems: Fever, Chills, Nausea, Vomiting, Shortness of Breath, Productive Cough, Chest Pain/Discomfort, Abdominal Pain, Active Bleeding or Bloody urine/stool. Medications at Discharge Discharge Medications: Continue taking these medications: Levothyroxine Sodium (Levothyroxine Sodium) 50 MCG TABLET 1 Tablet ORAL DAILY BEFORE BREAKFAST Comments: Last Taken: 06/05/17 Time: 6:30 AM Atorvastatin Calcium (Lipitor) 40 MG TABLET 1 Tablet ORAL Every night Comments: Last Taken: 06/04/17 @ 5 PM Aspirin (Ecotrin*) 81 MG TABLET.DR 1 Tablet ORAL Every Morning Comments: Last Taken: 06/05/17 @ 10 AM Folic Acid (Folic Acid) 1 MG TABLET 1 Tablet ORAL Every Morning Comments: Last Taken: 06/05/17 Time: 10 AM Ergocalciferol (Vitamin D2) (Vitamin D2) 50,000 UNIT CAPSULE 1 Capsule ORAL EVERY SATURDAY Comments: NOT GIVEN IN THE HOSPITAL Albuterol Sulfate (Proair Hfa) 90 MCG HFA.AER.AD 2 Puff Inhale through mouth EVERY 4-6 HOURS NEEDED as needed for COPD Comments: Last Taken: 06/05/17 @ 11:30 AM Budesonide/Formoterol Fumarate (Symbicort 160-4.5 Mcg Inhaler) 10.2 GM HFA.AER.AD 2 Puff Inhale through mouth TWICE DAILY Qty = 10 Comments: Last Taken: 06/05/17 @ 10 AM Fluticasone Propionate (Fluticasone Propionate) 16 GM SPRAY.SUSP 2 [place] Both sides of nose DAILY Qty = 16 Comments: Last Taken: 06/05/17 Time: 10 AM Pantoprazole Sodium (Protonix) 40 MG TABLET.DR 1 Tablet ORAL DAILY Comments: LAST TAKEN: 06/04/17 @ 10 PM Metformin HCl (Metformin HCl) 1,000 MG TABLET 0.5 Tablet ORAL TWICE DAILY Qty = 90 Comments: NOT TAKEN IN HOSPITAL Fenofibrate Nanocrystallized (Fenofibrate) 145 MG TABLET 1 Tablet ORAL DAILY Qty = 85 Comments: Last Taken: 06/05/17 Time: 10 AM Sertraline HCl (Sertraline HCl) 50 MG TABLET 150 Milligram ORAL DAILY @8 AM Qty = 42 Comments: Last Taken: 06/05/17 Time: 10 AM Meclizine HCl (Meclizine HCl) 12.5 MG TABLET 1 Tablet ORAL THREE TIMES DAILY as needed for VERTIGO Comments: NOT TAKEN IN HOSPITAL Midodrine HCl (Midodrine HCl) 10 MG TABLET 1 Tablet ORAL TWICE DAILY Comments: Last Taken: 06/05/17 Time: 10 AM Droxidopa (Northera) 100 MG CAPSULE 6 Capsule ORAL THREE TIMES DAILY Qty = 495 Comments: Last Taken: 06/05/17 Time: 10 AM [place] Carbonate ([place] Carbonate) 300 MG CAPSULE 600 Milligram ORAL AT BEDTIME Qty = 30 Comments: Last Taken: 06/05/17 Time: 10 AM [place] Carbonate ([place] Carbonate) 300 MG CAPSULE 1 Tablet ORAL 1000 Qty = 14 Comments: Last Taken: 06/05/17 Time: 10 AM Linaclotide (Linzess) 290 MCG CAPSULE 1 Capsule ORAL DAILY Comments: LAST TAKEN: 06/05/17 @ 10 AM Eszopiclone (Lunesta) 3 MG TABLET 1 Tablet ORAL TAKE AT BEDTIME Qty = 30 Comments: NOT TAKEN IN HOSPITAL Ropinirole HCl (Requip) 1 MG TABLET 1.5 Tablet ORAL Every night Qty = 45 Comments: LAST TAKEN: 06/04/17 @ 10 PM Start taking the following new medications: Prednisone (Prednisone) 10 MG TABLET 1 Tablet ORAL DAILY Qty = 36 No Refills Instructions: . Comments: 06/06: Take 6 tablets, once daily 06/07-17: Take 5 tablets, once daily 06/09-: Take 4 tablets, once daily 06/11-: Take 3 tablets, once daily 06/13-: Take 2 tablets, once daily 06/15-: Take 1 tablet, once daily 06/17: STOP Copies To: Zakia Castellon DO Attending MD Review Statement Documenting Attending: Saurav ZUNIGA,Maria L Other Findings: 51-year-old female extensive past medical history including diabetes, hypertension, pericardial effusion with a window in the past, hyperlipidemia, COPD and obstructive sleep apnea uses CPAP at night admitted with acute COPD exacerbation and acute on chronic respiratory failure. Weekend events noted with wheezing b/l with not much improvement so added iv steroids. Patient with much improvement today with decreased wheezing. Continue with PO steroids taper, inhaled bronchodilators. POTS cont home meds. gi/dvt prophyalxis full code. anticipated dc today. Patient wants to go home. DC planning as per PT. FOLLOW UP PCP Dr Sterling in 3-5 days of discharge Pulmonary [facility] as information provided by case management. Cardiology Dr Bartlett in 3-4 weeks of discharge.
[2017-05-27 22:29] VITALS: BP 142/60
[2017-05-28 06:10] VITALS: BP 140/70
--- NOTE | 2017-05-28 08:27 | PN- Housestaff ---
Marco AClementine Olvin Amezquita 05/28/17 0819: Subjective Follow-up For: COPD exacerbation Subjective: No overnight event. Patient felt about the same on her breathing. Patient acknowledged that she got all her scheduled IV steroid doses. Review of Systems Constitutional: Reports: see HPI. Objective Last 24 Hrs of Vital Signs/I&O Vital Signs Date Time Temp Pulse Resp B/P B/P Pulse O2 O2 Flow FiO2 Mean Ox Delivery Rate 05/28 0610 97.7 62 20 140/70 95 Nasal 8L Cannula 05/28 0419 95 Nasal 4.0L Cannula 05/28 0025 76 96 05/28 0000 Nasal 4.0L Cannula 05/27 2330 63 97 05/27 2229 97.9 70 19 142/60 91 Nasal Cannula 05/27 1917 96 Nasal 4.0L Cannula 05/27 1600 92 Nasal 4.0L Cannula 05/27 1509 97.7 65 16 140/90 90 / 1355 Nasal 4.0L Cannula Intake & Output 05/28 1600 05/28 0800 05/28 0000 Intake Total 530 360 Output Total Balance 530 360 Intake, IV 50 Intake, Oral 480 360 Physical Exam General Appearance: Alert, Oriented X3, Cooperative, No Acute Distress Cardiovascular: Regular Rate Lungs: Normal Air Movement, Rhonchi, but no expiratory wheeze Current Medications: Current Medications Sig/Ralph Start time Last Medication Dose Route Stop Time Status Admin Acetaminophen 650 MG Q6P PRN 05/25 1445 AC PO Acetylcysteine 4 ML BID 05/26 2200 AC 05/27 INH 1912 Albuterol Sulfate 3 ML TID 05/26 1000 AC 05/28 INH 0418 Albuterol Sulfate 2 PUF Q4-6 PRN PRN 05/25 1515 AC INH Artificial Tears 2 GTT 4 TIMES/DAY PRN 05/27 0400 AC 05/27 OPH 0853 Aspirin Buffered 81 MG QAM 05/26 1000 AC 05/27 PO 1112 Atorvastatin Calcium 40 MG QPM 05/25 2199 AC 05/27 PO 2050 Azithromycin 500 MG DAILY@1430 05/26 1430 AC 05/27 Dextrose/Water 250 ML IV 1400 Benzonatate 100 MG TID 05/27 1124 AC 05/27 PO 2049 Budesonide/ 2 PUF BID 05/25 2199 AC 05/27 Formoterol Fumarate INH 2046 Ceftriaxone Sodium 1,000 MG DAILY@1430 02/04 1430 AC 02 IV 1400 Docusate Sodium 100 MG BID 05/25 2200 AC 05/27 PO 2050 Droxidopa 600 MG TID 05/25 1600 AC 05/27 PO 205 Enoxaparin Sodium 40 MG DAILY 05/25 1431 AC 05/27 SC 1114 Fenofibrate 145 MG DAILY 05/26 1000 AC 05/27 PO 1111 Fluticasone 2 SPRAY DAILY 05/27 1000 AC 05/27 Propionate TRUMAN 1339 Folic Acid 1 MG QAM 05/26 1000 AC 05/27 PO 1111 Guaifenesin 10 ML Q6P PRN 05/27 2045 AC 05/28 PO 0412 Guaifenesin 600 MG Q12 05/27 1124 AC 05/27 PO 2050 Ibuprofen 400 MG Q6P PRN 05/25 1445 AC 05/26 PO 0829 Insulin Aspart 0 TIDAC 05/25 1700 AC 05/27 SC 1716 Levothyroxine Sodium 0.05 MG DAILY AC 05/26 0700 AC 05/28 PO 0616 Linaclotide 290 MCG DAILY 05/27 1000 AC 05/27 PO 1113 [place] Carbonate 300 MG 1000 05/26 1000 AC 05/27 PO 1114 [place] Carbonate 600 MG AT BEDTIME 05/25 2200 AC 05/27 PO 2050 Meclizine HCl 12.5 MG TID PRN 05/25 1515 AC PO Methylprednisolone 40 MG Q8 /04 1400 AC 05/28 IV 0616 Midodrine 10 MG BID 05/25 2200 AC 05/27 PO 205 Ropinirole HCl 1.5 MG QPM 05/25 2200 AC 05/27 PO 205 Sertraline HCl 150 MG 0800 05/26 0800 AC 05/27 PO 0853 Zolpidem Tartrate 5 MG AT BEDTIME 05/25 2200 AC 05/27 PO 2300 Assessment/Plan Assessment: Ms. Virgen, is a 51-year-old female with significant past medical history of COPD [on 2 L of oxygen at night with CPAP], coronary artery disease [40% LAD stenosis, [id number]], orthostatic hypotension, obstructive sleep apnea [ compliant with her CPAP, follows Dr. Wall], diabetes, pericarditis status post pericardial window, bipolar depression, restless leg syndrome, TIA, hypothyroidism, and recurrent supratentorial syncopal episodes who presents to the hospital emergency department with complaints of dyspnea and cough. Vitals on admission temperature 100.2, pulse rate 90, blood pressure 167/72 saturating 77% on room air which went up to the mid 90s on 4 L. Chest x-ray revealed a pattern of pneumonitis versus interstitial edema. Her flu cultures currently pending. Labs were relatively unremarkable. Venous blood gas revealed 7.39/43/47. In the emergency department she received albuterol nebulizer as well as 125 mg of Solu-Medrol. She was started them. On ceftriaxone and azithromycin. Problem list/assessment and plan Acute COPD exacerbation * Flu negative * Given her last echo, and no hx of CHF, less likely that her BL infiltrates are cardiac in etiology. * TRC/Nebs with incentive spirometry * IV Zithro for anti-inflamatory properties - 500 IV daily x 5d, currently day 4 * Solumedrol 40 q12, with plans to titrate to PO prednisone taper, pending Pulm recommendations. * continue 4L O2 via nasal canula + Nocturnal CPAP, and titrate down as tolerated with a goal oxygen saturation of greater than 92%. Baseline 2LNC norcturnal at home. We continued all her home medications except for her metformin and place her on a NovoLog sliding scale with fingerstick measurements 3TIDAC/HS Full code Consistent carb 2 Lovenox for DVT prophylaxis Pain pathway as ordered Problem List: 1. COPD with acute exacerbation Pain Ratin Pain Location: NA Pain Goal: Remain pain free Pain Plan: see AP Tomorrow's Labs & Rationales: CBC/BEP SauravMaria L 05/28/17 1307: Attending MD Review Statement Attending Statement Attending MD Statement: examined this patient, discuss w/resident/PA/TIE CARRIER, agreed w/resident/PA/TIE CARRIER, discussed with family, reviewed EMR data (avail), discussed with nursing, discussed with case mgmt, reviewed images, amended to note Attending Assessment/Plan: 81-year-old female extensive past medical history including diabetes, hypertension, pericardial effusion with a window in the past, hyperlipidemia, COPD and obstructive sleep apnea uses CPAP at night and follows with Dr. Wall as an outpatient admitted with COPD exacerbation and acute on chronic respiratroy failure. Patient seen/examined bedside. Patient still feeling short of breath, cough+, minimal use of accessory muscles, 4l of oxygen supplementation. Continue with IV steroids, TRC with nebs and treat her as a community-acquired pneumonia with ceftriaxone and azithromycin likely atypical. Titrate oxygen. RISS and titrate insulin as needed. Pulmonary following. Consider cardiology consult , obtain ECHO if not done recently. gi/dvt prophyalxis full code.
[2017-05-28 08:49] LABS: ABSOLUTE BASOPHIL COUNT 0 /CUMM (0.0-0.2); ABSOLUTE EOSINOPHIL COUNT 0.1 /CUMM (0.0-0.7); ABSOLUTE LYMPH COUNT 0.8 /CUMM (1.2-3.4); ABSOLUTE MONOCYTE COUNT 0.4 /CUMM (0.10-0.60); BASOPHIL % 0.3 % (0.0-2.0); HEMATOCRIT 39.3 % (37-47); MEAN CORPUSCULAR HGB 27.7 PG (27.0-31.0); MEAN CORPUSCULAR VOLUME 86.4 FL (81.0-99.0); MEAN PLATELET VOLUME 10.1 FL (7.4-10.4); PLATELET COUNT 313 /CUMM (130-400); RBC DISTRIBUTION WIDTH 13.9 % (11.5-14.5); RED BLOOD CELL CT 4.55 /CUMM (4.20-5.40); WHITE BLOOD CELL COUNT 8.4 /CUMM (4.8-10.8)
[2017-05-28 09:33] LABS: GRANULOCYTE % 83.9 % (42.2-75.2)
--- NOTE | 2017-05-28 11:11 | RADIOLOGY REPORT ---
EXAMINATION: XR CHEST CLINICAL INFORMATION: Follow-up for viral pneumonitis. COMPARISON: Portable chest x-ray dated 05/25/2017. TECHNIQUE: 2 views of the chest were obtained. FINDINGS: Again noted is the indistinctness of the central vascular structures with extensive reticular opacities again noted, more prominent than on the prior study. The linear density in the lateral aspect of the left midlung is not currently visualized. No new focal areas of airspace opacification are noted. There is no evidence of pleural effusion. IMPRESSION: Interval increase in the perihilar reticular opacities, now extending towards the periphery of the bilateral lungs, with indistinctness of the central pulmonary vasculature. Again differential diagnostic considerations include interstitial pulmonary edema versus diffuse atypical pneumonitis.
--- NOTE | 2017-05-28 12:49 | PN- Pulmonary ---
Subjective HPI/Critical Care Issues: Patient seen and examined. She continues to have significant cough. She is not significantly better yet Objective Current Medications: Current Medications Sig/Ralph Start time Last Medication Dose Route Stop Time Status Admin Acetaminophen 650 MG Q6P PRN 05/25 1445 AC PO Acetylcysteine 4 ML BID 05/26 2200 DC 05/28 INH 0945 Albuterol Sulfate 3 ML EVERY 4 HRS/AWAKE 05/28 1200 AC INH Albuterol Sulfate 3 ML TID 05/26 1000 DC 05/28 INH 0945 Albuterol Sulfate 2 PUF Q4-6 PRN PRN 05/25 1515 AC INH Artificial Tears 2 GTT 4 TIMES/DAY PRN 05/27 0400 AC 05/27 OPH 0853 Aspirin Buffered 81 MG QAM 05/26 1000 AC 05/28 PO 0919 Atorvastatin Calcium 40 MG QPM 05/25 2200 AC 05/27 PO 2051 Azithromycin 500 MG DAILY@1430 02/ 1430 AC / Dextrose/Water 250 ML IV 1400 Benzonatate 100 MG TID 05/27 1124 AC 05/28 PO 0927 Budesonide/ 2 PUF BID 05/25 2200 AC 05/28 Formoterol Fumarate INH 0927 Ceftriaxone Sodium 1,000 MG DAILY@1430 / 1430 AC 05/27 IV 1400 Docusate Sodium 100 MG BID 05/25 2200 AC 05/27 PO 2050 Droxidopa 600 MG TID 05/25 1600 AC 05/28 PO 0921 Enoxaparin Sodium 40 MG DAILY / 1431 AC 05/28 SC 0921 Fenofibrate 145 MG DAILY 05/26 1000 AC 05/28 PO 0920 Fluticasone 2 SPRAY DAILY 05/27 1000 AC 05/27 Propionate TRUMAN 1339 Folic Acid 1 MG QAM 05/26 1000 AC 05/28 PO 0918 Guaifenesin 10 ML .STK-MED ONE 05/28 0406 DC PO 05/28 0407 Guaifenesin 10 ML Q6P PRN 05/27 2045 AC 05/28 PO 0412 Guaifenesin 600 MG Q12 05/27 1124 AC 05/28 PO 0920 Ibuprofen 400 MG Q6P PRN / 1445 AC 05/26 PO 0829 Insulin Aspart 0 TIDAC 05/25 1700 AC 05/27 SC 1716 Ipratropium [place] 2.5 ML EVERY 4 HRS/AWAKE 05/28 1200 AC INH Levothyroxine Sodium 0.05 MG DAILY AC 05/26 0700 AC 05/28 PO 0616 Linaclotide 290 MCG DAILY 05/27 1000 AC 05/28 PO 0921 [place] Carbonate 300 MG 1000 05/26 1000 AC 05/28 PO 0920 [place] Carbonate 600 MG AT BEDTIME 05/25 2200 AC 05/27 PO 2050 Meclizine HCl 12.5 MG TID PRN 05/25 1515 AC PO Methylprednisolone 40 MG Q12 05/28 2200 AC IV Methylprednisolone 40 MG Q8 05/26 1400 DC 05/28 IV 0616 Midodrine 10 MG BID 05/25 220 AC 05/28 PO 0920 Omeprazole 40 MG DAILY AC 05/28 1054 AC PO Ropinirole HCl 1.5 MG QPM 05/25 220 AC 05/27 PO 205 Sertraline HCl 150 MG 0800 05/26 0800 AC 05/28 PO 0919 Zolpidem Tartrate 5 MG AT BEDTIME 05/25 220 AC 05/27 PO 2300 Vital Signs & I&O Last 24 Hrs of Vitals and I&O: Vital Signs Date Time Temp Pulse Resp B/P B/P Pulse O2 O2 Flow FiO2 Mean Ox Delivery Rate 05/28 0953 95 Nasal 4.0L Cannula 05/28 0610 97.7 62 20 140/70 95 Nasal 8L Cannula 05/28 0419 95 Nasal 4.0L Cannula 05/28 0025 76 96 05/28 0000 Nasal 4.0L Cannula 05/27 2330 63 97 05/27 2229 97.9 70 19 142/60 91 Nasal Cannula 05/27 1917 96 Nasal 4.0L Cannula 05/27 1600 92 Nasal 4.0L Cannula 05/27 1509 97.7 65 16 140/90 90 05/27 1355 Nasal 4.0L Cannula Intake & Output 05/28 1600 05/28 0800 05/28 0000 Intake Total 530 360 Output Total Balance 530 360 Intake, IV 50 Intake, Oral 480 360 Exam Other Physical Findings: gen awake and alert heent ncat cvs s1, s2 lungs bilateral wheezing abd obese ext no edema Results Last 24 Hrs of Lab Results: Laboratory Tests 05/28/17 0745: CBC w Diff NO MAN DIFF REQ, RBC 4.55, MCV 86.4, MCH 27.7, MCHC 32.0 L, RDW 13.9 , MPV 10.1, Gran % 83.9 H, Lymphocytes % 9.6 L, Monocytes % 5.2, Eosinophils % 1.0, Basophils % 0.3, Absolute Granulocytes 7.0 H, Absolute Lymphocytes 0.8 L, Absolute Monocytes 0.4, Absolute Eosinophils 0.1, Absolute Basophils 0, [place] 1.0 Impression/Plan Impression/Plan Impression/Plan: Impression 51 year old woman * acute exacerbation of COPD - possible viral vs bacterial process such as an atypical infection * SHIRIN/OHS Plan -continue home bipap settings -ceftriaxone/zithromax -sputum cx -check BNP -solumedrol 40mg iv q8h -discontinue mucomyst -cardiology consultation - recommend diuresis -TRC/Nebs DVT prophylaxis at all times
[2017-05-28 14:28] VITALS: BP 154/62
--- NOTE | 2017-05-28 18:57 | Cons- Cardiology ---
General Information and HPI Consulting Request Date of Consult: 05/28/17 Requested By: Maria L Mg MD History of Present Illness: Danika is a 51 year old female with history of postural orthostatic hypotension recently discovered and initially treated with Midodrine; but to poor effect. She also carries a history of COPD, obstructive sleep apnea, diabetes, TIA and pericarditis s/p pericardial window. Since Saturday, this patient has noted shortness of breath with orthopnea and a cough. She admits to malaise, fever and chills. Her latest chest X-ray shows some pulmonary vascular congestion. The patient denies chest discomfort but continues to have some lightheadedness although it is much improved since beginning Northera. To review this patient's prior history, Danika was last seen in [facility] with shortness of breath, orthopnea and PND. The patient also reported a mild right chest squeezing that radiated toward her back. Her biggest issue was profound lightheadedness with near syncope to true syncope upon arising from a sitting or supine position. Although these symptoms initially improved, the patient nonetheless still reported about 14 episodes of near syncope and was readmitted to the hospital. No arrythmias were found despite a recurrent episode while in the hospital and on the monitor. In consideration of the above she was started on Northera which has helped dramatically. She had only one episode of lightheadedness while on this medication. It should be noted that her supine BP was running high in the 80 range. She does have exertional shortness of breath and some chest discomfort that is unchanged. Her last cardiac catheterization showed a 40% mid LAD lesion that was not thought to be flow limiting. I repeated this cardiac catheterization which showed mild luminal irregularities with normal EF of 60%. He tilt table test was suspicious for autonomic dysfunction. I suspect that this patient may have a dynamic outflow tract obstruction and upon arising her pre-load decreases which worsens the obstruction. LVH has been noted on her echocardiogram with anterior systolic motion of the mitral valve and she has persistent T precordial T wave inversions without chest pain consistent with a hypertrophic cardiomyopathy. Although this patient did have an abnormal stress test this past April, it was followed up with by a cardiac catheterization that showed non-obstructive coronaries according to the patient. We opted to stop any medications that would worsen this situation. As such, I stopped Abilify which is associated with bradycardia and orthostatic hypotension , Lasix and Gabepentin which is associated with peripheral edema and vasodilitation. These changes do seem to have helped. Allergies/Medications Allergies: Coded Allergies: codeine (Severe, ITCH 10/26/16) lemon (Severe, SOB 10/26/16) melatonin (Severe, HIVES/RASH 10/26/16) PER . -CG 07/16/16 propranolol (Severe, SHOCK PER PT 10/26/16) Home Med List: Albuterol Sulfate (Proair Hfa) 90 MCG HFA.AER.AD 2 PUF INH Q4-6 PRN PRN COPD (Reported) Aspirin (Ecotrin*) 81 MG TABLET.DR 1 TAB PO QAM HEART/BLOOD (Reported) Atorvastatin Calcium (Lipitor) 40 MG TABLET 1 TAB PO QPM CHOLESTEROL ( Reported) Budesonide/Formoterol Fumarate (Symbicort 160-4.5 Mcg Inhaler) 10.2 GM HFA.AER.AD 2 PUF INH BID COPD (Reported) Droxidopa (Northera) 100 MG CAPSULE 6 CAP PO TID POTS (Reported) Ergocalciferol (Vitamin D2) (Vitamin D2) 50,000 UNIT CAPSULE 1 CAP PO QTHURS SUPPLEMENT (Reported) Eszopiclone (Lunesta) 3 MG TABLET 1 TAB PO QHS SLEEP (Reported) Fenofibrate Nanocrystallized (Fenofibrate) 145 MG TABLET 1 TAB PO DAILY CHOLESTEROL/TRIGLYCERIDES (Reported) Fluticasone Propionate 16 GM SPRAY.SUSP 2 SPRAY NASB DAILY ALLERGIES ( Reported) Folic Acid 1 MG TABLET 1 TAB PO QAM SUPPLEMENT (Reported) Levothyroxine Sodium 50 MCG TABLET 1 TAB PO DAILY AC THYROID (Reported) Linaclotide (Linzess) 290 MCG CAPSULE 1 CAP PO DAILY CIC (Reported) [place] Carbonate 300 MG CAPSULE 600 MG PO AT BEDTIME bipolar depression [place] Carbonate 300 MG CAPSULE 1 TAB PO 1000 bipolar d/o Meclizine HCl 12.5 MG TABLET 1 TAB PO TID PRN VERTIGO (Reported) Metformin HCl 1,000 MG TABLET 0.5 TAB PO BID DIABETES (Reported) Midodrine HCl 10 MG TABLET 1 TAB PO BID POTS (Reported) Pantoprazole Sodium (Protonix) 40 MG TABLET. 1 TAB PO DAILY GERD (Reported) Ropinirole HCl (Requip) 1 MG TABLET 1.5 TAB PO QPM RLS (Reported) Sertraline HCl 50 MG TABLET 150 MG PO 0800 anti-depressant Review of Systems Review of Systems: luightheadedness Past History Travel History Traveled to [place] past 21 day No Medical History Blood Transfusion Hx: No Neurological: dizziness, peripheral neuropathy, TIA, TRIGEMINAL NEURALGIA NEUROPATHY gait disturbance (uses a walker); ?neurological basis EENT: NONE Cardiovascular: angina (hx "atypical chest pain" ), hypertension, hyperlipidemia , HIGH TRYGLCERIDES recent cardiac catheterizations were negative for occlusive coronary artery disease PERICARDITIS Respiratory: pneumonia, COPD, OBSSLEEP BIPAP Gastrointestinal: ACID REFLUX CHRONIC/IDEOPA ABDOMINAL HERNIA Renal: NONE Musculoskeletal: R ANKLE FX AND REPAIR Psychiatric: anxiety, bipolar disease, depression, opioid dependence, substance abuse (possible benzo. 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 MOTHER (CHF, COPD). Psychosocial History Where Do You Live? Home Who Do You Live With? self Services at Home: Home Health Aide, Nursing Primary Language: Korean Smoking Status: Current Everyday Smoker ETOH Use: denies use Illicit Drug Use: denies illicit drug use Functional Ability ADLs Independent: dressing, eating, toileting, bathing. Ambulation: walker IADLs Independent: shopping, housework, finances, food prep, telephone, transportation , medication admin. ECHO Results (as available) Report: Normal left ventricular l size and contractility with moderate left ventricular hypertrophy. No significant valvular abnormalities. Exam & Diagnostic Data Vital Signs and I&O Vital Signs Date Time Temp Pulse Resp B/P B/P Pulse O2 O2 Flow FiO2 Mean Ox Delivery Rate 05/28 2023 92 Nasal 4.0L Cannula 05/28 1600 95 Nasal 4.0L Cannula 05/28 1428 98.4 69 20 154/62 91 05/28 1337 93 Nasal 4.0L Cannula 05/28 0953 95 Nasal 4.0L Cannula 05/28 0800 95 Nasal 4.0L Cannula 05/28 0610 97.7 62 20 140/70 95 Nasal 8L Cannula 05/28 0419 95 Nasal 4.0L Cannula 05/28 0025 76 96 05/28 0000 Nasal 4.0L Cannula 05/27 2330 63 97 05/27 2229 97.9 70 19 142/60 91 Nasal Cannula Intake & Output 05/28 0000 05/27 1600 05/27 0000 Intake Total 340 530 360 100 700 Output Total Balance 340 530 360 100 700 Intake, IV 50 0 Intake, Oral 340 480 360 100 700 Number 0 Bowel Movements Physical Exam: General: WD/WN female in NAD; alert and oriented x 3 HEENT: NC/AT, PERRL, EOMI Neck: no JVD, no carotid bruit Heart: RRR w/o murmur Lungs; decreased air movement without crackles; expiratory wheezing noted bilaterally Abdomen: soft, NT, +ve bowel sounds Extemities: no edema Assessment/Plan Assessment/Plan * This patient does not appear to have decompensated CHF although her chest X- ray results are noted. It is reasonable to try Lasix 40mg IV x one dose but I would not be inclined to give any more than this without clear evidence of decompensated CHF. This patient has had sevious issues with syncope and lightheadedness and continues to be lightheaded. We have made efforts to avoid overdiuresis to minimize this issue. Consult Acknowledgment - Thank you for your consult request.
[2017-05-28 22:08] VITALS: BP 144/78
--- NOTE | 2017-05-29 07:30 | PN- Housestaff ---
See Addendum Subjective Follow-up For: #Pneumonia pending rule out #Right pleural effusion #Lethargy and altered mental status #COPD Subjective: No overnight event. Patient was sleeping when I entered. Review of Systems Constitutional: Reports: see HPI. Objective Last 24 Hrs of Vital Signs/I&O Vital Signs Date Time Temp Pulse Resp B/P B/P Pulse O2 O2 Flow FiO2 Mean Ox Delivery Rate 05/29 746 98.1 60 20 140/88 99 05/29 0606 94 05/29 0236 92 05/29 0113 68 89 05/29 0000 Nasal 4.0L Cannula 05/28 2217 67 92 05/28 2208 98.0 63 20 144/78 91 05/28 2024 92 Nasal 4.0L Cannula 05/28 1600 95 Nasal 4.0L Cannula 05/28 1428 98.4 69 20 154/62 91 05/28 1337 93 Nasal 4.0L Cannula 05/28 0953 95 Nasal 4.0L Cannula Intake & Output 05/29 1600 05/29 0800 05/29 0000 Intake Total 300 300 Output Total Balance 300 300 Intake, Oral 300 300 Physical Exam General Appearance: No Acute Distress, Pt was sleeping Cardiovascular: Regular Rate Lungs: Normal Air Movement, Mild expiratory wheeze on Right mid lung Extremities: No Cyanosis, No Edema, Normal Pulses Current Medications: Current Medications Sig/Ralph Start time Last Medication Dose Route Stop Time Status Admin Acetaminophen 650 MG Q6P PRN / 1445 AC PO Acetylcysteine 4 ML BID 05/26 2200 DC 05/28 INH 0945 Albuterol Sulfate 3 ML EVERY 4 HRS/AWAKE 05/28 1200 AC 05/28 INH 202 Albuterol Sulfate 3 ML TID 05/26 1000 DC 05/28 INH 0945 Albuterol Sulfate 2 PUF Q4-6 PRN PRN / 1515 AC 05/28 INH 2101 Artificial Tears 2 GTT 4 TIMES/DAY PRN 05/27 0400 AC 05/27 OPH 0853 Aspirin Buffered 81 MG QAM /04 1000 AC 05/28 PO 0919 Atorvastatin Calcium 40 MG QPM / 2200 AC 02/ PO 211 Azithromycin 500 MG DAILY@1430 02/ 1430 AC 05/28 Dextrose/Water 250 ML IV 1403 Benzonatate 100 MG TID 05/27 1124 AC 05/28 PO 2115 Budesonide/ 2 PUF BID 05/25 2200 AC 05/28 Formoterol Fumarate INH 2114 Ceftriaxone Sodium 1,000 MG DAILY@1430 05/26 1430 AC 05/28 IV 1402 Docusate Sodium 100 MG BID 05/25 2200 AC 05/27 PO 2050 Droxidopa 600 MG TID 05/25 1600 AC 05/28 PO 2102 Enoxaparin Sodium 40 MG DAILY 05/25 1431 AC 05/28 SC 0921 Fenofibrate 145 MG DAILY 05/26 1000 AC 05/28 PO 0920 Fluticasone 2 SPRAY DAILY 05/27 1000 AC 05/27 Propionate TRUMAN 1339 Folic Acid 1 MG QAM 05/26 1000 AC 05/28 PO 0918 Guaifenesin 10 ML .STK-MED ONE 05/28 194 DC PO 05/28 1942 Guaifenesin 10 ML Q6P PRN 05/27 2045 AC 05/29 PO 0525 Guaifenesin 600 MG Q12 05/27 1124 AC 05/28 PO 2108 Guaifenesin/ 10 ML .STK-MED ONE 05/28 0924 DC Dextromethorphan PO 05/28 0925 Ibuprofen 400 MG Q6P PRN 05/25 1445 AC 05/26 PO 0829 Insulin Aspart 0 TIDAC 05/25 1700 AC 05/28 SC 1719 Ipratropium [place] 2.5 ML EVERY 4 HRS/AWAKE 05/28 1200 AC 05/28 INH 2023 Levothyroxine Sodium 0.05 MG DAILY AC 05/26 0700 AC 05/29 PO 0526 Linaclotide 290 MCG DAILY 05/27 1000 AC 05/28 PO 0921 [place] Carbonate 300 MG 1000 05/26 1000 AC 05/28 PO 0920 [place] Carbonate 600 MG AT BEDTIME 05/25 2200 AC 05/28 PO 2107 Meclizine HCl 12.5 MG TID PRN 05/25 1515 AC PO Methylprednisolone 40 MG Q12 05/28 2200 DC IV Methylprednisolone 40 MG Q8 05/28 1400 AC 05/29 IV 0525 Methylprednisolone 40 MG Q8 05/26 1400 DC /06 IV 0616 Midodrine 10 MG BID 05/25 2200 AC 05/28 PO 2105 Omeprazole 40 MG DAILY AC 05/28 1054 AC 05/29 PO 0526 Ropinirole HCl 1.5 MG QPM 05/250 AC 05/28 PO 2103 Sertraline HCl 150 MG 0800 05/26 0800 AC 05/28 PO 09 Zolpidem Tartrate 5 MG AT BEDTIME 05/25 2199 AC 05/28 PO 2112 Last 24 Hrs of Lab/Matthieu Results Last 24 Hrs of Labs/Mics: Laboratory Tests 05/29/17 0800: CBC w Diff Pending, WBC Pending, RBC Pending, Hgb Pending, Hct Pending, MCV Pending, MCH Pending, MCHC Pending, RDW Pending, Plt Count Pending, MPV Pending Assessment/Plan Assessment: Ms. Virgen, is a 51-year-old female with significant past medical history of COPD [on 2 L of oxygen at night with CPAP], coronary artery disease [40% LAD stenosis, [id number]], orthostatic hypotension, obstructive sleep apnea [ compliant with her CPAP, follows Dr. Wall], diabetes, pericarditis status post pericardial window, bipolar depression, restless leg syndrome, TIA, hypothyroidism, and recurrent supratentorial syncopal episodes who presents to the hospital emergency department with complaints of dyspnea and cough. Vitals on admission temperature 100.2, pulse rate 90, blood pressure 167/72 saturating 77% on room air which went up to the mid 90s on 4 L. Chest x-ray revealed a pattern of pneumonitis versus interstitial edema. Her flu cultures currently pending. Labs were relatively unremarkable. Venous blood gas revealed 7.39/43/47. In the emergency department she received albuterol nebulizer as well as 125 mg of Solu-Medrol. She was started them. On ceftriaxone and azithromycin. Problem list/assessment and plan #Acute COPD exacerbation * Flu negative * Given her last echo, and no hx of CHF, less likely that her BL infiltrates are cardiac in etiology. * TRC/Nebs with incentive spirometry * Continue Ceftriaxone + Zithro x 5d, currently day 4. * Continue Solumedrol 40 q8, with plans to titrate to PO prednisone taper, pending Pulm recommendations. * continue 4L O2 via nasal canula + Nocturnal CPAP, and titrate down as tolerated with a goal oxygen saturation of greater than 92%. Baseline 2LNC norcturnal at home. - Cardio consult recommended Lasix 40mg x 1 and no more than this as patient had issues with syncope and lightheadedness and continues to be lightheaded. We have made efforts to avoid overdiuresis to minimize this issue. Decompensated CHF was not likely in this patient as low proBNP and normal Echo from 12/2016, and without significant signs of pulmonary edema. We continued all her home medications except for her metformin and place her on a NovoLog sliding scale with fingerstick measurements TIDAC/HS Full code Consistent carb 2 Lovenox for DVT prophylaxis Pain pathway as ordered Problem List: 1. COPD with acute exacerbation Pain Ratin Pain Location: NA Pain Goal: Remain pain free Pain Plan: see AP Tomorrow's Labs & Rationales: NA
[2017-05-29 07:47] VITALS: BP 140/88
[2017-05-29 09:06] LABS: ABSOLUTE BASOPHIL COUNT 0 /CUMM (0.0-0.2); ABSOLUTE EOSINOPHIL COUNT 0.1 /CUMM (0.0-0.7); ABSOLUTE GRANULOCYTE CT 10.4 /CUMM (1.4-6.5); ABSOLUTE LYMPH COUNT 1.2 /CUMM (1.2-3.4); ABSOLUTE MONOCYTE COUNT 0.5 /CUMM (0.10-0.60); BASOPHIL % 0.2 % (0.0-2.0); EOSINOPHIL % 0.4 % (0-5); HEMATOCRIT 39.5 % (37-47); MEAN CORPUSCULAR HGB 27.8 PG (27.0-31.0); MEAN CORPUSCULAR HGB CONC 32.2 G/DL (33.0-37.0); MEAN CORPUSCULAR VOLUME 86.3 FL (81.0-99.0); MEAN PLATELET VOLUME 9.9 FL (7.4-10.4); PLATELET COUNT 367 /CUMM (130-400); RBC DISTRIBUTION WIDTH 13.4 % (11.5-14.5); RED BLOOD CELL CT 4.58 /CUMM (4.20-5.40); WHITE BLOOD CELL COUNT 12.1 /CUMM (4.8-10.8)
[2017-05-29 09:39] LABS: GRANULOCYTE % 86.1 % (42.2-75.2)
--- NOTE | 2017-05-29 11:35 | PN- Pulmonary ---
Subjective HPI/Critical Care Issues: Patient seen and examined. She appears to be doing somewhat better. Objective Current Medications: Current Medications Sig/Ralph Start time Last Medication Dose Route Stop Time Status Admin Acetaminophen 650 MG Q6P PRN / 1445 AC PO Acetylcysteine 4 ML BID 05/26 2200 DC 05/28 INH 0945 Albuterol Sulfate 3 ML EVERY 4 HRS/AWAKE 02/ 1200 AC 05/29 INH 0849 Albuterol Sulfate 3 ML TID / 1000 DC 05/28 INH 0945 Albuterol Sulfate 2 PUF Q4-6 PRN PRN 05/25 1515 AC 05/28 INH 2101 Artificial Tears 2 GTT 4 TIMES/DAY PRN 05/27 0400 AC 05/27 OPH 0853 Aspirin Buffered 81 MG QAM 05/26 1000 AC 05/29 PO 0958 Atorvastatin Calcium 40 MG QPM / 2200 AC 05/28 PO 2111 Azithromycin 500 MG DAILY@1430 02/04 1430 AC 05/28 Dextrose/Water 250 ML IV 1403 Benzonatate 100 MG TID 05/27 1124 AC 05/29 PO 0959 Budesonide/ 2 PUF BID 05/25 2200 AC 05/29 Formoterol Fumarate INH 0959 Ceftriaxone Sodium 1,000 MG DAILY@1430 /04 1430 AC 05/28 IV 1402 Docusate Sodium 100 MG BID 05/25 2200 AC 05/27 PO 2050 Droxidopa 600 MG TID / 1600 AC 05/29 PO 0957 Enoxaparin Sodium 40 MG DAILY / 1431 AC / SC 0957 Fenofibrate 145 MG DAILY 05/26 1000 AC 05/29 PO 0959 Fluticasone 2 SPRAY DAILY 05/27 1000 AC 05/29 Propionate TRUMAN 0958 Folic Acid 1 MG QAM 05/26 1000 AC 05/29 PO 0958 Furosemide 40 MG ONCE ONE 05/29 1000 DC / IV 05/29 1001 1011 Guaifenesin 10 ML .STK-MED ONE 05/28 1940 DC PO 05/28 194 Guaifenesin 10 ML Q6P PRN 05/27 2045 AC 05/29 PO 0525 Guaifenesin 600 MG Q12 05/27 1124 AC 05/29 PO 0959 Ibuprofen 400 MG Q6P PRN 05/25 1445 AC 05/26 PO 0829 Insulin Aspart 0 TIDAC 05/25 1700 AC 05/28 SC 1719 Ipratropium [place] 2.5 ML EVERY 4 HRS/AWAKE 05/28 1200 AC 05/29 INH 0848 Levothyroxine Sodium 0.05 MG DAILY AC 05/26 0700 AC 05/29 PO 0526 Linaclotide 290 MCG DAILY 05/27 1000 AC 05/29 PO 0958 [place] Carbonate 300 MG 1000 05/26 1000 AC 05/29 PO 0958 [place] Carbonate 600 MG AT BEDTIME 05/25 2200 AC 05/28 PO 2107 Meclizine HCl 12.5 MG TID PRN 05/25 1515 AC PO Methylprednisolone 40 MG Q12 05/28 2200 DC IV Methylprednisolone 40 MG Q8 05/28 1400 AC 05/29 IV 0525 Midodrine 10 MG BID 05/25 2200 AC 05/29 PO 0959 Omeprazole 40 MG DAILY AC 05/28 1054 AC 05/29 PO 0526 Ropinirole HCl 1.5 MG QPM 05/25 2200 AC 05/28 PO 2104 Sertraline HCl 150 MG 0800 05/26 0800 AC 05/29 PO 0957 Zolpidem Tartrate 5 MG AT BEDTIME 05/25 2200 AC 05/28 PO 2113 Vital Signs & I&O Last 24 Hrs of Vitals and I&O: Vital Signs Date Time Temp Pulse Resp B/P B/P Pulse O2 O2 Flow FiO2 Mean Ox Delivery Rate 05/29 1048 Nasal 4.0L Cannula 05/29 0857 97 Nasal 4.0L Cannula 05/29 0800 Nasal 4.0L Cannula 05/29 0747 98.1 60 20 140/88 99 05/29 0606 94 05/29 0236 92 05/29 0113 68 89 05/29 0000 Nasal 4.0L Cannula 05/28 2217 67 92 05/28 2208 98.0 63 20 144/78 91 05/28 2023 92 Nasal 4.0L Cannula 05/28 1600 95 Nasal 4.0L Cannula 05/28 1428 98.4 69 20 154/62 91 05/28 1337 93 Nasal 4.0L Cannula Intake & Output 05/29 1600 05/29 0800 05/29 0000 Intake Total 300 300 Output Total Balance 300 300 Intake, Oral 300 300 Exam Other Physical Findings: gen awake and alert heent ncat cvs s1, s2 lungs bilateral wheezing abd obese ext no edema Results Last 24 Hrs of Lab Results: Laboratory Tests 05/29/17 0800: CBC w Diff NO MAN DIFF REQ, RBC 4.58, MCV 86.3, MCH 27.8, MCHC 32.2 L, RDW 13.4 , MPV 9.9, Gran % 86.1 H, Lymphocytes % 9.5 L, Monocytes % 3.8, Eosinophils % 0.4, Basophils % 0.2, Absolute Granulocytes 10.4 H, Absolute Lymphocytes 1.2, Absolute Monocytes 0.5, Absolute Eosinophils 0.1, Absolute Basophils 0 Impression/Plan Impression/Plan Impression/Plan: Impression 51 year old woman * acute exacerbation of COPD - possible viral vs bacterial process such as an atypical infection * SHIRIN/OHS Plan -continue home bipap settings -ceftriaxone/zithromax -sputum cx -check BNP -continue solumedrol 40mg iv q8h -cardiology consultation - recommended diuresis - give lasix 40mg x 1 iv -TRC/Nebs DVT prophylaxis at all times
[2017-05-29 14:29] VITALS: BP 130/75
--- NOTE | 2017-05-29 17:34 | PN- Cardiology ---
Subjective Subjective: * Very persistent cough which is worse with deep inhalation. No improvement in shortness of breath. * Mildly increased WBC count on steroids Objective Vital Signs and I&Os Vital Signs Date Time Temp Pulse Resp B/P B/P Pulse O2 O2 Flow FiO2 Mean Ox Delivery Rate 05/29 1609 95 Nasal 4.0L Cannula 05/29 1429 98.7 67 20 130/75 88 05/29 1228 88 Nasal 3.0L Cannula 05/29 1048 Nasal 4.0L Cannula 05/29 0857 97 Nasal 4.0L Cannula 05/29 0800 Nasal 4.0L Cannula 05/29 0747 98.1 60 20 140/88 99 05/29 0606 94 05/29 0236 92 05/29 0113 68 89 05/29 0000 Nasal 4.0L Cannula 05/28 2217 67 92 05/28 2208 98.0 63 20 144/78 91 05/28 202 92 Nasal 4.0L Cannula Intake & Output 05/29 1600 05/29 0800 05/29 0000 05/28 1600 05/28 0800 05/28 0000 Intake Total 580 300 300 340 530 360 Output Total 1000 Balance -420 300 300 340 530 360 Intake, IV 50 Intake, Oral 580 300 300 340 480 360 Output, Urine 1000 Physical Exam: General: WD/WN female in NAD; alert and oriented x 3 HEENT: NC/AT, PERRL, EOMI Neck: no JVD, no carotid bruit Heart: RRR w/o murmur Lungs; decreased air movement without crackles; expiratory wheezing noted bilaterally Abdomen: soft, NT, +ve bowel sounds Extemities: no edema Assessment/Plan Assessment/Plan * This patient has symptoms consistent with a viral syndrome. It is possible that there is some superimposed congestive heart failure as well but I would like to be a bit more convinced before diuresing her more aggessively since this patient has both an outflow tract obstruction and has had issues with hypotension. Agree with obtaining a BNP ( brain natriuretic peptide.) If elevated we will add Lasix. Her last level on 05/26 was very low. Continue telemetry? No
[2017-05-29 20:50] VITALS: BP 150/80
[2017-05-30 07:34] VITALS: BP 148/62
--- NOTE | 2017-05-30 08:07 | PN- Housestaff ---
Marco AClementine 05/30/17 0803: Subjective Follow-up For: #Viral/bacterial bronchitis? #COPD exacerbation Subjective: No overnighte event. Patient was siting at bedside coughing when I entered. Patient felt generally improved and admitted that although she coughed alot, she felt the coughing was much clear without congestion. However no sputum was coming out yet. Review of Systems Constitutional: Reports: see HPI. Objective Last 24 Hrs of Vital Signs/I&O Vital Signs Date Time Temp Pulse Resp B/P B/P Pulse O2 O2 Flow FiO2 Mean Ox Delivery Rate 05/30 733 98.0 66 20 148/62 93 Nasal 4.0L Cannula 05/30 0614 90 Nasal 4.0L Cannula 05/29 2244 74 93 05/29 2141 91 Nasal 4.0L Cannula 05/29 2050 97.9 75 22 150/80 91 Nasal 4.0L Cannula 05/29 1609 95 Nasal 4.0L Cannula 05/29 1600 Nasal 4.0L Cannula 05/29 1429 98.7 67 20 130/75 88 05/29 1228 88 Nasal 3.0L Cannula 05/29 1048 Nasal 4.0L Cannula 05/29 0857 97 Nasal 4.0L Cannula Intake & Output 05/30 1600 05/30 0800 05/30 0000 Intake Total 250 260 Output Total Balance 250 260 Intake, IV 10 20 Intake, Oral 240 240 Physical Exam General Appearance: Alert, Oriented X3, Cooperative, Mild Distress, coughing, on 4L NC Cardiovascular: Regular Rate Lungs: Normal Air Movement, bilateral wheezing about the same from last day. Extremities: No Cyanosis, No Edema, Normal Pulses Current Medications: Current Medications Sig/Ralph Start time Last Medication Dose Route Stop Time Status Admin Acetaminophen 650 MG Q6P PRN 05/25 1445 AC PO Albuterol Sulfate 3 ML EVERY 4 HRS/AWAKE 05/28 1200 AC 05/30 INH 0612 Albuterol Sulfate 2 PUF Q4-6 PRN PRN 05/25 1515 AC 05/28 INH 2101 Artificial Tears 2 GTT 4 TIMES/DAY PRN 05/27 0400 AC 05/27 OPH 0853 Aspirin Buffered 81 MG QAM 05/26 1000 AC 05/29 PO 0958 Atorvastatin Calcium 40 MG QPM 05/25 2200 AC 05/29 PO 2110 Azithromycin 500 MG DAILY@1430 05/26 1430 AC 05/29 Dextrose/Water 250 ML IV 1406 Benzonatate 100 MG TID 05/27 1124 AC 05/29 PO 2109 Budesonide/ 2 PUF BID 05/25 2200 AC 05/29 Formoterol Fumarate INH 2114 Ceftriaxone Sodium 1,000 MG DAILY@1430 /04 1430 AC 05/29 IV 1406 Docusate Sodium 100 MG BID 05/25 2200 AC 05/27 PO 2050 Droxidopa 600 MG TID 05/25 1600 AC 05/29 PO 2111 Enoxaparin Sodium 40 MG DAILY 05/25 1431 AC 05/29 SC 0957 Fenofibrate 145 MG DAILY 05/26 1000 AC 05/29 PO 0959 Fluticasone 2 SPRAY DAILY 05/27 1000 AC 05/29 Propionate TRUMAN 0958 Folic Acid 1 MG QAM 05/26 1000 AC 05/29 PO 0958 Furosemide 40 MG ONCE ONE 05/29 1000 DC 05/29 IV 05/29 1001 1011 Guaifenesin 10 ML Q6P PRN 05/27 2045 AC 05/29 PO 0525 Guaifenesin 600 MG Q12 05/27 1124 AC 05/29 PO 2110 Ibuprofen 400 MG .STK-MED ONE 05/29 1418 DC PO 05/29 1419 Ibuprofen 400 MG Q6P PRN 05/25 1445 AC 05/29 PO 1418 Insulin Aspart 0 TIDAC 05/25 1700 AC 05/29 SC 1756 Ipratropium [place] 2.5 ML EVERY 4 HRS/AWAKE 05/28 1200 AC 05/30 INH 0613 Levothyroxine Sodium 0.05 MG DAILY AC 05/26 0700 AC 05/30 PO 0555 Linaclotide 290 MCG DAILY 05/27 1000 AC 05/29 PO 0958 [place] Carbonate 300 MG 1000 05/26 1000 AC 05/29 PO 0958 [place] Carbonate 600 MG AT BEDTIME 05/25 2200 AC 05/29 PO 2110 Meclizine HCl 12.5 MG TID PRN 05/25 1515 AC PO Methylprednisolone 40 MG Q8 05/28 1400 AC 05/30 IV 0554 Midodrine 10 MG BID 05/25 2200 AC 05/29 PO 2110 Omeprazole 40 MG DAILY AC 05/28 1054 AC 05/30 PO 0554 Ropinirole HCl 1.5 MG QPM 05/25 2199 AC 05/29 PO 2108 Sertraline HCl 150 MG 0800 05/26 0800 AC 05/29 PO 09 Zolpidem Tartrate 5 MG AT BEDTIME 05/25 2199 AC 05/29 PO 2108 Assessment/Plan Assessment: Ms. Virgen, is a 51-year-old female with significant past medical history of COPD [on 2 L of oxygen at night with CPAP], coronary artery disease [40% LAD stenosis, [id number]], orthostatic hypotension, obstructive sleep apnea [ compliant with her CPAP, follows Dr. Wall], diabetes, pericarditis status post pericardial window, bipolar depression, restless leg syndrome, TIA, hypothyroidism, and recurrent supratentorial syncopal episodes who presents to the hospital emergency department with complaints of dyspnea and cough. Vitals on admission temperature 100.2, pulse rate 90, blood pressure 167/72 saturating 77% on room air which went up to the mid 90s on 4 L. Chest x-ray revealed a pattern of pneumonitis versus interstitial edema. Her flu cultures currently pending. Labs were relatively unremarkable. Venous blood gas revealed 7.39/43/47. In the emergency department she received albuterol nebulizer as well as 125 mg of Solu-Medrol. She was started them. On ceftriaxone and azithromycin. Problem list/assessment and plan #Acute COPD exacerbation * Flu negative * Given her last echo, and no hx of CHF, less likely that her BL infiltrates are cardiac in etiology. Lasix 40mg x 1 was given 05/29. * TRC/Nebs with incentive spirometry * Continue Ceftriaxone + Zithro x 5d, currently day 4. * Continue Solumedrol 40 tapered to q12, with plans to titrate to PO prednisone taper, pending Pulm recommendations. * continue 4L O2 via nasal canula + Nocturnal CPAP, and titrate down as tolerated with a goal oxygen saturation of greater than 92%. Baseline 2LNC norcturnal at home. - Cardio consult recommended Lasix 40mg x 1 and no more than this as patient had issues with syncope and lightheadedness and continues to be lightheaded. We have made efforts to avoid overdiuresis to minimize this issue. Decompensated CHF was not likely in this patient as low proBNP and normal Echo from 12/2016, and without significant signs of pulmonary edema. We continued all her home medications except for her metformin and place her on a NovoLog sliding scale with fingerstick measurements TIDAC/HS Full code Consistent carb 2 Lovenox for DVT prophylaxis Pain pathway as ordered Problem List: 1. COPD with acute exacerbation Pain Ratin Pain Location: NA Pain Goal: Remain pain free Pain Plan: see AP Tomorrow's Labs & Rationales: MYLES Maria L Mg 05/30/17 1216: Attending MD Review Statement Attending Statement Attending MD Statement: examined this patient, discuss w/resident/PA/MAJOR ASSEMBLY INSPECTOR, agreed w/resident/PA/MAJOR ASSEMBLY INSPECTOR, discussed with family, reviewed EMR data (avail), discussed with nursing, discussed with case mgmt, reviewed images, amended to note Attending Assessment/Plan: 81-year-old female extensive past medical history including diabetes, hypertension, pericardial effusion with a window in the past, hyperlipidemia, COPD and obstructive sleep apnea uses CPAP at night and follows with Dr. Wall as an outpatient admitted with COPD exacerbation and acute on chronic respiratroy failure. Patient seen/examined bedside. Patient feeling short of breath, minimal use of accessory muscles, remains on 4l of oxygen supplementation. Chest xray with possiblity of interstitial edema or atypical pneumonitis. B/l wheezing + with much improvemnt over past couple of days. Continue with IV steroids, TRC with nebs and treat her as a community-acquired pneumonia, abx, likely atypical. Titrate oxygen if possible. RISS and titrate insulin as needed. Pulmonary following. Cardiology f/u, BNP 109, ECHO as per cardiology. cont current care.. gi/dvt prophyalxis full code.
--- NOTE | 2017-05-30 12:17 | PN- Pulmonary ---
Subjective HPI/Critical Care Issues: pt seen and examined some improvement Objective Current Medications: Current Medications Sig/Ralph Start time Last Medication Dose Route Stop Time Status Admin Acetaminophen 650 MG Q6P PRN / 1445 AC PO Albuterol Sulfate 3 ML EVERY 4 HRS/AWAKE 05/28 1200 AC 05/30 INH 1155 Albuterol Sulfate 2 PUF Q4-6 PRN PRN 02/ 1515 AC 05/28 INH 2101 Artificial Tears 2 GTT 4 TIMES/DAY PRN 05/27 0400 AC 05/27 OPH 0853 Aspirin Buffered 81 MG QAM / 1000 AC 05/30 PO 0838 Atorvastatin Calcium 40 MG QPM / 2200 AC 05/29 PO 2110 Azithromycin 500 MG DAILY@1430 05/26 1430 AC 05/29 Dextrose/Water 250 ML IV 1406 Benzonatate 100 MG TID 05/27 1124 AC 05/30 PO 0837 Budesonide/ 2 PUF BID 05/25 2200 AC 05/30 Formoterol Fumarate INH 0840 Ceftriaxone Sodium 1,000 MG DAILY@1430 05/26 1430 AC 05/29 IV 1406 Docusate Sodium 100 MG BID 05/25 2200 AC 05/27 PO 2050 Droxidopa 600 MG TID / 1600 AC 05/30 PO 0840 Enoxaparin Sodium 40 MG DAILY / 1431 AC 05/30 SC 0839 Fenofibrate 145 MG DAILY 05/26 1000 AC 05/30 PO 0837 Fluticasone 2 SPRAY DAILY 05/27 1000 AC 05/30 Propionate TRUMAN 0841 Folic Acid 1 MG QAM 05/26 1000 AC 05/30 PO 0838 Guaifenesin 10 ML Q6P PRN 05/27 2045 AC 05/29 PO 0525 Guaifenesin 600 MG Q12 05/27 1124 AC 05/30 PO 0838 Ibuprofen 400 MG .STK-MED ONE 05/29 1418 DC PO 05/29 1419 Ibuprofen 400 MG Q6P PRN / 1445 AC 05/29 PO 1418 Insulin Aspart 0 TIDAC 05/25 1700 AC 05/29 SC 1756 Ipratropium [place] 2.5 ML EVERY 4 HRS/AWAKE 05/28 1200 AC 05/30 INH 1155 Levothyroxine Sodium 0.05 MG DAILY AC 05/26 0700 AC 05/30 PO 0555 Linaclotide 290 MCG DAILY 05/27 1000 AC 05/30 PO 0839 [place] Carbonate 300 MG 1000 05/26 1000 AC 05/30 PO 0838 [place] Carbonate 600 MG AT BEDTIME 05/25 2200 AC 05/29 PO 2110 Meclizine HCl 12.5 MG TID PRN 05/25 1515 AC PO Methylprednisolone 40 MG Q8 05/28 1400 AC 05/30 IV 0554 Midodrine 10 MG BID 05/25 2200 AC 05/30 PO 0837 Omeprazole 40 MG DAILY AC 05/28 1054 AC 05/30 PO 0554 Ropinirole HCl 1.5 MG QPM 05/25 2200 AC 05/29 PO 2109 Sertraline HCl 150 MG 0800 05/26 0800 AC 05/30 PO 0839 Zolpidem Tartrate 5 MG AT BEDTIME 05/25 2200 AC 05/29 PO 2109 Vital Signs & I&O Last 24 Hrs of Vitals and I&O: Vital Signs Date Time Temp Pulse Resp B/P B/P Pulse O2 O2 Flow FiO2 Mean Ox Delivery Rate 05/30 733 98.0 66 20 148/62 93 Nasal 4.0L Cannula 05/30 0614 90 Nasal 4.0L Cannula 05/29 2244 74 93 05/29 2141 91 Nasal 4.0L Cannula 05/29 2050 97.9 75 22 150/80 91 Nasal 4.0L Cannula 05/29 1609 95 Nasal 4.0L Cannula 05/29 1600 Nasal 4.0L Cannula 05/29 1429 98.7 67 20 130/75 88 05/29 1228 88 Nasal 3.0L Cannula Intake & Output 05/30 1600 05/30 0800 05/30 0000 Intake Total 250 260 Output Total 700 Balance -700 250 260 Intake, IV 10 20 Intake, Oral 240 240 Output, Urine 700 Patient 181 lb Weight Exam Other Physical Findings: gen awake and alert heent ncat cvs s1, s2 lungs bilateral wheezing abd obese ext no edema Results Last 24 Hrs of Lab Results: Laboratory Tests 05/30/17 0820: Anion Gap 17 H, Estimated GFR > 60, BUN/Creatinine Ratio 40.0 H, Pro-B- Natriuretic Pept 77.1 Impression/Plan Impression/Plan Impression/Plan: Impression 51 year old woman * acute exacerbation of COPD - possible viral vs bacterial process such as an atypical infection * SHIRIN/OHS Plan -continue home bipap settings -ceftriaxone/zithromax -sputum cx -check BNP -reduce solumedrol 40mg iv q12h -cardiology consultation noted -TRC/Nebs DVT prophylaxis at all times
[2017-05-30 14:56] VITALS: BP 130/90
--- NOTE | 2017-05-30 17:41 | PN- Cardiology ---
Subjective Subjective: * Breathing is improved but not back to baseline. Objective Vital Signs and I&Os Vital Signs Date Time Temp Pulse Resp B/P B/P Pulse O2 O2 Flow FiO2 Mean Ox Delivery Rate 05/30 1557 96 Nasal 4.0L Cannula 05/30 1456 98.0 66 21 130/90 95 05/30 0800 93 Nasal 4.0L Cannula 05/30 0734 98.0 66 20 148/62 93 Nasal 4.0L Cannula 05/30 0614 90 Nasal 4.0L Cannula 05/29 2244 74 93 05/29 2141 91 Nasal 4.0L Cannula 05/290 97.9 75 22 150/80 91 Nasal 4.0L Cannula Intake & Output 05/30 1600 05/30 0800 05/30 0000 05/29 1600 05/29 0000 Intake Total 240 250 260 580 300 300 Output Total 900 1000 Balance -660 250 260 -420 300 300 Intake, IV 10 20 Intake, Oral 240 240 240 580 300 300 Output, Urine 900 1000 Patient 181 lb Weight Physical Exam: General: WD/WN female in NAD; alert and oriented x 3 HEENT: NC/AT, PERRL, EOMI Neck: no JVD, no carotid bruit Heart: RRR w/o murmur Lungs; decreased air movement without crackles; expiratory wheezing noted bilaterally Abdomen: soft, NT, +ve bowel sounds Extemities: no edema Assessment/Plan Assessment/Plan * This patient has symptoms consistent with a viral syndrome. She has a very low BNP and no clinical evidence of decompensated heart failure. In considertion of her outflow tract obstruction and hypotension I would not begin Lasix. * This patient is on Northera. Do not substitue another medication. She can take her own if she goes to rehab. Continue telemetry? No
[2017-05-30 22:06] VITALS: BP 140/76
[2017-05-31 06:52] VITALS: BP 126/88
--- NOTE | 2017-05-31 08:52 | PN- Housestaff ---
Marco AClementine 05/31/17 0847: Subjective Follow-up For: #Viral/bacterial bronchitis? #COPD exacerbation Subjective: No overnight event. Patient was off oxygen with O2 sat about 88% however was advised to taper oxygen slowly and was put back on 2L NC. No other complaint. Review of Systems Constitutional: Reports: see HPI. Objective Last 24 Hrs of Vital Signs/I&O Vital Signs Date Time Temp Pulse Resp B/P B/P Pulse O2 O2 Flow FiO2 Mean Ox Delivery Rate 05/31 816 93 Nasal 2.0L Cannula 05/31 0652 98.5 58 24 126/88 99 Nasal 4.0L Cannula 05/31 0007 66 96 05/31 0000 96 Nasal 4.0L Cannula 05/30 2256 66 98 05/30 2206 98.5 69 24 140/76 95 Nasal 4.0L Cannula 05/30 1600 96 Nasal 4.0L Cannula 05/30 1557 96 Nasal 4.0L Cannula 05/30 1456 98.0 66 21 130/90 95 Intake & Output 05/31 1600 05/31 0800 05/31 0000 Intake Total 250 1000 Output Total Balance 250 1000 Intake, IV 10 Intake, Oral 240 1000 Number 1 3 Bowel Movements Physical Exam General Appearance: Alert, Oriented X3, Cooperative, Mild Distress Cardiovascular: Regular Rate Lungs: Normal Air Movement, Bilateral expiratory wheeze Abdomen: Normal Bowel Sounds, Soft, No Tenderness Extremities: No Edema, Normal Pulses Current Medications: Current Medications Sig/Ralph Start time Last Medication Dose Route Stop Time Status Admin Acetaminophen 650 MG Q6P PRN 05/25 1445 AC PO Albuterol Sulfate 3 ML EVERY 4 HRS/AWAKE / 1200 AC 05/31 INH 0817 Albuterol Sulfate 2 PUF Q4-6 PRN PRN 05/25 1515 AC 05/28 INH 2101 Artificial Tears 2 GTT 4 TIMES/DAY PRN 05/27 0400 AC 05/27 OPH 0853 Aspirin Buffered 81 MG QAM / 1000 AC 05/31 PO 0834 Atorvastatin Calcium 40 MG QPM 05/25 2200 AC 05/30 PO 2208 Azithromycin 500 MG DAILY@1430 05/26 1430 DC 05/29 Dextrose/Water 250 ML IV 1406 Benzonatate 100 MG TID 05/27 1124 AC 05/31 PO 0833 Budesonide/ 2 PUF BID 05/25 2200 AC 05/31 Formoterol Fumarate INH 0833 Ceftriaxone Sodium 1,000 MG DAILY@1430 05/26 1430 DC 05/29 IV 1406 Docusate Sodium 100 MG BID 05/25 2200 AC 05/27 PO 2050 Droxidopa 600 MG TID 05/25 1600 AC 05/31 PO 0835 Enoxaparin Sodium 40 MG DAILY 05/25 1431 AC 05/31 SC 0832 Fenofibrate 145 MG DAILY 05/26 1000 AC 05/31 PO 0833 Fluticasone 2 SPRAY DAILY 05/27 1000 AC 05/31 Propionate TRUMAN 0832 Folic Acid 1 MG QAM 05/26 1000 AC 05/31 PO 0834 Guaifenesin 10 ML Q6P PRN 05/27 2045 AC 05/29 PO 0525 Guaifenesin 600 MG Q12 05/27 1124 AC 05/30 PO 2208 Ibuprofen 400 MG Q6P PRN 05/25 1445 AC 05/30 PO 2216 Insulin Aspart 0 TIDAC 05/25 1700 AC 05/30 SC 1707 Ipratropium [place] 2.5 ML EVERY 4 HRS/AWAKE 05/28 1200 AC 05/31 INH 0817 Levothyroxine Sodium 0.05 MG DAILY AC 05/26 0700 AC 05/31 PO 0553 Linaclotide 290 MCG DAILY 05/27 1000 AC 05/31 PO 0833 [place] Carbonate 300 MG 1000 05/26 1000 AC 05/31 PO 0834 [place] Carbonate 600 MG AT BEDTIME 05/25 2200 AC 05/30 PO 2208 Meclizine HCl 12.5 MG TID PRN 05/25 1515 AC PO Methylprednisolone 40 MG Q12 05/30 2200 AC 05/31 IV 0834 Methylprednisolone 40 MG Q8 05/28 1400 DC 05/30 IV 0554 Midodrine 10 MG BID 05/25 2200 AC 05/31 PO 0833 Omeprazole 40 MG DAILY AC 05/28 1054 AC 05/31 PO 0553 Ropinirole HCl 1.5 MG QPM 05/25 2200 AC 05/30 PO 2209 Sertraline HCl 150 MG 0800 / 0800 AC 05/31 PO 0833 Zolpidem Tartrate 5 MG AT BEDTIME 05/25 2200 AC 05/30 PO 2207 Assessment/Plan Assessment: Ms. Virgen, is a 51-year-old female with significant past medical history of COPD [on 2 L of oxygen at night with CPAP], coronary artery disease [40% LAD stenosis, [id number]], orthostatic hypotension, obstructive sleep apnea [ compliant with her CPAP, follows Dr. Wall], diabetes, pericarditis status post pericardial window, bipolar depression, restless leg syndrome, TIA, hypothyroidism, and recurrent supratentorial syncopal episodes who presents to the hospital emergency department with complaints of dyspnea and cough. Vitals on admission temperature 100.2, pulse rate 90, blood pressure 167/72 saturating 77% on room air which went up to the mid 90s on 4 L. Chest x-ray revealed a pattern of pneumonitis versus interstitial edema. Her flu cultures currently pending. Labs were relatively unremarkable. Venous blood gas revealed 7.39/43/47. In the emergency department she received albuterol nebulizer as well as 125 mg of Solu-Medrol. She was started them. On ceftriaxone and azithromycin. Problem list/assessment and plan #Acute COPD exacerbation * Flu negative * Given her last echo, and no hx of CHF, less likely that her BL infiltrates are cardiac in etiology. Lasix 40mg x 1 was given 05/29. Cardio recommend no more lasix 2/2 outflow tract obstruction and hypotension * TRC/Nebs with incentive spirometry * Off ABX. * Continue Solumedrol 40 tapered to q12, with plans to titrate to PO prednisone taper, pending Pulm recommendations. * Tapered down to 2L O2 via nasal canula + Nocturnal CPAP, and titrate down as tolerated with a goal oxygen saturation of greater than 92%. Baseline 2LNC norcturnal at home. - Cardio consult recommended Lasix 40mg x 1 and no more than this as patient had issues with syncope and lightheadedness and continues to be lightheaded. We have made efforts to avoid overdiuresis to minimize this issue. Decompensated CHF was not likely in this patient as low proBNP and normal Echo from 12/2016, and without significant signs of pulmonary edema. - Continued all her home medications except for her metformin and place her on a NovoLog sliding scale with fingerstick measurements TIDAC/HS Full code Consistent carb 2 Lovenox for DVT prophylaxis Pain pathway as ordered Problem List: 1. COPD with acute exacerbation Pain Ratin Pain Location: NA Pain Goal: Remain pain free Pain Plan: see AP Tomorrow's Labs & Rationales: JACK Maria L Mg 05/31/17 1326: Attending MD Review Statement Attending Statement Attending MD Statement: examined this patient, discuss w/resident/PA/DIRECTOR OF DEVELOPMENT AND MARKETING, agreed w/resident/PA/DIRECTOR OF DEVELOPMENT AND MARKETING, discussed with family, reviewed EMR data (avail), discussed with nursing, discussed with case mgmt, reviewed images, amended to note Attending Assessment/Plan: 81-year-old female extensive past medical history including diabetes, hypertension, pericardial effusion with a window in the past, hyperlipidemia, COPD and obstructive sleep apnea uses CPAP at night and follows with Dr. Wall as an outpatient admitted with COPD exacerbation and acute on chronic respiratroy failure. Patient seen/examined bedside. Patient feeling short of breath, minimal use of accessory muscles, down on 2l of oxygen supplementation. B/l wheezing + with much improvemnt. Continue with IV steroids taper, TRC with nebs and abx, likely atypical. Titrate oxygen if possible. RISS and titrate insulin as needed. Pulmonary following. Cardiology f/u, BNP 109, ECHO as per cardiology. POTS cont home meds. gi/dvt prophyalxis full code. anticipated dc in next 24-48 hrs as clinical condition improves. Patient wants to go home. DC planning as per PT.
--- NOTE | 2017-05-31 09:03 | Patient Discharge Instructions ---
Discharge Instructions General Discharge Information You were seen/treated for: #Viral bronchitis #COPD exacerbation Special Instructions: - Please follow up with Dr. Wall for your COPD evaluation within 1 week of discharge. - Please follow up with your primary care physician within 1-2 week of discharge. Inform your primary care physician of this admission to [facility]. - Continue your current medications per discharge instructions. - Please watch for these problems: Fever, Chills, Nausea, Vomiting, Shortness of Breath, Productive Cough, Chest Pain/Discomfort, Abdominal Pain, Active Bleeding or Bloody urine/stool. Diet Continue normal diet: Yes Activity Full Activity/No Limits: Yes Acute Coronary Syndrome Inclusion Criteria At DC or during hospital stay patient has or had the following: ACS DIAGNOSIS No Discharge Core Measures Meds if any: Prescribed or Continued at Discharge Meds if any: NOT Prescribed or Continued at Discharge Congestive Heart Failure Inclusion Criteria At DC or during hospital stay patient has or had the following: CHF DIAGNOSIS No Discharge Core Measures Meds if any: Prescribed or Continued at Discharge Meds if any: NOT Prescribed or Continued at Discharge Cerebrovascular accident Inclusion Criteria At DC or during hospital stay patient has or had the following: CVA/TIA Diagnosis No Discharge Core Measures Meds if any: Prescribed or Continued at Discharge Meds if any: NOT Prescribed or Continued at Discharge Venous thromboembolism Inclusion Criteria VTE Diagnosis No VTE Type NONE VTE Confirmed by (Test) NONE Discharge Core Measures - Per Current guidelines, there needs to be overlap - treatment for the first 5 days of Warfarin therapy. - If discharged on Warfarin prior to 5 days of - overlap therapy, the patient will need to be - assessed for post discharge needs including - *Post discharge parental anticoagulation - *Warfarin and/or parental anticoagulation education - *Follow up date to check INR post discharge At least 5 days overlap therapy as Inpatient No Meds if any: Prescribed or Continued at Discharge Note: Overlap Therapy is Warfarin and Anticoagulant Meds if any: NOT Prescribed or Continued at Discharge
--- NOTE | 2017-05-31 12:32 | PN- Pulmonary ---
Subjective HPI/Critical Care Issues: Patient's hematemesis morning. She appears to be doing much better today. Objective Current Medications: Current Medications Sig/Ralph Start time Last Medication Dose Route Stop Time Status Admin Acetaminophen 650 MG Q6P PRN / 1445 AC PO Albuterol Sulfate 3 ML EVERY 4 HRS/AWAKE / 1200 AC 02 INH 1209 Albuterol Sulfate 2 PUF Q4-6 PRN PRN 05/25 1515 AC 05/28 INH 2101 Artificial Tears 2 GTT 4 TIMES/DAY PRN 05/27 0400 AC 05/27 OPH 0853 Aspirin Buffered 81 MG QAM 05/26 1000 AC 05/31 PO 0834 Atorvastatin Calcium 40 MG QPM 05/25 2200 AC 05/30 PO 2208 Azithromycin 500 MG DAILY@1430 05/26 1430 DC 02/ Dextrose/Water 250 ML IV 1406 Benzonatate 100 MG TID 05/27 1124 AC 05/31 PO 0833 Budesonide/ 2 PUF BID 05/25 2200 AC 05/31 Formoterol Fumarate INH 0833 Ceftriaxone Sodium 1,000 MG DAILY@1430 05/26 1430 DC 02/07 IV 1406 Docusate Sodium 100 MG BID 05/25 2200 AC 05/27 PO 2050 Droxidopa 600 MG TID 05/25 1600 AC 05/31 PO 0835 Enoxaparin Sodium 40 MG DAILY 05/25 1431 AC 05/31 SC 0832 Fenofibrate 145 MG DAILY 05/26 1000 AC 05/31 PO 0833 Fluticasone 2 SPRAY DAILY 05/27 1000 AC 05/31 Propionate TRUMAN 0832 Folic Acid 1 MG QAM 05/26 1000 AC 05/31 PO 0834 Guaifenesin 10 ML Q6P PRN 05/27 2045 AC 05/29 PO 0525 Guaifenesin 600 MG Q12 05/27 1124 AC 05/30 PO 2208 Ibuprofen 400 MG Q6P PRN 05/25 1445 AC 05/30 PO 2216 Insulin Aspart 0 TIDAC / 1700 AC 05/31 SC 1147 Ipratropium [place] 2.5 ML EVERY 4 HRS/AWAKE 05/28 1200 AC 05/31 INH 1210 Levothyroxine Sodium 0.05 MG DAILY AC 05/26 0700 AC 05/31 PO 0553 Linaclotide 290 MCG DAILY 05/27 1000 AC 05/31 PO 0833 [place] Carbonate 300 MG 1000 05/26 1000 AC 05/31 PO 0834 [place] Carbonate 600 MG AT BEDTIME 05/25 220 AC 05/30 PO 2208 Meclizine HCl 12.5 MG TID PRN 05/25 1515 AC PO Methylprednisolone 40 MG Q12 05/30 2200 AC 05/31 IV 0834 Methylprednisolone 40 MG Q8 05/28 1400 DC 05/30 IV 0554 Midodrine 10 MG BID 05/25 2199 AC 05/31 PO 0833 Omeprazole 40 MG DAILY AC 05/28 1054 AC 05/31 PO 0553 Ropinirole HCl 1.5 MG QPM 05/25 220 AC 05/30 PO 2209 Sertraline HCl 150 MG 0800 05/26 0800 AC 05/31 PO 0833 Zolpidem Tartrate 5 MG AT BEDTIME 05/25 220 AC 05/30 PO 2207 Vital Signs & I&O Last 24 Hrs of Vitals and I&O: Vital Signs Date Time Temp Pulse Resp B/P B/P Pulse O2 O2 Flow FiO2 Mean Ox Delivery Rate 05/31 816 93 Nasal 2.0L Cannula 05/31 0652 98.5 58 24 126/88 99 Nasal 4.0L Cannula 05/31 0007 66 96 05/31 0000 96 Nasal 4.0L Cannula 05/30 2256 66 98 05/30 2206 98.5 69 24 140/76 95 Nasal 4.0L Cannula 05/30 1600 96 Nasal 4.0L Cannula 05/30 1557 96 Nasal 4.0L Cannula 05/30 1456 98.0 66 21 130/90 95 Intake & Output 05/31 1600 05/31 0800 05/31 0000 Intake Total 250 1000 Output Total 1000 Balance -8425 564 2741 Intake, IV 10 Intake, Oral 240 1000 Number 1 3 Bowel Movements Output, Urine 1000 Exam Other Physical Findings: gen awake and alert heent ncat cvs s1, s2 lungs bilateral wheezing improved abd obese ext no edema Impression/Plan Impression/Plan Impression/Plan: Impression 51 year old woman * acute exacerbation of COPD - possible viral vs bacterial process such as an atypical infection * SHIRIN/OHS Plan -continue home bipap settings -ceftriaxone/zithromax -sputum cx -check BNP -begin prednisone tomorrow at 60mg and reduce by 10mg every 2 days -cardiology consultation noted -TRC/Nebs DVT prophylaxis at all times
[2017-05-31] MEDS ORDERED: PREDNISONE10 M2 PO (13:46)
[2017-05-31 14:03] VITALS: BP 140/70
[2017-05-31 22:00] VITALS: BP 132/70
[2017-06-01 06:28] VITALS: BP 130/68
--- NOTE | 2017-06-01 09:28 | PN- Housestaff ---
Dulce Maria ZUNIGA,Huber 06/01/1728: Subjective Follow-up For: COPD exacerbation Subjective: back pain non pleuritic, no identifiable aggravating or relieving factors, possible associated with cough afebrile, no chills, nonproductive cough, dyspnea minimally improved, persistent chest tightness able to produce sputum specimen Review of Systems Constitutional: Reports: see HPI. Objective Last 24 Hrs of Vital Signs/I&O Vital Signs Date Time Temp Pulse Resp B/P B/P Pulse O2 O2 Flow FiO2 Mean Ox Delivery Rate 06/01 1439 98.6 65 20 134/58 95 06/01 0830 96 Nasal 4.0L Cannula 06/01 0800 Nasal 4.0L Cannula 06/01 0628 98.1 68 20 130/68 95 Nasal Cannula 06/01 0000 BIPAP 05/31 2200 98.4 70 20 132/70 96 05/31 1922 95 Nasal 4.0L Cannula 05/31 1635 89 Nasal 3.0L Cannula 05/31 1600 95 Nasal 4.0L Cannula Intake & Output 06/01 1600 06/01 0800 06/01 0000 Intake Total 1000 500 151 Output Total 400 1300 Balance 600 -800 151 Intake, IV 11 Intake, Oral 1000 500 140 Output, Urine 400 1300 Physical Exam General Appearance: Alert, Oriented X3, Cooperative, No Acute Distress Cardiovascular: Regular Rate, Normal S1, Normal S2, No Murmurs Lungs: severely diminished air movement, diffuse expiratory wheezing and rhonchi Abdomen: Normal Bowel Sounds, Soft, No Tenderness, No Masses Extremities: No Clubbing, No Cyanosis, No Edema, Normal Pulses Current Medications: Current Medications Sig/Ralph Start time Last Medication Dose Route Stop Time Status Admin Acetaminophen 650 MG Q6P PRN 05/25 1445 AC PO Albuterol Sulfate 3 ML EVERY 4 HRS/AWAKE 05/28 1200 AC 06/01 INH 1159 Albuterol Sulfate 2 PUF Q4-6 PRN PRN 05/25 1515 AC 05/28 INH 2101 Artificial Tears 2 GTT 4 TIMES/DAY PRN 05/27 0400 AC 05/27 OPH 0853 Aspirin Buffered 81 MG QAM 05/26 1000 AC 06/01 PO 1032 Atorvastatin Calcium 40 MG QPM 05/25 2200 AC 05/31 PO 2125 Benzonatate 100 MG TID 05/27 1124 AC 06/01 PO 1030 Budesonide/ 2 PUF BID 05/25 2200 AC 06/01 Formoterol Fumarate INH 1031 Docusate Sodium 100 MG BID 05/25 2200 AC 06/01 PO 1032 Droxidopa 600 MG TID 05/25 1600 AC 06/01 PO 1030 Enoxaparin Sodium 40 MG DAILY 05/25 1431 AC 06/01 SC 1030 Fenofibrate 145 MG DAILY 05/26 1000 AC 06/01 PO 1030 Fluticasone 2 SPRAY DAILY 05/27 1000 AC 06/01 Propionate TRUMAN 1218 Folic Acid 1 MG QAM 05/26 1000 AC 06/01 PO 1032 Guaifenesin 10 ML Q6P PRN 05/27 2045 AC 05/29 PO 0525 Guaifenesin 600 MG Q12 05/27 1124 AC 06/01 PO 1031 Ibuprofen 400 MG Q6P PRN 05/25 1445 AC 06/01 PO 1442 Insulin Aspart 0 TIDAC 05/25 1700 AC 06/01 SC 0822 Ipratropium [place] 2.5 ML EVERY 4 HRS/AWAKE 05/28 1200 AC 06/01 INH 1159 Levothyroxine Sodium 0.05 MG DAILY AC 05/26 0700 AC 06/01 PO 0552 Linaclotide 290 MCG DAILY 05/27 1000 AC 06/01 PO 1030 [place] Carbonate 300 MG 1000 05/26 1000 AC 06/01 PO 1032 [place] Carbonate 600 MG AT BEDTIME 05/25 2200 AC 05/31 PO 2125 Meclizine HCl 12.5 MG TID PRN 05/25 1515 AC PO Methylprednisolone 40 MG ONCE ONE 06/01 1230 DC 06/01 IV 06/01 1231 1347 Methylprednisolone 40 MG Q12 05/30 2200 DC 05/31 IV 05/31 2300 2126 Midodrine 10 MG BID 05/25 2200 AC 06/01 PO 1031 Omeprazole 40 MG DAILY AC 05/28 1054 AC 06/01 PO 0552 Prednisone 60 MG DAILY 06/01 1000 AC 06/01 PO 1031 Ropinirole HCl 1.5 MG QPM 05/25 2200 AC 05/31 PO 2125 Sertraline HCl 150 MG 0800 05/26 0800 AC 06/01 PO 0822 Zolpidem Tartrate 5 MG AT BEDTIME 05/25 2200 AC 05/31 PO 2125 Last 24 Hrs of Lab/Matthieu Results Last 24 Hrs of Labs/Mics: Laboratory Tests 05/31/17 1731: Troponin I < 0.01 Microbiology 06/01 1142 LOWER RESP: Respiratory Culture - CAN Cancelled: Cancelled via OE: Error 06/01 1142 LOWER RESP: Gram Stain - CAN Cancelled: Cancelled via OE: Error Assessment/Plan Assessment: Ms. Viregn, is a 51-year-old female with significant past medical history of COPD [on 2 L of oxygen at night with CPAP], coronary artery disease [40% LAD stenosis, [id number]], orthostatic hypotension, obstructive sleep apnea [ compliant with her CPAP, follows Dr. Wall], diabetes, pericarditis status post pericardial window, bipolar depression, restless leg syndrome, TIA, hypothyroidism, and recurrent supratentorial syncopal episodes who presents to the hospital emergency department with complaints of dyspnea and cough. #Acute COPD exacerbation * Flu negative * TRC/Nebs with incentive spirometry * PO prednisone 60mg * Titrate supplemental oxygen 2L O2 via nasal canula nocturnal oxygen at baseline + Nocturnal CPAP Follow up Pulm recommendations -Decompensated CHF was not likely in this patient as low proBNP and normal Echo from 12/2016, and without significant signs of pulmonary edema. no additional lasix DM: NovoLog sliding scale Accuchecks TIDAC/HS Diabetic diet DVT ppx-Lovenox 40mg subcutaneous daily Full code Problem List: 1. COPD exacerbation 2. Diabetes 3. SHIRIN (obstructive sleep apnea) Pain Ratin Pain Location: back Pain Goal: Pain 4 or less Pain Plan: prn Tomorrow's Labs & Rationales: liat Ames MD,[facility] 06/01/17 1414: Attending MD Review Statement Attending Statement Attending MD Statement: examined this patient, discuss w/resident/PA/DANCE PROFESSOR, agreed w/resident/PA/DANCE PROFESSOR, reviewed EMR data (avail), discussed with nursing, discussed with case mgmt, reviewed images, amended to note Attending Assessment/Plan: Patient seen and examined, not feeling well. She still very wheezy. Vital Signs Date Time Temp Pulse Resp B/P B/P Pulse O2 O2 Flow FiO2 Mean Ox Delivery Rate 06/01 0830 96 Nasal 4.0L Cannula 06/01 0800 Nasal 4.0L Cannula 06/01 0628 98.1 68 20 130/68 95 Nasal Cannula 06/01 0000 BIPAP 05/31 2200 98.4 70 20 132/70 96 05/31 1922 95 Nasal 4.0L Cannula 05/31 1635 89 Nasal 3.0L Cannula 05/31 1600 95 Nasal 4.0L Cannula on exam; aox3, nad. cv; s1, s2, rrr resp; + exp wheeze b/l abd; soft, nt, bs+ ext; no edema Laboratory Tests 05/31 1731 Chemistry Troponin I (< 0.11 ng/ml) < 0.01 A/P; 81-year-old female extensive past medical history including diabetes, hypertension, pericardial effusion with a window in the past, hyperlipidemia, COPD and obstructive sleep apnea uses CPAP at night admitted with acute CBD exacerbation and acute on chronic respiratory failure. Patient currently wheezing quite a bit therefore will give an extra dose of IV steroids today. Continue TRC nebs. Patient with history off POTS and she is on Droxidopa as well as Midodrin. Patient on Lovenox for DVT prophylaxis. Medically not stable for discharge. Continue TRC nebs. Patient with history off POTS and she is on Droxidopa as well as Midodrin. Patient on Lovenox for DVT prophylaxis. Medically not stable for discharge.
--- NOTE | 2017-06-01 10:49 | PN- Pulmonary ---
Subjective HPI/Critical Care Issues: Patient continues to have some shortness of breath and cough Objective Current Medications: Current Medications Sig/Ralph Start time Last Medication Dose Route Stop Time Status Admin Acetaminophen 650 MG Q6P PRN 05/25 1445 AC PO Albuterol Sulfate 3 ML EVERY 4 HRS/AWAKE 05/28 1200 AC 06/01 INH 0829 Albuterol Sulfate 2 PUF Q4-6 PRN PRN 05/25 1515 AC 05/28 INH 2101 Artificial Tears 2 GTT 4 TIMES/DAY PRN 05/27 0400 AC 05/27 OPH 0853 Aspirin Buffered 81 MG QAM 05/26 1000 AC 06/01 PO 1032 Atorvastatin Calcium 40 MG QPM 05/25 2200 AC 05/31 PO 2125 Benzonatate 100 MG TID 05/27 1124 AC 06/01 PO 1030 Budesonide/ 2 PUF BID 05/25 2200 AC 06/01 Formoterol Fumarate INH 1031 Docusate Sodium 100 MG BID 05/25 2200 AC 06/01 PO 1032 Droxidopa 600 MG TID 05/25 1600 AC 06/01 PO 1030 Enoxaparin Sodium 40 MG DAILY 05/25 1431 AC 06/01 SC 1030 Fenofibrate 145 MG DAILY 05/26 1000 AC 06/01 PO 1030 Fluticasone 2 SPRAY DAILY 05/27 1000 AC 05/31 Propionate TRUMAN 0832 Folic Acid 1 MG QAM 05/26 1000 AC 06/01 PO 1032 Guaifenesin 10 ML Q6P PRN / 2045 AC 05/29 PO 0525 Guaifenesin 600 MG Q12 05/27 1124 AC 06/01 PO 1031 Ibuprofen 400 MG Q6P PRN / 1445 AC 05/30 PO 2216 Insulin Aspart 0 TIDAC / 1700 AC 06/01 SC 0822 Ipratropium [place] 2.5 ML EVERY 4 HRS/AWAKE 05/28 1200 AC 06/01 INH 0830 Levothyroxine Sodium 0.05 MG DAILY AC 05/26 0700 AC 06/01 PO 0552 Linaclotide 290 MCG DAILY 05/27 1000 AC 06/01 PO 1030 [place] Carbonate 300 MG 1000 05/26 1000 AC 06/01 PO 1032 [place] Carbonate 600 MG AT BEDTIME 05/25 2200 AC 05/31 PO 2125 Meclizine HCl 12.5 MG TID PRN 05/25 1515 AC PO Methylprednisolone 40 MG Q12 05/30 2200 DC 05/31 IV 05/31 2300 2126 Midodrine 10 MG BID 05/25 2200 AC 06/01 PO 1031 Omeprazole 40 MG DAILY AC 05/28 1054 AC 06/01 PO 0552 Prednisone 60 MG DAILY 06/01 1000 AC 06/01 PO 1031 Ropinirole HCl 1.5 MG QPM 05/25 2200 AC 05/31 PO 2125 Sertraline HCl 150 MG 0800 05/26 0800 AC 06/01 PO 0822 Zolpidem Tartrate 5 MG AT BEDTIME 05/25 220 AC 05/31 PO 2125 Vital Signs & I&O Last 24 Hrs of Vitals and I&O: Vital Signs Date Time Temp Pulse Resp B/P B/P Pulse O2 O2 Flow FiO2 Mean Ox Delivery Rate 06/01 799 Nasal 4.0L Cannula 06/01 0628 98.1 68 20 130/68 95 Nasal Cannula 06/01 0000 BIPAP 05/31 2199 98.4 70 20 132/70 96 05/31 1922 95 Nasal 4.0L Cannula 05/31 1635 89 Nasal 3.0L Cannula 05/31 1600 95 Nasal 4.0L Cannula 05/31 1403 98.6 69 21 140/70 92 Intake & Output 06/01 1600 06/01 0800 06/01 0000 Intake Total 500 151 Output Total 1300 Balance -800 151 Intake, IV 11 Intake, Oral 500 140 Output, Urine 1300 Oxygen saturation 4 L 95% exam for chest shows scattered expiratory wheezes cardiac exam shows regular S1 and S2 without murmurs Impression/Plan Impression/Plan Impression/Plan: 51-year-old woman admitted with exacerbation of COPD he still has low level bronchospasm Recommendations: Continue slow prednisone taper aggressive pulmonary toilet Taper FiO2 his saturations allow
[2017-06-01 14:39] VITALS: BP 134/58
[2017-06-01 22:40] VITALS: BP 160/62
[2017-06-02 06:40] VITALS: BP 158/84
--- NOTE | 2017-06-02 08:47 | PN- Housestaff ---
Deacon ZUNIGA,Deborah 06/02/17 0847: Subjective Follow-up For: COPD excessive Complaints: no complaints Subjective: Patient was seen and examined at bedside. Complains of cough. Denies chest pain, chest pressure, nausea, vomiting, shortness of breath, palpitation. Review of Systems Constitutional: Reports: no symptoms. Cardiovascular: Reports: no symptoms. Respiratory: Reports: no symptoms. Gastrointestinal: Reports: no symptoms. Genitourinary: Reports: no symptoms. Musculoskeletal: Reports: no symptoms. Objective Last 24 Hrs of Vital Signs/I&O Vital Signs Date Time Temp Pulse Resp B/P B/P Pulse O2 O2 Flow FiO2 Mean Ox Delivery Rate 06/02 1032 99 Nasal 3.0L Cannula 06/02 0800 Nasal 3.0L Cannula 06/02 0640 97.8 64 22 158/84 97 Nasal 3.0L Cannula 06/02 0000 Nasal 3.0L Cannula 06/01 2240 98.0 70 24 160/62 93 Nasal 3.0L Cannula 06/01 2208 66 98 06/01 1750 92 Nasal 4.0L Cannula 06/01 1600 Nasal 3.0L Cannula 06/01 1439 98.6 65 20 134/58 95 Intake & Output 06/02 1600 06/02 0800 06/02 0000 Intake Total 300 500 Output Total Balance 300 500 Intake, Oral 300 500 Physical Exam General Appearance: Alert, Oriented X3, Cooperative, No Acute Distress HEENT: Atraumatic, PERRLA Neck: Supple, No JVD, No thryomegaly Cardiovascular: Normal S1, Normal S2, No Murmurs Lungs: bbilateral rhonchi Abdomen: Soft, No Tenderness, No Hepatospenomegaly Neurological: Strength at 5/5 X4 Ext, Normal Tone Extremities: No Edema Current Medications: Current Medications Sig/Ralph Start time Last Medication Dose Route Stop Time Status Admin Acetaminophen 650 MG Q6P PRN 05/25 1445 AC PO Albuterol Sulfate 3 ML EVERY 4 HRS/AWAKE 05/28 1200 AC 06/02 INH 1319 Albuterol Sulfate 2 PUF Q4-6 PRN PRN 05/25 1515 AC 05/28 INH 2101 Artificial Tears 2 GTT 4 TIMES/DAY PRN 05/27 0400 AC 05/27 OPH 0853 Aspirin Buffered 81 MG QAM 05/26 1000 AC 06/02 PO 0937 Atorvastatin Calcium 40 MG QPM 05/25 2200 AC 06/01 PO 2104 Benzonatate 100 MG TID 05/27 1124 AC 06/02 PO 0937 Budesonide/ 2 PUF BID 05/25 2200 AC 06/02 Formoterol Fumarate INH 0934 Diphenhydramine HCl 50 MG ONCE ONE 06/02 0900 DC IV 06/02 0901 Docusate Sodium 100 MG BID 05/25 2200 AC 05/27 PO 2050 Droxidopa 600 MG TID 05/25 1600 AC 06/02 PO 0936 Enoxaparin Sodium 40 MG DAILY 05/25 1431 AC 06/02 SC 0935 Fenofibrate 145 MG DAILY 05/26 1000 AC 06/02 PO 0937 Fluticasone 2 SPRAY DAILY 05/27 1000 AC 06/02 Propionate TRUMAN 0953 Folic Acid 1 MG QAM 05/26 1000 AC 06/02 PO 0937 Guaifenesin 10 ML Q6P PRN 05/27 2045 AC 05/29 PO 0525 Guaifenesin 600 MG Q12 05/27 1124 AC 06/02 PO 0937 Ibuprofen 400 MG Q6P PRN 05/25 1445 AC 06/02 PO 0734 Insulin Aspart 0 TIDAC 05/25 1700 AC 06/02 SC 1200 Ipratropium [place] 2.5 ML EVERY 4 HRS/AWAKE 05/28 1200 AC 06/02 INH 1319 Levothyroxine Sodium 0.05 MG DAILY AC 05/26 0700 AC 06/02 PO 0551 Linaclotide 290 MCG DAILY 05/27 1000 AC 06/02 PO 0936 [place] Carbonate 300 MG 1000 05/26 1000 AC 06/02 PO 0937 [place] Carbonate 600 MG AT BEDTIME 05/25 2200 AC 06/01 PO 2105 Lorazepam 0.5 MG ONE ONE 06/01 1745 DC 06/01 PO 06/01 1746 1834 Meclizine HCl 12.5 MG TID PRN 05/25 1515 AC PO Methylprednisolone 40 MG ONCE ONE 06/03 1000 AC IV 06/03 1001 Methylprednisolone 40 MG ONCE ONE 06/02 2000 AC IV 06/02 2000 Methylprednisolone 40 MG Q8 06/02 1400 UNVr IV Midodrine 10 MG BID 05/25 2200 AC 06/02 PO 0937 Omeprazole 40 MG DAILY AC 05/28 1054 AC 06/02 PO 0550 Oxycodone/ 1 TAB Q6P PRN 06/02 0900 AC 06/02 Acetaminophen PO 0932 Prednisone 60 MG DAILY 06/01 1000 DC 06/02 PO 0937 Ropinirole HCl 1.5 MG QPM 05/25 2200 AC 06/01 PO 2103 Sertraline HCl 150 MG 0800 05/26 0800 AC 06/02 PO 0734 Zolpidem Tartrate 5 MG AT BEDTIME 05/25 2200 AC 06/01 PO 2106 Last 24 Hrs of Lab/Matthieu Results Last 24 Hrs of Labs/Mics: Laboratory Tests 06/02/17 0725: Anion Gap 12, Estimated GFR > 60, BUN/Creatinine Ratio 40.0 H Microbiology 06/02 1308 LOWER RESP: Respiratory Culture - COLB 06/02 130 LOWER RESP: Gram Stain - COLB Assessment/Plan Assessment: Ms. Virgen, is a 51-year-old female with significant past medical history of COPD [on 2 L of oxygen at night with CPAP], coronary artery disease [40% LAD stenosis, [id number]], orthostatic hypotension, obstructive sleep apnea [ compliant with her CPAP, follows Dr. Wall], diabetes, pericarditis status post pericardial window, bipolar depression, restless leg syndrome, TIA, hypothyroidism, and recurrent supratentorial syncopal episodes who presents to the hospital emergency department with complaints of dyspnea and cough. #Acute COPD exacerbation * Flu negative * TRC/Nebs with incentive spirometry * PO prednisone 60mg can be stopped and IV steroids can be started back. Chest x-ray today. * Titrate supplemental oxygen 2L O2 via nasal canula nocturnal oxygen at baseline + Nocturnal CPAP Follow up Pulm recommendations DM: NovoLog sliding scale Accuchecks TIDAC/HS Diabetic diet DVT ppx-Lovenox 40mg subcutaneous daily Full code Problem List: 1. COPD exacerbation Pain Ratin Pain Location: none Pain Goal: Remain pain free Pain Plan: tylenol Tomorrow's Labs & Rationales: cbc,bep Kwaku ZUNIGA,Nadia 06/02/17 1305: Attending MD Review Statement Attending Statement Attending MD Statement: examined this patient, discuss w/resident/PA/GUIDANCE AND CONTROL SYSTEM ENGINEER, agreed w/resident/PA/GUIDANCE AND CONTROL SYSTEM ENGINEER, reviewed EMR data (avail), discussed with nursing, discussed with case mgmt, amended to note Attending Assessment/Plan: Patient seen and examined, not feeling well. She still very wheezy. Vital Signs Date Time Temp Pulse Resp B/P B/P Pulse O2 O2 Flow FiO2 Mean Ox Delivery Rate 06/02 1032 99 Nasal 3.0L Cannula 06/02 0800 Nasal 3.0L Cannula 06/02 0640 97.8 64 22 158/84 97 Nasal 3.0L Cannula 06/02 0000 Nasal 3.0L Cannula 06/01 2240 98.0 70 24 160/62 93 Nasal 3.0L Cannula 06/01 2208 66 98 06/01 1750 92 Nasal 4.0L Cannula 06/01 1600 Nasal 3.0L Cannula 06/01 1439 98.6 65 20 134/58 95 on exam; aox3, nad. cv; s1, s2, rrr resp; + exp wheeze b/l abd; soft, nt, bs+ ext; no edema Laboratory Tests 06/02 0725 Chemistry Sodium (137 - 145 mmol/L) 142 Potassium (3.5 - 5.1 mmol/L) 4.9 Chloride (98 - 107 mmol/L) 100 Carbon Dioxide (22 - 30 mmol/L) 29 Anion Gap (5 - 16) 12 BUN (7 - 17 mg/dL) 24 H Creatinine (0.5 - 1.0 mg/dL) 0.6 Estimated GFR (>60 ml/min) > 60 BUN/Creatinine Ratio (7 - 25 %) 40.0 H A/P; 51-year-old female extensive past medical history including diabetes, hypertension, pericardial effusion with a window in the past, hyperlipidemia, COPD and obstructive sleep apnea uses CPAP at night admitted with acute COPD exacerbation and acute on chronic respiratory failure. Patient currently wheezing quite a bit therefore we will switch her back to IV steroids. Seen by pulmonology who recommends the same. Would repeat chest x- ray. Continue TRC nebs in the rest of the medications. DVT prophylaxis: Lovenox
--- NOTE | 2017-06-02 10:44 | PN- Pulmonary ---
Subjective HPI/Critical Care Issues: Patient continues to have shortness of breath and persistent bronchospasm Objective Current Medications: Current Medications Sig/Ralph Start time Last Medication Dose Route Stop Time Status Admin Acetaminophen 650 MG Q6P PRN / 1445 AC PO Albuterol Sulfate 3 ML EVERY 4 HRS/AWAKE 05/28 1200 AC 06/02 INH 1030 Albuterol Sulfate 2 PUF Q4-6 PRN PRN 05/25 1515 AC 05/28 INH 2101 Artificial Tears 2 GTT 4 TIMES/DAY PRN 05/27 0400 AC 05/27 OPH 0853 Aspirin Buffered 81 MG QAM 05/26 1000 AC 06/02 PO 0937 Atorvastatin Calcium 40 MG QPM 05/25 2200 AC 06/01 PO 2104 Benzonatate 100 MG TID 05/27 1124 AC 06/02 PO 0937 Budesonide/ 2 PUF BID 05/25 2200 AC 06/02 Formoterol Fumarate INH 0934 Diphenhydramine HCl 50 MG ONCE ONE 06/02 0900 DC IV 06/02 0901 Docusate Sodium 100 MG BID 05/25 2200 AC 05/27 PO 2050 Droxidopa 600 MG TID 05/25 1600 AC 06/02 PO 0936 Enoxaparin Sodium 40 MG DAILY 05/25 1431 AC 06/02 SC 0935 Fenofibrate 145 MG DAILY 05/26 1000 AC 06/02 PO 0937 Fluticasone 2 SPRAY DAILY 05/27 1000 AC 06/02 Propionate TRUMAN 0953 Folic Acid 1 MG QAM 05/26 1000 AC 06/02 PO 0937 Guaifenesin 10 ML Q6P PRN 05/27 2045 AC 05/29 PO 0525 Guaifenesin 600 MG Q12 05/27 1124 AC 06/02 PO 0937 Ibuprofen 400 MG Q6P PRN / 1445 AC 06/02 PO 0734 Insulin Aspart 0 TIDAC 05/25 1700 AC 06/01 SC 1644 Ipratropium [place] 2.5 ML EVERY 4 HRS/AWAKE 05/28 1200 AC 06/02 INH 1030 Levothyroxine Sodium 0.05 MG DAILY AC 05/26 0700 AC 06/02 PO 0551 Linaclotide 290 MCG DAILY 05/27 1000 AC 06/02 PO 0936 [place] Carbonate 300 MG 1000 05/26 1000 AC 06/02 PO 0937 [place] Carbonate 600 MG AT BEDTIME 05/25 2200 AC 06/01 PO 2105 Lorazepam 0.5 MG ONE ONE 06/01 1745 DC 06/01 PO 06/01 1746 1834 Meclizine HCl 12.5 MG TID PRN 05/25 1515 AC PO Methylprednisolone 40 MG ONCE ONE 06/01 1230 DC 06/01 IV 06/01 1231 1347 Midodrine 10 MG BID 05/25 2200 AC 06/02 PO 0937 Omeprazole 40 MG DAILY AC 05/28 1054 AC 06/02 PO 0550 Oxycodone/ 1 TAB Q6P PRN 06/02 0900 AC 06/02 Acetaminophen PO 0932 Prednisone 60 MG DAILY 06/01 1000 AC 06/02 PO 0937 Ropinirole HCl 1.5 MG QPM 05/25 2200 AC 06/01 PO 2103 Sertraline HCl 150 MG 0800 05/26 0800 AC 06/02 PO 0734 Zolpidem Tartrate 5 MG AT BEDTIME 05/25 2200 AC 06/01 PO 2106 Vital Signs & I&O Last 24 Hrs of Vitals and I&O: Vital Signs Date Time Temp Pulse Resp B/P B/P Pulse O2 O2 Flow FiO2 Mean Ox Delivery Rate 06/02 1032 99 Nasal 3.0L Cannula 06/02 0640 97.8 64 22 158/84 97 Nasal 3.0L Cannula 06/02 0000 Nasal 3.0L Cannula 06/01 2240 98.0 70 24 160/62 93 Nasal 3.0L Cannula 06/01 2208 66 98 06/01 1750 92 Nasal 4.0L Cannula 06/01 1600 Nasal 3.0L Cannula 06/01 1439 98.6 65 20 134/58 95 Intake & Output 06/02 1600 06/02 0800 06/02 0000 Intake Total 300 500 Output Total Balance 300 500 Intake, Oral 300 500 Since saturation 3 L 99% exam for chest shows diffuse wheezing cardiac exam shows regular S1 and S2 without murmurs Impression/Plan Impression/Plan Impression/Plan: 51-year-old woman admitted with exacerbation of COPD he still has persistent bronchospasm Recommendations: Would resume IV steroids every 8 hours. Attempt to obtain sputum C&S. Taper FiO2 with improved saturations
[2017-06-02 15:27] VITALS: BP 158/70
--- NOTE | 2017-06-02 21:11 | RADIOLOGY REPORT ---
EXAMINATION: XR PORTABLE CHEST CLINICAL INFORMATION: Cough. Concern for COPD. COMPARISON: Chest radiograph 05/28/2017. TECHNIQUE: Portable frontal view of the chest was obtained. FINDINGS: No focal consolidation. No pleural effusion. Cardiomediastinal silhouette is within normal limits. The pulmonary vasculature appears within normal limits for AP technique. No acute osseous findings. IMPRESSION: No evidence of acute cardiopulmonary disease.
[2017-06-02 22:47] VITALS: BP 160/74
[2017-06-03 07:24] VITALS: BP 100/70
[2017-06-03 07:31] VITALS: BP 132/80
--- NOTE | 2017-06-03 08:14 | PN- Pulmonary ---
Subjective HPI/Critical Care Issues: Patient continues to be bronchospastic and short of breath. He is encouraged to be more adherent with nocturnal CPAP Objective Current Medications: Current Medications Sig/Ralph Start time Last Medication Dose Route Stop Time Status Admin Acetaminophen 650 MG Q6P PRN / 1445 AC PO Albuterol Sulfate 3 ML EVERY 4 HRS/AWAKE / 1200 AC 06/03 INH 0759 Albuterol Sulfate 2 PUF Q4-6 PRN PRN 05/25 1515 AC 05/28 INH 2101 Artificial Tears 2 GTT 4 TIMES/DAY PRN 05/27 0400 AC 05/27 OPH 0853 Aspirin Buffered 81 MG QAM 05/26 1000 AC 06/02 PO 0937 Atorvastatin Calcium 40 MG QPM 05/25 2200 AC 06/02 PO 2129 Benzonatate 100 MG TID 05/27 1124 AC 06/02 PO 2135 Budesonide/ 2 PUF BID 05/25 2200 AC 06/02 Formoterol Fumarate INH 2134 Diphenhydramine HCl 50 MG ONCE ONE 06/02 0900 DC IV 06/02 0901 Docusate Sodium 100 MG BID 05/25 2200 AC 05/27 PO 2050 Droxidopa 600 MG TID 05/25 1600 AC 06/02 PO 2130 Enoxaparin Sodium 40 MG DAILY 05/25 1431 AC 06/02 SC 0935 Fenofibrate 145 MG DAILY 05/26 1000 AC 06/02 PO 0937 Fluticasone 2 SPRAY DAILY 05/27 1000 AC 06/02 Propionate TRUMAN 0953 Folic Acid 1 MG QAM 05/26 1000 AC 06/02 PO 0937 Guaifenesin 10 ML Q6P PRN 05/27 2045 AC 05/29 PO 0525 Guaifenesin 600 MG Q12 05/27 1124 AC 06/02 PO 2130 Ibuprofen 400 MG Q6P PRN / 1445 AC 06/02 PO 0734 Insulin Aspart 0 TIDAC 05/25 1700 AC 06/02 SC 1651 Ipratropium [place] 2.5 ML EVERY 4 HRS/AWAKE / 1200 AC 06/03 INH 0759 Levothyroxine Sodium 0.05 MG DAILY AC 05/26 0700 AC 06/03 PO 0543 Linaclotide 290 MCG DAILY 05/27 1000 AC 06/02 PO 0936 [place] Carbonate 300 MG 1000 05/26 1000 AC 06/02 PO 0937 [place] Carbonate 600 MG AT BEDTIME 05/25 220 AC 06/02 PO 2130 Meclizine HCl 12.5 MG TID PRN 05/25 1515 AC PO Methylprednisolone 40 MG ONCE ONE 06/03 1000 CAN IV 06/03 1001 Methylprednisolone 40 MG Q12 06/03 1000 CAN IV Methylprednisolone 40 MG Q8 06/03 0600 AC IV Methylprednisolone 40 MG ONCE ONE 06/02 2000 DC 06/02 IV 06/02 Methylprednisolone 40 MG Q8 06/02 1400 DC IV Midodrine 10 MG BID 05/25 220 AC 06/02 PO 2132 Omeprazole 40 MG DAILY AC 05/28 1054 AC 06/03 PO 0544 Oxycodone/ 1 TAB Q6P PRN 06/02 09 AC 06/03 Acetaminophen PO 06 Prednisone 60 MG DAILY 06/01 1000 DC 06/02 PO 0937 Ropinirole HCl 1.5 MG QPM 05/25 2199 AC 06/02 PO 2134 Sertraline HCl 150 MG 0800 05/26 08 AC 06/02 PO 0734 Zolpidem Tartrate 5 MG AT BEDTIME 05/25 2199 AC 06/02 PO 2128 Vital Signs & I&O Last 24 Hrs of Vitals and I&O: Vital Signs Date Time Temp Pulse Resp B/P B/P Pulse O2 O2 Flow FiO2 Mean Ox Delivery Rate 06/03 0803 98 Nasal 3.0L Cannula 06/03 0731 98.0 61 24 132/80 98 Nasal 3.0L Cannula 06/03 0724 98.4 93 20 100/70 92 Room Air 06/03 0000 Nasal 3.0L Cannula 06/02 224 98.6 64 24 160/74 95 Nasal 3.0L Cannula 06/02 2246 74 98 06/02 1700 96 Nasal 3.0L Cannula 06/02 1600 99 Nasal 3.0L Cannula 06/02 1527 98.6 82 22 158/70 96 06/02 1032 99 Nasal 3.0L Cannula Intake & Output 06/03 1600 06/03 0800 06/03 0000 Intake Total 120 1021 Output Total 1375 900 Balance -1255 121 Intake, IV 21 Intake, Oral 120 1000 Number 0 Bowel Movements Output, Urine 1375 900 And saturation 3 L 98% exam for chest continues to show diffuse expiratory wheezing cardiac exam shows a regular S1 and S2 without murmurs Impression/Plan Impression/Plan Impression/Plan: 51-year-old woman admitted with exacerbation of COPD he still has persistent bronchospasm and is again on IV steroids Recommendations: Would resume IV steroids every 8 hours. Attempt to obtain sputum C&S. Taper FiO2 with improved saturations patient fails to improve may need consideration of more prolonged therapy in alternative setting
--- NOTE | 2017-06-03 08:29 | PN- Housestaff ---
Clementine Strickland 06/03/17 0829: Subjective Follow-up For: COPD Exacerbation Viral Bronchitis? Subjective: No overnight event. Patient is eating breakfast when I entered. [place] about the same on respiration under 2LNC. Offered no other complaint. Review of Systems Constitutional: Reports: see HPI. Objective Last 24 Hrs of Vital Signs/I&O Vital Signs Date Time Temp Pulse Resp B/P B/P Pulse O2 O2 Flow FiO2 Mean Ox Delivery Rate 06/03 0803 98 Nasal 3.0L Cannula 06/03 0800 96 Nasal 2.0L Cannula 06/03 0731 98.0 61 24 132/80 98 Nasal 3.0L Cannula 06/03 0724 98.4 93 20 100/70 92 Room Air 06/03 0000 Nasal 3.0L Cannula 06/02 2247 98.6 64 24 160/74 95 Nasal 3.0L Cannula 06/02 2246 74 98 06/02 1700 96 Nasal 3.0L Cannula 06/02 1600 99 Nasal 3.0L Cannula 06/02 1527 98.6 82 22 158/70 96 Intake & Output 06/03 1600 06/03 0800 06/03 0000 Intake Total 120 1021 Output Total 500 1375 900 Balance -500 -1255 121 Intake, IV 21 Intake, Oral 120 1000 Number 0 Bowel Movements Output, Urine 500 1375 900 Physical Exam General Appearance: Alert, Oriented X3, Cooperative, No Acute Distress Cardiovascular: Regular Rate Lungs: Normal Air Movement, bilateral wheeze mildly Abdomen: Soft, No Tenderness Neurological: Normal Speech Extremities: No Edema, Normal Pulses Current Medications: Current Medications Sig/Ralph Start time Last Medication Dose Route Stop Time Status Admin Acetaminophen 650 MG Q6P PRN 05/25 1445 AC PO Albuterol Sulfate 3 ML EVERY 4 HRS/AWAKE / 1200 AC 06/03 INH 1153 Albuterol Sulfate 2 PUF Q4-6 PRN PRN 05/25 1515 AC 05/28 INH 2101 Artificial Tears 2 GTT 4 TIMES/DAY PRN 05/27 0400 AC 05/27 OPH 0853 Aspirin Buffered 81 MG QAM /04 1000 AC 06/03 PO 1031 Atorvastatin Calcium 40 MG QPM 05/25 2200 AC 06/02 PO 2129 Benzonatate 100 MG TID 05/27 1124 AC 06/03 PO 1032 Budesonide/ 2 PUF BID 05/25 2200 AC 06/03 Formoterol Fumarate INH 1210 Docusate Sodium 100 MG BID 05/25 2200 AC 05/27 PO 2050 Droxidopa 600 MG TID 05/25 1600 AC 06/03 PO 1031 Enoxaparin Sodium 40 MG DAILY 05/25 1431 AC 06/03 SC 1029 Fenofibrate 145 MG DAILY 05/26 1000 AC 06/03 PO 1031 Fluticasone 2 SPRAY DAILY 05/27 1000 AC 06/03 Propionate TRUMAN 1029 Folic Acid 1 MG QAM 05/26 1000 AC 06/03 PO 1031 Guaifenesin 10 ML Q6P PRN 05/27 2045 AC 05/29 PO 0525 Guaifenesin 600 MG Q12 05/27 1124 AC 06/03 PO 1031 Ibuprofen 400 MG Q6P PRN 05/25 1445 AC 06/02 PO 0734 Insulin Aspart 0 TIDAC 05/25 1700 AC 06/02 SC 1651 Ipratropium [place] 2.5 ML EVERY 4 HRS/AWAKE 05/28 1200 AC 06/03 INH 1153 Levothyroxine Sodium 0.05 MG DAILY AC 05/26 0700 AC 06/03 PO 0543 Linaclotide 290 MCG DAILY 05/27 1000 AC 06/03 PO 1032 [place] Carbonate 300 MG 1000 05/26 1000 AC 06/03 PO 1031 [place] Carbonate 600 MG AT BEDTIME 05/25 2200 AC 06/02 PO 2130 Meclizine HCl 12.5 MG TID PRN 05/25 1515 AC PO Methylprednisolone 40 MG ONCE ONE 06/03 1000 CAN IV 06/03 1001 Methylprednisolone 40 MG Q8 06/03 0600 AC 06/03 IV 1213 Methylprednisolone 40 MG ONCE ONE 06/02 1999 DC 06/02 IV 06/02 Midodrine 10 MG BID 05/25 2200 AC 06/03 PO 1031 Omeprazole 40 MG DAILY AC 05/28 1054 AC 06/03 PO 0544 Oxycodone/ 1 TAB Q6P PRN 06/02 0900 AC 06/03 Acetaminophen PO 1328 Ropinirole HCl 1.5 MG QPM 05/25 2200 AC 06/02 PO 2134 Sertraline HCl 150 MG 0800 / 0800 AC 06/03 PO 1030 Zolpidem Tartrate 5 MG AT BEDTIME 05/25 2200 AC 06/02 PO 2128 Last 24 Hrs of Lab/Matthieu Results Last 24 Hrs of Labs/Mics: Laboratory Tests 06/03/17 0820: Anion Gap 11, Estimated GFR > 60, BUN/Creatinine Ratio 27.1 H, CBC w Diff NO MAN DIFF REQ, RBC 4.77, MCV 85.5, MCH 27.9, MCHC 32.7 L, RDW 13.6, MPV 8.9, Gran % 80.6 H, Lymphocytes % 13.6 L, Monocytes % 3.9, Eosinophils % 1.6, Basophils % 0.3, Absolute Granulocytes 11.3 H, Absolute Lymphocytes 1.9, Absolute Monocytes 0.5, Absolute Eosinophils 0.2, Absolute Basophils 0 Assessment/Plan Assessment: Ms. Virgen, is a 51-year-old female with significant past medical history of COPD [on 2 L of oxygen at night with CPAP], coronary artery disease [40% LAD stenosis, [id number]], orthostatic hypotension, obstructive sleep apnea [ compliant with her CPAP, follows Dr. Wall], diabetes, pericarditis status post pericardial window, bipolar depression, restless leg syndrome, TIA, hypothyroidism, and recurrent supratentorial syncopal episodes who presents to the hospital emergency department with complaints of dyspnea and cough. #Acute COPD exacerbation * Flu negative * TRC/Nebs with incentive spirometry * Continued resumed IV steroid 40mg q8. May taper tmr per clinical improvement. * Titrate supplemental oxygen 2L O2 via nasal canula nocturnal oxygen at baseline + Nocturnal CPAP Follow up Pulm recommendations #DM: - NovoLog sliding scale - Accuchecks TIDAC/HS Diabetic diet DVT ppx-Lovenox 40mg subcutaneous daily Full code Problem List: 1. COPD with acute exacerbation Pain Ratin Pain Location: NA Pain Goal: Remain pain free Pain Plan: see AP Tomorrow's Labs & Rationales: Maria L Oconnor 06/03/17 1245: Attending MD Review Statement Attending Statement Attending MD Statement: examined this patient, discuss w/resident/PA/[employer], agreed w/resident/PA/[employer]ER, discussed with family, reviewed EMR data (avail), discussed with nursing, discussed with case mgmt, reviewed images, amended to note Attending Assessment/Plan: 51-year-old female extensive past medical history including diabetes, hypertension, pericardial effusion with a window in the past, hyperlipidemia, COPD and obstructive sleep apnea uses CPAP at night admitted with acute COPD exacerbation and acute on chronic respiratory failure. Weeknd events noted with wheezing b/l with not much improvement so added iv steroids. Continue with IV steroids taper, TRC with nebs and abx, Titrate oxygen if possible. RISS and titrate insulin as needed. Pulmonary following. POTS cont home meds. gi/dvt prophyalxis full code. anticipated dc as clinical condition improves. Patient wants to go home. DC planning as per PT.
[2017-06-03 08:53] LABS: ABSOLUTE BASOPHIL COUNT 0 /CUMM (0.0-0.2); ABSOLUTE EOSINOPHIL COUNT 0.2 /CUMM (0.0-0.7); ABSOLUTE GRANULOCYTE CT 11.3 /CUMM (1.4-6.5); ABSOLUTE LYMPH COUNT 1.9 /CUMM (1.2-3.4); ABSOLUTE MONOCYTE COUNT 0.5 /CUMM (0.10-0.60); BASOPHIL % 0.3 % (0.0-2.0); EOSINOPHIL % 1.6 % (0-5); GRANULOCYTE % 80.6 % (42.2-75.2); HEMATOCRIT 40.8 % (37-47); MEAN CORPUSCULAR HGB 27.9 PG (27.0-31.0); MEAN CORPUSCULAR HGB CONC 32.7 G/DL (33.0-37.0); MEAN CORPUSCULAR VOLUME 85.5 FL (81.0-99.0); MEAN PLATELET VOLUME 8.9 FL (7.4-10.4); PLATELET COUNT 512 /CUMM (130-400); RBC DISTRIBUTION WIDTH 13.6 % (11.5-14.5); RED BLOOD CELL CT 4.77 /CUMM (4.20-5.40)
[2017-06-03 14:20] VITALS: BP 110/90
[2017-06-03 22:11] VITALS: BP 140/78
[2017-06-04 05:46] VITALS: BP 160/80
--- NOTE | 2017-06-04 07:43 | PN- Housestaff ---
See Addendum Subjective Follow-up For: COPD Exacerbation Viral Bronchitis? Subjective: No overnight event. Patient felt about the same from last day however endorsed less cough. Still c/o of burning feelings of chest but not as aggravated pain as last night. patient acknowledged that her EKG and troponin from last night was normal, and will notify me if the pain aggravtes. Review of Systems Constitutional: Reports: see HPI. Objective Last 24 Hrs of Vital Signs/I&O Vital Signs Date Time Temp Pulse Resp B/P B/P Pulse O2 O2 Flow FiO2 Mean Ox Delivery Rate 06/04 0546 98.2 58 20 160/80 97 Nasal 4.0L Cannula 06/04 0012 62 98 06/04 0000 BIPAP 06/03 2239 80 98 06/03 2211 98.3 75 20 140/78 91 06/03 1610 94 Nasal 2.0L Cannula 06/03 1600 95 Nasal 2.0L Cannula 06/03 1420 98.2 65 20 110/90 95 Intake & Output 06/04 1600 06/04 0800 06/04 0000 Intake Total 300 600 Output Total Balance 300 600 Intake, Oral 300 600 Physical Exam General Appearance: Alert, Oriented X3, Cooperative, No Acute Distress Cardiovascular: Regular Rate Lungs: Normal Air Movement, bronchi mildly however no wheezing. Abdomen: Normal Bowel Sounds, Soft, No Tenderness Neurological: Normal Speech Extremities: No Edema, Normal Pulses, No Tenderness/Swelling Current Medications: Current Medications Sig/Ralph Start time Last Medication Dose Route Stop Time Status Admin Acetaminophen 650 MG Q6P PRN 05/25 1445 AC PO Albuterol Sulfate 3 ML EVERY 4 HRS/AWAKE 05/28 1200 AC 06/04 INH 0843 Albuterol Sulfate 2 PUF Q4-6 PRN PRN 05/25 1515 AC 05/28 INH 2101 Artificial Tears 2 GTT 4 TIMES/DAY PRN 05/27 0400 AC 05/27 OPH 0853 Aspirin Buffered 81 MG QAM 05/26 1000 AC 06/03 PO 1031 Atorvastatin Calcium 40 MG QPM 05/25 2200 AC 06/03 PO 2041 Benzonatate 100 MG TID 05/27 1124 AC 06/03 PO 2040 Budesonide/ 2 PUF BID 05/25 2200 AC 06/03 Formoterol Fumarate INH 203 Docusate Sodium 100 MG BID 05/25 220 AC 05/27 PO 2050 Droxidopa 600 MG TID 05/25 1600 AC 06/03 PO 2042 Enoxaparin Sodium 40 MG DAILY / 1431 AC 06/03 SC 1029 Fenofibrate 145 MG DAILY / 1000 AC 06/03 PO 1031 Fluticasone 2 SPRAY DAILY / 1000 AC 06/03 Propionate TRUMAN 1029 Folic Acid 1 MG QAM 05/26 1000 AC 06/03 PO 1031 Guaifenesin 10 ML Q6P PRN 05/27 2045 AC 05/29 PO 0525 Guaifenesin 600 MG Q12 05/27 1124 AC 06/03 PO 2041 Ibuprofen 400 MG .STK-MED ONE 06/03 1645 DC PO 06/03 1646 Ibuprofen 400 MG Q6P PRN 05/25 1445 AC 06/03 PO 1648 Insulin Aspart 0 TIDAC 05/25 1700 AC 06/04 SC 0814 Ipratropium [place] 2.5 ML EVERY 4 HRS/AWAKE 05/28 1200 AC 06/04 INH 0843 Levothyroxine Sodium 0.05 MG DAILY AC 05/26 0700 AC 06/04 PO 0513 Linaclotide 290 MCG DAILY / 1000 AC 06/03 PO 1032 [place] Carbonate 300 MG 1000 / 1000 AC 06/03 PO 1031 [place] Carbonate 600 MG AT BEDTIME 05/25 2200 AC 06/03 PO 2041 Meclizine HCl 12.5 MG TID PRN 05/25 1515 AC PO Methylprednisolone 40 MG Q8 06/03 0600 AC 06/04 IV 0513 Midodrine 10 MG BID 05/25 2200 AC 06/03 PO 2039 Omeprazole 40 MG DAILY AC 05/28 1054 AC 06/04 PO 0513 Oxycodone/ 1 TAB Q6P PRN 06/02 0900 AC 06/04 Acetaminophen PO 0516 Ropinirole HCl 1.5 MG QPM 05/25 2200 AC 06/03 PO 2040 Sertraline HCl 150 MG 0800 / 0800 AC 06/04 PO 0813 Zolpidem Tartrate 5 MG AT BEDTIME 05/25 2200 AC 06/03 PO 2039 Last 24 Hrs of Lab/Matthieu Results Last 24 Hrs of Labs/Mics: Laboratory Tests 06/03/17 1640: Troponin I < 0.01 Assessment/Plan Assessment: Ms. Virgen, is a 51-year-old female with significant past medical history of COPD [on 2 L of oxygen at night with CPAP], coronary artery disease [40% LAD stenosis, [id number]], orthostatic hypotension, obstructive sleep apnea [ compliant with her CPAP, follows Dr. Wall], diabetes, pericarditis status post pericardial window, bipolar depression, restless leg syndrome, TIA, hypothyroidism, and recurrent supratentorial syncopal episodes who presents to the hospital emergency department with complaints of dyspnea and cough. #Acute COPD exacerbation * Flu negative * TRC/Nebs with incentive spirometry * Continued IV steroid 40mg tapered to q12. * Titrate supplemental oxygen 2L O2 via nasal canula nocturnal oxygen at baseline + Nocturnal CPAP Follow up Pulm recommendations #DM: - NovoLog sliding scale - Accuchecks TIDAC/HS Diabetic diet DVT ppx-Lovenox 40mg subcutaneous daily Full code Problem List: 1. COPD with acute exacerbation 2. Chest pain Pain Ratin Pain Location: Mid-chest burning pain. Pain Goal: Pain 4 or less Pain Plan: see AP Tomorrow's Labs & Rationales: NA
--- NOTE | 2017-06-04 08:27 | PN- Pulmonary ---
Subjective HPI/Critical Care Issues: Patient feels markedly improved shortness breath is reduced Objective Current Medications: Current Medications Sig/Ralph Start time Last Medication Dose Route Stop Time Status Admin Acetaminophen 650 MG Q6P PRN 02/ 1445 AC PO Albuterol Sulfate 3 ML EVERY 4 HRS/AWAKE / 1200 AC 06/03 INH 202 Albuterol Sulfate 2 PUF Q4-6 PRN PRN 02/ 1515 AC 05/28 INH 2101 Artificial Tears 2 GTT 4 TIMES/DAY PRN 02/ 0400 AC 02 OPH 0853 Aspirin Buffered 81 MG QAM 02/ 1000 AC 06/03 PO 1031 Atorvastatin Calcium 40 MG QPM / 2200 AC 06/03 PO 2041 Benzonatate 100 MG TID / 1124 AC 06/03 PO 2040 Budesonide/ 2 PUF BID 05/25 2200 AC 06/03 Formoterol Fumarate INH 203 Docusate Sodium 100 MG BID 05/25 2200 AC 05/27 PO 2050 Droxidopa 600 MG TID / 1600 AC 06/03 PO 2042 Enoxaparin Sodium 40 MG DAILY / 1431 AC 06/03 SC 1029 Fenofibrate 145 MG DAILY / 1000 AC 06/03 PO 1031 Fluticasone 2 SPRAY DAILY 02/ 1000 AC 06/03 Propionate TRUMAN 1029 Folic Acid 1 MG QAM / 1000 AC 06/03 PO 1031 Guaifenesin 10 ML Q6P PRN 02/ 2045 AC 05/29 PO 0525 Guaifenesin 600 MG Q12 02/ 1124 AC 06/03 PO 2041 Ibuprofen 400 MG .STK-MED ONE 06/03 1645 DC PO 02/12 1646 Ibuprofen 400 MG Q6P PRN 02/03 1445 AC 06/03 PO 1648 Insulin Aspart 0 TIDAC 05/25 1700 AC 06/04 SC 0814 Ipratropium [place] 2.5 ML EVERY 4 HRS/AWAKE 05/28 1200 AC 06/03 INH 202 Levothyroxine Sodium 0.05 MG DAILY AC 05/26 0700 AC 06/04 PO 0513 Linaclotide 290 MCG DAILY 02/ 1000 AC 06/03 PO 1032 [place] Carbonate 300 MG 1000 02/ 1000 AC 06/03 PO 1031 [place] Carbonate 600 MG AT BEDTIME 05/25 2200 AC 06/03 PO 2041 Meclizine HCl 12.5 MG TID PRN 05/25 1515 AC PO Methylprednisolone 40 MG Q8 06/03 0600 AC 06/04 IV 0513 Midodrine 10 MG BID 05/25 220 AC 06/03 PO 2039 Omeprazole 40 MG DAILY AC 05/28 1054 AC 06/04 PO 0513 Oxycodone/ 1 TAB Q6P PRN 06/02 0900 AC 06/04 Acetaminophen PO 0516 Ropinirole HCl 1.5 MG QPM 05/25 220 AC 06/03 PO 2040 Sertraline HCl 150 MG 0800 05/26 0800 AC 06/04 PO 08 Zolpidem Tartrate 5 MG AT BEDTIME 05/25 2199 AC 06/03 PO 2038 Vital Signs & I&O Last 24 Hrs of Vitals and I&O: Vital Signs Date Time Temp Pulse Resp B/P B/P Pulse O2 O2 Flow FiO2 Mean Ox Delivery Rate 06/04 0546 98.2 58 20 160/80 97 Nasal 4.0L Cannula 06/04 0012 62 98 06/04 0000 BIPAP 06/03 2239 80 98 06/03 2211 98.3 75 20 140/78 91 06/03 1610 94 Nasal 2.0L Cannula 06/03 1600 95 Nasal 2.0L Cannula 06/03 1420 98.2 65 20 110/90 95 Intake & Output 06/04 1600 06/04 0800 06/04 0000 Intake Total 300 600 Output Total Balance 300 600 Intake, Oral 300 600 4 L nasal oxygen 98% saturation exam for chest shows somewhat diminished breath sounds are no wheezes or crackles cardiac exam shows regular S1 and S2 without murmurs Impression/Plan Impression/Plan Impression/Plan: 51-year-old woman admitted with exacerbation of COPD is clinically improved Recommendations: DC IV steroids begin prednisone Attempt to obtain sputum C&S. Taper FiO2 with improved saturations patient
[2017-06-04 12:56] VITALS: BP 150/80
[2017-06-04 22:29] VITALS: BP 150/62
[2017-06-05 06:03] VITALS: BP 142/82
--- NOTE | 2017-06-05 07:23 | PN- Housestaff ---
Clementine Strickland 06/05/17 0723: Subjective Follow-up For: COPD Exacerbation Viral Bronchitis? Subjective: No overnight event. Patient felt slightly improved on chest burning after IV protonix last night, and less coughing. Again, she acknowledged that her EKG/ trop were negative yesterday. Review of Systems Constitutional: Reports: see HPI. Objective Last 24 Hrs of Vital Signs/I&O Vital Signs Date Time Temp Pulse Resp B/P B/P Pulse O2 O2 Flow FiO2 Mean Ox Delivery Rate 06/05 0603 97.9 64 20 142/82 91 Room Air 06/05 0042 60 98 06/05 0000 Nasal 2.0L Cannula 06/04 2229 98.1 71 22 150/62 90 Nasal Cannula 06/04 1954 92 Nasal 2.0L Cannula 06/04 1600 Nasal 2.0L Cannula 06/04 1553 96 Nasal 2.0L Cannula 06/04 1256 97.7 80 22 150/80 97 Nasal 2.0L Cannula 06/04 0843 93 Room Air Room Air Intake & Output 06/05 1600 06/05 0800 06/05 0000 Intake Total 300 300 Output Total Balance 300 300 Intake, Oral 300 300 Physical Exam General Appearance: Alert, Oriented X3, Cooperative, No Acute Distress Cardiovascular: Regular Rate Lungs: Normal Air Movement, mild wheeze at left lung Abdomen: Normal Bowel Sounds, Soft, No Tenderness Neurological: Normal Speech Extremities: No Edema, Normal Pulses Current Medications: Current Medications Sig/Ralph Start time Last Medication Dose Route Stop Time Status Admin Acetaminophen 650 MG Q6P PRN 05/25 1445 AC PO Albuterol Sulfate 3 ML EVERY 4 HRS/AWAKE 05/28 1200 AC 06/04 INH 1951 Albuterol Sulfate 2 PUF Q4-6 PRN PRN 05/25 1515 AC 05/28 INH 2101 Artificial Tears 2 GTT 4 TIMES/DAY PRN 05/27 0400 AC 05/27 OPH 0853 Aspirin Buffered 81 MG QAM 05/26 1000 AC 06/04 PO 1048 Atorvastatin Calcium 40 MG QPM 05/25 2200 AC 06/04 PO 2136 Benzonatate 100 MG TID 05/27 1124 AC 06/04 PO 214 Budesonide/ 2 PUF BID 05/25 2200 AC 06/04 Formoterol Fumarate INH 214 Docusate Sodium 100 MG BID 05/25 2200 AC 05/27 PO 2050 Droxidopa 600 MG TID 05/25 1600 AC 06/04 PO 2137 Enoxaparin Sodium 40 MG DAILY 05/25 1431 AC 06/04 SC 1046 Fenofibrate 145 MG DAILY 05/26 1000 AC 06/04 PO 1048 Fluticasone 2 SPRAY DAILY / 1000 AC 06/04 Propionate TRUMAN 1046 Folic Acid 1 MG QAM 05/26 1000 AC 06/04 PO 1048 Guaifenesin 10 ML Q6P PRN 05/27 2045 AC 05/29 PO 0525 Guaifenesin 600 MG Q12 05/27 1124 AC 06/04 PO 2136 Ibuprofen 400 MG .STK-MED ONE 06/04 1532 DC PO 06/04 1533 Ibuprofen 400 MG Q6P PRN 05/25 1445 AC 06/04 PO 1533 Insulin Aspart 0 TIDAC 05/25 1700 AC 06/04 SC 1153 Ipratropium [place] 2.5 ML EVERY 4 HRS/AWAKE 05/28 1200 AC 06/04 INH 1951 Levothyroxine Sodium 0.05 MG DAILY AC 05/26 0700 AC 06/05 PO 0536 Linaclotide 290 MCG DAILY 05/27 1000 AC 06/04 PO 1048 [place] Carbonate 300 MG 1000 05/26 1000 AC 06/04 PO 1048 [place] Carbonate 600 MG AT BEDTIME 05/25 2200 AC 06/04 PO 2143 Meclizine HCl 12.5 MG TID PRN 05/25 1515 AC PO Methylprednisolone 40 MG Q12 06/04 2200 AC 06/04 IV 2140 Methylprednisolone 40 MG Q8 06/03 0600 DC 06/04 IV 0513 Midodrine 10 MG BID 05/25 2200 AC 06/04 PO 2137 [place] Sulfate 2 MG ONCE ONE 06/04 1330 DC 06/04 IV 06/04 1331 1337 Omeprazole 40 MG DAILY AC 05/28 1054 DC 06/04 PO 0513 Ondansetron HCl 4 MG ONCE ONE 06/04 1330 DC 06/04 IV 06/04 1331 1337 Oxycodone/ 1 TAB Q6P PRN 06/02 0900 AC 06/05 Acetaminophen PO 0645 Pantoprazole Sodium 40 MG BID 06/04 2200 AC 06/04 IV 2140 Ropinirole HCl 1.5 MG QPM 05/25 2200 AC 06/04 PO 2140 Sertraline HCl 150 MG 0800 05/26 0800 AC 06/04 PO 0813 Zolpidem Tartrate 5 MG AT BEDTIME 05/25 2200 AC 06/04 PO 2136 Last 24 Hrs of Lab/Matthieu Results Last 24 Hrs of Labs/Mics: Laboratory Tests 06/04/17 1321: Troponin I < 0.01 Assessment/Plan Assessment: Ms. Virgen, is a 51-year-old female with significant past medical history of COPD [on 2 L of oxygen at night with CPAP], coronary artery disease [40% LAD stenosis, [id number]], orthostatic hypotension, obstructive sleep apnea [ compliant with her CPAP, follows Dr. Wall], diabetes, pericarditis status post pericardial window, bipolar depression, restless leg syndrome, TIA, hypothyroidism, and recurrent supratentorial syncopal episodes who presents to the hospital emergency department with complaints of dyspnea and cough. #Acute COPD exacerbation * Flu negative * TRC/Nebs with incentive spirometry * Continued IV steroid 40mg tapered to qd pending pulm recommendation. * Titrate supplemental oxygen 2L O2 via nasal canula nocturnal oxygen at baseline + Nocturnal CPAP Follow up Pulm recommendations #DM: - NovoLog sliding scale - Accuchecks TIDAC/HS Diabetic diet DVT ppx-Lovenox 40mg subcutaneous daily Full code Problem List: 1. COPD with acute exacerbation Pain Ratin Pain Location: NA Pain Goal: Remain pain free Pain Plan: see AP Tomorrow's Labs & Rationales: CBC/BEP Maria L Mg 06/05/17 1229: Attending MD Review Statement Attending Statement Attending MD Statement: examined this patient, discuss w/resident/PA/[employer], agreed w/resident/PA/[employer], discussed with family, reviewed EMR data (avail), discussed with nursing, discussed with case mgmt, reviewed images, amended to note Attending Assessment/Plan: 51-year-old female extensive past medical history including diabetes, hypertension, pericardial effusion with a window in the past, hyperlipidemia, COPD and obstructive sleep apnea uses CPAP at night admitted with acute COPD exacerbation and acute on chronic respiratory failure. Weekend events noted with wheezing b/l with not much improvement so added iv steroids. Patient with much improvement today with decreased wheezing. Continue with PO steroids taper, inhaled bronchodilators. POTS cont home meds. gi/dvt prophyalxis full code. anticipated dc today. Patient wants to go home. DC planning as per PT. FOLLOW UP PCP Dr Sterling in 3-5 days of discharge [facility]monary [facility] as information provided by case management. Cardiology Dr Bartlett in 3-4 weeks of discharge.
--- NOTE | 2017-06-05 08:17 | PN- Pulmonary ---
Subjective HPI/Critical Care Issues: Patient shortness breath is markedly improved she is comfortable on room air Objective Current Medications: Current Medications Sig/Ralph Start time Last Medication Dose Route Stop Time Status Admin Acetaminophen 650 MG Q6P PRN / 1445 AC PO Albuterol Sulfate 3 ML EVERY 4 HRS/AWAKE / 1200 AC 06/04 INH 1951 Albuterol Sulfate 2 PUF Q4-6 PRN PRN 02 1515 AC 05/28 INH 2101 Artificial Tears 2 GTT 4 TIMES/DAY PRN 02/ 0400 AC 05/27 OPH 0853 Aspirin Buffered 81 MG QAM / 1000 AC 06/04 PO 1048 Atorvastatin Calcium 40 MG QPM 05/25 2200 AC 06/04 PO 2136 Benzonatate 100 MG TID 05/27 1124 AC 06/04 PO 2142 Budesonide/ 2 PUF BID 05/25 2200 AC 06/04 Formoterol Fumarate INH 214 Docusate Sodium 100 MG BID 05/25 2200 AC 05/27 PO 2050 Droxidopa 600 MG TID 05/25 1600 AC 06/04 PO 2137 Enoxaparin Sodium 40 MG DAILY 05/25 1431 AC 06/04 SC 1046 Fenofibrate 145 MG DAILY 05/26 1000 AC 06/04 PO 1048 Fluticasone 2 SPRAY DAILY 05/27 1000 AC 06/04 Propionate TRUMAN 1046 Folic Acid 1 MG QAM 05/26 1000 AC 06/04 PO 1048 Guaifenesin 10 ML Q6P PRN 02/ 2045 AC 05/29 PO 0525 Guaifenesin 600 MG Q12 / 1124 AC 06/04 PO 2136 Ibuprofen 400 MG .STK-MED ONE 06/04 1532 DC PO 06/04 1533 Ibuprofen 400 MG Q6P PRN / 1445 AC 06/04 PO 1533 Insulin Aspart 0 TIDAC 05/25 1700 AC 06/04 SC 1153 Ipratropium [place] 2.5 ML EVERY 4 HRS/AWAKE 05/28 1200 AC 06/04 INH 1951 Levothyroxine Sodium 0.05 MG DAILY AC 05/26 0700 AC 06/05 PO 0536 Linaclotide 290 MCG DAILY 05/27 1000 AC 06/04 PO 1048 [place] Carbonate 300 MG 1000 05/26 1000 AC 06/04 PO 1048 [place] Carbonate 600 MG AT BEDTIME 05/25 2199 AC 06/04 PO 2143 Meclizine HCl 12.5 MG TID PRN 05/25 1515 AC PO Methylprednisolone 40 MG Q12 06/040 AC 06/04 IV 2140 Methylprednisolone 40 MG Q8 06/03 0600 DC 06/04 IV 0513 Midodrine 10 MG BID 05/25 2200 AC 06/04 PO 2137 Morphine Sulfate 2 MG ONCE ONE 06/04 1330 DC 06/04 IV 06/04 1331 1337 Omeprazole 40 MG DAILY AC 05/28 1054 DC 06/04 PO 0513 Ondansetron HCl 4 MG ONCE ONE 06/04 1330 DC 06/04 IV 06/04 1331 1337 Oxycodone/ 1 TAB Q6P PRN 06/02 0900 AC 06/05 Acetaminophen PO 0645 Pantoprazole Sodium 40 MG BID 06/04 220 AC 06/04 IV 2140 Ropinirole HCl 1.5 MG QPM 05/25 2200 AC 06/04 PO 2140 Sertraline HCl 150 MG 0800 05/26 0800 AC 06/04 PO 0813 Zolpidem Tartrate 5 MG AT BEDTIME 05/25 220 AC 06/04 PO 2136 Vital Signs & I&O Last 24 Hrs of Vitals and I&O: Vital Signs Date Time Temp Pulse Resp B/P B/P Pulse O2 O2 Flow FiO2 Mean Ox Delivery Rate 06/05 0603 97.9 64 20 142/82 91 Room Air 06/05 0042 60 98 06/05 0000 Nasal 2.0L Cannula 06/04 2229 98.1 71 22 150/62 90 Nasal Cannula 06/04 1954 92 Nasal 2.0L Cannula 06/04 1600 Nasal 2.0L Cannula 06/04 1553 96 Nasal 2.0L Cannula 06/04 1256 97.7 80 22 150/80 97 Nasal 2.0L Cannula 06/04 0843 93 Room Air Room Air Intake & Output 06/05 1600 06/05 0800 06/05 0000 Intake Total 300 300 Output Total Balance 300 300 Intake, Oral 300 300 Room air oxygen saturation 91% exam for chest shows decreased breath sounds there are no wheezes heard cardiac exam shows regular S1 and S2 without murmurs Impression/Plan Impression/Plan Impression/Plan: 51-year-old woman admitted with exacerbation of COPD is clinically improved now on room air and oral prednisone Recommendations: Patient's history status is markedly improved slow prednisone taper.
[2017-06-05] MEDS ORDERED: PREDNISONE10 M2 PO ×3 (09:24→11:34)
== END 2017-06-05 14:40 | disposition home health service (06) | DRG 190 ==
LOC: ERH 10:14 → ERHI 13:29 → 2NA 13:29 → ENRESERV 14:02 → ENTRNSPT 17:07 → 2NA 17:26 → CMPTRNSPT 18:02 → 2NA 20:15
PROVIDERS: Emergency Medicine; Internal Medicine Cardiovascular Disease; Student in an Organized Health Care Education/Training Program
DX: J44.0 Chronic obstructive pulmonary disease with (acute) lower respiratory infection (principal); J96.21 Acute and chronic respiratory failure with hypoxia; E11.42 Type 2 diabetes mellitus with diabetic polyneuropathy; E66.2 Morbid (severe) obesity with alveolar hypoventilation; F11.20 Opioid dependence, uncomplicated; J44.1 Chronic obstructive pulmonary disease with (acute) exacerbation; I25.10 Atherosclerotic heart disease of native coronary artery without angina pectoris; I10 Essential (primary) hypertension; I95.1 Orthostatic hypotension; G25.81 Restless legs syndrome; E03.9 Hypothyroidism, unspecified; F31.9 Bipolar disorder, unspecified; K21.9 Gastro-esophageal reflux disease without esophagitis; Z68.33 Body mass index [BMI] 33.0-33.9, adult; Z86.73 Personal history of transient ischemic attack (TIA), and cerebral infarction without residual deficits; Z79.84 Long term (current) use of oral hypoglycemic drugs; G50.0 Trigeminal neuralgia; F19.10 Other psychoactive substance abuse, uncomplicated; F17.210 Nicotine dependence, cigarettes, uncomplicated; F41.9 Anxiety disorder, unspecified; J20.8 Acute bronchitis due to other specified organisms
CPT/HCPCS: 2NAP; 2NASP; 36415; 71045; 71046; 82436; 87040; 87070; 87449; 87450; 87804; 87804-59; 93005; 93010; 96365; 96375; 97110-GO; 97116-GO; 97161-GP; 97530-GO; J0456; J0696; J1200; J1650; J1940; J2405; J2920; J2930; J3490; J7060; J7608

== ENCOUNTER 2017-06-23 09:24 | Observation (INO) | payer OTHER, MEDICARE ==
[~2017-06-23] VITALS: Ht 157.5 cm; Wt 90.7 kg
[~2017-06-23 09:24] MED LIST changes: +CLONAZEPAM0.5 M2 PO; +LINZESS290 MC1 PO; +LUNESTA3 M1 PO; +REQUIP1 M1 PO
--- NOTE | 2017-06-23 09:50 | ED MVC/FALL/TRAUMA COMPLAINT ---
History of Present Illness General Chief Complaint: Syncope and Near-Syncope Stated Complaint: BIBA SYNCOPE Source: patient Exam Limitations: no limitations Vital Signs & Intake/Output Vital Signs & Intake/Output Vital Signs Date Time Temp Pulse Resp B/P B/P Pulse O2 O2 Flow FiO2 Mean Ox Delivery Rate 06/23 1536 97.6 72 18 159/76 92 Room Air 06/23 0931 98.7 76 18 140/89 93 Room Air Allergies Coded Allergies: codeine (Severe, ITCH 10/26/16) lemon (Severe, SOB 10/26/16) melatonin (Severe, HIVES/RASH 10/26/16) PER . -CG 07/16/16 propranolol (Severe, SHOCK PER PT 10/26/16) Reconcile Medications Albuterol Sulfate (Proair Hfa) 90 MCG HFA.AER.AD 2 PUF INH Q4-6 PRN PRN COPD (Reported) Aspirin (Ecotrin*) 81 MG TABLET.DR 1 TAB PO QAM HEART/BLOOD (Reported) Atorvastatin Calcium (Lipitor) 40 MG TABLET 1 TAB PO QPM CHOLESTEROL ( Reported) Budesonide/Formoterol Fumarate (Symbicort 160-4.5 Mcg Inhaler) 10.2 GM HFA.AER.AD 2 PUF INH BID COPD (Reported) Clonazepam 0.5 MG TABLET 1 TAB PO QPM SLEEP (Reported) Droxidopa (Northera) 100 MG CAPSULE 6 CAP PO TID POTS (Reported) Ergocalciferol (Vitamin D2) (Vitamin D2) 50,000 UNIT CAPSULE 1 CAP PO QTHURS SUPPLEMENT (Reported) Fenofibrate Nanocrystallized (Fenofibrate) 145 MG TABLET 1 TAB PO DAILY CHOLESTEROL/TRIGLYCERIDES (Reported) Fluticasone Propionate 16 GM SPRAY.SUSP 2 SPRAY NASB DAILY ALLERGIES ( Reported) Folic Acid 1 MG TABLET 1 TAB PO QAM SUPPLEMENT (Reported) Levothyroxine Sodium 50 MCG TABLET 1 TAB PO DAILY AC THYROID (Reported) Linaclotide (Linzess) 290 MCG CAPSULE 1 CAP PO DAILY CIC (Reported) Jagual Carbonate 300 MG CAPSULE 600 MG PO AT BEDTIME bipolar depression Jagual Carbonate 300 MG CAPSULE 1 TAB PO 1000 bipolar d/o Meclizine HCl 12.5 MG TABLET 1 TAB PO TID PRN VERTIGO (Reported) Metformin HCl 1,000 MG TABLET 1 TAB PO BID DIABETES (Reported) Midodrine HCl 10 MG TABLET 1 TAB PO BID POTS (Reported) Pantoprazole Sodium (Protonix) 40 MG TABLET.DR 1 TAB PO DAILY GERD (Reported) Ropinirole HCl (Requip) 1 MG TABLET 2 TAB PO QPM RLS (Reported) Ropinirole HCl 0.5 MG TABLET 1 TAB PO BID RLS (Reported) Sertraline HCl 50 MG TABLET 150 MG PO 0800 anti-depressant Triage Note: PT BIBA S/P FALL FROM SYNCOPY. PT STATES THAT SHE THINKS SHE HIT HER HEAD AND PASSED OUT. PT STATES SHE WOKE UP IMMEDIATELY AND WAITED FOR HER SISTER TO FIND HER ABOUT 30 MIN. PT DENIES THINNERS AND IS COLLARED AND PER EMS REFUSED IV. PT ALSO C/O LEFT SIDE WEAKNESS. GCS 15 PT ALSO C/O LEFT SIDED HIP PAIN 5/10 Triage Nurses Notes Reviewed? yes Onset: Just prior to arrival Duration: minute(s):, constant, continues in ED, waxing and waning Timing: single episode today Severity: severe Injuries/Fall Location: head, neck, back, lower extremity Method of Injury: fall Loss of Consciousness: brief (seconds) (DUE TO SYNCOPE) HPI: Patient presents for evaluation of injury sustained status post syncopal episode prior to arrival. Patient states that she was walking from her bathroom through the kitchen to her bedroom when she had a sudden onset of loss of consciousness. Patient denies any preceding chest pain or heart palpitations or headache. Past History Travel History Traveled to [place] past 21 day No Medical History Any Pertinent Medical History? see below for history Neurological: dizziness, peripheral neuropathy, TIA, TRIGEMINAL NEURALGIA NEUROPATHY gait disturbance (uses a walker); ?neurological basis EENT: NONE Cardiovascular: angina (hx "atypical chest pain" ), hypertension, hyperlipidemia , HIGH TRYGLCERIDES recent cardiac catheterizations were negative for occlusive coronary artery disease PERICARDITIS Respiratory: pneumonia, COPD, OBSSLEEP BIPAP Gastrointestinal: ACID REFLUX CHRONIC/IDEOPA ABDOMINAL HERNIA Renal: NONE Musculoskeletal: R ANKLE FX AND REPAIR Psychiatric: anxiety, bipolar disease, depression, opioid dependence, substance abuse (possible benzo. 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 MOTHER (CHF, COPD). Hx Contributory? No Review of Systems Review of Systems Constitutional: Reports: no symptoms. Eyes: Reports: no symptoms. Ears, Nose, Throat, Mouth: Reports: no symptoms. Respiratory: Reports: no symptoms. Cardiovascular: Reports: syncope. Gastrointestinal/Abdominal: Reports: no symptoms. Genitourinary: Reports: no symptoms. Musculoskeletal: Reports: see HPI. Skin: Reports: no symptoms. Neurological/Psychological: Reports: no symptoms. All Other Systems: Reviewed and Negative Physical Exam Physical Exam General Appearance: SEE BELOW Comments: Gen.: Well-nourished, well-developed, no acute respiratory distress. Head: Normocephalic, atraumatic, tenderness over the left parietotemporal region without laceration or abrasion or soft tissue swelling Eyes: Normal inspection bilaterally, james, EOMI Ears: Normal inspection bilaterally Nose: Normal inspection Throat/mouth : Moist mucosa Neck: Cervical collar in place Heart: Regular rate and rhythm, no murmurs rubs or gallops Lungs: Clear to auscultation bilaterally with normal air entry Chest: Nontender Back: Normal range of motion, nontender Abdomen: Soft, nontender, nondistended, normal bowel sounds Pelvis: Stable and nontender Extremities: Normal range of motion grossly, tenderness of the left hip and knee with range of motion Neurologic: Cranial nerves grossly intact, speech is clear Skin: warm and dry and without ecchymoses or soft tissue swelling or erythema Psychiatric: Calm, cooperative, no apparent delusions or hallucinations Core Measures ACS in differential dx? Yes CVA/TIA Diagnosis No Sepsis Present: No Sepsis Focused Exam Completed? No Progress Differential Diagnosis: TRAUMATIC INJURY, DYSRHYTHMIA, DEHYDRATION, ORTHOSTATIC SYNCOPE, cva/STROKE Plan of Care: Orders Procedure Date/time Status Consistent Carbohydrate 1 06/[address] in observation 06/23 1640 Active Misc Message 06/23 1640 Active ED Holding Orders 06/23 1640 Active Vital Signs 06/23 1640 Active Code Status 06/23 1640 Active Saline Lock 06/23 0949 Active URINALYSIS 03/04 0949 Complete TROPONIN LEVEL 06/23 948 Complete PROTHROMBIN TIME 06/23 948 Complete LIPASE 06/23 948 Complete COMPREHENSIVE METABOLIC PANEL 06/23 948 Complete CBC WITHOUT DIFFERENTIAL 06/23 948 Complete EKG 06/24 935 Active Laboratory Tests 06/23/17 1255: Urinalysis LIGHT H, Urine Color YEL, Urine Clarity HAZY H, Urine pH 6.0, Ur Specific Whick 1.025, Urine Protein NEG, Urine Ketones NEG, Urine Nitrite NEG, Urine Bilirubin NEG, Urine Urobilinogen 0.2, Ur Leukocyte Esterase SMALL H, Ur Microscopic SEDIMENT EXAMINED, Urine RBC RARE, Urine WBC 10-15 H, Ur Epithelial Cells FEW, Urine Bacteria FEW H, Hyaline Casts RARE H, Urine Mucus MOD H, Urine Hemoglobin NEG, Urine Glucose NEG 06/23/17 1000: Anion Gap 11, Estimated GFR > 60, BUN/Creatinine Ratio 21.7, Glucose 186 H, Calcium 9.9, Total Bilirubin 0.4, AST 12 L, ALT 25, Alkaline Phosphatase 45, Troponin I < 0.01, Total Protein 6.5, Albumin 4.4, Globulin 2.1, Albumin/ Globulin Ratio 2.1, Lipase 187, PT 11.0, INR 1.01, CBC w Diff NO MAN DIFF REQ, RBC 4.34, MCV 86.0, MCH 28.3, MCHC 32.9 L, RDW 14.6 H, MPV 9.3, Gran % 73.1, Lymphocytes % 18.8 L, Monocytes % 4.3, Eosinophils % 3.2, Basophils % 0.6, Absolute Granulocytes 6.0, Absolute Lymphocytes 1.6, Absolute Monocytes 0.4, Absolute Eosinophils 0.3, Absolute Basophils 0 Diagnostic Imaging: Discussed w/RAD: Radiology Read, CT Scan. Radiology Impression: PATIENT: DAIJA DONAHUE PRESENT AGE: 51 PATIENT ACCOUNT NO: [id number] : 65 LOCATION: [facility] ORDERING PHYSICIAN: Jassi Malone MD SERVICE DATE: 06/23/17 EXAM TYPE : CAT - CT CERV SPINE WO IV CONTRAST; CT FACE/SINUS WITHOUT CONT; CT HEAD WO IV CONTRAST EXAMINATION: CT HEAD WITHOUT CONTRAST CT FACIAL BONES WITHOUT CONTRAST CT CERVICAL SPINE WITHOUT CONTRAST CLINICAL INFORMATION: 51-year-old woman post fall. COMPARISON: 06/21/[address] TECHNIQUE: Imaging was performed from the skull base to vertex without intravenous administration of contrast. In addition , helical noncontrast CT imaging was acquired through the cervical spine and facial bones and source images were reviewed along with axial reconstructions and sagittal and coronal MPRs. DLP: 1650 mGy-cm FINDINGS: HEAD: No intracranial mass, hemorrhage, or midline shift is visualized. The ventricles and sulci are age-appropriate. No extra-axial collections are identified. FACIAL BONES: There is no evidence of an acute facial bone fracture. Mild mucosal thickening is seen in the right maxillary sinus and right anterior ethmoid air cells. No significant dental disease is visualized. The orbits are unremarkable in appearance. CERVICAL SPINE: There is no evidence of acute cervical spine fracture. Vertebral bodies remain normal in area and there is straightening of the normal cervical lordosis. Degenerative endplate remodeling is most apparent at C5-C6 and C6-C7. There is moderate loss of normal disc height at C5-C6. No pre- or paravertebral soft tissue abnormality is identified. Limited assessment of the lung apices is unremarkable. IMPRESSION: 1. No acute intracranial process or discrete facial bone fracture. 2. No acute cervical spine fracture or traumatic subluxation. DICTATED BY: Bertha Suh MD DATE/TIME DICTATED:06/23/171136 DETENTION OFFICER:ROSALINDA DATE/TIME TRANSCRIBED:06/23/171136 CONFIDENTIAL, DO NOT COPY WITHOUT APPROPRIATE AUTHORIZATION. <Electronically signed in Other Vendor System> SIGNED BY: Bertha Suh MD 06/23/17 1147, PATIENT: DAIJA DONAHUE PRESENT AGE: 51 PATIENT ACCOUNT NO: [id number] : 65 LOCATION: [facility] ORDERING PHYSICIAN: Jassi Malone MD SERVICE DATE: 06/23/17 EXAM TYPE: RAD - XRY-FEMUR, LEFT 2 VIEWS EXAMINATION: XR FEMUR, LEFT CLINICAL INFORMATION: Status post fall with left hip and knee pain. COMPARISON: Left knee radiography 01/17/2017. TECHNIQUE: AP and lateral views of the left femur were obtained. FINDINGS: No fracture or dislocation is demonstrated. Given overlying soft tissues, the trabeculae of the left femoral neck are not well visualized. Minimal hypertrophic changes at the left hip joint. There are mild degenerative changes about the knee joint. No significant knee joint effusion or lipohemarthrosis. Surgical clips adjacent to the distal femur. IMPRESSION: No acute osseous abnormality demonstrated. If clinical symptoms persist, consider further evaluation with femur MRI to evaluate for radiographically occult injury. DICTATED BY: Mp Valderrama MD DATE /TIME DICTATED:06/23/171501 DETENTION OFFICER:ROSALINDA DATE/TIME TRANSCRIBED: 06/23/171501 CONFIDENTIAL, DO NOT COPY WITHOUT APPROPRIATE AUTHORIZATION. < Electronically signed in Other Vendor System> SIGNED BY: Mp Valderrama MD 06/23/17 1516 Comments: 06/23/2017 13:15 patient's cervical collar was discontinued once the results of the CAT scan was known. Patient has mild bilateral paraspinal muscular tenderness. I have updated Daija on her test results. Departure Departure Disposition: STILL A PATIENT Condition: Stable Clinical Impression Primary Impression: Syncope Qualifiers: Syncope type: unspecified Qualified Code: R55 - Syncope and collapse Secondary Impressions: Back strain Qualifiers: Encounter type: initial encounter Qualified Code: S39.012A - Strain of muscle, fascia and tendon of lower back, initial encounter Facial contusion Qualifiers: Encounter type: initial encounter Qualified Code: S00.83XA - Contusion of other part of head, initial encounter Fall Qualifiers: Encounter type: initial encounter Qualified Code: W19.XXXA - Unspecified fall, initial encounter Minor head trauma Neck strain Qualifiers: Encounter type: initial encounter Qualified Code: S16.1XXA - Strain of muscle, fascia and tendon at neck level, initial encounter Sprain of left hip Qualifiers: Encounter type: initial encounter Qualified Code: S73.102A - Unspecified sprain of left hip, initial encounter Referrals: Yesenia Sterling MD (PCP/Family) Departure Forms: Customer Survey General Discharge Information Observation Note Spoke With: Talia Lawrence MD Place Patient In: Non-ED OBS Care Area Rationale for Observation: My rational for observation is as follows patient has experienced a syncopal episode with no prodrome. This raises the possibility of a dysrhythmia with associated hypotension and syncope. The patient has experienced a true syncopal episode given the injury sustained. I do not feel she is a good candidate for outpatient management given the risk of further syncopal episodes with subsequent injury. In addition the patient should be placed on a continuous beer coil cleaner for the possibility of transient dysrhythmia. While in the hospital, serial troponins and EKGs should be considered along with cardiology consultation and echocardiography.
[2017-06-23 10:22] LABS: ABSOLUTE BASOPHIL COUNT 0 /CUMM (0.0-0.2); ABSOLUTE EOSINOPHIL COUNT 0.3 /CUMM (0.0-0.7); ABSOLUTE LYMPH COUNT 1.6 /CUMM (1.2-3.4); RBC DISTRIBUTION WIDTH 14.6 % (11.5-14.5); WHITE BLOOD CELL COUNT 8.3 /CUMM (4.8-10.8)
[2017-06-23 10:29] LABS: ABSOLUTE MONOCYTE COUNT 0.4 /CUMM (0.10-0.60); BASOPHIL % 0.6 % (0.0-2.0); EOSINOPHIL % 3.2 % (0-5); GRANULOCYTE % 73.1 % (42.2-75.2); MEAN CORPUSCULAR HGB 28.3 PG (27.0-31.0); MEAN CORPUSCULAR HGB CONC 32.9 G/DL (33.0-37.0); MEAN PLATELET VOLUME 9.3 FL (7.4-10.4); PLATELET COUNT 349 /CUMM (130-400); RED BLOOD CELL CT 4.34 /CUMM (4.20-5.40)
[2017-06-23 10:30] LABS: HEMATOCRIT 37.4 % (37-47)
--- NOTE | 2017-06-23 11:47 | CT SCAN REPORT ---
EXAMINATION: CT HEAD WITHOUT CONTRAST CT FACIAL BONES WITHOUT CONTRAST CT CERVICAL SPINE WITHOUT CONTRAST CLINICAL INFORMATION: 51-year-old woman post fall. COMPARISON: 06/21/[address] TECHNIQUE: Imaging was performed from the skull base to vertex without intravenous administration of contrast. In addition, helical noncontrast CT imaging was acquired through the cervical spine and facial bones and source images were reviewed along with axial reconstructions and sagittal and coronal MPRs. DLP: 1650 mGy-cm FINDINGS: HEAD: No intracranial mass, hemorrhage, or midline shift is visualized. The ventricles and sulci are age-appropriate. No extra-axial collections are identified. FACIAL BONES: There is no evidence of an acute facial bone fracture. Mild mucosal thickening is seen in the right maxillary sinus and right anterior ethmoid air cells. No significant dental disease is visualized. The orbits are unremarkable in appearance. CERVICAL SPINE: There is no evidence of acute cervical spine fracture. Vertebral bodies remain normal in area and there is straightening of the normal cervical lordosis. Degenerative endplate remodeling is most apparent at C5-C6 and C6-C7. There is moderate loss of normal disc height at C5-C6. No pre- or paravertebral soft tissue abnormality is identified. Limited assessment of the lung apices is unremarkable. IMPRESSION: 1. No acute intracranial process or discrete facial bone fracture. 2. No acute cervical spine fracture or traumatic subluxation.
--- NOTE | 2017-06-23 13:08 | RADIOLOGY REPORT ---
EXAMINATION: XR THORACOLUMBAR SPINE CLINICAL INFORMATION: 51-year-old woman with pain post fall. COMPARISON: 05/28/2017 lateral chest radiograph TECHNIQUE: 2 views of the thoracolumbar spine were obtained. FINDINGS: There is transitional segment anatomy with hypoplastic ribs at T12 and 4 additional nonrib-bearing lumbar type vertebral bodies and sacralization of L5. On the lateral film, vertebral bodies remain in normal in height. Degenerative endplate remodeling with anterior marginal osteophyte formation is seen at most levels in the mid and lower thoracic spine. There is mild loss of normal disc space at L4-L5. There is mild facet arthrosis at L3-L4 and L4-L5. IMPRESSION: No evidence of acute fracture or traumatic subluxation. Mild spondylosis.
[2017-06-23] MEDS ORDERED: ROPINIROLE HCL0.5 MG PO (13:39)
--- NOTE | 2017-06-23 15:16 | RADIOLOGY REPORT ---
EXAMINATION: XR FEMUR, LEFT CLINICAL INFORMATION: Status post fall with left hip and knee pain. COMPARISON: Left knee radiography 01/17/2017. TECHNIQUE: AP and lateral views of the left femur were obtained. FINDINGS: No fracture or dislocation is demonstrated. Given overlying soft tissues, the trabeculae of the left femoral neck are not well visualized. Minimal hypertrophic changes at the left hip joint. There are mild degenerative changes about the knee joint. No significant knee joint effusion or lipohemarthrosis. Surgical clips adjacent to the distal femur. IMPRESSION: No acute osseous abnormality demonstrated. If clinical symptoms persist, consider further evaluation with femur MRI to evaluate for radiographically occult injury.
--- NOTE | 2017-06-23 16:57 | History & Physical ---
Naman Parra 06/23/17 4701: General Information and HPI History of Present Illness: Ms. Virgen is a 51 yo f current smoker (5 cig x > 30 years) with PMH TIA, COPD on 2L oxygen, SHIRIN on nocturnal CPAP, pericarditis s/p pericardial window, Griffin on Droxidopa, hypertension, hyperlipidemia, peripheral neuropathy, ovarian cancer s/p KYAW, anxiety, bipolar disease, depression, opioid dependence, substance abuse, hypothyroidism who presents to the ED for fall after a syncopal episode. Patient reports she was going to the bathroom and on her way back she felt lightheaded, her legs "gave out" and lost consciousness for about 30 minutes. There were no witnesses. She called her niece to help her get up and when her niece arrived she was unable to pick her up and subsequently called 911. She uses a walker to ambulate. She also reports intermittent SOB for 3 weeks accompanied by fatigue. Patient reports last Saturday she had a similar episode with lightheadedness and a fall. Her nurse then called 911 and sent her to the ED. She reports compliance with her medications and home PT twice weekly. She has not had a bowel movement since last Saturday. She denies CP, palpitations, confusion, jerky movements, urinary or bowel symptoms. Allergies/Medications Allergies: Coded Allergies: codeine (Severe, ITCH 10/26/16) lemon (Severe, SOB 10/26/16) melatonin (Severe, HIVES/RASH 10/26/16) PER . -CG 07/16/16 propranolol (Severe, SHOCK PER PT 10/26/16) Home Med list Albuterol Sulfate (Proair Hfa) 90 MCG HFA.AER.AD 2 PUF INH Q4-6 PRN PRN COPD (Reported) Aspirin (Ecotrin*) 81 MG TABLET. 1 TAB PO QAM HEART/BLOOD (Reported) Atorvastatin Calcium (Lipitor) 40 MG TABLET 1 TAB PO QPM CHOLESTEROL ( Reported) Budesonide/Formoterol Fumarate (Symbicort 160-4.5 Mcg Inhaler) 10.2 GM HFA.AER.AD 2 PUF INH BID COPD (Reported) Clonazepam 0.5 MG TABLET 1 TAB PO QPM SLEEP (Reported) Droxidopa (Northera) 100 MG CAPSULE 6 CAP PO TID POTS (Reported) Ergocalciferol (Vitamin D2) (Vitamin D2) 50,000 UNIT CAPSULE 1 CAP PO QTHURS SUPPLEMENT (Reported) Fenofibrate Nanocrystallized (Fenofibrate) 145 MG TABLET 1 TAB PO DAILY CHOLESTEROL/TRIGLYCERIDES (Reported) Fluticasone Propionate 16 GM SPRAY.SUSP 2 SPRAY NASB DAILY ALLERGIES ( Reported) Folic Acid 1 MG TABLET 1 TAB PO QAM SUPPLEMENT (Reported) Levothyroxine Sodium 50 MCG TABLET 1 TAB PO DAILY AC THYROID (Reported) Linaclotide (Linzess) 290 MCG CAPSULE 1 CAP PO DAILY CIC (Reported) [place] Carbonate 300 MG CAPSULE 600 MG PO AT BEDTIME bipolar depression [place] Carbonate 300 MG CAPSULE 1 TAB PO 1000 bipolar d/o Meclizine HCl 12.5 MG TABLET 1 TAB PO TID PRN VERTIGO (Reported) Metformin HCl 1,000 MG TABLET 1 TAB PO BID DIABETES (Reported) Midodrine HCl 10 MG TABLET 1 TAB PO BID POTS (Reported) Pantoprazole Sodium (Protonix) 40 MG TABLET.DR 1 TAB PO DAILY GERD (Reported) Ropinirole HCl (Requip) 1 MG TABLET 2 TAB PO QPM RLS (Reported) Ropinirole HCl 0.5 MG TABLET 1 TAB PO BID RLS (Reported) Sertraline HCl 50 MG TABLET 150 MG PO 0800 anti-depressant Past History Travel History Traveled to [place] past 21 day No Medical History Neurological: dizziness, peripheral neuropathy, TIA, TRIGEMINAL NEURALGIA NEUROPATHY gait disturbance (uses a walker); ?neurological basis EENT: NONE Cardiovascular: angina (hx "atypical chest pain" ), hypertension, hyperlipidemia , HIGH TRYGLCERIDES recent cardiac catheterizations were negative for occlusive coronary artery disease PERICARDITIS Respiratory: pneumonia, COPD, OBSSLEEP BIPAP Gastrointestinal: ACID REFLUX CHRONIC/IDEOPA ABDOMINAL HERNIA Renal: NONE Musculoskeletal: R ANKLE FX AND REPAIR Psychiatric: anxiety, bipolar disease, depression, opioid dependence, substance abuse (possible benzo. 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 MOTHER (CHF, COPD). Psychosocial History Who Do You Live With? self Services at Home: Home Health Aide, Nursing Primary Language: Indian Functional Ability ADLs Independent: dressing, eating, toileting, bathing. Ambulation: walker IADLs Independent: shopping, housework, finances, food prep, telephone, transportation , medication admin. Review of Systems Review of Systems Constitutional: Reports: see HPI. Exam & Diagnostic Data Last 24 Hrs of Vital Signs/I&O Vital Signs Date Time Temp Pulse Resp B/P B/P Pulse O2 O2 Flow FiO2 Mean Ox Delivery Rate 06/23 1536 97.6 72 18 159/76 92 Room Air 06/23 0931 98.7 76 18 140/89 93 Room Air Intake & Output 06/23 1600 06/23 0800 06/23 0000 Intake Total 0 Output Total 0 Balance 0 Intake, Oral 0 Output, Urine 0 Patient 211 lb Weight Weight Reported by Patient Measurement Method Physical Exam General Appearance Alert, Oriented X3, Cooperative, No Acute Distress, Obese HEENT Atraumatic, PERRLA, EOMI, Mucous Membr. moist/pink Cardiovascular 2/6 systolic murmur Lungs BL wheezing Abdomen Normal Bowel Sounds, Soft, No Tenderness, Large abdominal girth Extremities No Edema, LLE limited ROM due to pain, L hip tender on palpation Last 24 Hrs of Labs/Matthieu: Laboratory Tests 06/23/17 1255: Urinalysis LIGHT H, Urine Color YEL, Urine Clarity HAZY H, Urine pH 6.0, Ur Specific [place] 1.025, Urine Protein NEG, Urine Ketones NEG, Urine Nitrite NEG, Urine Bilirubin NEG, Urine Urobilinogen 0.2, Ur Leukocyte Esterase SMALL H, Ur Microscopic SEDIMENT EXAMINED, Urine RBC RARE, Urine WBC 10-15 H, Ur Epithelial Cells FEW, Urine Bacteria FEW H, Hyaline Casts RARE H, Urine Mucus MOD H, Urine Hemoglobin NEG, Urine Glucose NEG 06/23/17 1000: Anion Gap 11, Estimated GFR > 60, BUN/Creatinine Ratio 21.7, Glucose 186 H, Calcium 9.9, Total Bilirubin 0.4, AST 12 L, ALT 25, Alkaline Phosphatase 45, Troponin I < 0.01, Total Protein 6.5, Albumin 4.4, Globulin 2.1, Albumin/ Globulin Ratio 2.1, Lipase 187, PT 11.0, INR 1.01, CBC w Diff NO MAN DIFF REQ, RBC 4.34, MCV 86.0, MCH 28.3, MCHC 32.9 L, RDW 14.6 H, MPV 9.3, Gran % 73.1, Lymphocytes % 18.8 L, Monocytes % 4.3, Eosinophils % 3.2, Basophils % 0.6, Absolute Granulocytes 6.0, Absolute Lymphocytes 1.6, Absolute Monocytes 0.4, Absolute Eosinophils 0.3, Absolute Basophils 0 Diagnostic Data EKG Results NS, diffuse T-wave inversion HR [address]Tc [address] CERV SPINE WO IV CONTRAST; CT FACE/SINUS WITHOUT CONT; CT HEAD WO IV CONTRAST FINDINGS: HEAD: No intracranial mass, hemorrhage, or midline shift is visualized. The ventricles and sulci are age-appropriate. No extra-axial collections are identified. FACIAL BONES: There is no evidence of an acute facial bone fracture. Mild mucosal thickening is seen in the right maxillary sinus and right anterior ethmoid air cells. No significant dental disease is visualized. The orbits are unremarkable in appearance. CERVICAL SPINE: There is no evidence of acute cervical spine fracture. Vertebral bodies remain normal in area and there is straightening of the normal cervical lordosis. Degenerative endplate remodeling is most apparent at C5-C6 and C6-C7. There is moderate loss of normal disc height at C5-C6. No pre- or paravertebral soft tissue abnormality is identified. Limited assessment of the lung apices is unremarkable. IMPRESSION: 1. No acute intracranial process or discrete facial bone fracture. 2. No acute cervical spine fracture or traumatic subluxation. XRY-THORACOLUMBAR SPINE FINDINGS: There is transitional segment anatomy with hypoplastic ribs at T12 and 4 additional nonrib-bearing lumbar type vertebral bodies and sacralization of L5. On the lateral film, vertebral bodies remain in normal in height. Degenerative endplate remodeling with anterior marginal osteophyte formation is seen at most levels in the mid and lower thoracic spine. There is mild loss of normal disc space at L4-L5. There is mild facet arthrosis at L3-L4 and L4-L5. IMPRESSION: No evidence of acute fracture or traumatic subluxation. Mild spondylosis. FINDINGS: No fracture or dislocation is demonstrated. Given overlying soft tissues, the trabeculae of the left femoral neck are not well visualized. Minimal hypertrophic changes at the left hip joint. There are mild degenerative changes about the knee joint. No significant knee joint effusion or lipohemarthrosis. Surgical clips adjacent to the distal femur. XRY-FEMUR, LEFT 2 VIEWS IMPRESSION: No acute osseous abnormality demonstrated. If clinical symptoms persist, consider further evaluation with femur MRI to evaluate for radiographically occult injury. Assessment/Plan Assessment: Ms. Virgen is a 51 yo f with PMH TIA, COPD on home oxygen, SHIRIN on nocturnal CPAP, pericarditis s/p pericardial window, hypertension, hyperlipidemia, Griffin on Droxidopa, peripheral neuropathy, ovarian cancer s/p KYAW, anxiety, bipolar disease, depression, opioid dependence, substance abuse, hypothyroidism who presents to the ED for fall after a syncopal episode. Syncope and fall CT head negative. Patient does have a history of Griffin that can be contributing to her symptoms. * Placed on 23 hour observation for further monitoring and evaluation * Cardiology consult * Neurology consult * Serial troponin and ECG to r/o ACS * ECHO to r/o SHD and/or RWMA * Orthostats * TRC/nebs PRN * Nocturnal CPAP * continue home meds DVT prophylaxis: ALPS Code: FULL As Ranked By This Provider Problem List: 1. Syncope and collapse 2. Fall Qualifiers Encounter type: initial encounter Qualified Code: W19.XXXA - Unspecified fall, initial encounter Core Measures/Misc (01/06) Acute Coronary Syndrome ACS Diagnosis: No Congestive Heart Failure Congestive Heart Failure Diagnosis No Cerebrovascular Accident CVA/TIA Diagnosis: No VTE (View Protocol) VTE Risk Factors Age>40 No Mechanical VTE Prophylaxis d/t N/A MechProphylax Ordered No VTE Pharm Prophylaxis d/t NA PharmProphylax ordered Sepsis (View protocol) Sepsis Present: No Norma Bowers MD 06/23/17 1712: Resident Review Statement Resident Statement: examined this patient, discussed with internal communications writer, agreed with internal communications writer, discussed with family Other Findings: CC -patient is a 51-year-old female BIBA secondary to fall. 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 Wall], diabetes, pericarditis status post pericardial window, bipolar depression, restless leg syndrome, TIA, hypothyroidism, opioid dependence, substance abuse, who presents to the hospital emergency department with complaints of fall. According to the patient she was walking from her bathroom to the kitchen to her bedroom when she suddenly passed out, she woke up immediately, thoough she was not able to get up from the floor, after 30 mintues she called her niece. Her niece unable to pick her up, so called 911. According to her she had similar episode of fall on last Saturday in which she had lightheadedness followed by fall. She denies any trauma on her last episode of this episode she hurt her left leg and the knee. She was compliant with her medication. But now days she started feeling more drowsy during the daytime and even she does not take her sleep medication sometimes. She denies for any palpitation, chest pain, sweating, abnormal activity of her body, incontinence of the stool or urine, tongue bite. Of note she also complained that she had shortness of breath since last couple of weeks and she discussed it with Dr. Bartlett and Dr. Wall. She was prescribed a course of prednisone from May 24 - May 30.She uses CPAP with 2 L of oxygen in the night. She has home PT and following the COPD clinic. Allergies -codeine, melatonin, propranolol Medication list-albuterol, aspirin, atorvastatin, clonazepam, naproxen Toprol, fenofibrate, fluticasone, folic acid, levothyroxine, and electrolyte, atrium, lithium, meclizine, metformin, midodrine, pantoprazole, ropinirole. Personal history-walks with a walker, she smokes 1 pack per day since the age of 18 denies alcohol,Illicit drug abuse. ED course- Vital signs-temperature 98.7, pulse 76, respiratory rate 18, blood pressure 140/ 89, SPO2 93% on room air. Blood workup showed-hemoglobin 12.8, hematocrit 37.3, platelet count 349, serum sodium 142, potassium 4.0, anion gap 11, BUN 13, creatinine 0.6, glucose 186, calcium 9.9, AST 12, ALT 25, alkaline phosphatase 45, troponin I is less than 0.01, albumin 4.4, PT/INR 11.0/1.01, urinalysis showed WBC of 10-15, X-ray of thoracolumbar spine-no acute fractures or traumatic subluxation mild spondylosis X-ray of the femur -no acute osseous abnormality CT scan of the head -no acute intracranial process CT scan of sinuses - no any fractures of the facial bones - CT scan of the cervical spine -No fracture of the cervical spine or subluxation Assessment and plan - Patient is 51-year-old female with multiple medical issues including orthostatic hypotension is on midodrine, multiple pain medication presented with a history of recurrent fall. He does not have any symptoms before and afterwards the fall. She always has baseline dizziness. She always feels dizzy while changing her position from sitting to upright. Will check her orthostatic vitals and if her positive then will give IV fluids. We will observe her on telemetry floor for further evaluation of any arrhythmia. She has history of peripheral neuropathy secondary to diabetes,that may increase her fall risk. We will obtain cardiology and neurology consult. Episode of syncope -rule out seizure/arrhythmia/hypertension/peripheral neuropathy * Observe the patient to telemetry floor * Watch for arrhythmia * Obtain cardiology/neurology consult * Orthostatic blood pressure -130/59 on lying, 127/62 sitting, 123/57 on standing * PT consult * case management consult * Take all fall precautions Type 2 diabetes * Blood sugar 3 times daily/at bedtime * NovoLog according to the sliding scale Bipolar disorder * We will check blood lithium level -0.7 * We will continue all medication Hypothyroidism * We will continue tablet levothyroxine 50 mcg daily Chronic medical condition * Continue aspirin, atorvastatin, * We do not have Droxidopa, Linaclotide - WE ORDERED NON FORMULARY. CODE STATUS -DNR/DNI DVT prophylaxis-ALPS Diet -heart healthy diet Talia Lawrence MD 06/23/171918: Attending MD Review Statement Attending Statement Attending MD Statement: examined this patient, discuss w/resident/PA/SALES ENABLEMENT MANAGER, agreed w/resident/PA/SALES ENABLEMENT MANAGER, reviewed EMR data (avail) Attending Assessment/Plan: 51F PMH COPD [on 2 L of oxygen at night with CPAP], coronary artery disease [40% LAD stenosis, [id number]], orthostatic hypotension, SHIRIN [compliant with her CPAP, follows Dr. Wall], diabetes, pericarditis status post pericardial window, bipolar depression, restless leg syndrome, TIA, hypothyroidism presents with syncopal episode. Was in her usual state of health, felt dizzy all day, went to the bathroom, and when walking back from the bathroom syncopized and hit her head on the ground. Out a few seconds, no prior symptoms except for dizziness, no seizure-like symptoms or post-ictal state. Currently asymptomatic with no complaints. 1. Syncope Plan - Observation in telemetry - Check orthostatics - Cardiology consult - Continue home medications - Check [place] level - DVT PPx
[2017-06-23 20:35] VITALS: BP 140/88
[2017-06-23 22:25] VITALS: BP 140/78
[2017-06-24 06:41] VITALS: BP 144/82
--- NOTE | 2017-06-24 07:34 | PN- Housestaff ---
Naman Parra 06/24/17 0733: Subjective Follow-up For: Syncope Fall Tele-Events Since Last Visit: NS HR 59-68 Subjective: Patient reports BL hip pain. No acute events overnight Review of Systems Constitutional: Reports: see HPI. Objective Last 24 Hrs of Vital Signs/I&O Vital Signs Date Time Temp Pulse Resp B/P B/P Pulse O2 O2 Flow FiO2 Mean Ox Delivery Rate 06/24 1438 98.1 68 20 140/70 93 Nasal Cannula / 0800 97 Nasal 3.0L Cannula / 0641 98.2 64 18 144/82 93 Nasal 2.0L Cannula / 0007 64 92 03/ 0000 CPAP 03/ 2236 69 96 03/ 2225 98.5 66 18 140/78 93 Nasal 2.0L Cannula / 2035 66 140/88 03/ 1948 95.9 72 18 143/75 92 Room Air 03/ 1820 89 Nasal 2.0L Cannula / 1716 96.0 72 18 158/75 92 Room Air 03/04 1536 97.6 72 18 159/76 92 Room Air Intake & Output / 1600 /05 0800 / 0000 Intake Total 120 120 Output Total 100 Balance -100 120 120 Intake, Oral 120 120 Output, Urine 100 Patient 200 lb Weight Physical Exam General Appearance: Alert, Oriented X3, Cooperative, on 2LNC Cardiovascular: 2/6 systolic murmur Lungs: BL wheezing Extremities: No Edema Current Medications: Current Medications Sig/Ralph Start time Last Medication Dose Route Stop Time Status Admin Acetaminophen 325 MG Q6P PRN 06/24 1345 AC PO Acetaminophen 650 MG ONCE ONE 06/24 0645 DC 06/24 PO 06/24 0646 0646 Acetaminophen 1,000 MG ONCE ONE 06/23 1545 DC / N/A 1 UNIT IV 06/23 1559 1559 Acetaminophen 0 .STK-MED ONE 06/23 1541 DC IV Albuterol Sulfate 2 PUF Q4-6 PRN PRN 06/23 1715 AC INH Aspirin Buffered 81 MG QAM / 1000 AC PO Aspirin Buffered 81 MG QAM / 1000 DC 06/24 PO 1022 Atorvastatin Calcium 40 MG QPM / 2200 AC PO Atorvastatin Calcium 40 MG QPM /04 2200 DC 03/ PO 2221 Budesonide/ 2 PUF BID 06/23 2200 AC 06/24 Formoterol Fumarate INH 1021 Clonazepam 0.5 MG QPM 06/23 2200 AC 06/23 PO 06/30 2159 2220 Docusate Sodium 100 MG DAILY NEEDED PRN 06/24 0645 AC 06/24 PO 0646 Droxidopa 600 MG TID 06/23 2200 AC 06/24 PO 1022 Fenofibrate 145 MG DAILY 06/25 1000 AC PO Fenofibrate 145 MG DAILY 06/24 1000 DC 06/24 PO 1023 Fluticasone 2 SPRAY DAILY 06/24 1000 AC 06/24 Propionate TRUMAN 1020 Folic Acid 1 MG QAM 06/24 1000 AC 06/24 PO 1022 Insulin Aspart 0 TIDAC 06/24 0800 AC 06/24 SC 1315 Levothyroxine Sodium 0.05 MG DAILY AC 06/24 0700 AC 06/24 PO 0553 Linaclotide 290 MCG DAILY 06/24 1000 AC 06/24 PO 1022 Linaclotide 290 MCG DAILY NEEDED PRN 06/23 2100 CAN PO [place] Carbonate 300 MG 1000 06/24 1000 AC 06/24 PO 1022 [place] Carbonate 600 MG AT BEDTIME 06/23 2200 AC 06/23 PO 2219 Meclizine HCl 12.5 MG TID PRN 06/23 1730 AC PO Midodrine 10 MG BID 06/23 2200 AC 06/24 PO 1022 Morphine Sulfate 2 MG ONCE ONE 06/23 2245 DC 06/23 IV 06/23 2246 2259 Omeprazole 40 MG DAILY AC 06/24 0700 AC 06/24 PO 0553 Patient Medication 1 ED ONE ONE 06/24 1430 SC Teaching ED 06/24 1431 Patient Medication 1 ED ONE ONE 06/24 1415 SC Teaching ED 06/24 1416 Prednisone 40 MG DAILY 06/24 1114 AC 06/24 PO 1317 Ropinirole HCl 0.5 MG 0800,1200 06/24 0800 AC 06/24 PO 1022 Ropinirole HCl 0.5 MG BID 06/23 2200 DC PO Ropinirole HCl 2 MG QPM 06/23 2200 AC 06/23 PO 2220 Sertraline HCl 150 MG 0800 06/24 0800 AC 06/24 PO 1022 Trimethobenzamide HCl 200 MG TID PRN 06/23 2245 AC 06/23 IM 2300 Last 24 Hrs of Lab/Matthieu Results Last 24 Hrs of Labs/Mics: Laboratory Tests 06/24/17 0620: Anion Gap 12, Estimated GFR > 60, BUN/Creatinine Ratio 18.3, Troponin I < 0.01, CBC w Diff NO MAN DIFF REQ, RBC 4.28, MCV 86.5, MCH 28.5, MCHC 32.9 L, RDW 14.6 H, MPV 9.2, Gran % 74.0, Lymphocytes % 19.9 L, Monocytes % 3.0, Eosinophils % 2.5, Basophils % 0.6, Absolute Granulocytes 5.5, Absolute Lymphocytes 1.5, Absolute Monocytes 0.2, Absolute Eosinophils 0.2, Absolute Basophils 0 06/23/17 1721: [place] 0.7 Assessment/Plan Assessment: Ms. Virgen is a 51 yo f with PMH TIA, COPD on home oxygen, SHIRIN on nocturnal CPAP, pericarditis s/p pericardial window, hypertension, hyperlipidemia, Griffin on Droxidopa, peripheral neuropathy, ovarian cancer s/p KYAW, anxiety, bipolar disease, depression, opioid dependence, substance abuse, hypothyroidism who presents to the ED for fall after a syncopal episode. Syncope and fall most likely multifactorial Patient does have a history of Griffin that can be contributing to her symptoms. Patient is on droxidopa which is known to cause dizziness and she is also on Linzess which is known to cause LOC. CT head negative. * Extend observation for 24 hrs fo rfurther monitoring and evaluation * Cardiology recommendations appreciated * Neurology recommendations appreciated * Serial troponin and ECG to r/o ACS negative * ECHO to r/o SHD and/or RWMA pending * Orthostats negative 06/23/17 * TRC/nebs PRN * Nocturnal CPAP * continue home meds History of COPD * Start prednisone taper DVT prophylaxis: ALPS Code: FULL Problem List: 1. Fall 2. Syncope and collapse Pain Ratin Pain Location: BL hip Pain Goal: Pain 4 or less Pain Plan: Acetaminophen Tomorrow's Labs & Rationales: None Nasreen Chanel 06/24/17 1515: Attending MD Review Statement Attending Statement Attending MD Statement: examined this patient, discuss w/resident/PA/SCRUB TECHNICIAN, agreed w/resident/PA/SCRUB TECHNICIAN, reviewed EMR data (avail), discussed with nursing, discussed with case mgmt Attending Assessment/Plan: pt still wheezing. start prednisone 40mg qdaily. f/u on cardiology input. PT ok with home .
[2017-06-24 08:16] LABS: ABSOLUTE BASOPHIL COUNT 0 /CUMM (0.0-0.2); ABSOLUTE EOSINOPHIL COUNT 0.2 /CUMM (0.0-0.7); ABSOLUTE GRANULOCYTE CT 5.5 /CUMM (1.4-6.5); ABSOLUTE LYMPH COUNT 1.5 /CUMM (1.2-3.4); ABSOLUTE MONOCYTE COUNT 0.2 /CUMM (0.10-0.60); BASOPHIL % 0.6 % (0.0-2.0); EOSINOPHIL % 2.5 % (0-5); MEAN CORPUSCULAR HGB 28.5 PG (27.0-31.0); MEAN CORPUSCULAR HGB CONC 32.9 G/DL (33.0-37.0); MEAN CORPUSCULAR VOLUME 86.5 FL (81.0-99.0); MEAN PLATELET VOLUME 9.2 FL (7.4-10.4); PLATELET COUNT 340 /CUMM (130-400); RBC DISTRIBUTION WIDTH 14.6 % (11.5-14.5); RED BLOOD CELL CT 4.28 /CUMM (4.20-5.40); WHITE BLOOD CELL COUNT 7.4 /CUMM (4.8-10.8)
--- NOTE | 2017-06-24 11:09 | Patient Discharge Instructions ---
Discharge Instructions General Discharge Information You were seen/treated for: Syncope Fall You had these procedures: none Diet Continue normal diet: Yes Activity Other activity limits: As tolerated Acute Coronary Syndrome Inclusion Criteria At DC or during hospital stay patient has or had the following: ACS DIAGNOSIS No Discharge Core Measures Meds if any: Prescribed or Continued at Discharge Meds if any: NOT Prescribed or Continued at Discharge Congestive Heart Failure Inclusion Criteria At DC or during hospital stay patient has or had the following: CHF DIAGNOSIS No Discharge Core Measures Meds if any: Prescribed or Continued at Discharge Meds if any: NOT Prescribed or Continued at Discharge Cerebrovascular accident Inclusion Criteria At DC or during hospital stay patient has or had the following: CVA/TIA Diagnosis No Discharge Core Measures Meds if any: Prescribed or Continued at Discharge Meds if any: NOT Prescribed or Continued at Discharge Venous thromboembolism Inclusion Criteria VTE Diagnosis No VTE Type NONE VTE Confirmed by (Test) NONE Discharge Core Measures - Per Current guidelines, there needs to be overlap - treatment for the first 5 days of Warfarin therapy. - If discharged on Warfarin prior to 5 days of - overlap therapy, the patient will need to be - assessed for post discharge needs including - *Post discharge parental anticoagulation - *Warfarin and/or parental anticoagulation education - *Follow up date to check INR post discharge At least 5 days overlap therapy as Inpatient No Meds if any: Prescribed or Continued at Discharge Note: Overlap Therapy is Warfarin and Anticoagulant Meds if any: NOT Prescribed or Continued at Discharge
[2017-06-24 14:38] VITALS: BP 140/70
[2017-06-24 22:44] VITALS: BP 158/72
--- NOTE | 2017-06-24 23:39 | Cons- Cardiology ---
General Information and HPI Consulting Request Date of Consult: 06/24/17 Requested By: Darío ZUNIGA,Nasreen Stewart History of Present Illness: Danika is a 51 year old female with history of postural orthostatic hypotension initially treated with Midodrine; but to poor effect. She also carries a history of COPD, obstructive sleep apnea, diabetes, TIA and pericarditis s/p pericardial window. She has subsequently been found to have an obstructive cardiomyopathy. Last Simon, this patient had a syncopal episode and was out for about thirty minutes. She also noted a weakness and numbness of her left side prompting a visit to the ER. She was evaluated and sent home at that time. A similar episode occured yesterday for which the patient was admitted. It should be noted that this patient has associated palpitations with these events and this is a new symptom for her. She was recently placed on ropinirole for restless leg syndrome. Otherwise no chest discomfort or shortness of breath. Overall, this patient has been doing much better in terms of lightheadedness and syncope now that she is on Northera. To review this patient's prior history, Danika was previously seen in [facility] with shortness of breath, orthopnea and PND. The patient also reported a mild right chest squeezing that radiated toward her back. Her biggest issue was profound lightheadedness with near syncope to true syncope upon arising from a sitting or supine position. Although these symptoms initially improved, the patient nonetheless still reported about 14 episodes of near syncope and was readmitted to the hospital. No arrythmias were found despite a recurrent episode while in the hospital and on the monitor. In consideration of the above she was started on Northera which has helped dramatically. She had only one episode of lightheadedness while on this medication. It should be noted that her supine BP was running high in the 80 range. At baseline she does have exertional shortness of breath and some chest discomfort that is unchanged. Her last cardiac catheterization showed a 40% mid LAD lesion that was not thought to be flow limiting. I repeated this cardiac catheterization which showed mild luminal irregularities with normal EF of 60%. He tilt table test was suspicious for autonomic dysfunction. I suspect that this patient may have a dynamic outflow tract obstruction and upon arising her pre-load decreases which worsens the obstruction. LVH has been noted on her echocardiogram with anterior systolic motion of the mitral valve and she has persistent T precordial T wave inversions without chest pain consistent with a hypertrophic cardiomyopathy. Although this patient did have an abnormal stress test this past April, it was followed up with by a cardiac catheterization that showed non-obstructive coronaries according to the patient. We opted to stop any medications that would worsen this situation. As such, I stopped Abilify which is associated with bradycardia and orthostatic hypotension , Lasix and Gabepentin which is associated with peripheral edema and vasodilitation. These changes do seem to have helped. Allergies/Medications Allergies: Coded Allergies: codeine (Severe, ITCH 10/26/16) lemon (Severe, SOB 10/26/16) melatonin (Severe, HIVES/RASH 10/26/16) PER . -CG 07/16/16 propranolol (Severe, SHOCK PER PT 10/26/16) Home Med List: Albuterol Sulfate (Proair Hfa) 90 MCG HFA.AER.AD 2 PUF INH Q4-6 PRN PRN COPD (Reported) Aspirin (Ecotrin*) 81 MG TABLET.DR 1 TAB PO QAM HEART/BLOOD (Reported) Atorvastatin Calcium (Lipitor) 40 MG TABLET 1 TAB PO QPM CHOLESTEROL ( Reported) Budesonide/Formoterol Fumarate (Symbicort 160-4.5 Mcg Inhaler) 10.2 GM HFA.AER.AD 2 PUF INH BID COPD (Reported) Clonazepam 0.5 MG TABLET 1 TAB PO QPM SLEEP (Reported) Droxidopa (Northera) 100 MG CAPSULE 6 CAP PO TID POTS (Reported) Ergocalciferol (Vitamin D2) (Vitamin D2) 50,000 UNIT CAPSULE 1 CAP PO QTHURS SUPPLEMENT (Reported) Fenofibrate Nanocrystallized (Fenofibrate) 145 MG TABLET 1 TAB PO DAILY CHOLESTEROL/TRIGLYCERIDES (Reported) Fluticasone Propionate 16 GM SPRAY.SUSP 2 SPRAY NASB DAILY ALLERGIES ( Reported) Folic Acid 1 MG TABLET 1 TAB PO QAM SUPPLEMENT (Reported) Levothyroxine Sodium 50 MCG TABLET 1 TAB PO DAILY AC THYROID (Reported) Linaclotide (Linzess) 290 MCG CAPSULE 1 CAP PO DAILY CIC (Reported) [place] Carbonate 300 MG CAPSULE 600 MG PO AT BEDTIME bipolar depression [place] Carbonate 300 MG CAPSULE 1 TAB PO 1000 bipolar d/o Meclizine HCl 12.5 MG TABLET 1 TAB PO TID PRN VERTIGO (Reported) Metformin HCl 1,000 MG TABLET 1 TAB PO BID DIABETES (Reported) Midodrine HCl 10 MG TABLET 1 TAB PO BID POTS (Reported) Pantoprazole Sodium (Protonix) 40 MG TABLET.DR 1 TAB PO DAILY GERD (Reported) Ropinirole HCl (Requip) 1 MG TABLET 2 TAB PO QPM RLS (Reported) Ropinirole HCl 0.5 MG TABLET 1 TAB PO BID RLS (Reported) Sertraline HCl 50 MG TABLET 150 MG PO 0800 anti-depressant Review of Systems Review of Systems: A twelve point review of systems is unremarkable. Past History Travel History Traveled to [place] past 21 day No Medical History Blood Transfusion Hx: No Neurological: dizziness, peripheral neuropathy, TIA, TRIGEMINAL NEURALGIA NEUROPATHY gait disturbance (uses a walker); ?neurological basis EENT: NONE Cardiovascular: angina (hx "atypical chest pain" ), hypertension, hyperlipidemia , HIGH TRYGLCERIDES recent cardiac catheterizations were negative for occlusive coronary artery disease PERICARDITIS Respiratory: pneumonia, COPD, OBSSLEEP BIPAP Gastrointestinal: ACID REFLUX CHRONIC/IDEOPA ABDOMINAL HERNIA Renal: NONE Musculoskeletal: R ANKLE FX AND REPAIR Psychiatric: anxiety, bipolar disease, depression, opioid dependence, substance abuse (possible benzo. 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 MOTHER (CHF, COPD). Psychosocial History Who Do You Live With? self Services at Home: Home Health Aide, Nursing Primary Language: Afghan Smoking Status: Current Everyday Smoker Functional Ability ADLs Independent: dressing, eating, toileting, bathing. Ambulation: walker IADLs Independent: shopping, housework, finances, food prep, telephone, transportation , medication admin. ECHO Results (as available) Report: Normal left ventricular l size and contractility with moderate left ventricular hypertrophy. No significant valvular abnormalities. Exam & Diagnostic Data Vital Signs and I&O Vital Signs Date Time Temp Pulse Resp B/P B/P Pulse O2 O2 Flow FiO2 Mean Ox Delivery Rate 06/24 2244 98.4 72 20 158/72 91 Nasal Cannula 06/24 2233 65 95 06/24 1600 Room Air 06/24 1438 98.1 68 20 140/70 93 Nasal Cannula 06/24 0800 97 Nasal 3.0L Cannula 06/24 0641 98.2 64 18 144/82 93 Nasal 2.0L Cannula 06/24 0007 64 92 06/24 0000 CPAP Intake & Output 06/24 1600 06/24 0800 06/24 0000 06/23 1600 06/23 0800 06/23 0000 Intake Total 120 120 0 Output Total 100 0 Balance -100 120 120 0 Intake, Oral 120 120 0 Output, Urine 100 0 Patient 200 lb 211 lb Weight Weight Reported by Patient Measurement Method Physical Exam: General: WD/obese female in NAD; alert and oriented x 3 HEENT: NC/AT, PERRL, EOMI Neck: no JVD, no carotid bruit Heart: RRR with 3/6 systolic murmur at the LLSB and RUSB Lungs; decreased air movement without crackles Abdomen: soft, NT, +ve bowel sounds Extemities: no edema Assessment/Plan Assessment/Plan * This patient has a known dynamic outflow tract obstruction with murmur. She was recently started on Ropinirole for restless leg syndrome. Since beginning this medication she has noted rapid palpitations which is a known side effect of this medication. In the setting of an outflow tract obstruction this patient will not do well in the setting of tachycardia which will increase the obstruction and make the heart smaller. In this setting the patient had decreased cardiac outflow and syncopized. Stop Requip. Avoid all medications that make th heart smaller and increase obstruction such and diurectics, drugs that decrease preload of drugs the drop afterload as these medications will increase her gradient by making the heart smaller. * Monitor for 24 hours on all her usual medications except Requip and monitor for recurrent symptoms. Obtain an echocardiogram. Consult Acknowledgment - Thank you for your consult request.
[2017-06-25 07:01] VITALS: BP 154/66
[2017-06-25] MEDS ORDERED: LIDODERM1 EACH EXT (07:53)
[2017-06-25] MEDS ORDERED: PREDNISONE10 M2 PO (07:53)
[2017-06-25] MEDS ORDERED: MELOXICAM7.5 M1 PO (10:52)
--- NOTE | 2017-06-25 12:20 | PN- Housestaff ---
See Addendum Subjective Follow-up For: Syncope Fall Subjective: Patient reports R hip pain not relieved with pain meds. No acute events overnight Review of Systems Constitutional: Reports: see HPI. Objective Last 24 Hrs of Vital Signs/I&O Vital Signs Date Time Temp Pulse Resp B/P B/P Pulse O2 O2 Flow FiO2 Mean Ox Delivery Rate 06/25 0800 91 Room Air Room Air 06/25 0701 98.2 59 20 154/66 91 Room Air / 0018 68 94 03/ 0000 CPAP 06/24 2244 98.4 72 20 158/72 91 Nasal Cannula 06/24 2233 65 95 06/24 1600 Room Air / 1438 98.1 68 20 140/70 93 Nasal Cannula Intake & Output 06/25 1600 06/25 0800 / 0000 Intake Total 400 210 480 Output Total Balance 400 210 480 Intake, IV 10 Intake, Oral 400 200 480 Physical Exam General Appearance: Alert, Oriented X3, Cooperative, No Acute Distress Cardiovascular: 2/6 sytolic murmur Lungs: Mild wheezing Abdomen: Normal Bowel Sounds, Soft, No Tenderness Extremities: R hip tenderness on palpation Current Medications: Current Medications Sig/Ralph Start time Last Medication Dose Route Stop Time Status Admin Acetaminophen 325 MG Q6P PRN / 1345 AC PO Albuterol Sulfate 2 PUF Q4-6 PRN PRN 06/23 1715 AC INH Aspirin Buffered 81 MG QAM 06/25 1000 AC 06/25 PO 0857 Aspirin Buffered 81 MG QAM 06/24 1000 DC 06/24 PO 1022 Atorvastatin Calcium 40 MG QPM 06/24 2200 AC 06/24 PO 2115 Atorvastatin Calcium 40 MG QPM / 2200 DC 06/23 PO 2221 Budesonide/ 2 PUF BID 06/23 2200 AC 06/25 Formoterol Fumarate INH 0854 Celecoxib 200 MG DAILY NEEDED PRN 06/24 1600 AC 06/25 PO 0853 Clonazepam 0.5 MG QPM / 2200 AC / PO 06/30 2159 2116 Docusate Sodium 100 MG DAILY NEEDED PRN 06/24 0645 AC 06/24 PO 0646 Droxidopa 600 MG TID 06/23 2200 AC 06/25 PO 0856 Fenofibrate 145 MG DAILY 06/25 1000 AC 06/25 PO 0858 Fenofibrate 145 MG DAILY 06/24 1000 DC 06/24 PO 1023 Fluticasone 2 SPRAY DAILY 06/24 1000 AC 06/25 Propionate TRUMAN 0854 Folic Acid 1 MG QAM 06/24 1000 AC 06/25 PO 0858 Insulin Aspart 0 TIDAC 06/24 0800 AC 06/25 SC 1202 Ketorolac 30 MG ONCE ONE 06/24 1800 DC 06/24 Tromethamine IV 06/24 1801 1831 Levothyroxine Sodium 0.05 MG DAILY AC 06/24 0700 AC 06/25 PO 0610 Lidocaine 1 PAT DAILY 06/24 1548 AC 06/24 EXT 1635 Linaclotide 290 MCG DAILY 06/24 1000 AC 06/25 PO 0857 [place] Carbonate 300 MG 1000 06/24 1000 AC 06/25 PO 0857 [place] Carbonate 600 MG AT BEDTIME 06/23 2200 AC 06/24 PO 2115 Meclizine HCl 12.5 MG TID PRN 06/23 1730 AC PO Meloxicam 7.5 MG DAILY 06/25 1100 AC 06/25 PO 1130 Midodrine 10 MG BID 06/23 2200 AC 06/25 PO 0857 Omeprazole 40 MG DAILY AC 06/24 0700 AC 06/25 PO 0610 Patient Medication 1 ED ONE ONE 06/24 1430 DC Teaching ED 06/24 1431 Patient Medication 1 ED ONE ONE 06/24 1415 GA Teaching ED 06/24 1416 Prednisone 10 MG DAILY 06/30 1000 AC PO 07/01 0959 Prednisone 20 MG DAILY 06/28 1000 AC PO 06/30 0959 Prednisone 30 MG DAILY 06/26 1000 AC PO 06/28 0959 Prednisone 40 MG DAILY 06/25 1000 CAN PO 07/01 0959 Prednisone 40 MG DAILY 06/25 1000 AC 06/25 PO 06/26 0959 0857 Prednisone 40 MG DAILY 06/24 1114 DC 06/24 PO 1317 Ropinirole HCl 0.5 MG 0800,1200 06/24 0800 DC 06/24 PO 1542 Ropinirole HCl 2 MG QPM 06/23 2200 DC 06/23 PO 2220 Sertraline HCl 150 MG 0800 /05 0800 AC 06/25 PO 0856 Trimethobenzamide HCl 200 MG TID PRN 06/23 2245 AC 06/23 IM 2300 Assessment/Plan Assessment: Ms. Virgen is a 51 yo f with PMH TIA, COPD on home oxygen, SHIRIN on nocturnal CPAP, pericarditis s/p pericardial window, hypertension, hyperlipidemia, POTS on Droxidopa, peripheral neuropathy, ovarian cancer s/p KYAW, anxiety, bipolar disease, depression, opioid dependence, substance abuse, hypothyroidism who presents to the ED for fall after a syncopal episode. Syncope and fall CT head negative. Patient does have a history of POTS that can be contributing to her symptoms. Imaging showed no acute fractures. * Cardiology recommendations appreciated * Neurology recommendations appreciated * Serial troponin and ECG to r/o ACS negative * ECHO to r/o SHD and/or RWMA pending * Orthostats negative * TRC/nebs PRN * Nocturnal CPAP * continue home meds * Patient stable for discharge today DVT prophylaxis: ALPS Code: FULL Problem List: 1. Fall 2. Syncope and collapse Pain Ratin Pain Location: R hip Pain Goal: Pain 4 or less Pain Plan: Lidoderm Meloxicam Tomorrow's Labs & Rationales: None
--- NOTE | 2017-06-25 16:43 | ECHOCARDIOGRAM REPORT ---
DAIJA DONAHUE Age: 51 : 1965 Gender: F Exam Date: 06/25/2017 09:52 Exam Location: 1 [address] Ht (in): 62 Wt (lb): 200 BSA: 2.04 BP: 154 / 66 Ordering Physician: Aaron Martino MD Referring Physician: Aaron Martino MD Technologist: Galen Pruitt [facility] Room Number: 177-1 Indications: PRESYNCOPE/SYNCOPE Rhythm: Sinus Technical Quality: Poor FINDINGS Left Ventricle Normal size left ventricle. Mild concentric left ventricular hypertrophy. No obvious regional wall motion abnormalities. Normal left ventricular ejection fraction visually estimated at >60%. Abnormal relaxation filling pattern of the left ventricle for age (stage 1 diastolic dysfunction). Right Ventricle Normal right ventricular size and function. Right Atrium Normal right atrial size. Left Atrium Normal left atrial size. Mitral Valve Mitral valve not well visualized, grossly normal. No mitral regurgitation. Aortic Valve Aortic valve not well visualized, grossly normal. No aortic valve stenosis or regurgitation. Tricuspid Valve Tricuspid valve not well visualized, grossly normal. No tricuspid regurgitation. Pulmonic Valve Pulmonic valve not well visualized. No pulmonic regurgitation. Pericardium No pericardial effusion. Great Vessels Normal size aortic root. Normal size inferior vena cava. CONCLUSIONS Normal size left ventricle. Mild concentric left ventricular hypertrophy. No obvious regional wall motion abnormalities. Normal left ventricular ejection fraction visually estimated at > 60%. Abnormal relaxation filling pattern of the left ventricle for age (stage 1 diastolic dysfunction). Normal right ventricular size and function. Normal atrial size. Grossly normal appearing valves with no evidence of stenosis or regurgitation. Miguel A Cedeño M.D. (Electronically Signed) Final Date: 25 June 2017 16:42 MEASUREMENTS (Male / Female) Normal Values 2D ECHO LV Diastolic Diameter PLAX 4.5 cm 4.2 - 5.9 / 3.9 - 5.3 cm LV Systolic Diameter PLAX 2.5 cm 2.1 - 4.0 cm LV Fractional Shortening PLAX 44.5 % 25 - 46 % LV Ejection Fraction 2D Teich 75.9 % IVS Diastolic Thickness 1.3 cm LVPW Diastolic Thickness 1.2 cm LV Relative Wall Thickness 0.6 RV Internal Dim ED PLAX 3.0 cm 1.9 - 3.8 cm LVOT Diameter 2.0 cm Aortic Root Diameter 2.7 cm Ascending Aorta Diameter 2.8 cm DOPPLER AV Peak Velocity 146.0 cm/s AV Peak Gradient 8.5 mmHg AV Mean Velocity 100.0 cm/s AV Mean Gradient 5.0 mmHg AV Velocity Time Integral 34.1 cm LVOT Peak Velocity 130.0 cm/s LVOT Peak Gradient 6.8 mmHg LVOT Mean Velocity 89.7 cm/s LVOT Mean Gradient 4.0 mmHg LVOT Velocity Time Integral 31.8 cm LVOT Stroke Volume 99.9 cm AV Area Cont Eq vti 2.9 cm AV Area Cont Eq pk 2.8 cm MV Peak Velocity 116.0 cm/s MV Peak Gradient 5.4 mmHg MV Mean Velocity 60.3 cm/s MV Mean Gradient 2.0 mmHg Mitral E Point Velocity 80.0 cm/s Mitral A Point Velocity 95.8 cm/s Mitral E to A Ratio 0.8 MV PHT Velocity 117.0 cm/s MV Deceleration Coal 471.0 cm/s MV Pressure Half Time 74.5 ms MV Area PHT 3.0 cm MV Deceleration Time 285.0 ms PV Peak Velocity 179.0 cm/s PV Peak Gradient 12.8 mmHg
== END 2017-06-25 14:45 | disposition home health service (06) ==
LOC: ERH 09:24 → ERHI 16:40 → 1NO 16:40 → ENRESERV 19:01 → ENTRNSPT 19:38 → EDTRNSPT 20:06 → EDTRNSPTSTS 20:06 → 1NO 20:11 → CMPTRNSPT 20:20 → 1NO 06-24 07:21 → ENPENDDIS 06-25 10:52 → ENTRNSPT 06-25 14:41 → 1NO 06-25 14:45 → CMPTRNSPT 06-25 15:00
PROVIDERS: Emergency Medicine; Student in an Organized Health Care Education/Training Program
DX: R55 Syncope and collapse (principal); R42 Dizziness and giddiness; E11.42 Type 2 diabetes mellitus with diabetic polyneuropathy; Z79.84 Long term (current) use of oral hypoglycemic drugs; Z85.43 Personal history of malignant neoplasm of ovary; F41.9 Anxiety disorder, unspecified; F31.9 Bipolar disorder, unspecified; F32.9 Major depressive disorder, single episode, unspecified; F11.20 Opioid dependence, uncomplicated; E03.9 Hypothyroidism, unspecified; Z79.82 Long term (current) use of aspirin; K21.9 Gastro-esophageal reflux disease without esophagitis; F17.200 Nicotine dependence, unspecified, uncomplicated; Z85.831 Personal history of malignant neoplasm of soft tissue; Z86.73 Personal history of transient ischemic attack (TIA), and cerebral infarction without residual deficits; J44.9 Chronic obstructive pulmonary disease, unspecified; Z99.81 Dependence on supplemental oxygen; G47.33 Obstructive sleep apnea (adult) (pediatric); I10 Essential (primary) hypertension; E78.5 Hyperlipidemia, unspecified; A18.01 Tuberculosis of spine
CPT/HCPCS: 1288; 1328; 1530; 1748; 36592; 72080; 73552; 81001; 82436; 93005; 93010; 93306; 96372; 96374; 96375; 97116-GP; 97161-GP; G0378; G8978-GP; G8979-GP; G8980-GP; J0131; J1885; J3250; J3490; J7512

== ENCOUNTER 2017-12-19 22:01 | Emergency (ER) | payer OTHER, MEDICARE ==
[~2017-12-19] VITALS: Ht 157.5 cm; Wt 91.6 kg
[~2017-12-19 22:01] MED LIST changes: +MELOXICAM7.5 M1 PO; +ROPINIROLE HCL0.5 MG PO
[2017-12-19 22:11] VITALS: BP 180/74
--- NOTE | 2017-12-19 23:19 | ED GI/GU/ABDOMINAL COMPLAINT ---
History of Present Illness General Chief Complaint: Abdominal Pain/Flank Pain Stated Complaint: ABD PAIN X1 WEEK +NVD Source: patient, family, old records Exam Limitations: no limitations Vital Signs & Intake/Output Vital Signs & Intake/Output Vital Signs Date Time Temp Pulse Resp B/P B/P Pulse O2 O2 Flow FiO2 Mean Ox Delivery Rate 12/191 97.5 75 16 180/74 94 ED Intake and Output 12/20 0000 12/19 1200 Intake Total 0 Output Total Balance 0 Intake, Oral 0 Patient 202 lb Weight Weight Reported by Patient Measurement Method Allergies Coded Allergies: codeine (Severe, ITCH 10/26/16) lemon (Severe, SOB 10/26/16) melatonin (Severe, HIVES/RASH 10/26/16) PER . -CG 07/16/16 propranolol (Severe, SHOCK PER PT 10/26/16) Reconcile Medications Albuterol Sulfate (Proair Hfa) 90 MCG HFA.AER.AD 2 PUF INH Q4-6 PRN PRN COPD (Reported) Aspirin (Ecotrin*) 81 MG TABLET.DR 1 TAB PO QAM HEART/BLOOD (Reported) Atorvastatin Calcium (Lipitor) 40 MG TABLET 1 TAB PO QPM CHOLESTEROL ( Reported) Budesonide/Formoterol Fumarate (Symbicort 160-4.5 Mcg Inhaler) 10.2 GM HFA.AER.AD 2 PUF INH BID COPD (Reported) Cephalexin (Keflex) 500 MG CAPSULE 1 CAP PO TID uit Clonazepam 0.5 MG TABLET 1 TAB PO QPM SLEEP (Reported) Droxidopa (Northera) 100 MG CAPSULE 6 CAP PO TID POTS (Reported) Ergocalciferol (Vitamin D2) (Vitamin D2) 50,000 UNIT CAPSULE 1 CAP PO QTHURS SUPPLEMENT (Reported) Fenofibrate Nanocrystallized (Fenofibrate) 145 MG TABLET 1 TAB PO DAILY CHOLESTEROL/TRIGLYCERIDES (Reported) Fluticasone Propionate 16 GM SPRAY.SUSP 2 SPRAY NASB DAILY ALLERGIES ( Reported) Folic Acid 1 MG TABLET 1 TAB PO QAM SUPPLEMENT (Reported) Levothyroxine Sodium 50 MCG TABLET 1 TAB PO DAILY AC THYROID (Reported) Lidocaine (Lidoderm) 5 % ADH..PATCH 1 PAT EXT DAILY PAIN Linaclotide (Linzess) 290 MCG CAPSULE 1 CAP PO DAILY CIC (Reported) [place] Carbonate 300 MG CAPSULE 600 MG PO AT BEDTIME bipolar depression [place] Carbonate 300 MG CAPSULE 1 TAB PO 1000 bipolar d/o Meclizine HCl 12.5 MG TABLET 1 TAB PO TID PRN VERTIGO (Reported) Meloxicam 7.5 MG TABLET 1 TAB PO DAILY PAIN Metformin HCl 1,000 MG TABLET 1 TAB PO BID DIABETES (Reported) Midodrine HCl 10 MG TABLET 1 TAB PO BID POTS (Reported) Ondansetron (Zofran Odt) 4 MG TAB.RAPDIS 1 TAB SL TID PRN nausea/vomiting Oxycodone HCl 5 MG TABLET 1 TAB PO TIDPRN PRN severe pain Pantoprazole Sodium (Protonix) 40 MG TABLET.DR 1 TAB PO DAILY GERD (Reported) Prednisone 10 MG TABLET 10 TAB PO SEE ADMIN CRITERIA COPD TAKE 30 MG (3TABS) 06/26, 06/27...TAKE 20 MG (2TABS) 06/28, 06/29...TAKE 10 MG 06/30 Sertraline HCl 50 MG TABLET 150 MG PO 0800 anti-depressant Triage Note: PT TO THE ER C/O ABD PAIN X1WEEK. PT STATES THAT IT GOT WORSE TODAY AND THAT SHE STARTED TO VOMIT. RLQ PER PT, PT STATES THAT IT FEELS THE SAME WHEN SHE HAD HERNIA REPAIR.. 01/29 PAIN PER PT PT LAST BM WAS TODAY SMALL. Triage Nurses Notes Reviewed? yes LMP (ages 10-50): post menopausal ? n Is pt currently ? No Onset: Last week Duration: day(s):, constant, continues in ED, getting worse Timing: recent history Quality/Severity: aching, severe, vomiting Location: right lower quadrant Radiation: flank Activities at Onset: rest Prior Abdominal Problems: none Past Sexual History: Unobtainable at this time Modifying Factors: Worsens With: movement, palpation. Associated Symptoms: abdominal pain, fever/chills, loss of appetite, nausea/ vomiting HPI: Monitoring prior to admission patient complains of episodic progressive sharp right lower quadrant pain radiating to flank associated with fever yesterday nausea vomiting today. He denies chest pain cough shortness of breath headache dysuria rash bleeding diarrhea. Past History Travel History Traveled to [place] past 21 day No Medical History Any Pertinent Medical History? see below for history Neurological: dizziness, peripheral neuropathy, TIA, TRIGEMINAL NEURALGIA NEUROPATHY gait disturbance (uses a walker); ?neurological basis EENT: NONE Cardiovascular: angina (hx "atypical chest pain" ), hypertension, hyperlipidemia , HIGH TRYGLCERIDES recent cardiac catheterizations were negative for occlusive coronary artery disease PERICARDITIS Respiratory: pneumonia, COPD, OBSSLEEP BIPAP Gastrointestinal: ACID REFLUX CHRONIC/IDEOPA ABDOMINAL HERNIA Renal: NONE Musculoskeletal: R ANKLE FX AND REPAIR Psychiatric: anxiety, bipolar disease, depression, opioid dependence, substance abuse (possible benzo. 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 MOTHER (CHF, COPD). Hx Contributory? No Review of Systems Review of Systems Constitutional: Reports: see HPI, fever. EENTM: Reports: no symptoms. Respiratory: Reports: no symptoms. Cardiovascular: Reports: no symptoms. GI: Reports: see HPI, abdominal pain, nausea, vomiting. Genitourinary: Reports: no symptoms. Musculoskeletal: Reports: no symptoms. Skin: Reports: no symptoms. Neurological/Psychological: Reports: no symptoms. Hematologic/Endocrine: Reports: no symptoms. Immunologic/Allergic: Reports: no symptoms. All Other Systems: Reviewed and Negative Physical Exam Physical Exam General Appearance: well developed/nourished, alert, awake, anxious, mild distress, obese Head: atraumatic, normal appearance Eyes: Bilateral: normal appearance, PERRL, EOMI, normal inspection. Ears, Nose, Throat, Mouth: hearing grossly normal, moist mucous membrane Neck: normal inspection, supple, full range of motion, normal alignment Respiratory: normal breath sounds, chest non-tender, no respiratory distress, quiet respiration, lungs clear Cardiovascular: regular rate/rhythm, normal peripheral pulses, norml femoral pulses equa Peripheral Pulses: 4+ carotid (R), 4+ carotid (L) Gastrointestinal: normal bowel sounds, soft, non-tender, no organomegaly Back: normal inspection, normal range of motion, no vertebral tenderness Extremities: normal range of motion, no ligament instability Neurologic/Psych: no motor/sensory deficits, awake, alert, oriented x 3, normal gait, normal mood/affect, class a regional drivers II-XII nml as tested Skin: intact, normal color, warm/dry Core Measures ACS in differential dx? No Sepsis Present: No Sepsis Focused Exam Completed? No Progress Differential Diagnosis: appendicitis, biliary colic, cholecystitis, gastritis, pancreatitis, peptic ulcer Plan of Care: Orders Procedure Date/time Status Add-on Test (ER Only) 12/21 35 Active CULTURE,URINE 12/19 2254 Active URINALYSIS 12/19 2254 Complete LIPASE 12/19 2254 Complete LITHIUM 12/19 2254 Complete HIGH SENSITIVITY CRP 12/19 2254 Complete COMPREHENSIVE METABOLIC PANEL 12/19 2254 Complete CBC WITHOUT DIFFERENTIAL 12/19 2254 Complete Laboratory Tests 12/20/17 0006: Urinalysis MOD H, Urine Color YEL, Urine Clarity CLDY H, Urine pH 6.0, Ur Specific [place] >= 1.030, Urine Protein 100 H, Urine Ketones TRACE H, Urine Nitrite NEG, Urine Bilirubin NEG, Urine Urobilinogen 0.2, Ur Leukocyte Esterase SMALL H, Ur Microscopic SEDIMENT EXAMINED, Urine WBC 5-10 H, Ur Epithelial Cells FEW, Urine Bacteria FEW H, Urine Mucus FEW, Urine Hemoglobin NEG, Urine Glucose NEG 12/19/17 2318: Anion Gap 12, Estimated GFR > 60, BUN/Creatinine Ratio 18.9, Glucose 108 H, Calcium 11.2 H, Total Bilirubin 0.7, AST 16, ALT 17, Alkaline Phosphatase 39, C -React Prot High Sens 0.8 L, Total Protein 7.7, Albumin 5.2 H, Globulin 2.5, Albumin/Globulin Ratio 2.1, Lipase 134, CBC w Diff NO MAN DIFF REQ, RBC 4.92, MCV 88.0, MCH 29.0, MCHC 33.0, RDW 13.7, MPV 10.0, Gran % 73.5, Lymphocytes % 17.9 L, Monocytes % 4.4, Eosinophils % 3.6, Basophils % 0.6, Absolute Granulocytes 8.1 H, Absolute Lymphocytes 2.0, Absolute Monocytes 0.5, Absolute Eosinophils 0.4, Absolute Basophils 0.1, [place] 1.7 *H Microbiology 12/19 2254 URINE ROUT: Urine Culture - RECD Diagnostic Imaging: Viewed by Me: CT Scan. Discussed w/RAD: CT Scan. Radiology Impression: 1. Normal appendix. No acute findings identified. 2. Right lower pole 4 mm renal calculus without hydronephrosis. 3. Suggestion of a 1.2 cm left adrenal nodule which may be slightly increased in size from prior. Further workup with nonemergent adrenal protocol CT is recommended. 4. Hepatomegaly. Initial ED EKG: none Comments: The patient reports taking her lithium prior to visit. Departure Departure Time of Disposition: 113 Disposition: HOME OR SELF CARE Condition: Stable Clinical Impression Primary Impression: Abdominal pain Secondary Impressions: Elevated lithium level, UTI (urinary tract infection) Referrals: Hallie ZUNIGA,Yesenia Carrizales (PCP/Family) Additional Instructions: No lithium until dosage discussed with Dr. Herrera. Departure Forms: Customer Survey General Discharge Information Prescriptions: Current Visit Scripts Cephalexin (Keflex) 1 CAP PO TID #21 CAP Oxycodone HCl 1 TAB PO TIDPRN PRN severe pain #15 TAB Ondansetron (Zofran Odt) 1 TAB SL TID PRN nausea/vomiting #10 TAB
[2017-12-19 23:25] LABS: ABSOLUTE BASOPHIL COUNT 0.1 /CUMM (0.0-0.2); ABSOLUTE EOSINOPHIL COUNT 0.4 /CUMM (0.0-0.7); ABSOLUTE GRANULOCYTE CT 8.1 /CUMM (1.4-6.5); ABSOLUTE MONOCYTE COUNT 0.5 /CUMM (0.10-0.60); BASOPHIL % 0.6 % (0.0-2.0); EOSINOPHIL % 3.6 % (0-5); GRANULOCYTE % 73.5 % (42.2-75.2); HEMATOCRIT 43.3 % (37-47); PLATELET COUNT 413 /CUMM (130-400); RBC DISTRIBUTION WIDTH 13.7 % (11.5-14.5); RED BLOOD CELL CT 4.92 /CUMM (4.20-5.40)
[2017-12-19 23:47] LABS: LITHIUM 1.7 mmol/L (0.6-1.2)
--- NOTE | 2017-12-20 00:25 | CT SCAN REPORT ---
EXAMINATION: CT ABDOMEN AND PELVIS WITH CONTRAST CLINICAL INFORMATION: Nausea/vomiting, right lower quadrant pain and tenderness, guarding, rebound COMPARISON: Multiple priors, most recent 11/16/2016 TECHNIQUE: Multidetector volumetric imaging was performed of the abdomen and pelvis following IV administration of 95 mL of Optiray 320 intravenous contrast. Sagittal and coronal reformatted images were obtained on the technologist's workstation. DLP: 1161.09 mGy-cm FINDINGS: LUNG BASES: The visualized lung bases are unremarkable. LIVER, GALLBLADDER, AND BILIARY TREE: The liver is enlarged, measuring approximately 22 cm in craniocaudal dimension. No focal hepatic lesion or biliary ductal dilatation is present. Patient is status post cholecystectomy. PANCREAS: Unremarkable. SPLEEN: Unremarkable. ADRENAL GLANDS: There is suggestion of a 1.2 cm left adrenal nodule, which may be slightly increased in size from a prior study of 03/19/2016. The right adrenal gland appears unremarkable. KIDNEYS AND URETERS: The kidneys are normal in size, shape, and attenuation. There is a redemonstrated right mid renal cyst measuring approximately 1.4 cm. There is a 4 mm right lower pole renal calculus. No hydronephrosis, hydroureter, or obstructing calculi seen. No perinephric stranding. BLADDER: Unremarkable. GASTROINTESTINAL TRACT: No evidence of bowel obstruction. No significant bowel wall thickening or pericolonic inflammation identified. The appendix is unremarkable. No free fluid or free air is seen. ABDOMINAL WALL: No significant hernia is appreciated. LYMPH NODES: Normal. VASCULAR: Unremarkable. PELVIC VISCERA: Patient is status post hysterectomy. OSSEOUS STRUCTURES: Unremarkable. IMPRESSION: 1. Normal appendix. No acute findings identified. 2. Right lower pole 4 mm renal calculus without hydronephrosis. 3. Suggestion of a 1.2 cm left adrenal nodule which may be slightly increased in size from prior. Further workup with nonemergent adrenal protocol CT is recommended. 4. Hepatomegaly.
[2017-12-20] MEDS ORDERED: OXYCODONE HCL5 M1 PO (01:16)
[2017-12-20] MEDS ORDERED: ZOFRAN ODT4 M1 SL (01:16)
[2017-12-20] MEDS ORDERED: KEFLEX500 M1 PO (01:16)
== END 2017-12-20 01:25 ==
LOC: ERH 22:01
PROVIDERS: Emergency Medicine
DX: N39.0 Urinary tract infection, site not specified (principal); R74.8 Abnormal levels of other serum enzymes; F17.210 Nicotine dependence, cigarettes, uncomplicated; F31.9 Bipolar disorder, unspecified; E11.9 Type 2 diabetes mellitus without complications; Z79.84 Long term (current) use of oral hypoglycemic drugs; I10 Essential (primary) hypertension
CPT/HCPCS: 74177; 81001; 87086; 96374; 96375; J0696; J1885; J2405